=== PATIENT | female | born 1950 | race Caucasian/White ===

== ENCOUNTER 2018-03-21 14:02 | Inpatient (IN) | payer MEDICARE, BC, SELFPAY ==
[2018-03-21] VITALS (21 sets, daily range): BP systolic 102–158; BP diastolic 35–74; PULSE 78–103; RESP 16–28; TEMP 36.6–40.9; O2SAT 93–99
[2018-03-21] MEDS: Lactated Ringers 1,000 ML 1000 ML IV (14:32)
[2018-03-21 14:38] LABS: Lactate 2.5 mmol/L (0.6-1.4)
--- NOTE | 2018-03-21 14:39 | W.ED.GENAD ---
Discharge Plan Disposition Patient Disposition: [facility] INPATIENT Condition: Poor Discharge Details Chief Complaint: Fever Clinical Impression: Anemia, GI bleed, Decreased renal function Reason For Visit: PYELONEPHRITIS Admit Date/Time: 03/21/18 17:53 Admit Provider: Ronnie Joseph Attending Provider: Ronnie Joseph Primary Care Provider: Mara Pantoja ED Provider: Shwetha Fishman Discharge Data Discharge Date/Time-TO BE ENTERED AT DEPARTURE: 03/21/18 17:30 Medical Decision Making <Wilton Keane NP - Last Filed: 03/22/18 14:41> Patient presenting to the emergency department with chief complaint of malaise and not feeling well for the past 2 weeks. Significant other reports approximately 2 weeks ago she began feeling chilled and has continued to feel that way up until 2 days ago where she started having some diarrhea. Patient denies any cough, nasal congestion, sinus pressure or cold-like symptoms, denies any vomiting, denies any sick contacts, denies any obvious bloody bowel movements or dark or tarry bowel movements. Physical exam shows a ill-appearing patient that is tachycardic with significant pallor noted, heart sounds are otherwise unremarkable, lung sounds are clear throughout all lung tran, abdomen does have some tenderness to left side but no other physical exam findings are noted. Patient is febrile. Plan to check sepsis labs, and blood cultures, tablets IV access and give fluids. Chest x-ray was also ordered. Plan to review CMP results prior to ordering CT scan of the abdomen. Patient denies any need of pain medication at this time. Review of labs show a lactate of 2.5, hemoglobin 6.3, hematocrit 21.7. Rectal examination was done and showed Hemoccult positive stool specimen but no gross bleeding is noted. Otherwise unremarkable rectal exam. Given significant low hemoglobin and patient being symptomatic I did discuss with patient blood transfusion, possible reactions, risk versus benefit. After this discussion patient was in agreement to receiving blood transfusion and 2 units were ordered to begin as soon as possible. Discussed case with both inpatient hospitalist and general surgeon in regards of patient's symptoms and consideration of possible CT scan but concerned in regards to patient's decreased renal function along with anemia. Hospitalist recommended consulting surgery for concern of GI bleed but stated he would be willing to consult if needed. Spoke with Dr. Modi general surgeon who agreed to come to the emergency department and evaluate the patient. ECG Data Interpretation: EKG reviewed with Dr. Sanford and shows a sinus tachycardia with a rate of 105,, DC intervals of 114, nonspecific ST depression. <DANIELLE Schroeder - Last Filed: 03/21/18 17:38> Care of patient was assumed by myself from Dain Keane NP with recommendations from general surgery pending. General surgeon, Dr. Joseph, evaluated the patient and advised admission. He has placed admission orders. HPI <Wilton Keane NP - Last Filed: 03/22/18 14:41> General Mode of arrival: ambulatory. Date/Time Provider Initiated Documentation: 03/21/18 14:09. Limitations to Documentation: no limitations. Information obtained by: patient, RN/MD and RN notes reviewed. History of Present Illness 67 year old F presents to the emergency department with the chief complaint of Generalized malaise, fever, described as moderate, Quality is described as other (Denies any pain or discomfort), Patient started experiencing this week(s) (2) and it has been constant. No relieving factors improve symptom(s), No exacerbating factors reported . Patient did receive the following treatments prior to arrival, none Related Data Home Medications Medication Instructions Recorded Confirmed lancets [Good4UTouch UltraSoft ea 06/05/12 03/21/18 Lancets] Prilosec OTC 20 mg PO DAILY #90 tab 12/03/14 03/21/18 clotrimazole-betamethasone 1 marky TOPICAL PRN #1 tube 12/03/14 03/21/18 aspirin [Aspirin Low-Strength] 81 mg PO DAILY tab-cap 03/06/15 03/21/18 clobetasol 1 marky TOPICAL HS #1 tube 03/06/15 03/21/18 triamcinolone acetonide 15 gm TOPICAL DAILY script 03/24/17 03/21/18 Good4Utouch Ultra Test Strips 1 ea MISCELLANEOUS TID #300 strip 07/11/17 03/21/18 hydrochlorothiazide 12.5 mg PO DAILY #90 tab-cap 07/14/17 03/21/18 metoprolol tartrate 25 mg PO BID #200 tab 07/14/17 03/21/18 glimepiride 4 mg PO DAILY #90 tab-cap 08/29/17 03/21/18 losartan 100 mg PO DAILY #90 tab-cap 18 03/21/18 metformin 2 tab PO BID #360 tab-cap 08/29/17 03/21/18 pravastatin 10 mg PO DAILY #90 tab-cap 18 03/21/18 lorazepam 0.5 mg tablet 0.5 mg SL TID PRN #10 tab 02/20/18 03/21/18 insulin glargine (U-100) 100 30 unit SUBCUT HS #9 ml 03/08/18 03/21/18 unit/mL (3 mL) subcutaneous pen pen needle, diabetic 31 gauge x #300 ndl 03/08/18 03/21/1808/02 liraglutide [Victoza 3-Melquiades] 1.6 mg SUBCUT DAILY 03/21/18 03/21/18 Previous Rx's Medication Instructions Recorded hydrochlorothiazide 12.5 mg PO DAILY #90 tab-cap 07/14/17 metoprolol tartrate 25 mg PO BID #200 tab 07/14/17 glimepiride 4 mg PO DAILY #90 tab-cap 08/29/17 losartan 100 mg PO DAILY #90 tab-cap 08/29/17 metformin 2 tab PO BID #360 tab-cap 08/29/17 pravastatin 10 mg PO DAILY #90 tab-cap 08/29/17 lorazepam 0.5 mg tablet 0.5 mg SL TID PRN #10 tab 02/20/18 insulin glargine (U-100) 100 30 unit SUBCUT HS #9 ml 03/08/18 unit/mL (3 mL) subcutaneous pen pen needle, diabetic 31 gauge x #300 ndl 03/08/1808/02 Allergies Allergy/AdvReac Type Severity Reaction Status Date / Time ciprofloxacin Allergy Intermediate Skin Rash Verified 03/21/18 14:13 lisinopril AdvReac Intermediate cough Verified 03/21/18 14:13 simvastatin AdvReac Intermediate fatigue Verified 03/21/18 14:13 codeine [Codeine] AdvReac nausea/vomi Verified 03/21/18 14:13 ting General Stated Complaint: Fever ANDRES: 3 Review of Systems <Wilton Keane NP - Last Filed: 03/22/18 14:41> Constitutional Reports chills, Reports fatigue, Reports fever(s) and Reports malaise Cardiovascular Denies chest pain Respiratory Denies cough Gastrointestinal Reports abdominal pain, Denies melena, Denies hematochezia, Reports diarrhea, Reports nausea, Denies vomiting and Denies hematemesis Genitourinary Denies urinary urgency and Denies vaginal discharge Integumentary/Breasts Denies bleeding lesions and Denies unusual bruising Endocrine Reports fatigue PFSH <Wilton Keane NP - Last Filed: 03/22/18 14:41> Medical History Tubular adenoma (Resolved 10/06/15) Other and unspecified hyperlipidemia (Chronic 06/07/12) Non-alcoholic fatty liver disease (Chronic 04/12/11) Lichen sclerosus et atrophicus (Chronic 07/26/11) 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) Gastroesophageal reflux disease (Chronic 04/12/11) Essential hypertension (Chronic 02/05/13) Diabetes mellitus type 2, controlled, without complications (Chronic 06/07/12) COPD (chronic obstructive pulmonary disease) (Acute 10/29/14) Diabetes mellitus, type 2 GERD (gastroesophageal reflux disease) Hiatal hernia Hypertension Lichen sclerosus et atrophicus Premature menopause Surgical History Appendectomy Biopsy of breast Colonoscopy (10/06/15) Endoscopy Family History Father Diabetes Sister Diabetes Breast cancer Other Heart disease Personal history of malignant neoplasm Social History household members: spouse housing: house lives independently: Yes number of children: 3 number of grandchildren: 2 current occupational status: retired well-balanced diet: daily or most days Smoking/Tobacco Use Status: Former Tobacco Use substance use type: does not use seatbelt use: always drive intox or ride w/ intox local 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 working smoke detector in home: Yes fire extinguisher in home: Yes carbon monox detector in home: Yes Exam <Wilton Keane NP - Last Filed: 03/22/18 14:41> Const General: cooperative, no acute distress and ill appearing Nutritional Appearance: thin Orientation: alert, awake and oriented x3 HENMT Mouth: oral mucosa abnormal other (dry) Eyes Conjunctivae: conjunctival abnormality bilaterally pallor Resp Effort & Inspection: normal respiratory effort, able to speak in complete sentences, no grunting and no use of accessory muscles Auscultation: clear to auscultation bilaterally Cardio Rate: tachycardic Rhythm: regular rhythm Heart Sounds: S1 normal, S2 normal, no click, no gallops, no murmurs and no rubs GI Inspection: normal to inspection Palpation: soft, no hepatosplenomegaly, not firm, no guarding and tender in the LLQ and in the LUQ; not at McBurney's point, Spann's sign negative and Rovsing's sign negative Auscultation: high-pitched sounds and hyperactive bowel sounds Back/Spine/Pelvis Back: no CVA tenderness Skin General skin exam: pallor Neuro General: alert, awake, oriented x3, moves all extremities and no focal motor deficits Course <Wilton Keane NP - Last Filed: 03/22/18 14:41> Vital Signs Temperature 38.3 C H 03/21/18 14:07 Pulse 100 H 03/21/18 14:07 Respiratory Rate 18 03/21/18 14:07 Blood Pressure 158/49 H 03/21/18 14:07 Pulse Oximetry 99 03/21/18 14:07 Temperature 38.3 C H 03/21/18 14:07 Temperature Source Temporal Artery Scan 03/21/18 14:07 Pulse 103 H 03/21/18 14:30 Respiratory Rate 18 03/21/18 14:07 Blood Pressure 141/41 H 03/21/18 14:30 Pulse Oximetry 95 03/21/18 14:30 Oxygen Delivery Method Room Air 03/21/18 14:30 Oxygen Flow Rate 0 03/21/18 14:30 Pain Level 0 03/21/18 14:30 Lab/Test Results Lab/Test Results: 03/21/18 14:27 Blood Blood Culture - Pending 03/21/18 14:27 Nose Influenza Types A,B Antigen - Pending 03/21/18 14:24 Blood Blood Culture - Pending Laboratory Tests Range/Units 03/21/18 14:27 Lactate (0.6-1.4) mmol/L 2.5 H* Sign Out <Wilton Keane NP - Last Filed: 03/22/18 14:41> Sign Out Data: Sign Out Comment: Patient signed out to Jerri Fishman pending surgical consult for concern of GI bleed Last updated by Wilton Keane [employer]JUNCT INSTRUCTOR IN [employer]ICS at 03/21/18 16:15
[2018-03-21] MEDS: Ondansetron O.D.T. 4 MG TABEF PO (14:40)
[2018-03-21] MEDS: Acetaminophen 325 MG TAB 650 MG PO (14:40)
[2018-03-21 14:43] LABS: Abs Immature Grans 0.02 k/cumm (0.0-0.09); Absolute Basophil Count 0.01 k/cumm (0.0-0.2); Absolute Lymphocyte Count 0.45 k/cumm (1.2-3.4); Absolute Monocyte Count 0.23 k/cumm (0.11-0.7); Absolute Neutrophil Count 3.34 k/cumm (1.2-6.7); Basophils % 0.2; HCT 21.7 % (36.0-46.0); Immature Grans % 0.5; Lymphocytes % 11.1; Mean Corpuscular Hemoglobin 20.2 pg (27.0-33.0); Mean Corpuscular Volume 69.6 fL (80-95); Monocytes % 5.7; Neutrophils % 82.5; Platelet Count 173 x1000/uL (130-400); RBC 3.12 m/cumm (4.00-5.20); RBC Distribution Width 20.1 % (11.7-14.6); White Blood Cell Count 4.05 k/cumm (4.4-10.8)
--- NOTE | 2018-03-21 14:48 | ED.GENADUL_ITS ---
Discharge Plan Disposition Patient Disposition: [facility] INPATIENT Condition: Poor Discharge Details Chief Complaint: Fever Clinical Impression: Anemia, GI bleed, Decreased renal function Reason For Visit: PYELONEPHRITIS Admit Date/Time: 03/21/18 17:53 Admit Provider: Ronnie Joseph Attending Provider: Ronnie Joseph Primary Care Provider: Mara Pantoja ED Provider: Shwetha Fishman Discharge Data Discharge Date/Time-TO BE ENTERED AT DEPARTURE: 03/21/18 17:30 Medical Decision Making <Wilton Keane NP - Last Filed: 03/22/18 14:41> Patient presenting to the emergency department with chief complaint of malaise and not feeling well for the past 2 weeks. Significant other reports approximately 2 weeks ago she began feeling chilled and has continued to feel that way up until 2 days ago where she started having some diarrhea. Patient denies any cough, nasal congestion, sinus pressure or cold-like symptoms, denies any vomiting, denies any sick contacts, denies any obvious bloody bowel movement s or dark or tarry bowel movements. Physical exam shows a ill-appearing patient that is tachycardic with significant pallor noted, heart sounds are otherwise unremarkable, lung sounds are clear throughout all lung tran, abdomen does have some tenderness to left side but no other physical exam findings are noted. Patient is febrile. Plan to check sepsis labs, and blood cultures, tablets IV access and give fluids. Chest x-ray was also ordered. Plan to review CMP results prior to ordering CT scan of the abdomen. Patient denies any need of pain medication at this time. Review of labs show a lactate of 2.5, hemoglobin 6.3, hematocrit 21.7. Rectal examination was done and showed Hemoccult positive stool specimen but no gross bleeding is noted. Otherwise unremarkable rectal exam. Given significant low hemoglobin and patient being symptomatic I did discuss with patient blood transfusion, possible reactions, risk versus benefit. After this discussion patient was in agreement to receiving blood transfusion and 2 units were ordered to begin as soon as possible. Discussed case with both inpatient hospitalist and general surgeon in regards of patient's symptoms and consideration of possible CT scan but concerned in regards to patient's decreased renal function along with anemia. Hospitalist recommended consulting surgery for concern of GI bleed but stated he would be willing to consult if needed. Spoke with Dr. Modi general surgeon who agreed to come to the emergency department and evaluate the patient. ECG Data Interpretation: EKG reviewed with Dr. Sanford and shows a sinus tachycardia with a rate of 105,, IA intervals of 114, nonspecific ST depression. <DANIELLE Schroeder - Last Filed: 03/21/18 17:38> Care of patient was assumed by myself from Dain Keane NP with recommendations from general surgery pending. General surgeon, Dr. Joseph, evaluated the patient and advised admission. He has placed admission orders. HPI <Wilton Keane NP - Last Filed: 03/22/18 14:41> General Mode of arrival: ambulatory . Date/Time Provider Initiated Documentation: 03/21/18 14:09 . Limitations to Documentation: no limitations . Information obtained by: patient, RN/MD and RN notes reviewed . History of Present Illness 67 year old F presents to the emergency department with the chief complaint of Generalized malaise, fever, described as moderate, Quality is described as other (Denies any pain or discomfort), Patient started experiencing this week(s) (2) and it has been constant. No relieving factors improve symptom(s), No exacerbating factors reported . Patient did receive the following treatments prior to arrival, none Related Data Home Medications Medication Instructions Recorded Confirmed lancets [OneTouch UltraSoft ea 06/05/12 03/21/18 Lancets] Prilosec OTC 20 mg PO DAILY #90 tab 12/03/14 03/21/18 clotrimazole-betamethasone 1 marky TOPICAL PRN #1 tube 12/03/14 03/21/18 aspirin [Aspirin Low-Strength] 81 mg PO DAILY tab-cap 03/06/15 03/21/18 clobetasol 1 amrky TOPICAL HS #1 tube 03/06/15 03/21/18 triamcinolone acetonide 15 gm TOPICAL DAILY script 03/24/17 03/21/18 Onetouch Ultra Test Strips 1 ea MISCELLANEOUS TID #300 strip 07/11/17 03/21/18 hydrochlorothiazide 12.5 mg PO DAILY #90 tab-cap 07/14/17 03/21/18 metoprolol tartrate 25 mg PO BID #200 tab 07/14/17 03/21/18 glimepiride 4 mg PO DAILY #90 tab-cap 08/29/17 03/21/18 losartan 100 mg PO DAILY #90 tab-cap 18 03/21/18 metformin 2 tab PO BID #360 tab-cap 08/29/17 03/21/18 pravastatin 10 mg PO DAILY #90 tab-cap 18 03/21/18 lorazepam 0.5 mg tablet 0.5 mg SL TID PRN #10 tab 02/20/18 03/21/18 insulin glargine (U-100) 100 30 unit SUBCUT HS #9 ml 03/08/18 03/21/18 unit/mL (3 mL) subcutaneous pen pen needle, diabetic 31 gauge x #300 ndl 03/08/18 03/21/1808/02 liraglutide [Victoza 3-Melquiades] 1.6 mg SUBCUT DAILY 03/21/18 03/21/18 Previous Rx's Medication Instructions Recorded hydrochlorothiazide 12.5 mg PO DAILY #90 tab-cap 07/14/17 metoprolol tartrate 25 mg PO BID #200 tab 07/14/17 glimepiride 4 mg PO DAILY #90 tab-cap 08/29/17 losartan 100 mg PO DAILY #90 tab-cap 08/29/17 metformin 2 tab PO BID #360 tab-cap 08/29/17 pravastatin 10 mg PO DAILY #90 tab-cap 08/29/17 lorazepam 0.5 mg tablet 0.5 mg SL TID PRN #10 tab 02/20/18 insulin glargine (U-100) 100 30 unit SUBCUT HS #9 ml 03/08/18 unit/mL (3 mL) subcutaneous pen pen needle, diabetic 31 gauge x #300 ndl 03/08/1808/02 Allergies Allergy/AdvReac Type Severity Reaction Status Date / Time ciprofloxacin Allergy Intermediate Skin Rash Verified 03/21/18 14:13 lisinopril AdvReac Intermediate cough Verified 03/21/18 14:13 simvastatin AdvReac Intermediate fatigue Verified 03/21/18 14:13 codeine [Codeine] AdvReac nausea/vomi Verified 03/21/18 14:13 ting General Stated Complaint: Fever ANDRES: 3 Review of Systems <Wilton Keane NP - Last Filed: 03/22/18 14:41> Constitutional Reports chills, Reports fatigue, Reports fever(s) and Reports malaise Cardiovascular Denies chest pain Respiratory Denies cough Gastrointestinal Reports abdominal pain, Denies melena, Denies hematochezia, Reports diarrhea, Reports nausea, Denies vomiting and Denies hematemesis Genitourinary Denies urinary urgency and Denies vaginal discharge Integumentary/Breasts Denies bleeding lesions and Denies unusual bruising Endocrine Reports fatigue PFSH <Wilton Keane NP - Last Filed: 03/22/18 14:41> Medical History Tubular adenoma (Resolved 10/06/15) Other and unspecified hyperlipidemia (Chronic 06/07/12) Non-alcoholic fatty liver disease (Chronic 04/12/11) Lichen sclerosus et atrophicus (Chronic 07/26/11) 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) Gastroesophageal reflux disease (Chronic 04/12/11) Essential hypertension (Chronic 02/05/13) Diabetes mellitus type 2, controlled, without complications (Chronic 06/07/12) COPD (chronic obstructive pulmonary disease) (Acute 10/29/14) Diabetes mellitus, type 2 GERD (gastroesophageal reflux disease) Hiatal hernia Hypertension Lichen sclerosus et atrophicus Premature menopause Surgical History Appendectomy Biopsy of breast Colonoscopy (10/06/15) Endoscopy Family History Father Diabetes Sister Diabetes Breast cancer Other Heart disease Personal history of malignant neoplasm Social History household members: spouse housing: house lives independently: Yes number of children: 3 number of grandchildren: 2 current occupational status: retired well-balanced diet: daily or most days Smoking/Tobacco Use Status: Former Tobacco Use substance use type: does not use seatbelt use: always drive intox or ride w/ intox log driver: No working smoke detector in home: Yes fire extinguisher in home: Yes carbon monox detector in home: Yes Exam <Wilton Keane NP - Last Filed: 03/22/18 14:41> Const General: cooperative, no acute distress and ill appearing Nutritional Appearance: thin Orientation: alert, awake and oriented x3 HENMT Mouth: oral mucosa abnormal other (dry) Eyes Conjunctivae: conjunctival abnormality bilaterally pallor Resp Effort & Inspection: normal respiratory effort, able to speak in complete sentences, no grunting and no use of accessory muscles Auscultation: clear to auscultation bilaterally Cardio Rate: tachycardic Rhythm: regular rhythm Heart Sounds: S1 normal, S2 normal, no click, no gallops, no murmurs and no rubs GI Inspection: normal to inspection Palpation: soft, no hepatosplenomegaly, not firm, no guarding and tender in the LLQ and in the LUQ; not at McBurney's point, Spann's sign negative and Rovsing's sign negative Auscultation: high-pitched sounds and hyperactive bowel sounds Back/Spine/Pelvis Back: no CVA tenderness Skin General skin exam: pallor Neuro General: alert, awake, oriented x3, moves all extremities and no focal motor deficits Course <Wilton Keane NP - Last Filed: 03/22/18 14:41> Vital Signs Temperature 38.3 C H 03/21/18 14:07 Pulse 100 H 03/21/18 14:07 Respiratory Rate 18 03/21/18 14:07 Blood Pressure 158/49 H 03/21/18 14:07 Pulse Oximetry 99 03/21/18 14:07 Temperature 38.3 C H 03/21/18 14:07 Temperature Source Temporal Artery Scan 03/21/18 14:07 Pulse 103 H 03/21/18 14:30 Respiratory Rate 18 03/21/18 14:07 Blood Pressure 141/41 H 03/21/18 14:30 Pulse Oximetry 95 03/21/18 14:30 Oxygen Delivery Method Room Air 03/21/18 14:30 Oxygen Flow Rate 0 03/21/18 14:30 Pain Level 0 03/21/18 14:30 Lab/Test Results Lab/Test Results: 03/21/18 14:27 Blood Blood Culture - Pending 03/21/18 14:27 Nose Influenza Types A,B Antigen - Pending 03/21/18 14:24 Blood Blood Culture - Pending Laboratory Tests Range/Units 03/21/18 14:27 Lactate (0.6-1.4) mmol/L 2.5 H* Sign Out <Wilton Keane NP - Last Filed: 03/22/18 14:41> Sign Out Data: Sign Out Comment: Patient signed out to Jerri Fishman pending surgical consult for concern of GI bleed Last updated by Wilton Keane [employer]P ROOM SUPERVISOR at 03/21/18 16:15
[2018-03-21 15:04] LABS: HGB 6.3 g/dL (12.0-15.5)
[2018-03-21 15:05] LABS: Anisocytosis 2+; Diff Comment Agrees w/ Instrument; Hypochromasia 3+; Nucleated RBC 1 /100WBC
[2018-03-21 15:06] LABS: Microcytosis 3+; Poikilocytes 1+; Polychromasia Present
--- NOTE | 2018-03-21 15:06 | DI.RAD_ITS ---
SYMPTOMS/DIAGNOSIS: FEVER PA AND LATERAL CHEST: Comparison is made with May,. The heart size is normal. The lungs are well inflated and clear. No infiltrate or effusion is seen. IMPRESSION: Negative chest x-ray.
[2018-03-21 15:19] LABS: ESR 60 MM/HR (0-30)
[2018-03-21 15:28] LABS: ALT 23 U/L (12-78); AST 40 U/L (15-37); Albumin 3.4 g/dL (3.4-5.0); Alkaline Phosphatase 64 U/L (46-116); Anion Gap 13.3 mmol/L (3-11); BUN 18 mg/dL (7-18); Bilirubin, Total 1.6 mg/dL (0.2-1.0); C-Reactive Protein 3.35 mg/dL (0.0-0.3); CO2 25.7 mmol/L (21.0-32.0); Calcium 8.4 mg/dL (8.5-10.1); Chloride 93 mmol/L (98-107); Estimated GFR 49.69 (mL/min/1.73m2); Glucose 112 mg/dL (70-100); Potassium 3.4 mmol/L (3.5-5.1); Sodium 132 mmol/L (136-145); Total Protein 7.2 g/dL (6.4-8.2)
[2018-03-21 15:36] LABS: Bilirubin Small (Negative); Blood Negative (Negative); Clarity Clear; Glucose Negative (Negative); Ketones 15 mg/dL (Negative); Leukocyte Esterase Negative (Negative); Nitrite Positive (Negative); Specific Gravity 1.025 (1.005-1.025); Urobilinogen 0.2 EU/dL (Up TO 0.2); pH 5.5 (5-8)
[2018-03-21 15:49] LABS: Bacteria Packed HPF (Negative)
[2018-03-21 15:50] LABS: C & S Indicated? Yes
--- NOTE | 2018-03-21 15:59 | NUR.NOTE ---
patient drowsy, patient guiac positive, #18 right wrist, patient signed blood consent form. patient to be admitted Nursing Note:
[2018-03-21 18:25] LABS: Magnesium 1.4 mg/dL (1.8-2.4)
--- NOTE | 2018-03-21 19:54 | NUR.NOTE ---
report given to Drake RN, PATIENT TRANSFERED TO FLOOR WITH MONITOR AND BLOOD INFUSING Nursing Note:
[2018-03-21] MEDS: Metoprolol 12.5 MG TAB PO (20:04)
[2018-03-21] MEDS: Lactated Ringers 1,000 ML 150 ML IV (20:05)
[2018-03-21] MEDS: MAGNESIUM SULFATE 2 GM/50 ML BAG IVPB (20:05)
[2018-03-21] MEDS: Normal Saline Flush 10 ML SYR IVP (20:06)
[2018-03-21] MEDS: ACETAMINOPHEN 1,000 MG/100 ML BTL 400 MG IVPB (20:14)
--- NOTE | 2018-03-21 20:28 | W.PM.HP.N ---
Date of service: 03/21/18 Time of Service: 17:00 Assessment and Plan (1) Pyelonephritis, acute: Current visit: Yes Status: Acute Culture pending, started on empiric Zosyn (2) Anemia: Current visit: Yes Status: Acute Will obtain iron studies, suspect that this is chronic, plan for EGD/colonoscopy this admission Qualifiers: Anemia type: unspecified type Qualified Code(s): D64.9 - Anemia, unspecified (3) Fever and chills: Current visit: Yes Status: Acute Secondary to pyelonephritis will treat with tylenol (4) DERRELL (acute kidney injury): Current visit: Yes Status: Acute Fluid resuscitation started, aggressively hydrate, repeat labs in am (5) Supraventricular tachycardia, paroxysmal: Current visit: No Status: Chronic Continue metoprolol, telemetry monitoring. (6) Diabetes mellitus type 2, controlled, without complications: Current visit: No Status: Chronic Started insulin protocol History of Present Illness Chief Complaint: Fever, Fatigue, Anemia Narrative: 67-year-old female presenting to the emergency room with fever and fatigue. She has had about 2 weeks of progressively worsening fatigue with nausea, and anorexia. She also reports a history of diarrhea that has been intermittent before this which was thought to be medication related. She had been traveling over the last few weeks to [place], but denies any known sick contacts. She had been flying on commercial airlines, she has eaten out recently but knows of no other illnesses related to where she ate. Workup in the emergency room showed that she was anemic with a hemoglobin of 6.3. She was hemodynamically stable. She was febrile to 38.3, and is complaining of chills. Further workup showed that she had a urinary tract infection and most likely pyelonephritis on her right side. Chest x-ray showed no acute process. Surgery was consulted for her anemia, and she was admitted to the surgical services for workup of her anemia and treatment of pyelonephritis. Review of Systems Constitutional Reports anorexia, Reports chills, Reports fever(s), Denies headache(s), Reports lethargy, Reports malaise, Reports poor appetite, Denies snoring and Reports weakness Eyes Denies blurry vision, Denies diplopia, Denies loss of vision and Reports requires corrective lenses ENT Denies dental pain, Denies vertigo, Denies dizziness, Denies headache(s), Denies hoarseness, Denies epistaxis, Denies nasal congestion and Denies tinnitus Cardiovascular Denies bluish discoloration of hand/feet, Denies chest pain at rest, Denies chest pain with activity, Denies rapid heart rate, Denies pedal edema, Denies leg edema, Denies lightheadedness, Denies radiating jaw, neck or arm pain and Denies dyspnea Respiratory Denies change in phlegm color, Denies chest congestion, Denies pain on inspiration, Denies dyspnea, Denies snoring and Denies wheezing Gastrointestinal Denies abdominal pain, Denies melena, Denies bloating, Denies cramping, Denies early satiety, Denies dyspepsia, Reports heartburn, Reports loose stools, Reports nausea and Denies vomiting Genitourinary Denies urinary frequency, Denies dysuria, Denies urinary incontinence, Denies urinary hesitancy and Denies urinary urgency Neurologic Denies confusion, Denies vertigo, Denies dizziness, Denies headache(s), Denies loss of vision, Denies convulsions and Reports weakness Psychiatric Reports abnormal sleep pattern, Reports anxiety, Denies confusion, Denies irritability and Denies mood swings Endocrine Denies polyphagia, Denies polydipsia and Denies polyuria Hematologic/Lymphatic Denies easy bleeding and Denies easy bruising Allergic/Immunologic Denies wheezing PFSH Medical History Diabetes mellitus, type 2 GERD (gastroesophageal reflux disease) Hiatal hernia Hypertension Lichen sclerosus et atrophicus Premature menopause Surgical History Appendectomy Biopsy of breast Colonoscopy (10/06/15) Endoscopy Family History Father Diabetes Sister Diabetes Breast cancer Other Heart disease Personal history of malignant neoplasm Social History household members: spouse housing: house lives independently: Yes number of children: 3 number of grandchildren: 2 current occupational status: retired well-balanced diet: daily or most days Smoking/Tobacco Use Status: Former Tobacco Use substance use type: does not use seatbelt use: always drive intox or ride w/ intox route driver coin machines: No working smoke detector in home: Yes fire extinguisher in home: Yes carbon monox detector in home: Yes Meds Home Medications Medication Instructions Recorded Confirmed Type lancets [OneTouch UltraSoft ea 06/05/12 03/21/18 History Lancets] Prilosec OTC 20 mg PO DAILY #90 tab 12/03/14 03/21/18 History clotrimazole-betamethasone 1 marky TOPICAL PRN #1 tube 12/03/14 03/21/18 History aspirin [Aspirin Low-Strength] 81 mg PO DAILY tab-cap 03/06/15 03/21/18 History clobetasol 1 marky TOPICAL HS #1 tube 03/06/15 03/21/18 History triamcinolone acetonide 15 gm TOPICAL DAILY script 03/24/17 03/21/18 History Onetouch Ultra Test Strips 1 ea MISCELLANEOUS TID #300 strip 07/11/17 03/21/18 History hydrochlorothiazide 12.5 mg PO DAILY #90 tab-cap 07/14/17 03/21/18 Rx metoprolol tartrate 25 mg PO BID #200 tab 07/14/17 03/21/18 Rx glimepiride 4 mg PO DAILY #90 tab-cap 08/29/17 03/21/18 Rx losartan 100 mg PO DAILY #90 tab-cap 08/29/17 03/21/18 Rx metformin 2 tab PO BID #360 tab-cap 08/29/17 03/21/18 Rx pravastatin 10 mg PO DAILY #90 tab-cap 08/29/17 03/21/18 Rx lorazepam 0.5 mg tablet 0.5 mg SL TID PRN #10 tab 02/20/18 03/21/18 Rx insulin glargine (U-100) 100 30 unit SUBCUT HS #9 ml 03/08/18 03/21/18 Rx unit/mL (3 mL) subcutaneous pen pen needle, diabetic 31 gauge x #300 ndl 03/08/18 03/21/18 Rx 16 liraglutide [Victoza 3-Melquiades] 1.6 mg SUBCUT DAILY 03/21/18 03/21/18 History Allergies Allergy/AdvReac Type Severity Reaction Status Date / Time ciprofloxacin Allergy Intermediate Skin Rash Verified 03/21/18 14:13 lisinopril AdvReac Intermediate cough Verified 03/21/18 14:13 simvastatin AdvReac Intermediate fatigue Verified 03/21/18 14:13 codeine [Codeine] AdvReac nausea/vomi Verified 03/21/18 14:13 ting Exam Const General: cooperative, no acute distress, well developed and not anxious Nutritional Appearance: average body habitus and well nourished Orientation: alert, awake and oriented x3 HENMT Head: normal to inspection, normocephalic and atraumatic Ears: hearing grossly normal bilaterally General nose exam: external nose normal Face and sinus: normal facial exam Mouth: oral mucosa abnormal other (pale) Teeth and gingiva: dentition normal Throat: posterior oropharynx normal Eyes General: appearance normal, both eyes and all related structures Periorbital: periorbital findings normal Conjunctivae: conjunctivae normal Sclera: sclerae normal Cornea: corneas normal Pupils: PERRL EOM: EOM intact bilaterally Neck Neck: normal visual inspection, trachea midline and supple Chest Chest: normal inspection of the chest Resp Effort & Inspection: normal respiratory effort and able to speak in complete sentences Cardio Jugular venous pressure: no JVD Rate: regular rate Rhythm: regular rhythm Heart Sounds: S1 normal and S2 normal GI Inspection: normal to inspection and non-distended Palpation: not firm, no guarding and nontender Rectal Exam - female: deferred General: CVA tenderness on the right Skin General skin exam: turgor decreased and other (diaphorectic) Lesions: no lesions Rashes: no rashes Hair: normal Neuro General: moves all extremities, no focal motor deficits and CN's II-XI intact bilaterally Extrem General: full ROM, normal capillary refill and no clubbing, cyanosis or edema Psych Appearance: grossly normal and well kempt Mental Status: mental status grossly normal Affect: normal affect Judgment: judgment good Results Labs : 03/21/18 14:27 03/21/18 14:27 Laboratory Results - last 24 hr 03/21/18 03/21/18 03/21/18 14:27 14:27 14:27 WBC 4.05 L RBC 3.12 L Hgb 6.3 L* Hct 21.7 L MCV 69.6 L MCH 20.2 L MCHC 29.0 L RDW 20.1 H Plt Count 173 MPV 10.0 Immature Gran % 0.5 Neutrophils % 82.5 Lymphocytes % 11.1 Monocytes % 5.7 Eosinophils % 0.0 Basophils % 0.2 Absolute Neutrophils 3.34 Absolute Lymphocytes 0.45 L Absolute Monocytes 0.23 Absolute Eosinophils 0.00 Absolute Basophils 0.01 Nucleated RBCs 1 Differential Comment Agrees w/ instrument RBC Morphology See below Polychromasia Present Hypochromasia 3+ Poikilocytosis 1+ Anisocytosis 2+ Microcytosis 3+ ESR 60 H Sodium 132 L Potassium 3.4 L Chloride 93 L Carbon Dioxide 25.7 Anion Gap 13.3 H BUN 18 Creatinine 1.10 H Estimated GFR/1.73 m2 49.69 Glucose 112 H Lactate 2.5 H* Calcium 8.4 L Magnesium Total Bilirubin 1.6 H AST 40 H ALT 23 Alkaline Phosphatase 64 C-Reactive Protein 3.35 H Total Protein 7.2 Albumin 3.4 Urine Color Urine Clarity Urine pH Ur Specific [place] Urine Protein Urine Ketones Urine Blood Urine Nitrite Urine Bilirubin Urine Urobilinogen Ur Leukocyte Esterase Urine RBC Urine WBC Ur Epithelial Cells Urine Crystals Urine Bacteria Urine Mucus Ur Culture Indicated? Urine Glucose Patient ABO/Rh A Positive Antibody Screen Negative Crossmatch See Detail 03/21/18 03/21/18 14:32 15:25 WBC RBC Hgb Hct MCV MCH MCHC RDW Plt Count MPV Immature Gran % Neutrophils % Lymphocytes % Monocytes % Eosinophils % Basophils % Absolute Neutrophils Absolute Lymphocytes Absolute Monocytes Absolute Eosinophils Absolute Basophils Nucleated RBCs Differential Comment RBC Morphology Polychromasia Hypochromasia Poikilocytosis Anisocytosis Microcytosis ESR Sodium Potassium Chloride Carbon Dioxide Anion Gap BUN Creatinine Estimated GFR/1.73 m2 Glucose Lactate Calcium Magnesium 1.4 L Total Bilirubin AST ALT Alkaline Phosphatase C-Reactive Protein Total Protein Albumin Urine Color Jil Urine Clarity Clear Urine pH 5.5 Ur Specific [place] 1.025 Urine Protein 30 H Urine Ketones 15 H Urine Blood Negative Urine Nitrite Positive H Urine Bilirubin Small H Urine Urobilinogen 0.2 Ur Leukocyte Esterase Negative Urine RBC Not Applicable Urine WBC Ur Epithelial Cells Not Applicable Urine Crystals Not Applicable Urine Bacteria Packed Urine Mucus Not Applicable Ur Culture Indicated? Yes Urine Glucose Negative Patient ABO/Rh Antibody Screen Crossmatch Last Vital Signs Temp 37.6 C H 03/21/18 19:59 Pulse 87 03/21/18 19:59 Resp 18 03/21/18 19:59 BP 127/74 03/21/18 19:59 Pulse Ox 99 03/21/18 19:59
[2018-03-21] MEDS: PIPERACILLIN/TAZO 3.375 GM in Normal Saline 50 ML IVPB (22:00)
[2018-03-22] VITALS (18 sets, daily range): BP systolic 98–179; BP diastolic 54–76; PULSE 38–96; RESP 16–24; TEMP 36.6–40.8; O2SAT 93–99
--- NOTE | 2018-03-22 00:42 | NUR.NOTE ---
Pt came from the emergency department accompanied by YANDEL Antoine from the said department. Patient voiced that she is having mild pain to the right flank area after she was assessed by the Dr in the ER department. She gave history of weakness, fever, bloody diarrhoea, chills for 2-3 weeks. On assessment she is conscious, alert, rational oriented x 3. Mucus membrane pale pink but moist chest clear. Abdomen soft flat and non-tender when palpated. Bilateral 18G branulas insitu with Red Blood Cells progressing at 125mls/hr. No signs of allergic reaction noted or no form abnormalities voiced by patient at this time.. Bilateral pedal pulses felt and no abnormalities noted at this time to the lower extremities.
--- NOTE | 2018-03-22 00:50 | NUR.NOTE ---
Alayna was being transfused as ordered with her second bag of RBCs, she state she feels as if she is having chills, vitals were closely being monitored, patient noticed with a fever , this was handed over to the tubing supervisor who consulted the Dr. further encouraged continue monitoring, and to administer the prescribed anti-pyretic scheduled meds and to continue monitoring seeing that the patient was not having any other symptoms. Ice packs were applied to the under arms and side also the groin area and wash cloth placed on forehead.
[2018-03-22] MEDS: Lactated Ringers 1,000 ML 150 ML IV ×4 (02:48→23:34)
[2018-03-22] MEDS: Normal Saline 500 ML 100 ML IV (03:58)
[2018-03-22] MEDS: ACETAMINOPHEN 1,000 MG/100 ML BTL 400 MG IVPB ×3 (04:00→19:34)
[2018-03-22] MEDS: PIPERACILLIN/TAZO 3.375 GM in Normal Saline 50 ML IVPB ×3 (04:17→16:53)
[2018-03-22 07:23] LABS: Abs Immature Grans 0.02 k/cumm (0.0-0.09); Absolute Monocyte Count 0.17 k/cumm (0.11-0.7); Absolute Neutrophil Count 2.53 k/cumm (1.2-6.7); HCT 25.8 % (36.0-46.0); HGB 7.9 g/dL (12.0-15.5); Immature Grans % 0.7; Lymphocytes % 9.9; Mean Corp. HGB Concentration 30.6 g/dL (32.0-36.0); Mean Corpuscular Hemoglobin 22.6 pg (27.0-33.0); Mean Corpuscular Volume 73.9 fL (80-95); Mean Platelet Volume 9.9 fL (8.0-11.0); Monocytes % 5.6; Neutrophils % 83.8; Platelet Count 123 x1000/uL (130-400); RBC 3.49 m/cumm (4.00-5.20); RBC Distribution Width 22.3 % (11.7-14.6); White Blood Cell Count 3.02 k/cumm (4.4-10.8)
[2018-03-22 07:38] LABS: Anion Gap 8.6 mmol/L (3-11); BUN 15 mg/dL (7-18); CO2 28.4 mmol/L (21.0-32.0); CREATININE 0.96 mg/dL (0.55-1.02); Calcium 7.9 mg/dL (8.5-10.1); Chloride 100 mmol/L (98-107); Estimated GFR 58.15 (mL/min/1.73m2); Glucose 110 mg/dL (70-100); Potassium 3.1 mmol/L (3.5-5.1); Sodium 137 mmol/L (136-145)
[2018-03-22 07:52] LABS: Anisocytosis 3+; Microcytosis 3+
[2018-03-22 07:53] LABS: Poikilocytes 2+
[2018-03-22 07:54] LABS: Diff Comment Diff Reviewed; Polychromasia Present
[2018-03-22 08:53] LABS: Lactate-non-spesis 1.8 mmol/L (0.6-1.4)
--- NOTE | 2018-03-22 09:07 | DI.US_ITS ---
SYMPTOM/DIAGNOSIS: PYURIA, ? HYDRONEPHROSIS RENAL ULTRASOUND: Routine examination was performed. The right kidney measures 11.4 cm. long. The left kidney measures 11 cm. long. No renal masses, calculi or obstruction is identified. There is normal and symmetric blood flow to the kidneys. The urinary bladder was non distended and could not be adequately evaluated sonographically. Incidental note is made of enlarged spleen measuring 17 cm. The liver is enlarged measuring 22 cm. There does appear to be increased echogenicity of the liver diffusely suggesting hepatic steatosis. IMPRESSION: 1. No evidence of hydronephrosis. 2. Hepatosplenomegaly with findings suggestive of hepatic steatosis.
--- NOTE | 2018-03-22 09:07 | PDOC.CMIN ---
Care Management Initial Assess REASON FOR HOSPITALIZATION:: Pyelonephritis PAST MEDICAL HISTORY/PAST SURGICAL HISTORY:: COPD, DM type 2, Essential Hypertension, GERD, Cuttate psoriasis, hiatal hernia, histoplasmosis retinitis, hypertension, lichen sclerosus et atrophicus, non-alcoholic fatty liver disease, unspecified hyperlipidemia, premature menopause, tubular adenoma, appendectomy, biopsy of breast, colonoscopy, endoscopy. PREVIOUS FUNCTIONAL STATUS/SOCIAL/FAMILY SUPPORTS:: Alayna resides in [facility] with her , Seymour. She reports her 36 year old son also recently moved back in with them. The couple has two other sons; one in the [place] the [facility] and one resides in [place]. Alayna also reports she has two grandchildren; a granddaughter and grandson and two step grandchildren. Alayna and Seymour enjoy biking, reading, walking and golfing. They report being an active, family oriented couple. CURRENT FUNCTIONAL STATUS:: Alayna was lying in bed when CM met with her. She reported no new changes since her last admission, she is pleasant in inteaction. ADVANCE DIRECTIVES:: Alayna reports plans to complete document with her . Has patient been provided with information about the portal?: Yes Did the patient sign up for the portal?: No CODE STATUS:: Full Code INSURANCE COVERAGE / FINANCIAL ISSUES:: BC/BS. Medicare CURRENT HOME/COMMUNITY SERVICES/EQUIPMENT:: No current services or equipment. PRIMARY CARE PHYSICIAN:: Mara Pantoja MD. POTENTIAL DISCHARGE NEEDS:: Follow up appointments. AD completion. PATIENT/FAMILY EDUCATION NEEDS:: Review of discharge instructions; discuss Ask Me Three. ANTICIPATED BARRIERS TO DISCHARGE:: None identified at this time. TRANSPORTATION:: Via private vehicle with her , Seymour. PLAN:: Per MD, plan for EGD, Colonoscopy during this admission may change due to ongoing fever; Alayna remains on IV ABX at this time. Per MD; colonoscopy EGD once afebrile for 24 hours to do bowel prep, may plan this is outpatient. CM will continue to monitor clinical progress and discharge plan accordingly. Alayna will likely return home with no additional services anticipated at this time. She will transport home via private vehicle with her , Seymour.
[2018-03-22] MEDS: Metoprolol 12.5 MG TAB PO ×2 (10:01→19:34)
[2018-03-22] MEDS: Omeprazole 20 MG CAPCR PO (10:01)
[2018-03-22] MEDS: Potassium Chloride 10 MEQ TABCR PO (10:02)
--- NOTE | 2018-03-22 10:11 | INITIAL_ITS ---
Care Management Initial Assess REASON FOR HOSPITALIZATION:: Pyelonephritis PAST MEDICAL HISTORY/PAST SURGICAL HISTORY:: COPD, DM type 2, Essential Hypertension, GERD, Cuttate psoriasis, hiatal hernia, histoplasmosis retinitis, hypertension, lichen sclerosus et atrophicus, non-alcoholic fatty liver disease, unspecified hyperlipidemia, premature menopause, tubular adenoma, appendectomy, biopsy of breast, colonoscopy, endoscopy. PREVIOUS FUNCTIONAL STATUS/SOCIAL/FAMILY SUPPORTS:: Alayna resides in [facility] with her , Seymour. She reports her 36 year old son also recently moved back in with them. The couple has two other sons; one in the [place] the [facility] and one resides in [place]. Alayna also reports she has two grandchildren; a granddaughter and grandson and two step grandchildren. Alayna and Seymour enjoy biking, reading, walking and golfing. They report being an active, family oriented couple. CURRENT FUNCTIONAL STATUS:: Alayna was lying in bed when CM met with her. She reported no new changes since her last admission, she is pleasant in inteaction. ADVANCE DIRECTIVES:: Alayna reports plans to complete document with her . Has patient been provided with information about the portal?: Yes Did the patient sign up for the portal?: No CODE STATUS:: Full Code INSURANCE COVERAGE / FINANCIAL ISSUES:: BC/BS. Medicare CURRENT HOME/COMMUNITY SERVICES/EQUIPMENT:: No current services or equipment. PRIMARY CARE PHYSICIAN:: Mara Pantoja MD. POTENTIAL DISCHARGE NEEDS:: Follow up appointments. AD completion. PATIENT/FAMILY EDUCATION NEEDS:: Review of discharge instructions; discuss Ask Me Three. ANTICIPATED BARRIERS TO DISCHARGE:: None identified at this time. TRANSPORTATION:: Via private vehicle with her , Seymour. PLAN:: Per MD, plan for EGD, Colonoscopy during this admission may change due to ongoing fever; Alayna remains on IV ABX at this time. Per MD; colonoscopy EGD once afebrile for 24 hours to do bowel prep, may plan this is outpatient. CM will continue to monitor clinical progress and discharge plan accordingly. Alayna will likely return home with no additional services anticipated at this time. She will transport home via private vehicle with her , Seymour.
[2018-03-22] MEDS: Enoxaparin 40 MG/0.4 ML SYR SC (10:19)
[2018-03-22 11:31] LABS: ALT 27 U/L (12-78); Bilirubin, Total 2.2 mg/dL (0.2-1.0); Magnesium 2.2 mg/dL (1.8-2.4)
[2018-03-22] MEDS: Insulin Aspart 300 UNITS/3 ML PEN SC (11:54)
--- NOTE | 2018-03-22 12:22 | PGE_ITS ---
Date of Service Date of service: 03/22/18 Time of Service: 08:00 Assessment and Plan (1) DERRELL (acute kidney injury): Current visit: Yes Status: Acute Responding to fluid, creatinine normalized, magnesium and potassium repleted. Renal ultrasound shows no hydronephrosis. (2) Fever and chills: Current visit: Yes Status: Acute Continued fevers overnight, but overall trend is down. We will continue antibiotics, cooling blanket if needed (3) Anemia: Current visit: Yes Status: Acute Hemoglobin 7.9 this morning with appropriate response from transfusion, remains hemodynamically stable. Continue to trend out H&H's. We will continue prophylactic Lovenox has no evidence of active bleeding. Plan colonoscopy EGD once afebrile for 24 hours to do bowel prep, may plan this is outpatient. Qualifiers: Anemia type: unspecified type Iron deficiency anemia type: Vitamin B12 deficiency anemia type: Folate deficiency anemia type: Bone marrow failure anemia type: Hemolytic anemia type: Other causes of anemia: Chronic kidney disease stage: Qualified Code(s): D64.9 - Anemia, unspecified (4) Pyelonephritis, acute: Current visit: Yes Status: Acute Continued fevers overnight we will continue IV antibiotics will change to regular dosing of Zosyn preliminary culture shows gram-negative rods, and gram negative cocci mixed. Subjective Patient reports: no new complaints, feels better, pain is less, voiding w/o difficulty, bowel movement and fever; denies nausea and vomiting Exam Chest Chest: normal inspection of the chest Resp Effort & Inspection: normal respiratory effort Auscultation: clear to auscultation bilaterally Cardio Jugular venous pressure: no JVD Rate: regular rate Rhythm: regular rhythm Heart Sounds: S1 normal and S2 normal GI Inspection: non-distended Palpation: no guarding and nontender General: CVA tenderness on the right Objective Objective Clinical Data: Vital Signs Temperature 40.4 C H 03/22/18 11:46 Temperature Source Tympanic 03/22/18 07:20 Pulse 38 L 03/22/18 07:20 Pulse Rhythm Regular 03/22/18 08:35 Respiratory Rate 18 03/22/18 07:20 Respiratory Effort Non-Labored 03/22/18 08:35 Respiratory Depth Normal 03/22/18 08:35 Respiratory Pattern Normal 03/22/18 08:35 Blood Pressure 114/71 03/22/18 07:20 Pulse Oximetry 97 03/22/18 07:20 Oxygen Delivery Method Room Air 03/22/18 07:20 Oxygen Flow Rate 0 03/22/18 07:20 Pain Level 0 03/22/18 07:20 Comment 03/22/18 06:02 Intake & Output 03/21/18 03/22/18 03/22/18 18:59 06:59 18:59 Intake Total 3627.333 / 3627.333 1050 / 1050 Balance 3627.333 / 3627.333 1050 / 1050 Weight 66.3 kg Intake: IV 2448.333 / 2448.333 1050 / 1050 Oral 480 / 480 Blood Product 699 / 699 Rbc Leuko Reduced Unit 350 / 350 [id number] Rbc Leuko Reduced Unit 349 / 349 [id number] Other: Urine Color Yellow Urine Appearance Clear Urine Odor None Comment Void x1 in the toilet. Void earlier in the night/morning per pt. report, not visualized by RN. Stool Size Moderate Stool Characteristics Soft Liquid Brown Voiding Methods Toilet Laboratory Results WBC 3.02 k/cumm (4.4-10.8) L 03/22/18 06:58 RBC 3.49 m/cumm (4.00-5.20) L 03/22/18 06:58 Hgb 7.9 g/dL (12.0-15.5) L 03/22/18 06:58 Hct 25.8 % (36.0-46.0) L 03/22/18 06:58 MCV 73.9 fL (80-95) L D 03/22/18 06:58 MCH 22.6 pg (27.0-33.0) L 03/22/18 06:58 MCHC 30.6 g/dL (32.0-36.0) L 03/22/18 06:58 RDW 22.3 % (11.7-14.6) H 03/22/18 06:58 Plt Count 123 x1000/uL (130-400) L 03/22/18 06:58 MPV 9.9 fL (8.0-11.0) 03/22/18 06:58 Immature Gran % 0.7 03/22/18 06:58 Neutrophils % 83.8 03/22/18 06:58 Lymphocytes % 9.9 03/22/18 06:58 Monocytes % 5.6 03/22/18 06:58 Eosinophils % 0.0 03/22/18 06:58 Basophils % 0.0 03/22/18 06:58 Absolute Neutrophils 2.53 k/cumm (1.2-6.7) 03/22/18 06:58 Absolute Lymphocytes 0.30 k/cumm (1.2-3.4) L 03/22/18 06:58 Absolute Monocytes 0.17 k/cumm (0.11-0.7) 03/22/18 06:58 Absolute Eosinophils 0.00 k/cumm (0.0-0.7) 03/22/18 06:58 Absolute Basophils 0.00 k/cumm (0.0-0.2) 03/22/18 06:58 Nucleated RBCs 1 /100WBC 03/21/18 14:27 Differential Comment Diff reviewed 03/22/18 06:58 RBC Morphology See below 03/22/18 06:58 Polychromasia Present 03/22/18 06:58 Hypochromasia 3+ 03/21/18 14:27 Poikilocytosis 2+ 03/22/18 06:58 Anisocytosis 3+ 03/22/18 06:58 Microcytosis 3+ 03/22/18 06:58 ESR 60 MM/HR (0-30) H 03/21/18 14:27 Sodium 137 mmol/L (136-145) 03/22/18 06:58 Potassium 3.1 mmol/L (3.5-5.1) L 03/22/18 06:58 Chloride 100 mmol/L (98-107) 03/22/18 06:58 Carbon Dioxide 28.4 mmol/L (21.0-32.0) 03/22/18 06:58 Anion Gap 8.6 mmol/L (3-11) 03/22/18 06:58 BUN 15 mg/dL (7-18) 03/22/18 06:58 Creatinine 0.96 mg/dL (0.55-1.02) 03/22/18 06:58 Estimated GFR/1.73 m2 58.15 (mL/min/1.73m2) 03/22/18 06:58 Glucose 110 mg/dL (70-100) H 03/22/18 06:58 Lactate 1.8 mmol/L (0.6-1.4) H 03/22/18 08:43 Calcium 7.9 mg/dL (8.5-10.1) L 03/22/18 06:58 Magnesium 2.2 mg/dL (1.8-2.4) 03/22/18 08:43 Total Bilirubin 2.2 mg/dL (0.2-1.0) H 03/22/18 08:43 AST 40 U/L (15-37) H 03/21/18 14:27 ALT 27 U/L (12-78) 03/22/18 08:43 Alkaline Phosphatase 64 U/L (46-116) 03/21/18 14:27 C-Reactive Protein 3.35 mg/dL (0.0-0.3) H 03/21/18 14:27 Total Protein 7.2 g/dL (6.4-8.2) 03/21/18 14:27 Albumin 3.4 g/dL (3.4-5.0) 03/21/18 14:27 Urine Color Jil (Yellow) 03/21/18 15:25 Urine Clarity Clear 03/21/18 15:25 Urine pH 5.5 (5-8) 03/21/18 15:25 Ur Specific [place] 1.025 (1.005-1.025) 03/21/18 15:25 Urine Protein 30 mg/dL (Negative) H 03/21/18 15:25 Urine Ketones 15 mg/dL (Negative) H 03/21/18 15:25 Urine Blood Negative (Negative) 03/21/18 15:25 Urine Nitrite Positive (Negative) H 03/21/18 15:25 Urine Bilirubin Small (Negative) H 03/21/18 15:25 Urine Urobilinogen 0.2 EU/dL (Up TO 0.2) 03/21/18 15:25 Ur Leukocyte Esterase Negative (Negative) 03/21/18 15:25 Urine RBC Not Applicable 03/21/18 15:25 Urine WBC HPF (0-5) 03/21/18 15:25 Ur Epithelial Cells Not Applicable 03/21/18 15:25 Urine Crystals Not Applicable 03/21/18 15:25 Urine Bacteria Packed HPF (Negative) 03/21/18 15:25 Urine Mucus Not Applicable 03/21/18 15:25 Ur Culture Indicated? Yes 03/21/18 15:25 Urine Glucose Negative mg/dL (Negative) 03/21/18 15:25 Patient ABO/Rh A Positive 03/21/18 14:27 Antibody Screen Negative 03/21/18 14:27 Crossmatch See Detail 03/21/18 14:27 US:US renal SYMPTOM/DIAGNOSIS: PYURIA, ? HYDRONEPHROSIS RENAL ULTRASOUND: Routine examination was performed. The right kidney measures 11.4 cm. long. The left kidney measures 11 cm. long. No renal masses, calculi or obstruction is identified. There is normal and symmetric blood flow to the kidneys. The urinary bladder was non distended and could not be adequately evaluated sonographically. Incidental note is made of enlarged spleen measuring 17 cm. The liver is enlarged measuring 22 cm. There does appear to be increased echogenicity of the liver diffusely suggesting hepatic steatosis. IMPRESSION: 1. No evidence of hydronephrosis. 2. Hepatosplenomegaly with findings suggestive of hepatic steatosis.
[2018-03-22 14:07] LABS: Ferritin 34 ng/mL (8-388)
--- NOTE | 2018-03-22 15:24 | CHAPLAIN ---
I had a short visit with Alayna who was trying to rest. I will try another visit at another time.
[2018-03-22 16:23] LABS: HCT 26.3 % (36.0-46.0)
[2018-03-22 16:29] LABS: Potassium 3.6 mmol/L (3.5-5.1)
[2018-03-22 16:53] LABS: Iron 29 ug/dL (50-175); Total Iron Binding Capacity 323 ug/dL (250-450); Transferrin Sat 9 % (15-50)
--- NOTE | 2018-03-22 17:20 | PHARADMIT ---
Addendum entered by Kevon Sanchez III 03/29/18 15:14: Pharmacy Note Subjective MD still awaiting viral studies<> Viral (tick born Vs Malignancy) Objective VS-OK K+3.6 Mag-1.6 Small BM Assessment Vanco trough 27.4 (dose adjusted and retimed by [facility]), Mrapenem continues Plan MD notes, if ParvoVirus (IV ABX parth dc and patient should recover in time. If not patient will be transferred to [facility] Original Note: Addendum entered by Kevon Sanchez III 03/28/18 14:23: Pharmacy Note Subjective MD suspects Parvovirus and is awaiting for results of viral studies, (send out). Fever (38.4) last night, afebrile since Objective VS-OK K+3.5 Mag-1.6 H&H-8.7/18.1 Had BM Assessment IV ABX continue for now, Vancomycin trough ordered for tomorrow if continues Plan watch for viral study results Original Note: Addendum entered by Joleen Zayas 03/27/18 16:30: Pharmacy Note Subjective febrile last night per morning report Objective VS-okay h/h-8.9/29.9(up) alkphos-128(up) Assessment vanco trough came back high at 24.2, held dose for 4 hours and adjusted to 1000 mg Q10H to target a trough of 15.3 doxycycline ordered to cover for possible tick-borne cause spironolactone ordered daily starting today, potassium discontinued Plan order vanco dose when needed; watch for the results of viral and tick studies Original Note: Addendum entered by Joleen Zayas 03/26/18 16:12: Pharmacy Note Subjective pt had transfusion yesterday; she continues to spike fevers daily per morning report Objective BP-143/75 Tmax-39.9 overnight other VS okay K+3.2 h/h-8.7/28.8 plt-120 wbc-2.28(up) Assessment meropenem and vanco continue (day4) nadolol started today; PO potassium given today vanco dose retimed last night, so trough moved until tomorrow morning @1100 Plan HIDA scan today, vanco trough tomorrow adjust dose as necessary Original Note: Addendum entered by Kevon Sanchez III 03/23/18 14:26: Pharmacy Note Subjective Hospitalist has taken over care of patient. Objective Tmax-38.2C VS-OK Plts- 98 WBC-1.54 ANC-1.28 (down) K+3.4 H&H-7.7/25.4 BM today. Assessment Lovenox & Zosyn dc'd (lowered Platelets ?) ABX changed to Vancomycin & Meropenem IV fluids increased. Plan No MD note written today. Original Note: Admission Pharmacy Clinical Review PYELONEPHRITIS Code Status Full Code Current Weight 66.3 kg Renally Cleared and Narrow Therapeutic Index Meds CRCL ~52ML/MIN QTc Value / Action Taken 452 BP Control, Fever 179/70 TEMP 39.3 Electrolytes reviewed OK TODAY DVT Prophylaxis ENOXAPARIN Opiate Usage / Scheduled Bowel Regimen Ordered NO/NO Plt/SCr for Heparin / Enoxaparin 123/0.96 INR for Warfarin NA H/H stable, WBC/Bands 8.0/26.3 WBC 3.02 Antibiotic appropriateness PIP/TAZO Cultures and Sensitivities [facility] Surgical ABX d/c within 24 hr NA DM control / Insulin Dosing INSULIN ASPART AND GLARGINE ,FS 132 Heart Failure (Check EF%) (MOLLY's, B-Block, Diuretics) IV to PO Switch Home Meds Reviewed OK Home Meds Not Ordered clotrimazole-betamethasone 1 marky TOPICAL PRN #1 tube 12/03/14 aspirin [Aspirin Low-Strength] 81 mg PO DAILY tab-cap 03/06/15 clobetasol 1 marky TOPICAL HS #1 tube 03/06/15 [History Confirmed 03/21/18] triamcinolone acetonide 15 gm TOPICAL DAILY script 03/24/17 hydrochlorothiazide 12.5 mg PO DAILY #90 tab-cap 07/14/17 glimepiride 4 mg PO DAILY #90 tab-cap 08/29/17 [Rx Confirmed 03/21/18] losartan 100 mg PO DAILY #90 tab-cap 08/29/17 [Rx Confirmed 03/21/18] metformin 2 tab PO BID #360 tab-cap 08/29/17 [Rx Confirmed 03/21/18] pravastatin 10 mg PO DAILY #90 tab-cap 08/29/17 [Rx Confirmed 03/21/18] lorazepam 0.5 mg tablet 0.5 mg SL TID PRN #10 tab 02/20/18 liraglutide [Victoza 3-Melquiades] 1.6 mg SUBCUT DAILY 03/21/18 Comments
[2018-03-22] MEDS: Ibuprofen 400 MG TAB PO (17:41)
[2018-03-22] MEDS: Potassium Chloride 10 MEQ CAPCR 20 MEQ PO (19:33)
[2018-03-22] MEDS: PIPERACILLIN/TAZO 4.5 GM in Normal Saline 100 ML IVPB (22:25)
[2018-03-22] MEDS: Insulin Glargine 300 UNITS/3 ML PEN 30 UNITS SC (22:26)
[2018-03-23] VITALS (14 sets, daily range): BP systolic 91–170; BP diastolic 55–85; PULSE 64–117; RESP 18–38; TEMP 36.5–39.9; O2SAT 94–99
[2018-03-23] MEDS: ACETAMINOPHEN 1,000 MG/100 ML BTL 400 MG IVPB ×3 (03:56→20:55)
[2018-03-23] MEDS: PIPERACILLIN/TAZO 4.5 GM in Normal Saline 100 ML IVPB (05:38)
[2018-03-23 07:17] LABS: Lactate-non-spesis 1.4 mmol/L (0.6-1.4)
[2018-03-23 07:35] LABS: Anion Gap 8.5 mmol/L (3-11); BUN 14 mg/dL (7-18); Bilirubin, Direct 1.28 mg/dL (0.00-0.20); Bilirubin, Total 1.8 mg/dL (0.2-1.0); CO2 26.5 mmol/L (21.0-32.0); CREATININE 0.94 mg/dL (0.55-1.02); Calcium 7.9 mg/dL (8.5-10.1); Chloride 103 mmol/L (98-107); Creatine Kinase 64 U/L (26-192); Estimated GFR 59.58 (mL/min/1.73m2); Glucose 105 mg/dL (70-100); Magnesium 1.8 mg/dL (1.8-2.4); Potassium 3.4 mmol/L (3.5-5.1); Sodium 138 mmol/L (136-145)
[2018-03-23 08:17] LABS: White Blood Cell Count 1.54 k/cumm (4.4-10.8)
[2018-03-23] MEDS: Enoxaparin 40 MG/0.4 ML SYR SC (08:17)
[2018-03-23 08:18] LABS: HCT 23.5 % (36.0-46.0); HGB 7.3 g/dL (12.0-15.5); Mean Corp. HGB Concentration 31.1 g/dL (32.0-36.0); Mean Corpuscular Hemoglobin 23.1 pg (27.0-33.0); Mean Corpuscular Volume 74.4 fL (80-95); Mean Platelet Volume 10.2 fL (8.0-11.0); RBC 3.16 m/cumm (4.00-5.20); RBC Distribution Width 22.6 % (11.7-14.6)
[2018-03-23] MEDS: Metoprolol 12.5 MG TAB PO ×2 (08:18→20:55)
[2018-03-23] MEDS: Potassium Chloride 10 MEQ CAPCR 20 MEQ PO ×2 (08:18→20:55)
[2018-03-23] MEDS: Omeprazole 20 MG CAPCR PO (08:18)
[2018-03-23 08:19] LABS: Absolute Lymphocyte Count 0.23 k/cumm (1.2-3.4); Absolute Monocyte Count 0.09 k/cumm (0.11-0.7); Anisocytosis 3+; Diff Comment Manual Differential; Hypochromasia 1+; Microcytosis 1+; Polychromasia Present
[2018-03-23 08:21] LABS: Poikilocytes 1+
[2018-03-23 08:23] LABS: Platelet Count 98 x1000/uL (130-400)
[2018-03-23] MEDS: Magnesium Oxide 400 MG TAB PO (10:44)
[2018-03-23] MEDS: Potassium Chloride 20 MEQ TABCR 40 MEQ PO (10:44)
[2018-03-23] MEDS: Normal Saline Flush 10 ML SYR IVP ×3 (10:45→21:00)
[2018-03-23] MEDS: Normal Saline 1,000 ML 200 ML IV ×3 (10:55→23:19)
[2018-03-23] MEDS: VANCOMYCIN 1,000 MG in Normal Saline 250 ML 250 MG IV ×2 (11:15→22:59)
--- NOTE | 2018-03-23 11:47 | PDOC.CMPRO ---
Care Management Progress Note S/O: Alayna has been febrile, per MD her IV ABX will change today and her IV Fluids will increase; she will now be primarily a medical patient under hospitalist and Dr. Joseph will follow as he reports she will likely follow up as an outpatient at this time. A: 67 year old female admitted to [facility] 03/21/17 for Pyelonephritis P: Alayna remains on telemetry, IVF and IV ABX at this time. CM will continue and monitor clinical status for discharge planning considerations. Anticipate Alayna will return home with no additional services at this time and will have outpatient follow up with surgical services of endoscopy colonoscopy.
[2018-03-23] MEDS: Sucralfate 1 GM TAB PO ×3 (12:02→21:46)
[2018-03-23] MEDS: Pantoprazole 40 MG VIAL IVP ×2 (12:03→20:55)
[2018-03-23] MEDS: Insulin Aspart 300 UNITS/3 ML PEN SC ×2 (12:04→18:21)
[2018-03-23 12:07] LABS: HCT 25.4 % (36.0-46.0); HGB 7.7 g/dL (12.0-15.5)
--- NOTE | 2018-03-23 14:13 | CMPROGNOTE_ITS ---
Care Management Progress Note S/O: Alayna has been febrile, per MD her IV ABX will change today and her IV Fluids will increase; she will now be primarily a medical patient under hospitalist and Dr. Joseph will follow as he reports she will likely follow up as an outpatient at this time. A: 67 year old female admitted to [facility] 03/21/17 for Pyelonephritis P: Alayna remains on telemetry, IVF and IV ABX at this time. CM will continue and monitor clinical status for discharge planning considerations. Anticipate Alayna will return home with no additional services at this time and will have outpatient follow up with surgical services of endoscopy colonoscopy.
--- NOTE | 2018-03-23 20:00 | W.PM.PROGNOT ---
Date of Service Date of service: 03/23/18 Time of Service: 20:19 Assessment and Plan (1) Sepsis: Current visit: Yes Status: Acute Evidence of tachycardia, hypotension, fever, elevated Lactate, and low WBC, with urinary source. Currently with worsening WBC and development of pancytopenia with bandemia. Maintained on Zosyn - In the presence of sepsis, will benefit from initial coverage to include ESBL and MRSA for likely complicated UTI. Initiate Vancomycin and Meropenem while awaiting blood and urine cultures. Renal Ultrasound without evidence of abnormalities. Increase IVF rate secondary to hypotension. Monitor closely with low threshold for ICU if condition deteriorates. Of note, culture data reviewed in detail - patient with Urinary Cultures growing an essentially pansensitive E.Coli on March, June, and July of 2013, as well as October of 2015. (2) Anemia: Current visit: Yes Status: Acute Evidence of heme + stool and significantly low hemoglobin. History of GERD reported, with recent worsening symptoms despite oral PPI therapy. Maintain on BID IV PPI and add sucralfate, and plan on endoscopy when stable vs. outpatient EGD/Colonoscopy if patient stabilizes. Continue to trend H/H. Qualifiers: Anemia type: unspecified type Bone marrow failure anemia type: Chronic kidney disease stage: Folate deficiency anemia type: Hemolytic anemia type: Iron deficiency anemia type: Other causes of anemia: Vitamin B12 deficiency anemia type: Qualified Code(s): D64.9 - Anemia, unspecified (3) Fever and chills: Current visit: Yes Status: Acute On basis of UTI with sepsis as above. (4) DERRELL (acute kidney injury): Current visit: Yes Status: Acute Appears resolved with hydration. Renal ultrasound normal. (5) Supraventricular tachycardia, paroxysmal: Current visit: No Status: Chronic History of Paroxysmal SVT - currently maintained on telemetry. BB on hold due to hypotension - would reinitiate as soon as able. (6) Diabetes mellitus type 2, controlled, without complications: Current visit: No Status: Chronic Holding Metformin, Glimepiride, and Liraglutide, but on basal insulin. Continue sliding scale coverage, ADA diet. (7) COPD (chronic obstructive pulmonary disease): Current visit: No Status: Acute Appears quiescent. Duonebs prn. (8) Essential hypertension: Current visit: No Status: Chronic Holding ARB, BB, and thiazide in setting of hypotension and infection. Reinitiate when appropriate. (9) DVT prophylaxis: Current visit: Yes Status: Acute SCDs. No chemical DVT prophylaxis in setting of GI Bleed. Subjective Interval history since last seen: Patient with slight improvement in her symptoms overall, but still doesn't feel well. Reports subjective GERD that is continued and worsened recently. No overnight events reported. Patient remains febrile. Exam Narrative Exam Narrative: General: Patient appears comfortable, pale appearing, AAOX3, NAD Neck: Supple CV: Regular, nontachycardic, S1S2, No rubs, murmurs, or gallops. Pulmonary: Clear to auscultation bilaterally, no crackles, wheezing, or rhonchi Abdomen: + Bowel Sounds, soft, nondistended. Mild epigastric/RUQ/LUQ tenderness on palpation. Vascular: No lower extremity edema Psych: Normal mood and affect. Objective Objective Clinical Data: Abnormal lab results 03/23/18 03/23/18 03/23/18 Range/Units 07:07 07:07 10:55 WBC 1.54 L* D (4.4-10.8) k/cumm RBC 3.16 L (4.00-5.20) m/cumm Hgb 7.3 L 7.7 L (12.0-15.5) g/dL Hct 23.5 L 25.4 L (36.0-46.0) % MCV 74.4 L (80-95) fL MCH 23.1 L (27.0-33.0) pg MCHC 31.1 L (32.0-36.0) g/dL RDW 22.6 H (11.7-14.6) % Plt Count 98 L (130-400) x1000/uL Absolute Lymphocytes 0.23 L (1.2-3.4) k/cumm Absolute Monocytes 0.09 L (0.11-0.7) k/cumm Potassium 3.4 L (3.5-5.1) mmol/L Glucose 105 H (70-100) mg/dL Calcium 7.9 L (8.5-10.1) mg/dL Total Bilirubin 1.8 H (0.2-1.0) mg/dL Conjugated Bilirubin 1.28 H (0.00-0.20) mg/dL Vital Signs Temperature 37.9 C H 03/23/18 16:41 Temperature Source Tympanic 03/23/18 16:41 Pulse 86 03/23/18 16:41 Pulse Rhythm Regular 03/23/18 16:05 Respiratory Rate 18 03/23/18 16:41 Respiratory Effort 03/23/18 16:05 Respiratory Depth Normal 03/23/18 16:05 Respiratory Pattern Normal 03/23/18 16:05 Blood Pressure 113/55 L 03/23/18 16:41 Pulse Oximetry 97 03/23/18 16:41 Oxygen Delivery Method Room Air 03/23/18 16:41 Oxygen Flow Rate 0 03/23/18 16:41 Pain Level 0 03/22/18 11:45 Comment 03/23/18 13:47 Intake & Output 03/22/18 03/23/18 03/23/18 23:59 11:59 23:59 Intake Total 2750 / 7278.333 1665 / 2355 690 / 2355 Output Total 400 / 1425 625 / 1025 400 / 1025 Balance 2350 / 5853.333 1040 / 1330 290 / 1330 Intake: IV 2300 / 5598.333 1300 / 1750 450 / 1750 Oral 450 / 1680 365 / 605 240 / 605 Output: Urine 400 / 1425 375 / 500 125 / 500 Stool 250 / 525 275 / 525 Other: Urine Color Straw Yellow Yellow Urine Appearance Clear Clear Clear Urine Odor Normal Normal Normal Stool Occult Blood Negative Negative Stool Size Small Stool Characteristics Liquid Liquid Liquid Brown Brown Green Voiding Methods Toilet Toilet Laboratory Results WBC 1.54 k/cumm (4.4-10.8) L* D 03/23/18 07:07 RBC 3.16 m/cumm (4.00-5.20) L 03/23/18 07:07 Hgb 7.7 g/dL (12.0-15.5) L 03/23/18 10:55 Hct 25.4 % (36.0-46.0) L 03/23/18 10:55 MCV 74.4 fL (80-95) L 03/23/18 07:07 MCH 23.1 pg (27.0-33.0) L 03/23/18 07:07 MCHC 31.1 g/dL (32.0-36.0) L 03/23/18 07:07 RDW 22.6 % (11.7-14.6) H 03/23/18 07:07 Plt Count 98 x1000/uL (130-400) L 03/23/18 07:07 MPV 10.2 fL (8.0-11.0) 03/23/18 07:07 Immature Gran % See Differential 03/23/18 07:07 Neutrophils % 71.0 03/23/18 07:07 Lymphocytes % 15.0 03/23/18 07:07 Monocytes % 6.0 03/23/18 07:07 Eosinophils % 0.0 03/23/18 07:07 Basophils % 0.0 03/23/18 07:07 Absolute Neutrophils 1.20 k/cumm (1.2-6.7) 03/23/18 07:07 Band Neutrophils 7.0 % 03/23/18 07:07 Absolute Lymphocytes 0.23 k/cumm (1.2-3.4) L 03/23/18 07:07 Absolute Monocytes 0.09 k/cumm (0.11-0.7) L 03/23/18 07:07 Absolute Eosinophils 0.00 k/cumm (0.0-0.7) 03/23/18 07:07 Absolute Basophils 0.00 k/cumm (0.0-0.2) 03/23/18 07:07 Metamyelocytes 1.0 % 03/23/18 07:07 Nucleated RBCs 1 /100WBC 03/21/18 14:27 Differential Comment Manual differential 03/23/18 07:07 RBC Morphology See below 03/23/18 07:07 Polychromasia Present 03/23/18 07:07 Hypochromasia 1+ 03/23/18 07:07 Poikilocytosis 1+ 03/23/18 07:07 Anisocytosis 3+ 03/23/18 07:07 Microcytosis 1+ 03/23/18 07:07 ESR 60 MM/HR (0-30) H 03/21/18 14:27 Sodium 138 mmol/L (136-145) 03/23/18 07:07 Potassium 3.4 mmol/L (3.5-5.1) L 03/23/18 07:07 Chloride 103 mmol/L (98-107) 03/23/18 07:07 Carbon Dioxide 26.5 mmol/L (21.0-32.0) 03/23/18 07:07 Anion Gap 8.5 mmol/L (3-11) 03/23/18 07:07 BUN 14 mg/dL (7-18) 03/23/18 07:07 Creatinine 0.94 mg/dL (0.55-1.02) 03/23/18 07:07 Estimated GFR/1.73 m2 59.58 (mL/min/1.73m2) 03/23/18 07:07 Glucose 105 mg/dL (70-100) H 03/23/18 07:07 Lactate 1.4 mmol/L (0.6-1.4) 03/23/18 07:07 Calcium 7.9 mg/dL (8.5-10.1) L 03/23/18 07:07 Magnesium 1.8 mg/dL (1.8-2.4) 03/23/18 07:07 Iron 29 ug/dL (50-175) L 03/22/18 16:10 TIBC 323 ug/dL (250-450) 03/22/18 16:10 Transferrin Cancelled 03/22/18 08:25 Transferrin % Sat 9 % (15-50) L 03/22/18 16:10 Ferritin 34 ng/mL (8-388) 03/22/18 06:58 Total Bilirubin 1.8 mg/dL (0.2-1.0) H 03/23/18 07:07 Conjugated Bilirubin 1.28 mg/dL (0.00-0.20) H 03/23/18 07:07 AST 40 U/L (15-37) H 03/21/18 14:27 ALT 27 U/L (12-78) 03/22/18 08:43 Alkaline Phosphatase 64 U/L (46-116) 03/21/18 14:27 Creatine Kinase 64 U/L (26-192) 03/23/18 07:07 C-Reactive Protein 3.35 mg/dL (0.0-0.3) H 03/21/18 14:27 Total Protein 7.2 g/dL (6.4-8.2) 03/21/18 14:27 Albumin 3.4 g/dL (3.4-5.0) 03/21/18 14:27 Urine Color Jil (Yellow) 03/21/18 15:25 Urine Clarity Clear 03/21/18 15:25 Urine pH 5.5 (5-8) 03/21/18 15:25 Ur Specific [place] 1.025 (1.005-1.025) 03/21/18 15:25 Urine Protein 30 mg/dL (Negative) H 03/21/18 15:25 Urine Ketones 15 mg/dL (Negative) H 03/21/18 15:25 Urine Blood Negative (Negative) 03/21/18 15:25 Urine Nitrite Positive (Negative) H 03/21/18 15:25 Urine Bilirubin Small (Negative) H 03/21/18 15:25 Urine Urobilinogen 0.2 EU/dL (Up TO 0.2) 03/21/18 15:25 Ur Leukocyte Esterase Negative (Negative) 03/21/18 15:25 Urine RBC Not Applicable 03/21/18 15:25 Urine WBC HPF (0-5) 03/21/18 15:25 Ur Epithelial Cells Not Applicable 03/21/18 15:25 Urine Crystals Not Applicable 03/21/18 15:25 Urine Bacteria Packed HPF (Negative) 03/21/18 15:25 Urine Mucus Not Applicable 03/21/18 15:25 Ur Culture Indicated? Yes 03/21/18 15:25 Urine Glucose Negative mg/dL (Negative) 03/21/18 15:25 Path Cons Comment 03/21/18 14:27 Patient ABO/Rh A Positive 03/21/18 14:27 Antibody Screen Negative 03/21/18 14:27 Crossmatch See Detail 03/21/18 14:27
[2018-03-23] MEDS: Pravastatin 20 MG TAB 10 MG PO (21:46)
--- NOTE | 2018-03-23 23:37 | NUR.NOTE ---
Nursing Note: 2129- pt has eating since lunch ,fingerstick 135 at hs 2129 - pt on glargine insulin 30 units , coordinator Jason Licona informed . 2314 -informed Sana Hudson coordinator r/t insulin also
[2018-03-24] VITALS (13 sets, daily range): BP systolic 113–162; BP diastolic 63–84; PULSE 78–95; RESP 20–40; TEMP 36.8–39.6; O2SAT 95–99
[2018-03-24] MEDS: ACETAMINOPHEN 1,000 MG/100 ML BTL 400 MG IVPB ×3 (04:10→20:37)
--- NOTE | 2018-03-24 04:55 | DI.RAD_ITS ---
SYMPTOM/DIAGNOSIS: SOB PORTABLE AP CHEST: Comparison is made with 03/21/08. The heart is normal in size. The lungs are clear. The mediastinal structures and pleura appear intact. CONCLUSION: Normal chest.
[2018-03-24 05:01] LABS: Abs Immature Grans 0.01 k/cumm (0.0-0.09); HCT 25.8 % (36.0-46.0); HGB 8.1 g/dL (12.0-15.5); Mean Corp. HGB Concentration 31.4 g/dL (32.0-36.0); Mean Corpuscular Hemoglobin 23.5 pg (27.0-33.0); Mean Corpuscular Volume 74.8 fL (80-95); Mean Platelet Volume 10.5 fL (8.0-11.0); Platelet Count 91 x1000/uL (130-400); RBC 3.45 m/cumm (4.00-5.20)
[2018-03-24 05:06] LABS: White Blood Cell Count 1.75 k/cumm (4.4-10.8)
[2018-03-24 05:14] LABS: Anion Gap 12.7 mmol/L (3-11); BUN 5 mg/dL (7-18); Bilirubin, Total 1.7 mg/dL (0.2-1.0); CO2 21.3 mmol/L (21.0-32.0); CREATININE 0.72 mg/dL (0.55-1.02); Calcium 7.4 mg/dL (8.5-10.1); Chloride 104 mmol/L (98-107); Glucose 125 mg/dL (70-100); Magnesium 1.5 mg/dL (1.8-2.4); Potassium 3.3 mmol/L (3.5-5.1); Sodium 138 mmol/L (136-145)
[2018-03-24] MEDS: Normal Saline 1,000 ML 200 ML IV (05:35)
[2018-03-24] MEDS: Albuterol 2.5 MG/3 ML INH SOLN VIAL UPD (05:52)
[2018-03-24 05:53] LABS: Absolute Basophil Count 0.02 k/cumm (0.0-0.2); Absolute Lymphocyte Count 0.32 k/cumm (1.2-3.4); Absolute Monocyte Count 0.14 k/cumm (0.11-0.7); Absolute Neutrophil Count 1.28 k/cumm (1.2-6.7); Anisocytosis 2+
[2018-03-24 05:54] LABS: Hypochromasia 1+; Microcytosis 1+; Poikilocytes 1+; Polychromasia Present
[2018-03-24 05:55] LABS: Diff Comment Manual Differential
--- NOTE | 2018-03-24 06:07 | W.PM.PROGNOT ---
Date of Service Date of service: 03/24/18 Time of Service: 06:07 Assessment and Plan (1) SOB (shortness of breath): Current visit: Yes Status: Acute Shortness of breath, etiology unclear at present. Sudden onset raises concern for PE though patient has been on appropriate prophylaxis, there is no tachycardia or hypoxia and no findings on exam to suggest DVT. Nevertheless, if d-dimer is positive and there are no other explanations forthcoming a would probably be the best to proceed with CT angiogram the chest x-ray rules out pneumothorax and I see no signs of aspiration or other acute pneumonitis. Also, the normal EKG is reassuring, and the stable hematocrit rules out acute bleed. the history of smoking and the report of audible wheezing is noted. Patient did get a trial updraft without any effect. By exclusion, with the patient being 9 L positive, and with her also reporting improvement in her symptoms with sitting up I am inclined at this point to think this may be case of simple fluid overload will give empiric trial of diuresis and follow-up thereafter Subjective Interval history since last seen: I was called to evaluate shortness of breath. Patient reported that she was trying to get to sleep and became suddenly short of breath. There was no chest pain. She reports that it feels better if she sits up. Note that she is approximately 9 L positive over the past 3 days. Also that she has been on DVT prophylaxis. Both the nurse and the patient do report some audible expiratory wheezing though the nurse adds that the lung sounds were clear at the time. The patient does have a history of smoking but has never been on treatment for bronchospasm. On exam blood pressure 135/71, pulse 84 respirations 24-28, O2 sat is 97% on room. Lungs are clear, heart regular rate and rhythm without murmurs rubs or gallops, extremities without edema, calves nontender and Homans sign is negative bilaterally Laboratory: Chest x-ray shows no acute disease, EKG within normal limits. Hematocrit is increased slightly to 25.8, d-dimer is pending Objective Objective Clinical Data: Abnormal lab results 03/23/18 03/23/18 03/23/18 Range/Units 07:07 07:07 10:55 WBC 1.54 L* D (4.4-10.8) k/cumm RBC 3.16 L (4.00-5.20) m/cumm Hgb 7.3 L 7.7 L (12.0-15.5) g/dL Hct 23.5 L 25.4 L (36.0-46.0) % MCV 74.4 L (80-95) fL MCH 23.1 L (27.0-33.0) pg MCHC 31.1 L (32.0-36.0) g/dL RDW 22.6 H (11.7-14.6) % Plt Count 98 L (130-400) x1000/uL Absolute Lymphocytes 0.23 L (1.2-3.4) k/cumm Absolute Monocytes 0.09 L (0.11-0.7) k/cumm Potassium 3.4 L (3.5-5.1) mmol/L Anion Gap (3-11) mmol/L BUN (7-18) mg/dL Glucose 105 H (70-100) mg/dL Calcium 7.9 L (8.5-10.1) mg/dL Magnesium (1.8-2.4) mg/dL Total Bilirubin 1.8 H (0.2-1.0) mg/dL Conjugated Bilirubin 1.28 H (0.00-0.20) mg/dL 03/24/18 03/24/18 Range/Units 04:55 04:55 WBC 1.75 L* (4.4-10.8) k/cumm RBC 3.45 L (4.00-5.20) m/cumm Hgb 8.1 L (12.0-15.5) g/dL Hct 25.8 L (36.0-46.0) % MCV 74.8 L (80-95) fL MCH 23.5 L (27.0-33.0) pg MCHC 31.4 L (32.0-36.0) g/dL RDW 23.0 H (11.7-14.6) % Plt Count 91 L (130-400) x1000/uL Absolute Lymphocytes 0.32 L (1.2-3.4) k/cumm Absolute Monocytes (0.11-0.7) k/cumm Potassium 3.3 L (3.5-5.1) mmol/L Anion Gap 12.7 H (3-11) mmol/L BUN 5 L (7-18) mg/dL Glucose 125 H (70-100) mg/dL Calcium 7.4 L (8.5-10.1) mg/dL Magnesium 1.5 L (1.8-2.4) mg/dL Total Bilirubin 1.7 H (0.2-1.0) mg/dL Conjugated Bilirubin (0.00-0.20) mg/dL Vital Signs Temperature 36.8 C 03/24/18 03:40 Temperature Source Tympanic 03/24/18 03:40 Pulse 89 03/24/18 04:23 Pulse Rhythm Regular 03/23/18 23:44 Respiratory Rate 34 H 03/24/18 04:15 Respiratory Effort 03/23/18 23:44 Respiratory Depth Normal 03/23/18 16:05 Respiratory Pattern Normal 03/23/18 16:05 Blood Pressure 135/71 03/24/18 05:42 Pulse Oximetry 97 03/24/18 04:15 Oxygen Delivery Method Room Air 03/24/18 04:15 Oxygen Flow Rate 0 03/24/18 04:15 Pain Level 0 03/24/18 03:40 Comment 03/24/18 04:15 Intake & Output 03/23/18 03/23/18 03/24/18 11:59 23:59 11:59 Intake Total 1665 / 3838.333 1923.333 / 3838.333 2450.000 / 2450.000 Output Total 625 / 1025 400 / 1025 1400 / 1400 Balance 1040 / 2813.333 1523.333 / 2813.333 1050.000 / 1050.000 Intake: IV 1300 / 3233.333 1683.333 / 3233.333 2450.000 / 2450.000 Oral 365 / 605 240 / 605 Output: Urine 375 / 500 125 / 500 700 / 700 Stool 250 / 525 275 / 525 700 / 700 Other: Urine Color Yellow Yellow Yellow Urine Appearance Clear Clear Clear Urine Odor Normal Normal Normal Stool Occult Blood Negative Negative Stool Characteristics Liquid Soft Liquid Brown Liquid Brown Green Voiding Methods Diaper Toilet Incontinent Laboratory Results WBC 1.75 k/cumm (4.4-10.8) L* 03/24/18 04:55 RBC 3.45 m/cumm (4.00-5.20) L 03/24/18 04:55 Hgb 8.1 g/dL (12.0-15.5) L 03/24/18 04:55 Hct 25.8 % (36.0-46.0) L 03/24/18 04:55 MCV 74.8 fL (80-95) L 03/24/18 04:55 MCH 23.5 pg (27.0-33.0) L 03/24/18 04:55 MCHC 31.4 g/dL (32.0-36.0) L 03/24/18 04:55 RDW 23.0 % (11.7-14.6) H 03/24/18 04:55 Plt Count 91 x1000/uL (130-400) L 03/24/18 04:55 MPV 10.5 fL (8.0-11.0) 03/24/18 04:55 Immature Gran % See Differential 03/24/18 04:55 Neutrophils % 69.0 03/24/18 04:55 Lymphocytes % 18.0 03/24/18 04:55 Monocytes % 8.0 03/24/18 04:55 Eosinophils % 0.0 03/24/18 04:55 Basophils % 1.0 03/24/18 04:55 Absolute Neutrophils 1.28 k/cumm (1.2-6.7) 03/24/18 04:55 Band Neutrophils 4.0 % 03/24/18 04:55 Absolute Lymphocytes 0.32 k/cumm (1.2-3.4) L 03/24/18 04:55 Absolute Monocytes 0.14 k/cumm (0.11-0.7) 03/24/18 04:55 Absolute Eosinophils 0.00 k/cumm (0.0-0.7) 03/24/18 04:55 Absolute Basophils 0.02 k/cumm (0.0-0.2) 03/24/18 04:55 Metamyelocytes 1.0 % 03/23/18 07:07 Nucleated RBCs 1 /100WBC 03/21/18 14:27 Differential Comment Manual differential 03/24/18 04:55 RBC Morphology See below 03/24/18 04:55 Polychromasia Present 03/24/18 04:55 Hypochromasia 1+ 03/24/18 04:55 Poikilocytosis 1+ 03/24/18 04:55 Anisocytosis 2+ 03/24/18 04:55 Microcytosis 1+ 03/24/18 04:55 ESR 60 MM/HR (0-30) H 03/21/18 14:27 Sodium 138 mmol/L (136-145) 03/24/18 04:55 Potassium 3.3 mmol/L (3.5-5.1) L 03/24/18 04:55 Chloride 104 mmol/L (98-107) 03/24/18 04:55 Carbon Dioxide 21.3 mmol/L (21.0-32.0) 03/24/18 04:55 Anion Gap 12.7 mmol/L (3-11) H 03/24/18 04:55 BUN 5 mg/dL (7-18) L 03/24/18 04:55 Creatinine 0.72 mg/dL (0.55-1.02) 03/24/18 04:55 Estimated GFR/1.73 m2 >= 60.00 (mL/min/1.73m2) 03/24/18 04:55 Glucose 125 mg/dL (70-100) H 03/24/18 04:55 Lactate 1.4 mmol/L (0.6-1.4) 03/23/18 07:07 Calcium 7.4 mg/dL (8.5-10.1) L 03/24/18 04:55 Magnesium 1.5 mg/dL (1.8-2.4) L 03/24/18 04:55 Iron 29 ug/dL (50-175) L 03/22/18 16:10 TIBC 323 ug/dL (250-450) 03/22/18 16:10 Transferrin Cancelled 03/22/18 08:25 Transferrin % Sat 9 % (15-50) L 03/22/18 16:10 Ferritin 34 ng/mL (8-388) 03/22/18 06:58 Total Bilirubin 1.7 mg/dL (0.2-1.0) H 03/24/18 04:55 Conjugated Bilirubin 1.28 mg/dL (0.00-0.20) H 03/23/18 07:07 AST 40 U/L (15-37) H 03/21/18 14:27 ALT 27 U/L (12-78) 03/22/18 08:43 Alkaline Phosphatase 64 U/L (46-116) 03/21/18 14:27 Creatine Kinase 64 U/L (26-192) 03/23/18 07:07 C-Reactive Protein 3.35 mg/dL (0.0-0.3) H 03/21/18 14:27 Total Protein 7.2 g/dL (6.4-8.2) 03/21/18 14:27 Albumin 3.4 g/dL (3.4-5.0) 03/21/18 14:27 Urine Color Jil (Yellow) 03/21/18 15:25 Urine Clarity Clear 03/21/18 15:25 Urine pH 5.5 (5-8) 03/21/18 15:25 Ur Specific [place] 1.025 (1.005-1.025) 03/21/18 15:25 Urine Protein 30 mg/dL (Negative) H 03/21/18 15:25 Urine Ketones 15 mg/dL (Negative) H 03/21/18 15:25 Urine Blood Negative (Negative) 03/21/18 15:25 Urine Nitrite Positive (Negative) H 03/21/18 15:25 Urine Bilirubin Small (Negative) H 03/21/18 15:25 Urine Urobilinogen 0.2 EU/dL (Up TO 0.2) 03/21/18 15:25 Ur Leukocyte Esterase Negative (Negative) 03/21/18 15:25 Urine RBC Not Applicable 03/21/18 15:25 Urine WBC HPF (0-5) 03/21/18 15:25 Ur Epithelial Cells Not Applicable 03/21/18 15:25 Urine Crystals Not Applicable 03/21/18 15:25 Urine Bacteria Packed HPF (Negative) 03/21/18 15:25 Urine Mucus Not Applicable 03/21/18 15:25 Ur Culture Indicated? Yes 03/21/18 15:25 Urine Glucose Negative mg/dL (Negative) 03/21/18 15:25 Path Cons Comment 03/21/18 14:27 Patient ABO/Rh A Positive 03/21/18 14:27 Antibody Screen Negative 03/21/18 14:27 Crossmatch See Detail 03/21/18 14:27
[2018-03-24] MEDS: Normal Saline Flush 10 ML SYR IVP ×7 (06:29→20:38)
[2018-03-24] MEDS: Furosemide 20 MG/2 ML VIAL IVP ×2 (06:29→10:54)
[2018-03-24 06:41] LABS: D-Dimer 3176 ng/mlFEU (<500)
--- NOTE | 2018-03-24 07:27 | DI.VRAD_ITS ---
EXAM: XR Chest, 1 View EXAM DATE/TIME: 03/24/2018 4:56 AM CLINICAL HISTORY: 67 years old, female; Signs and symptoms; Shortness of breath; Patient HX: SOB, HX of copd TECHNIQUE: XR of the chest, 1 view. COMPARISON: CR XR CHEST 2V PA LATERAL 03/21/2018 2:57 PM FINDINGS: Lungs: Mild hyperinflation. No consolidation. Pleural space: Unremarkable. No pleural effusion. No pneumothorax. Heart/Mediastinum: Atherosclerotic disease. Bones/joints: Unremarkable. IMPRESSION: No acute findings. COPD. Dictated and Authenticated by: Rebecca Garcia MD. Ordering:BETSY Crisostomo MD
[2018-03-24] MEDS: Pantoprazole 40 MG VIAL IVP ×2 (08:58→20:38)
[2018-03-24] MEDS: Metoprolol 12.5 MG TAB PO ×2 (08:59→20:38)
[2018-03-24] MEDS: Sucralfate 1 GM TAB PO ×4 (08:59→21:48)
[2018-03-24] MEDS: Potassium Chloride 10 MEQ CAPCR 20 MEQ PO ×2 (08:59→20:38)
[2018-03-24] MEDS: Normal Saline 500 ML 200 ML IV (10:03)
[2018-03-24 10:07] LABS: Bilirubin Negative (Negative); Blood Negative (Negative); Clarity Clear; Glucose Negative (Negative); Ketones 15 mg/dL (Negative); Leukocyte Esterase Negative (Negative); Nitrite Negative (Negative); Specific Gravity 1.015 (1.005-1.025); Urobilinogen 0.2 EU/dL (Up TO 0.2); pH 5.5 (5-8)
[2018-03-24] MEDS: Potassium Chloride 20 MEQ TABCR 40 MEQ PO (10:18)
[2018-03-24 10:56] LABS: Mono Screening Negative (Negative)
[2018-03-24 10:57] LABS: BE -3.4 mmol/L (-3-3); HCO3 21 mmol/L (22-28); pCO2 30 mmHg (34-47); pH 7.45 (7.35-7.45); pO2 93 mmHg (83-108); sO2 99 % (94-98); tCO2 20 mmol/L (22-29)
[2018-03-24 10:58] LABS: FIO2L 2 L; Site Right Radial
--- NOTE | 2018-03-24 11:35 | DI.CT_ITS ---
SYMPTOM/DIAGNOSIS: RESPIRATORY DISTRESS, FEVER UNKNOWN ETIOLOGY, PLEURITIC CHEST AND ABD PAIN ABDOMEN AND PELVIC CT: No priors. The liver is normal in size. No hepatic mass is seen. There is a nodular surface of the liver suggesting hepatic cirrhosis. There is an enlarged portal vein but the portal and superior mesenteric veins appear patent. There is a stone seen within the gallbladder. There is pericholecystic fluid present. No biliary ductal dilatation is seen. The pancreas is unremarkable. The spleen is enlarged measuring 19 cm. The adrenal glands are unremarkable. The kidneys show normal and symmetric enhancement. No suspicious solid renal mass or obstruction is seen. The urinary bladder is intact. The reproductive organs are unremarkable. There is mild thickening of the wall of the antrum and proximal duodenum. The remainder of the bowel is unremarkable. No findings to suggest an acute appendicitis are present. There is a moderate amount of abdominal and pelvic ascites. No significant abdominal or pelvic adenopathy is present. There is atherosclerosis of the abdominal aorta but no aneurysmal dilatation. Mild edema is seen in the subcutaneous tissues. No acute osseous abnormalities are identified. IMPRESSION: 1. Nodular liver suspicious for hepatic cirrhosis. 2. Splenomegaly. 3. Moderate abdominal and pelvic ascites. 4. Cholelithiasis. No biliary ductal dilatation. 5. Pericholecystic fluid. This may be due to the ascites versus acute cholecystitis or hepatitis. Right heart failure cannot be excluded. 6. Bowel wall thickening involving the antrum and proximal duodenum. This may represent a gastroenteritis. PE CHEST CT: No priors. CT angiography was performed with multi slice acquisition and multi planar and 3D reconstruction. CT scan of the chest was performed according to the pulmonary embolus protocol. Sagittal and coronal images were also evaluated on the [employer] work station. No definite pulmonary emboli are seen. There is patient motion artifact present. There is atherosclerosis of the thoracic aorta but no aneurysmal dilatation is seen. Heart size is within normal limits. No significant pericardial effusion is seen. No findings to suggest right ventricular dysfunction are noted. No significant thoracic adenopathy is seen. Mild to moderate sized bilateral pleural effusions are seen. There is subjacent infiltrates likely reflecting atelectasis. Pneumonia cannot be excluded. The tracheobronchial tree is unremarkable. No pneumothorax is identified. Degenerative changes are seen in the spine. IMPRESSION: No definite pulmonary embolus, thoracic aortic dissection or aneurysm. Bilateral pleural effusions and subjacent infiltrates which may represent atelectasis. Pneumonia cannot be entirely excluded.
[2018-03-24] MEDS: MAGNESIUM SULFATE 4 GM/100 ML BAG IVPB (11:40)
[2018-03-24] MEDS: Omnipaque 350 MG/ML 100 ML BTL IJ (11:50)
[2018-03-24] MEDS: traMADol 50 MG TAB PO ×2 (12:06→17:58)
--- NOTE | 2018-03-24 12:06 | DI.VRAD_ITS ---
EXAM: CT Angiography Chest With Contrast EXAM DATE/TIME: 03/24/2018 10:36 AM CLINICAL HISTORY: 67 years old, female; Signs and symptoms; Shortness of breath; Patient HX: Respiratory distress, fuo, pleuritic/abd pain. ; Additional info: Best images obtained due to patient SOB, unable to hold breath for duration of breath hold for scan, repeat done to improve images. TECHNIQUE: Axial computed tomographic angiography images of the chest with intravenous contrast using CT angiography protocol. All CT scans at this facility use at least one of these dose optimization techniques: automated exposure control; mA and/or kV adjustment per patient size (includes targeted exams where dose is matched to clinical indication); or iterative reconstruction. Coronal and sagittal reformatted images were created and reviewed. MIP reconstructed images were created and reviewed. CONTRAST: 100 ml of omnipaque 350 administered intravenously. COMPARISON: CR XR PORTABLE CHEST AP 03/24/2018 4:53 AM FINDINGS: Pulmonary arteries: Normal. No pulmonary emboli. Aorta: Normal. No aortic aneurysm. No aortic dissection. Lungs: Normal. No consolidation. No masses. Pleural space: Mild bilateral pleural fluid collections. Heart: Normal. No cardiomegaly. No pericardial effusion. Lymph nodes: Unremarkable. No enlarged lymph nodes. Bones/joints: Moderate thoracic spondylosis. Soft tissues: Unremarkable. Other findings: Examination is limited secondary to motion artifact. IMPRESSION: Mild bilateral pleural fluid collections. EXAM: CT Angiography Abdomen With Contrast EXAM DATE/TIME: 03/24/2018 10:36 AM CLINICAL HISTORY: 67 years old, female; Signs and symptoms; Shortness of breath; Patient HX: Respiratory distress, fuo, pleuritic/abd pain. ; Additional info: Best images obtained due to patient SOB, unable to hold breath for duration of breath hold for scan, repeat done to improve images. TECHNIQUE: Axial computed tomographic angiography images of the abdomen with intravenous contrast material, including non-contrast images if performed. MIP and/or 3D reconstructed images were created and reviewed. All CT scans at this facility use at least one of these dose optimization techniques: automated exposure control; mA and/or kV adjustment per patient size (includes targeted exams where dose is matched to clinical indication); or iterative reconstruction. Coronal and sagittal reformatted images were created and reviewed. MIP reconstructed images were created and reviewed. COMPARISON: CR XR PORTABLE CHEST AP 03/24/2018 4:53 AM FINDINGS: Lungs: Unremarkable. No consolidation. VASCULATURE: Aorta: Calcification of the abdominal aorta and/or iliac arteries consistent with atherosclerotic vessel disease. Celiac trunk and mesenteric arteries: No occlusion or significant stenosis. Renal arteries: No occlusion or significant stenosis. Portal Venous System: 19 mm portal vein suggesting portal hypertension. ABDOMEN: Liver: Nodular liver suggesting possible cirrhosis. Gallbladder and bile ducts: Calcified gallstone in the neck of the gallbladder. Pericholecystic fluid in the region of the gallbladder consistent with right heart failure versus hepatitis versus cholecystitis. Pancreas: Normal. No ductal dilation. Spleen: Large 18.7 x 16.0 cm splenomegaly. Adrenals: Normal. No mass. Kidneys and ureters: Normal. No hydronephrosis. Stomach and bowel: Mild bowel wall thickening in the antrum is in duodenum with edema or inflammation surrounding the second portion of duodenum consistent with gastroenteritis versus portal enteropathy. Intraperitoneal space: One or more calcified pelvic phleboliths. Mild to moderate four-quadrant ascites. Bones/joints: Unremarkable. No acute fracture. No dislocation. Soft tissues: Unremarkable. Lymph nodes: Unremarkable. No enlarged lymph nodes. IMPRESSION: 1. Mild to moderate four-quadrant ascites. 2. Large 18.7 x 16.0 cm splenomegaly. 3. Nodular liver suggesting possible cirrhosis. 4. 19 mm portal vein suggesting portal hypertension. 5. Calcified gallstone in the neck of the gallbladder. 6. Pericholecystic fluid in the region of the gallbladder consistent with right heart failure versus hepatitis versus cholecystitis. 7. Mild bowel wall thickening in the antrum is in duodenum with edema or inflammation surrounding the second portion of duodenum consistent with gastroenteritis versus portal enteropathy. Dictated and Authenticated by: Herminio Nugent MD. Ordering:CHEYENNE Fsih MD
--- NOTE | 2018-03-24 12:16 | PDOC.CMPRO ---
- If Service Date Differs Date of service: 03/24/18 Time of Service: 12:16 Care Management Progress Note S/O: Alayna is lying in bed when this service writer advisor visits this morning, she is sleeping, though is easily arousable. Alayna continues on IV antibiotics at this time and also remains on telemetry monitoring. Reviewed CM role and DC plans. A: 67 year old female admitted to [facility] 03/21/17 for Pyelonephritis P: Alayna remains on telemetry, IVF and IV ABX at this time. CM will continue and monitor clinical status for discharge planning considerations. Anticipate Alayna will return home with no additional services at this time and will have outpatient follow up with surgical services of endoscopy colonoscopy.
[2018-03-24] MEDS: VANCOMYCIN 1,000 MG in Normal Saline 250 ML 250 MG IV ×2 (12:42→21:49)
[2018-03-24 12:51] LABS: ALT 29 U/L (12-78); AST 37 U/L (15-37); Albumin 2.4 g/dL (3.4-5.0); Alkaline Phosphatase 76 U/L (46-116); Bilirubin, Direct 1.08 mg/dL (0.00-0.20); Lipase 402 U/L (73-393); Total Protein 5.4 g/dL (6.4-8.2)
--- NOTE | 2018-03-24 13:08 | CMPROGNOTE_ITS ---
- If Service Date Differs Date of service: 03/24/18 Time of Service: 12:16 Care Management Progress Note S/O: Alayna is lying in bed when this verse writer visits this morning, she is sleeping, though is easily arousable. Alayna continues on IV antibiotics at this time and also remains on telemetry monitoring. Reviewed CM role and DC plans. A: 67 year old female admitted to [facility] 03/21/17 for Pyelonephritis P: Alayna remains on telemetry, IVF and IV ABX at this time. CM will continue and monitor clinical status for discharge planning considerations. Anticipate Alayna will return home with no additional services at this time and will have outpatient follow up with surgical services of endoscopy colonoscopy.
--- NOTE | 2018-03-24 14:37 | DI.US_ITS ---
SYMPTOM/DIAGNOSIS: ? ACUTE CHOLECYSTITIS, F/U ABNL CT, NODULAR LIVER, CHOLELITHIASIS, ENLARGED SPLEEN, PERICHOLECYSTIC FLUID ABDOMEN ULTRASOUND: Routine examination. Comparison CT scan is from the same day. The IVC and aorta are unremarkable. The liver is enlarged with a nodular contour. There is diffuse increased echogenicity of the liver consistent with steatosis. The liver has a nodular appearance suggestive hepatic cirrhosis. No hepatic mass is seen. There is a 4 mm. stone in the gallbladder neck. There are a few echogenic nodules seen along the wall of the gallbladder consistent with gallbladder polyps. No sludge is seen. The gallbladder wall is thickened at .5 cm. There is a negative sonographic Spann's sign. Small amount of pericholecystic fluid is seen. The common duct is within normal limits at .5 cm. The tail of the pancreas could not be visualized but the remainder of the pancreas is unremarkable. The kidneys are unremarkable. The liver is enlarged measuring 17 cm. The portal vein measures 2.1 cm. There is ascites seen in the upper abdomen. IMPRESSION: Findings suggestive of hepatic cirrhosis with portal hypertension, splenomegaly and abdominal ascites. Cholelithiasis. Gallbladder wall thickening, this may be due to cholecystitis, hepatitis or possible right heart failure. Borderline 5 mm. pericardial effusion.
--- NOTE | 2018-03-24 15:58 | DI.VRAD_ITS ---
EXAM: US Abdomen Complete EXAM DATE/TIME: 03/24/2018 3:34 PM CLINICAL HISTORY: 67 years old, female; Pain; Abdominal pain; Generalized TECHNIQUE: Real-time ultrasound of the abdomen with image documentation. COMPARISON: US renal 03/22/2018 9:07 AM FINDINGS: Heart: Borderline 5 mm pericardial effusion. Liver: Hepatic cirrhosis morphology with nodular contour and/or caudate lobe enlargement and/or left lobe enlargement. Gallbladder: Sonographically negative Spann's sign suggesting cholecystitis. Cholelithiasis. Shadowing gallstone in the gallbladder neck. 3.6 mm echogenic gallbladder polyp. Prominent gallbladder wall thickening measuring 5 mm or more in thickness. Possibly secondary to right heart failure versus hepatitis versus cholecystitis. Common bile duct: Normal. No stones. No dilation. Pancreas: Visualized pancreas is unremarkable. Right kidney: 11.6 x 4.1 x 5.5 cm right kidney. Left kidney: 10.2 x 4.9 cm left kidney. Spleen: Hepatic cirrhosis with portal hypertension, moderate to large splenomegaly and mild right upper quadrant ascites. 16.9 x 15.5 cm moderate to large splenomegaly. Aorta: Normal. No aneurysm. Inferior vena cava: Normal. Portal venous: 21 mm portal vein consistent with portal hypertension. Intraperitoneal space: Mild right upper quadrant ascites. IMPRESSION: 1. Sonographically negative Spann's sign suggesting cholecystitis. 2. Borderline 5 mm pericardial effusion. 3. Hepatic cirrhosis with portal hypertension, moderate to large splenomegaly and mild right upper quadrant ascites. 4. Cholelithiasis. 5. Prominent gallbladder wall thickening measuring 5 mm or more in thickness. Possibly secondary to right heart failure versus hepatitis versus cholecystitis. Dictated and Authenticated by: Herminio Nugent MD. Ordering:CHEYENNE Fish MD
[2018-03-24 16:24] LABS: Heparin Anti-Xa, P 0.16 IU/mL
[2018-03-24] MEDS: Insulin Aspart 300 UNITS/3 ML PEN SC (16:53)
--- NOTE | 2018-03-24 16:59 | PGE_ITS ---
Date of Service Date of service: 03/24/18 Time of Service: 16:55 Assessment and Plan (1) Cholelithiasis: Current visit: Yes Status: Acute 67 y/o female with a complex presentation found to have cholelithiasis with a stone at the gallbladder neck as well as a gallbladder polyp. Gallbladder wall thickening and pericholecystic fluid noted. However, she is also noted to have pleural and pericardial effusions as well as diffuse ascites. ? reactive changes of the gallbladder. Cirrhotic appearing liver and splenomegaly of ? etiology. Recurrent fevers also noted despite broad anti biotic coverage with first Zosyn, then Vancomycin and Meropenem. Discussed with patient and her workup and findings so far. Eventually, she will need a lap josey. However, the gallbladder does not correlate with all of her history/symptoms over the past several weeks. Eventually she will need an EGD/colonoscopy as well once she is medically cleared. Will follow-up labs in am. Continue broad spectrum antibiotic coverage. HIDA scan ordered for 03/26/18 to rule out cystic duct obstruction/acute cholecystitis. Discussed with patient and . Discussed with Dr. Francois. Subjective Interval history since last seen: Chart reviewed and discussed patient with Dr. Francois. Patient had noted shortness of breath this am. She subsequently had a CT angio of the chest with CT abd/pelvis. (+) cholelithiasis with a stone at the gallbladder neck and pericholecystic fluid noted on CT. Patient also noted to have 4 quadrant ascites, mild bilateral pleural effusions, dilated portal vein, splenomegaly, and a nodular cirrhotic appearing liver. Gallbladder ultrasound confirmed a stone at the gallbladder neck as well as a gallbladder polyp, wall thickening, and pericholecystic fluid. Patient notes some nausea when she tries to eat. She notes a chronic history of GERD and acid reflux symptoms but denies any history of fatty food intolerance or post-prandial RUQ pain. Lipase and bilirubin are mildly elevated. Alk phos WNL. She continues to spike intermittent fevers on this admission. Urine culture suggestive of contamination. Repeat urine culture ordered. Patient notes that her symptoms first began with weakness in her legs and then her arms several week ago. Exam Const General: cooperative and no acute distress Nutritional Appearance: well nourished Orientation: alert and oriented x3 Resp Effort & Inspection: normal respiratory effort Auscultation: clear to auscultation bilaterally Cardio Jugular venous pressure: no JVD Rate: regular rate Rhythm: regular rhythm GI Palpation: soft, not firm, no masses, not rigid and tender (mildly tender diffusely, more tender across lower abdomen) in the LLQ, in the RLQ and in the RUQ Auscultation: normal bowel sounds Skin General skin exam: no rashes or lesions noted and no jaundice Objective Objective Clinical Data: Abnormal lab results 03/24/18 03/24/18 03/24/18 Range/Units 04:55 04:55 06:00 WBC 1.75 L* (4.4-10.8) k/cumm RBC 3.45 L (4.00-5.20) m/cumm Hgb 8.1 L (12.0-15.5) g/dL Hct 25.8 L (36.0-46.0) % MCV 74.8 L (80-95) fL MCH 23.5 L (27.0-33.0) pg MCHC 31.4 L (32.0-36.0) g/dL RDW 23.0 H (11.7-14.6) % Plt Count 91 L (130-400) x1000/uL Absolute Lymphocytes 0.32 L (1.2-3.4) k/cumm D-Dimer 3176 H (<500) ng/mlFEU pCO2 (34-47) mmHg O2 Saturation (94-98) % ABG HCO3 (22-28) mmol/L ABG Total CO2 (22-29) mmol/L ABG Base Excess (-3-3) mmol/L Potassium 3.3 L (3.5-5.1) mmol/L Anion Gap 12.7 H (3-11) mmol/L BUN 5 L (7-18) mg/dL Glucose 125 H (70-100) mg/dL Calcium 7.4 L (8.5-10.1) mg/dL Magnesium 1.5 L (1.8-2.4) mg/dL Total Bilirubin 1.7 H (0.2-1.0) mg/dL Conjugated Bilirubin 1.08 H (0.00-0.20) mg/dL Total Protein 5.4 L (6.4-8.2) g/dL Albumin 2.4 L (3.4-5.0) g/dL Lipase 402 H (73-393) U/L Urine Ketones (Negative) mg/dL 03/24/18 03/24/18 Range/Units 09:50 10:57 WBC (4.4-10.8) k/cumm RBC (4.00-5.20) m/cumm Hgb (12.0-15.5) g/dL Hct (36.0-46.0) % MCV (80-95) fL MCH (27.0-33.0) pg MCHC (32.0-36.0) g/dL RDW (11.7-14.6) % Plt Count (130-400) x1000/uL Absolute Lymphocytes (1.2-3.4) k/cumm D-Dimer (<500) ng/mlFEU pCO2 30 L (34-47) mmHg O2 Saturation 99 H (94-98) % ABG HCO3 21 L (22-28) mmol/L ABG Total CO2 20 L (22-29) mmol/L ABG Base Excess -3.4 L (-3-3) mmol/L Potassium (3.5-5.1) mmol/L Anion Gap (3-11) mmol/L BUN (7-18) mg/dL Glucose (70-100) mg/dL Calcium (8.5-10.1) mg/dL Magnesium (1.8-2.4) mg/dL Total Bilirubin (0.2-1.0) mg/dL Conjugated Bilirubin (0.00-0.20) mg/dL Total Protein (6.4-8.2) g/dL Albumin (3.4-5.0) g/dL Lipase (73-393) U/L Urine Ketones 15 H (Negative) mg/dL Vital Signs Temperature 36.9 C 03/24/18 16:11 Temperature Source Tympanic 03/24/18 16:11 Pulse 84 03/24/18 16:11 Pulse Rhythm Regular 03/23/18 23:44 Respiratory Rate 20 03/24/18 16:11 Respiratory Effort 03/23/18 23:44 Respiratory Depth Normal 03/23/18 16:05 Respiratory Pattern Normal 03/23/18 16:05 Blood Pressure 113/71 03/24/18 16:11 Pulse Oximetry 98 03/24/18 16:11 Oxygen Delivery Method Nasal Cannula 03/24/18 16:11 Oxygen Flow Rate 2 03/24/18 16:11 Pain Level 4 03/24/18 12:06 Comment 03/24/18 10:55 Intake & Output 03/23/18 03/24/18 03/24/18 23:59 11:59 23:59 Intake Total 1923.333 / 3838.333 3653.333 / 4253.333 600.000 / 4253.333 Output Total 400 / 1025 2150 / 3050 900 / 3050 Balance 1523.333 / 2813.333 1503.333 / 1203.333 -300.000 / 1203.333 Intake: IV 1683.333 / 3233.333 2863.333 / 3463.333 600.000 / 3463.333 Oral 240 / 605 790 / 790 Output: Urine 125 / 500 1400 / 2300 900 / 2300 Stool 275 / 525 750 / 750 Other: Urine Color Yellow Yellow Straw Urine Appearance Clear Clear Clear Urine Odor Normal None None Comment Void x1 in the toilet. Void x1 in the toilet. Stool Occult Blood Negative Stool Size Small Small Stool Characteristics Soft Soft Soft Liquid Liquid Liquid Green Green Voiding Methods Diaper Toilet Toilet Incontinent Laboratory Results WBC 1.75 k/cumm (4.4-10.8) L* 03/24/18 04:55 RBC 3.45 m/cumm (4.00-5.20) L 03/24/18 04:55 Hgb 8.1 g/dL (12.0-15.5) L 03/24/18 04:55 Hct 25.8 % (36.0-46.0) L 03/24/18 04:55 MCV 74.8 fL (80-95) L 03/24/18 04:55 MCH 23.5 pg (27.0-33.0) L 03/24/18 04:55 MCHC 31.4 g/dL (32.0-36.0) L 03/24/18 04:55 RDW 23.0 % (11.7-14.6) H 03/24/18 04:55 Plt Count 91 x1000/uL (130-400) L 03/24/18 04:55 MPV 10.5 fL (8.0-11.0) 03/24/18 04:55 Immature Gran % See Differential 03/24/18 04:55 Neutrophils % 69.0 03/24/18 04:55 Lymphocytes % 18.0 03/24/18 04:55 Monocytes % 8.0 03/24/18 04:55 Eosinophils % 0.0 03/24/18 04:55 Basophils % 1.0 03/24/18 04:55 Absolute Neutrophils 1.28 k/cumm (1.2-6.7) 03/24/18 04:55 Band Neutrophils 4.0 % 03/24/18 04:55 Absolute Lymphocytes 0.32 k/cumm (1.2-3.4) L 03/24/18 04:55 Absolute Monocytes 0.14 k/cumm (0.11-0.7) 03/24/18 04:55 Absolute Eosinophils 0.00 k/cumm (0.0-0.7) 03/24/18 04:55 Absolute Basophils 0.02 k/cumm (0.0-0.2) 03/24/18 04:55 Metamyelocytes 1.0 % 03/23/18 07:07 Nucleated RBCs 1 /100WBC 03/21/18 14:27 Differential Comment Manual differential 03/24/18 04:55 RBC Morphology See below 03/24/18 04:55 Polychromasia Present 03/24/18 04:55 Hypochromasia 1+ 03/24/18 04:55 Poikilocytosis 1+ 03/24/18 04:55 Anisocytosis 2+ 03/24/18 04:55 Microcytosis 1+ 03/24/18 04:55 ESR 60 MM/HR (0-30) H 03/21/18 14:27 D-Dimer 3176 ng/mlFEU (<500) H 03/24/18 06:00 Sample Site Right radial 03/24/18 10:57 pCO2 30 mmHg (34-47) L 03/24/18 10:57 pO2 93 mmHg (83-108) 03/24/18 10:57 O2 Saturation 99 % (94-98) H 03/24/18 10:57 ABG pH 7.45 (7.35-7.45) 03/24/18 10:57 ABG HCO3 21 mmol/L (22-28) L 03/24/18 10:57 ABG Total CO2 20 mmol/L (22-29) L 03/24/18 10:57 ABG Base Excess -3.4 mmol/L (-3-3) L 03/24/18 10:57 Oxygen Liter Flow 2 L 03/24/18 10:57 Sodium 138 mmol/L (136-145) 03/24/18 04:55 Potassium 3.3 mmol/L (3.5-5.1) L 03/24/18 04:55 Chloride 104 mmol/L (98-107) 03/24/18 04:55 Carbon Dioxide 21.3 mmol/L (21.0-32.0) 03/24/18 04:55 Anion Gap 12.7 mmol/L (3-11) H 03/24/18 04:55 BUN 5 mg/dL (7-18) L 03/24/18 04:55 Creatinine 0.72 mg/dL (0.55-1.02) 03/24/18 04:55 Estimated GFR/1.73 m2 >= 60.00 (mL/min/1.73m2) 03/24/18 04:55 Glucose 125 mg/dL (70-100) H 03/24/18 04:55 Lactate 1.4 mmol/L (0.6-1.4) 03/23/18 07:07 Calcium 7.4 mg/dL (8.5-10.1) L 03/24/18 04:55 Magnesium 1.5 mg/dL (1.8-2.4) L 03/24/18 04:55 Iron 29 ug/dL (50-175) L 03/22/18 16:10 TIBC 323 ug/dL (250-450) 03/22/18 16:10 Transferrin Cancelled 03/22/18 08:25 Transferrin % Sat 9 % (15-50) L 03/22/18 16:10 Ferritin 34 ng/mL (8-388) 03/22/18 06:58 Total Bilirubin 1.7 mg/dL (0.2-1.0) H 03/24/18 04:55 Conjugated Bilirubin 1.08 mg/dL (0.00-0.20) H 03/24/18 04:55 AST 37 U/L (15-37) 03/24/18 04:55 ALT 29 U/L (12-78) 03/24/18 04:55 Alkaline Phosphatase 76 U/L (46-116) 03/24/18 04:55 Creatine Kinase 64 U/L (26-192) 03/23/18 07:07 C-Reactive Protein 3.35 mg/dL (0.0-0.3) H 03/21/18 14:27 Total Protein 5.4 g/dL (6.4-8.2) L 03/24/18 04:55 Albumin 2.4 g/dL (3.4-5.0) L 03/24/18 04:55 Lipase 402 U/L (73-393) H 03/24/18 04:55 Urine Color Yellow (Yellow) 03/24/18 09:50 Urine Clarity Clear 03/24/18 09:50 Urine pH 5.5 (5-8) 03/24/18 09:50 Ur Specific [place] 1.015 (1.005-1.025) 03/24/18 09:50 Urine Protein Negative mg/dL (Negative) 03/24/18 09:50 Urine Ketones 15 mg/dL (Negative) H 03/24/18 09:50 Urine Blood Negative (Negative) 03/24/18 09:50 Urine Nitrite Negative (Negative) 03/24/18 09:50 Urine Bilirubin Negative (Negative) 03/24/18 09:50 Urine Urobilinogen 0.2 EU/dL (Up TO 0.2) 03/24/18 09:50 Ur Leukocyte Esterase Negative (Negative) 03/24/18 09:50 Urine RBC Not Applicable 03/21/18 15:25 Urine WBC HPF (0-5) 03/21/18 15:25 Ur Epithelial Cells Not Applicable 03/21/18 15:25 Urine Crystals Not Applicable 03/21/18 15:25 Urine Bacteria Packed HPF (Negative) 03/21/18 15:25 Urine Mucus Not Applicable 03/21/18 15:25 Ur Culture Indicated? Yes 03/21/18 15:25 Urine Glucose Negative mg/dL (Negative) 03/24/18 09:50 Monoscreen Negative (Negative) 03/24/18 04:55 Path Cons Comment 03/21/18 14:27 Patient ABO/Rh A Positive 03/21/18 14:27 Antibody Screen Negative 03/21/18 14:27 Crossmatch See Detail 03/21/18 14:27 Reaction Clerical Check Cancelled 03/24/18 09:44 Clerical Work Check Cancelled 03/24/18 09:44 Pre-Trans Blood Type Cancelled 03/24/18 09:44 Pre-Trans Bld Appearanc Cancelled 03/24/18 09:44 Pre-Trans VINNY Cancelled 03/24/18 09:44 Post-Trans Blood Type Cancelled 03/24/18 09:44 Post-Trans Spec Appear Cancelled 03/24/18 09:44 Post-Trans VINNY Cancelled 03/24/18 09:44 Reaction Pathol Review Cancelled 03/24/18 09:44 Objective Narrative Objective Narrative: Patient Name: BRITTANIE LUCERO AUnit #: [id number]: MS Ordering Provider: : ADM IN Primary Care Provider: Mara Pantoja M.D.Date of Exam: 03/24/18Sex: F : 2Age: 67 Exam(s) EXAM: US Abdomen Complete EXAM DATE/TIME: 03/24/2018 3:34 PM CLINICAL HISTORY: 67 years old, female; Pain; Abdominal pain; Generalized TECHNIQUE: Real-time ultrasound of the abdomen with image documentation. COMPARISON: US renal 03/22/2018 9:07 AM FINDINGS: Heart: Borderline 5 mm pericardial effusion. Liver: Hepatic cirrhosis morphology with nodular contour and/or caudate lobe enlargement and/or left lobe enlargement. Gallbladder: Sonographically negative Spann's sign suggesting cholecystitis. Cholelithiasis. Shadowing gallstone in the gallbladder neck. 3.6 mm echogenic gallbladder polyp. Prominent gallbladder wall thickening measuring 5 mm or more in thickness. Possibly secondary to right heart failure versus hepatitis versus cholecystitis. Common bile duct: Normal. No stones. No dilation. Pancreas: Visualized pancreas is unremarkable. Right kidney: 11.6 x 4.1 x 5.5 cm right kidney. Left kidney: 10.2 x 4.9 cm left kidney. Spleen: Hepatic cirrhosis with portal hypertension, moderate to large splenomegaly and mild right upper quadrant ascites. 16.9 x 15.5 cm moderate to large splenomegaly. Aorta: Normal. No aneurysm. Inferior vena cava: Normal. Portal venous: 21 mm portal vein consistent with portal hypertension. Intraperitoneal space: Mild right upper quadrant ascites. IMPRESSION: 1. Sonographically negative Spann's sign suggesting cholecystitis. 2. Borderline 5 mm pericardial effusion. 3. Hepatic cirrhosis with portal hypertension, moderate to large splenomegaly and mild right upper quadrant ascites. 4. Cholelithiasis. 5. Prominent gallbladder wall thickening measuring 5 mm or more in thickness. Possibly secondary to right heart failure versus hepatitis versus cholecystitis. Dictated and Authenticated by: Herminio Nugent MD. Ordering:CHEYENNE Fish MD Ordered By: CC: Dictated By: Reports vrad 03/24/18 1534 03/24/18 1558 Transcribed By: Faye Werner This is privileged, confidential information intended only for the provider [facility] ed. Any use or distribution by any person other than this provider is strictly prohibited. If you receive this report in error, please notify us immediately at [phone] and return the original report to us at the address above. Thank- you. Patient Name: BRITTANIE LUCERO AUnfortino #: [id number]: MS Ordering Provider: : ADM IN Primary Care Provider: Mara Pantoja M.D.Date of Exam: 03/24/18Sex: F : 2Age: 67 Exam(s) EXAM: CT Angiography Chest With Contrast EXAM DATE/TIME: 03/24/2018 10:36 AM CLINICAL HISTORY: 67 years old, female; Signs and symptoms; Shortness of breath; Patient HX: Respiratory distress, fuo, pleuritic/abd pain. ; Additional info: Best images obtained due to patient SOB, unable to hold breath for duration of breath hold for scan, repeat done to improve images. TECHNIQUE: Axial computed tomographic angiography images of the chest with intravenous contrast using CT angiography protocol. All CT scans at this facility use at least one of these dose optimization techniques: automated exposure control; mA and/or kV adjustment per patient size (includes targeted exams where dose is matched to clinical indication); or iterative reconstruction. Coronal and sagittal reformatted images were created and reviewed. MIP reconstructed images were created and reviewed. CONTRAST: 100 ml of omnipaque 350 administered intravenously. COMPARISON: CR XR PORTABLE CHEST AP 03/24/2018 4:53 AM FINDINGS: Pulmonary arteries: Normal. No pulmonary emboli. Aorta: Normal. No aortic aneurysm. No aortic dissection. Lungs: Normal. No consolidation. No masses. Pleural space: Mild bilateral pleural fluid collections. Heart: Normal. No cardiomegaly. No pericardial effusion. Lymph nodes: Unremarkable. No enlarged lymph nodes. Bones/joints: Moderate thoracic spondylosis. Soft tissues: Unremarkable. Other findings: Examination is limited secondary to motion artifact. IMPRESSION: Mild bilateral pleural fluid collections. EXAM: CT Angiography Abdomen With Contrast EXAM DATE/TIME: 03/24/2018 10:36 AM CLINICAL HISTORY: 67 years old, female; Signs and symptoms; Shortness of breath; Patient HX: Respiratory distress, fuo, pleuritic/abd pain. ; Additional info: Best images obtained due to patient SOB, unable to hold breath for duration of breath hold for scan, repeat done to improve images. TECHNIQUE: Axial computed tomographic angiography images of the abdomen with intravenous contrast material, including non-contrast images if performed. MIP and/or 3D reconstructed images were created and reviewed. All CT scans at this facility use at least one of these dose optimization techniques: automated exposure control; mA and/or kV adjustment per patient size (includes targeted exams where dose is matched to clinical indication); or iterative reconstruction. Coronal and sagittal reformatted images were created and reviewed. MIP reconstructed images were created and reviewed. COMPARISON: CR XR PORTABLE CHEST AP 03/24/2018 4:53 AM FINDINGS: Lungs: Unremarkable. No consolidation. VASCULATURE: Aorta: Calcification of the abdominal aorta and/or iliac arteries consistent with atherosclerotic vessel disease. Celiac trunk and mesenteric arteries: No occlusion or significant stenosis. Renal arteries: No occlusion or significant stenosis. Portal Venous System: 19 mm portal vein suggesting portal hypertension. ABDOMEN: Liver: Nodular liver suggesting possible cirrhosis. Gallbladder and bile ducts: Calcified gallstone in the neck of the gallbladder. Pericholecystic fluid in the region of the gallbladder consistent with right heart failure versus hepatitis versus cholecystitis. Pancreas: Normal. No ductal dilation. Spleen: Large 18.7 x 16.0 cm splenomegaly. Adrenals: Normal. No mass. Kidneys and ureters: Normal. No hydronephrosis. Stomach and bowel: Mild bowel wall thickening in the antrum is in duodenum with edema or inflammation surrounding the second portion of duodenum consistent with gastroenteritis versus portal enteropathy. Intraperitoneal space: One or more calcified pelvic phleboliths. Mild to moderate four-quadrant ascites. Bones/joints: Unremarkable. No acute fracture. No dislocation. Soft tissues: Unremarkable. Lymph nodes: Unremarkable. No enlarged lymph nodes. IMPRESSION: 1. Mild to moderate four-quadrant ascites. 2. Large 18.7 x 16.0 cm splenomegaly. 3. Nodular liver suggesting possible cirrhosis. 4. 19 mm portal vein suggesting portal hypertension. 5. Calcified gallstone in the neck of the gallbladder. 6. Pericholecystic fluid in the region of the gallbladder consistent with right heart failure versus hepatitis versus cholecystitis. 7. Mild bowel wall thickening in the antrum is in duodenum with edema or inflammation surrounding the second portion of duodenum consistent with gastroenteritis versus portal enteropathy. Dictated and Authenticated by: Herminio Nugent MD. Ordering:CHEYENNE Fish MD Ordered By: CC: Dictated By: Meli cruz 03/24/18 1036 03/24/18 1206 Transcribed By: Faye Werner This is privileged, confidential information intended only for the provider named. Any use or distribution by any person other than this provider is strictly prohibited. If you receive this report in error, please notify us immediately at [phone] and return the original report to us at the address above. Thank-you.
--- NOTE | 2018-03-24 18:48 | W.PM.PROGNOT ---
Date of Service Date of service: 03/24/18 Time of Service: 11:20 Assessment and Plan (1) Sepsis: Current visit: Yes Status: Acute Likely multifactorial: GNR UTI POA (cx mixed, repeat pending) and likely gallbladder disease. Less likely transfusion reaction. It is worrisome that the patient continues to have high fevers. I have now ordered studies for parvovirus as well as tick-borne illness and mononucleosis. Malignancy could be in the differential as well. Continue empiric vancomycin/meropenem. For HIDA scan on Monday prior to solidifying surgical plans. (2) Anemia: Current visit: Yes Status: Acute Hem positive, s/p transfusion, H/H stable today. Continue to monitor. R/o hemolysis. Checking tick studies. Will need EGD. Continue PPI. Qualifiers: Anemia type: unspecified type Iron deficiency anemia type: Vitamin B12 deficiency anemia type: Folate deficiency anemia type: Bone marrow failure anemia type: Hemolytic anemia type: Other causes of anemia: Chronic kidney disease stage: Qualified Code(s): D64.9 - Anemia, unspecified (3) DERRELL (acute kidney injury): Current visit: Yes Status: Resolved Will need to be monitored closely now that the patient has received IV contrast. (4) Supraventricular tachycardia, paroxysmal: Current visit: No Status: Chronic Not a part of our clinical picture today (5) Diabetes mellitus type 2, controlled, without complications: Current visit: No Status: Chronic No change in tx (6) COPD (chronic obstructive pulmonary disease): Current visit: No Status: Chronic Not in acute exacerbation at this time. Has prn nebs (7) Essential hypertension: Current visit: No Status: Chronic BP meds on hold in light of recent hypotension (8) Cholelithiasis: Current visit: Yes Status: Acute For HIDA scan on Monday. Surgical help appreciated. (9) SOB (shortness of breath): Current visit: Yes Status: Acute Likely due to fluid overload. Diuresing gently in light of the patient having received IV contrast. (10) Non-alcoholic fatty liver disease: Current visit: No Status: Chronic Likely the etiology of the cirrhosis seen on CT. I am checking hepatitis studies. (11) Gastroesophageal reflux disease: Current visit: No Status: Chronic PPI + carafate (12) DVT prophylaxis: Current visit: Yes Status: Acute Chemical DVT prophylaxis is contraindicated due to bleeding/anemia. Continue SCD's + CAREN's Subjective Interval history since last seen: I was called to the room for complaints of shortness of breath/tachypnea - with RR in 30's-40's while at a 30 degree angle in bed. Denies dizziness, chest pain, nausea, vomiting. C/o band like abdominal pain in mid abdomen Exam Narrative Exam Narrative: General: Middle aged female, appears mildly jaundiced, tachypneic, sitting up at a 30 degree angle HEENT: EOMI, MMM Heart: RRR, no m/r/g Lungs: Crackles at B bases, wet respiratory sounds. GI: abdomen soft, I am unable to reproduce tenderness on my exam Extremities; no e/c/c BLE's Objective Objective Clinical Data: CTA chest: no PE. B pleural effusions. CT abdomen/pelvis: 1. Mild to moderate four-quadrant ascites. 2. Large 18.7 x 16.0 cm splenomegaly. 3. Nodular liver suggesting possible cirrhosis. 4. 19 mm portal vein suggesting portal hypertension. 5. Calcified gallstone in the neck of the gallbladder. 6. Pericholecystic fluid in the region of the gallbladder consistent with right heart failure versus hepatitis versus cholecystitis. 7. Mild bowel wall thickening in the antrum is in duodenum with edema or inflammation surrounding the second portion of duodenum consistent with gastroenteritis versus portal enteropathy. US abdomen: 1. Sonographically negative Spann's sign suggesting cholecystitis. 2. Borderline 5 mm pericardial effusion. 3. Hepatic cirrhosis with portal hypertension, moderate to large splenomegaly and mild right upper quadrant ascites. 4. Cholelithiasis. 5. Prominent gallbladder wall thickening measuring 5 mm or more in thickness. Possibly secondary to right heart failure versus hepatitis versus cholecystitis.
[2018-03-24] MEDS: Pravastatin 20 MG TAB 10 MG PO (21:48)
[2018-03-25] VITALS (17 sets, daily range): BP systolic 115–160; BP diastolic 62–85; PULSE 78–104; RESP 18–28; TEMP 36.8–39.9; O2SAT 96–98
[2018-03-25] MEDS: ACETAMINOPHEN 1,000 MG/100 ML BTL 400 MG IVPB ×3 (03:37→19:30)
[2018-03-25 07:59] LABS: Abs Immature Grans 0.01 k/cumm (0.0-0.09); Absolute Lymphocyte Count 0.26 k/cumm (1.2-3.4); Absolute Monocyte Count 0.17 k/cumm (0.11-0.7); Absolute Neutrophil Count 1.65 k/cumm (1.2-6.7); HCT 25.6 % (36.0-46.0); HGB 7.6 g/dL (12.0-15.5); Immature Grans % 0.5; Lymphocytes % 12.4; Mean Corp. HGB Concentration 29.7 g/dL (32.0-36.0); Mean Corpuscular Hemoglobin 22.4 pg (27.0-33.0); Mean Corpuscular Volume 75.3 fL (80-95); Mean Platelet Volume 10.6 fL (8.0-11.0); Monocytes % 8.1; Platelet Count 109 x1000/uL (130-400); White Blood Cell Count 2.09 k/cumm (4.4-10.8)
[2018-03-25 08:11] LABS: Anion Gap 9.9 mmol/L (3-11); BUN 10 mg/dL (7-18); CO2 25.1 mmol/L (21.0-32.0); Calcium 7.8 mg/dL (8.5-10.1); Chloride 102 mmol/L (98-107); Glucose 136 mg/dL (70-100); Lipase 341 U/L (73-393); Sodium 137 mmol/L (136-145)
[2018-03-25 08:21] LABS: ALT 28 U/L (12-78); AST 30 U/L (15-37); Albumin 2.4 g/dL (3.4-5.0); Alkaline Phosphatase 95 U/L (46-116); Bilirubin, Direct 0.82 mg/dL (0.00-0.20); Bilirubin, Total 1.3 mg/dL (0.2-1.0); Diff Comment RBC Morph Reviewed; Total Protein 5.5 g/dL (6.4-8.2)
[2018-03-25 08:22] LABS: Anisocytosis 3+; Basophilic Stippling 1+; Hypochromasia 2+; Microcytosis 3+; Ovalocytes 2+
[2018-03-25] MEDS: Potassium Chloride 10 MEQ CAPCR 20 MEQ PO ×2 (08:56→19:40)
[2018-03-25] MEDS: Sucralfate 1 GM TAB PO ×4 (08:56→21:27)
[2018-03-25] MEDS: Pantoprazole 40 MG VIAL IVP ×2 (08:56→19:39)
[2018-03-25] MEDS: Insulin Aspart 300 UNITS/3 ML PEN SC ×3 (08:56→17:26)
[2018-03-25] MEDS: Metoprolol 12.5 MG TAB PO ×2 (08:56→19:40)
[2018-03-25] MEDS: Normal Saline Flush 10 ML SYR IVP ×6 (08:57→19:39)
[2018-03-25] MEDS: Furosemide 20 MG/2 ML VIAL IVP ×3 (08:57→18:08)
[2018-03-25] MEDS: Normal Saline 500 ML 200 ML IV ×2 (09:30→18:08)
[2018-03-25] MEDS: VANCOMYCIN 1,000 MG in Normal Saline 250 ML 250 MG IV ×2 (10:15→19:41)
--- NOTE | 2018-03-25 11:36 | PGE_ITS ---
Date of Service Date of service: 03/25/18 Time of Service: 11:35 Assessment and Plan (1) Cholelithiasis: Current visit: Yes Status: Acute 67 y/o female with a complex presentation found to have cholelithiasis with a stone at the gallbladder neck as well as a gallbladder polyp. Gallbladder wall thickening and pericholecystic fluid noted. However, she is also noted to have pleural and pericardial effusions as well as diffuse ascites. ? reactive changes of the gallbladder. Cirrhotic appearing liver and splenomegaly of ? etiology. Recurrent fevers also noted despite broad anti biotic coverage with first Zosyn, then Vancomycin and Meropenem. Discussed with patient and her workup and findings so far. Eventually, she will need a lap josey. However, the gallbladder does not correlate with all of her history/symptoms over the past several weeks. Eventually she will need an EGD/colonoscopy as well once she is medically cleared. Fever improving. LFTs improving. Will follow-up labs in am. Continue broad spectrum antibiotic coverage. HIDA scan ordered for 03/26/18 to rule out cystic duct obstruction/acute cholecystitis. Discussed again with patient and . Qualifiers: Cholelithiasis location: gallbladder Subjective Interval history since last seen: Patient seen with at bedside. She notes some gas pains this am. No nausea or vomiting. Feeling a little weak. Patient to be transfused for H/H - 7.6/25.6 this am. Fever spikes improved. Temp - 38.2 overnight. Total bili - 1.3 with 0.8 direct. Transaminases and alk phos WNL. Exam Const General: cooperative and no acute distress Orientation: alert and oriented to person [facility] Head: normocephalic and atraumatic Resp Effort & Inspection: normal respiratory effort and able to speak in complete sentences GI Palpation: soft, not firm, no guarding, no masses and tender (mildly tender to palpation) in the LLQ, in the RLQ and in the LUQ Objective Objective Clinical Data: Abnormal lab results 03/24/18 03/25/18 03/25/18 Range/Units 04:55 07:00 07:00 WBC 2.09 L (4.4-10.8) k/cumm RBC 3.40 L (4.00-5.20) m/cumm Hgb 7.6 L (12.0-15.5) g/dL Hct 25.6 L (36.0-46.0) % MCV 75.3 L (80-95) fL MCH 22.4 L (27.0-33.0) pg MCHC 29.7 L (32.0-36.0) g/dL RDW 24.0 H (11.7-14.6) % Plt Count 109 L (130-400) x1000/uL Absolute Lymphocytes 0.26 L (1.2-3.4) k/cumm Potassium 3.3 L (3.5-5.1) mmol/L Anion Gap 12.7 H (3-11) mmol/L BUN 5 L (7-18) mg/dL Glucose 125 H 136 H (70-100) mg/dL Calcium 7.4 L 7.8 L (8.5-10.1) mg/dL Magnesium 1.5 L (1.8-2.4) mg/dL Total Bilirubin 1.7 H (0.2-1.0) mg/dL Conjugated Bilirubin 1.08 H (0.00-0.20) mg/dL Total Protein 5.4 L (6.4-8.2) g/dL Albumin 2.4 L (3.4-5.0) g/dL Lipase 402 H (73-393) U/L Crossmatch 03/25/18 03/25/18 Range/Units 07:00 09:49 WBC (4.4-10.8) k/cumm RBC (4.00-5.20) m/cumm Hgb (12.0-15.5) g/dL Hct (36.0-46.0) % MCV (80-95) fL MCH (27.0-33.0) pg MCHC (32.0-36.0) g/dL RDW (11.7-14.6) % Plt Count (130-400) x1000/uL Absolute Lymphocytes (1.2-3.4) k/cumm Potassium (3.5-5.1) mmol/L Anion Gap (3-11) mmol/L BUN (7-18) mg/dL Glucose (70-100) mg/dL Calcium (8.5-10.1) mg/dL Magnesium (1.8-2.4) mg/dL Total Bilirubin 1.3 H (0.2-1.0) mg/dL Conjugated Bilirubin 0.82 H (0.00-0.20) mg/dL Total Protein 5.5 L (6.4-8.2) g/dL Albumin 2.4 L (3.4-5.0) g/dL Lipase (73-393) U/L Crossmatch See Detail Vital Signs Temperature 37.3 C 03/25/18 09:46 Temperature Source Tympanic 03/25/18 09:46 Pulse 90 03/25/18 09:46 Pulse Rhythm Regular 03/25/18 07:35 Respiratory Rate 28 H 03/25/18 09:46 Respiratory Effort Non-Labored 03/25/18 07:35 Respiratory Depth Normal 03/25/18 07:35 Respiratory Pattern Tachypnea 03/25/18 07:35 Blood Pressure 156/70 H 03/25/18 09:46 Pulse Oximetry 97 03/25/18 09:46 Oxygen Delivery Method Nasal Cannula 03/25/18 09:46 Oxygen Flow Rate 2 03/25/18 09:46 Pain Level 2 03/25/18 09:46 Comment 03/25/18 07:35 Intake & Output 03/24/18 03/24/18 03/25/18 11:59 23:59 11:59 Intake Total 3653.333 / 5590.000 1936.667 / 5590.000 640.000 / 640.000 Output Total 2150 / 3050 900 / 3050 800 / 800 Balance 1503.333 / 2540.000 1036.667 / 2540.000 -160.000 / -160.000 Intake: IV 2863.333 / 4200.000 1336.667 / 4200.000 400.000 / 400.000 Oral 790 / 1390 600 / 1390 240 / 240 Output: Urine 1400 / 2300 900 / 2300 500 / 500 Stool 750 / 750 300 / 300 Other: Urine Color Yellow Straw Straw Urine Appearance Clear Clear Clear Urine Odor None None None Comment Void x1 in the toilet. Void x1 in the toilet. Void x1 in the toilet. Stool Size Small Small Moderate Stool Characteristics Soft Soft Soft Liquid Liquid Liquid Green Green Green Voiding Methods Toilet Toilet Toilet Laboratory Results WBC 2.09 k/cumm (4.4-10.8) L 03/25/18 07:00 RBC 3.40 m/cumm (4.00-5.20) L 03/25/18 07:00 Hgb 7.6 g/dL (12.0-15.5) L 03/25/18 07:00 Hct 25.6 % (36.0-46.0) L 03/25/18 07:00 MCV 75.3 fL (80-95) L 03/25/18 07:00 MCH 22.4 pg (27.0-33.0) L 03/25/18 07:00 MCHC 29.7 g/dL (32.0-36.0) L 03/25/18 07:00 RDW 24.0 % (11.7-14.6) H 03/25/18 07:00 Plt Count 109 x1000/uL (130-400) L 03/25/18 07:00 MPV 10.6 fL (8.0-11.0) 03/25/18 07:00 Immature Gran % 0.5 03/25/18 07:00 Neutrophils % 79.0 03/25/18 07:00 Lymphocytes % 12.4 03/25/18 07:00 Monocytes % 8.1 03/25/18 07:00 Eosinophils % 0.0 03/25/18 07:00 Basophils % 0.0 03/25/18 07:00 Absolute Neutrophils 1.65 k/cumm (1.2-6.7) 03/25/18 07:00 Band Neutrophils 4.0 % 03/24/18 04:55 Absolute Lymphocytes 0.26 k/cumm (1.2-3.4) L 03/25/18 07:00 Absolute Monocytes 0.17 k/cumm (0.11-0.7) 03/25/18 07:00 Absolute Eosinophils 0.00 k/cumm (0.0-0.7) 03/25/18 07:00 Absolute Basophils 0.00 k/cumm (0.0-0.2) 03/25/18 07:00 Metamyelocytes 1.0 % 03/23/18 07:07 Nucleated RBCs 1 /100WBC 03/21/18 14:27 Differential Comment Rbc morph reviewed 03/25/18 07:00 RBC Morphology See below 03/24/18 04:55 Polychromasia Present 03/24/18 04:55 Hypochromasia 2+ 03/25/18 07:00 Poikilocytosis 1+ 03/24/18 04:55 Basophilic Stippling 1+ 03/25/18 07:00 Anisocytosis 3+ 03/25/18 07:00 Microcytosis 3+ 03/25/18 07:00 Ovalocytes 2+ 03/25/18 07:00 ESR 60 MM/HR (0-30) H 03/21/18 14:27 D-Dimer 3176 ng/mlFEU (<500) H 03/24/18 06:00 Sample Site Right radial 03/24/18 10:57 pCO2 30 mmHg (34-47) L 03/24/18 10:57 pO2 93 mmHg (83-108) 03/24/18 10:57 O2 Saturation 99 % (94-98) H 03/24/18 10:57 ABG pH 7.45 (7.35-7.45) 03/24/18 10:57 ABG HCO3 21 mmol/L (22-28) L 03/24/18 10:57 ABG Total CO2 20 mmol/L (22-29) L 03/24/18 10:57 ABG Base Excess -3.4 mmol/L (-3-3) L 03/24/18 10:57 Oxygen Liter Flow 2 L 03/24/18 10:57 Sodium 137 mmol/L (136-145) 03/25/18 07:00 Potassium 4.0 mmol/L (3.5-5.1) D 03/25/18 07:00 Chloride 102 mmol/L (98-107) 03/25/18 07:00 Carbon Dioxide 25.1 mmol/L (21.0-32.0) 03/25/18 07:00 Anion Gap 9.9 mmol/L (3-11) 03/25/18 07:00 BUN 10 mg/dL (7-18) 03/25/18 07:00 Creatinine 0.70 mg/dL (0.55-1.02) 03/25/18 07:00 Estimated GFR/1.73 m2 >= 60.00 (mL/min/1.73m2) 03/25/18 07:00 Glucose 136 mg/dL (70-100) H 03/25/18 07:00 Lactate 1.4 mmol/L (0.6-1.4) 03/23/18 07:07 Calcium 7.8 mg/dL (8.5-10.1) L 03/25/18 07:00 Magnesium 2.0 mg/dL (1.8-2.4) 03/25/18 07:00 Iron 29 ug/dL (50-175) L 03/22/18 16:10 TIBC 323 ug/dL (250-450) 03/22/18 16:10 Transferrin Cancelled 03/22/18 08:25 Transferrin % Sat 9 % (15-50) L 03/22/18 16:10 Ferritin 34 ng/mL (8-388) 03/22/18 06:58 Total Bilirubin 1.3 mg/dL (0.2-1.0) H 03/25/18 07:00 Conjugated Bilirubin 0.82 mg/dL (0.00-0.20) H 03/25/18 07:00 AST 30 U/L (15-37) 03/25/18 07:00 ALT 28 U/L (12-78) 03/25/18 07:00 Alkaline Phosphatase 95 U/L (46-116) 03/25/18 07:00 Creatine Kinase 64 U/L (26-192) 03/23/18 07:07 C-Reactive Protein 3.35 mg/dL (0.0-0.3) H 03/21/18 14:27 Total Protein 5.5 g/dL (6.4-8.2) L 03/25/18 07:00 Albumin 2.4 g/dL (3.4-5.0) L 03/25/18 07:00 Lipase 341 U/L (73-393) 03/25/18 07:00 Urine Color Yellow (Yellow) 03/24/18 09:50 Urine Clarity Clear 03/24/18 09:50 Urine pH 5.5 (5-8) 03/24/18 09:50 Ur Specific [place] 1.015 (1.005-1.025) 03/24/18 09:50 Urine Protein Negative mg/dL (Negative) 03/24/18 09:50 Urine Ketones 15 mg/dL (Negative) H 03/24/18 09:50 Urine Blood Negative (Negative) 03/24/18 09:50 Urine Nitrite Negative (Negative) 03/24/18 09:50 Urine Bilirubin Negative (Negative) 03/24/18 09:50 Urine Urobilinogen 0.2 EU/dL (Up TO 0.2) 03/24/18 09:50 Ur Leukocyte Esterase Negative (Negative) 03/24/18 09:50 Urine RBC Not Applicable 03/21/18 15:25 Urine WBC HPF (0-5) 03/21/18 15:25 Ur Epithelial Cells Not Applicable 03/21/18 15:25 Urine Crystals Not Applicable 03/21/18 15:25 Urine Bacteria Packed HPF (Negative) 03/21/18 15:25 Urine Mucus Not Applicable 03/21/18 15:25 Ur Culture Indicated? Yes 03/21/18 15:25 Urine Glucose Negative mg/dL (Negative) 03/24/18 09:50 Vancomycin Trough 11.0 ug/mL (10.0-20.0) 03/25/18 09:10 Monoscreen Negative (Negative) 03/24/18 04:55 Path Cons Comment 03/21/18 14:27 Patient ABO/Rh A Positive 03/21/18 14:27 Antibody Screen Negative 03/21/18 14:27 Crossmatch See Detail 03/25/18 09:49 Reaction Clerical Check Cancelled 03/24/18 09:44 Clerical Work Check Cancelled 03/24/18 09:44 Pre-Trans Blood Type Cancelled 03/24/18 09:44 Pre-Trans Bld Appearanc Cancelled 03/24/18 09:44 Pre-Trans VINNY Cancelled 03/24/18 09:44 Post-Trans Blood Type Cancelled 03/24/18 09:44 Post-Trans Spec Appear Cancelled 03/24/18 09:44 Post-Trans VINNY Cancelled 03/24/18 09:44 Reaction Pathol Review Cancelled 03/24/18 09:44
--- NOTE | 2018-03-25 12:11 | DM INPTCON_ITS ---
DESCRIPTION/ASSESSMENT: Appreciate diabetes consult for Ms. Nix who is hospitalized initially with pyelonephritis now with cholelithiasis. BMI 24 Blood sugars this hospitalization primarily under 200 with sensitive insulin correction. She is eating 15-30grams carbohydrate most meals. Ms. Nix manages diabetes at home with Metformin, GLimepiride, Victoza and 30u Glargine with current A1c 7 at or near goal for past few years. Visited with her briefly. She states she monitors her blood sugars daily and pays attention to diabetes self management. INTERVENTION: No intervention at this time. She states she does not have self management concerns at this time. PLAN: Will follow blood sugars.
[2018-03-25 13:12] LABS: INR 1.1 (0.9-1.1)
[2018-03-25] MEDS: diphenhydrAMINE 25 MG CAP PO (13:36)
--- NOTE | 2018-03-25 14:11 | W.PM.PROGNOT ---
Date of Service Date of service: 03/25/18 Time of Service: 14:32 Assessment and Plan (1) Sepsis: Current visit: Yes Status: Acute Exact source unclear, could be multiple. Repeat UA is negative for UTI. Cholecystitis is the most likely source; SBP not impossible, though pain is minimal. Discussed with ID at [facility] - Vancomycin/meropenem should be kept on, for now. In addition to bloodwork already ordered, CMV and EBV were recommended. Await results of tick-borne studies, parvovirus, mono. For HIDA scan tomorrow (2) Anemia: Current visit: Yes Status: Acute Hem positive with evidence of iron deficiency, likely due to slow GI bleeding, s/p transfusion, Requiring 1 more unit of pRBC's today. Discussed with heme at [facility] - malignancy/lymphoma less likely. Haptoglobin is pending to r/o hemolysis. Await tick studies. Will need EGD. Continue PPI. Qualifiers: Anemia type: unspecified type Bone marrow failure anemia type: Chronic kidney disease stage: Folate deficiency anemia type: Hemolytic anemia type: Iron deficiency anemia type: Other causes of anemia: Vitamin B12 deficiency anemia type: Qualified Code(s): D64.9 - Anemia, unspecified (3) DERRELL (acute kidney injury): Current visit: Yes Status: Resolved Will need to be monitored closely now that the patient has received IV contrast. Requiring diuretics (4) Supraventricular tachycardia, paroxysmal: Current visit: No Status: Chronic Not a part of our clinical picture today (5) Diabetes mellitus type 2, controlled, without complications: Current visit: No Status: Chronic No change in tx (6) COPD (chronic obstructive pulmonary disease): Current visit: No Status: Chronic Wheezing noted on exam today - ?mild exacerbation. I favor fluid overload vs acute respiratory process. Will monitor post diuresis. Continue prn nebs. (7) Essential hypertension: Current visit: No Status: Chronic BP meds on hold in light of recent hypotension (8) Cholelithiasis: Current visit: Yes Status: Acute For HIDA scan on Monday. Surgical help appreciated. Qualifiers: Biliary obstruction: Cholangitis acuity: Cholangitis presence: Cholecystitis acuity: Cholecystitis presence: Cholelithiasis location: gallbladder (9) SOB (shortness of breath): Current visit: Yes Status: Acute Likely due to fluid overload. Continue gentle diuresis. Will receive extra lasix post blood transfusion. (10) Non-alcoholic fatty liver disease: Current visit: No Status: Chronic Likely the etiology of the cirrhosis seen on CT. Await hepatitis studies (11) Gastroesophageal reflux disease: Current visit: No Status: Chronic PPI + carafate (12) DVT prophylaxis: Current visit: Yes Status: Acute Chemical DVT prophylaxis is contraindicated due to bleeding/anemia. Continue SCD's + CAREN's (13) Portal hypertension: Current visit: Yes Status: Acute likely due to cirrhosis. Will add nadolol, monitoring for bronchospasm. (14) Ascites: Current visit: Yes Status: Acute If Cr is ok tomorrow, would add aldactone. Per ID at [facility], needs paracenthesis to ensure that this is not SBP. (15) Cirrhosis: Current visit: Yes Status: Chronic New diagnosis. Etiology is, most likely, fatty liver disease/SILVESTRE. Hepatitis studies are pending, as is echo. (16) Splenomegaly: Current visit: Yes Status: Chronic Likely due to cirrhosis, but could also be a part of a viral process (mono, etc) or lymphoma (much less likely). Will need outpatient follow up. (17) Pancytopenia: Current visit: Yes Status: Acute Discussed with heme (Dr Goodwin) at [facility], who feels that pancytopenia is possibly due to zosyn, possibly due to cirrhosis/sepsis, and anemia has a GI bleed component. Lymphoma is very low on differential as WBC and platelets seem to be improving. Subjective Interval history since last seen: Feels less short of breath today. Denies dizziness, chest pain, nausea, vomiting. Had some green diarrhea and midabdominal pain. Exam Narrative Exam Narrative: General: Middle aged female, appears mildly jaundiced, less tachypneic today, sitting up at a 30 degree angle HEENT: EOMI, MMM Heart: RRR, no m/r/g Lungs: wheezing on expiration B GI: abdomen soft, mild ascites. I think I can palpated an enlarged liver Extremities; no e/c/c BLE's Objective Objective Clinical Data: Abnormal lab results 03/25/18 03/25/18 03/25/18 Range/Units 07:00 07:00 07:00 WBC 2.09 L (4.4-10.8) k/cumm RBC 3.40 L (4.00-5.20) m/cumm Hgb 7.6 L (12.0-15.5) g/dL Hct 25.6 L (36.0-46.0) % MCV 75.3 L (80-95) fL MCH 22.4 L (27.0-33.0) pg MCHC 29.7 L (32.0-36.0) g/dL RDW 24.0 H (11.7-14.6) % Plt Count 109 L (130-400) x1000/uL Absolute Lymphocytes 0.26 L (1.2-3.4) k/cumm Glucose 136 H (70-100) mg/dL Calcium 7.8 L (8.5-10.1) mg/dL Total Bilirubin 1.3 H (0.2-1.0) mg/dL Conjugated Bilirubin 0.82 H (0.00-0.20) mg/dL Total Protein 5.5 L (6.4-8.2) g/dL Albumin 2.4 L (3.4-5.0) g/dL Crossmatch 03/25/18 Range/Units 11:47 WBC (4.4-10.8) k/cumm RBC (4.00-5.20) m/cumm Hgb (12.0-15.5) g/dL Hct (36.0-46.0) % MCV (80-95) fL MCH (27.0-33.0) pg MCHC (32.0-36.0) g/dL RDW (11.7-14.6) % Plt Count (130-400) x1000/uL Absolute Lymphocytes (1.2-3.4) k/cumm Glucose (70-100) mg/dL Calcium (8.5-10.1) mg/dL Total Bilirubin (0.2-1.0) mg/dL Conjugated Bilirubin (0.00-0.20) mg/dL Total Protein (6.4-8.2) g/dL Albumin (3.4-5.0) g/dL Crossmatch See Detail Vital Signs Temperature 37.4 C 03/25/18 14:08 Temperature Source Tympanic 03/25/18 11:10 Pulse 86 03/25/18 14:08 Pulse Rhythm Regular 03/25/18 07:35 Respiratory Rate 20 03/25/18 14:08 Respiratory Effort Non-Labored 03/25/18 07:35 Respiratory Depth Normal 03/25/18 07:35 Respiratory Pattern Tachypnea 03/25/18 07:35 Blood Pressure 116/67 03/25/18 14:08 Pulse Oximetry 96 03/25/18 14:08 Oxygen Delivery Method Nasal Cannula 03/25/18 14:08 Oxygen Flow Rate 2 03/25/18 14:08 Pain Level 2 03/25/18 07:50 Comment 03/25/18 07:35 Intake & Output 03/24/18 03/25/18 03/25/18 23:59 11:59 23:59 Intake Total 1936.667 / 5590.000 1036.667 / 1276.667 240 / 1276.667 Output Total 900 / 3050 800 / 800 Balance 1036.667 / 2540.000 236.667 / 476.667 240 / 476.667 Intake: IV 1336.667 / 4200.000 796.667 / 796.667 Oral 600 / 1390 240 / 480 240 / 480 Output: Urine 900 / 2300 500 / 500 Stool 300 / 300 Other: Urine Color Straw Straw Urine Appearance Clear Clear Urine Odor None None Comment Void x1 in the toilet. Void x1 in the toilet. Stool Size Small Moderate Stool Characteristics Soft Soft Liquid Liquid Green Green Voiding Methods Toilet Toilet Laboratory Results WBC 2.09 k/cumm (4.4-10.8) L 03/25/18 07:00 RBC 3.40 m/cumm (4.00-5.20) L 03/25/18 07:00 Hgb 7.6 g/dL (12.0-15.5) L 03/25/18 07:00 Hct 25.6 % (36.0-46.0) L 03/25/18 07:00 MCV 75.3 fL (80-95) L 03/25/18 07:00 MCH 22.4 pg (27.0-33.0) L 03/25/18 07:00 MCHC 29.7 g/dL (32.0-36.0) L 03/25/18 07:00 RDW 24.0 % (11.7-14.6) H 03/25/18 07:00 Plt Count 109 x1000/uL (130-400) L 03/25/18 07:00 MPV 10.6 fL (8.0-11.0) 03/25/18 07:00 Immature Gran % 0.5 03/25/18 07:00 Neutrophils % 79.0 03/25/18 07:00 Lymphocytes % 12.4 03/25/18 07:00 Monocytes % 8.1 03/25/18 07:00 Eosinophils % 0.0 03/25/18 07:00 Basophils % 0.0 03/25/18 07:00 Absolute Neutrophils 1.65 k/cumm (1.2-6.7) 03/25/18 07:00 Band Neutrophils 4.0 % 03/24/18 04:55 Absolute Lymphocytes 0.26 k/cumm (1.2-3.4) L 03/25/18 07:00 Absolute Monocytes 0.17 k/cumm (0.11-0.7) 03/25/18 07:00 Absolute Eosinophils 0.00 k/cumm (0.0-0.7) 03/25/18 07:00 Absolute Basophils 0.00 k/cumm (0.0-0.2) 03/25/18 07:00 Metamyelocytes 1.0 % 03/23/18 07:07 Nucleated RBCs 1 /100WBC 03/21/18 14:27 Differential Comment Rbc morph reviewed 03/25/18 07:00 RBC Morphology See below 03/24/18 04:55 Polychromasia Present 03/24/18 04:55 Hypochromasia 2+ 03/25/18 07:00 Poikilocytosis 1+ 03/24/18 04:55 Basophilic Stippling 1+ 03/25/18 07:00 Anisocytosis 3+ 03/25/18 07:00 Microcytosis 3+ 03/25/18 07:00 Ovalocytes 2+ 03/25/18 07:00 ESR 60 MM/HR (0-30) H 03/21/18 14:27 PT 11.0 sec (9.3-11.0) 03/25/18 12:45 INR 1.1 (0.9-1.1) 03/25/18 12:45 APTT 25.0 sec (21.0-31.4) 03/25/18 12:45 D-Dimer 3176 ng/mlFEU (<500) H 03/24/18 06:00 Sample Site Right radial 03/24/18 10:57 pCO2 30 mmHg (34-47) L 03/24/18 10:57 pO2 93 mmHg (83-108) 03/24/18 10:57 O2 Saturation 99 % (94-98) H 03/24/18 10:57 ABG pH 7.45 (7.35-7.45) 03/24/18 10:57 ABG HCO3 21 mmol/L (22-28) L 03/24/18 10:57 ABG Total CO2 20 mmol/L (22-29) L 03/24/18 10:57 ABG Base Excess -3.4 mmol/L (-3-3) L 03/24/18 10:57 Oxygen Liter Flow 2 L 03/24/18 10:57 Sodium 137 mmol/L (136-145) 03/25/18 07:00 Potassium 4.0 mmol/L (3.5-5.1) D 03/25/18 07:00 Chloride 102 mmol/L (98-107) 03/25/18 07:00 Carbon Dioxide 25.1 mmol/L (21.0-32.0) 03/25/18 07:00 Anion Gap 9.9 mmol/L (3-11) 03/25/18 07:00 BUN 10 mg/dL (7-18) 03/25/18 07:00 Creatinine 0.70 mg/dL (0.55-1.02) 03/25/18 07:00 Estimated GFR/1.73 m2 >= 60.00 (mL/min/1.73m2) 03/25/18 07:00 Glucose 136 mg/dL (70-100) H 03/25/18 07:00 Lactate 1.4 mmol/L (0.6-1.4) 03/23/18 07:07 Calcium 7.8 mg/dL (8.5-10.1) L 03/25/18 07:00 Magnesium 2.0 mg/dL (1.8-2.4) 03/25/18 07:00 Iron 29 ug/dL (50-175) L 03/22/18 16:10 TIBC 323 ug/dL (250-450) 03/22/18 16:10 Transferrin Cancelled 03/22/18 08:25 Transferrin % Sat 9 % (15-50) L 03/22/18 16:10 Ferritin 34 ng/mL (8-388) 03/22/18 06:58 Total Bilirubin 1.3 mg/dL (0.2-1.0) H 03/25/18 07:00 Conjugated Bilirubin 0.82 mg/dL (0.00-0.20) H 03/25/18 07:00 AST 30 U/L (15-37) 03/25/18 07:00 ALT 28 U/L (12-78) 03/25/18 07:00 Alkaline Phosphatase 95 U/L (46-116) 03/25/18 07:00 Creatine Kinase 64 U/L (26-192) 03/23/18 07:07 C-Reactive Protein 3.35 mg/dL (0.0-0.3) H 03/21/18 14:27 Total Protein 5.5 g/dL (6.4-8.2) L 03/25/18 07:00 Albumin 2.4 g/dL (3.4-5.0) L 03/25/18 07:00 Lipase 341 U/L (73-393) 03/25/18 07:00 Urine Color Yellow (Yellow) 03/24/18 09:50 Urine Clarity Clear 03/24/18 09:50 Urine pH 5.5 (5-8) 03/24/18 09:50 Ur Specific [place] 1.015 (1.005-1.025) 03/24/18 09:50 Urine Protein Negative mg/dL (Negative) 03/24/18 09:50 Urine Ketones 15 mg/dL (Negative) H 03/24/18 09:50 Urine Blood Negative (Negative) 03/24/18 09:50 Urine Nitrite Negative (Negative) 03/24/18 09:50 Urine Bilirubin Negative (Negative) 03/24/18 09:50 Urine Urobilinogen 0.2 EU/dL (Up TO 0.2) 03/24/18 09:50 Ur Leukocyte Esterase Negative (Negative) 03/24/18 09:50 Urine RBC Not Applicable 03/21/18 15:25 Urine WBC HPF (0-5) 03/21/18 15:25 Ur Epithelial Cells Not Applicable 03/21/18 15:25 Urine Crystals Not Applicable 03/21/18 15:25 Urine Bacteria Packed HPF (Negative) 03/21/18 15:25 Urine Mucus Not Applicable 03/21/18 15:25 Ur Culture Indicated? Yes 03/21/18 15:25 Urine Glucose Negative mg/dL (Negative) 03/24/18 09:50 Vancomycin Trough 11.0 ug/mL (10.0-20.0) 03/25/18 09:10 Monoscreen Negative (Negative) 03/24/18 04:55 Path Cons Comment 03/21/18 14:27 Patient ABO/Rh A Positive 03/25/18 11:47 Antibody Screen Negative 03/25/18 11:47 Crossmatch See Detail 03/25/18 11:47 Reaction Clerical Check Cancelled 03/24/18 09:44 Clerical Work Check Cancelled 03/24/18 09:44 Pre-Trans Blood Type Cancelled 03/24/18 09:44 Pre-Trans Bld Appearanc Cancelled 03/24/18 09:44 Pre-Trans VINNY Cancelled 03/24/18 09:44 Post-Trans Blood Type Cancelled 03/24/18 09:44 Post-Trans Spec Appear Cancelled 03/24/18 09:44 Post-Trans VINNY Cancelled 03/24/18 09:44 Reaction Pathol Review Cancelled 03/24/18 09:44
[2018-03-25] MEDS: Albuterol 2.5 MG/3 ML INH SOLN VIAL UPD (14:40)
--- NOTE | 2018-03-25 14:43 | PDOC.CMPRO ---
- If Service Date Differs Date of service: 03/25/18 Time of Service: 14:43 Care Management Progress Note S/O: Alayna is sitting on the edge of her bed this morning she is receptive to discussion. Alayna is being tested for C. Diff at this time and is on precautions. She remains on telemetry monitoring as of this morning. Reviewed CM role and DC plan. A: 67 year old female admitted to [facility] 03/21/17 for Pyelonephritis P: Alayna remains on telemetry, IVF and IV ABX at this time. CM will continue and monitor clinical status for discharge planning considerations. Anticipate Alayna will return home with no additional services at this time and will have outpatient follow up with surgical services of endoscopy colonoscopy.
[2018-03-25] MEDS: Pravastatin 20 MG TAB 10 MG PO (21:27)
[2018-03-26] VITALS (9 sets, daily range): BP systolic 112–166; BP diastolic 59–79; PULSE 66–90; RESP 18–28; TEMP 36.5–39.1; O2SAT 95–98
[2018-03-26] MEDS: Normal Saline Flush 10 ML SYR IVP ×5 (01:39→20:57)
[2018-03-26] MEDS: ACETAMINOPHEN 1,000 MG/100 ML BTL 400 MG IVPB ×3 (04:00→20:14)
[2018-03-26] MEDS: VANCOMYCIN 1,000 MG in Normal Saline 250 ML 250 MG IV ×3 (04:23→20:57)
[2018-03-26 07:26] LABS: Abs Immature Grans 0.01 k/cumm (0.0-0.09); Absolute Eosinophil Count 0.02 k/cumm (0.0-0.7); Absolute Lymphocyte Count 0.48 k/cumm (1.2-3.4); Absolute Monocyte Count 0.23 k/cumm (0.11-0.7); Absolute Neutrophil Count 1.54 k/cumm (1.2-6.7); Eosinophils % 0.9; HCT 28.8 % (36.0-46.0); HGB 8.7 g/dL (12.0-15.5); Immature Grans % 0.4; Lymphocytes % 21.1; Mean Corp. HGB Concentration 30.2 g/dL (32.0-36.0); Mean Corpuscular Hemoglobin 22.8 pg (27.0-33.0); Mean Corpuscular Volume 75.6 fL (80-95); Mean Platelet Volume 10.6 fL (8.0-11.0); Monocytes % 10.1; Neutrophils % 67.5; Platelet Count 120 x1000/uL (130-400); RBC 3.81 m/cumm (4.00-5.20); RBC Distribution Width 23.3 % (11.7-14.6); White Blood Cell Count 2.28 k/cumm (4.4-10.8)
[2018-03-26 07:34] LABS: Anion Gap 5.9 mmol/L (3-11); BUN 10 mg/dL (7-18); CO2 30.1 mmol/L (21.0-32.0); CREATININE 0.67 mg/dL (0.55-1.02); Calcium 7.8 mg/dL (8.5-10.1); Chloride 102 mmol/L (98-107); Glucose 139 mg/dL (70-100); Magnesium 1.8 mg/dL (1.8-2.4); Potassium 3.2 mmol/L (3.5-5.1); Sodium 138 mmol/L (136-145)
[2018-03-26 07:37] LABS: ALT 27 U/L (12-78); AST 37 U/L (15-37); Albumin 2.4 g/dL (3.4-5.0); Alkaline Phosphatase 113 U/L (46-116); Bilirubin, Direct 0.66 mg/dL (0.00-0.20); Bilirubin, Total 1.1 mg/dL (0.2-1.0); Total Protein 5.8 g/dL (6.4-8.2)
--- NOTE | 2018-03-26 08:48 | PDOC.CMPRO ---
Care Management Progress Note S/O: Alayna remains on Vancomycin/meropenem; continues to consult with ID at [facility]. Alayna will have repeat bloodwork, CMV and EBV as well as a HIDA scan today to inform next steps. Alayna was out of the room when CM attempted to meet with her-having a HIDA scan, her son was napping in the chair. CM will continue to follow. A: 67 year old female admitted to [facility] 03/21/17 for Pyelonephritis P: Alayna remains on telemetry, IVF and IV ABX at this time. CM will continue and monitor clinical status for discharge planning considerations. Anticipate Alayna will return home with no additional services at this time and will have outpatient follow up with surgical services of endoscopy colonoscopy.
--- NOTE | 2018-03-26 08:59 | CMPROGNOTE_ITS ---
Care Management Progress Note S/O: Alayna remains on Vancomycin/meropenem; continues to consult with ID at [facility]. Alayna will have repeat bloodwork, CMV and EBV as well as a HIDA scan today to inform next steps. Alayna was out of the room when CM attempted to meet with her-having a HIDA scan, her son was napping in the chair. CM will continue to follow. A: 67 year old female admitted to [facility] 03/21/17 for Pyelonephritis P: Alayna remains on telemetry, IVF and IV ABX at this time. CM will continue and monitor clinical status for discharge planning considerations. Anticipate Alayna will return home with no additional services at this time and will have outpatient follow up with surgical services of endoscopy colonoscopy.
--- NOTE | 2018-03-26 09:00 | MERGE_ITS ---
*[facility]* *[facility]* [address] [place] [address] Date of study: 03/26/2018 Transthoracic Echocardiography M-mode, complete 2D, complete spectral Doppler, and color Doppler *STUDY CONCLUSIONS* Summary: 1. Left ventricle: The cavity size was normal. Wall thickness was increased in a pattern of mild LVH. Systolic function was hyperdynamic. The estimated ejection fraction was 65-70%. Findings consistent with diastolic dysfunction. Doppler parameters are consistent with high ventricular filling pressure. 2. Aortic valve: There was trivial regurgitation. 3. Mitral valve: There was mild to moderate regurgitation. 4. Left atrium: The atrium was mildly dilated. 5. Right ventricle: The cavity size was normal. Wall thickness was normal. Systolic function was normal. 6. Atrial septum: No defect or patent foramen ovale was identified. 7. Pulmonary arteries: Pulmonary systolic pressure was in the range of 30mm Hg to 40mm Hg. 8. Inferior vena cava: The vessel was patent and normal in size. The respirophasic diameter changes were in the normal range (greater than or equal to 50%), consistent with normal central venous pressure. *PATIENT PRESENTATION* Height: 165.1cm ((65in) ) S/D Pressure: 126 / 73 Weight: 66.2kg ((145.7lb) ) BSA: 1.75m^2 Test start time: 07:55 AM. Test stop time: 08:45 AM. CONSULTING Mara Pantoja [facility] PLANT FACILITIES TECHNICIAN Opal Conklin, (R)(CT), [facility] ORDERING Polina Francois REFERRING Priscila, Polina A *PROCEDURE DATA* Procedure information: The patient was identified by two identifiers. This study was interpreted by [facility]. Pertinent images and digital data are archived for permanent storage and are available for subsequent review. Comparison was made to the study of 06/03/2016. Study status: Routine. Transthoracic echocardiography. M-mode, complete 2D, complete spectral Doppler, and color Doppler. A Transthoracic Echocardiogram was performed. Scanning was performed from the parasternal, apical, subcostal, and suprasternal notch acoustic windows. Images were obtained using an [id number] cardiac ultrasound machine. Image quality was good. Study completion: The patient tolerated the procedure well. History: PMH: CHF. *CARDIAC ANATOMY* Left ventricle: The cavity size was normal. Wall thickness was increased in a pattern of mild LVH. Systolic function was hyperdynamic. The estimated ejection fraction was 65-70%. Findings consistent with diastolic dysfunction. Doppler parameters are consistent with high ventricular filling pressure. Aortic valve: Trileaflet. Doppler: There was no stenosis. There was trivial regurgitation. VTI ratio of LVOT to aortic valve: 0.59. Valve area (VTI): 1.9cm^2. Indexed valve area (VTI): 1.1cm^2/m^2. Peak velocity ratio of LVOT to aortic valve: 0.57. Valve area (Vmax): 1.8cm^2. Indexed valve area (Vmax): 1cm^2/m^2. Mean velocity ratio of LVOT to aortic valve: 0.62. Valve area (Vmean): 2cm^2. Indexed valve area (Vmean): 1.1cm^2/m^2. Mean gradient (S): 8.2mm Hg. Peak gradient (S): 20.5mm Hg. Aorta: Aortic root: The aortic root was normal in size. Ascending aorta: The ascending aorta was mildly dilated. Mitral valve: Doppler: There was no evidence for stenosis. There was mild to moderate regurgitation. Valve area by pressure half-time: 3.2cm^2. Indexed valve area by pressure half-time: 1.8cm^2/m^2. Peak gradient (D): 5mm Hg. Left atrium: The atrium was mildly dilated. Atrial septum: No defect or patent foramen ovale was identified. Right ventricle: The cavity size was normal. Wall thickness was normal. Systolic function was normal. Pulmonic valve: Doppler: There was no evidence for stenosis. There was no significant regurgitation. Peak gradient (S): 4.9mm Hg. Tricuspid valve: Doppler: There was mild regurgitation. Pulmonary artery: Poorly visualized. Pulmonary systolic pressure was in the range of 30mm Hg to 40mm Hg. Right atrium: The atrium was normal in size. Pericardium: There was no pericardial effusion. Systemic veins: Inferior vena cava: Well visualized. The vessel was patent and normal in size. The respirophasic diameter changes were in the normal range (greater than or equal to 50%), consistent with normal central venous pressure. Baseline ECG: Normal sinus rhythm. Measurements Left ventricle Value 06/03/2016 Reference LV ID, ED, PLAX 5.1 cm 4.6 3.5 - 6.0 LV ID, ES, PLAX 3.1 cm 2.7 2.1 - 4.0 LV PW thickness, ED, PLAX 1.2 cm 1.3 LV end-diastolic volume, 105 ml 1-p A2C LV ejection fraction, 1-p 60 % 65 A2C LV end-diastolic volume, 109 ml 1-p A4C LV ejection fraction, 1-p 72 % 72 A4C LV e', lateral 0.085 m/sec LV E/e', lateral 13 LV e', medial 0.08 m/sec LV E/e', medial 14 LV e', average 0.082 m/sec LV E/e', average 14 Ventricular septum Value 06/03/2016 Reference IVS thickness, ED, PLAX 1.2 cm 1.3 LVOT Value 06/03/2016 Reference LVOT ID, A-P 2.0 cm 2.0 LVOT area 3.2 cm^2 3 LVOT peak velocity, S 1.28 m/sec 1.18 LVOT mean velocity, S 0.82 m/sec LVOT VTI, S 24.3 cm 23.0 LVOT peak gradient, S 6.6 mm Hg 5.5 LVOT mean gradient, S 3.3 mm Hg 3.8 Stroke volume (SV), LVOT 77 ml DP Stroke index (SV/bsa), 44 ml/m^2 LVOT DP Aortic valve Value 06/03/2016 Reference Aortic valve peak 2.3 m/sec velocity, S Aortic valve mean 1.31 m/sec velocity, S Aortic valve VTI, S 41.0 cm Aortic mean gradient, S 8.2 mm Hg 8 Aortic peak gradient, S 20.5 mm Hg 17 VTI ratio, LVOT/AV 0.59 Aortic valve area, VTI 1.9 cm^2 1.9 Velocity ratio, peak, 0.57 0.61 LVOT/AV Aortic valve area, peak 1.8 cm^2 1.7 velocity Velocity ratio, mean, 0.62 LVOT/AV Aortic valve area, mean 2 cm^2 velocity Aortic valve area/bsa, 1.1 cm^2/m^2 mean velocity Aorta Value 06/03/2016 Reference Aortic root ID, ED 3.5 cm 3.5 Ascending aorta ID, A-P, S 3.5 cm 3.4 Left atrium Value 06/03/2016 Reference LA ID, A-P, ES 3.3 cm LA ID/bsa, A-P 1.9 cm/m^2 <=2.2 LA area, ES, A4C 19.1 cm^2 8.8 - 23.4 LA area, ES, A2C 21 cm^2 LA volume/bsa, ES, 1-p A4C 35 ml/m^2 LA volume, ES, 2-p 60 ml LA volume/bsa, ES, 2-p 34 ml/m^2 LA/aortic root ratio 0.95 1.06 Mitral valve Value 06/03/2016 Reference Mitral E-wave peak 1.12 m/sec 0.72 velocity Mitral A-wave peak 1.25 m/sec 1.08 velocity Mitral deceleration time (H) 238 ms 150 - 230 Mitral pressure half-time 69 ms 76 Mitral peak gradient, D 5 mm Hg Mitral E/A ratio, peak 0.9 0.66 Mitral valve area, PHT, DP 3.2 cm^2 2.9 Mitral peak LV-LA 176.8 mm Hg 50.2 gradient, S Mitral maximal regurg 6.65 m/sec 3.54 velocity, PISA Mitral regurg VTI, PISA 225.8 cm Pulmonary veins Value 06/03/2016 Reference Pulmonary vein peak 0.7 m/sec 0.42 velocity, S Pulmonary vein peak 0.54 m/sec 0.36 velocity, D Pulmonary vein velocity 1.29 1.16 ratio, peak, S/D Pulmonary vein A-wave 0.54 m/sec 0.7 reversal peak velocity Pulmonary vein A-wave 156 ms 124 reversal duration Tricuspid valve Value 06/03/2016 Reference Tricuspid regurg peak 3 m/sec 2.6 velocity Tricuspid peak RV-RA 36.8 mm Hg 26.9 gradient Right atrium Value 06/03/2016 Reference RA area, ES, A4C 10.7 cm^2 8.3 - 19.5 Pulmonic valve Value 06/03/2016 Reference Pulmonic peak gradient, S 4.9 mm Hg Legend: (L) and (H) daija values outside specified reference range. I have personally reviewed the images and have reviewed and edited the reported findings. Electronically signed by Herminio Ambrocio MD 03/26/2018 10:18
[2018-03-26] MEDS: Pantoprazole 40 MG VIAL IVP ×2 (09:05→20:17)
[2018-03-26] MEDS: Metoprolol 12.5 MG TAB PO ×2 (09:05→20:16)
[2018-03-26] MEDS: Furosemide 20 MG/2 ML VIAL IVP ×2 (09:05→15:58)
[2018-03-26] MEDS: Sucralfate 1 GM TAB PO ×3 (09:06→21:57)
[2018-03-26] MEDS: Potassium Chloride 10 MEQ CAPCR 20 MEQ PO ×2 (09:06→20:16)
[2018-03-26] MEDS: Nadolol 40 MG TAB 10 MG PO (09:06)
--- NOTE | 2018-03-26 11:12 | NUR.NOTE ---
pt is NPO fot noon hida scan will give PO K replacement once pt is back from text. Nursing Note:
--- NOTE | 2018-03-26 13:00 | DI.NM_ITS ---
SYMPTOMS/DIAGNOSIS: CHOLELITHIASIS, STONE AT GALLBLADDER NECK HEPATOBILIARY SCAN: The patient received 5.1 mCi of technetium 99m mebrofenin and examination was performed according to protocol. The liver, bile ducts, gallbladder and small bowel were visualized at the appropriate time intervals. IMPRESSION: Normal hepatobiliary scan.
[2018-03-26] MEDS: Potassium Chloride 20 MEQ TABCR 40 MEQ PO (14:54)
--- NOTE | 2018-03-26 15:58 | NUR.NOTE ---
Pt has temp of 38.3 charge nurse aware. Will continue to monitor. Pt gets scheduled IV Tylenol Nursing Note:
--- NOTE | 2018-03-26 16:38 | PGE_ITS ---
Date of Service Date of service: 03/26/18 Time of Service: 14:15 Assessment and Plan (1) Pancytopenia: Current visit: Yes Status: Acute (2) Splenomegaly: Current visit: Yes Status: Chronic A\\ Splenomegally and tenderness on palpation P\\ Viral studies pending (3) Cirrhosis: Current visit: Yes Status: Chronic A\\ Patient with history of SILVESTRE now with cirrhosis, portal hypertension and ascitis. Qualifiers: Hepatic cirrhosis type: unspecified hepatic cirrhosis Ascites presence: with ascites Qualified Code(s): K74.60 - Unspecified cirrhosis of liver; R18.8 - Other ascites (4) Ascites: Current visit: Yes Status: Acute A\\ Not enough ascitis for us to be able to tap for cultures. Qualifiers: Ascites type: other type Qualified Code(s): R18.8 - Other ascites (5) Portal hypertension: Current visit: Yes Status: Acute (6) Cholelithiasis: Current visit: Yes Status: Acute A\\ Cholelithiasis on CT scan HIDA scan normal P\\ No need for Cholecystectomy. We will sign off the patient for now. Please let us know if you need my assistance again. Qualifiers: Cholelithiasis location: gallbladder Cholecystitis presence: without cholecystitis Biliary obstruction: without biliary obstruction Qualified Co de(s): K80.20 - Calculus of gallbladder without cholecystitis without obstruction Subjective Interval history since last seen: Mrs. Nix is doing OK. Complains still of LUQ pain, RLQ and LLQ pain. No N/V. Admitted with diffuse abdominal pain. Noted to have UA with possible infection? pylonephritis. Patients care transferred to Medicine from Surgery. Patient continued to complain of pain and had continued fevers. CT scan was done which showed cirrhosis, splenomegally, portal hypertensionand gallstones. Normal Gallbladder otherwise. There is also ascitis. This has been discussed with the patient. Exam Resp Effort & Inspection: normal respiratory effort Auscultation: clear to auscultation bilaterally Cardio Rate: regular rate Rhythm: regular rhythm Heart Sounds: no gallops, no murmurs and no rubs GI Inspection: normal to inspection Palpation: soft, hepatomegaly, splenomegaly and tender in the LLQ Auscultation: normal bowel sounds Objective Objective Clinical Data: Abnormal lab results 03/26/18 03/26/18 03/26/18 Range/Units 07:00 07:00 07:00 WBC 2.28 L (4.4-10.8) k/cumm RBC 3.81 L (4.00-5.20) m/cumm Hgb 8.7 L (12.0-15.5) g/dL Hct 28.8 L (36.0-46.0) % MCV 75.6 L (80-95) fL MCH 22.8 L (27.0-33.0) pg MCHC 30.2 L (32.0-36.0) g/dL RDW 23.3 H (11.7-14.6) % Plt Count 120 L (130-400) x1000/uL Absolute Lymphocytes 0.48 L (1.2-3.4) k/cumm Potassium 3.2 L (3.5-5.1) mmol/L Glucose 139 H (70-100) mg/dL Calcium 7.8 L (8.5-10.1) mg/dL Total Bilirubin 1.1 H (0.2-1.0) mg/dL Conjugated Bilirubin 0.66 H (0.00-0.20) mg/dL Total Protein 5.8 L (6.4-8.2) g/dL Albumin 2.4 L (3.4-5.0) g/dL Vital Signs Temperature 101.3 F H 03/26/18 15:35 Temperature Source Tympanic 03/26/18 15:35 Pulse 85 03/26/18 15:35 Pulse Rhythm Regular 03/26/18 10:38 Respiratory Rate 28 H 03/26/18 15:35 Respiratory Effort 03/26/18 10:38 Respiratory Depth Normal 03/26/18 10:38 Respiratory Pattern Normal 03/26/18 10:38 Blood Pressure 166/79 H 03/26/18 15:35 Pulse Oximetry 96 03/26/18 15:35 Oxygen Delivery Method Room Air 03/26/18 15:35 Oxygen Flow Rate 0 03/26/18 15:35 Pain Level 0 03/26/18 11:35 Comment 03/25/18 19:35 Intake & Output 03/25/18 03/26/18 03/26/18 23:59 11:59 23:59 Intake Total 2473.333 / 3510.000 920 / 920 Output Total 1100 / 2000 900 / 2000 Balance 2473.333 / 2710.000 -180 / -1080 -900 / -1080 Intake: IV 1183.333 / 1980.000 560 / 560 Oral 1030 / 1270 360 / 360 Blood Product 260 / 260 Rbc Leuko Reduced Unit 260 / 260 [id number] Output: Urine 1099 Other: Urine Color Straw Straw Yellow Urine Appearance Clear Clear Clear Urine Odor None Comment pt has been getting up AD SABRA to void not hat in toilet. placed at this time. Stool Size Moderate Stool Characteristics Soft Liquid Green Voiding Methods Toilet Toilet Toilet Laboratory Results WBC 2.28 k/cumm (4.4-10.8) L 03/26/18 07:00 RBC 3.81 m/cumm (4.00-5.20) L 03/26/18 07:00 Hgb 8.7 g/dL (12.0-15.5) L 03/26/18 07:00 Hct 28.8 % (36.0-46.0) L 03/26/18 07:00 MCV 75.6 fL (80-95) L 03/26/18 07:00 MCH 22.8 pg (27.0-33.0) L 03/26/18 07:00 MCHC 30.2 g/dL (32.0-36.0) L 03/26/18 07:00 RDW 23.3 % (11.7-14.6) H 03/26/18 07:00 Plt Count 120 x1000/uL (130-400) L 03/26/18 07:00 MPV 10.6 fL (8.0-11.0) 03/26/18 07:00 Immature Gran % 0.4 03/26/18 07:00 Neutrophils % 67.5 03/26/18 07:00 Lymphocytes % 21.1 03/26/18 07:00 Monocytes % 10.1 03/26/18 07:00 Eosinophils % 0.9 03/26/18 07:00 Basophils % 0.0 03/26/18 07:00 Absolute Neutrophils 1.54 k/cumm (1.2-6.7) 03/26/18 07:00 Band Neutrophils 4.0 % 03/24/18 04:55 Absolute Lymphocytes 0.48 k/cumm (1.2-3.4) L 03/26/18 07:00 Absolute Monocytes 0.23 k/cumm (0.11-0.7) 03/26/18 07:00 Absolute Eosinophils 0.02 k/cumm (0.0-0.7) 03/26/18 07:00 Absolute Basophils 0.00 k/cumm (0.0-0.2) 03/26/18 07:00 Metamyelocytes 1.0 % 03/23/18 07:07 Nucleated RBCs 1 /100WBC 03/21/18 14:27 Differential Comment Rbc morph reviewed 03/25/18 07:00 RBC Morphology See below 03/24/18 04:55 Polychromasia Present 03/24/18 04:55 Hypochromasia 2+ 03/25/18 07:00 Poikilocytosis 1+ 03/24/18 04:55 Basophilic Stippling 1+ 03/25/18 07:00 Anisocytosis 3+ 03/25/18 07:00 Microcytosis 3+ 03/25/18 07:00 Ovalocytes 2+ 03/25/18 07:00 ESR 60 MM/HR (0-30) H 03/21/18 14:27 PT 11.0 sec (9.3-11.0) 03/25/18 12:45 INR 1.1 (0.9-1.1) 03/25/18 12:45 APTT 25.0 sec (21.0-31.4) 03/25/18 12:45 D-Dimer 3176 ng/mlFEU (<500) H 03/24/18 06:00 Heparin Anti-Xa Level 0.16 IU/mL 03/23/18 10:55 Sample Site Right radial 03/24/18 10:57 pCO2 30 mmHg (34-47) L 03/24/18 10:57 pO2 93 mmHg (83-108) 03/24/18 10:57 O2 Saturation 99 % (94-98) H 03/24/18 10:57 ABG pH 7.45 (7.35-7.45) 03/24/18 10:57 ABG HCO3 21 mmol/L (22-28) L 03/24/18 10:57 ABG Total CO2 20 mmol/L (22-29) L 03/24/18 10:57 ABG Base Excess -3.4 mmol/L (-3-3) L 03/24/18 10:57 Oxygen Liter Flow 2 L 03/24/18 10:57 Sodium 138 mmol/L (136-145) 03/26/18 07:00 Potassium 3.2 mmol/L (3.5-5.1) L 03/26/18 07:00 Chloride 102 mmol/L (98-107) 03/26/18 07:00 Carbon Dioxide 30.1 mmol/L (21.0-32.0) 03/26/18 07:00 Anion Gap 5.9 mmol/L (3-11) 03/26/18 07:00 BUN 10 mg/dL (7-18) 03/26/18 07:00 Creatinine 0.67 mg/dL (0.55-1.02) 03/26/18 07:00 Estimated GFR/1.73 m2 >= 60.00 (mL/min/1.73m2) 03/26/18 07:00 Glucose 139 mg/dL (70-100) H 03/26/18 07:00 Lactate 1.4 mmol/L (0.6-1.4) 03/23/18 07:07 Calcium 7.8 mg/dL (8.5-10.1) L 03/26/18 07:00 Magnesium 1.8 mg/dL (1.8-2.4) 03/26/18 07:00 Iron 29 ug/dL (50-175) L 03/22/18 16:10 TIBC 323 ug/dL (250-450) 03/22/18 16:10 Transferrin Cancelled 03/22/18 08:25 Transferrin % Sat 9 % (15-50) L 03/22/18 16:10 Ferritin 34 ng/mL (8-388) 03/22/18 06:58 Total Bilirubin 1.1 mg/dL (0.2-1.0) H 03/26/18 07:00 Conjugated Bilirubin 0.66 mg/dL (0.00-0.20) H 03/26/18 07:00 AST 37 U/L (15-37) 03/26/18 07:00 ALT 27 U/L (12-78) 03/26/18 07:00 Alkaline Phosphatase 113 U/L (46-116) 03/26/18 07:00 Creatine Kinase 64 U/L (26-192) 03/23/18 07:07 C-Reactive Protein 3.35 mg/dL (0.0-0.3) H 03/21/18 14:27 Total Protein 5.8 g/dL (6.4-8.2) L 03/26/18 07:00 Albumin 2.4 g/dL (3.4-5.0) L 03/26/18 07:00 Lipase 341 U/L (73-393) 03/25/18 07:00 Urine Color Yellow (Yellow) 03/24/18 09:50 Urine Clarity Clear 03/24/18 09:50 Urine pH 5.5 (5-8) 03/24/18 09:50 Ur Specific [place] 1.015 (1.005-1.025) 03/24/18 09:50 Urine Protein Negative mg/dL (Negative) 03/24/18 09:50 Urine Ketones 15 mg/dL (Negative) H 03/24/18 09:50 Urine Blood Negative (Negative) 03/24/18 09:50 Urine Nitrite Negative (Negative) 03/24/18 09:50 Urine Bilirubin Negative (Negative) 03/24/18 09:50 Urine Urobilinogen 0.2 EU/dL (Up TO 0.2) 03/24/18 09:50 Ur Leukocyte Esterase Negative (Negative) 03/24/18 09:50 Urine RBC Not Applicable 03/21/18 15:25 Urine WBC HPF (0-5) 03/21/18 15:25 Ur Epithelial Cells Not Applicable 03/21/18 15:25 Urine Crystals Not Applicable 03/21/18 15:25 Urine Bacteria Packed HPF (Negative) 03/21/18 15:25 Urine Mucus Not Applicable 03/21/18 15:25 Ur Culture Indicated? Yes 03/21/18 15:25 Urine Glucose Negative mg/dL (Negative) 03/24/18 09:50 Vancomycin Trough 11.0 ug/mL (10.0-20.0) 03/25/18 09:10 Monoscreen Negative (Negative) 03/24/18 04:55 Path Cons Comment 03/21/18 14:27 Patient ABO/Rh A Positive 03/25/18 11:47 Antibody Screen Negative 03/25/18 11:47 Crossmatch See Detail 03/25/18 11:47 Reaction Clerical Check No clerical errors 03/25/18 16:25 Clerical Work Check Cancelled 03/24/18 09:44 Pre-Trans Blood Type A Positive 03/25/18 16:25 Pre-Trans Bld Appearanc No hemolysis/icterus 03/25/18 16:25 Pre-Trans VINNY Not Applicable 03/25/18 16:25 Post-Trans Blood Type A Positive 03/25/18 16:25 Post-Trans Spec Appear No hemolysis/icterus 03/25/18 16:25 Post-Trans VINNY Negative 03/25/18 16:25 Reaction Pathol Review Cancelled 03/24/18 09:44
--- NOTE | 2018-03-26 19:38 | W.PM.PROGNOT ---
Date of Service Date of service: 03/26/18 Time of Service: 10:15 Assessment and Plan (1) Sepsis: Current visit: Yes Status: Acute Exact source unclear, and at this point a viral process, a tick borne illness or a malignancy remain on differential. We have ruled out a UTI with a negative repeat UA. HIDA scan is negative. SBP not impossible, though pain is minimal. There is not enough ascites for a paracenthesis. One would expect that the patient would have defervesced by now if the fevers were due to SBP. Await viral studies, tick studies. Will reach out to [facility] [place] ID once these are back for more guidance. (2) Anemia: Current visit: Yes Status: Acute Hem positive with evidence of iron deficiency, likely due to slow GI bleeding, s/p transfusion. Has a history of cirrhosis. INR wnl, but could have varices - EGD is high risk at our facility and would likely need to have this done by GI at a tertiary care facility. Continue PPI. Qualifiers: Anemia type: unspecified type Iron deficiency anemia type: Vitamin B12 deficiency anemia type: Folate deficiency anemia type: Bone marrow failure anemia type: Hemolytic anemia type: Other causes of anemia: Chronic kidney disease stage: Qualified Code(s): D64.9 - Anemia, unspecified (3) DERRELL (acute kidney injury): Current visit: Yes Status: Resolved Will need to be monitored closely now that the patient has received IV contrast. Requiring diuretics (4) Supraventricular tachycardia, paroxysmal: Current visit: No Status: Chronic Not a part of our clinical picture today (5) Diabetes mellitus type 2, controlled, without complications: Current visit: No Status: Chronic No change in tx (6) COPD (chronic obstructive pulmonary disease): Current visit: No Status: Chronic Wheezing resolved (7) Essential hypertension: Current visit: No Status: Chronic patient started on a small dose of nadolol (8) Cholelithiasis: Current visit: Yes Status: Chronic HIDA scan negative for cholecystitis. Likely an incidental finding. Qualifiers: Cholelithiasis location: gallbladder Cholecystitis presence: without cholecystitis Cholangitis presence: Cholecystitis acuity: Cholangitis acuity: Biliary obstruction: without biliary obstruction Qualified Code(s): K80.20 - Calculus of gallbladder without cholecystitis without obstruction (9) SOB (shortness of breath): Current visit: Yes Status: Resolved Likely due to fluid overload. Continue gentle diuresis. (10) Non-alcoholic fatty liver disease: Current visit: No Status: Chronic Likely the etiology of the cirrhosis seen on CT. Await hepatitis studies (11) Gastroesophageal reflux disease: Current visit: No Status: Chronic PPI + carafate (12) DVT prophylaxis: Current visit: Yes Status: Acute Chemical DVT prophylaxis is contraindicated due to bleeding/anemia. Continue SCD's + CAREN's (13) Portal hypertension: Current visit: Yes Status: Acute likely due to cirrhosis. Continue nadolol, monitoring for bronchospasm. (14) Ascites: Current visit: Yes Status: Acute Start aldactone if Cr remains wnl tomorrow on labs. Per ID at [facility] [place], Paracenthesis impossible at this time as the amount of ascites is minimal. Qualifiers: Ascites type: other type Qualified Code(s): R18.8 - Other ascites (15) Cirrhosis: Current visit: Yes Status: Chronic New diagnosis. Etiology is, most likely, fatty liver disease/SILVESTRE. Hepatitis studies are pending Qualifiers: Hepatic cirrhosis type: unspecified hepatic cirrhosis Ascites presence: with ascites Qualified Code(s): K74.60 - Unspecified cirrhosis of liver; R18.8 - Other ascites (16) Splenomegaly: Current visit: Yes Status: Chronic Likely due to cirrhosis, but could also be a part of a viral process (mono, etc) or lymphoma (much less likely). Read discussion above (17) Pancytopenia: Current visit: Yes Status: Acute Discussed with heme (Dr Goodwin) at [facility] [place], who feels that pancytopenia is possibly due to zosyn, possibly due to cirrhosis/sepsis, or a viral process, and anemia has a GI bleed component. Lymphoma is very low on differential as WBC and platelets seem to be improving. Subjective Interval history since last seen: The patient feels better today. States she is not short of breath, her abdominal discomfort is minimal, denies dizziness, chest pain, nausea, vomiting. Continues to spike fevers. Exam Narrative Exam Narrative: General: Middle aged female, appears mildly jaundiced, not tachypneic, sitting up in a chair HEENT: EOMI, MMM Heart: RRR, no m/r/g Lungs: clear to auscultation bilaterally GI: abdomen soft, mild ascites, splenomegaly Extremities; no e/c/c BLE's Objective Objective Clinical Data: Abnormal lab results 03/26/18 03/26/18 03/26/18 Range/Units 07:00 07:00 07:00 WBC 2.28 L (4.4-10.8) k/cumm RBC 3.81 L (4.00-5.20) m/cumm Hgb 8.7 L (12.0-15.5) g/dL Hct 28.8 L (36.0-46.0) % MCV 75.6 L (80-95) fL MCH 22.8 L (27.0-33.0) pg MCHC 30.2 L (32.0-36.0) g/dL RDW 23.3 H (11.7-14.6) % Plt Count 120 L (130-400) x1000/uL Absolute Lymphocytes 0.48 L (1.2-3.4) k/cumm Potassium 3.2 L (3.5-5.1) mmol/L Glucose 139 H (70-100) mg/dL Calcium 7.8 L (8.5-10.1) mg/dL Total Bilirubin 1.1 H (0.2-1.0) mg/dL Conjugated Bilirubin 0.66 H (0.00-0.20) mg/dL Total Protein 5.8 L (6.4-8.2) g/dL Albumin 2.4 L (3.4-5.0) g/dL Vital Signs Temperature 37.9 C H 03/26/18 16:59 Temperature Source Tympanic 03/26/18 15:35 Pulse 85 03/26/18 15:35 Pulse Rhythm Regular 03/26/18 10:38 Respiratory Rate 28 H 03/26/18 15:35 Respiratory Effort 03/26/18 10:38 Respiratory Depth Normal 03/26/18 10:38 Respiratory Pattern Normal 03/26/18 10:38 Blood Pressure 166/79 H 03/26/18 15:35 Pulse Oximetry 96 03/26/18 15:35 Oxygen Delivery Method Room Air 03/26/18 15:35 Oxygen Flow Rate 0 03/26/18 15:35 Pain Level 0 03/26/18 11:35 Comment 03/25/18 19:35 Intake & Output 03/25/18 03/26/18 03/26/18 23:59 11:59 23:59 Intake Total 2473.333 / 3510.000 920 / 1620 700 / 1620 Output Total 1100 / 4100 3000 / 4100 Balance 2473.333 / 2710.000 -180 / -2480 -2300 / -2480 Intake: IV 1183.333 / 1980.000 560 / 1010 450 / 1010 Oral 1030 / 1270 360 / 610 250 / 610 Blood Product 260 / 260 Rbc Leuko Reduced Unit 260 / 260 [id number] Output: Urine 1100 / 4100 3000 / 4100 Other: Urine Color Straw Straw Yellow Urine Appearance Clear Clear Clear Urine Odor None Comment pt has been getting up AD SABRA to void not hat in toilet. placed at this time. Stool Size Moderate Moderate Stool Characteristics Soft Soft Liquid Brown Green Voiding Methods Toilet Toilet Toilet Laboratory Results WBC 2.28 k/cumm (4.4-10.8) L 03/26/18 07:00 RBC 3.81 m/cumm (4.00-5.20) L 03/26/18 07:00 Hgb 8.7 g/dL (12.0-15.5) L 03/26/18 07:00 Hct 28.8 % (36.0-46.0) L 03/26/18 07:00 MCV 75.6 fL (80-95) L 03/26/18 07:00 MCH 22.8 pg (27.0-33.0) L 03/26/18 07:00 MCHC 30.2 g/dL (32.0-36.0) L 03/26/18 07:00 RDW 23.3 % (11.7-14.6) H 03/26/18 07:00 Plt Count 120 x1000/uL (130-400) L 03/26/18 07:00 MPV 10.6 fL (8.0-11.0) 03/26/18 07:00 Immature Gran % 0.4 03/26/18 07:00 Neutrophils % 67.5 03/26/18 07:00 Lymphocytes % 21.1 03/26/18 07:00 Monocytes % 10.1 03/26/18 07:00 Eosinophils % 0.9 03/26/18 07:00 Basophils % 0.0 03/26/18 07:00 Absolute Neutrophils 1.54 k/cumm (1.2-6.7) 03/26/18 07:00 Band Neutrophils 4.0 % 03/24/18 04:55 Absolute Lymphocytes 0.48 k/cumm (1.2-3.4) L 03/26/18 07:00 Absolute Monocytes 0.23 k/cumm (0.11-0.7) 03/26/18 07:00 Absolute Eosinophils 0.02 k/cumm (0.0-0.7) 03/26/18 07:00 Absolute Basophils 0.00 k/cumm (0.0-0.2) 03/26/18 07:00 Metamyelocytes 1.0 % 03/23/18 07:07 Nucleated RBCs 1 /100WBC 03/21/18 14:27 Differential Comment Rbc morph reviewed 03/25/18 07:00 RBC Morphology See below 03/24/18 04:55 Polychromasia Present 03/24/18 04:55 Hypochromasia 2+ 03/25/18 07:00 Poikilocytosis 1+ 03/24/18 04:55 Basophilic Stippling 1+ 03/25/18 07:00 Anisocytosis 3+ 03/25/18 07:00 Microcytosis 3+ 03/25/18 07:00 Ovalocytes 2+ 03/25/18 07:00 ESR 60 MM/HR (0-30) H 03/21/18 14:27 PT 11.0 sec (9.3-11.0) 03/25/18 12:45 INR 1.1 (0.9-1.1) 03/25/18 12:45 APTT 25.0 sec (21.0-31.4) 03/25/18 12:45 D-Dimer 3176 ng/mlFEU (<500) H 03/24/18 06:00 Heparin Anti-Xa Level 0.16 IU/mL 03/23/18 10:55 Sample Site Right radial 03/24/18 10:57 pCO2 30 mmHg (34-47) L 03/24/18 10:57 pO2 93 mmHg (83-108) 03/24/18 10:57 O2 Saturation 99 % (94-98) H 03/24/18 10:57 ABG pH 7.45 (7.35-7.45) 03/24/18 10:57 ABG HCO3 21 mmol/L (22-28) L 03/24/18 10:57 ABG Total CO2 20 mmol/L (22-29) L 03/24/18 10:57 ABG Base Excess -3.4 mmol/L (-3-3) L 03/24/18 10:57 Oxygen Liter Flow 2 L 03/24/18 10:57 Sodium 138 mmol/L (136-145) 03/26/18 07:00 Potassium 3.2 mmol/L (3.5-5.1) L 03/26/18 07:00 Chloride 102 mmol/L (98-107) 03/26/18 07:00 Carbon Dioxide 30.1 mmol/L (21.0-32.0) 03/26/18 07:00 Anion Gap 5.9 mmol/L (3-11) 03/26/18 07:00 BUN 10 mg/dL (7-18) 03/26/18 07:00 Creatinine 0.67 mg/dL (0.55-1.02) 03/26/18 07:00 Estimated GFR/1.73 m2 >= 60.00 (mL/min/1.73m2) 03/26/18 07:00 Glucose 139 mg/dL (70-100) H 03/26/18 07:00 Lactate 1.4 mmol/L (0.6-1.4) 03/23/18 07:07 Calcium 7.8 mg/dL (8.5-10.1) L 03/26/18 07:00 Magnesium 1.8 mg/dL (1.8-2.4) 03/26/18 07:00 Iron 29 ug/dL (50-175) L 03/22/18 16:10 TIBC 323 ug/dL (250-450) 03/22/18 16:10 Transferrin Cancelled 03/22/18 08:25 Transferrin % Sat 9 % (15-50) L 03/22/18 16:10 Ferritin 34 ng/mL (8-388) 03/22/18 06:58 Total Bilirubin 1.1 mg/dL (0.2-1.0) H 03/26/18 07:00 Conjugated Bilirubin 0.66 mg/dL (0.00-0.20) H 03/26/18 07:00 AST 37 U/L (15-37) 03/26/18 07:00 ALT 27 U/L (12-78) 03/26/18 07:00 Alkaline Phosphatase 113 U/L (46-116) 03/26/18 07:00 Creatine Kinase 64 U/L (26-192) 03/23/18 07:07 C-Reactive Protein 3.35 mg/dL (0.0-0.3) H 03/21/18 14:27 Total Protein 5.8 g/dL (6.4-8.2) L 03/26/18 07:00 Albumin 2.4 g/dL (3.4-5.0) L 03/26/18 07:00 Lipase 341 U/L (73-393) 03/25/18 07:00 Urine Color Yellow (Yellow) 03/24/18 09:50 Urine Clarity Clear 03/24/18 09:50 Urine pH 5.5 (5-8) 03/24/18 09:50 Ur Specific [place] 1.015 (1.005-1.025) 03/24/18 09:50 Urine Protein Negative mg/dL (Negative) 03/24/18 09:50 Urine Ketones 15 mg/dL (Negative) H 03/24/18 09:50 Urine Blood Negative (Negative) 03/24/18 09:50 Urine Nitrite Negative (Negative) 03/24/18 09:50 Urine Bilirubin Negative (Negative) 03/24/18 09:50 Urine Urobilinogen 0.2 EU/dL (Up TO 0.2) 03/24/18 09:50 Ur Leukocyte Esterase Negative (Negative) 03/24/18 09:50 Urine RBC Not Applicable 03/21/18 15:25 Urine WBC HPF (0-5) 03/21/18 15:25 Ur Epithelial Cells Not Applicable 03/21/18 15:25 Urine Crystals Not Applicable 03/21/18 15:25 Urine Bacteria Packed HPF (Negative) 03/21/18 15:25 Urine Mucus Not Applicable 03/21/18 15:25 Ur Culture Indicated? Yes 03/21/18 15:25 Urine Glucose Negative mg/dL (Negative) 03/24/18 09:50 Vancomycin Trough 11.0 ug/mL (10.0-20.0) 03/25/18 09:10 Monoscreen Negative (Negative) 03/24/18 04:55 Path Cons Comment 03/21/18 14:27 Patient ABO/Rh A Positive 03/25/18 11:47 Antibody Screen Negative 03/25/18 11:47 Crossmatch See Detail 03/25/18 11:47 Reaction Clerical Check No clerical errors 03/25/18 16:25 Clerical Work Check Cancelled 03/24/18 09:44 Pre-Trans Blood Type A Positive 03/25/18 16:25 Pre-Trans Bld Appearanc No hemolysis/icterus 03/25/18 16:25 Pre-Trans VINNY Not Applicable 03/25/18 16:25 Post-Trans Blood Type A Positive 03/25/18 16:25 Post-Trans Spec Appear No hemolysis/icterus 03/25/18 16:25 Post-Trans VINYN Negative 03/25/18 16:25 Reaction Pathol Review Cancelled 03/24/18 09:44 HIDA scan: Normal hepatobiliary scan. Echo: 1. Left ventricle: The cavity size was normal. Wall thickness was increased in a pattern of mild LVH. Systolic function was hyperdynamic. The estimated ejection fraction was 65-70%. Findings consistent with diastolic dysfunction. Doppler parameters are consistent with high ventricular filling pressure. 2. Aortic valve: There was trivial regurgitation. 3. Mitral valve: There was mild to moderate regurgitation. 4. Left atrium: The atrium was mildly dilated. 5. Right ventricle: The cavity size was normal. Wall thickness was normal. Systolic function was normal. 6. Atrial septum: No defect or patent foramen ovale was identified. 7. Pulmonary arteries: Pulmonary systolic pressure was in the range of 30mm Hg to 40mm Hg. 8. Inferior vena cava: The vessel was patent and normal in size. The respirophasic diameter changes were in the normal range (greater than or equal to 50%), consistent with normal central venous pressure.
[2018-03-26] MEDS: Pravastatin 20 MG TAB 10 MG PO (21:57)
[2018-03-27] VITALS (9 sets, daily range): BP systolic 114–144; BP diastolic 59–74; PULSE 62–82; RESP 16–20; TEMP 36.3–38.4; O2SAT 94–96
[2018-03-27] MEDS: Normal Saline Flush 10 ML SYR IVP ×6 (03:56→20:02)
[2018-03-27] MEDS: ACETAMINOPHEN 1,000 MG/100 ML BTL 400 MG IVPB ×3 (03:57→20:02)
[2018-03-27] MEDS: VANCOMYCIN 1,000 MG in Normal Saline 250 ML 250 MG IV ×2 (04:19→18:11)
[2018-03-27 07:23] LABS: Abs Immature Grans 0.01 k/cumm (0.0-0.09); Absolute Basophil Count 0.01 k/cumm (0.0-0.2); Absolute Eosinophil Count 0.05 k/cumm (0.0-0.7); Absolute Lymphocyte Count 0.57 k/cumm (1.2-3.4); Absolute Neutrophil Count 2.47 k/cumm (1.2-6.7); Basophils % 0.3; Eosinophils % 1.5; HCT 29.9 % (36.0-46.0); HGB 8.9 g/dL (12.0-15.5); Immature Grans % 0.3; Lymphocytes % 16.7; Mean Corp. HGB Concentration 29.8 g/dL (32.0-36.0); Mean Corpuscular Hemoglobin 22.7 pg (27.0-33.0); Mean Corpuscular Volume 76.3 fL (80-95); Mean Platelet Volume 10.8 fL (8.0-11.0); Monocytes % 8.8; Neutrophils % 72.4; Platelet Count 163 x1000/uL (130-400); RBC 3.92 m/cumm (4.00-5.20); RBC Distribution Width 23.6 % (11.7-14.6); White Blood Cell Count 3.41 k/cumm (4.4-10.8)
[2018-03-27 07:50] LABS: ALT 30 U/L (12-78); AST 38 U/L (15-37); Albumin 2.4 g/dL (3.4-5.0); Alkaline Phosphatase 128 U/L (46-116); Anion Gap 7.4 mmol/L (3-11); BUN 11 mg/dL (7-18); Bilirubin, Direct 0.58 mg/dL (0.00-0.20); Bilirubin, Total 1.1 mg/dL (0.2-1.0); CO2 29.6 mmol/L (21.0-32.0); CREATININE 0.74 mg/dL (0.55-1.02); Calcium 7.9 mg/dL (8.5-10.1); Chloride 103 mmol/L (98-107); Glucose 155 mg/dL (70-100); Magnesium 1.8 mg/dL (1.8-2.4); Potassium 3.9 mmol/L (3.5-5.1); Sodium 140 mmol/L (136-145); Total Protein 5.9 g/dL (6.4-8.2)
--- NOTE | 2018-03-27 08:00 | RESPIRATORY ---
Patient wore oxygen on and off throughout the night
--- NOTE | 2018-03-27 08:42 | CMPROGNOTE_ITS ---
Care Management Progress Note S/O: Alayna was sitting in her chair when CM met with her. She reported managing the length of her current hospitalization well and stated when you get to be this age you realize things just happen. She reported being interested in working on her AD at this time and shared that her , Seymour would be coming around 1130 today and requested a document for him as well. Alayna and Seymour will review and CM will support them in completing the documents later today. Alayna continues to have a work up for symptoms including ongoing fevers. No change to overall plan. A: 67 year old female admitted to [facility] 03/21/17 for Pyelonephritis P: Alayna remains on telemetry, IVF and IV ABX at this time. CM will continue and monitor clinical status for discharge planning considerations. Anticipate Alayna will return home with no additional services at this time and will have outpatient follow up with surgical services of endoscopy colonoscopy.
[2018-03-27 08:58] LABS: Haptoglobin 150 mg/dL (32-197)
[2018-03-27] MEDS: Pantoprazole 40 MG VIAL IVP ×2 (09:01→20:02)
[2018-03-27] MEDS: Furosemide 20 MG/2 ML VIAL IVP ×2 (09:02→15:42)
[2018-03-27] MEDS: Potassium Chloride 10 MEQ CAPCR 20 MEQ PO (09:02)
[2018-03-27] MEDS: Sucralfate 1 GM TAB PO ×4 (09:03→21:46)
[2018-03-27] MEDS: Nadolol 40 MG TAB 10 MG PO (09:03)
[2018-03-27] MEDS: Metoprolol 12.5 MG TAB PO ×2 (09:04→20:02)
[2018-03-27] MEDS: Insulin Aspart 300 UNITS/3 ML PEN SC ×2 (09:05→12:08)
[2018-03-27 11:43] LABS: Vancomycin, Trough 24.2 ug/mL (10.0-20.0)
[2018-03-27 12:15] LABS: Lyme Ab w Rflx to Lyme Confirm Negative
[2018-03-27] MEDS: DOXYCYCLINE 100 MG in Normal Saline 100 ML IVPB ×2 (12:28→23:27)
[2018-03-27 13:15] LABS: HBs Antibody, Qual Negative; HBs Antibody, Quant 3.5 mIU/mL; Hepatitis B Core Antibody Negative (NEGAT); Hepatitis B surface Ag Negative (NEGAT); Hepatitis C Ab w Rflx HCV PCR Negative (NEGAT)
[2018-03-27 15:38] LABS: CMV Ab, IgM Negative (Negative)
[2018-03-27] MEDS: Spironolactone 25 MG TAB PO (15:42)
--- NOTE | 2018-03-27 18:45 | PGE_ITS ---
Date of Service Date of service: 03/27/18 Time of Service: 15:00 Assessment and Plan (1) Sepsis: Current visit: Yes Status: Acute Viral process, a tick borne illness or a malignancy remain on differential. We have ruled out a UTI with a negative repeat UA. HIDA scan is negative. SBP not impossible, though pain is minimal. There is not enough ascites for a paracenthesis. One would expect that the patient would have defervesced by now if the fevers were due to SBP. Await viral studies, tick studies - initiated on doxycycline today. I feel that the illness in the grandchild is very likely connected to current presentatio - ?parvovirus B19 - will await viral studies. *The patient will still eventually need a cholecystectomy if becomes symptomatic due to having a stone in the gallbladder neck. (2) Anemia: Current visit: Yes Status: Acute Hem positive with evidence of iron deficiency, likely due to slow GI bleeding, s/p transfusion. Will repeat hemoccult. Has a history of cirrhosis. INR wnl, but could have varices - EGD is high risk at our facility and would likely need to have this done by GI at a tertiary care facility. Continue PPI. Qualifiers: Anemia type: unspecified type Iron deficiency anemia type: Vitamin B12 deficiency anemia type: Folate deficiency anemia type: Bone marrow failure anemia type: Hemolytic anemia type: Other causes of anemia: Chronic kidney disease stage: Qualified Code(s): D64.9 - Anemia, unspecified (3) DERRELL (acute kidney injury): Current visit: Yes Status: Resolved Monitor now that aldactone was added. (4) Supraventricular tachycardia, paroxysmal: Current visit: No Status: Chronic Not a part of our clinical picture today (5) Diabetes mellitus type 2, controlled, without complications: Current visit: No Status: Chronic No change in tx (6) COPD (chronic obstructive pulmonary disease): Current visit: No Status: Chronic Wheezing resolved (7) Essential hypertension: Current visit: No Status: Chronic patient started on a small dose of nadolol (8) Cholelithiasis: Current visit: Yes Status: Chronic HIDA scan negative for cholecystitis. Likely an incidental finding. Cholecystectomy electively as outpatient at a tertiary care faciliity. Qualifiers: Cholelithiasis location: gallbladder Cholecystitis presence: without cholecystitis Cholangitis presence: Cholecystitis acuity: Cholangitis acuity: Biliary obstruction: without biliary obstruction Qualified Code(s): K80.20 - Calculus of gallbladder without cholecystitis without obstruction (9) SOB (shortness of breath): Current visit: Yes Status: Resolved Likely due to fluid overload. Continue gentle diuresis. (10) Non-alcoholic fatty liver disease: Current visit: No Status: Chronic Likely the etiology of the cirrhosis seen on CT. Hepatitis studies negative. (11) Gastroesophageal reflux disease: Current visit: No Status: Chronic PPI + carafate (12) DVT prophylaxis: Current visit: Yes Status: Acute Chemical DVT prophylaxis is contraindicated due to bleeding/anemia. Continue SCD's + CAREN's (13) Portal hypertension: Current visit: Yes Status: Acute likely due to cirrhosis. Continue nadolol, monitoring for bronchospasm. (14) Ascites: Current visit: Yes Status: Acute Started aldactone. Paracenthesis impossible at this time as the amount of ascites is minimal. Qualifiers: Ascites type: other type Qualified Code(s): R18.8 - Other ascites (15) Cirrhosis: Current visit: Yes Status: Chronic New diagnosis. Etiology is, most likely, fatty liver disease/SILVESTRE. Hepatitis studies negative Qualifiers: Hepatic cirrhosis type: unspecified hepatic cirrhosis Ascites presence: with ascites Qualified Code(s): K74.60 - Unspecified cirrhosis of liver; R18.8 - Other ascites (16) Splenomegaly: Current visit: Yes Status: Chronic Likely due to cirrhosis, but could also be a part of a viral process (mono, etc) or lymphoma (much less likely). Read discussion above (17) Pancytopenia: Current visit: Yes Status: Acute Discussed with heme (Dr Goodwin) at [facility] [place], who feels that pancytopenia is possibly due to zosyn, possibly due to cirrhosis/sepsis, or a viral process, and anemia has a GI bleed component. Lymphoma is very low on differential as WBC and platelets seem to be improving. Subjective Interval history since last seen: The family informs me that one of their grandchildren whom they saw on recent travels had a viral illness with a rash on their cheeks. The patient states she feels better. Now, her abdominal discomfort is in LUQ. She denies dizziness, chest pain, shortness of breath, nausea, vomiting. Exam Narrative Exam Narrative: General: Middle aged female, appears mildly jaundiced, not tachypneic, sitting up in a chair HEENT: EOMI, MMM Heart: RRR, no m/r/g Lungs: clear to auscultation bilaterally GI: abdomen soft, mild ascites, splenomegaly Extremities; no e/c/c BLE's Objective Objective Clinical Data: Abnormal lab results 03/27/18 03/27/18 03/27/18 Range/Units 06:45 06:45 10:55 WBC 3.41 L D (4.4-10.8) k/cumm RBC 3.92 L (4.00-5.20) m/cumm Hgb 8.9 L (12.0-15.5) g/dL Hct 29.9 L (36.0-46.0) % MCV 76.3 L (80-95) fL MCH 22.7 L (27.0-33.0) pg MCHC 29.8 L (32.0-36.0) g/dL RDW 23.6 H (11.7-14.6) % Absolute Lymphocytes 0.57 L (1.2-3.4) k/cumm Glucose 155 H (70-100) mg/dL Calcium 7.9 L (8.5-10.1) mg/dL Total Bilirubin 1.1 H (0.2-1.0) mg/dL Conjugated Bilirubin 0.58 H (0.00-0.20) mg/dL AST 38 H (15-37) U/L Alkaline Phosphatase 128 H (46-116) U/L Total Protein 5.9 L (6.4-8.2) g/dL Albumin 2.4 L (3.4-5.0) g/dL Vancomycin Trough 24.2 H* (10.0-20.0) ug/mL Vital Signs Temperature 37.2 C 03/27/18 16:42 Temperature Source Tympanic 03/27/18 16:42 Pulse 66 03/27/18 16:42 Pulse Rhythm Regular 03/26/18 21:17 Respiratory Rate 20 03/27/18 16:42 Respiratory Effort 03/27/18 10:37 Respiratory Depth Normal 03/27/18 10:37 Respiratory Pattern Normal 03/27/18 10:37 Blood Pressure 132/72 03/27/18 16:42 Pulse Oximetry 95 03/27/18 16:42 Oxygen Delivery Method Room Air 03/27/18 16:42 Oxygen Flow Rate 0 03/27/18 16:42 Pain Level 0 03/27/18 16:42 Comment 03/25/18 19:35 Intake & Output 03/26/18 03/27/18 03/27/18 23:59 11:59 23:59 Intake Total 1190 / 2110 1230 / 1330 100 / 1330 Output Total 3300 / 4400 250 / 1550 1300 / 1550 Balance -2110 / -2290 980 / -220 -1200 / -220 Intake: IV 820 / 1380 580 / 680 100 / 680 Oral 370 / 730 650 / 650 Output: Urine 3300 / 4400 250 / 1550 1300 / 1550 Other: Urine Color Yellow Dark Jil Light Jil Urine Appearance Clear Clear Clear Urine Odor None Stool Occult Blood Negative Stool Size Moderate Moderate Stool Characteristics Soft Soft Brown Green Voiding Methods Toilet Toilet Toilet Laboratory Results WBC 3.41 k/cumm (4.4-10.8) L D 03/27/18 06:45 RBC 3.92 m/cumm (4.00-5.20) L 03/27/18 06:45 Hgb 8.9 g/dL (12.0-15.5) L 03/27/18 06:45 Hct 29.9 % (36.0-46.0) L 03/27/18 06:45 MCV 76.3 fL (80-95) L 03/27/18 06:45 MCH 22.7 pg (27.0-33.0) L 03/27/18 06:45 MCHC 29.8 g/dL (32.0-36.0) L 03/27/18 06:45 RDW 23.6 % (11.7-14.6) H 03/27/18 06:45 Plt Count 163 x1000/uL (130-400) 03/27/18 06:45 MPV 10.8 fL (8.0-11.0) 03/27/18 06:45 Immature Gran % 0.3 03/27/18 06:45 Neutrophils % 72.4 03/27/18 06:45 Lymphocytes % 16.7 03/27/18 06:45 Monocytes % 8.8 03/27/18 06:45 Eosinophils % 1.5 03/27/18 06:45 Basophils % 0.3 03/27/18 06:45 Absolute Neutrophils 2.47 k/cumm (1.2-6.7) 03/27/18 06:45 Band Neutrophils 4.0 % 03/24/18 04:55 Absolute Lymphocytes 0.57 k/cumm (1.2-3.4) L 03/27/18 06:45 Absolute Monocytes 0.30 k/cumm (0.11-0.7) 03/27/18 06:45 Absolute Eosinophils 0.05 k/cumm (0.0-0.7) 03/27/18 06:45 Absolute Basophils 0.01 k/cumm (0.0-0.2) 03/27/18 06:45 Metamyelocytes 1.0 % 03/23/18 07:07 Nucleated RBCs 1 /100WBC 03/21/18 14:27 Differential Comment Rbc morph reviewed 03/25/18 07:00 RBC Morphology See below 03/24/18 04:55 Polychromasia Present 03/24/18 04:55 Hypochromasia 2+ 03/25/18 07:00 Poikilocytosis 1+ 03/24/18 04:55 Basophilic Stippling 1+ 03/25/18 07:00 Anisocytosis 3+ 03/25/18 07:00 Microcytosis 3+ 03/25/18 07:00 Ovalocytes 2+ 03/25/18 07:00 ESR 60 MM/HR (0-30) H 03/21/18 14:27 Haptoglobin 150 mg/dL (32-197) 03/25/18 07:00 PT 11.0 sec (9.3-11.0) 03/25/18 12:45 INR 1.1 (0.9-1.1) 03/25/18 12:45 APTT 25.0 sec (21.0-31.4) 03/25/18 12:45 D-Dimer 3176 ng/mlFEU (<500) H 03/24/18 06:00 Heparin Anti-Xa Level 0.16 IU/mL 03/23/18 10:55 Sample Site Right radial 03/24/18 10:57 pCO2 30 mmHg (34-47) L 03/24/18 10:57 pO2 93 mmHg (83-108) 03/24/18 10:57 O2 Saturation 99 % (94-98) H 03/24/18 10:57 ABG pH 7.45 (7.35-7.45) 03/24/18 10:57 ABG HCO3 21 mmol/L (22-28) L 03/24/18 10:57 ABG Total CO2 20 mmol/L (22-29) L 03/24/18 10:57 ABG Base Excess -3.4 mmol/L (-3-3) L 03/24/18 10:57 Oxygen Liter Flow 2 L 03/24/18 10:57 Sodium 140 mmol/L (136-145) 03/27/18 06:45 Potassium 3.9 mmol/L (3.5-5.1) D 03/27/18 06:45 Chloride 103 mmol/L (98-107) 03/27/18 06:45 Carbon Dioxide 29.6 mmol/L (21.0-32.0) 03/27/18 06:45 Anion Gap 7.4 mmol/L (3-11) 03/27/18 06:45 BUN 11 mg/dL (7-18) 03/27/18 06:45 Creatinine 0.74 mg/dL (0.55-1.02) 03/27/18 06:45 Estimated GFR/1.73 m2 >= 60.00 (mL/min/1.73m2) 03/27/18 06:45 Glucose 155 mg/dL (70-100) H 03/27/18 06:45 Lactate 1.4 mmol/L (0.6-1.4) 03/23/18 07:07 Calcium 7.9 mg/dL (8.5-10.1) L 03/27/18 06:45 Magnesium 1.8 mg/dL (1.8-2.4) 03/27/18 06:45 Iron 29 ug/dL (50-175) L 03/22/18 16:10 TIBC 323 ug/dL (250-450) 03/22/18 16:10 Transferrin Cancelled 03/22/18 08:25 Transferrin % Sat 9 % (15-50) L 03/22/18 16:10 Ferritin 34 ng/mL (8-388) 03/22/18 06:58 Total Bilirubin 1.1 mg/dL (0.2-1.0) H 03/27/18 06:45 Conjugated Bilirubin 0.58 mg/dL (0.00-0.20) H 03/27/18 06:45 AST 38 U/L (15-37) H 03/27/18 06:45 ALT 30 U/L (12-78) 03/27/18 06:45 Alkaline Phosphatase 128 U/L (46-116) H 03/27/18 06:45 Creatine Kinase 64 U/L (26-192) 03/23/18 07:07 C-Reactive Protein 3.35 mg/dL (0.0-0.3) H 03/21/18 14:27 Total Protein 5.9 g/dL (6.4-8.2) L 03/27/18 06:45 Albumin 2.4 g/dL (3.4-5.0) L 03/27/18 06:45 Lipase 341 U/L (73-393) 03/25/18 07:00 Urine Color Yellow (Yellow) 03/24/18 09:50 Urine Clarity Clear 03/24/18 09:50 Urine pH 5.5 (5-8) 03/24/18 09:50 Ur Specific [place] 1.015 (1.005-1.025) 03/24/18 09:50 Urine Protein Negative mg/dL (Negative) 03/24/18 09:50 Urine Ketones 15 mg/dL (Negative) H 03/24/18 09:50 Urine Blood Negative (Negative) 03/24/18 09:50 Urine Nitrite Negative (Negative) 03/24/18 09:50 Urine Bilirubin Negative (Negative) 03/24/18 09:50 Urine Urobilinogen 0.2 EU/dL (Up TO 0.2) 03/24/18 09:50 Ur Leukocyte Esterase Negative (Negative) 03/24/18 09:50 Urine RBC Not Applicable 03/21/18 15:25 Urine WBC HPF (0-5) 03/21/18 15:25 Ur Epithelial Cells Not Applicable 03/21/18 15:25 Urine Crystals Not Applicable 03/21/18 15:25 Urine Bacteria Packed HPF (Negative) 03/21/18 15:25 Urine Mucus Not Applicable 03/21/18 15:25 Ur Culture Indicated? Yes 03/21/18 15:25 Urine Glucose Negative mg/dL (Negative) 03/24/18 09:50 Vancomycin Trough 24.2 ug/mL (10.0-20.0) H* 03/27/18 10:55 Lyme Disease Antibody Negative 03/24/18 12:31 CMV IgM Ab Negative (Negative) 03/26/18 07:00 Hep Bs Antigen Negative (NEGAT) 03/25/18 07:00 Hep Bs Antibody Negative 03/25/18 07:00 Hep Bs Antibody, Quant 3.5 mIU/mL 03/25/18 07:00 Hep B Core Total Ab Negative (NEGAT) 03/25/18 07:00 Hepatitis C Antibody Negative (NEGAT) 03/25/18 07:00 Monoscreen Negative (Negative) 03/24/18 04:55 Path Cons Comment 03/21/18 14:27 Patient ABO/Rh A Positive 03/25/18 11:47 Antibody Screen Negative 03/25/18 11:47 Crossmatch See Detail 03/25/18 11:47 Reaction Clerical Check No clerical errors 03/25/18 16:25 Clerical Work Check Cancelled 03/24/18 09:44 Pre-Trans Blood Type A Positive 03/25/18 16:25 Pre-Trans Bld Appearanc No hemolysis/icterus 03/25/18 16:25 Pre-Trans VINNY Not Applicable 03/25/18 16:25 Post-Trans Blood Type A Positive 03/25/18 16:25 Post-Trans Spec Appear No hemolysis/icterus 03/25/18 16:25 Post-Trans VINNY Negative 03/25/18 16:25 Reaction Pathol Review Cancelled 03/24/18 09:44
[2018-03-27 21:21] LABS: EBV DNA Detect/Quant, P Undetected IU/mL (Undetected)
[2018-03-27] MEDS: Pravastatin 20 MG TAB 10 MG PO (21:46)
[2018-03-27 23:17] LABS: Anaplasma phagocytophilum Negative (Negative); B. miyamotoi PCR Negative (Negative); Babesia divergens/MO-1 Negative (Negative); Babesia duncani Negative (Negative); Babesia microti Negative (Negative); Ehrlichia chaffeensis Negative (Negative); Ehrlichia ewingii/canis Negative (Negative); Ehrlichia muris eauclairensis Negative (Negative)
[2018-03-28] MEDS: VANCOMYCIN 1,000 MG in Normal Saline 250 ML 250 MG IV (01:50)
[2018-03-28] MEDS: ACETAMINOPHEN 1,000 MG/100 ML BTL 400 MG IVPB ×2 (03:09→17:12)
[2018-03-28 04:17] VITALS: PULSE 70; TEMP 36.5; O2SAT 94
[2018-03-28 07:12] LABS: Abs Immature Grans 0.01 k/cumm (0.0-0.09); Absolute Basophil Count 0.01 k/cumm (0.0-0.2); Absolute Eosinophil Count 0.05 k/cumm (0.0-0.7); Absolute Lymphocyte Count 0.66 k/cumm (1.2-3.4); Absolute Monocyte Count 0.33 k/cumm (0.11-0.7); Absolute Neutrophil Count 1.85 k/cumm (1.2-6.7); Basophils % 0.3; Eosinophils % 1.7; HCT 29.1 % (36.0-46.0); HGB 8.7 g/dL (12.0-15.5); Immature Grans % 0.3; Lymphocytes % 22.7; Mean Corp. HGB Concentration 29.9 g/dL (32.0-36.0); Mean Corpuscular Hemoglobin 23.1 pg (27.0-33.0); Mean Corpuscular Volume 77.4 fL (80-95); Mean Platelet Volume 10.4 fL (8.0-11.0); Monocytes % 11.3; Neutrophils % 63.7; Platelet Count 159 x1000/uL (130-400); RBC 3.76 m/cumm (4.00-5.20); RBC Distribution Width 23.4 % (11.7-14.6); White Blood Cell Count 2.91 k/cumm (4.4-10.8)
[2018-03-28 07:20] LABS: Anion Gap 10.1 mmol/L (3-11); BUN 11 mg/dL (7-18); CO2 28.9 mmol/L (21.0-32.0); CREATININE 0.72 mg/dL (0.55-1.02); Chloride 101 mmol/L (98-107); Glucose 165 mg/dL (70-100); Magnesium 1.6 mg/dL (1.8-2.4); Potassium 3.5 mmol/L (3.5-5.1); Sodium 140 mmol/L (136-145)
[2018-03-28 07:51] VITALS: BP 125/70; PULSE 72; RESP 17; TEMP 37.6; O2SAT 95
--- NOTE | 2018-03-28 08:39 | PDOC.CMPRO ---
Care Management Progress Note S/O: CM completed AD with patient and who decided to review document again prior to processing. Alayna required some support with processing her ongoing hospitalization and lack of diagnosis. She had a midline placed and was able to verbalize feeling anxious and process her feelings as she has a fear of needles and has struggled with ongoing labs and losing IV access. CM was present when Alayna and Seymour met with MD and supported Alayna and reviewed information. If studies are negative, per MD Alayna may require transfer for ongoing work up. CM will continue to follow. Alayna was reviewed at interdisciplinary rounds meeting; per MD: stared on doxycycline awaiting viral studies, MD consult with heme (Dr Goodwin) at [facility], who feels that pancytopenia is possibly due to zosyn, possibly due to cirrhosis/sepsis, or a viral process, and anemia has a GI bleed component. Lymphoma is very low on differential as WBC and platelets seem to be improving. EGD is high risk at our facility and would likely need to be completed with GI at a tertiary care facility. Kidney function continues to be monitored due to new medications. A: 67 year old female admitted to [facility] 03/21/17 for Pyelonephritis P: Alayna remains on telemetry, IVF and IV ABX at this time. CM will continue and monitor clinical status for discharge planning considerations. Anticipate Alayna will return home with no additional services at this time and will have outpatient follow up with surgical services of endoscopy colonoscopy.
--- NOTE | 2018-03-28 08:43 | CMPROGNOTE_ITS ---
Care Management Progress Note S/O: CM completed AD with patient and who decided to review document again prior to processing. Alayna required some support with processing her ongoing hospitalization and lack of diagnosis. She had a midline placed and was able to verbalize feeling anxious and process her feelings as she has a fear of needles and has struggled with ongoing labs and losing IV access. CM was present when Alayna and Seymour met with MD and supported Alayna and reviewed information. If studies are negative, per MD Alayna may require transfer for ongoing work up. CM will continue to follow. Alayna was reviewed at interdisciplinary rounds meeting; per MD: stared on doxycycline awaiting viral studies, MD consult with heme ([place] Goodwin[place] [facility] [place] who feels that pancytopenia is possibly due to zosyn, possibly due to cirrhosis/sepsis, or a viral process, and anemia has a GI bleed component. Lymphoma is very low on differential as WBC and platelets seem to be improving. EGD is high risk at our facility and would likely need to be completed with GI at a tertiary care facility. Kidney function continues to be monitored due to new medications. A: 67 year old female admitted to [facility] 03/21/17 for Pyelonephritis P: Alayna remains on telemetry, IVF and IV ABX at this time. CM will continue and monitor clinical status for discharge planning considerations. Anticipate Alayna will return home with no additional services at this time and will have outpatient follow up with surgical services of endoscopy colonoscopy.
[2018-03-28] MEDS: Insulin Aspart 300 UNITS/3 ML PEN SC ×3 (08:50→17:13)
[2018-03-28] MEDS: Nadolol 40 MG TAB 10 MG PO (08:52)
[2018-03-28] MEDS: Sucralfate 1 GM TAB PO ×4 (08:53→22:52)
[2018-03-28] MEDS: Pantoprazole 40 MG VIAL IVP ×2 (08:53→20:55)
[2018-03-28] MEDS: Spironolactone 25 MG TAB PO (08:53)
[2018-03-28] MEDS: Metoprolol 12.5 MG TAB PO ×2 (08:53→20:55)
[2018-03-28] MEDS: Furosemide 20 MG/2 ML VIAL IVP ×2 (08:54→17:14)
[2018-03-28] MEDS: Normal Saline Flush 10 ML SYR IVP ×3 (08:54→20:55)
[2018-03-28] MEDS: Normal Saline 500 ML 200 ML IV (11:21)
[2018-03-28 11:29] LABS: CMV IgG Antibody Negative
[2018-03-28 11:42] VITALS: BP 127/75; PULSE 64; RESP 18; TEMP 37.2; O2SAT 96
[2018-03-28] MEDS: VANCOMYCIN 1,000 MG in Normal Saline 250 ML 166.7 MG IV ×2 (12:15→20:54)
[2018-03-28] MEDS: DOXYCYCLINE 100 MG in Normal Saline 100 ML IVPB (14:00)
--- NOTE | 2018-03-28 14:42 | CHAPLAIN ---
I visited with Alayna and her . Alayna noted that she has been here a week today. They are waiting to learn more and possibly transfer to [facility] [place]. Alayna's said they are appreciative for the care she has received here.
[2018-03-28 16:36] VITALS: BP 144/74; PULSE 73; RESP 18; TEMP 38; O2SAT 95
--- NOTE | 2018-03-28 20:07 | W.PM.PROGNOT ---
Date of Service Date of service: 03/28/18 Time of Service: 15:30 Assessment and Plan (1) Sepsis: Current visit: Yes Status: Acute Viral process, a tick borne illness or a malignancy remain on differential. Highest on differential is parvovirus B19 for which the results are supposed to be back tomorrow. EBV/CMV negative. We have ruled out a UTI with a negative repeat UA. HIDA scan is negative. SBP not impossible, though pain is minimal. There is not enough ascites for a paracenthesis. Await viral studies, tick studies. Consider d/c abx. I feel that the illness in the grandchild is very likely connected to current presentatio. *The patient will still eventually need a cholecystectomy if becomes symptomatic due to having a stone in the gallbladder neck. (2) Anemia: Current visit: Yes Status: Acute Hem positive with evidence of iron deficiency, likely due to slow GI bleeding, s/p transfusion. Hemoccult remains positive. Has a history of cirrhosis. INR wnl, but could have varices - EGD is high risk at our facility and would likely need to have this done by GI at a tertiary care facility. Continue PPI. Qualifiers: Anemia type: unspecified type Iron deficiency anemia type: Vitamin B12 deficiency anemia type: Folate deficiency anemia type: Bone marrow failure anemia type: Hemolytic anemia type: Other causes of anemia: Chronic kidney disease stage: Qualified Code(s): D64.9 - Anemia, unspecified (3) DERRELL (acute kidney injury): Current visit: Yes Status: Resolved Continue to monitor Cr. (4) Supraventricular tachycardia, paroxysmal: Current visit: No Status: Chronic Not a part of our clinical picture today (5) Diabetes mellitus type 2, controlled, without complications: Current visit: No Status: Chronic No change in tx (6) COPD (chronic obstructive pulmonary disease): Current visit: No Status: Chronic Wheezing resolved (7) Essential hypertension: Current visit: No Status: Chronic Continue nadolol (8) Cholelithiasis: Current visit: Yes Status: Chronic HIDA scan negative for cholecystitis. Likely an incidental finding. Cholecystectomy electively as outpatient at a tertiary care faciliity. Qualifiers: Cholelithiasis location: gallbladder Cholecystitis presence: without cholecystitis Cholangitis presence: Cholecystitis acuity: Cholangitis acuity: Biliary obstruction: without biliary obstruction Qualified Code(s): K80.20 - Calculus of gallbladder without cholecystitis without obstruction (9) SOB (shortness of breath): Current visit: Yes Status: Resolved Likely due to fluid overload. Continue gentle diuresis. (10) Non-alcoholic fatty liver disease: Current visit: No Status: Chronic Likely the etiology of the cirrhosis seen on CT. Hepatitis studies negative. (11) Gastroesophageal reflux disease: Current visit: No Status: Chronic PPI + carafate (12) DVT prophylaxis: Current visit: Yes Status: Acute Chemical DVT prophylaxis is contraindicated due to bleeding/anemia. Continue SCD's + CAREN's (13) Portal hypertension: Current visit: Yes Status: Acute likely due to cirrhosis. Continue nadolol, monitoring for bronchospasm. (14) Ascites: Current visit: Yes Status: Acute Increase aldactone. Paracenthesis impossible at this time as the amount of ascites is minimal. Qualifiers: Ascites type: other type Qualified Code(s): R18.8 - Other ascites (15) Cirrhosis: Current visit: Yes Status: Chronic New diagnosis. Etiology is, most likely, fatty liver disease/SILVESTRE. Hepatitis studies negative Qualifiers: Hepatic cirrhosis type: unspecified hepatic cirrhosis Ascites presence: with ascites Qualified Code(s): K74.60 - Unspecified cirrhosis of liver; R18.8 - Other ascites (16) Splenomegaly: Current visit: Yes Status: Chronic Likely due to cirrhosis, but could also be a part of a viral process or lymphoma (much less likely). Read discussion above (17) Pancytopenia: Current visit: Yes Status: Acute Discussed with heme (Dr Goodwin) at [facility] [place], who feels that pancytopenia is possibly due to zosyn, possibly due to cirrhosis/sepsis, or a viral process, and anemia has a GI bleed component. Lymphoma is very low on differential as WBC and platelets seem to be improving. Subjective Interval history since last seen: Ms Nix is not feeling as well today. She is very anxious about getting a midline but she has now lost at least 10 IV's. She denies dizziness, chest pain, shortness of breath, nausea, vomiting. She reports discomfort in LUQ. Exam Narrative Exam Narrative: General: Middle aged female, anxious, sitting up in a chair HEENT: EOMI, MMM Heart: RRR, no m/r/g Lungs: clear to auscultation bilaterally GI: abdomen soft, mild ascites, splenomegaly Extremities; no e/c/c BLE's Objective Objective Clinical Data: Abnormal lab results 03/28/18 03/28/18 Range/Units 06:52 06:52 WBC 2.91 L (4.4-10.8) k/cumm RBC 3.76 L (4.00-5.20) m/cumm Hgb 8.7 L (12.0-15.5) g/dL Hct 29.1 L (36.0-46.0) % MCV 77.4 L (80-95) fL MCH 23.1 L (27.0-33.0) pg MCHC 29.9 L (32.0-36.0) g/dL RDW 23.4 H (11.7-14.6) % Absolute Lymphocytes 0.66 L (1.2-3.4) k/cumm Glucose 165 H (70-100) mg/dL Calcium 8.0 L (8.5-10.1) mg/dL Magnesium 1.6 L (1.8-2.4) mg/dL Vital Signs Temperature 38.0 C H 03/28/18 16:36 Temperature Source Tympanic 03/28/18 16:36 Pulse 73 03/28/18 16:36 Pulse Rhythm Regular 03/28/18 08:45 Respiratory Rate 18 03/28/18 16:36 Respiratory Effort Non-Labored 03/28/18 08:45 Respiratory Depth Normal 03/28/18 08:45 Respiratory Pattern Normal 03/28/18 08:45 Blood Pressure 144/74 H 03/28/18 16:36 Pulse Oximetry 95 03/28/18 16:36 Oxygen Delivery Method Room Air 03/28/18 16:36 Oxygen Flow Rate 0 03/28/18 16:36 Pain Level 2 03/28/18 11:42 Comment 03/25/18 19:35 Intake & Output 03/27/18 03/28/18 03/28/18 23:59 11:59 23:59 Intake Total 650 / 1880 1215 / 1985 770 / 1985 Output Total 1300 / 1550 1650 / 3000 1350 / 3000 Balance -650 / 330 -435 / -1015 -580 / -1015 Weight 69.5 kg Intake: IV 650 / 1230 600 / 650 50 / 650 Oral 615 / 1335 720 / 1335 Output: Urine 1300 / 1550 1650 / 3000 1350 / 3000 Other: Urine Color Light Jil Dark Jil Yellow Urine Appearance Clear Clear Clear Urine Odor None Normal Stool Occult Blood Negative Positive Stool Size Moderate Moderate Stool Characteristics Soft Soft Green Brown Voiding Methods Toilet Toilet Toilet Laboratory Results WBC 2.91 k/cumm (4.4-10.8) L 03/28/18 06:52 RBC 3.76 m/cumm (4.00-5.20) L 03/28/18 06:52 Hgb 8.7 g/dL (12.0-15.5) L 03/28/18 06:52 Hct 29.1 % (36.0-46.0) L 03/28/18 06:52 MCV 77.4 fL (80-95) L 03/28/18 06:52 MCH 23.1 pg (27.0-33.0) L 03/28/18 06:52 MCHC 29.9 g/dL (32.0-36.0) L 03/28/18 06:52 RDW 23.4 % (11.7-14.6) H 03/28/18 06:52 Plt Count 159 x1000/uL (130-400) 03/28/18 06:52 MPV 10.4 fL (8.0-11.0) 03/28/18 06:52 Immature Gran % 0.3 03/28/18 06:52 Neutrophils % 63.7 03/28/18 06:52 Lymphocytes % 22.7 03/28/18 06:52 Monocytes % 11.3 03/28/18 06:52 Eosinophils % 1.7 03/28/18 06:52 Basophils % 0.3 03/28/18 06:52 Absolute Neutrophils 1.85 k/cumm (1.2-6.7) 03/28/18 06:52 Band Neutrophils 4.0 % 03/24/18 04:55 Absolute Lymphocytes 0.66 k/cumm (1.2-3.4) L 03/28/18 06:52 Absolute Monocytes 0.33 k/cumm (0.11-0.7) 03/28/18 06:52 Absolute Eosinophils 0.05 k/cumm (0.0-0.7) 03/28/18 06:52 Absolute Basophils 0.01 k/cumm (0.0-0.2) 03/28/18 06:52 Metamyelocytes 1.0 % 03/23/18 07:07 Nucleated RBCs 1 /100WBC 03/21/18 14:27 Differential Comment Rbc morph reviewed 03/25/18 07:00 RBC Morphology See below 03/24/18 04:55 Polychromasia Present 03/24/18 04:55 Hypochromasia 2+ 03/25/18 07:00 Poikilocytosis 1+ 03/24/18 04:55 Basophilic Stippling 1+ 03/25/18 07:00 Anisocytosis 3+ 03/25/18 07:00 Microcytosis 3+ 03/25/18 07:00 Ovalocytes 2+ 03/25/18 07:00 ESR 60 MM/HR (0-30) H 03/21/18 14:27 Haptoglobin 150 mg/dL (32-197) 03/25/18 07:00 PT 11.0 sec (9.3-11.0) 03/25/18 12:45 INR 1.1 (0.9-1.1) 03/25/18 12:45 APTT 25.0 sec (21.0-31.4) 03/25/18 12:45 D-Dimer 3176 ng/mlFEU (<500) H 03/24/18 06:00 Heparin Anti-Xa Level 0.16 IU/mL 03/23/18 10:55 Sample Site Right radial 03/24/18 10:57 pCO2 30 mmHg (34-47) L 03/24/18 10:57 pO2 93 mmHg (83-108) 03/24/18 10:57 O2 Saturation 99 % (94-98) H 03/24/18 10:57 ABG pH 7.45 (7.35-7.45) 03/24/18 10:57 ABG HCO3 21 mmol/L (22-28) L 03/24/18 10:57 ABG Total CO2 20 mmol/L (22-29) L 03/24/18 10:57 ABG Base Excess -3.4 mmol/L (-3-3) L 03/24/18 10:57 Oxygen Liter Flow 2 L 03/24/18 10:57 Sodium 140 mmol/L (136-145) 03/28/18 06:52 Potassium 3.5 mmol/L (3.5-5.1) 03/28/18 06:52 Chloride 101 mmol/L (98-107) 03/28/18 06:52 Carbon Dioxide 28.9 mmol/L (21.0-32.0) 03/28/18 06:52 Anion Gap 10.1 mmol/L (3-11) 03/28/18 06:52 BUN 11 mg/dL (7-18) 03/28/18 06:52 Creatinine 0.72 mg/dL (0.55-1.02) 03/28/18 06:52 Estimated GFR/1.73 m2 >= 60.00 (mL/min/1.73m2) 03/28/18 06:52 Glucose 165 mg/dL (70-100) H 03/28/18 06:52 Lactate 1.4 mmol/L (0.6-1.4) 03/23/18 07:07 Calcium 8.0 mg/dL (8.5-10.1) L 03/28/18 06:52 Magnesium 1.6 mg/dL (1.8-2.4) L 03/28/18 06:52 Iron 29 ug/dL (50-175) L 03/22/18 16:10 TIBC 323 ug/dL (250-450) 03/22/18 16:10 Transferrin Cancelled 03/22/18 08:25 Transferrin % Sat 9 % (15-50) L 03/22/18 16:10 Ferritin 34 ng/mL (8-388) 03/22/18 06:58 Total Bilirubin 1.1 mg/dL (0.2-1.0) H 03/27/18 06:45 Conjugated Bilirubin 0.58 mg/dL (0.00-0.20) H 03/27/18 06:45 AST 38 U/L (15-37) H 03/27/18 06:45 ALT 30 U/L (12-78) 03/27/18 06:45 Alkaline Phosphatase 128 U/L (46-116) H 03/27/18 06:45 Creatine Kinase 64 U/L (26-192) 03/23/18 07:07 C-Reactive Protein 3.35 mg/dL (0.0-0.3) H 03/21/18 14:27 Total Protein 5.9 g/dL (6.4-8.2) L 03/27/18 06:45 Albumin 2.4 g/dL (3.4-5.0) L 03/27/18 06:45 Lipase 341 U/L (73-393) 03/25/18 07:00 Urine Color Yellow (Yellow) 03/24/18 09:50 Urine Clarity Clear 03/24/18 09:50 Urine pH 5.5 (5-8) 03/24/18 09:50 Ur Specific [place] 1.015 (1.005-1.025) 03/24/18 09:50 Urine Protein Negative mg/dL (Negative) 03/24/18 09:50 Urine Ketones 15 mg/dL (Negative) H 03/24/18 09:50 Urine Blood Negative (Negative) 03/24/18 09:50 Urine Nitrite Negative (Negative) 03/24/18 09:50 Urine Bilirubin Negative (Negative) 03/24/18 09:50 Urine Urobilinogen 0.2 EU/dL (Up TO 0.2) 03/24/18 09:50 Ur Leukocyte Esterase Negative (Negative) 03/24/18 09:50 Urine RBC Not Applicable 03/21/18 15:25 Urine WBC HPF (0-5) 03/21/18 15:25 Ur Epithelial Cells Not Applicable 03/21/18 15:25 Urine Crystals Not Applicable 03/21/18 15:25 Urine Bacteria Packed HPF (Negative) 03/21/18 15:25 Urine Mucus Not Applicable 03/21/18 15:25 Ur Culture Indicated? Yes 03/21/18 15:25 Urine Glucose Negative mg/dL (Negative) 03/24/18 09:50 Vancomycin Trough 24.2 ug/mL (10.0-20.0) H* 03/27/18 10:55 A.phagocytophil DNA PCR Negative (Negative) 03/24/18 12:31 B. divergens/MO-1 PCR Negative (Negative) 03/24/18 12:31 Babesia duncani (PCR) Negative (Negative) 03/24/18 12:31 Babesia microti DNA PCR Negative (Negative) 03/24/18 12:31 Borrelia (PCR) Negative (Negative) 03/24/18 12:31 Lyme Disease Antibody Negative 03/24/18 12:31 CMV IgG Ab Negative 03/26/18 07:00 CMV IgM Ab Negative (Negative) 03/26/18 07:00 E.chaffeensis DNA (PCR) Negative (Negative) 03/24/18 12:31 E.ewingii/canis DNA PCR Negative (Negative) 03/24/18 12:31 E. muris-like DNA (PCR) Negative (Negative) 03/24/18 12:31 EBV DNA, Quant Undetected IU/mL (Undetected) 03/26/18 07:00 Hep Bs Antigen Negative (NEGAT) 03/25/18 07:00 Hep Bs Antibody Negative 03/25/18 07:00 Hep Bs Antibody, Quant 3.5 mIU/mL 03/25/18 07:00 Hep B Core Total Ab Negative (NEGAT) 03/25/18 07:00 Hepatitis C Antibody Negative (NEGAT) 03/25/18 07:00 Monoscreen Negative (Negative) 03/24/18 04:55 Path Cons Comment 03/21/18 14:27 Patient ABO/Rh A Positive 03/25/18 11:47 Antibody Screen Negative 03/25/18 11:47 Crossmatch See Detail 03/25/18 11:47 Reaction Clerical Check No clerical errors 03/25/18 16:25 Clerical Work Check Cancelled 03/24/18 09:44 Pre-Trans Blood Type A Positive 03/25/18 16:25 Pre-Trans Bld Appearanc No hemolysis/icterus 03/25/18 16:25 Pre-Trans VINNY Not Applicable 03/25/18 16:25 Post-Trans Blood Type A Positive 03/25/18 16:25 Post-Trans Spec Appear No hemolysis/icterus 03/25/18 16:25 Post-Trans VINNY Negative 03/25/18 16:25 Reaction Pathol Review Cancelled 03/24/18 09:44
[2018-03-28] MEDS: Magnesium Chloride 64 MG TABCR PO (20:55)
[2018-03-28] MEDS: Pravastatin 20 MG TAB 10 MG PO (22:51)
[2018-03-29 00:14] VITALS: BP 151/74; PULSE 69; RESP 18; TEMP 36.9; O2SAT 96
[2018-03-29] MEDS: Normal Saline Flush 10 ML SYR IVP ×7 (01:50→19:46)
[2018-03-29] MEDS: ACETAMINOPHEN 1,000 MG/100 ML BTL 400 MG IVPB ×3 (01:55→17:56)
[2018-03-29] MEDS: DOXYCYCLINE 100 MG in Normal Saline 100 ML IVPB (04:03)
[2018-03-29 04:25] VITALS: BP 149/70; PULSE 70; RESP 18; TEMP 36.7; O2SAT 97
[2018-03-29 07:31] LABS: Abs Immature Grans 0.01 k/cumm (0.0-0.09); Absolute Basophil Count 0.01 k/cumm (0.0-0.2); Absolute Eosinophil Count 0.04 k/cumm (0.0-0.7); Absolute Lymphocyte Count 0.69 k/cumm (1.2-3.4); Absolute Monocyte Count 0.27 k/cumm (0.11-0.7); Absolute Neutrophil Count 1.78 k/cumm (1.2-6.7); Basophils % 0.4; Eosinophils % 1.4; HCT 27.6 % (36.0-46.0); HGB 8.3 g/dL (12.0-15.5); Immature Grans % 0.4; Lymphocytes % 24.6; Mean Corp. HGB Concentration 30.1 g/dL (32.0-36.0); Mean Corpuscular Hemoglobin 23.3 pg (27.0-33.0); Mean Corpuscular Volume 77.5 fL (80-95); Mean Platelet Volume 10.3 fL (8.0-11.0); Monocytes % 9.6; Neutrophils % 63.6; Platelet Count 192 x1000/uL (130-400); RBC 3.56 m/cumm (4.00-5.20); RBC Distribution Width 23.3 % (11.7-14.6)
[2018-03-29 07:40] VITALS: BP 154/74; PULSE 73; RESP 20; TEMP 36.6; O2SAT 96
[2018-03-29 07:42] LABS: Anion Gap 5.3 mmol/L (3-11); BUN 8 mg/dL (7-18); CO2 32.7 mmol/L (21.0-32.0); CREATININE 0.76 mg/dL (0.55-1.02); Chloride 103 mmol/L (98-107); Glucose 175 mg/dL (70-100); Magnesium 1.6 mg/dL (1.8-2.4); Potassium 3.6 mmol/L (3.5-5.1); Sodium 141 mmol/L (136-145)
[2018-03-29 08:32] LABS: Vancomycin, Trough 27.4 ug/mL (10.0-20.0)
[2018-03-29] MEDS: Pantoprazole 40 MG VIAL IVP ×2 (08:49→19:49)
[2018-03-29] MEDS: Insulin Aspart 300 UNITS/3 ML PEN SC ×3 (08:49→17:17)
[2018-03-29] MEDS: MAGNESIUM SULFATE 2 GM/50 ML BAG IVPB (08:52)
[2018-03-29] MEDS: Furosemide 20 MG TAB PO ×2 (08:53→16:40)
[2018-03-29] MEDS: Sucralfate 1 GM TAB PO ×4 (08:53→21:28)
[2018-03-29] MEDS: Nadolol 40 MG TAB 10 MG PO (08:53)
[2018-03-29] MEDS: Spironolactone 25 MG TAB 50 MG PO (08:54)
[2018-03-29] MEDS: Metoprolol 12.5 MG TAB PO ×2 (08:54→19:47)
[2018-03-29] MEDS: Magnesium Chloride 64 MG TABCR PO ×2 (08:54→19:48)
[2018-03-29] MEDS: Normal Saline 500 ML 30 ML IV (12:42)
[2018-03-29 13:05] VITALS: BP 155/75; PULSE 72; RESP 18; TEMP 36.3; O2SAT 99
[2018-03-29] MEDS: VANCOMYCIN 1,000 MG in Normal Saline 250 ML 250 MG IV (14:34)
[2018-03-29 15:49] VITALS: BP 145/77; PULSE 71; RESP 20; TEMP 36.8; O2SAT 96
[2018-03-29 16:24] LABS: Parvovirus B19 By Rapid PCR, P Negative; Source PLASMA
--- NOTE | 2018-03-29 16:52 | PDOC.CMPRO ---
- If Service Date Differs Date of service: 03/29/18 Time of Service: 16:52 Care Management Progress Note S/O:Pt resting when CM attempts to visit with the door closed. No change in plan today continue to await viral study results she has not been febrile per report today. CM to continue to provide support. Patient remains on droplet precautions. A: 67 year old female admitted to [facility] 03/21/17 for Pyelonephritis P: Alayna remains on telemetry, IVF and IV ABX at this time. CM will continue and monitor clinical status for discharge planning considerations. Anticipate Alayna will return home with no additional services at this time and will have outpatient follow up with surgical services of endoscopy colonoscopy.
--- NOTE | 2018-03-29 18:48 | W.PM.PROGNOT ---
Date of Service Date of service: 03/29/18 Time of Service: 17:30 Assessment and Plan (1) Sepsis: Current visit: Yes Status: Acute Viral process, a tick borne illness or a malignancy remain on differential. Parvovirus DNA PCR is negative; serologies are pending. EBV/CMV negative. We have ruled out a UTI with a negative repeat UA. HIDA scan is negative. SBP not impossible, though pain is minimal. There is not enough ascites for a paracenthesis. Doxycycline d/c'ed. Will discuss with ID and heme at [facility] [place] the results of the parvovirus studies are known. I feel that the illness in the grandchild is very likely connected to current presentation. *The patient will still eventually need a cholecystectomy if becomes symptomatic due to having a stone in the gallbladder neck. (2) Anemia: Current visit: Yes Status: Acute Hem positive with evidence of iron deficiency, likely due to slow GI bleeding, s/p transfusion. Hemoccult remains positive. Start ferrous sulfate 325 mg PO BID and vitamin C. Has a history of cirrhosis. INR wnl, but could have varices - EGD is high risk at our facility and would likely need to have this done by GI at a tertiary care facility. Continue PPI. Qualifiers: Anemia type: unspecified type Iron deficiency anemia type: Vitamin B12 deficiency anemia type: Folate deficiency anemia type: Bone marrow failure anemia type: Hemolytic anemia type: Other causes of anemia: Chronic kidney disease stage: Qualified Code(s): D64.9 - Anemia, unspecified (3) DERRELL (acute kidney injury): Current visit: Yes Status: Resolved Continue to monitor Cr. (4) Supraventricular tachycardia, paroxysmal: Current visit: No Status: Chronic Not a part of our clinical picture today. On nadolol. (5) Diabetes mellitus type 2, controlled, without complications: Current visit: No Status: Chronic No change in tx (6) COPD (chronic obstructive pulmonary disease): Current visit: No Status: Chronic Wheezing resolved (7) Essential hypertension: Current visit: No Status: Chronic Continue nadolol (8) Cholelithiasis: Current visit: Yes Status: Chronic HIDA scan negative for cholecystitis. Likely an incidental finding. Cholecystectomy electively as outpatient at a tertiary care faciliity. Qualifiers: Cholelithiasis location: gallbladder Cholecystitis presence: without cholecystitis Cholangitis presence: Cholecystitis acuity: Cholangitis acuity: Biliary obstruction: without biliary obstruction Qualified Code(s): K80.20 - Calculus of gallbladder without cholecystitis without obstruction (9) SOB (shortness of breath): Current visit: Yes Status: Resolved Likely due to fluid overload. Increasing diuresis today. (10) Non-alcoholic fatty liver disease: Current visit: No Status: Chronic Likely the etiology of the cirrhosis seen on CT. Hepatitis studies negative. (11) Gastroesophageal reflux disease: Current visit: No Status: Chronic PPI + carafate (12) DVT prophylaxis: Current visit: Yes Status: Acute Chemical DVT prophylaxis is contraindicated due to bleeding/anemia. Continue SCD's + CAREN's (13) Portal hypertension: Current visit: Yes Status: Acute likely due to cirrhosis. Continue nadolol, monitoring for bronchospasm. (14) Ascites: Current visit: Yes Status: Acute Increase aldactone. Paracenthesis impossible at this time as the amount of ascites is minimal. Qualifiers: Ascites type: other type Qualified Code(s): R18.8 - Other ascites (15) Cirrhosis: Current visit: Yes Status: Chronic New diagnosis. Etiology is, most likely, fatty liver disease/SILVESTRE. Hepatitis studies negative Qualifiers: Hepatic cirrhosis type: unspecified hepatic cirrhosis Ascites presence: with ascites Qualified Code(s): K74.60 - Unspecified cirrhosis of liver; R18.8 - Other ascites (16) Splenomegaly: Current visit: Yes Status: Chronic Likely due to cirrhosis, but could also be a part of a viral process or lymphoma (much less likely). Read discussion above (17) Pancytopenia: Current visit: Yes Status: Acute Discussed with emy (Dr Goodwin) at [facility], who feels that pancytopenia is possibly due to zosyn, possibly due to cirrhosis/sepsis, or a viral process, and anemia has a GI bleed component. Lymphoma is very low on differential as WBC and platelets seem to be improving. Platelets are now nml. WBC remain borderline low. Subjective Interval history since last seen: Complains of LE swelling. Denies dizziness, chest pain, shortness of breath, nausea, vomiting. States spleen is really bothering her and that she cannot sleep on the left side. Exam Narrative Exam Narrative: General: Middle aged female, seen walking in the hallways, then sitting in her chair HEENT: EOMI, MMM Heart: RRR, no m/r/g Lungs: clear to auscultation bilaterally GI: abdomen soft, mild ascites, splenomegaly Extremities: +1 BLE edema, no clubbing or cyanosis Objective Objective Clinical Data: Abnormal lab results 03/29/18 03/29/18 03/29/18 Range/Units 06:35 06:35 06:35 WBC 2.80 L (4.4-10.8) k/cumm RBC 3.56 L (4.00-5.20) m/cumm Hgb 8.3 L (12.0-15.5) g/dL Hct 27.6 L (36.0-46.0) % MCV 77.5 L (80-95) fL MCH 23.3 L (27.0-33.0) pg MCHC 30.1 L (32.0-36.0) g/dL RDW 23.3 H (11.7-14.6) % Absolute Lymphocytes 0.69 L (1.2-3.4) k/cumm Carbon Dioxide 32.7 H (21.0-32.0) mmol/L Glucose 175 H (70-100) mg/dL Calcium 8.0 L (8.5-10.1) mg/dL Magnesium 1.6 L (1.8-2.4) mg/dL Vancomycin Trough 27.4 H* (10.0-20.0) ug/mL Vital Signs Temperature 36.8 C 03/29/18 15:49 Temperature Source Tympanic 03/29/18 15:49 Pulse 71 03/29/18 15:49 Pulse Rhythm Regular 03/29/18 08:35 Respiratory Rate 20 03/29/18 15:49 Respiratory Effort Non-Labored 03/29/18 08:35 Respiratory Depth Normal 03/29/18 08:35 Respiratory Pattern Normal 03/29/18 08:35 Blood Pressure 145/77 H 03/29/18 15:49 Pulse Oximetry 96 03/29/18 15:49 Oxygen Delivery Method Room Air 03/29/18 15:49 Oxygen Flow Rate 0 03/29/18 15:49 Pain Level 2 03/29/18 04:25 Comment 03/25/18 19:35 Intake & Output 03/28/18 03/29/18 03/29/18 23:59 11:59 23:59 Intake Total 1370 / 2685 1140 / 1140 Output Total 1350 / 3000 950 / 1550 600 / 1550 Balance 20 / -315 190 / -410 -600 / -410 Weight 68.6 kg Intake: IV 650 / 1350 900 / 900 Oral 720 / 1335 240 / 240 Output: Urine 1350 / 3000 950 / 1550 600 / 1550 Other: Urine Color Yellow Straw Straw Urine Appearance Clear Clear Clear Stool Occult Blood Negative Negative Stool Size Moderate Small Stool Characteristics Formed Soft Voiding Methods Toilet Toilet Laboratory Results WBC 2.80 k/cumm (4.4-10.8) L 03/29/18 06:35 RBC 3.56 m/cumm (4.00-5.20) L 03/29/18 06:35 Hgb 8.3 g/dL (12.0-15.5) L 03/29/18 06:35 Hct 27.6 % (36.0-46.0) L 03/29/18 06:35 MCV 77.5 fL (80-95) L 03/29/18 06:35 MCH 23.3 pg (27.0-33.0) L 03/29/18 06:35 MCHC 30.1 g/dL (32.0-36.0) L 03/29/18 06:35 RDW 23.3 % (11.7-14.6) H 03/29/18 06:35 Plt Count 192 x1000/uL (130-400) 03/29/18 06:35 MPV 10.3 fL (8.0-11.0) 03/29/18 06:35 Immature Gran % 0.4 03/29/18 06:35 Neutrophils % 63.6 03/29/18 06:35 Lymphocytes % 24.6 03/29/18 06:35 Monocytes % 9.6 03/29/18 06:35 Eosinophils % 1.4 03/29/18 06:35 Basophils % 0.4 03/29/18 06:35 Absolute Neutrophils 1.78 k/cumm (1.2-6.7) 03/29/18 06:35 Band Neutrophils 4.0 % 03/24/18 04:55 Absolute Lymphocytes 0.69 k/cumm (1.2-3.4) L 03/29/18 06:35 Absolute Monocytes 0.27 k/cumm (0.11-0.7) 03/29/18 06:35 Absolute Eosinophils 0.04 k/cumm (0.0-0.7) 03/29/18 06:35 Absolute Basophils 0.01 k/cumm (0.0-0.2) 03/29/18 06:35 Metamyelocytes 1.0 % 03/23/18 07:07 Nucleated RBCs 1 /100WBC 03/21/18 14:27 Differential Comment Rbc morph reviewed 03/25/18 07:00 RBC Morphology See below 03/24/18 04:55 Polychromasia Present 03/24/18 04:55 Hypochromasia 2+ 03/25/18 07:00 Poikilocytosis 1+ 03/24/18 04:55 Basophilic Stippling 1+ 03/25/18 07:00 Anisocytosis 3+ 03/25/18 07:00 Microcytosis 3+ 03/25/18 07:00 Ovalocytes 2+ 03/25/18 07:00 ESR 60 MM/HR (0-30) H 03/21/18 14:27 Haptoglobin 150 mg/dL (32-197) 03/25/18 07:00 PT 11.0 sec (9.3-11.0) 03/25/18 12:45 INR 1.1 (0.9-1.1) 03/25/18 12:45 APTT 25.0 sec (21.0-31.4) 03/25/18 12:45 D-Dimer 3176 ng/mlFEU (<500) H 03/24/18 06:00 Heparin Anti-Xa Level 0.16 IU/mL 03/23/18 10:55 Sample Site Right radial 03/24/18 10:57 pCO2 30 mmHg (34-47) L 03/24/18 10:57 pO2 93 mmHg (83-108) 03/24/18 10:57 O2 Saturation 99 % (94-98) H 03/24/18 10:57 ABG pH 7.45 (7.35-7.45) 03/24/18 10:57 ABG HCO3 21 mmol/L (22-28) L 03/24/18 10:57 ABG Total CO2 20 mmol/L (22-29) L 03/24/18 10:57 ABG Base Excess -3.4 mmol/L (-3-3) L 03/24/18 10:57 Oxygen Liter Flow 2 L 03/24/18 10:57 Sodium 141 mmol/L (136-145) 03/29/18 06:35 Potassium 3.6 mmol/L (3.5-5.1) 03/29/18 06:35 Chloride 103 mmol/L (98-107) 03/29/18 06:35 Carbon Dioxide 32.7 mmol/L (21.0-32.0) H 03/29/18 06:35 Anion Gap 5.3 mmol/L (3-11) 03/29/18 06:35 BUN 8 mg/dL (7-18) 03/29/18 06:35 Creatinine 0.76 mg/dL (0.55-1.02) 03/29/18 06:35 Estimated GFR/1.73 m2 >= 60.00 (mL/min/1.73m2) 03/29/18 06:35 Glucose 175 mg/dL (70-100) H 03/29/18 06:35 Lactate 1.4 mmol/L (0.6-1.4) 03/23/18 07:07 Calcium 8.0 mg/dL (8.5-10.1) L 03/29/18 06:35 Magnesium 1.6 mg/dL (1.8-2.4) L 03/29/18 06:35 Iron 29 ug/dL (50-175) L 03/22/18 16:10 TIBC 323 ug/dL (250-450) 03/22/18 16:10 Transferrin Cancelled 03/22/18 08:25 Transferrin % Sat 9 % (15-50) L 03/22/18 16:10 Ferritin 34 ng/mL (8-388) 03/22/18 06:58 Total Bilirubin 1.1 mg/dL (0.2-1.0) H 03/27/18 06:45 Conjugated Bilirubin 0.58 mg/dL (0.00-0.20) H 03/27/18 06:45 AST 38 U/L (15-37) H 03/27/18 06:45 ALT 30 U/L (12-78) 03/27/18 06:45 Alkaline Phosphatase 128 U/L (46-116) H 03/27/18 06:45 Creatine Kinase 64 U/L (26-192) 03/23/18 07:07 C-Reactive Protein 3.35 mg/dL (0.0-0.3) H 03/21/18 14:27 Total Protein 5.9 g/dL (6.4-8.2) L 03/27/18 06:45 Albumin 2.4 g/dL (3.4-5.0) L 03/27/18 06:45 Lipase 341 U/L (73-393) 03/25/18 07:00 Urine Color Yellow (Yellow) 03/24/18 09:50 Urine Clarity Clear 03/24/18 09:50 Urine pH 5.5 (5-8) 03/24/18 09:50 Ur Specific Happy 1.015 (1.005-1.025) 03/24/18 09:50 Urine Protein Negative mg/dL (Negative) 03/24/18 09:50 Urine Ketones 15 mg/dL (Negative) H 03/24/18 09:50 Urine Blood Negative (Negative) 03/24/18 09:50 Urine Nitrite Negative (Negative) 03/24/18 09:50 Urine Bilirubin Negative (Negative) 03/24/18 09:50 Urine Urobilinogen 0.2 EU/dL (Up TO 0.2) 03/24/18 09:50 Ur Leukocyte Esterase Negative (Negative) 03/24/18 09:50 Urine RBC Not Applicable 03/21/18 15:25 Urine WBC HPF (0-5) 03/21/18 15:25 Ur Epithelial Cells Not Applicable 03/21/18 15:25 Urine Crystals Not Applicable 03/21/18 15:25 Urine Bacteria Packed HPF (Negative) 03/21/18 15:25 Urine Mucus Not Applicable 03/21/18 15:25 Ur Culture Indicated? Yes 03/21/18 15:25 Urine Glucose Negative mg/dL (Negative) 03/24/18 09:50 Vancomycin Trough 27.4 ug/mL (10.0-20.0) H* 03/29/18 06:35 A.phagocytophil DNA PCR Negative (Negative) 03/24/18 12:31 B. divergens/MO-1 PCR Negative (Negative) 03/24/18 12:31 Babesia duncani (PCR) Negative (Negative) 03/24/18 12:31 Babesia microti DNA PCR Negative (Negative) 03/24/18 12:31 Borrelia (PCR) Negative (Negative) 03/24/18 12:31 Lyme Disease Antibody Negative 03/24/18 12:31 CMV IgG Ab Negative 03/26/18 07:00 CMV IgM Ab Negative (Negative) 03/26/18 07:00 E.chaffeensis DNA (PCR) Negative (Negative) 03/24/18 12:31 E.ewingii/canis DNA PCR Negative (Negative) 03/24/18 12:31 E. muris-like DNA (PCR) Negative (Negative) 03/24/18 12:31 EBV DNA, Quant Undetected IU/mL (Undetected) 03/26/18 07:00 Hep Bs Antigen Negative (NEGAT) 03/25/18 07:00 Hep Bs Antibody Negative 03/25/18 07:00 Hep Bs Antibody, Quant 3.5 mIU/mL 03/25/18 07:00 Hep B Core Total Ab Negative (NEGAT) 03/25/18 07:00 Hepatitis C Antibody Negative (NEGAT) 03/25/18 07:00 Monoscreen Negative (Negative) 03/24/18 04:55 Parvovirus Source Plasma 03/24/18 10:53 Parvov B19 DNA Rpd PCR Negative 03/24/18 10:53 Path Cons Comment 03/21/18 14:27 Patient ABO/Rh A Positive 03/25/18 11:47 Antibody Screen Negative 03/25/18 11:47 Crossmatch See Detail 03/25/18 11:47 Reaction Clerical Check No clerical errors 03/25/18 16:25 Clerical Work Check Cancelled 03/24/18 09:44 Pre-Trans Blood Type A Positive 03/25/18 16:25 Pre-Trans Bld Appearanc No hemolysis/icterus 03/25/18 16:25 Pre-Trans VINNY Not Applicable 03/25/18 16:25 Post-Trans Blood Type A Positive 03/25/18 16:25 Post-Trans Spec Appear No hemolysis/icterus 03/25/18 16:25 Post-Trans VINNY Negative 03/25/18 16:25 Reaction Pathol Review Cancelled 03/24/18 09:44
[2018-03-29] MEDS: Furosemide 20 MG/2 ML VIAL IVP (19:46)
[2018-03-29] MEDS: Ascorbic Acid 500 MG TAB PO (19:47)
[2018-03-29] MEDS: Ferrous Sulfate 325 MG TAB PO (19:47)
[2018-03-29 20:59] VITALS: BP 156/65; PULSE 73; RESP 16; TEMP 36.2; O2SAT 97
[2018-03-29 21:21] LABS: Parvovirus B19 Ab, IgG Positive (Negative); Parvovirus B19 Ab, IgM Negative (Negative)
[2018-03-29] MEDS: Pravastatin 20 MG TAB 10 MG PO (21:27)
[2018-03-30 00:55] VITALS: BP 149/72; PULSE 70; RESP 20; TEMP 36.8; O2SAT 96
[2018-03-30] MEDS: Normal Saline Flush 10 ML SYR IVP ×4 (01:06→20:09)
[2018-03-30] MEDS: ACETAMINOPHEN 1,000 MG/100 ML BTL 400 MG IVPB ×3 (01:06→17:32)
[2018-03-30] MEDS: VANCOMYCIN 1,000 MG in Normal Saline 250 ML 250 MG IV ×2 (01:32→14:34)
[2018-03-30 03:10] VITALS: BP 152/79; PULSE 67; RESP 20; TEMP 36.2; O2SAT 95
--- NOTE | 2018-03-30 06:38 | NUR.NOTE ---
Nursing Note: Beginning of the shift., mid Line flushed with NS and no resistance but no blood returned. transaction processor notified and given on the report at the end of the shift. Medications as scheduled well tolerated. blend technician well informed and will try to do peripheral draw.. Pt made aware.
[2018-03-30 07:27] LABS: Absolute Basophil Count 0.01 k/cumm (0.0-0.2); Absolute Eosinophil Count 0.04 k/cumm (0.0-0.7); Absolute Lymphocyte Count 0.58 k/cumm (1.2-3.4); Absolute Monocyte Count 0.28 k/cumm (0.11-0.7); Absolute Neutrophil Count 1.59 k/cumm (1.2-6.7); Basophils % 0.4; Eosinophils % 1.6; HCT 28.1 % (36.0-46.0); HGB 8.2 g/dL (12.0-15.5); Lymphocytes % 23.2; Mean Corp. HGB Concentration 29.2 g/dL (32.0-36.0); Mean Corpuscular Hemoglobin 22.8 pg (27.0-33.0); Mean Corpuscular Volume 78.1 fL (80-95); Mean Platelet Volume 9.9 fL (8.0-11.0); Monocytes % 11.2; Neutrophils % 63.6; Platelet Count 209 x1000/uL (130-400); RBC Distribution Width 23.3 % (11.7-14.6)
[2018-03-30 07:34] LABS: BUN 7 mg/dL (7-18); CREATININE 0.66 mg/dL (0.55-1.02); Calcium 8.3 mg/dL (8.5-10.1); Chloride 104 mmol/L (98-107); Glucose 187 mg/dL (70-100); Magnesium 2.2 mg/dL (1.8-2.4); Potassium 3.5 mmol/L (3.5-5.1); Sodium 143 mmol/L (136-145)
--- NOTE | 2018-03-30 08:51 | PDOC.CMPRO ---
Care Management Progress Note S/O: CM completed AD with patient and who decided to review document again prior to processing. Alayna required some support with processing her ongoing hospitalization and lack of diagnosis. She had a midline placed and was able to verbalize feeling anxious and process her feelings as she has a fear of needles and has struggled with ongoing labs and losing IV access. CM was present when Alayna and Seymour met with MD and supported Alayna and reviewed information. If studies are negative, per MD Alayna may require transfer for ongoing work up. CM will continue to follow. Alayna was reviewed at interdisciplinary rounds meeting; per MD: stared on doxycycline awaiting viral studies, MD consult with heme (Dr Goodwin) at [facility] [place], who feels that pancytopenia is possibly due to zosyn, possibly due to cirrhosis/sepsis, or a viral process, and anemia has a GI bleed component. Lymphoma is very low on differential as WBC and platelets seem to be improving. EGD is high risk at our facility and would likely need to be completed with GI at a tertiary care facility. Kidney function continues to be monitored due to new medications. A: 67 year old female admitted to [facility] 03/21/17 for Pyelonephritis P: Alayna remains on telemetry, IVF and IV ABX at this time. CM will continue and monitor clinical status for discharge planning considerations. Anticipate Alayna will return home with no additional services at this time and will have outpatient follow up with surgical services of endoscopy colonoscopy.
--- NOTE | 2018-03-30 09:06 | CMPROGNOTE_ITS ---
Care Management Progress Note S/O: CM completed AD with patient and who decided to review document again prior to processing. Alayna required some support with processing her ongoing hospitalization and lack of diagnosis. She had a midline placed and was able to verbalize feeling anxious and process her feelings as she has a fear of needles and has struggled with ongoing labs and losing IV access. CM was present when Alayna and Seymour met with MD and supported Alayna and reviewed information. If studies are negative, per MD Alayna may require transfer for ongoing work up. CM will continue to follow. Alayna was reviewed at interdisciplinary rounds meeting; per MD: stared on doxycycline awaiting viral studies, MD consult with heme (Dr Goodwin) at [facility] [place], who feels that pancytopenia is possibly due to zosyn, possibly due to cirrhosis/sepsis, or a viral process, and anemia has a GI bleed component. Lymphoma is very low on differential as WBC and platelets seem to be improving. EGD is high risk at our facility and would likely need to be completed with GI at a tertiary care facility. Kidney function continues to be monitored due to new medications. A: 67 year old female admitted to [facility] 03/21/17 for Pyelonephritis P: Alayna remains on telemetry, IVF and IV ABX at this time. CM will continue and monitor clinical status for discharge planning considerations. Anticipate Alayna will return home with no additional services at this time and will have outpatient follow up with surgical services of endoscopy colonoscopy.
--- NOTE | 2018-03-30 09:07 | PDOC.CMPRO ---
Care Management Progress Note S/O: Alayna was sitting up on the side of her bed, Seymour at her bedside. CM supported the couple in completing and processing their advance directives and faxed to MD Ha and [employer]. Alayna and Seymour shared they are still awaiting news of pending studies and next steps. Parvovirus DNA PCR is negative; serologies are pending. If studies are negative, per MD Alayna may require transfer for ongoing work up. reported she would be consulting [place] [facility] [place] to meeting with Alayna and Seymour. CM will continue to follow. A: 67 year old female admitted to [facility] 03/21/17 for Pyelonephritis P: Alayna remains on telemetry, IVF and IV ABX at this time. CM will continue and monitor clinical status for discharge planning considerations. Anticipate Alayna will return home with no additional services at this time and will have outpatient follow up with GI at tertiary facility for endoscopy colonoscopy. Per MD, Alayna may require transfer to tertiary facility-in this event she would transport via EMS.
[2018-03-30] MEDS: Pantoprazole 40 MG VIAL IVP ×2 (09:15→20:09)
[2018-03-30] MEDS: Furosemide 20 MG TAB 40 MG PO ×2 (09:15→15:53)
[2018-03-30] MEDS: Insulin Aspart 300 UNITS/3 ML PEN SC ×2 (09:15→12:09)
[2018-03-30] MEDS: Nadolol 40 MG TAB 10 MG PO (09:16)
[2018-03-30] MEDS: Sucralfate 1 GM TAB PO ×4 (09:16→21:16)
[2018-03-30] MEDS: Ferrous Sulfate 325 MG TAB PO ×2 (09:16→20:09)
[2018-03-30] MEDS: Metoprolol 12.5 MG TAB PO ×2 (09:16→20:08)
[2018-03-30] MEDS: Ascorbic Acid 500 MG TAB PO ×2 (09:16→20:09)
[2018-03-30] MEDS: Spironolactone 25 MG TAB 50 MG PO (09:17)
[2018-03-30 10:00] VITALS: BP 137/62; PULSE 73; RESP 18; TEMP 36.7; O2SAT 98
[2018-03-30] MEDS: Magnesium Chloride 64 MG TABCR PO ×2 (10:23→20:08)
[2018-03-30 11:40] VITALS: BP 132/67; PULSE 62; RESP 17; TEMP 36.7; O2SAT 98
[2018-03-30 16:49] VITALS: BP 147/67; PULSE 66; RESP 18; TEMP 36.1; O2SAT 95
--- NOTE | 2018-03-30 20:18 | PGE_ITS ---
Date of Service Date of service: 03/30/18 Time of Service: 20:08 Assessment and Plan (1) Sepsis: Current visit: Yes Status: Acute No bacterial process was ever fully confirmed. There is no solid proof the patient had a UTI or pyelonephritis. Her HIDA scan was negative, although she will eventually need a cholecystectomy if becomes symptomatic due to having a stone in the gallbladder neck. There is no evidence of acute hepatitis, EBV/CMV/tick-borne illness. Parvovirus serologies are not convincing (only IgG is positive). The most likely etiology for the fevers likely was viral, though it is unclear what virus. Patient has been afebrile >24 hours. D/c all antibiotics and monitor the patient overnight. If no fever, she can be d/c'ed home tomorrow. (2) Anemia: Current visit: Yes Status: Acute Heme positive with evidence of iron deficiency, likely due to slow GI bleeding, s/p transfusion. Hemoccult remains positive. Continue ferrous sulfate 325 mg PO BID and vitamin C. Has a history of cirrhosis. INR wnl, but could have varices - EGD is high risk at our facility and would likely need to have this done by GI at a tertiary care facility. Continue PPI. EGD can be done as outpatient. Patient should be referred to GI at [facility] [place] on discharge. Qualifiers: Anemia type: unspecified type Iron deficiency anemia type: Vitamin B12 deficiency anemia type: Folate deficiency anemia type: Bone marrow failure anemia type: Hemolytic anemia type: Other causes of anemia: Chronic kidney disease stage: Qualified Code(s): D64.9 - Anemia, unspecified (3) DERRELL (acute kidney injury): Current visit: Yes Status: Resolved Continue to monitor Cr on lasix and aldactone. (4) Supraventricular tachycardia, paroxysmal: Current visit: No Status: Chronic Not a part of our clinical picture today. On nadolol. (5) Diabetes mellitus type 2, controlled, without complications: Current visit: No Status: Chronic No change in tx (6) COPD (chronic obstructive pulmonary disease): Current visit: No Status: Chronic Wheezing resolved (7) Essential hypertension: Current visit: No Status: Chronic Continue nadolol (8) Cholelithiasis: Current visit: Yes Status: Chronic HIDA scan negative for cholecystitis. Likely an incidental finding. Cholecystectomy electively as outpatient at a tertiary care facility. Qualifiers: Cholelithiasis location: gallbladder Cholecystitis presence: without cholecystitis Cholangitis presence: Cholecystitis acuity: Cholangitis acuity: Biliary obstruction: without biliary obstruction Qualified Code(s): K80.20 - Calculus of gallbladder without cholecystitis without obstruction (9) SOB (shortness of breath): Current visit: Yes Status: Resolved Likely due to fluid overload/acute on chronic diastolic CHF. Resolved. (10) Non-alcoholic fatty liver disease: Current visit: No Status: Chronic Likely the etiology of the cirrhosis seen on CT. Hepatitis studies negative. (11) Gastroesophageal reflux disease: Current visit: No Status: Chronic PPI + carafate (12) DVT prophylaxis: Current visit: Yes Status: Acute Chemical DVT prophylaxis is contraindicated due to bleeding/anemia. Continue SCD's + CAREN's (13) Portal hypertension: Current visit: Yes Status: Acute likely due to cirrhosis. Continue nadolol, monitoring for bronchospasm. (14) Ascites: Current visit: Yes Status: Acute Continue aldactone. Paracenthesis impossible at this time as the amount of ascites is minimal. Qualifiers: Ascites type: other type Qualified Code(s): R18.8 - Other ascites (15) Cirrhosis: Current visit: Yes Status: Chronic New diagnosis. Etiology is, most likely, fatty liver disease/SILVESTRE. Hepatitis studies negative. Qualifiers: Hepatic cirrhosis type: unspecified hepatic cirrhosis Ascites presence: with ascites Qualified Code(s): K74.60 - Unspecified cirrhosis of liver; R18.8 - Other ascites (16) Splenomegaly: Current visit: Yes Status: Chronic Likely due to cirrhosis. Follow up as outpatient. (17) Pancytopenia: Current visit: Yes Status: Resolved Likely due to a viral process. Monitor CBC as outpatient. May need outpatient hematology follow up if CBC abnormalities recur/worsen. Subjective Interval history since last seen: Ms Nix is having a pretty good day today. She denies any dizziness, chest pain, shortness of breath, nausea, vomiting. She has less edema. Her LUQ is still bothering her, feels full. She has been afebrile x 24 hours. She feels more comfortable staying at the hospital x 24 more hours without antibiotics and making sure she does not spike another fever than going home today. I have discussed the case with [facility] [place] hematology - Dr Enid Castellano. She feels that the etiology of this patient's pancytopenia is likely not a malignancy, but it likely isn't a parvovirus either as her IgM was negative. She feels that the patient does not require further hematologic workup at this time, but will need to have a close follow up for the CBC as outpatient with her PCP, who may then choose to refer her to hematology if any of the blood cell abnormalities return/persist. Exam Narrative Exam Narrative: General: Middle aged female, seen walking in the hallways, then sitting in her chair HEENT: EOMI, MMM Heart: RRR, no m/r/g Lungs: clear to auscultation bilaterally GI: abdomen soft, mild ascites, splenomegaly Extremities: trace BLE edema, no clubbing or cyanosis Objective Objective Clinical Data: Abnormal lab results 03/24/18 03/30/18 03/30/18 Range/Units 10:53 07:05 07:05 WBC 2.50 L (4.4-10.8) k/cumm RBC 3.60 L (4.00-5.20) m/cumm Hgb 8.2 L (12.0-15.5) g/dL Hct 28.1 L (36.0-46.0) % MCV 78.1 L (80-95) fL MCH 22.8 L (27.0-33.0) pg MCHC 29.2 L (32.0-36.0) g/dL RDW 23.3 H (11.7-14.6) % Absolute Lymphocytes 0.58 L (1.2-3.4) k/cumm Glucose 187 H (70-100) mg/dL Calcium 8.3 L (8.5-10.1) mg/dL Parvovirus B19 IgG Ab Positive A (Negative) Vital Signs Temperature 36.1 C L 03/30/18 16:49 Temperature Source Tympanic 03/30/18 16:49 Pulse 66 03/30/18 16:49 Pulse Rhythm Regular 03/30/18 13:07 Respiratory Rate 18 03/30/18 16:49 Respiratory Effort 03/30/18 13:07 Respiratory Depth Normal 03/30/18 13:07 Respiratory Pattern Normal 03/30/18 13:07 Blood Pressure 147/67 H 03/30/18 16:49 Pulse Oximetry 95 03/30/18 16:49 Oxygen Delivery Method Room Air 03/30/18 16:49 Oxygen Flow Rate 0 03/30/18 16:49 Pain Level 0 03/30/18 11:40 Comment 03/30/18 03:10 Intake & Output 03/29/18 03/30/18 03/30/18 23:59 11:59 23:59 Intake Total 866 / 2006 550 / 900 350 / 900 Output Total 2300 / 3250 1300 / 2150 850 / 2150 Balance -1434 / -1244 -750 / -1250 -500 / -1250 Weight 68.2 kg Intake: IV 866 / 1766 550 / 900 350 / 900 Output: Urine 2300 / 3250 500 / 1350 850 / 1350 Stool 800 / 800 Other: Urine Color Yellow Straw Yellow Urine Appearance Clear Clear Urine Odor None Stool Occult Blood Negative Stool Size Small Copious Moderate Stool Characteristics Soft Soft Liquid Liquid Brown Green Voiding Methods Toilet Toilet Laboratory Results WBC 2.50 k/cumm (4.4-10.8) L 03/30/18 07:05 RBC 3.60 m/cumm (4.00-5.20) L 03/30/18 07:05 Hgb 8.2 g/dL (12.0-15.5) L 03/30/18 07:05 Hct 28.1 % (36.0-46.0) L 03/30/18 07:05 MCV 78.1 fL (80-95) L 03/30/18 07:05 MCH 22.8 pg (27.0-33.0) L 03/30/18 07:05 MCHC 29.2 g/dL (32.0-36.0) L 03/30/18 07:05 RDW 23.3 % (11.7-14.6) H 03/30/18 07:05 Plt Count 209 x1000/uL (130-400) 03/30/18 07:05 MPV 9.9 fL (8.0-11.0) 03/30/18 07:05 Immature Gran % 0.0 03/30/18 07:05 Neutrophils % 63.6 03/30/18 07:05 Lymphocytes % 23.2 03/30/18 07:05 Monocytes % 11.2 03/30/18 07:05 Eosinophils % 1.6 03/30/18 07:05 Basophils % 0.4 03/30/18 07:05 Absolute Neutrophils 1.59 k/cumm (1.2-6.7) 03/30/18 07:05 Band Neutrophils 4.0 % 03/24/18 04:55 Absolute Lymphocytes 0.58 k/cumm (1.2-3.4) L 03/30/18 07:05 Absolute Monocytes 0.28 k/cumm (0.11-0.7) 03/30/18 07:05 Absolute Eosinophils 0.04 k/cumm (0.0-0.7) 03/30/18 07:05 Absolute Basophils 0.01 k/cumm (0.0-0.2) 03/30/18 07:05 Metamyelocytes 1.0 % 03/23/18 07:07 Nucleated RBCs 1 /100WBC 03/21/18 14:27 Differential Comment Rbc morph reviewed 03/25/18 07:00 RBC Morphology See below 03/24/18 04:55 Polychromasia Present 03/24/18 04:55 Hypochromasia 2+ 03/25/18 07:00 Poikilocytosis 1+ 03/24/18 04:55 Basophilic Stippling 1+ 03/25/18 07:00 Anisocytosis 3+ 03/25/18 07:00 Microcytosis 3+ 03/25/18 07:00 Ovalocytes 2+ 03/25/18 07:00 ESR 60 MM/HR (0-30) H 03/21/18 14:27 Haptoglobin 150 mg/dL (32-197) 03/25/18 07:00 PT 11.0 sec (9.3-11.0) 03/25/18 12:45 INR 1.1 (0.9-1.1) 03/25/18 12:45 APTT 25.0 sec (21.0-31.4) 03/25/18 12:45 D-Dimer 3176 ng/mlFEU (<500) H 03/24/18 06:00 Heparin Anti-Xa Level 0.16 IU/mL 03/23/18 10:55 Sample Site Right radial 03/24/18 10:57 pCO2 30 mmHg (34-47) L 03/24/18 10:57 pO2 93 mmHg (83-108) 03/24/18 10:57 O2 Saturation 99 % (94-98) H 03/24/18 10:57 ABG pH 7.45 (7.35-7.45) 03/24/18 10:57 ABG HCO3 21 mmol/L (22-28) L 03/24/18 10:57 ABG Total CO2 20 mmol/L (22-29) L 03/24/18 10:57 ABG Base Excess -3.4 mmol/L (-3-3) L 03/24/18 10:57 Oxygen Liter Flow 2 L 03/24/18 10:57 Sodium 143 mmol/L (136-145) 03/30/18 07:05 Potassium 3.5 mmol/L (3.5-5.1) 03/30/18 07:05 Chloride 104 mmol/L (98-107) 03/30/18 07:05 Carbon Dioxide 32.0 mmol/L (21.0-32.0) 03/30/18 07:05 Anion Gap 7.0 mmol/L (3-11) 03/30/18 07:05 BUN 7 mg/dL (7-18) 03/30/18 07:05 Creatinine 0.66 mg/dL (0.55-1.02) 03/30/18 07:05 Estimated GFR/1.73 m2 >= 60.00 (mL/min/1.73m2) 03/30/18 07:05 Glucose 187 mg/dL (70-100) H 03/30/18 07:05 Lactate 1.4 mmol/L (0.6-1.4) 03/23/18 07:07 Calcium 8.3 mg/dL (8.5-10.1) L 03/30/18 07:05 Magnesium 2.2 mg/dL (1.8-2.4) 03/30/18 07:05 Iron 29 ug/dL (50-175) L 03/22/18 16:10 TIBC 323 ug/dL (250-450) 03/22/18 16:10 Transferrin Cancelled 03/22/18 08:25 Transferrin % Sat 9 % (15-50) L 03/22/18 16:10 Ferritin 34 ng/mL (8-388) 03/22/18 06:58 Total Bilirubin 1.1 mg/dL (0.2-1.0) H 03/27/18 06:45 Conjugated Bilirubin 0.58 mg/dL (0.00-0.20) H 03/27/18 06:45 AST 38 U/L (15-37) H 03/27/18 06:45 ALT 30 U/L (12-78) 03/27/18 06:45 Alkaline Phosphatase 128 U/L (46-116) H 03/27/18 06:45 Creatine Kinase 64 U/L (26-192) 03/23/18 07:07 C-Reactive Protein 3.35 mg/dL (0.0-0.3) H 03/21/18 14:27 Total Protein 5.9 g/dL (6.4-8.2) L 03/27/18 06:45 Albumin 2.4 g/dL (3.4-5.0) L 03/27/18 06:45 Lipase 341 U/L (73-393) 03/25/18 07:00 Urine Color Yellow (Yellow) 03/24/18 09:50 Urine Clarity Clear 03/24/18 09:50 Urine pH 5.5 (5-8) 03/24/18 09:50 Ur Specific [place] 1.015 (1.005-1.025) 03/24/18 09:50 Urine Protein Negative mg/dL (Negative) 03/24/18 09:50 Urine Ketones 15 mg/dL (Negative) H 03/24/18 09:50 Urine Blood Negative (Negative) 03/24/18 09:50 Urine Nitrite Negative (Negative) 03/24/18 09:50 Urine Bilirubin Negative (Negative) 03/24/18 09:50 Urine Urobilinogen 0.2 EU/dL (Up TO 0.2) 03/24/18 09:50 Ur Leukocyte Esterase Negative (Negative) 03/24/18 09:50 Urine RBC Not Applicable 03/21/18 15:25 Urine WBC HPF (0-5) 03/21/18 15:25 Ur Epithelial Cells Not Applicable 03/21/18 15:25 Urine Crystals Not Applicable 03/21/18 15:25 Urine Bacteria Packed HPF (Negative) 03/21/18 15:25 Urine Mucus Not Applicable 03/21/18 15:25 Ur Culture Indicated? Yes 03/21/18 15:25 Urine Glucose Negative mg/dL (Negative) 03/24/18 09:50 Vancomycin Trough 27.4 ug/mL (10.0-20.0) H* 03/29/18 06:35 A.phagocytophil DNA PCR Negative (Negative) 03/24/18 12:31 B. divergens/MO-1 PCR Negative (Negative) 03/24/18 12:31 Babesia duncani (PCR) Negative (Negative) 03/24/18 12:31 Babesia microti DNA PCR Negative (Negative) 03/24/18 12:31 Borrelia (PCR) Negative (Negative) 03/24/18 12:31 Lyme Disease Antibody Negative 03/24/18 12:31 CMV IgG Ab Negative 03/26/18 07:00 CMV IgM Ab Negative (Negative) 03/26/18 07:00 E.chaffeensis DNA (PCR) Negative (Negative) 03/24/18 12:31 E.ewingii/canis DNA PCR Negative (Negative) 03/24/18 12:31 E. muris-like DNA (PCR) Negative (Negative) 03/24/18 12:31 EBV DNA, Quant Undetected IU/mL (Undetected) 03/26/18 07:00 Hep Bs Antigen Negative (NEGAT) 03/25/18 07:00 Hep Bs Antibody Negative 03/25/18 07:00 Hep Bs Antibody, Quant 3.5 mIU/mL 03/25/18 07:00 Hep B Core Total Ab Negative (NEGAT) 03/25/18 07:00 Hepatitis C Antibody Negative (NEGAT) 03/25/18 07:00 Monoscreen Negative (Negative) 03/24/18 04:55 Parvovirus Source Plasma 03/24/18 10:53 Parvovirus B19 IgG Ab Positive (Negative) A 03/24/18 10:53 Parvovirus B19 IgM Ab Negative (Negative) 03/24/18 10:53 Parvov B19 DNA Rpd PCR Negative 03/24/18 10:53 Parvovirus Interpret See below 03/24/18 10:53 Path Cons Comment 03/21/18 14:27 Patient ABO/Rh A Positive 03/25/18 11:47 Antibody Screen Negative 03/25/18 11:47 Crossmatch See Detail 03/25/18 11:47 Reaction Clerical Check No clerical errors 03/25/18 16:25 Clerical Work Check Cancelled 03/24/18 09:44 Pre-Trans Blood Type A Positive 03/25/18 16:25 Pre-Trans Bld Appearanc No hemolysis/icterus 03/25/18 16:25 Pre-Trans VINNY Not Applicable 03/25/18 16:25 Post-Trans Blood Type A Positive 03/25/18 16:25 Post-Trans Spec Appear No hemolysis/icterus 03/25/18 16:25 Post-Trans VINNY Negative 03/25/18 16:25 Reaction Pathol Review Negative-complete 03/25/18 16:25
[2018-03-30] MEDS: Pravastatin 20 MG TAB 10 MG PO (21:15)
[2018-03-30 22:24] VITALS: BP 142/63; PULSE 69; RESP 18; TEMP 36.1; O2SAT 96
[2018-03-31 00:25] VITALS: BP 175/84; PULSE 69; RESP 18; TEMP 36.3; O2SAT 96
[2018-03-31] MEDS: ACETAMINOPHEN 1,000 MG/100 ML BTL 400 MG IVPB ×3 (01:22→17:49)
--- NOTE | 2018-03-31 04:34 | NUR.NOTE ---
Nursing Note: Patient is in good spirit, verbalized of going home today. No fever. Denied of pain when asked. Independent to bathroom and antibiotics well tolerated and no untoward reactions observed. Will continue to monitor. Call lights at reach.
[2018-03-31 07:15] LABS: Abs Immature Grans 0.01 k/cumm (0.0-0.09); Absolute Basophil Count 0.01 k/cumm (0.0-0.2); Absolute Eosinophil Count 0.06 k/cumm (0.0-0.7); Absolute Lymphocyte Count 0.76 k/cumm (1.2-3.4); Absolute Monocyte Count 0.24 k/cumm (0.11-0.7); Absolute Neutrophil Count 1.49 k/cumm (1.2-6.7); Basophils % 0.4; Eosinophils % 2.3; HCT 27.3 % (36.0-46.0); HGB 7.8 g/dL (12.0-15.5); Immature Grans % 0.4; Lymphocytes % 29.6; Mean Corp. HGB Concentration 28.6 g/dL (32.0-36.0); Mean Corpuscular Hemoglobin 22.7 pg (27.0-33.0); Mean Corpuscular Volume 79.4 fL (80-95); Mean Platelet Volume 9.9 fL (8.0-11.0); Monocytes % 9.3; Platelet Count 224 x1000/uL (130-400); RBC 3.44 m/cumm (4.00-5.20); RBC Distribution Width 23.4 % (11.7-14.6); White Blood Cell Count 2.57 k/cumm (4.4-10.8)
[2018-03-31 07:34] LABS: Anion Gap 4.9 mmol/L (3-11); BUN 6 mg/dL (7-18); CO2 33.1 mmol/L (21.0-32.0); CREATININE 0.63 mg/dL (0.55-1.02); Calcium 8.5 mg/dL (8.5-10.1); Chloride 104 mmol/L (98-107); Glucose 165 mg/dL (70-100); Magnesium 2.2 mg/dL (1.8-2.4); Potassium 3.5 mmol/L (3.5-5.1); Sodium 142 mmol/L (136-145)
[2018-03-31 07:45] VITALS: BP 156/94; PULSE 66; RESP 18; TEMP 36.5; O2SAT 97
[2018-03-31] MEDS: Insulin Aspart 300 UNITS/3 ML PEN SC ×3 (08:30→17:37)
[2018-03-31] MEDS: Furosemide 20 MG TAB 40 MG PO ×2 (08:30→15:58)
[2018-03-31] MEDS: Nadolol 40 MG TAB 10 MG PO (08:31)
[2018-03-31] MEDS: Ferrous Sulfate 325 MG TAB PO ×2 (08:31→21:36)
[2018-03-31] MEDS: Ascorbic Acid 500 MG TAB PO ×2 (08:31→21:37)
[2018-03-31] MEDS: Pantoprazole 40 MG VIAL IVP ×2 (08:32→21:37)
[2018-03-31] MEDS: Normal Saline Flush 10 ML SYR IVP ×2 (08:32→21:36)
[2018-03-31] MEDS: Spironolactone 25 MG TAB 50 MG PO (08:32)
[2018-03-31] MEDS: Magnesium Chloride 64 MG TABCR PO ×2 (08:32→21:36)
[2018-03-31] MEDS: Sucralfate 1 GM TAB PO ×4 (08:32→21:37)
[2018-03-31] MEDS: Metoprolol 12.5 MG TAB PO (08:32)
--- NOTE | 2018-03-31 09:31 | PDOC.CMPRO ---
Care Management Progress Note S/O: Alayna and Seymour were sitting talking when CM entered the room. They processed their feelings around updates including possible discharge and both advocated for direct transfer to [facility] [place]. CM relayed this information to MD. CM also agreed to support Alayna and Seymour in securing a GI follow up appointment at [facility] [place] in the event Alayna is discharged from [facility] over the weekend. Alayna remains afebrile. CM will continue to follow. A: 67 year old female admitted to [facility] 03/21/17 for Pyelonephritis P: Alayna will return home with no additional services at this time and will have outpatient follow up with GI at tertiary facility for endoscopy colonoscopy. She will transport via private vehicle with her , Seymour. Per MD, Alayna may require transfer to tertiary facility-in this event she would transport via EMS.
--- NOTE | 2018-03-31 09:34 | CMPROGNOTE_ITS ---
Care Management Progress Note S/O: Alayna and Seymour were sitting talking when CM entered the room. They processed their feelings around updates including possible discharge and both advocated for direct transfer to [facility] [place]. CM relayed this information to MD. CM also agreed to support Alayna and Seymour in securing a GI follow up appointment at [facility] [place] in the event Alayna is discharged from [facility] over the weekend. Alayna remains afebrile. CM will continue to follow. A: 67 year old female admitted to [facility] 03/21/17 for Pyelonephritis P: Alayna will return home with no additional services at this time and will have outpatient follow up with GI at tertiary facility for endoscopy colonoscopy. She will transport via private vehicle with her , Seymour. Per MD, Alayna may require transfer to tertiary facility-in this event she would transport via EMS.
[2018-03-31] MEDS: Potassium Chloride 20 MEQ TABCR 40 MEQ PO (09:58)
[2018-03-31 11:35] VITALS: BP 142/75; PULSE 64; RESP 18; TEMP 37; O2SAT 95
[2018-03-31 16:36] VITALS: BP 140/68; PULSE 65; RESP 18; TEMP 36.4; O2SAT 97
--- NOTE | 2018-03-31 18:24 | W.PM.PROGNOT ---
Date of Service Date of service: 03/31/18 Time of Service: 18:24 Assessment and Plan (1) Sepsis: Current visit: Yes Status: Acute Evidence of tachycardia, hypotension, fever, elevated Lactate, and low WBC - all initially thought due to infection and with a urinary source - however, culture with >100,000 of mixed Gram Negative colony thought secondary to contaminant. Also atelectasis vs. pneumonia by CT. Patient had worsening leukopenia and development of pancytopenia with bandemia. No bacterial process was ever fully confirmed. No definitive UTI or pyelonephritis. HIDA scan was negative. There is no evidence of acute hepatitis, EBV/CMV/tick-borne illness. Parvovirus serologies are not convincing (only IgG is positive). Patient has been afebrile >48 hours. Completed a course of Vancomycin and Meropenem. (2) Anemia: Current visit: Yes Status: Acute Evidence of heme + stool and significantly low hemoglobin - s/p transfusion. History of GERD reported, with recent worsening symptoms despite oral PPI therapy. Maintain on BID IV PPI with added sucralfate, with continued mild drop in hemoglobin. Needs EGD/Colonoscopy - due to potential for varicieal disease, although none commented on by CT, will defer to GI for endoscopy. Case discussed with [facility] who agress on short turn around EGD as outpatient. Continue Ferrous Sulfate with Vitamin C. Qualifiers: Anemia type: unspecified type Bone marrow failure anemia type: Chronic kidney disease stage: Folate deficiency anemia type: Hemolytic anemia type: Iron deficiency anemia type: Other causes of anemia: Vitamin B12 deficiency anemia type: Qualified Code(s): D64.9 - Anemia, unspecified (3) Fever and chills: Current visit: Yes Status: Acute On basis of UTI with sepsis as above. (4) DERRELL (acute kidney injury): Current visit: Yes Status: Resolved Appears resolved with hydration. Renal ultrasound normal. (5) Supraventricular tachycardia, paroxysmal: Current visit: No Status: Chronic History of Paroxysmal SVT - currently maintained on telemetry. BB on hold due to hypotension - would reinitiate as soon as able. (6) Diabetes mellitus type 2, controlled, without complications: Current visit: No Status: Chronic Holding Metformin, Glimepiride, and Liraglutide, but on basal insulin. Continue sliding scale coverage, ADA diet. (7) COPD (chronic obstructive pulmonary disease): Current visit: No Status: Chronic Appears quiescent. Duonebs prn. (8) Essential hypertension: Current visit: No Status: Chronic Holding ARB, BB, and thiazide in setting of hypotension and infection. Reinitiate when appropriate. (9) DVT prophylaxis: Current visit: Yes Status: Acute SCDs. No chemical DVT prophylaxis in setting of GI Bleed. Subjective Interval history since last seen: 67 year old woman with a history of SILVESTRE, admitted from [facility] Emergency Department on 03/21 with a diagnosis of anemia and GI Bleed, along with significant leukopenia and enventual development of pancytopenia. Mrs. Nix has a history of PSVTs, DM, COPD, and HTN. She was admitted with evidence of a heme + iron deficient anemia, and potential evidence of a UTI. Her original Urine Culture grew a mixed gram negative amari thought possible contaminant, with repeat urinalysis negative (although on broad spectrum antibiotics). Due to development of pancytopenia further work-up was taken that included negative CXR and CT of the chest (b/l atelectasis with pneumonia not ruled out), CT of the abdomen, and serology for EBV, CMV, and Hepatitis. Her Parvovirus was positive to IgG only, with a negative IgM. Her tick panel was also checked and negative. Her platelet count is now normalized, with WBC that remains low but stable. Additionally she had evidence of Cirrhosis by imaging, with small ascites, which is a new diagnosis for her. Due to the presence of gallstones a HIDA scan was obtained and also negative. She also has evidence of Diastolic Dysfunction and Moderate MR by ECHO. This morning she is unchanged in symptoms, and no overnight events were reported. Remains afebrile. Exam Narrative Exam Narrative: General: Patient appears comfortable, pale appearing, AAOX3, NAD Neck: Supple CV: Regular, nontachycardic, S1S2, No rubs, murmurs, or gallops. Pulmonary: Clear to auscultation bilaterally, no crackles, wheezing, or rhonchi Abdomen: + Bowel Sounds, soft, nondistended. Prior mild epigastric/RUQ/LUQ tenderness on palpation appears resolved. Vascular: No lower extremity edema Psych: Normal mood and affect. Objective Objective Clinical Data: Abnormal lab results 03/31/18 03/31/18 Range/Units 06:20 06:20 WBC 2.57 L (4.4-10.8) k/cumm RBC 3.44 L (4.00-5.20) m/cumm Hgb 7.8 L (12.0-15.5) g/dL Hct 27.3 L (36.0-46.0) % MCV 79.4 L (80-95) fL MCH 22.7 L (27.0-33.0) pg MCHC 28.6 L (32.0-36.0) g/dL RDW 23.4 H (11.7-14.6) % Absolute Lymphocytes 0.76 L (1.2-3.4) k/cumm Carbon Dioxide 33.1 H (21.0-32.0) mmol/L BUN 6 L (7-18) mg/dL Glucose 165 H (70-100) mg/dL Vital Signs Temperature 36.4 C L 03/31/18 16:36 Temperature Source Tympanic 03/31/18 16:36 Pulse 65 03/31/18 16:36 Pulse Rhythm Regular 03/31/18 10:56 Respiratory Rate 18 03/31/18 16:36 Respiratory Effort 03/31/18 10:56 Respiratory Depth Normal 03/31/18 10:56 Respiratory Pattern Normal 03/31/18 10:56 Blood Pressure 140/68 03/31/18 16:36 Pulse Oximetry 97 03/31/18 16:36 Oxygen Delivery Method Room Air 03/31/18 16:36 Oxygen Flow Rate 0 03/31/18 16:36 Pain Level 2 03/31/18 07:45 Comment 03/30/18 03:10 Intake & Output 03/30/18 03/31/18 03/31/18 23:59 11:59 23:59 Intake Total 450 / 1000 600 / 600 Output Total 1300 / 2600 Balance -850 / -1600 600 / 600 Weight 68.2 kg Intake: IV 450 / 1000 200 / 200 Oral 400 / 400 Output: Urine 1300 / 1800 Other: Urine Color Yellow Urine Appearance Clear Clear Urine Odor None Stool Size Moderate Stool Characteristics Liquid Voiding Methods Toilet Laboratory Results WBC 2.57 k/cumm (4.4-10.8) L 03/31/18 06:20 RBC 3.44 m/cumm (4.00-5.20) L 03/31/18 06:20 Hgb 7.8 g/dL (12.0-15.5) L 03/31/18 06:20 Hct 27.3 % (36.0-46.0) L 03/31/18 06:20 MCV 79.4 fL (80-95) L 03/31/18 06:20 MCH 22.7 pg (27.0-33.0) L 03/31/18 06:20 MCHC 28.6 g/dL (32.0-36.0) L 03/31/18 06:20 RDW 23.4 % (11.7-14.6) H 03/31/18 06:20 Plt Count 224 x1000/uL (130-400) 03/31/18 06:20 MPV 9.9 fL (8.0-11.0) 03/31/18 06:20 Immature Gran % 0.4 03/31/18 06:20 Neutrophils % 58.0 03/31/18 06:20 Lymphocytes % 29.6 03/31/18 06:20 Monocytes % 9.3 03/31/18 06:20 Eosinophils % 2.3 03/31/18 06:20 Basophils % 0.4 03/31/18 06:20 Absolute Neutrophils 1.49 k/cumm (1.2-6.7) 03/31/18 06:20 Band Neutrophils 4.0 % 03/24/18 04:55 Absolute Lymphocytes 0.76 k/cumm (1.2-3.4) L 03/31/18 06:20 Absolute Monocytes 0.24 k/cumm (0.11-0.7) 03/31/18 06:20 Absolute Eosinophils 0.06 k/cumm (0.0-0.7) 03/31/18 06:20 Absolute Basophils 0.01 k/cumm (0.0-0.2) 03/31/18 06:20 Metamyelocytes 1.0 % 03/23/18 07:07 Nucleated RBCs 1 /100WBC 03/21/18 14:27 Differential Comment Rbc morph reviewed 03/25/18 07:00 RBC Morphology See below 03/24/18 04:55 Polychromasia Present 03/24/18 04:55 Hypochromasia 2+ 03/25/18 07:00 Poikilocytosis 1+ 03/24/18 04:55 Basophilic Stippling 1+ 03/25/18 07:00 Anisocytosis 3+ 03/25/18 07:00 Microcytosis 3+ 03/25/18 07:00 Ovalocytes 2+ 03/25/18 07:00 ESR 60 MM/HR (0-30) H 03/21/18 14:27 Haptoglobin 150 mg/dL (32-197) 03/25/18 07:00 PT 11.0 sec (9.3-11.0) 03/25/18 12:45 INR 1.1 (0.9-1.1) 03/25/18 12:45 APTT 25.0 sec (21.0-31.4) 03/25/18 12:45 D-Dimer 3176 ng/mlFEU (<500) H 03/24/18 06:00 Heparin Anti-Xa Level 0.16 IU/mL 03/23/18 10:55 Sample Site Right radial 03/24/18 10:57 pCO2 30 mmHg (34-47) L 03/24/18 10:57 pO2 93 mmHg (83-108) 03/24/18 10:57 O2 Saturation 99 % (94-98) H 03/24/18 10:57 ABG pH 7.45 (7.35-7.45) 03/24/18 10:57 ABG HCO3 21 mmol/L (22-28) L 03/24/18 10:57 ABG Total CO2 20 mmol/L (22-29) L 03/24/18 10:57 ABG Base Excess -3.4 mmol/L (-3-3) L 03/24/18 10:57 Oxygen Liter Flow 2 L 03/24/18 10:57 Sodium 142 mmol/L (136-145) 03/31/18 06:20 Potassium 3.5 mmol/L (3.5-5.1) 03/31/18 06:20 Chloride 104 mmol/L (98-107) 03/31/18 06:20 Carbon Dioxide 33.1 mmol/L (21.0-32.0) H 03/31/18 06:20 Anion Gap 4.9 mmol/L (3-11) 03/31/18 06:20 BUN 6 mg/dL (7-18) L 03/31/18 06:20 Creatinine 0.63 mg/dL (0.55-1.02) 03/31/18 06:20 Estimated GFR/1.73 m2 >= 60.00 (mL/min/1.73m2) 03/31/18 06:20 Glucose 165 mg/dL (70-100) H 03/31/18 06:20 Lactate 1.4 mmol/L (0.6-1.4) 03/23/18 07:07 Calcium 8.5 mg/dL (8.5-10.1) 03/31/18 06:20 Magnesium 2.2 mg/dL (1.8-2.4) 03/31/18 06:20 Iron 29 ug/dL (50-175) L 03/22/18 16:10 TIBC 323 ug/dL (250-450) 03/22/18 16:10 Transferrin Cancelled 03/22/18 08:25 Transferrin % Sat 9 % (15-50) L 03/22/18 16:10 Ferritin 34 ng/mL (8-388) 03/22/18 06:58 Total Bilirubin 1.1 mg/dL (0.2-1.0) H 03/27/18 06:45 Conjugated Bilirubin 0.58 mg/dL (0.00-0.20) H 03/27/18 06:45 AST 38 U/L (15-37) H 03/27/18 06:45 ALT 30 U/L (12-78) 03/27/18 06:45 Alkaline Phosphatase 128 U/L (46-116) H 03/27/18 06:45 Creatine Kinase 64 U/L (26-192) 03/23/18 07:07 C-Reactive Protein 3.35 mg/dL (0.0-0.3) H 03/21/18 14:27 Total Protein 5.9 g/dL (6.4-8.2) L 03/27/18 06:45 Albumin 2.4 g/dL (3.4-5.0) L 03/27/18 06:45 Lipase 341 U/L (73-393) 03/25/18 07:00 Urine Color Yellow (Yellow) 03/24/18 09:50 Urine Clarity Clear 03/24/18 09:50 Urine pH 5.5 (5-8) 03/24/18 09:50 Ur Specific [place] 1.015 (1.005-1.025) 03/24/18 09:50 Urine Protein Negative mg/dL (Negative) 03/24/18 09:50 Urine Ketones 15 mg/dL (Negative) H 03/24/18 09:50 Urine Blood Negative (Negative) 03/24/18 09:50 Urine Nitrite Negative (Negative) 03/24/18 09:50 Urine Bilirubin Negative (Negative) 03/24/18 09:50 Urine Urobilinogen 0.2 EU/dL (Up TO 0.2) 03/24/18 09:50 Ur Leukocyte Esterase Negative (Negative) 03/24/18 09:50 Urine RBC Not Applicable 03/21/18 15:25 Urine WBC HPF (0-5) 03/21/18 15:25 Ur Epithelial Cells Not Applicable 03/21/18 15:25 Urine Crystals Not Applicable 03/21/18 15:25 Urine Bacteria Packed HPF (Negative) 03/21/18 15:25 Urine Mucus Not Applicable 03/21/18 15:25 Ur Culture Indicated? Yes 03/21/18 15:25 Urine Glucose Negative mg/dL (Negative) 03/24/18 09:50 Vancomycin Trough 27.4 ug/mL (10.0-20.0) H* 03/29/18 06:35 A.phagocytophil DNA PCR Negative (Negative) 03/24/18 12:31 B. divergens/MO-1 PCR Negative (Negative) 03/24/18 12:31 Babesia duncani (PCR) Negative (Negative) 03/24/18 12:31 Babesia microti DNA PCR Negative (Negative) 03/24/18 12:31 Borrelia (PCR) Negative (Negative) 03/24/18 12:31 Lyme Disease Antibody Negative 03/24/18 12:31 CMV IgG Ab Negative 03/26/18 07:00 CMV IgM Ab Negative (Negative) 03/26/18 07:00 E.chaffeensis DNA (PCR) Negative (Negative) 03/24/18 12:31 E.ewingii/canis DNA PCR Negative (Negative) 03/24/18 12:31 E. muris-like DNA (PCR) Negative (Negative) 03/24/18 12:31 EBV DNA, Quant Undetected IU/mL (Undetected) 03/26/18 07:00 Hep Bs Antigen Negative (NEGAT) 03/25/18 07:00 Hep Bs Antibody Negative 03/25/18 07:00 Hep Bs Antibody, Quant 3.5 mIU/mL 03/25/18 07:00 Hep B Core Total Ab Negative (NEGAT) 03/25/18 07:00 Hepatitis C Antibody Negative (NEGAT) 03/25/18 07:00 Monoscreen Negative (Negative) 03/24/18 04:55 Parvovirus Source Plasma 03/24/18 10:53 Parvovirus B19 IgG Ab Positive (Negative) A 03/24/18 10:53 Parvovirus B19 IgM Ab Negative (Negative) 03/24/18 10:53 Parvov B19 DNA Rpd PCR Negative 03/24/18 10:53 Parvovirus Interpret See below 03/24/18 10:53 Path Cons Comment 03/21/18 14:27 Patient ABO/Rh A Positive 03/25/18 11:47 Antibody Screen Negative 03/25/18 11:47 Crossmatch See Detail 03/25/18 11:47 Reaction Clerical Check No clerical errors 03/25/18 16:25 Clerical Work Check Cancelled 03/24/18 09:44 Pre-Trans Blood Type A Positive 03/25/18 16:25 Pre-Trans Bld Appearanc No hemolysis/icterus 03/25/18 16:25 Pre-Trans VINNY Not Applicable 03/25/18 16:25 Post-Trans Blood Type A Positive 03/25/18 16:25 Post-Trans Spec Appear No hemolysis/icterus 03/25/18 16:25 Post-Trans VINNY Negative 03/25/18 16:25 Reaction Pathol Review Negative-complete 03/25/18 16:25
--- NOTE | 2018-03-31 18:59 | PGE_ITS ---
Date of Service Date of service: 03/31/18 Time of Service: 18:47 Assessment and Plan (1) Sepsis: Current visit: Yes Status: Acute Evidence of tachycardia, hypotension, fever, elevated Lactate, and low WBC, initially attributed to urinary source. Development of worsening WBC and development of pancytopenia with bandemia. Bacterial process never confirmed, with no definitive proof of UTI or pyelonephritis. CT showed atelectasis vs. pneumonia, but without pulmonary symptoms. HIDA scan negative in setting of gallstones. There is no evidence of acute hepatitis, EBV/CMV/tick-borne illness. Parvovirus serologies are not convincing (only IgG is positive). Blood Cultures negative. Underwent course of antibiotic therapy with Vancomycin and Meropenem.Patient has now been afebrile >48 hours. (2) Anemia: Current visit: Yes Status: Acute Heme positive with evidence of iron deficiency, likely due to slow GI bleeding, s/p transfusion. Hemoccult remains positive despite BID IV PPI and QID Carafate. No evidence of variceal disease by imaging, but cannot definitively rule this out and as such EGD would be better suited to be undertaken via GI at [facility] facility. Discussed case with GI at [facility] [place] who agress on short course endoscopy as outpatient and will help facilitate. Continue Iron and vitamin C. Monitor am Hgb. Qualifiers: Anemia type: unspecified type Iron deficiency anemia type: Vitamin B12 deficiency anemia type: Folate deficiency anemia type: Bone marrow failure anemia type: Hemolytic anemia type: Other causes of anemia: Chronic kidney disease stage: Qualified Code(s): D64.9 - Anemia, unspecified (3) DERRELL (acute kidney injury): Current visit: Yes Status: Resolved Resolved. (4) Cirrhosis: Current visit: Yes Status: Chronic New diagnosis in patient with history of SILVESTRE/Fatty liver disease. Will Need GI follow-up long-term. Currently on Spironolactone due to concurrent small ascites. INR normal. 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 Qualifiers: Hepatic cirrhosis type: unspecified hepatic cirrhosis Ascites presence: with ascites Qualified Code(s): K74.60 - Unspecified cirrhosis of liver; R18.8 - Other ascites (5) Ascites: Current visit: Yes Status: Acute Amount not sufficient to attempt paracentesis. Ascites in setting of new diagnosis of Cirrhosis. Continue Spironolactone. Qualifiers: Ascites type: other type Qualified Code(s): R18.8 - Other ascites (6) Pancytopenia: Current visit: Yes Status: Resolved Anemia is ongoing blood loss, and thrombocytopenia has resolved. Unsure of etiology for low WBC but has improved and appears stable. Needs follow-up repeat CBC with potential hematology follow-up if not resolving. (7) Supraventricular tachycardia, paroxysmal: Current visit: No Status: Chronic Discontinue low dose Metoprolol in favor of Nadolol, as above. (8) DVT prophylaxis: Current visit: Yes Status: Acute Mechanical DVT prophylaxis given current GI Blood Loss. Subjective Interval history since last seen: 67 year old woman with a history of SILVESTRE, admitted from [facility] Emergency Department on 03/21 with a diagnosis of anemia and GI Bleed, along with significant leukopenia and enventual development of pancytopenia. Mrs. Nix has a history of PSVTs, DM, COPD, and HTN. She was admitted with evidence of a heme + iron deficient anemia, and potential evidence of a UTI. Her original Urine Culture grew a mixed gram negative amari thought possible contaminant, with repeat urinalysis negative (although on broad spectrum antibiotics). Due to development of pancytopenia further work-up was taken that included negative CXR and CT of the chest (b/l atelectasis with pneumonia not ruled out), CT of the abdomen, and serology for EBV, CMV, and Hepatitis. Her Parvovirus was positive to IgG only, with a negative IgM. Her tick panel was also checked and negative. Her platelet count is now normalized, with WBC that r emains low but stable. Additionally she had evidence of Cirrhosis by imaging, with small ascites, which is a new diagnosis for her. Due to the presence of gallstones a HIDA scan was obtained and also negative. She also has evidence of Diastolic Dysfunction and Moderate MR by ECHO. This morning she is unchanged in symptoms, and no overnight events were reported. Remains afebrile. Exam Narrative Exam Narrative: Exam Narrative: General: Patient appears comfortable, pale appearing, AAOX3, NAD Neck: Supple CV: Regular, nontachycardic, S1S2, No rubs, murmurs, or gallops. Pulmonary: Clear to auscultation bilaterally, no crackles, wheezing, or rhonchi Abdomen: + Bowel Sounds, soft, nondistended. Previous mild epigastric/RUQ/LUQ tenderness on palpation appears improved. Vascular: No lower extremity edema Psych: Normal mood and affect. Objective Objective Clinical Data: Abnormal lab results 03/31/18 03/31/18 Range/Units 06:20 06:20 WBC 2.57 L (4.4-10.8) k/cumm RBC 3.44 L (4.00-5.20) m/cumm Hgb 7.8 L (12.0-15.5) g/dL Hct 27.3 L (36.0-46.0) % MCV 79.4 L (80-95) fL MCH 22.7 L (27.0-33.0) pg MCHC 28.6 L (32.0-36.0) g/dL RDW 23.4 H (11.7-14.6) % Absolute Lymphocytes 0.76 L (1.2-3.4) k/cumm Carbon Dioxide 33.1 H (21.0-32.0) mmol/L BUN 6 L (7-18) mg/dL Glucose 165 H (70-100) mg/dL Vital Signs Temperature 36.4 C L 03/31/18 16:36 Temperature Source Tympanic 03/31/18 16:36 Pulse 65 03/31/18 16:36 Pulse Rhythm Regular 03/31/18 10:56 Respiratory Rate 18 03/31/18 16:36 Respiratory Effort 03/31/18 10:56 Respiratory Depth Normal 03/31/18 10:56 Respiratory Pattern Normal 03/31/18 10:56 Blood Pressure 140/68 03/31/18 16:36 Pulse Oximetry 97 03/31/18 16:36 Oxygen Delivery Method Room Air 03/31/18 16:36 Oxygen Flow Rate 0 03/31/18 16:36 Pain Level 2 03/31/18 07:45 Comment 03/30/18 03:10 Intake & Output 03/30/18 03/31/18 03/31/18 23:59 11:59 23:59 Intake Total 450 / 1000 600 / 960 360 / 960 Output Total 1300 / 2600 Balance -850 / -1600 600 / 960 360 / 960 Weight 68.2 kg Intake: IV 450 / 1000 200 / 200 Oral 400 / 760 360 / 760 Output: Urine 1300 / 1800 Other: Urine Color Yellow Urine Appearance Clear Clear Urine Odor None Stool Size Moderate Stool Characteristics Liquid Voiding Methods Toilet Laboratory Results WBC 2.57 k/cumm (4.4-10.8) L 03/31/18 06:20 RBC 3.44 m/cumm (4.00-5.20) L 03/31/18 06:20 Hgb 7.8 g/dL (12.0-15.5) L 03/31/18 06:20 Hct 27.3 % (36.0-46.0) L 03/31/18 06:20 MCV 79.4 fL (80-95) L 03/31/18 06:20 MCH 22.7 pg (27.0-33.0) L 03/31/18 06:20 MCHC 28.6 g/dL (32.0-36.0) L 03/31/18 06:20 RDW 23.4 % (11.7-14.6) H 03/31/18 06:20 Plt Count 224 x1000/uL (130-400) 03/31/18 06:20 MPV 9.9 fL (8.0-11.0) 03/31/18 06:20 Immature Gran % 0.4 03/31/18 06:20 Neutrophils % 58.0 03/31/18 06:20 Lymphocytes % 29.6 03/31/18 06:20 Monocytes % 9.3 03/31/18 06:20 Eosinophils % 2.3 03/31/18 06:20 Basophils % 0.4 03/31/18 06:20 Absolute Neutrophils 1.49 k/cumm (1.2-6.7) 03/31/18 06:20 Band Neutrophils 4.0 % 03/24/18 04:55 Absolute Lymphocytes 0.76 k/cumm (1.2-3.4) L 03/31/18 06:20 Absolute Monocytes 0.24 k/cumm (0.11-0.7) 03/31/18 06:20 Absolute Eosinophils 0.06 k/cumm (0.0-0.7) 03/31/18 06:20 Absolute Basophils 0.01 k/cumm (0.0-0.2) 03/31/18 06:20 Metamyelocytes 1.0 % 03/23/18 07:07 Nucleated RBCs 1 /100WBC 03/21/18 14:27 Differential Comment Rbc morph reviewed 03/25/18 07:00 RBC Morphology See below 03/24/18 04:55 Polychromasia Present 03/24/18 04:55 Hypochromasia 2+ 03/25/18 07:00 Poikilocytosis 1+ 03/24/18 04:55 Basophilic Stippling 1+ 03/25/18 07:00 Anisocytosis 3+ 03/25/18 07:00 Microcytosis 3+ 03/25/18 07:00 Ovalocytes 2+ 03/25/18 07:00 ESR 60 MM/HR (0-30) H 03/21/18 14:27 Haptoglobin 150 mg/dL (32-197) 03/25/18 07:00 PT 11.0 sec (9.3-11.0) 03/25/18 12:45 INR 1.1 (0.9-1.1) 03/25/18 12:45 APTT 25.0 sec (21.0-31.4) 03/25/18 12:45 D-Dimer 3176 ng/mlFEU (<500) H 03/24/18 06:00 Heparin Anti-Xa Level 0.16 IU/mL 03/23/18 10:55 Sample Site Right radial 03/24/18 10:57 pCO2 30 mmHg (34-47) L 03/24/18 10:57 pO2 93 mmHg (83-108) 03/24/18 10:57 O2 Saturation 99 % (94-98) H 03/24/18 10:57 ABG pH 7.45 (7.35-7.45) 03/24/18 10:57 ABG HCO3 21 mmol/L (22-28) L 03/24/18 10:57 ABG Total CO2 20 mmol/L (22-29) L 03/24/18 10:57 ABG Base Excess -3.4 mmol/L (-3-3) L 03/24/18 10:57 Oxygen Liter Flow 2 L 03/24/18 10:57 Sodium 142 mmol/L (136-145) 03/31/18 06:20 Potassium 3.5 mmol/L (3.5-5.1) 03/31/18 06:20 Chloride 104 mmol/L (98-107) 03/31/18 06:20 Carbon Dioxide 33.1 mmol/L (21.0-32.0) H 03/31/18 06:20 Anion Gap 4.9 mmol/L (3-11) 03/31/18 06:20 BUN 6 mg/dL (7-18) L 03/31/18 06:20 Creatinine 0.63 mg/dL (0.55-1.02) 03/31/18 06:20 Estimated GFR/1.73 m2 >= 60.00 (mL/min/1.73m2) 03/31/18 06:20 Glucose 165 mg/dL (70-100) H 03/31/18 06:20 Lactate 1.4 mmol/L (0.6-1.4) 03/23/18 07:07 Calcium 8.5 mg/dL (8.5-10.1) 03/31/18 06:20 Magnesium 2.2 mg/dL (1.8-2.4) 03/31/18 06:20 Iron 29 ug/dL (50-175) L 03/22/18 16:10 TIBC 323 ug/dL (250-450) 03/22/18 16:10 Transferrin Cancelled 03/22/18 08:25 Transferrin % Sat 9 % (15-50) L 03/22/18 16:10 Ferritin 34 ng/mL (8-388) 03/22/18 06:58 Total Bilirubin 1.1 mg/dL (0.2-1.0) H 03/27/18 06:45 Conjugated Bilirubin 0.58 mg/dL (0.00-0.20) H 03/27/18 06:45 AST 38 U/L (15-37) H 03/27/18 06:45 ALT 30 U/L (12-78) 03/27/18 06:45 Alkaline Phosphatase 128 U/L (46-116) H 03/27/18 06:45 Creatine Kinase 64 U/L (26-192) 03/23/18 07:07 C-Reactive Protein 3.35 mg/dL (0.0-0.3) H 03/21/18 14:27 Total Protein 5.9 g/dL (6.4-8.2) L 03/27/18 06:45 Albumin 2.4 g/dL (3.4-5.0) L 03/27/18 06:45 Lipase 341 U/L (73-393) 03/25/18 07:00 Urine Color Yellow (Yellow) 03/24/18 09:50 Urine Clarity Clear 03/24/18 09:50 Urine pH 5.5 (5-8) 03/24/18 09:50 Ur Specific Goldsmith 1.015 (1.005-1.025) 03/24/18 09:50 Urine Protein Negative mg/dL (Negative) 03/24/18 09:50 Urine Ketones 15 mg/dL (Negative) H 03/24/18 09:50 Urine Blood Negative (Negative) 03/24/18 09:50 Urine Nitrite Negative (Negative) 03/24/18 09:50 Urine Bilirubin Negative (Negative) 03/24/18 09:50 Urine Urobilinogen 0.2 EU/dL (Up TO 0.2) 03/24/18 09:50 Ur Leukocyte Esterase Negative (Negative) 03/24/18 09:50 Urine RBC Not Applicable 03/21/18 15:25 Urine WBC HPF (0-5) 03/21/18 15:25 Ur Epithelial Cells Not Applicable 03/21/18 15:25 Urine Crystals Not Applicable 03/21/18 15:25 Urine Bacteria Packed HPF (Negative) 03/21/18 15:25 Urine Mucus Not Applicable 03/21/18 15:25 Ur Culture Indicated? Yes 03/21/18 15:25 Urine Glucose Negative mg/dL (Negative) 03/24/18 09:50 Vancomycin Trough 27.4 ug/mL (10.0-20.0) H* 03/29/18 06:35 A.phagocytophil DNA PCR Negative (Negative) 03/24/18 12:31 B. divergens/MO-1 PCR Negative (Negative) 03/24/18 12:31 Babesia duncani (PCR) Negative (Negative) 03/24/18 12:31 Babesia microti DNA PCR Negative (Negative) 03/24/18 12:31 Borrelia (PCR) Negative (Negative) 03/24/18 12:31 Lyme Disease Antibody Negative 03/24/18 12:31 CMV IgG Ab Negative 03/26/18 07:00 CMV IgM Ab Negative (Negative) 03/26/18 07:00 E.chaffeensis DNA (PCR) Negative (Negative) 03/24/18 12:31 E.ewingii/canis DNA PCR Negative (Negative) 03/24/18 12:31 E. muris-like DNA (PCR) Negative (Negative) 03/24/18 12:31 EBV DNA, Quant Undetected IU/mL (Undetected) 03/26/18 07:00 Hep Bs Antigen Negative (NEGAT) 03/25/18 07:00 Hep Bs Antibody Negative 03/25/18 07:00 Hep Bs Antibody, Quant 3.5 mIU/mL 03/25/18 07:00 Hep B Core Total Ab Negative (NEGAT) 03/25/18 07:00 Hepatitis C Antibody Negative (NEGAT) 03/25/18 07:00 Monoscreen Negative (Negative) 03/24/18 04:55 Parvovirus Source Plasma 03/24/18 10:53 Parvovirus B19 IgG Ab Positive (Negative) A 03/24/18 10:53 Parvovirus B19 IgM Ab Negative (Negative) 03/24/18 10:53 Parvov B19 DNA Rpd PCR Negative 03/24/18 10:53 Parvovirus Interpret See below 03/24/18 10:53 Path Cons Comment 03/21/18 14:27 Patient ABO/Rh A Positive 03/25/18 11:47 Antibody Screen Negative 03/25/18 11:47 Crossmatch See Detail 03/25/18 11:47 Reaction Clerical Check No clerical errors 03/25/18 16:25 Clerical Work Check Cancelled 03/24/18 09:44 Pre-Trans Blood Type A Positive 03/25/18 16:25 Pre-Trans Bld Appearanc No hemolysis/icterus 03/25/18 16:25 Pre-Trans VINNY Not Applicable 03/25/18 16:25 Post-Trans Blood Type A Positive 03/25/18 16:25 Post-Trans Spec Appear No hemolysis/icterus 03/25/18 16:25 Post-Trans VINNY Negative 03/25/18 16:25 Reaction Pathol Review Negative-complete 03/25/18 16:25
[2018-03-31 19:22] VITALS: BP 142/67; PULSE 70; RESP 18; TEMP 36.6; O2SAT 97
[2018-03-31] MEDS: Pravastatin 20 MG TAB 10 MG PO (21:36)
[2018-04-01] MEDS: ACETAMINOPHEN 1,000 MG/100 ML BTL 400 MG IVPB ×2 (01:47→09:21)
[2018-04-01 01:49] VITALS: BP 134/61; PULSE 66; RESP 16; O2SAT 97
[2018-04-01 02:09] VITALS: TEMP 36
[2018-04-01 04:02] VITALS: BP 158/72; PULSE 65; RESP 18; TEMP 36.9; O2SAT 96
[2018-04-01 07:14] LABS: Absolute Basophil Count 0.01 k/cumm (0.0-0.2); Absolute Eosinophil Count 0.04 k/cumm (0.0-0.7); Absolute Lymphocyte Count 0.88 k/cumm (1.2-3.4); Absolute Monocyte Count 0.29 k/cumm (0.11-0.7); Absolute Neutrophil Count 1.73 k/cumm (1.2-6.7); Basophils % 0.3; Eosinophils % 1.4; HCT 28.6 % (36.0-46.0); HGB 8.3 g/dL (12.0-15.5); Lymphocytes % 29.8; Mean Corpuscular Volume 79.2 fL (80-95); Mean Platelet Volume 9.7 fL (8.0-11.0); Monocytes % 9.8; Neutrophils % 58.7; Platelet Count 246 x1000/uL (130-400); RBC 3.61 m/cumm (4.00-5.20); RBC Distribution Width 23.2 % (11.7-14.6); White Blood Cell Count 2.95 k/cumm (4.4-10.8)
[2018-04-01 07:21] LABS: Anion Gap 5.4 mmol/L (3-11); BUN 7 mg/dL (7-18); CO2 32.6 mmol/L (21.0-32.0); CREATININE 0.77 mg/dL (0.55-1.02); Calcium 8.8 mg/dL (8.5-10.1); Chloride 103 mmol/L (98-107); Glucose 184 mg/dL (70-100); Magnesium 2.2 mg/dL (1.8-2.4); Potassium 3.9 mmol/L (3.5-5.1); Sodium 141 mmol/L (136-145)
[2018-04-01] MEDS: Sucralfate 1 GM TAB PO ×2 (09:22→12:03)
[2018-04-01] MEDS: Pantoprazole 40 MG VIAL IVP (09:22)
[2018-04-01] MEDS: Insulin Aspart 300 UNITS/3 ML PEN SC ×2 (09:22→12:04)
[2018-04-01] MEDS: Magnesium Chloride 64 MG TABCR PO (09:22)
[2018-04-01] MEDS: Ferrous Sulfate 325 MG TAB PO (09:22)
[2018-04-01] MEDS: Ascorbic Acid 500 MG TAB PO (09:23)
[2018-04-01] MEDS: Spironolactone 25 MG TAB 50 MG PO (09:23)
[2018-04-01] MEDS: Furosemide 20 MG TAB 40 MG PO (09:23)
[2018-04-01] MEDS: Nadolol 40 MG TAB 10 MG PO (09:23)
[2018-04-01 09:26] VITALS: BP 162/69; PULSE 70; RESP 18; TEMP 37.2; O2SAT 97
[2018-04-01] MEDS: Normal Saline Flush 10 ML SYR IVP (09:37)
[2018-04-01] MEDS: Potassium Chloride 10 MEQ TABCR PO (10:17)
--- NOTE | 2018-04-01 11:26 | PDOC.CMDIS ---
LACE Index Scoring Tool - Questions: Length of Stay (in days): 7 - 13 Acuity (Admit via E.D.?): Yes Comorbidities: Diabetes w/o Complication, Chronic Pulmonary Disease E.D. Visits: 1 - Answers: Total Score: 12 Risk of Readmission: High Risk Care Management Discharge Reason for Hospitalization: Pyelonephritis Discharge Plan: Alayna will discharge home when ready per MD. She will have close follow up wtih GI at [facility] [place] with supported coordination by this junior technical writer. She will transport via private vehicle with her , [place]. CM reviewed discharge plan with Alayna who was agreeable and reported feeling confident about returning home. She was directed to call this junior technical writer by 1200 on 04/02/18 if she has not been notified of follow up appointment by this time. Patient/Family Education Needs: Review of discharge instructions and considerations. Discuss Ask Me Three.
--- NOTE | 2018-04-01 11:59 | DSE_ITS ---
Date of service: 04/01/18 Time of Service: 11:56 DS: Diagnosis Discharge Diagnosis (1) Sepsis: Status: Acute (2) Anemia: Status: Acute (3) DERRELL (acute kidney injury): Status: Resolved (4) Cirrhosis: Status: Chronic (5) Ascites: Status: Acute (6) Pancytopenia: Status: Resolved (7) Splenomegaly: Status: Chronic Discharge Plan Disposition Patient Disposition: HOME Condition: Stable Discharge Details Reason For Visit: UTI Admit Date/Time: 03/21/18 17:53 Admit Provider: Turner Murphy Attending Provider: Turner Murphy Primary Care Provider: Mara Pantoja Hospital Course Hospital Course: CC: HPI: 67 year old woman with a history of SILVESTRE, admitted from [facility] Emergency Department on 03/21 with a diagnosis of anemia and GI Bleed, along with significant leukopenia and enventual development of pancytopenia. Mrs. Nix has a history of PSVTs, DM, COPD, and HTN. She was admitted with evidence of a heme + iron deficient anemia, and potential evidence of a UTI. Her original Urine Culture grew a mixed gram negative amari thought possible contaminant, with repeat urinalysis negative (although on broad spectrum antibiotics). Due to development of pancytopenia further work-up was taken that included negative CXR and CT of the chest (b/l atelectasis with pneumonia not ruled out), CT of the abdomen, and serology for EBV, CMV, and Hepatitis. Her Parvovirus was positive to IgG only, with a negative IgM. Her tick panel was also checked and negative. Her platelet count is now normalized, with WBC that remains low but stable. Additionally she had evidence of Cirrhosis by imaging, with small ascites, which is a new diagnosis for her. Due to the presence of gallstones a HIDA scan was obtained and also negative. She also has evidence of Diastolic Dysfunction and Moderate MR by ECHO. This morning she is unchanged in symptoms and feels well overall, with no overnight events reported. Remains afebrile. Hospital Course: (1) Sepsis: Evidence of tachycardia, hypotension, fever, elevated Lactate, and low WBC, initially attributed to urinary source. Development of worsening WBC and development of pancytopenia with bandemia. Bacterial process never confirmed, with no definitive proof of UTI or pyelonephritis. CT showed atelectasis vs. pneumonia, but without pulmonary sym ptoms. HIDA scan negative in setting of gallstones. There is no evidence of acute hepatitis, EBV/CMV/tick-borne illness. Parvovirus serologies are not convincing (only IgG is positive). Blood Cultures negative. Underwent course of antibiotic therapy with Vancomycin and Meropenem, albeit with viral process not ruled out. Patient did report fevers prior to her presentation to the hospital, now resolved - has now been afebrile >72 hours. (2) Anemia: Heme positive with evidence of iron deficiency, likely due to slow GI bleeding, s/p transfusion. Hemoccult remains positive despite BID IV PPI and QID Carafate. No evidence of variceal disease by imaging, but cannot definitively rule this out and as such EGD would be better suited to be undertaken via GI at [facility]. Discussed case with GI at [facility] who agress on short course endoscopy as outpatient and will help facilitate. Continue Iron and vitamin C. Monitor am Hgb. Plan on discharge with oral PPI therapy and Carafate until definitive diagnosis is made by EGD. (3) DERRELL (acute kidney injury): In setting of acute illness and profound anemia - likely prerenal. Resolved. (4) Cirrhosis: New diagnosis in patient with history of SILVESTRE/Fatty liver disease. Will Need GI follow-up long-term. Currently on Spironolactone due to concurrent small ascites. INR normal. 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 Plan will be for GI / Hepatology follow-up soon after discharge. (5) Ascites: Amount not sufficient to attempt paracentesis. Ascites in setting of new diagnosis of Cirrhosis. Continue Spironolactone. (6) Pancytopenia: Anemia is due to ongoing blood loss - stable. Thrombocytopenia has resolved. Unsure of etiology for low WBC but has improved and appears stable. Needs follow-up repeat CBC with potential hematology follow-up if not resolving. (7) Supraventricular tachycardia, paroxysmal: Discontinude low dose Metoprolol in favor of Nadolol, as above. HR appropriate at time of discharge. (8) Gallstone Discover of calcified gallstone in the neck of the gallbladder by CT imaging. HIDA scan negative. This needs to be monitored over time, with potential intervention if needed in the future. (9) DVT prophylaxis: Mechanical DVT prophylaxis was used given current GI Blood Loss. (10) Disposition Patient will work closely with Case Management first thing monday morning (tomorrow) to schedule her follow-up with GI for a hepatology follow-up as well as to schedule an outpatient EGD, which preferrably should be done within one week. A repeat CBC will be ordered to ensure stability in Hgb within 3 days of discharge, as well a repeat renal panel to ensure stability in kidney function on diuretic therapy. Follow-up with PCP within one week of discharge. Home Meds and New Rx's Prescriptions: New ascorbic acid (vitamin C) [Vitamin C] 500 mg Tablet 500 mg PO BID Qty: 60 RF: 0 ferrous sulfate 325 mg (65 mg iron) Tablet 325 mg PO BID Qty: 60 RF: 0 furosemide 20 mg Tablet 40 mg PO BID@0830,1600 Qty: 60 RF: 0 nadolol [Corgard] 40 mg Tablet 10 mg PO DAILY Qty: 30 RF: 0 acidophilus-pectin, citrus 25 million cell -100 mg Tablet 1 cap PO BID Qty: 60 RF: 0 spironolactone 25 mg Tablet 50 mg PO DAILY Qty: 30 RF: 0 sucralfate 1 gram Tablet 1 g PO AC & HS Qty: 120 RF: 0 pantoprazole [Protonix] 40 mg tablet,delayed release (DR/EC) 40 mg PO BID Qty: 60 RF: 0 Continued lorazepam 0.5 mg tablet 0.5 mg SL TID PRN (Reason: anxiety) Qty: 10 RF: 0 lancets [OneTouch UltraSoft Lancets] 1 EACH misc 1 ea Miscellaneous DAILY RF: 0 clotrimazole-betamethasone 15 GM cream 1 marky Topical PRN Qty: 1 RF: 0 clobetasol 60 GM ointment 1 marky Topical HS Qty: 1 RF: 1 triamcinolone acetonide 15 GM cream 15 gm Topical DAILY RF: 0 ONETOUCH ULTRA TEST STRIPS 1 EACH strip 1 ea Miscellaneous TID Qty: 300 RF: 3 metformin 500 MG tablet 2 tab PO BID Qty: 360 RF: 3 pravastatin 10 MG tablet 10 mg PO DAILY Qty: 90 RF: 3 glimepiride 4 MG tablet 4 mg PO DAILY Qty: 90 RF: 3 pen needle, diabetic [Pen Needle] 31 gauge x 5/16 needle 4 ea Miscellaneous DAILY Qty: 300 RF: 4 Lantus Solostar U-100 Insulin 100 unit/mL (3 mL) insulin pen 30 unit subcut HS Qty: 9 RF: 3 Victoza 3-Melquiades 0.6 mg/0.1 mL (18 mg/3 mL) pen injector 1.6 mg subcut DAILY RF: 0 Discontinued Prilosec OTC 20 MG tablet,delayed release (DR/EC) 20 mg PO DAILY Qty: 90 RF: 3 aspirin [Aspirin Low-Strength] 81 MG tablet,chewable 81 mg PO DAILY RF: 0 hydrochlorothiazide 12.5 MG tablet 12.5 mg PO DAILY Qty: 90 RF: 3 metoprolol tartrate 25 MG tablet 25 mg PO BID Qty: 200 RF: 3 losartan 100 MG tablet 100 mg PO DAILY Qty: 90 RF: 3 Discharge Instructions Instructions: Cirrhosis (DC), Cirrhosis (GEN), Ascites (DC), Ascites (GEN) Additional Instructions: Please call our case reviewer Carmelita tomorrow morning to schedule your follow-up with Gastroenterology at [facility] - you will need an endoscopy as well as a follow-up with a liver specialist. Please see your primary care doctor within 1 week of discharge. Activity:: No Strenuous Activity Equipment/Supplies:: No Equipment Needed Diet:: Follow a liver diet Discharge Orders Discharge Orders: Discharge Order (Routine); Ordered 04/01/18 Ordered By: Turner Murphy Other Ambulatory Orders: Basic Metabolic Panel (Routine) Timeframe: 3 Days Location: Determined by Patient Ordered By: Turner Murphy Complete Blood Count w/Diff (Routine) Location: Determined by Patient Ordered By: Turner Murphy Exam Narrative Exam Narrative: Exam Narrative: General: Patient appears comfortable, pale appearing, AAOX3, NAD Neck: Supple CV: Regular, nontachycardic, S1S2, No rubs, murmurs, or gallops. Pulmonary: Clear to auscultation bilaterally, no crackles, wheezing, or rhonchi Abdomen: + Bowel Sounds, soft, nondistended. Previous mild epigastric/RUQ/LUQ tenderness on palpation appears improved. Vascular: No lower extremity edema Psych: Normal mood and affect. DS: Data Vitals/I&O Vitals and I&O: Vital Signs Temperature 37.2 C 04/01/18 09:26 Temperature Source Tympanic 04/01/18 09:26 Pulse 70 04/01/18 09:26 Pulse Rhythm Regular 04/01/18 10:42 Respiratory Rate 18 04/01/18 09:26 Respiratory Effort 04/01/18 10:42 Respiratory Depth Normal 04/01/18 10:42 Respiratory Pattern Normal 04/01/18 10:42 Blood Pressure 162/69 H 04/01/18 09:26 Pulse Oximetry 97 04/01/18 09:26 Oxygen Delivery Method Room Air 04/01/18 09:26 Oxygen Flow Rate 0 04/01/18 09:26 Pain Level 0 04/01/18 09:26 Comment 03/30/18 03:10 Intake & Output 03/31/18 03/31/18 04/01/18 11:59 23:59 11:59 Intake Total 600 / 1060 460 / 1060 500 / 500 Balance 600 / 1060 460 / 1060 500 / 500 Weight 68.2 kg 67.4 kg Intake: IV 200 / 300 100 / 300 100 / 100 Oral 400 / 760 360 / 760 400 / 400 Other: Urine Appearance Clear Clear Clear Comment Ind to toilet, UOP x 1 noted. Completed studies during hospitalization [Text1]: Exam(s) 03/21/2018 a RAD:XR chest 2V PA & lateral SYMPTOMS/DIAGNOSIS: FEVER PA AND LATERAL CHEST: Comparison is made with May,. The heart size is normal. The lungs are well inflated and clear. No infiltrate or effusion is seen. IMPRESSION: Negative chest x-ray. Exam(s) 03/21/2018 a US:US renal SYMPTOM/DIAGNOSIS: PYURIA, ? HYDRONEPHROSIS RENAL ULTRASOUND: Routine examination was performed. The right kidney measures 11.4 cm. long. The left kidney measures 11 cm. long. No renal masses, calculi or obstruction is identified. There is normal and symmetric blood flow to the kidneys. The urinary bladder was non distended and could not be adequately evaluated sonographically. Incidental note is made of enlarged spleen measuring 17 cm. The liver is enlarged measuring 22 cm. There does appear to be increased echogenicity of the liver diffusely suggesting hepatic steatosis. IMPRESSION: 1. No evidence of hydronephrosis. 2. Hepatosplenomegaly with findings suggestive of hepat ic steatosis. Exam(s) a RAD:XR portable chest AP SYMPTOM/DIAGNOSIS: SOB PORTABLE AP CHEST: Comparison is made with 03/21/08. The heart is normal in size. The lungs are clear. The mediastinal structures and pleura appear intact. CONCLUSION: Normal chest. EXAM: 03/24/2018 XR Chest, 1 View EXAM DATE/TIME: 03/24/2018 4:56 AM CLINICAL HISTORY: 67 years old, female; Signs and symptoms; Shortness of breath; Patient HX: SOB, HX of copd TECHNIQUE: XR of the chest, 1 view. COMPARISON: CR XR CHEST 2V PA LATERAL 03/21/2018 2:57 PM FINDINGS: Lungs: Mild hyperinflation. No consolidation. Pleural space: Unremarkable. No pleural effusion. No pneumothorax. Heart/Mediastinum: Atherosclerotic disease. Bones/joints: Unremarkable. IMPRESSION: No acute findings. Exam(s) 03/29/2018 EXAM: CT Angiography Chest With Contrast EXAM DATE/TIME: 03/24/2018 10:36 AM CLINICAL HISTORY: 67 years old, female; Signs and symptoms; Shortness of breath; Patient HX: Respiratory distress, fuo, pleuritic/abd pain. ; Additional info: Best images obtained due to patient SOB, unable to hold breath for duration of breath hold for scan, repeat done to improve images. TECHNIQUE: Axial computed tomographic angiography images of the chest with intravenous contrast using CT angiography protocol. All CT scans at this facility use at least one of these dose optimization techniques: automated exposure control; mA and/or kV adjustment per patient size (includes targeted exams where dose is matched to clinical indication); or iterative reconstruction. Coronal and sagittal reformatted images were created and reviewed. MIP reconstructed images were created and reviewed. CONTRAST: 100 ml of omnipaque 350 administered intravenously. COMPARISON: CR XR PORTABLE CHEST AP 03/24/2018 4:53 AM FINDINGS: Pulmonary arteries: Normal. No pulmonary emboli. Aorta: Normal. No aortic aneurysm. No aortic dissection. Lungs: Normal. No consolidation. No masses. Pleural space: Mild bilateral pleural fluid collections. Heart: Normal. No cardiomegaly. No pericardial effusion. Lymph nodes: Unremarkable. No enlarged lymph nodes. Bones/joints: Moderate thoracic spondylosis. Soft tissues: Unremarkable. Other findings: Examination is limited secondary to motion artifact. IMPRESSION: Mild bilateral pleural fluid collections. EXAM: CT Angiography Abdomen With Contrast EXAM DATE/TIME: 03/24/2018 10:36 AM CLINICAL HISTORY: 67 years old, female; Signs and symptoms; Shortness of breath; Patient HX: Respiratory distress, fuo, pleuritic/abd pain. ; Additional info: Best images obtained due to patient SOB, unable to hold breath for duration of breath hold for scan, repeat done to improve images. TECHNIQUE: Axial computed tomographic angiography images of the abdomen with intravenous contrast material, including non-contrast images if performed. MIP and/or 3D reconstructed images were created and reviewed. All CT scans at this facility use at least one of these dose optimization techniques: automated exposure control; mA and/or kV adjustment per patient size (includes targeted exams where dose is matched to clinical indication); or iterative reconstruction. Coronal and sagittal reformatted images were created and reviewed. MIP reconstructed images were created and reviewed. COMPARISON: CR XR PORTABLE CHEST AP 03/24/2018 4:53 AM FINDINGS: Lungs: Unremarkable. No consolidation. VASCULATURE: Aorta: Calcification of the abdominal aorta and/or iliac arteries consistent with atherosclerotic vessel disease. Celiac trunk and mesenteric arteries: No occlusion or significant stenosis. Renal arteries: No occlusion or significant stenosis. Portal Venous System: 19 mm portal vein suggesting portal hypertension. ABDOMEN: Liver: Nodular liver suggesting possible cirrhosis. Gallbladder and bile ducts: Calcified gallstone in the neck of the gallbladder. Pericholecystic fluid in the region of the gallbladder consistent with right heart failure versus hepatitis versus cholecystitis. Pancreas: Normal. No ductal dilation. Spleen: Large 18.7 x 16.0 cm splenomegaly. Adrenals: Normal. No mass. Kidneys and ureters: Normal. No hydronephrosis. Stomach and bowel: Mild bowel wall thickening in the antrum is in duodenum with edema or inflammation surrounding the second portion of duodenum consistent with gastroenteritis versus portal enteropathy. Intraperitoneal space: One or more calcified pelvic phleboliths. Mild to moderate four-quadrant ascites. Bones/joints: Unremarkable. No acute fracture. No dislocation. Soft tissues: Unremarkable. Lymph nodes: Unremarkable. No enlarged lymph nodes. IMPRESSION: 1. Mild to moderate four-quadrant ascites. 2. Large 18.7 x 16.0 cm splenomegaly. 3. Nodular liver suggesting possible cirrhosis. 4. 19 mm portal vein suggesting portal hypertension. 5. Calcified gallstone in the neck of the gallbladder. 6. Pericholecystic fluid in the region of the gallbladder consistent with right heart failure versus hepatitis versus cholecystitis. 7. Mild bowel wall thickening in the antrum is in duodenum with edema or inflammation surrounding the second portion of duodenum consistent with gastroenteritis versus portal enteropathy. Exam(s) 03/24/2018 a US:US abdomen SYMPTOM/DIAGNOSIS: ? ACUTE CHOLECYSTITIS, F/U ABNL CT, NODULAR LIVER, CHOLELITHIASIS, ENLARGED SPLEEN, PERICHOLECYSTIC FLUID ABDOMEN ULTRASOUND: Routine examination. Comparison CT scan is from the same day. The IVC and aorta are unremarkable. The liver is enlarged with a nodular contour. There is diffuse increased echogenicity of the liver consistent with steatosis. The liver has a nodular appearance suggestive hepatic cirrhosis. No hepatic mass is seen. There is a 4 mm. stone in the gallbladder neck. There are a few echogenic nodules seen along the wall of the gallbladder consistent with gallbladder polyps. No sludge is seen. The gallbladder wall is thickened at .5 cm. There is a negative sonographic Spann's sign. Small amount of pericholecystic fluid is seen. The common duct is within normal limits at .5 cm. The tail of the pancreas could not be visualized but the remainder of the pancreas is unremarkable. The kidneys are unremarkable. The liver is enlarged measuring 17 cm. The portal vein measures 2.1 cm. There is ascites seen in the upper abdomen. IMPRESSION: Findings suggestive of hepatic cirrhosis with portal hypertension, splenomegaly and abdominal ascites. Cholelithiasis. Gallbladder wall thickening, this may be due to cholecystitis, hepatitis or possible right heart failure. Borderline 5 mm. pericardial effusion. Exam(s) a US:US echocardiogram Date of study: 03/26/2018 Transthoracic Echocardiography M-mode, complete 2D, complete spectral Doppler, and color Doppler *STUDY CONCLUSIONS* Summary: 1. Left ventricle: The cavity size was normal. Wall thickness was increased in a pattern of mild LVH. Systolic function was hyperdynamic. The estimated ejection fraction was 65-70%. Findings consistent with diastolic dysfunction. Doppler parameters are consistent with high ventricular filling pressure. 2. Aortic valve: There was trivial regurgitation. 3. Mitral valve: There was mild to moderate regurgitation. 4. Left atrium: The atrium was mildly dilated. 5. Right ventricle: The cavity size was normal. Wall thickness was normal. Systolic function was normal. 6. Atrial septum: No defect or patent foramen ovale was identified. 7. Pulmonary arteries: Pulmonary systolic pressure was in the range of 30mm Hg to 40mm Hg. 8. Inferior vena cava: The vessel was patent and normal in size. The respirophasic diameter changes were in the normal range (greater than or equal to 50%), consistent with normal central venous pressure. Exam(s) 03/26/2018 a NM:NM hepatobiliary scan grp SYMPTOMS/DIAGNOSIS: CHOLELITHIASIS, STONE AT GALLBLADDER NECK HEPATOBILIARY SCAN: The patient received 5.1 mCi of technetium 99m mebrofenin and examination was performed according to protocol. The liver, bile ducts, gallbladder and small bowel were visualized at the appropriate time intervals. IMPRESSION: Normal hepatobiliary scan. Labs on day of discharge: Labs from last 24 hours 04/01/18 04/01/18 06:32 06:32 WBC 2.95 L RBC 3.61 L Hgb 8.3 L Hct 28.6 L MCV 79.2 L MCH 23.0 L MCHC 29.0 L RDW 23.2 H Plt Count 246 MPV 9.7 Immature Gran % 0.0 Neutrophils % 58.7 Lymphocytes % 29.8 Monocytes % 9.8 Eosinophils % 1.4 Basophils % 0.3 Absolute Neutrophils 1.73 Absolute Lymphocytes 0.88 L Absolute Monocytes 0.29 Absolute Eosinophils 0.04 Absolute Basophils 0.01 Sodium 141 Potassium 3.9 Chloride 103 Carbon Dioxide 32.6 H Anion Gap 5.4 BUN 7 Creatinine 0.77 Estimated GFR/1.73 m2 >= 60.00 Glucose 184 H Calcium 8.8 Magnesium 2.2 PFSH Medical History Tubular adenoma (Resolved 10/06/15) Other and unspecified hyperlipidemia (Chronic 06/07/12) Non-alcoholic fatty liver disease (Chronic 04/12/11) Lichen sclerosus et atrophicus (Chronic 07/26/11) 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) Gastroesophageal reflux disease (Chronic 04/12/11) Essential hypertension (Chronic 02/05/13) Diabetes mellitus type 2, controlled, without complications (Chronic 06/07/12) COPD (chronic obstructive pulmonary disease) (Chronic 10/29/14) Diabetes mellitus, type 2 GERD (gastroesophageal reflux disease) Hiatal hernia Hypertension Lichen sclerosus et atrophicus Premature menopause Surgical History Appendectomy Biopsy of breast Colonoscopy (10/06/15) Endoscopy Family History Father Diabetes Sister Diabetes Breast cancer Other Heart disease Personal history of malignant neoplasm Social History household members: spouse housing: house lives independently: Yes number of children: 3 number of grandchildren: 2 current occupational status: retired well-balanced diet: daily or most days Smoking/Tobacco Use Status: Former Tobacco Use substance use type: does not use seatbelt use: always drive intox or ride w/ intox medical van driver: No working smoke detector in home: Yes fire extinguisher in home: Yes carbon monox detector in home: Yes
[2018-04-01] MEDS: Bacitracin 1 PACKET (13:03)
--- NOTE | 2018-04-01 13:28 | CMDISCH_ITS ---
LACE Index Scoring Tool - Questions: Length of Stay (in days): 7 - 13 Acuity (Admit via E.D.?): Yes Comorbidities: Diabetes w/o Complication, Chronic Pulmonary Disease E.D. Visits: 1 - Answers: Total Score: 12 Risk of Readmission: High Risk Care Management Discharge Reason for Hospitalization: Pyelonephritis Discharge Plan: Alayna will discharge home when ready per MD. She will have close follow up wtih GI at [facility] with supported coordination by this life insurance underwriter. She will transport via private vehicle with her , [place]. CM reviewed discharge plan with Alayna who was agreeable and reported feeling confident about returning home. She was directed to call this life insurance underwriter by 1200 on 04/02/18 if she has not been notified of follow up appointment by this time. Patient/Family Education Needs: Review of discharge instructions and considerations. Discuss Ask Me Three.
== END 2018-04-01 14:03 | disposition home or self-care (01) | DRG 872 ==
LOC: ER 16:47 → MS 18:12
PROVIDERS: General Practice; Internal Medicine; Nurse Practitioner Family; Surgery; Admitting Provider Internal Medicine; Emergency Provider Physician Assistant; PCP Internal Medicine; Visit Provider Internal Medicine
DX: A41.9 Sepsis, unspecified organism (principal); K92.2 Gastrointestinal hemorrhage, unspecified; N17.9 Acute kidney failure, unspecified; I47.1 Supraventricular tachycardia; R18.8 Other ascites; D61.818 Other pancytopenia; K76.6 Portal hypertension; Z20.828 Contact with and (suspected) exposure to other viral communicable diseases; B34.9 Viral infection, unspecified; R06.02 Shortness of breath; K80.20 Calculus of gallbladder without cholecystitis without obstruction; K82.4 Cholesterolosis of gallbladder; D50.0 Iron deficiency anemia secondary to blood loss (chronic); E11.9 Type 2 diabetes mellitus without complications; K74.60 Unspecified cirrhosis of liver; K75.81 Nonalcoholic steatohepatitis (NASH); R16.2 Hepatomegaly with splenomegaly, not elsewhere classified; Z87.440 Personal history of urinary (tract) infections; Z79.4 Long term (current) use of insulin; Z87.891 Personal history of nicotine dependence; K21.9 Gastro-esophageal reflux disease without esophagitis; J44.9 Chronic obstructive pulmonary disease, unspecified; I51.89 Other ill-defined heart diseases; I34.0 Nonrheumatic mitral (valve) insufficiency; I51.7 Cardiomegaly; I11.9 Hypertensive heart disease without heart failure; R50.9 Fever, unspecified
CPT/HCPCS: 36410; 36415; 36430; 36569; 47563; 71275; 74177; 76770; 78227; 80048; 80053; 80076; 82550; 82805; 83690; 85652; 86704; 86706; 86803; 86850; 86900; 86901; 86920; 87040; 87340; 87449; 87798; 87799; 93005; 93306; 96360; 96361; 99223; 99232; 99233; 99239; 99285; J1650; 36600; 71045; 71046; 76700; 80202; 81003; 81015; 82247; 82248; 82728; 83010; 83540; 83550; 83605; 83735; 84132; 84460; 84466; 85014; 85018; 85025; 85379; 85520; 85610; 85730; 86140; 86308; 86618; 86644; 86645; 86747; 86880; 87086; 87324; 93010; 94640; J0131; J1941; J2405; J2543; J3475; J3490; J7613; P9016

== ENCOUNTER 2018-04-04 10:42 | Outpatient (CLI) | payer MEDICARE, BC, SELFPAY ==
[2018-04-04 11:06] LABS: Abs Immature Grans 0.01 k/cumm (0.0-0.09); Absolute Basophil Count 0.04 k/cumm (0.0-0.2); Absolute Eosinophil Count 0.06 k/cumm (0.0-0.7); Absolute Lymphocyte Count 1.02 k/cumm (1.2-3.4); Absolute Monocyte Count 0.36 k/cumm (0.11-0.7); Basophils % 0.8; Eosinophils % 1.2; HCT 35.2 % (36.0-46.0); HGB 10.5 g/dL (12.0-15.5); Immature Grans % 0.2; Lymphocytes % 19.7; Mean Corp. HGB Concentration 29.8 g/dL (32.0-36.0); Mean Corpuscular Hemoglobin 23.4 pg (27.0-33.0); Mean Corpuscular Volume 78.6 fL (80-95); Mean Platelet Volume 8.9 fL (8.0-11.0); Monocytes % 6.9; Neutrophils % 71.2; Platelet Count 345 x1000/uL (130-400); RBC 4.48 m/cumm (4.00-5.20); RBC Distribution Width 23.4 % (11.7-14.6); White Blood Cell Count 5.19 k/cumm (4.4-10.8)
[2018-04-04 12:09] LABS: Anion Gap 10.4 mmol/L (3-11); BUN 13 mg/dL (7-18); CO2 30.6 mmol/L (21.0-32.0); CREATININE 0.73 mg/dL (0.55-1.02); Calcium 9.7 mg/dL (8.5-10.1); Chloride 100 mmol/L (98-107); Glucose 68 mg/dL (70-100); Potassium 3.9 mmol/L (3.5-5.1); Sodium 141 mmol/L (136-145)
== END 2018-04-04 11:02 ==
PROVIDERS: PCP Internal Medicine; Visit Provider Internal Medicine
DX: D64.9 Anemia, unspecified (principal); I10 Essential (primary) hypertension
CPT/HCPCS: 36415; 80048; 85025

== ENCOUNTER 2018-05-15 14:41 | Outpatient (CLI) | payer MEDICARE, BC, SELFPAY ==
[2018-05-15 15:05] LABS: Reticulocyte 3.2 % (0.5-2.4)
[2018-05-15 15:57] LABS: Iron 42 ug/dL (50-175); Total Iron Binding Capacity 410 ug/dL (250-450); Transferrin Sat 10 % (15-50)
[2018-05-15 16:24] LABS: Ferritin 11 ng/mL (8-388); Vitamin B12 359 pg/mL (193-986)
[2018-05-17 19:08] LABS: Transferrin 287 mg/dL (201-352)
== END 2018-05-15 15:01 ==
PROVIDERS: PCP Internal Medicine; Visit Provider Internal Medicine
DX: D64.9 Anemia, unspecified (principal)
CPT/HCPCS: 36415; 82607; 82728; 83540; 83550; 84466; 85045

== ENCOUNTER 2018-05-17 01:29 | Outpatient (RCR) | payer MEDICARE, BC, SELFPAY ==
[2018-05-17] MEDS: Normal Saline Flush 10 ML SYR IVP (13:31)
[2018-05-17] MEDS: IRON SUCROSE COMPLEX 200 MG in Normal Saline 100 ML 110 MG IVPB (13:31)
== END 2018-05-17 23:59 | disposition home or self-care (01) ==
LOC: INF 01:29
PROVIDERS: PCP Internal Medicine; Visit Provider Internal Medicine
DX: D50.0 Iron deficiency anemia secondary to blood loss (chronic) (principal)
CPT/HCPCS: 96365; J1756

== ENCOUNTER 2018-05-25 00:34 | Outpatient (RCR) | payer MEDICARE, BC, SELFPAY ==
[2018-05-24] MEDS: IRON SUCROSE COMPLEX 200 MG in Normal Saline 100 ML 110 MG IVPB (12:02)
[2018-05-24] MEDS: Normal Saline Flush 10 ML SYR IVP (12:08)
[2018-05-25] MEDS: IRON SUCROSE COMPLEX 200 MG in Normal Saline 100 ML 110 MG IVPB (12:01)
[2018-05-25] MEDS: Normal Saline Flush 10 ML SYR IVP (12:06)
== END 2018-06-17 23:59 | disposition home or self-care (01) ==
LOC: INF 00:34
PROVIDERS: PCP Internal Medicine; Visit Provider Internal Medicine
DX: E50.0 Vitamin A deficiency with conjunctival xerosis (principal)
CPT/HCPCS: 96365; J1756

== ENCOUNTER → 2018-08-08 09:51 | Outpatient (BNVA) | payer MEDICARE, BC, SELFPAY | PROVIDERS: PCP Internal Medicine; Visit Provider Internal Medicine Cardiovascular Disease | DX: K75.81 Nonalcoholic steatohepatitis (NASH) (principal); K74.60 Unspecified cirrhosis of liver; D64.9 Anemia, unspecified; E78.5 Hyperlipidemia, unspecified; J44.9 Chronic obstructive pulmonary disease, unspecified; E11.9 Type 2 diabetes mellitus without complications; I10 Essential (primary) hypertension; Z86.79 Personal history of other diseases of the circulatory system | CPT/HCPCS: 99214 ==

== ENCOUNTER 2018-08-29 01:09 | Outpatient (RCR) | payer MEDICARE, BC, SELFPAY ==
[2018-08-23] MEDS: IRON SUCROSE COMPLEX 100 MG in Normal Saline 100 ML 420 MG IVPB (12:23)
[2018-08-23] MEDS: Normal Saline Flush 10 ML SYR IVP (12:23)
[2018-08-29] MEDS: Normal Saline Flush 10 ML SYR IVP (12:19)
[2018-08-29] MEDS: IRON SUCROSE COMPLEX 100 MG in Normal Saline 100 ML 420 MG IVPB (12:19)
== END 2018-09-16 23:59 | disposition home or self-care (01) ==
LOC: INF 01:09
PROVIDERS: PCP Internal Medicine; Visit Provider Internal Medicine
DX: D50.9 Iron deficiency anemia, unspecified (principal)
CPT/HCPCS: 96365; J1756

== ENCOUNTER 2018-09-12 09:47 | Outpatient (CLI) | payer MEDICARE, BC, SELFPAY ==
[2018-09-12 10:34] LABS: HCT 35.7 % (36.0-46.0); HGB 11.7 g/dL (12.0-15.5)
[2018-09-12 13:01] LABS: Iron 56 ug/dL (50-175)
== END 2018-09-12 10:07 ==
PROVIDERS: PCP Internal Medicine; Visit Provider Internal Medicine
DX: D50.9 Iron deficiency anemia, unspecified (principal)
CPT/HCPCS: 36415; 83540; 85014; 85018

== ENCOUNTER 2018-10-11 10:02 | Outpatient (CLI) | payer MEDICARE, BC, SELFPAY ==
[2018-10-11 10:43] LABS: HCT 36.5 % (36.0-46.0); HGB 11.8 g/dL (12.0-15.5)
== END 2018-10-11 10:22 ==
PROVIDERS: PCP Internal Medicine; Visit Provider Internal Medicine
DX: D50.9 Iron deficiency anemia, unspecified (principal)
CPT/HCPCS: 36415; 85014; 85018

== ENCOUNTER 2018-11-13 13:19 | Outpatient (CLI) | payer MEDICARE, BC, SELFPAY ==
[2018-11-13 13:35] LABS: HCT 36.5 % (36.0-46.0); HGB 11.8 g/dL (12.0-15.5)
== END 2018-11-13 13:39 ==
PROVIDERS: PCP Internal Medicine; Visit Provider Internal Medicine
DX: D50.9 Iron deficiency anemia, unspecified (principal)
CPT/HCPCS: 36415; 85014; 85018

== ENCOUNTER 2018-12-02 10:26 | Emergency (ER) | payer MEDICARE, BC, SELFPAY ==
[2018-12-02] VITALS (48 sets, daily range): BP systolic 92–130; BP diastolic 46–97; PULSE 68–97; RESP 11–29; TEMP 36.6; O2SAT 94–98
--- NOTE | 2018-12-02 10:40 | ED.GENADUL_ITS ---
Discharge Plan Disposition Patient Disposition: HOME Condition: Improving Discharge Details Chief Complaint: GenMedical Clinical Impression: Nausea, Diarrhea, UTI (urinary tract infection) Primary Care Provider: Mara Pantoja ED Provider: Estefany Rodas Home Meds and New Rx's Prescriptions: New cephalexin [Keflex] 500 mg capsule 500 mg PO BID 7 Days Qty: 14 RF: 0 ondansetron HCl [Zofran] 4 mg tablet 4 mg PO Q8H PRN (Reason: nausea and vomiting) Qty: 7 RF: 0 Continued lorazepam 0.5 mg tablet 0.5 mg SL TID PRN (Reason: anxiety) Qty: 10 RF: 0 losartan 100 mg tablet 100 mg PO DAILY Qty: 90 RF: 3 pravastatin 10 mg tablet 10 mg PO DAILY Qty: 90 RF: 3 glimepiride 4 mg tablet 4 mg PO DAILY Qty: 90 RF: 3 metformin 500 mg tablet 1,000 mg PO BID Qty: 360 RF: 3 Venofer 200 mg iron/10 mL solution 200 mg IV ONCE PRN (Reason: iron deficiency anemia) Qty: 10 RF: 11 aspirin [Aspirin Low Dose] 81 mg tablet,delayed release (DR/EC) 81 mg PO DAILY RF: 0 hydrochlorothiazide 12.5 mg tablet 12.5 mg PO DAILY Qty: 90 RF: 4 metoprolol tartrate 25 mg tablet 25 mg PO BID Qty: 180 RF: 4 Lantus Solostar U-100 Insulin 100 unit/mL (3 mL) insulin pen 28 unit subcut DAILY RF: 0 (DME) lancets [OneTouch UltraSoft Lancets] 1 EACH misc 1 ea Miscellaneous DAILY RF: 0 ONETOUCH ULTRA TEST STRIPS 1 EACH strip 1 ea Miscellaneous TID Qty: 300 RF: 3 (DME) pen needle, diabetic [Pen Needle] 31 gauge x 5/16 needle 4 ea Miscellaneous DAILY Qty: 300 RF: 4 omeprazole 20 mg capsule,delayed release(DR/EC) 20 mg PO DAILY PRNRF: 0 Victoza 3-Melquiades 0.6 mg/0.1 mL (18 mg/3 mL) pen injector 1.2 mg subcut DAILY Qty: 9 RF: 3 Discharge Instructions Instructions: Urinary Tract Infection in Women (ED), Acute Nausea and Vomiting (ED), Acute Diarrhea (ED) Additional Instructions: Drink plenty of fluids and get plenty of rest. Take the Zofran as needed directed for nausea and vomiting. Take the antibiotics until finished. Call your primary care doctor tomorrow to schedule a follow-up appointment for reevaluation. Return immediately to the emergency department if you develop any worsening or new concerning symptoms. Discharge Data Discharge Date/Time-TO BE ENTERED AT DEPARTURE: 12/02/18 16:33 Discharge Physician: Estefany Rodas Medical Decision Making 1050 -- 68-year-old female with a history of COPD, diabetes, hypertension, GERD, [place] who presents with nausea, fatigue and headache for the past few days. Vitals within normal limits. Patient appears generally fatigued but without focal deficits. Lungs clear. Abdomen soft, minimally tender in epigastrium but no rigidity or guarding. Differential diagnosis includes GI illness, viral syndrome, dehydration, ACS, UTI, pneumonia, electrolyte abnormality. Will place an IV, bolus IV fluids, screening labs, chest x-ray, CT head and urinalysis and give a dose of Compazine and reassess. 1310 -- Labs and imaging reviewed. Normal white blood cell count. Troponin negative. BNP within normal limits. Chest x-ray notes a possible right upper lobe nodule but no acute disease. CT head negative. Patient states she feels a little bit better but still with nausea and headache. Will give another 500 cc bolus, dose of Toradol, Zofran and reassess. 1500 --urinalysis notes findings consistent with UTI. Does appear contaminated. Patient unable to give another sample for culture. Patient states she feels significantly better and she is requesting to go home. She does appear much more comfortable. We will treat with Keflex and Zofran. She is advised to drink plenty of fluids, follow bland diet. She is advised to follow-up with her primary care doctor for reevaluation and to return here anytime if worse. Medical Records Medical records reviewed: Yes I reviewed the patient's medical records. Imaging Data Radiologic Study: Radiologist's impression: XR Chest, 2 Views EXAM DATE/TIME: 12/02/2018 11:10 AM CLINICAL HISTORY: 68 years old, female; Other: Fatigue and nausea since Monday TECHNIQUE: Imaging protocol: XR of the chest Views: 2 views. COMPARISON: SC XR PORTABLE CHEST AP 07/18/2018 04:53 FINDINGS: Lungs: Asymmetric nodular density right upper lobe may represent a parenchymal nodule. No focal consolidation or pleural effusion. Pleural space: No pneumothorax. Heart/Mediastinum: Unremarkable. No cardiomegaly. Bones/joints: Unremarkable for patient's age. IMPRESSION: 1. No acute cardiopulmonary disease. 2. Possible right upper lobe parenchymal nodule. Consider nonemergent CT for further evaluation. CT Head Without Contrast EXAM DATE/TIME: 12/02/2018 11:48 AM CLINICAL HISTORY: 68 years old, female; Pain; Headache not specified; Patient HX: Headache since Monday TECHNIQUE: Imaging protocol: Computed tomography of the head without contrast. Radiation optimization: All CT scans at this facility use at least one of these dose optimization techniques: automated exposure control; mA and/or kV adjustment per patient size (includes targeted exams where dose is matched to clinical indication); or iterative reconstruction. COMPARISON: No relevant prior studies available. FINDINGS: Brain: Unremarkable. No intracranial hemorrhage. Unremarkable white matter. No mass effect. Ventricles: Unremarkable. No ventriculomegaly. Bones/joints: Unremarkable. No acute fracture. Sinuses: Visualized sinuses are unremarkable. No fluid levels. Mastoid air cells: Visualized mastoid air cells are well aerated. Auditory system: Debris within the left internal and external auditory canal. Soft tissues: Unremarkable. IMPRESSION: No acute intracranial abnormality. Lab Data Lab results reviewed: Yes I reviewed the patient's lab results. Labs: Laboratory Tests Range/Units 12/02/18 12/02/18 12/02/18 11:20 11:20 13:19 WBC (4.4-10.8) k/cumm 5.78 RBC (4.00-5.20) m/cumm 4.53 Hgb (12.0-15.5) g/dL 11.4 L Hct (36.0-46.0) % 34.9 L MCV (80-95) fL 77.0 L MCH (27.0-33.0) pg 25.2 L MCHC (32.0-36.0) g/dL 32.7 RDW (11.7-14.6) % 16.0 H Plt Count (130-400) x1000/uL 202 MPV (8.0-11.0) fL 9.6 Immature Gran % 0.3 Neutrophils % 71.1 Lymphocytes % 14.4 Monocytes % 13.0 Eosinophils % 0.9 Basophils % 0.3 Absolute Neutrophils (1.2-6.7) k/cumm 4.11 Absolute Lymphocytes (1.2-3.4) k/cumm 0.83 L Absolute Monocytes (0.11-0.7) k/cumm 0.75 H Absolute Eosinophils (0.0-0.7) k/cumm 0.05 Absolute Basophils (0.0-0.2) k/cumm 0.02 Sodium (136-145) mmol/L 136 Potassium (3.5-5.1) mmol/L 3.5 Chloride (98-107) mmol/L 97 L Carbon Dioxide (21.0-32.0) mmol/L 27.9 Anion Gap (3-11) mmol/L 11.1 H BUN (7-18) mg/dL 17 Creatinine (0.55-1.02) mg/dL 0.84 Estimated GFR/1.73 m2 (mL/min/1.73m2) >= 60.00 Glucose (70-100) mg/dL 149 H Calcium (8.5-10.1) mg/dL 9.1 Magnesium (1.8-2.4) mg/dL 1.7 L Total Bilirubin (0.2-1.0) mg/dL 1.1 H AST (15-37) U/L 26 ALT (14-59) U/L 38 Alkaline Phosphatase (46-116) U/L 62 Troponin I (0.00-0.06) ng/mL < 0.05 NT-Pro-B Natriuret Pep ( - 299) pg/mL 110 Total Protein (6.4-8.2) g/dL 7.5 Albumin (3.4-5.0) g/dL 3.8 Urine Color (Yellow) Yellow Urine Clarity (Clear) Clear Urine pH (5-8) 5.0 Ur Specific [place] (1.005-1.025) 1.020 Urine Protein (Negative) mg/dL Negative Urine Ketones (Negative) mg/dL Negative Urine Blood (Negative) Negative Urine Nitrite (Negative) Positive H Urine Bilirubin (Negative) Negative Urine Urobilinogen (Up TO 0.2) EU/dL 0.2 Ur Leukocyte Esterase (Negative) Trace H Urine RBC (0-2) Negative Urine WBC (0-5) HPF 5-10 Ur Epithelial Cells (Negative) HPF Moderate Urine Crystals (Negative) HPF Negative Urine Bacteria (Negative) HPF Moderate Urine Casts (Negative) LPF Negative Urine Mucus (Negative) Moderate Ur Culture Indicated? No/sq. contamination Urine Glucose (Negative) mg/dL Negative ECG Data Attestation: I personally reviewed and interpreted this ECG (s) as follows: Interpretation: Rate of 79, sinus, no acute ST elevation or depression. VT 140. QTc 454. QRS 92. HPI General Mode of arrival: ambulatory . Date/Time Provider Initiated Documentation: 12/02/18 10:27 . Limitations to Documentation: no limitations . Information obtained by: patient . HPI Narrative: Pt is a 68yo F w/ a h/o COPD, diabetes, hypertension, hyperlipidemia, GERD who presents with nausea, fatigue and headache for the past 5 days. She states she has not felt hungry and becomes nauseous when she thinks that eating. She states her headache has been alternating between right and left side and mainly feels sharp and is currently 4/10. She took Tylenol this morning without relief. She does admit to occasional dizziness but denies any at present. She admits to several episodes of diarrhea yesterday which is been watery and brown. She denies any episodes of vomiting. She does admit to low-grade fever and chills earlier this week. She states she traveled to [place] recently. She denies any chest pain, shortness of breath, abdominal pain, urinary symptoms, recent tick bite, rashes, neck pain, leg pain or swelling, recent antibiotics. Related Data Home Medications Medication Instructions Recorded Confirmed lancets [OneTouch UltraSoft ea 06/05/12 08/21/18 Lancets] Onetouch Ultra Test Strips 1 ea MISCELLANEOUS TID #300 strip 07/11/17 12/02/18 lorazepam 0.5 mg tablet 0.5 mg SL TID PRN #10 tab 02/20/18 12/02/18 pen needle, diabetic 31 gauge x #300 ndl 03/08/18 08/21/1808/02 omeprazole 20 mg capsule,delayed 20 mg PO DAILY PRN 04/13/18 12/02/18 release aspirin 81 mg tablet,delayed 81 mg PO DAILY 04/17/18 12/02/18 release hydrochlorothiazide 12.5 mg tablet 12.5 mg PO DAILY #90 tab 08/08/18 12/02/18 metoprolol tartrate 25 mg tablet 25 mg PO BID #180 tab 08/08/18 12/02/18 glimepiride 4 mg tablet 4 mg PO DAILY #90 tab-cap 08/21/18 12/02/18 insulin glargine 100 unit/mL (3 28 unit SUBCUT DAILY ml 08/21/18 12/02/18 mL) subcutaneous pen iron sucrose 200 mg iron/10 mL 200 mg IV ONCE PRN #10 ml 08/21/18 12/02/18 intravenous solution losartan 100 mg tablet 100 mg PO DAILY #90 tab 08/21/18 12/02/18 metformin 500 mg tablet 1,000 mg PO BID #360 tab-cap 08/21/18 12/02/18 pravastatin 10 mg tablet 10 mg PO DAILY #90 tab-cap 08/21/18 12/02/18 liraglutide 0.6 mg/0.1 mL (18 mg/3 1.2 mg SUBCUT DAILY #9 ml 10/09/18 12/02/18 mL) subcutaneous pen injector cephalexin [Keflex] 500 mg PO BID 7 Days #14 cap 12/02/18 ondansetron HCl [Zofran] 4 mg PO Q8H PRN #7 tab 12/02/18 Previous Rx's Medication Instructions Recorded lorazepam 0.5 mg tablet 0.5 mg SL TID PRN #10 tab 02/20/18 pen needle, diabetic 31 gauge x #300 ndl 03/08/1808/02 hydrochlorothiazide 12.5 mg tablet 12.5 mg PO DAILY #90 tab 08/08/18 metoprolol tartrate 25 mg tablet 25 mg PO BID #180 tab 08/08/18 glimepiride 4 mg tablet 4 mg PO DAILY #90 tab-cap 08/21/18 iron sucrose 200 mg iron/10 mL 200 mg IV ONCE PRN #10 ml 08/21/18 intravenous solution losartan 100 mg tablet 100 mg PO DAILY #90 tab 08/21/18 metformin 500 mg tablet 1,000 mg PO BID #360 tab-cap 08/21/18 pravastatin 10 mg tablet 10 mg PO DAILY #90 tab-cap 08/21/18 liraglutide 0.6 mg/0.1 mL (18 mg/3 1.2 mg SUBCUT DAILY #9 ml 10/09/18 mL) subcutaneous pen injector cephalexin [Keflex] 500 mg PO BID 7 Days #14 cap 12/02/18 ondansetron HCl [Zofran] 4 mg PO Q8H PRN #7 tab 12/02/18 Allergies Allergy/AdvReac Type Severity Reaction Status Date / Time ciprofloxacin Allergy Intermediate Skin Rash Verified 08/21/18 08:28 lisinopril AdvReac Intermediate cough Verified 08/21/18 08:28 simvastatin AdvReac Intermediate fatigue Verified 08/21/18 08:28 codeine [Codeine] AdvReac nausea/vomi Verified 08/21/18 08:28 ting General Stated Complaint: GenMedical ANDRES: 3 Review of Systems Review of Systems ROS Unobtainable: All systems reviewed & are unremarkable except as noted in HPI and below Constitutional Constitutional: Reports as per HPI, Denies chills, Reports fatigue, Denies fever(s) and Reports headache(s) Eyes Eyes: Denies blurry vision ENT Ears, Nose, Mouth, and Throat: Denies dizziness, Reports headache(s), Denies sore throat and Denies throat swelling Cardiovascular Cardiovascular: Denies chest pain and Denies dyspnea Respiratory Respiratory: Denies cough and Denies dyspnea Gastrointestinal Gastrointestinal: Denies abdominal pain, Denies diarrhea, Reports nausea and Denies vomiting Genitourinary Genitourinary: Denies hematuria and Denies dysuria Musculoskeletal Musculoskeletal: Denies back pain and Denies numbness Integumentary/Breasts Skin/Breast: Denies lesions and Denies rash Neurologic Neurologic: Denies dizziness, Reports headache(s), Denies focal weakness and Denies numbness Endocrine Endocrine: Reports fatigue Allergic/Immunologic Allergic/Immunologic: Denies throat swelling FOR[facility], [facility] Medical History COPD (chronic obstructive pulmonary disease) (Chronic 10/29/14) 2011 spirometry FEV1 65%: mod obstructive Diabetes mellitus type 2, controlled, without complications (Chronic 06/07/12) no retinopathy 01/06/14 A1C goal 7.5 Diabetes mellitus, type 2 Essential hypertension (Chronic 02/05/13) Gastroesophageal reflux disease (Chronic 04/12/11) GERD (gastroesophageal reflux disease) 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) Hiatal hernia 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) Dr Steinberg History of paroxysmal supraventricular tachycardia (Chronic) Hypertension Lichen sclerosus et atrophicus Lichen sclerosus et atrophicus (Chronic 07/26/11) Liver cirrhosis secondary to nonalcoholic steatohepatitis ([place]) (Chronic) Non-alcoholic fatty liver disease (Chronic 04/12/11) [place] [employer] Sees [facility] [place] [facility] Other and unspecified hyperlipidemia (Chronic 06/07/12) PCEq risk 11% LDL baseline 87 Premature menopause Tubular adenoma (Chronic 10/06/15) Surgical History Appendectomy 1991 Biopsy of breast R benign 1992 Colonoscopy (10/06/15) Dr Hunter, tubular adenoma, repeat 5 yrs Endoscopy Upper GI 04/06/18-[facility] Family History Father Diabetes Sister Diabetes Breast cancer Other Heart disease Personal history of malignant neoplasm Social History Smoking/Tobacco Use Status: Former Tobacco Use Drug use: Never Substance use type: does not use Household members: spouse Housing: house Number of Children: 3 number of grandchildren: 2 What type of physical activity do you participate in: none Seatbelt use: always Drive intox or ride w/intox nascar driver: No Working smoke detector in home: Yes Fire extinguisher in home: Yes Carbon monox detector in home: Yes Do you feel safe at home: Yes Do you feel safe in your relationship?: Yes Exam Const General: cooperative, healthy appearing and no acute distress [facility] Head: normal to inspection Ears: hearing grossly normal bilaterally and external ears normal Face and sinus: normal facial exam Mouth: mucous membranes dry Throat: posterior oropharynx normal Eyes General: appearance normal, both eyes and all related structures Pupils: PERRL EOM: EOM intact bilaterally Neck Neck: normal visual inspection and No submandibular swelling Lymphatic: no lymphadenopathy noted Chest Chest: normal inspection of the chest and no tenderness Resp Effort & Inspection: normal respiratory effort and able to speak in complete sentences Auscultation: clear to auscultation bilaterally Cardio Rate: regular rate Rhythm: regular rhythm GI Inspection: normal to inspection Palpation: soft, not firm, not rigid and nontender Auscultation: normal bowel sounds Back/Spine/Pelvis Thoracic/Lumbar Spine: thoracic and lumbar spine normal to inspection Skin General skin exam: no rashes or lesions noted Neuro General: alert, awake and oriented x3 Cranial Nerves: CN's II-XI intact bilaterally Cognition: normal cognition Speech: speech normal Motor: muscle tone normal throughout and strength 5/5 throughout Sensory Exam: no sensory deficits noted Extrem General: normal to inspection, full ROM, normal capillary refill, no calf tenderness bilaterally and no edema Psych Appearance: grossly normal Mental Status: mental status grossly normal Speech and Movement: speech and movement normal Affect: normal affect Course Vital Signs Vital signs: Vital Signs Temperature 97.9 F 12/02/18 10:36 Pulse 88 12/02/18 10:36 Respiratory Rate 16 12/02/18 10:36 Blood Pressure 117/75 12/02/18 10:36 Pulse Oximetry 98 12/02/18 10:36 Temperature 97.9 F 12/02/18 10:36 Pulse 88 12/02/18 10:36 Respiratory Rate 16 12/02/18 10:36 Blood Pressure 117/75 12/02/18 10:36 Blood Pressure Position Supine 12/02/18 10:36 Pulse Oximetry 98 12/02/18 10:36 Oxygen Delivery Method Room Air 12/02/18 10:36 Oxygen Flow Rate 0 12/02/18 10:36
[2018-12-02 11:26] LABS: Abs Immature Grans 0.02 k/cumm (0.0-0.09); Absolute Basophil Count 0.02 k/cumm (0.0-0.2); Absolute Eosinophil Count 0.05 k/cumm (0.0-0.7); Absolute Lymphocyte Count 0.83 k/cumm (1.2-3.4); Absolute Monocyte Count 0.75 k/cumm (0.11-0.7); Absolute Neutrophil Count 4.11 k/cumm (1.2-6.7); Basophils % 0.3; Eosinophils % 0.9; HCT 34.9 % (36.0-46.0); HGB 11.4 g/dL (12.0-15.5); Immature Grans % 0.3; Lymphocytes % 14.4; Mean Corp. HGB Concentration 32.7 g/dL (32.0-36.0); Mean Corpuscular Hemoglobin 25.2 pg (27.0-33.0); Mean Platelet Volume 9.6 fL (8.0-11.0); Neutrophils % 71.1; Platelet Count 202 x1000/uL (130-400); RBC 4.53 m/cumm (4.00-5.20); White Blood Cell Count 5.78 k/cumm (4.4-10.8)
[2018-12-02 11:46] LABS: ALT 38 U/L (14-59); AST 26 U/L (15-37); Albumin 3.8 g/dL (3.4-5.0); Alkaline Phosphatase 62 U/L (46-116); Anion Gap 11.1 mmol/L (3-11); BUN 17 mg/dL (7-18); Bilirubin, Total 1.1 mg/dL (0.2-1.0); CO2 27.9 mmol/L (21.0-32.0); CREATININE 0.84 mg/dL (0.55-1.02); Calcium 9.1 mg/dL (8.5-10.1); Chloride 97 mmol/L (98-107); Glucose 149 mg/dL (70-100); Magnesium 1.7 mg/dL (1.8-2.4); NT-proBNP 110 pg/mL; Potassium 3.5 mmol/L (3.5-5.1); Sodium 136 mmol/L (136-145); Total Protein 7.5 g/dL (6.4-8.2)
[2018-12-02 11:51] LABS: Troponin I < 0.05 ng/mL (0.00-0.06)
--- NOTE | 2018-12-02 12:08 | DI.COMBO_ITS ---
SYMPTOM/DIAGNOSIS: FATIGUE, NAUSEA, HEADACHE PA AND LATERAL CHEST: There is a small faint asymmetric density in the upper lobe which could represent a pulmonary nodule or be related to the bony structures. The lungs are otherwise clear. There is no pleural effusion. The cardiovascular structures are intact. There is no focal area of consolidation. There is no pneumothorax. No acute bony abnormality is seen. SUMMARY: No acute cardiopulmonary process is identified. There is a questionable area of abnormality in the right upper lobe which could represent a small pulmonary nodule. Further assessment with Chest CT is suggested. NONCONTRAST HEAD CT: The exam was performed according to the usual protocol. There is no evidence of intracranial hemorrhage or mass. The ventricles are normal. There is no skull fracture. The sinuses are unremarkable. There is no mastoid effusion. Note is made of debris within the left internal and external auditory canal. The soft tissues are unremarkable. IMPRESSION: No acute abnormality is identified.
--- NOTE | 2018-12-02 12:15 | DI.VRAD_ITS ---
EXAM: CT Head Without Contrast EXAM DATE/TIME: 12/02/2018 11:48 AM CLINICAL HISTORY: 68 years old, female; Pain; Headache not specified; Patient HX: Headache since Monday TECHNIQUE: Imaging protocol: Computed tomography of the head without contrast. Radiation optimization: All CT scans at this facility use at least one of these dose optimization techniques: automated exposure control; mA and/or kV adjustment per patient size (includes targeted exams where dose is matched to clinical indication); or iterative reconstruction. COMPARISON: No relevant prior studies available. FINDINGS: Brain: Unremarkable. No intracranial hemorrhage. Unremarkable white matter. No mass effect. Ventricles: Unremarkable. No ventriculomegaly. Bones/joints: Unremarkable. No acute fracture. Sinuses: Visualized sinuses are unremarkable. No fluid levels. Mastoid air cells: Visualized mastoid air cells are well aerated. Auditory system: Debris within the left internal and external auditory canal. Soft tissues: Unremarkable. IMPRESSION: No acute intracranial abnormality. Dictated and Authenticated by: Miriam Martin MD. Ordering:JONO Allison MD
--- NOTE | 2018-12-02 12:19 | DI.VRAD_ITS ---
EXAM: XR Chest, 2 Views EXAM DATE/TIME: 12/02/2018 11:10 AM CLINICAL HISTORY: 68 years old, female; Other: Fatigue and nausea since Monday TECHNIQUE: Imaging protocol: XR of the chest Views: 2 views. COMPARISON: SC XR PORTABLE CHEST AP 07/18/2018 04:53 FINDINGS: Lungs: Asymmetric nodular density right upper lobe may represent a parenchymal nodule. No focal consolidation or pleural effusion. Pleural space: No pneumothorax. Heart/Mediastinum: Unremarkable. No cardiomegaly. Bones/joints: Unremarkable for patient's age. IMPRESSION: 1. No acute cardiopulmonary disease. 2. Possible right upper lobe parenchymal nodule. Consider nonemergent CT for further evaluation. Dictated and Authenticated by: Miriam Martin MD. Ordering:JONO Allison MD
[2018-12-02] MEDS: Prochlorperazine 10 MG/2 ML VIAL IVP (12:41)
[2018-12-02 13:25] LABS: Bilirubin Negative (Negative); Blood Negative (Negative); Clarity Clear (Clear); Glucose Negative (Negative); Ketones Negative (Negative); Leukocyte Esterase Trace (Negative); Nitrite Positive (Negative); Urobilinogen 0.2 EU/dL (Up TO 0.2)
[2018-12-02 13:36] LABS: Bacteria Moderate HPF (Negative); C & S Indicated? No/Sq. Contamination; Casts Negative LPF (Negative); Crystals Negative HPF (Negative); Epithelial Cells Moderate HPF (Negative); Mucus Moderate (Negative); RBC Negative (0-2)
[2018-12-02] MEDS: Normal Saline 500 ML IV ×2 (14:14→14:15)
[2018-12-02] MEDS: Ondansetron 4 MG/2 ML VIAL IVP (14:15)
[2018-12-02] MEDS: Ketorolac 30 MG/ML VIAL IVP (14:15)
[2018-12-02] MEDS: Cephalexin 500 MG CAP PO (15:47)
[2018-12-02] MEDS: Ondansetron O.D.T. 4 MG TABEF, 3 TABS/BTL PO (15:48)
== END 2018-12-02 16:33 | disposition home or self-care (01) ==
PROVIDERS: Emergency Provider Physician Assistant; PCP Internal Medicine
DX: N39.0 Urinary tract infection, site not specified (principal); R11.0 Nausea; R19.7 Diarrhea, unspecified; R51 Headache; J44.9 Chronic obstructive pulmonary disease, unspecified; E11.9 Type 2 diabetes mellitus without complications; I10 Essential (primary) hypertension; Z87.891 Personal history of nicotine dependence
CPT/HCPCS: 36415; 80053; 96361; 96374; 96375; 99284; 70450; 71046; 81003; 81015; 83735; 83880; 84484; 85025; J0780; J1885; J2405

== ENCOUNTER 2018-12-18 00:42 | Outpatient (CLI) | payer MEDICARE, BC, SELFPAY ==
--- NOTE | 2018-12-18 13:26 | DI.CTLCSR_ITS ---
EXAM: CT CHEST LUNG CANCER SCREEN CLINICAL HISTORY: screening for lung cancer,Z87.891,PERSONAL H/O NICOTINE DEPENDENCE. TECHNIQUE: Imaging protocol: Axial computed tomography images were obtained and coronal and sagittal reformatted images were created and reviewed. CONTRAST MATERIAL: Intravenous: Omnipaque 350 Contrast volume:0 mL contrast route:IV - Oral: No COMPARISON: CT chest PE abd and pelvis w from 03/24/2018 FINDINGS: Tracheobronchial tree: Patent where visualized. Mediastinum and Lulu: No dominant adenopathy or fluid collection. Pulmonary parenchyma: There is a 0.5 cm noncalcified pulmonary nodule in the right middle lobe. Scar ring or atelectasis is seen in the left lingula. Pleura: No effusion or pneumothorax. Heart/Aorta: There atherosclerosis of the thoracic aorta. No aneurysmal dilatation is present. Hear t size is within normal limits. No significant pericardial effusion is seen. Coronary artery calcif ications are present. Upper abdomen: The liver has a nodular contour suggesting hepatic cirrhosis. The spleen is enlarged measuring 18 cm. Lymph nodes: Within normal limits. Thyroid: There are bilateral thyroid nodules present. The largest on the right measures 1.7 cm. The largest on the left measures 0.4 cm. Nonemergent thyroid ultrasound may be considered for further e valuation Bones: Degenerative changes are present in the spine. IMPRESSION: 0.5 cm right middle lobe pulmonary nodule. Hepatic cirrhosis and splenomegaly Thyroid nodules. Nonemergent thyroid ultrasound should be considered for further evaluation. Lung RADS Cat 2 - Benign Appearance / Behavior: Nodules with a very low likelihood of becoming a clin ically active cancer due to size or lack of growth DATA REPOSITORY: All CT scans at this facility are submitted to the National Radiology Data Registry (NRDR) Dose Index Registry (DIR) with the [employer] (ACR). RADIATION OPTIMIZATION: All CT scans at this facility use at least one of these dose optimization te chniques: automated exposure control; mA and/or kV adjustment per patient size (includes targeted exa ms where dose is matched to clinical indication); or iterative reconstruction.
== END 2018-12-18 01:02 ==
PROVIDERS: PCP Internal Medicine; Visit Provider Nurse Practitioner Family
DX: Z12.2 Encounter for screening for malignant neoplasm of respiratory organs (principal); Z87.891 Personal history of nicotine dependence; E04.2 Nontoxic multinodular goiter; K74.60 Unspecified cirrhosis of liver; R16.1 Splenomegaly, not elsewhere classified; R91.1 Solitary pulmonary nodule
CPT/HCPCS: G0297

== ENCOUNTER 2019-01-09 14:36 | Outpatient (CLI) | payer MEDICARE, BC, SELFPAY ==
[2019-01-09 15:15] LABS: HCT 36.8 % (36.0-46.0); HGB 11.5 g/dL (12.0-15.5)
[2019-01-09 16:13] LABS: Anion Gap 15.9 mmol/L (3-11); BUN 14 mg/dL (7-18); CO2 26.1 mmol/L (21.0-32.0); CREATININE 0.94 mg/dL (0.55-1.02); Calcium 9.7 mg/dL (8.5-10.1); Calculated LDL 45 mg/dL; Chloride 100 mmol/L (98-107); Cholesterol 113 mg/dL (50-200); Glucose 165 mg/dL (70-100); HDL Cholesterol 32 mg/dL (40-60); Iron 42 ug/dL (50-175); Potassium 4.2 mmol/L (3.5-5.1); Sodium 142 mmol/L (136-145); Triglyceride 184 mg/dL (30-150)
== END 2019-01-09 14:56 ==
PROVIDERS: PCP Internal Medicine; Visit Provider Internal Medicine
DX: I10 Essential (primary) hypertension (principal); E78.00 Pure hypercholesterolemia, unspecified; E11.9 Type 2 diabetes mellitus without complications; D64.9 Anemia, unspecified; D50.8 Other iron deficiency anemias
CPT/HCPCS: 80048; 80061; 82043; 82570; 83540; 85014; 85018

== ENCOUNTER 2019-01-10 07:22 | Outpatient (REF) | payer MEDICARE, BC, SELFPAY ==
[2019-01-10 11:09] LABS: COMMENT (LAB VIEW ONLY) 208.07 mg/dL
== END 2019-01-10 07:42 ==
LOC: LBN 07:22
PROVIDERS: PCP Internal Medicine; Visit Provider Internal Medicine
DX: D50.8 Other iron deficiency anemias (principal); I10 Essential (primary) hypertension; E11.9 Type 2 diabetes mellitus without complications
CPT/HCPCS: 82043; 82570

== ENCOUNTER 2019-01-31 01:38 | Outpatient (CLI) | payer MEDICARE, BC, SELFPAY ==
--- NOTE | 2019-01-31 12:56 | DI.US_ITS ---
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 COMPARISON: CT CHEST LUNG CANCER SCREEN from 12/18/2018 FINDINGS: In the mid to lower right lobe of the, thyroid there is a solid mildly lobulated isoechoic nodule wh ich shows some heterogeneity measuring 2.3 x 1.9 x 1.5 cm. There is a question of microcalcification s. The right lobe measures 4.7 x 1.9 x 1.7 cm. The left lobe measures 4.1 x 1.6 x 1.4 cm. There is a 12 x 8 x 9 millimeter circumscribed hypoechoic nodule at the lower pole of the right lobe which do es not show suspicious features. IMPRESSION: TI-Rads category 5. FNA is recommended for biopsy of the nodule in the right lobe.
== END 2019-01-31 01:58 ==
PROVIDERS: PCP Internal Medicine; Visit Provider Internal Medicine
DX: E04.2 Nontoxic multinodular goiter (principal)
CPT/HCPCS: 76536

== ENCOUNTER 2019-04-08 01:03 | Outpatient (RCR) | payer MEDICARE, BC, SELFPAY ==
[2019-04-04] MEDS: Normal Saline Flush 10 ML SYR IVP (10:21)
[2019-04-05] MEDS: IRON SUCROSE COMPLEX 300 MG in Normal Saline 250 ML 177 MG IV (09:37)
[2019-04-08] MEDS: IRON SUCROSE COMPLEX 300 MG in Normal Saline 250 ML 176.667 MG IVPB (13:06)
[2019-04-08] MEDS: Normal Saline Flush 10 ML SYR IVP (13:06)
== END 2019-04-19 23:59 | disposition home or self-care (01) ==
LOC: INF 01:03
PROVIDERS: PCP Internal Medicine; Visit Provider Internal Medicine
DX: D50.9 Iron deficiency anemia, unspecified (principal)
CPT/HCPCS: 96365; 96366; J1756

== ENCOUNTER 2019-04-25 12:29 | Outpatient (CLI) | payer MEDICARE, BC, SELFPAY ==
[2019-04-25 12:54] LABS: HCT 36.2 % (36.0-46.0); HGB 10.8 g/dL (12.0-15.5)
[2019-04-25 14:14] LABS: Iron 52 ug/dL (50-170)
== END 2019-04-25 12:49 ==
PROVIDERS: PCP Internal Medicine; Visit Provider Internal Medicine
DX: D50.8 Other iron deficiency anemias (principal)
CPT/HCPCS: 36415; 83540; 85014; 85018

== ENCOUNTER 2019-05-07 02:06 | Outpatient (CLI) | payer MEDICARE, BC, SELFPAY ==
--- NOTE | 2019-05-07 16:30 | DI.MAMMO_ITS ---
EXAM: MG MAMMO SCREENING CLINICAL HISTORY: screening. TECHNIQUE: Bilateral full field digital CC and MLO mammographic images were obtained with 3D tomosyn thesis and utilizing computer aided detection (CAD). COMPARISON: Available for comparison. FINDINGS: Masses/Architectural Distortion: None seen. Microcalcifications: No suspicious pleomorphic-type are seen. Skin Thickening/Nipple Retraction: None. IMPRESSION: 1. No significant interval change with no specific features of malignancy noted. 2. Unless there is more urgent need, screening mammography is recommended, as per [employer] guidelines. ACR BI-RAD Category- 1 Negative Breast Density - Category B - Scattered areas of fibroglandular density A negative radiographic report should not delay biopsy if a dominant or clinically suspicious mass is present. Up to ten percent of cancers are not identified on mammography. A negative report may reinforce clinical impression. Adenosis and dense breasts may obscure an underlying neoplasm. False positive reports average 6 to 10%. Patient will receive a letter notifying them of these results.
== END 2019-05-07 02:26 ==
PROVIDERS: PCP Internal Medicine; Visit Provider Nurse Practitioner Family
DX: Z12.31 Encounter for screening mammogram for malignant neoplasm of breast (principal)
CPT/HCPCS: 77063; 77067

== ENCOUNTER 2019-05-07 02:17 | Outpatient (RCR) | payer MEDICARE, BC, SELFPAY ==
[2019-05-07] MEDS: IRON SUCROSE COMPLEX 300 MG in Normal Saline 250 ML 176.667 MG IVPB (10:37)
[2019-05-07] MEDS: Normal Saline Flush 10 ML SYR IVP (10:37)
== END 2019-05-18 23:59 | disposition home or self-care (01) ==
LOC: INF 02:17
PROVIDERS: PCP Internal Medicine; Visit Provider Internal Medicine
DX: D50.9 Iron deficiency anemia, unspecified (principal)
CPT/HCPCS: 96365; 96366; J1756

== ENCOUNTER 2019-05-22 10:03 | Outpatient (CLI) | payer MEDICARE, BC, SELFPAY ==
[2019-05-22 10:25] LABS: HCT 33.6 % (36.0-46.0); HGB 10.5 g/dL (12.0-15.5)
[2019-05-22 11:06] LABS: Iron 52 ug/dL (50-170)
== END 2019-05-22 10:23 ==
PROVIDERS: PCP Internal Medicine; Visit Provider Internal Medicine
DX: D50.8 Other iron deficiency anemias (principal)
CPT/HCPCS: 36415; 83540; 85014; 85018

== ENCOUNTER → 2019-07-18 11:46 | Outpatient (BNVA) | payer MEDICARE, BC, SELFPAY | PROVIDERS: PCP Internal Medicine; Referring Provider Internal Medicine; Visit Provider Internal Medicine Cardiovascular Disease | DX: Z86.79 Personal history of other diseases of the circulatory system (principal); I10 Essential (primary) hypertension; E11.9 Type 2 diabetes mellitus without complications; J44.9 Chronic obstructive pulmonary disease, unspecified; Z79.4 Long term (current) use of insulin | CPT/HCPCS: 99203; 99443 ==

== ENCOUNTER 2019-12-25 08:32 | Emergency (ER) | payer MEDICARE, BC, SELFPAY ==
[2019-12-25 08:38] VITALS: BP 145/67; PULSE 88; RESP 18; TEMP 36.6; O2SAT 99
[2019-12-25 08:41] VITALS: BP 145/67; PULSE 88
--- NOTE | 2019-12-25 08:52 | W.ED.GENAD ---
Discharge Plan Disposition Patient Disposition: HOME Condition: Stable Discharge Details Clinical Impression: Gastroenteritis Primary Care Provider: Mara Pantoja ED Provider: Oma Garcia Home Meds and New Rx's Prescriptions: New ondansetron HCl 4 mg tablet 4 mg PO Q8H PRN (Reason: nausea and vomiting) Qty: 14 RF: 0 Continued lorazepam 0.5 mg tablet 0.5 mg SL TID PRN (Reason: anxiety) Qty: 10 RF: 0 aspirin [Aspirin Low Dose] 81 mg tablet,delayed release (DR/EC) 81 mg PO DAILY RF: 0 Trulicity 0.75 mg/0.5 mL pen injector 0.75 mg SC QWEEK Qty: 4 RF: 3 Hold Instructions: Unsure about using it hydrochlorothiazide 12.5 mg tablet 12.5 mg PO DAILY Qty: 90 RF: 4 metoprolol tartrate 25 mg tablet 25 mg PO BID Qty: 180 RF: 4 (DME) lancets [OneTouch UltraSoft Lancets] 1 EACH misc 1 ea Miscellaneous DAILY RF: 0 ONETOUCH ULTRA TEST STRIPS 1 EACH strip 1 ea Miscellaneous TID Qty: 300 RF: 3 (DME) pen needle, diabetic [Pen Needle] 31 gauge x 5/16 needle 4 ea Miscellaneous DAILY Qty: 300 RF: 4 Basaglar KwikPen U-100 Insulin 100 unit/mL (3 mL) insulin pen 22 unit SC DAILY Qty: 60 RF: 3 omeprazole 20 mg capsule,delayed release(DR/EC) 20 mg PO DAILY PRN (Reason: gerd) Qty: 90 RF: 3 Victoza 3-Melquiades 0.6 mg/0.1 mL (18 mg/3 mL) pen injector 1.2 mg subcut DAILY Qty: 6 RF: 3 pravastatin 10 mg tablet 10 mg PO DAILY Qty: 90 RF: 3 metformin 500 mg tablet 1,000 mg PO BID Qty: 360 RF: 3 losartan 100 mg tablet 100 mg PO DAILY Qty: 90 RF: 3 glimepiride [Amaryl] 4 mg tablet 4 mg PO QAM Qty: 90 RF: 3 Discharge Instructions Instructions: Gastroenteritis (ED) Additional Instructions: Follow up with primary care provider in 3-5 days. Return to ED sooner if any worsening or concerns. Increase oral fluids. Please take Tylenol or Ibuprofen with food every 4-6 hours as needed for pain and swelling. Take medications as prescribed. Clear liquids for the first 2 to 3 days then advance as with a bland diet as tolerated. Referrals: Mara Pantoja MD [Primary Care Provider] - Discharge Data Discharge Date/Time-TO BE ENTERED AT DEPARTURE: 12/25/19 11:20 Medical Decision Making 69-year-old female presents to the ED with chief complaint of fatigue, nausea and intermittent low-grade fever for the last week. Patient states for the last 6 to 7 days she has had nausea, she reports one episode of emesis 1 week ago, increased fatigue. Nausea is to the point where she has trouble eating or drinking or keeping any fluids down. She has not actually vomited since the first time proximately 1 week ago. She denies any chest pain, abdominal pain, diarrhea or any other associated symptoms. Upon initial exam she is tender in the left upper quadrant with palpation. Her abdomen is soft. Nondistended. She reports T-max of 99.9, she is taken Tylenol for this low-grade intermittent fever which improves her symptoms. She has a past medical history of esophageal varices, iron deficiency anemia, liver cirrhosis, cholelithiasis, diabetes type 2, and COPD. Labs show a sodium of 133, potassium 3.2, chloride 92, anion gap 16.2 BUN 23, creatinine 1.17, glucose 178 magnesium 1.7 total bilirubin is 1.9 liver enzymes are all within normal limits. Lipase is 167. She has trace ketones in her urine. COMPARISON: CT CT chest PE abd pelvis w from 03/24/2018 FINDINGS: CT examination of the abdomen and pelvis was performed with bolus infusion of 100 cc of Omnipaque 350. Images obtained through the lung bases are unremarkable. Note is made of coronary artery calcifications. There is hepatic steatosis and there is a nodular hepatic contour consistent with cirrhosis. Liver and spleen are enlarged. There is prominence tortuous veins in the upper abdomen consistent with portal venous hypertension. Gallbladder contains at least 1 stone. No biliary dilatation. Unremarkable appearance of the pancreas. No gross abdominal or pelvic adenopathy although there is slight prominence of mesenteric lymph nodes. No significant abdominal wall hernia. Appendix appears to been surgically removed. There is questionable mild wall thickening of a few loops of jejunum in the left upper quadrant, wall thickening of the distal portion of the ileum also appears to be present. Colon is unremarkable in appearance, no evidence diverticulitis although there is diverticulosis. Aerobics Instructor structures are unremarkable by CT criteria. No free fluid in the pelvis. IMPRESSION: Findings suggesting enteritis involving the distal portion of the ileum and possibly portions of the jejunum. Please correlate clinically. Cholelithiasis noted. No gallbladder wall thickening or biliary dilatation. Discussed CT results with patient who verbalizes understanding. At this time her sodium was slightly low at 133, potassium 3.2, magnesium 1.7. Discussed replenishing electrolytes with oral electrolyte fluids. Diagnosis gastroenteritis Differential diagnosis includes but not limited to small bowel obstruction, bacterial enteritis, urinary tract infection, pyelonephritis, dehydration. this text was generated using [employer] dictation system, please disregard any oddities of phrase or misspellings. HPI General Mode of arrival: ambulatory. Date/Time Provider Initiated Documentation: 12/25/19 08:37. Limitations to Documentation: no limitations. Information obtained by: patient. HPI Narrative: 69-year-old female presents to the ED with chief complaint of fatigue, nausea and intermittent low-grade fever for the last week. Patient states for the last 6 to 7 days she has had nausea, she reports one episode of emesis 1 week ago, increased fatigue. Nausea is to the point where she has trouble eating or drinking or keeping any fluids down. She has not actually vomited since the first time proximately 1 week ago. She denies any chest pain, abdominal pain, diarrhea or any other associated symptoms. Upon initial exam she is tender in the left upper quadrant with palpation. Her abdomen is soft. Nondistended. She reports T-max of 99.9, she is taken Tylenol for this low-grade intermittent fever which improves her symptoms. She has a past medical history of esophageal varices, iron deficiency anemia, liver cirrhosis, cholelithiasis, diabetes type 2, and COPD. Related Data Home Medications Medication Instructions Recorded Confirmed lancets [OneTouch UltraSoft ea 06/05/12 05/02/19 Lancets] Onetouch Ultra Test Strips 1 ea MISCELLANEOUS TID #300 strip 07/11/17 12/25/19 lorazepam 0.5 mg tablet 0.5 mg SL TID PRN #10 tab 02/20/18 12/25/19 aspirin 81 mg tablet,delayed 81 mg PO DAILY 04/17/18 12/25/19 release pen needle, diabetic 31 gauge x #300 ndl 12/05/18 12/11/1908/02 insulin glargine 100 unit/mL (3 22 unit SC DAILY #60 ml 03/28/19 12/25/19 mL) subcutaneous pen omeprazole 20 mg capsule,delayed 20 mg PO DAILY PRN #90 tab-cap 04/09/19 12/25/19 release dulaglutide 0.75 mg/0.5 mL 0.75 mg SC QWEEK #4 syringe 06/25/19 06/25/19 subcutaneous pen injector liraglutide 0.6 mg/0.1 mL (18 mg/3 1.2 mg SUBCUT DAILY #6 syringe 07/01/19 12/25/19 mL) subcutaneous pen injector hydrochlorothiazide 12.5 mg tablet 12.5 mg PO DAILY #90 tab 07/18/19 12/25/19 metoprolol tartrate 25 mg tablet 25 mg PO BID #180 tab 07/18/19 12/25/19 glimepiride 4 mg tablet 4 mg PO QAM #90 tab 09/10/19 12/25/19 losartan 100 mg tablet 100 mg PO DAILY #90 tab 09/10/19 12/25/19 metformin 500 mg tablet 1,000 mg PO BID #360 tab-cap 09/10/19 12/25/19 pravastatin 10 mg tablet 10 mg PO DAILY #90 tab-cap 09/10/19 12/25/19 ondansetron HCl 4 mg PO Q8H PRN #14 tab 12/25/19 Previous Rx's Medication Instructions Recorded lorazepam 0.5 mg tablet 0.5 mg SL TID PRN #10 tab 02/20/18 pen needle, diabetic 31 gauge x #300 ndl 12/05/1808/02 insulin glargine 100 unit/mL (3 22 unit SC DAILY #60 ml 03/28/19 mL) subcutaneous pen omeprazole 20 mg capsule,delayed 20 mg PO DAILY PRN #90 tab-cap 04/09/19 release dulaglutide 0.75 mg/0.5 mL 0.75 mg SC QWEEK #4 syringe 06/25/19 subcutaneous pen injector liraglutide 0.6 mg/0.1 mL (18 mg/3 1.2 mg SUBCUT DAILY #6 syringe 07/01/19 mL) subcutaneous pen injector hydrochlorothiazide 12.5 mg tablet 12.5 mg PO DAILY #90 tab 07/18/19 metoprolol tartrate 25 mg tablet 25 mg PO BID #180 tab 07/18/19 glimepiride 4 mg tablet 4 mg PO QAM #90 tab 09/10/19 losartan 100 mg tablet 100 mg PO DAILY #90 tab 09/10/19 metformin 500 mg tablet 1,000 mg PO BID #360 tab-cap 09/10/19 pravastatin 10 mg tablet 10 mg PO DAILY #90 tab-cap 09/10/19 ondansetron HCl 4 mg PO Q8H PRN #14 tab 12/25/19 Allergies Allergy/AdvReac Type Severity Reaction Status Date / Time ciprofloxacin Allergy Intermediate Skin Rash Verified 12/25/19 08:41 lisinopril AdvReac Intermediate cough Verified 12/25/19 08:41 simvastatin AdvReac Intermediate fatigue Verified 12/25/19 08:41 codeine [Codeine] AdvReac nausea/vomi Verified 12/25/19 08:41 ting General Stated Complaint: Abd Prob ANDRES: 3 Review of Systems Narrative: Constitutional: Negative for weight loss, alert and oriented, well groomed, normal body habitus, appears comfortable. HEENT: Denies trauma, headaches, blurry vision, nasal discharge, sore throat, trouble swallowing. Chest: Denies chest pain, palpitations, irregular rhythm, hypertension. Respiratory: Denies Shortness of breath, cough, hemoptysis. GI: Denies diarrhea, constipation. Positive abdominal pain, nausea 1 episode of vomiting. : Denies dysuria, hematuria, flank pain, rectal bleeding. Neuro: Denies dizziness, blurry vision, weakness, syncope, headache or facial numbness. Hematologic: Denies easy bruising, intolerance to heat or cold, hair loss. 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) Dr Steinberg History of paroxysmal supraventricular tachycardia Hypertension Lichen sclerosus et atrophicus Lichen sclerosus et atrophicus (07/26/11) Liver cirrhosis secondary to nonalcoholic steatohepatitis (SILVESTRE) Non-alcoholic fatty liver disease (04/12/11) [place] [employer] Sees [facility] [place] [facility] Other and unspecified hyperlipidemia (06/07/12) PCEq risk 11% LDL baseline 87 Premature menopause Pulmonary nodule Tubular adenoma (10/06/15) Surgical History Appendectomy 1991 Biopsy of breast R benign 1992 Colonoscopy (10/06/15) Dr Hunter, tubular adenoma, repeat 5 yrs End[place] [place] [id number] Bensen Family History Father Diabetes Sister Diabetes Breast cancer Other Heart disease Personal history of malignant neoplasm Social History Smoking/Tobacco Use Status: Former Tobacco Use Alcohol Intake: never Drug use: Never Substance use type: does not use Household members: spouse Housing: house Number of Children: 3 number of grandchildren: 2 What is your relationship status?: Panel score (0-1 are the most socially isolated patients): 1 What type of physical activity do you participate in: none Seatbelt use: always Drive intox or ride w/intox mixer driver: No Working smoke detector in home: Yes Fire extinguisher in home: Yes Carbon monox detector in home: Yes Do you feel safe at home: Yes Do you feel safe in your relationship?: Yes Female Reproductive History Menstrual Menopause type: natural History History 3 Para 3 Hx # Term Pregnancies Multiple births Hx # Pregnancies Ectopic pregnancies AB induced Hx Number of Living Children AB spontaneous Exam Narrative Exam Narrative: Constitutional: Alert and oriented x3. Appears stated age. Normal body habitus. Head: Normocephalic, no trauma. Eyes: Pupils PERRLA, Red reflex noted, EOM's intact. Eyelids symmetrical without lesions, discharge, or swelling. ENT: Bilateral TM's WNL, External ear normal to inspection, no mastoid TTP, swelling, or erythema, Nasal turbinates WNL, no nasal discharge. Normal dentition, Posterior pharynx WNL, no exudate. Chest: RRR, Normal S1, S2, distal pulses intact. Resp: Lungs clear to auscultation bilaterally, no wheezes, rales, or rhonchi. Abdomen: Soft nondistended, tender to palpation left upper quadrant and mid epigastric. Normoactive bowel sounds all 4 quadrants. Musculoskeletal: Normal gait, 5/5 strength to all four extremities. Skin: No suspicious rashes or lesions. Capillary refill less than 2 sec. Neurologic: Cranial nerves II-XII intact. Alert and oriented x 3. DTR's intact. Hematologic/Lymphatic: No ecchymosis, no lymphadenopathy. Course Vital Signs Vital signs: Vital Signs Temperature 36.6 C 12/25/19 08:38 Pulse 88 12/25/19 08:38 Respiratory Rate 18 12/25/19 08:38 Blood Pressure 145/67 H 12/25/19 08:38 Pulse Oximetry 99 12/25/19 08:38 Temperature 36.6 C 12/25/19 08:38 Temperature Source Skin 12/25/19 08:38 Pulse 88 12/25/19 08:38 Respiratory Rate 18 12/25/19 08:38 Respiratory Effort 12/25/19 08:45 Blood Pressure 145/67 H 12/25/19 08:38 Blood Pressure Position Sitting 12/25/19 08:38 Pulse Oximetry 99 12/25/19 08:38 Oxygen Delivery Method Room Air 12/25/19 08:38 Oxygen Flow Rate 0 12/25/19 08:38 Pain Level 0 12/25/19 08:38
[2019-12-25] MEDS: Normal Saline 1,000 ML 1000 ML IV (09:00)
[2019-12-25] MEDS: Normal Saline Flush 10 ML SYR IVP (09:05)
[2019-12-25 09:08] LABS: Abs Immature Grans 0.06 10^3/uL (0.0-0.06); Absolute Basophil Count 0.02 10^3/uL (0.0-0.2); Absolute Lymphocyte Count 0.67 10^3/uL (1.2-3.4); Absolute Monocyte Count 0.79 10^3/uL (0.1-0.8); Basophils % 0.3; HGB 10.6 g/dL (11.2-15.7); Immature Grans % 0.8; MCH 23.6 pg (27.0-33.0); MCHC 31.2 % (32.0-36.0); MCV 75.6 fL (80-95); MPV 9.8 fL (8.0-11.0); Monocytes % 10.6; Neutrophils % 79.3; Nucleated RBC 0 %; Platelet Count 272 10^3/uL (130-400); RDW 18.7 % (11.7-14.6); RDW-SD 49.3 fL; WBC 7.44 10^3/uL (4.4-10.8)
[2019-12-25] MEDS: Ondansetron 4 MG/2 ML VIAL IVP (09:10)
[2019-12-25 09:16] LABS: Lipase 167 U/L (73-393)
[2019-12-25 09:28] LABS: ALT 31 U/L (14-59); AST 27 U/L (15-37); Albumin 3.9 g/dL (3.4-5.0); Alkaline Phosphatase 86 U/L (46-116); Anion Gap 16.2 mmol/L (3-11); BUN 23 mg/dL (7-18); Bilirubin, Total 1.9 mg/dL (0.2-1.0); CO2 24.8 mmol/L (21.0-32.0); CREATININE 1.17 mg/dL (0.55-1.02); Calcium 8.9 mg/dL (8.5-10.1); Chloride 92 mmol/L (98-107); Glucose 178 mg/dL (74-106); Magnesium 1.7 mg/dL (1.8-2.4); Potassium 3.2 mmol/L (3.5-5.1); Sodium 133 mmol/L (136-145)
[2019-12-25] MEDS: Normal Saline - Diluent 50 ML VIAL IV (09:55)
[2019-12-25] MEDS: Omnipaque 350 MG/ML 100 ML BTL IJ (09:56)
--- NOTE | 2019-12-25 09:59 | DI.CT_ITS ---
EXAM: CT ABDOMEN PELVIS W CLINICAL HISTORY: LUQ abd pain, nausea TECHNIQUE: COMPARISON: CT CT chest PE abd pelvis w from 03/24/2018 FINDINGS: CT examination of the abdomen and pelvis was performed with bolus infusion of 100 cc of Omnipaque 350 . Images obtained through the lung bases are unremarkable. Note is made of coronary artery calcific ations. There is hepatic steatosis and there is a nodular hepatic contour consistent with cirrhosis. Liver a nd spleen are enlarged. There is prominence tortuous veins in the upper abdomen consistent with port al venous hypertension. Gallbladder contains at least 1 stone. No biliary dilatation. Unremarkable appearance of the pancreas. No gross abdominal or pelvic adenopathy although there is slight prominence of mesenteric lymph nodes . No significant abdominal wall hernia. Appendix appears to been surgically removed. There is questionable mild wall thickening of a few loops of jejunum in the left upper quadrant, wall thickening of the distal portion of the ileum also appears to be present. Colon is unremarkable in appearance, no evidence diverticulitis although there is diverticulosis. Cabin Crew structures are unremarkable by CT criteria. No free fluid in the pelvis. IMPRESSION: Findings suggesting enteritis involving the distal portion of the ileum and possibly portions of the jejunum. Please correlate clinically. Cholelithiasis noted. No gallbladder wall thickening or biliary dilatation. RADIATION DOSE DELIVERED: 945.97mGy.cm Total DLP
[2019-12-25 11:13] VITALS: O2SAT 98
[2019-12-25 11:14] VITALS: BP 107/62; PULSE 84; O2SAT 98
[2019-12-25 11:14] LABS: Bilirubin Negative (Negative); Blood Negative (Negative); Clarity Clear (Clear); Glucose Negative (Negative); Ketones Trace mg/dL (Negative); Leukocyte Esterase Negative (Negative); Nitrite Negative (Negative); Urobilinogen 0.2 EU/dL (Up TO 0.2); pH 5.5 (5-8)
== END 2019-12-25 11:20 | disposition home or self-care (01) ==
PROVIDERS: Emergency Provider Registered Nurse Emergency; PCP Internal Medicine
DX: R50.9 Fever, unspecified (principal); R11.0 Nausea; K52.9 Noninfective gastroenteritis and colitis, unspecified; R10.12 Left upper quadrant pain; E87.6 Hypokalemia; E83.42 Hypomagnesemia; E87.1 Hypo-osmolality and hyponatremia; E11.9 Type 2 diabetes mellitus without complications; Z79.4 Long term (current) use of insulin; J44.9 Chronic obstructive pulmonary disease, unspecified; Z87.891 Personal history of nicotine dependence; I10 Essential (primary) hypertension
CPT/HCPCS: 36415; 80053; 83690; 96361; 96374; 99285; 74177; 81003; 83735; 85025; J2405; J3490

== ENCOUNTER 2020-01-06 03:22 | Outpatient (CLI) | payer MEDICARE, BC, SELFPAY ==
[2020-01-06 07:26] LABS: HCT 33.4 % (36.0-46.0); HGB 9.9 g/dL (11.2-15.7); MCHC 29.6 % (32.0-36.0); MCV 77.5 fL (80-95); MPV 9.6 fL (8.0-11.0); Platelet Count 219 10^3/uL (130-400); RBC 4.31 10^6/uL (3.93-5.22); RDW 16.7 % (11.7-14.6); RDW-SD 46.8 fL; WBC 5.02 10^3/uL (4.4-10.8)
[2020-01-06 08:26] LABS: COMMENT (LAB VIEW ONLY) 131.22 mg/dL; Microalb ug/mg Crea 9.2 ug/mg Cr
[2020-01-06 08:28] LABS: Iron 33 ug/dL (50-170)
[2020-01-06 08:29] LABS: Anion Gap 11.4 mmol/L (3-11); BUN 16 mg/dL (7-18); CO2 28.6 mmol/L (21.0-32.0); CREATININE 0.93 mg/dL (0.55-1.02); Calculated LDL 52 mg/dL (<100); Chloride 101 mmol/L (98-107); Cholesterol 114 mg/dL (<200); Estimated GFR 59.95 (mL/min/1.73m2); Glucose 156 mg/dL (74-106); HDL Cholesterol 36 mg/dL (40-60); Potassium 3.9 mmol/L (3.5-5.1); Sodium 141 mmol/L (136-145); Triglyceride 131 mg/dL (<150)
== END 2020-01-06 03:42 ==
PROVIDERS: PCP Internal Medicine; Visit Provider Internal Medicine
DX: E11.9 Type 2 diabetes mellitus without complications (principal); I10 Essential (primary) hypertension; D50.8 Other iron deficiency anemias; E78.00 Pure hypercholesterolemia, unspecified; J44.9 Chronic obstructive pulmonary disease, unspecified
CPT/HCPCS: 36415; 80048; 80061; 85027; 82043; 82570; 83540

== ENCOUNTER 2020-03-31 02:34 | Outpatient (CLI) | payer MEDICARE, BC, SELFPAY ==
[2020-04-03 13:21] LABS: TB Interpretation Negative (Negative)
== END 2020-03-31 02:54 ==
PROVIDERS: Internal Medicine Gastroenterology; PCP Internal Medicine; Visit Provider Hospitalist
DX: K50.80 Crohn's disease of both small and large intestine without complications (principal)
CPT/HCPCS: 36415; 80053; 85025; 86140; 86480

== ENCOUNTER 2020-04-10 04:37 | Outpatient (RCR) | payer MEDICARE, BC, SELFPAY ==
[2020-04-10] MEDS: Acetaminophen 325 MG TAB 650 MG PO (09:15)
[2020-04-10] MEDS: Normal Saline Flush 10 ML SYR IVP (09:15)
[2020-04-10] MEDS: Loratidine 10 MG TAB PO (09:15)
[2020-04-10] MEDS: VEDOLIZUMAB 300 MG in Normal Saline 250 ML 500 MG IVPB (09:37)
== END 2020-04-19 23:59 | disposition home or self-care (01) ==
LOC: INF 04:37
PROVIDERS: PCP Internal Medicine; Visit Provider Internal Medicine
DX: K50.90 Crohn's disease, unspecified, without complications (principal)
CPT/HCPCS: 96365; J3380

== ENCOUNTER 2020-04-23 04:02 | Outpatient (CLI) | payer MEDICARE, BC, SELFPAY ==
[2020-04-23 08:29] LABS: Abs Immature Grans 0.02 10^3/uL (0.0-0.06); Absolute Basophil Count 0.01 10^3/uL (0.0-0.2); Absolute Eosinophil Count 0.04 10^3/uL (0.0-0.7); Absolute Monocyte Count 0.69 10^3/uL (0.1-0.8); Absolute Neutrophil Count 3.32 10^3/uL (1.2-6.7); Basophils % 0.2; Eosinophils % 0.9; HCT 31.2 % (36.0-46.0); HGB 9.5 g/dL (11.2-15.7); Immature Grans % 0.4; Lymphocytes % 12.8; MCH 22.2 pg (27.0-33.0); MCHC 30.4 % (32.0-36.0); MCV 72.9 fL (80-95); MPV 9.8 fL (8.0-11.0); Monocytes % 14.7; Nucleated RBC 0 %; Platelet Count 175 10^3/uL (130-400); RBC 4.28 10^6/uL (3.93-5.22); RDW 17.4 % (11.7-14.6); RDW-SD 45.4 fL; WBC 4.68 10^3/uL (4.4-10.8)
[2020-04-23 08:42] LABS: Anisocytosis 1+; Diff Comment RBC Morph Reviewed; Hypochromasia 3+; Microcytosis 3+
[2020-04-23 09:41] LABS: Iron 36 ug/dL (50-170)
[2020-04-23 09:45] LABS: ALT 36 U/L (14-59); AST 24 U/L (15-37); Albumin 3.7 g/dL (3.4-5.0); Alkaline Phosphatase 76 U/L (46-116); Anion Gap 12.6 mmol/L (3-11); BUN 41 mg/dL (7-18); Bilirubin, Total 0.8 mg/dL (0.2-1.0); C-Reactive Protein 3.68 mg/dL (0.0-0.3); CO2 23.4 mmol/L (21.0-32.0); CREATININE 1.9 mg/dL (0.55-1.02); Chloride 101 mmol/L (98-107); Estimated GFR 26.29 (mL/min/1.73m2); Glucose 155 mg/dL (74-106); Potassium 3.9 mmol/L (3.5-5.1); Sodium 137 mmol/L (136-145); Total Protein 6.9 g/dL (6.4-8.2)
== END 2020-04-23 04:03 | disposition home or self-care (01) ==
PROVIDERS: Internal Medicine Gastroenterology; PCP Internal Medicine; Visit Provider Internal Medicine
DX: K50.80 Crohn's disease of both small and large intestine without complications (principal); D50.9 Iron deficiency anemia, unspecified
CPT/HCPCS: 36415; 80053; 85027; 83540; 85025; 86140

== ENCOUNTER 2020-04-24 07:24 | Outpatient (RCR) | payer MEDICARE, BC, SELFPAY ==
[2020-04-24] MEDS: Loratidine 10 MG TAB PO (09:30)
[2020-04-24] MEDS: Acetaminophen 325 MG TAB 650 MG PO (09:30)
[2020-04-24] MEDS: Normal Saline Flush 10 ML SYR IVP (09:38)
[2020-04-24] MEDS: VEDOLIZUMAB 300 MG in Normal Saline 250 ML 500 MG IVPB (09:38)
== END 2020-05-17 23:59 | disposition home or self-care (01) ==
LOC: INF 07:24
PROVIDERS: PCP Internal Medicine; Visit Provider Internal Medicine
DX: K50.90 Crohn's disease, unspecified, without complications (principal)
CPT/HCPCS: 96365; J3380

== ENCOUNTER 2020-05-07 02:55 | Outpatient (CLI) | payer MEDICARE, BC, SELFPAY ==
[2020-05-07 11:12] LABS: Abs Immature Grans 0.02 10^3/uL (0.0-0.06); Absolute Basophil Count 0.03 10^3/uL (0.0-0.2); Absolute Eosinophil Count 0.06 10^3/uL (0.0-0.7); Absolute Lymphocyte Count 0.78 10^3/uL (1.2-3.4); Absolute Monocyte Count 0.41 10^3/uL (0.1-0.8); Absolute Neutrophil Count 3.48 10^3/uL (1.2-6.7); Basophils % 0.6; Eosinophils % 1.3; HCT 30.1 % (36.0-46.0); Immature Grans % 0.4; Lymphocytes % 16.3; MCH 22.5 pg (27.0-33.0); MCHC 29.9 % (32.0-36.0); MCV 75.3 fL (80-95); MPV 9.5 fL (8.0-11.0); Monocytes % 8.6; Neutrophils % 72.8; Nucleated RBC 0 %; Platelet Count 222 10^3/uL (130-400); RDW 17.2 % (11.7-14.6); RDW-SD 45.5 fL; WBC 4.78 10^3/uL (4.4-10.8)
[2020-05-07 11:49] LABS: ALT 55 U/L (14-59); AST 34 U/L (15-37); Albumin 3.9 g/dL (3.4-5.0); Alkaline Phosphatase 84 U/L (46-116); Anion Gap 11.3 mmol/L (3-11); BUN 14 mg/dL (7-18); Bilirubin, Direct 0.26 mg/dL (0.00-0.20); Bilirubin, Total 0.8 mg/dL (0.2-1.0); C-Reactive Protein 0.46 mg/dL (0.0-0.3); CO2 26.7 mmol/L (21.0-32.0); CREATININE 0.9 mg/dL (0.55-1.02); Calcium 9.7 mg/dL (8.5-10.1); Chloride 101 mmol/L (98-107); Glucose 155 mg/dL (74-106); Potassium 4.1 mmol/L (3.5-5.1); Sodium 139 mmol/L (136-145); Total Protein 7.1 g/dL (6.4-8.2)
== END 2020-05-07 02:56 | disposition home or self-care (01) ==
PROVIDERS: PCP Internal Medicine; Visit Provider Internal Medicine Gastroenterology
DX: K50.012 Crohn's disease of small intestine with intestinal obstruction (principal)
CPT/HCPCS: 36415; 80048; 80076; 85025; 86140

== ENCOUNTER 2020-05-22 04:39 | Outpatient (RCR) | payer MEDICARE, BC, SELFPAY ==
[2020-05-22] MEDS: Normal Saline Flush 10 ML SYR IVP (09:00)
[2020-05-22] MEDS: Loratidine 10 MG TAB PO (09:00)
[2020-05-22] MEDS: Acetaminophen 325 MG TAB 650 MG PO (09:00)
[2020-05-22] MEDS: VEDOLIZUMAB 300 MG in Normal Saline 250 ML 500 MG IVPB (09:24)
== END 2020-06-17 23:59 | disposition home or self-care (01) ==
LOC: INF 04:39
PROVIDERS: PCP Internal Medicine; Visit Provider Internal Medicine
DX: K50.90 Crohn's disease, unspecified, without complications (principal)
CPT/HCPCS: 96365; J3380

== ENCOUNTER 2020-06-17 03:29 | Outpatient (CLI) | payer MEDICARE, BC, SELFPAY ==
[2020-06-17 08:36] LABS: Abs Immature Grans 0.02 10^3/uL (0.0-0.06); Absolute Basophil Count 0.02 10^3/uL (0.0-0.2); Absolute Eosinophil Count 0.05 10^3/uL (0.0-0.7); Absolute Lymphocyte Count 0.53 10^3/uL (1.2-3.4); Absolute Monocyte Count 0.41 10^3/uL (0.1-0.8); Absolute Neutrophil Count 3.17 10^3/uL (1.2-6.7); Basophils % 0.5; Eosinophils % 1.2; HCT 31.5 % (36.0-46.0); HGB 9.1 g/dL (11.2-15.7); Immature Grans % 0.5; Lymphocytes % 12.6; MCH 21.8 pg (27.0-33.0); MCHC 28.9 % (32.0-36.0); MCV 75.4 fL (80-95); MPV 10.4 fL (8.0-11.0); Monocytes % 9.8; Neutrophils % 75.4; Nucleated RBC 0 %; Platelet Count 148 10^3/uL (130-400); RBC 4.18 10^6/uL (3.93-5.22); RDW 16.4 % (11.7-14.6); RDW-SD 44.6 fL
[2020-06-17 08:53] LABS: ALT 51 U/L (14-59); AST 25 U/L (15-37); Albumin 3.8 g/dL (3.4-5.0); Alkaline Phosphatase 88 U/L (46-116); Anion Gap 11.4 mmol/L (3-11); BUN 17 mg/dL (7-18); Bilirubin, Total 0.8 mg/dL (0.2-1.0); CO2 27.6 mmol/L (21.0-32.0); CREATININE 0.9 mg/dL (0.55-1.02); Chloride 99 mmol/L (98-107); Glucose 335 mg/dL (74-106); Sodium 138 mmol/L (136-145); Total Protein 7.5 g/dL (6.4-8.2)
[2020-06-17 09:07] LABS: Bilirubin, Direct 0.3 mg/dL (0.0-0.2); C-Reactive Protein 0.54 mg/dL (0.0-0.3)
== END 2020-06-17 03:30 | disposition home or self-care (01) ==
LOC: LBO 03:29
PROVIDERS: PCP Internal Medicine; Visit Provider Hospitalist
DX: K50.012 Crohn's disease of small intestine with intestinal obstruction (principal)
CPT/HCPCS: 36415; 80048; 80076; 85025; 86140

== ENCOUNTER 2020-06-19 03:20 | Outpatient (CLI) | payer MEDICARE, BC, SELFPAY ==
--- NOTE | 2020-06-19 14:33 | DI.CTLCSR_ITS ---
EXAM: CT CHEST LUNG CANCER SCREEN CLINICAL HISTORY: Screening for lung cancer,FORMER SMOKER, Z87.891 TECHNIQUE: CT examination of the chest was performed utilizing low-dose lung cancer screening protoc ol. COMPARISON: CT CT CHEST LUNG CANCER SCREEN from 12/18/2018 FINDINGS: Images obtained through the upper abdomen show nodular hepatic contour consistent with cirrhosis and moderate splenomegaly. Note is made of coronary artery calcification. Possible right thyroid lobe nodule, measuring up to 2 cm in diameter, ultrasound study of December showed a TI-RADS category 5 nodule with biopsy recommended, please correlate clinically. There is no mediastinal or hilar adenopathy. Mediastinal vascular structures appear intact by noncon trast criteria. Thoracic ascending aorta is at the upper limits of normal in diameter at about 40 millimeters. Tracheobronchial tree appears intact. No pleural effusion or pleural-based mass. Lungs are predominantly clear with some mild central lobular pulmonary emphysematous changes. A prev iously described 5 millimeter mean diameter right middle lobe noncalcified intrapulmonary nodule is a gain seen and unchanged on today's examination. No additional new nodule identified. IMPRESSION: Negative LDCT of the chest.Lung RADS Cat 2 - Benign Appearance / Behavior: Nodules with a very low li kelihood of becoming a clinically active cancer due to size or lack of growth Continue annual screening with LDCTin 12 months. RADIATION DOSE DELIVERED: LINK-TO-SR Total DLP 73.25mGy.cm Total DLP RADIATION OPTIMIZATION: All CT scans at this facility use at least one of these dose optimization te chniques: automated exposure control; mA and/or kV adjustment per patient size (includes targeted exa ms where dose is matched to clinical indication); or iterative reconstruction.
== END 2020-06-19 03:40 ==
PROVIDERS: PCP Internal Medicine; Visit Provider Internal Medicine
DX: Z87.891 Personal history of nicotine dependence (principal); R91.1 Solitary pulmonary nodule
CPT/HCPCS: 71271

== ENCOUNTER 2020-07-17 09:00 | Outpatient (RCR) | payer MEDICARE, BC, SELFPAY ==
[2020-07-17] MEDS: Acetaminophen 325 MG TAB 650 MG PO (09:11)
[2020-07-17] MEDS: Normal Saline Flush 10 ML SYR IVP (09:12)
[2020-07-17] MEDS: Loratidine 10 MG TAB PO (09:12)
[2020-07-17 09:25] LABS: HGB 8.4 g/dL (11.2-15.7); MCH 21.6 pg (27.0-33.0); MPV 9.9 fL (8.0-11.0); Nucleated RBC 0 %; RBC 3.89 10^6/uL (3.93-5.22); RDW 18.6 % (11.7-14.6); RDW-SD 47.8 fL; WBC 3.76 10^3/uL (4.4-10.8)
[2020-07-17] MEDS: VEDOLIZUMAB 300 MG in Normal Saline 250 ML 500 MG IVPB (09:32)
[2020-07-17 09:37] LABS: ALT 35 U/L (14-59); AST 36 U/L (15-37); Albumin 3.8 g/dL (3.4-5.0); Alkaline Phosphatase 71 U/L (46-116); Bilirubin, Direct 0.5 mg/dL (0.0-0.2); Bilirubin, Total 1.3 mg/dL (0.2-1.0); C-Reactive Protein 3.51 mg/dL (0.0-0.3); Total Protein 7.2 g/dL (6.4-8.2)
[2020-07-17 09:45] LABS: Absolute Basophil Count 0.04 10^3/uL (0.0-0.2); Absolute Lymphocyte Count 0.23 10^3/uL (1.2-3.4); Absolute Monocyte Count 0.19 10^3/uL (0.1-0.8); Bands % 3; Platelet Count 212 10^3/uL (130-400)
[2020-07-17 09:46] LABS: Metamyelocytes % 1; Myelocytes % 2
[2020-07-17 09:47] LABS: Anisocytosis 1+; Diff Comment Manual Differential; Hypochromasia 2+; Microcytosis 2+; Polychromasia Present
== END 2020-07-17 23:59 | disposition home or self-care (01) ==
LOC: INF 09:00
PROVIDERS: Hospitalist; PCP Internal Medicine; Visit Provider Internal Medicine
DX: K50.919 Crohn's disease, unspecified, with unspecified complications (principal)
CPT/HCPCS: 36415; 80076; 96365; 85025; 86140; J3380

== ENCOUNTER → 2020-07-27 09:17 | Outpatient (BNVA) | payer MEDICARE, BC, SELFPAY | PROVIDERS: PCP Internal Medicine; Referring Provider Internal Medicine; Visit Provider Internal Medicine Cardiovascular Disease | DX: I47.1 Supraventricular tachycardia (principal); E11.9 Type 2 diabetes mellitus without complications; I10 Essential (primary) hypertension; K76.6 Portal hypertension; Z79.4 Long term (current) use of insulin; J44.9 Chronic obstructive pulmonary disease, unspecified; E78.5 Hyperlipidemia, unspecified; Z87.19 Personal history of other diseases of the digestive system | CPT/HCPCS: 99213 ==

== ENCOUNTER 2020-08-13 02:36 | Outpatient (CLI) | payer MEDICARE, BC, SELFPAY ==
[2020-08-13 10:14] LABS: Abs Immature Grans 0.05 10^3/uL (0.0-0.06); Absolute Basophil Count 0.01 10^3/uL (0.0-0.2); Absolute Eosinophil Count 0.05 10^3/uL (0.0-0.7); Absolute Lymphocyte Count 0.57 10^3/uL (1.2-3.4); Absolute Monocyte Count 0.48 10^3/uL (0.1-0.8); Absolute Neutrophil Count 3.25 10^3/uL (1.2-6.7); Basophils % 0.2; Eosinophils % 1.1; HCT 29.1 % (36.0-46.0); HGB 8.5 g/dL (11.2-15.7); Immature Grans % 1.1; Lymphocytes % 12.9; MCH 21.3 pg (27.0-33.0); MCHC 29.2 % (32.0-36.0); MCV 72.8 fL (80-95); MPV 10.3 fL (8.0-11.0); Monocytes % 10.9; Neutrophils % 73.8; Nucleated RBC 0 %; Platelet Count 176 10^3/uL (130-400); RDW 17.5 % (11.7-14.6); RDW-SD 45.4 fL; WBC 4.41 10^3/uL (4.4-10.8)
[2020-08-13 10:29] LABS: Basophilic Stippling Present; Diff Comment Diff Reviewed; Microcytosis 1+
[2020-08-13 11:11] LABS: ALT 46 U/L (14-59); AST 36 U/L (15-37); Albumin 3.9 g/dL (3.4-5.0); Alkaline Phosphatase 84 U/L (46-116); Anion Gap 11.8 mmol/L (3-11); BUN 16 mg/dL (7-18); Bilirubin, Total 0.8 mg/dL (0.2-1.0); C-Reactive Protein 0.71 mg/dL (0.0-0.3); CO2 25.2 mmol/L (21.0-32.0); CREATININE 0.9 mg/dL (0.55-1.02); Calcium 8.9 mg/dL (8.5-10.1); Chloride 101 mmol/L (98-107); Glucose 299 mg/dL (74-106); Potassium 4.7 mmol/L (3.5-5.1); Sodium 138 mmol/L (136-145); Total Protein 7.1 g/dL (6.4-8.2)
== END 2020-08-13 02:37 | disposition home or self-care (01) ==
LOC: LBO 02:36
PROVIDERS: PCP Internal Medicine; Visit Provider Hospitalist
DX: K50.80 Crohn's disease of both small and large intestine without complications (principal)
CPT/HCPCS: 36415; 80053; 85025; 86140

== ENCOUNTER 2020-09-11 05:39 | Outpatient (RCR) | payer MEDICARE, BC, SELFPAY ==
[2020-09-11] MEDS: Loratidine 10 MG TAB PO (09:11)
[2020-09-11] MEDS: Acetaminophen 325 MG TAB 650 MG PO (09:11)
[2020-09-11] MEDS: Normal Saline Flush 10 ML SYR IVP (09:12)
[2020-09-11] MEDS: VEDOLIZUMAB 300 MG in Normal Saline 250 ML 500 MG IVPB (09:39)
== END 2020-09-16 23:59 | disposition home or self-care (01) ==
LOC: INF 05:39
PROVIDERS: PCP Internal Medicine; Visit Provider Internal Medicine
DX: K50.90 Crohn's disease, unspecified, without complications (principal)
CPT/HCPCS: 96365; J3380

== ENCOUNTER 2020-10-12 06:57 | Day surgery (SDC) | payer MEDICARE, BC, SELFPAY ==
[2020-10-12 07:23] VITALS: BP 96/55; PULSE 78; RESP 16; TEMP 36.2; O2SAT 99
--- NOTE | 2020-10-12 07:23 | ANES.PREOP_ITS ---
General Info Date of Service Date Performed: 10/12/20 Height: 5 ft 5 in Weight: 66.224 kg Body Mass Index (BMI): 24.3 Surgical Procedure: Operation Date: 10/12/20 08:40 Proposed Procedures Side Surgeon p Cataract Extraction with IOL Implant Right Chavo Fritz MD Meds Allergies and Home Medications Allergies Allergy/AdvReac Type Severity Reaction Status Date / Time ciprofloxacin Allergy Intermediate Skin Rash Verified 10/08/20 15:31 lisinopril AdvReac Intermediate cough Verified 10/08/20 15:31 simvastatin AdvReac Intermediate fatigue Verified 10/08/20 15:31 codeine [Codeine] AdvReac nausea/vomi Verified 10/08/20 15:31 ting Home Medication Medication Instructions Recorded lancets [OneTouch UltraSoft ea 06/05/12 Lancets] Best Response Strategiesuch Ultra Test Strips 1 ea MISCELLANEOUS TID #300 strip 07/11/17 lorazepam 0.5 mg tablet 0.5 mg SL TID PRN #10 tab 02/20/18 aspirin 81 mg tablet,delayed 81 mg PO DAILY 04/17/18 release ondansetron HCl 4 mg PO Q8H PRN #14 tab 12/25/19 pen needle, diabetic 31 gauge x #300 ndl 12/31/1908/02 ferrous sulfate 325 mg (65 mg 325 mg PO Q OTHER DAY 02/24/20 iron) tablet insulin glargine 100 unit/mL (3 22 unit SC DAILY #60 ml 04/06/20 mL) subcutaneous pen omeprazole 20 mg capsule,delayed 20 mg PO DAILY PRN #90 tab-cap 04/06/20 release hydrochlorothiazide 12.5 mg tablet 12.5 mg PO DAILY #90 tab 07/27/20 metoprolol tartrate 25 mg tablet 25 mg PO BID #180 tab 07/27/20 metformin 500 mg tablet 1,000 mg PO BID #360 tab-cap 09/14/20 glimepiride 4 mg tablet 4 mg PO QAM #90 tab 09/22/20 liraglutide 0.6 mg/0.1 mL (18 mg/3 1.2 mg SUBCUT DAILY #6 syringe 09/22/20 mL) subcutaneous pen injector losartan 100 mg tablet 100 mg PO DAILY #90 tab 09/22/20 pravastatin 10 mg tablet 10 mg PO DAILY #90 tab-cap 09/22/20 vedolizumab 300 mg intravenous 300 mg IV [id number] ea 10/08/20 solution Current Visit Medications: Current Medications Generic Name Dose Route Start Last Admin Trade Name Freq PRN Reason Stop Dose Admin Acetaminophen 1,000 mg 10/12/20 06:00 Acetaminophen 500 Mg Tab PO Q4H PRN PRN Miscellaneous Medication 0 ml 10/12/20 06:00 Prednisolone 1%, Moxifloxacin 0.5%, Nepafenac 0.1% 5ml Btl OD DIRECTED BAKARI Miscellaneous Medication 0 ml 10/12/20 06:00 Tropicam./Phenyleph. (1/2.5%) 5 Ml Btl OD DIRECTED BAKARI Tetracaine HCl 0 ml 10/12/20 06:00 Tetracaine 0.5% 4 Ml Btl OD DIRECTED BAKARI PFSH Active Problems Active Problems: Problem Status Onset Code Chronic interstitial cystitis 02/05/13 N30.10 Portal hypertension K76.6 Splenomegaly R16.1 Iron deficiency anemia D50.9 Former cigarette smoker Z87.891 Thyroid nodule E04.1 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 I85.00 Crohn's disease K50.90 Nevus D22.9 Nuclear sclerotic cataract of right eye H25.11 Posterior subcapsular age-related cataract, right eye H25.041 Supraventricular tachycardia, paroxysmal 06/02/16 I47.1 Liver cirrhosis secondary to nonalcoholic steatohepatitis (SILVESTRE) ~03/2011 K75.81, K74.60 Diabetes mellitus type 2, controlled, without complications 06/07/12 E11.9 Essential hypertension 02/05/13 I10 Pulmonary nodule R91.1 Tubular adenoma 10/06/15 D36.9 Other and unspecified hyperlipidemia 06/07/12 E78.5 Lichen sclerosus et atrophicus 07/26/11 L90.0 Histoplasmosis retinitis 01/06/14 B39.9, H32 Guttate psoriasis 03/24/17 L40.4 Gastroesophageal reflux disease 04/12/11 K21.9 COPD (chronic obstructive pulmonary disease) 10/29/14 J44.9 Medical History Medical History (Updated 10/09/20 @ 08:25 by Mariano Meléndez) DERRELL (acute kidney injury) pt. denies Ascites Cholelithiasis COPD (chronic obstructive pulmonary disease) (10/29/14) 2011 spirometry FEV1 65%: mod obstructive Pt. 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) Dr Steinberg Iron deficiency anemia refractory to iron therapy Lichen sclerosus et atrophicus Lichen sclerosus et atrophicus (07/26/11) Liver cirrhosis secondary to nonalcoholic steatohepatitis (SILVESTRE) (~03/2011) Other and unspecified hyperlipidemia (06/07/12) PCEq risk 11% LDL baseline 87 Posterior vitreous detachment, both eyes (01/06/14) Dr Steinberg Premature menopause Pulmonary nodule Pyelonephritis, acute Senile incipient cataract of both eyes (01/06/14) Dr Steinberg SOB (shortness of breath) Supraventricular tachycardia, paroxysmal (06/02/16) Tubular adenoma (10/06/15) Vaginitis (10/31/12) Surgical History Surgical History Appendectomy 1991 Biopsy of breast R benign 1992 Colonoscopy (10/06/15) Dr Hunter, tubular adenoma, repeat 5 yrs [place] [place] [id number] [place] Tobacco Smoking/Tobacco Use Status: Former Tobacco Use Alcohol Alcohol Intake: never Substance Use Substance use: Never Substance use type: does not use Prental History History 3 Para 3 Hx # Term Pregnancies Multiple births Hx # Pregnancies Ectopic pregnancies AB induced Hx Number of Living Children AB spontaneous Vital Signs and Lab Results Lab Results Blood Type / Crossmatch: No Data to Display Complete Blood Count: No Data to Display Complete Metabolic Panel: No Data to Display Liver Function Panel: No Data to Display Coagulation Panel: No Data to Display Cardiac Panel: No Data to Display Arterial Blood Gas: No Data to Display Venous Blood Gas: No Data to Display Pancreas Panel: No Data to Display Thyroid Panel: No Data to Display Infectious Disease: No Data to Display Blood Cultures: No Data to Display Toxicology Panel: No Data to Display Anesthesia Assessment and Plan Anesthesia History Personal History: No History of Anesthesia Complications Family History: No Family History of Anesthesia Complications Exercise Tolerance Exercise Tolerance: Metabolic Equivalents>4 Pertinent Negatives Pertinent Negatives: No Symptoms of GERD Cardiac & Pulmonary Exam Cardiac Exam: Normal S1/S2 Heart Sounds Pulmonary Exam: Clear Bilateral Breath Sounds Airway Exam Known Difficult Airway: No Mallampati Class: 2 Mouth Opening: Normal (> 3cm) Thyromental Distance: Greater than 3 cm Neck Range of Motion: Full ROM Neck Circumference: Normal Teeth Condition: Normal Dentition ASA Classification ASA Score: ASA 2 Emergency Case?: No NPO Status NPO Status: NPO Clears >2 hours, Solids >8 hours Anesthesia Plan Resuscitation Status: Full Code Anesthesia Technique: MAC Anesthesia Airway Planned: Natural Airway Monitors Used: Standard Monitors
[2020-10-12 07:26] VITALS: BMI 24.3
[2020-10-12] MEDS: Tropicam./Phenyleph. (1/2.5%) 5 ML BTL OD ×3 (07:32→07:44)
--- NOTE | 2020-10-12 07:46 | W.ANESPOSTOP ---
Postoperative Evaluation Date, Time and Location Date Performed: 10/12/20 Time Performed: 08:41 Patient Location: Day Surgery Unit Vital Signs Most Recent Imported Vital Signs: Most Recent Vital Signs Temp Pulse Resp BP Pulse Ox 36.2 C L 78 16 96/55 L 99 10/12/20 07:23 10/12/20 07:23 10/12/20 07:23 10/12/20 07:23 10/12/20 07:23 Most Recent Manually Entered Vital Signs: Adult Blood Pressure: 117/52 Heart Rate: 76 Respirations: 16 Oxygen Saturation (%): 98 Temperature (C): 36 C Pain Score (0-10 Scale): 0 Pain Score Most Recent Pain Score: Most Recent Pain Score Pain Level 0 10/12/20 07:23 Assessment Mental Status: Awake (Alert & Oriented to Patient Baseline) Airway and Respiratory Function: Patent airway with normal (patient baseline) respiratory exam Cardiovascular Function: Hemodynamically Stable Hydration Status: Adequately Hydrated Nausea & Vomiting: No Nausea or Vomiting Pain: Pt. Denies Any Pain Peripheral Nerve Block: Other (Local by Dr. Fritz)
[2020-10-12] MEDS: Balanced Salt Soln.-PLUS 500 ML BAG (08:14)
[2020-10-12] MEDS: Povidone-Iodine Ophth 30 ML BTL (08:14)
[2020-10-12] MEDS: Lidocaine 2% Jelly 6 ML SYR (08:14)
[2020-10-12] MEDS: Lidocaine 1% Pres-Free 5 ML VIAL (08:15)
[2020-10-12] MEDS: Duovisc Viscoelastic System EACH 1 EACH (08:15)
[2020-10-12] MEDS: Tetracaine 0.5% 4 ML BTL OD (08:15)
[2020-10-12 08:39] VITALS: BP 117/52; PULSE 75; RESP 18; TEMP 36; O2SAT 99
--- NOTE | 2020-10-12 08:42 | W.PM.DSUDISC ---
Discharge Plan Disposition Patient Disposition: HOME Condition: Good Discharge Details Attending Provider: Chavo Fritz Primary Care Provider: Mara Pantoja Home Meds and New Rx's Prescriptions: No Action lorazepam 0.5 mg tablet 0.5 mg SL TID PRN (Reason: anxiety) Qty: 10 RF: 0 aspirin [Aspirin Low Dose] 81 mg tablet,delayed release (DR/EC) 81 mg PO DAILY RF: 0 Entyvio 300 mg recon soln 300 mg IV [id number] RF: 0 hydrochlorothiazide 12.5 mg tablet 12.5 mg PO DAILY Qty: 90 RF: 6 metoprolol tartrate 25 mg tablet 25 mg PO BID Qty: 180 RF: 6 (DME) lancets [OneTouch UltraSoft Lancets] 1 EACH misc 1 ea Miscellaneous DAILY RF: 0 ONETOUCH ULTRA TEST STRIPS 1 EACH strip 1 ea Miscellaneous TID Qty: 300 RF: 3 (DME) pen needle, diabetic [Pen Needle] 31 gauge x 5/16 needle 4 ea Miscellaneous DAILY Qty: 300 RF: 4 ferrous sulfate 325 mg (65 mg iron) tablet 325 mg PO Q OTHER DAY RF: 0 Basaglar KwikPen U-100 Insulin 100 unit/mL (3 mL) insulin pen 22 unit SC DAILY Qty: 60 RF: 3 omeprazole 20 mg capsule,delayed release(DR/EC) 20 mg PO DAILY PRN (Reason: gerd) Qty: 90 RF: 3 metformin 500 mg tablet 1,000 mg PO BID Qty: 360 RF: 3 glimepiride [Amaryl] 4 mg tablet 4 mg PO QAM Qty: 90 RF: 3 Victoza 3-Melquiades 0.6 mg/0.1 mL (18 mg/3 mL) pen injector 1.2 mg subcut DAILY Qty: 6 RF: 3 losartan 100 mg tablet 100 mg PO DAILY Qty: 90 RF: 3 pravastatin 10 mg tablet 10 mg PO DAILY Qty: 90 RF: 3 ondansetron HCl 4 mg tablet 4 mg PO Q8H PRN (Reason: nausea and vomiting) Qty: 14 RF: 0 Discharge Instructions Stand Alone Forms: Post-op Topical Cataract, Press Ganey (DSU) Discharge Orders Discharge Orders: Discharge Order (Routine); Ordered 10/12/20 Ordered By: Chavo J Catrina DS: Diagnosis Discharge Diagnosis (1) Nuclear sclerotic cataract of right eye: Status: Resolved (2) Posterior subcapsular age-related cataract, right eye: Status: Resolved
[2020-10-12 08:43] VITALS: BP 117/52; PULSE 76; RESP 16; TEMPC 36; O2SAT 98
--- NOTE | 2020-10-12 08:44 | ROE_ITS ---
Date of service: 10/12/20 Time of Service: 08:44 Operative Note Operative Note DATE OF PROCEDURE: 10/12/20 PRE-OP DIAGNOSIS: Nuclear/posterior subcapsular cataract, right eye POST-OP DIAGNOSIS: same PROCEDURE: Cataract extraction using phacoemulsification with intraocular lens implant, right eye SURGEON: Chavo Fritz ANESTHESIA TYPE: Local By Surgeon and MAC Refer to Anesthesia Record ESTIMATED BLOOD LOSS: 0 PATHOLOGY: none sent COMPLICATIONS: None Patient was transported to: same day Patient's condition: stable Implants: Tu & Tu/PEARL T[employer] [id number] Indications: Progressive visual loss due to cataract, right eye Procedure Description: CATARACT SURGERY OPERATIVE REPORT PREOPERATIVE DIAGNOSIS: 1. Nuclear/posterior subcapsular cataract, right eye POSTOPERATIVE DIAGNOSIS: Same OPERATION: 1. Cataract extraction using phacoemulsification with posterior chamber intraocular lens implant, right eye. IOL: IOL Machine Taper/Model: Tu & Tu / PEARL Tecnis [id number] IOL Power: + 12.5 diopters IOL Serial Number: [id number] Optic Diameter: 6.0mm Haptic/Overall Diameter: 13.0mm PHACO INFO: Jean FreshRealmurion Vision System with OZil and Active Fluidics Cumulative Dispersed Energy (CDE): 8.36 seconds SURGEON: Chavo Fritz MD, NEERAJ ANESTHESIA: Monitored Anesthesia Care (MAC), with local sub-tenon's anesthetic infiltration COMPLICATIONS: None SPECIMENS: None INDICATIONS FOR PROCEDURE: The patient is a 69-year-old lady with history of high myopia who has developed a symptomatic nuclear/posterior subcapsular cataract in the left eye. Visual acuity measures 20/80 corrected. The option of cataract surgery was offered to the patient and she felt she was symptomatic enough that she wished to proceed. PROCEDURE: The correct surgical eye was identified and marked as the right eye and the pupil was dilated in the preoperative area using mydriatics and cycloplegics. The dilated pupil size was 8.0 mm. Oral sedation was administered in the form of an Imprimis MKO Melt (midazolam 3mg/ketamine 25mg/ondansetron 2mg). The patient was brought to the operating room where cardiopulmonary monitoring was instituted and surgical time-out was performed, confirming the correct operative eye and IOL power. Topical anesthesia was administered and ophthalmic povidone-iodine 5% was instilled into the conjunctival fornices. Lidocaine gel was applied to the cornea and the tello-ocular area was prepped with Betadine 10% solution and draped in the usual sterile fashion for intraocular surgery, including an aperture drape. A Tegaderm transparent film dressing was cut in half and used to cover the lashes and lid margins. Care was taken to sequester the lashes and lid margins under the Tegaderm dressing. A lid speculum was placed between the lids of the operative eye and the Esther-Martinez operating microscope was maneuvered into position. Porfirio scissors were then used to make a conjunctival buttonhole approximately 6mm posterior to the limbus in the inferonasal quadrant. Blunt dissection was carried out to expose bare sclera, and a blunt-tipped sub-tenon?s anesthesia cannula was introduced and passed posteriorly along the globe where non- preserved plain lidocaine was injected into posterior sub-Tenon?s space. A sideport knife was used to make a paracentesis port inferotemporally. Intraocular phenylephrine/lidocaine was injected into the anterior chamber. The anterior chamber was filled with viscoelastic. Elisha scissors were used to make a small conjunctival peritomy in the superior temporal quadrant. A crescent blade was then used to make a groove about 1.5 mm posterior to the limbus and to fashion a scleral corneal tunnel extending approximately 1 mm into the corneal stroma. A 2.4 mm keratome knife was then used to enter the anterior chamber.. A flap was raised on the anterior capsule and capsulorhexis forceps were used to complete a continuous curvilinear capsulorhexis of 5.0 mm. Balanced salt solution was then used to perform cortical cleaving hydrodissection and nuclear hydrodelineation until the lens could be freely rotated within the capsular bag. The lens nucleus was then disassembled and removed within the capsular bag and iris plane using phacoemulsification. Residual cortical material was removed using the I/A handpiece. The posterior capsule was carefully polished to remove as much residual lens epithelial cells as safely possible. The capsular bag was then inflated and the anterior chamber deepened with viscoelastic. The lens implant described above was inserted into the capsular bag using the PEARL [place] Injector. A Kuglen hook was used to dial the IOL into position. Residual viscoelastic was then removed first from posterior to the IOL, then from the anterior chamber using the I/A handpiece. The lens implant was noted to center nicely within the capsular bag. The incisions were stromally hydrated, and the anterior chamber was reformed using BSS. Then 0.5cc of moxifloxacin 1.0mg/ml were injected into the capsular bag and anterior chamber. The incisions were checked with a Weck spear and found to be secure. Conjunctiva covered the scleral corneal tunnel excision nicely without need for sutures or coaptation cautery. Several drops of ophthalmic povidone-iodine 5% were then applied to the eye followed by two drops of Imprimis combination prednisolone/moxifloxacin/nepafenac solution. The drapes were removed and a c lear plastic protective eye shield was placed over the eye. The patient was then returned to Same Day Surgery in stable condition.
[2020-10-12 09:04] VITALS: BP 129/58; PULSE 76; RESP 16; TEMP 36.8; O2SAT 98
== END 2020-10-12 09:25 | disposition home or self-care (01) ==
PROVIDERS: PCP Internal Medicine; Visit Provider Ophthalmology
PROC: (CPT 66984; principal; 2020-10-12 08:30)
DX: H25.041 Posterior subcapsular polar age-related cataract, right eye (principal)
CPT/HCPCS: 66984; V2632

== ENCOUNTER 2020-10-26 08:12 | Day surgery (SDC) | payer MEDICARE, BC, SELFPAY ==
[2020-10-26 08:38] VITALS: BP 142/63; PULSE 78; RESP 16; TEMP 36.8; O2SAT 100
[2020-10-26] MEDS: Tropicam./Phenyleph. (1/2.5%) 5 ML BTL OS ×3 (08:38→08:54)
--- NOTE | 2020-10-26 09:05 | W.ANESPRE ---
General Info Date of Service Date Performed: 10/26/20 Height: 5 ft 5 in Weight: 65.8 kg Body Mass Index (BMI): 24.1 Surgical Procedure: Operation Date: 10/26/20 10:40 Proposed Procedures Side Surgeon p Cataract Extraction with IOL Implant Left Chavo Fritz MD Meds Allergies and Home Medications Allergies Allergy/AdvReac Type Severity Reaction Status Date / Time ciprofloxacin Allergy Intermediate Skin Rash Verified 10/26/20 08:36 lisinopril AdvReac Intermediate cough Verified 10/26/20 08:36 simvastatin AdvReac Intermediate fatigue Verified 10/26/20 08:36 codeine [Codeine] AdvReac nausea/vomi Verified 10/26/20 08:36 ting Home Medication Medication Instructions Recorded lancets [OneTouch UltraSoft ea 06/05/12 Lancets] CrowdSlinguch Ultra Test Strips 1 ea MISCELLANEOUS TID #300 strip 07/11/17 lorazepam 0.5 mg tablet 0.5 mg SL TID PRN #10 tab 02/20/18 aspirin 81 mg tablet,delayed 81 mg PO DAILY 04/17/18 release ondansetron HCl 4 mg PO Q8H PRN #14 tab 12/25/19 pen needle, diabetic 31 gauge x #300 ndl 12/31/1908/02 ferrous sulfate 325 mg (65 mg 325 mg PO Q OTHER DAY 02/24/20 iron) tablet insulin glargine 100 unit/mL (3 22 unit SC DAILY #60 ml 04/06/20 mL) subcutaneous pen omeprazole 20 mg capsule,delayed 20 mg PO DAILY PRN #90 tab-cap 04/06/20 release hydrochlorothiazide 12.5 mg tablet 12.5 mg PO DAILY #90 tab 07/27/20 metoprolol tartrate 25 mg tablet 25 mg PO BID #180 tab 07/27/20 metformin 500 mg tablet 1,000 mg PO BID #360 tab-cap 09/14/20 glimepiride 4 mg tablet 4 mg PO QAM #90 tab 09/22/20 liraglutide 0.6 mg/0.1 mL (18 mg/3 1.2 mg SUBCUT DAILY #6 syringe 09/22/20 mL) subcutaneous pen injector losartan 100 mg tablet 100 mg PO DAILY #90 tab 09/22/20 pravastatin 10 mg tablet 10 mg PO DAILY #90 tab-cap 09/22/20 vedolizumab 300 mg intravenous 300 mg IV [id number] ea 10/08/20 solution cimetidine [Tagamet] 200 mg PO PRN PRN 10/26/20 Current Visit Medications: Current Medications Generic Name Dose Route Start Last Admin Trade Name Freq PRN Reason Stop Dose Admin Acetaminophen 1,000 mg 10/26/20 06:00 Acetaminophen 500 Mg Tab PO Q4H PRN PRN Miscellaneous Medication 0 ml 10/26/20 06:00 Prednisolone 1%, Moxifloxacin 0.5%, Nepafenac 0.1% 5ml Btl OS DIRECTED BAKARI Miscellaneous Medication 0 ml 10/26/20 06:00 10/26/20 08:54 Tropicam./Phenyleph. 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 Crohn's disease K50.90 Nevus D22.9 Nuclear sclerotic cataract of right eye H25.11 Posterior subcapsular age-related cataract, right eye H25.041 Supraventricular tachycardia, paroxysmal 06/02/16 I47.1 Liver cirrhosis secondary to nonalcoholic steatohepatitis (SILVESTRE) ~03/2011 K75.81, K74.60 Diabetes mellitus type 2, controlled, without complications 06/07/12 E11.9 Essential hypertension 02/05/13 I10 Pulmonary nodule R91.1 Tubular adenoma 10/06/15 D36.9 Other and unspecified hyperlipidemia 06/07/12 E78.5 Lichen sclerosus et atrophicus 07/26/11 L90.0 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 denies Ascites Cholelithiasis COPD (chronic obstructive pulmonary disease) (10/29/14) 2011 spirometry FEV1 65%: mod obstructive Pt. 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) Dr Steinberg Iron deficiency anemia refractory to iron therapy Lichen sclerosus et atrophicus Lichen sclerosus et atrophicus (07/26/11) Liver cirrhosis secondary to nonalcoholic steatohepatitis (SILVESTRE) (~03/2011) Other and unspecified hyperlipidemia (06/07/12) PCEq risk 11% LDL baseline 87 Posterior vitreous detachment, both eyes (01/06/14) Dr Steinberg Premature menopause Pulmonary nodule Pyelonephritis, acute Senile incipient cataract of both eyes (01/06/14) Dr Steinberg SOB (shortness of breath) Supraventricular tachycardia, paroxysmal (06/02/16) Tubular adenoma (10/06/15) Vaginitis (10/31/12) Surgical History Surgical History Appendectomy 1991 Biopsy of breast R benign 1992 Colonoscopy (10/06/15) Dr Hunter, tubular adenoma, repeat 5 yrs Endoscopy Upper GI 04/06/18-[facility] [place] Upper GI [id number] Bensen Tobacco Smoking/Tobacco Use Status: Former Tobacco Use Alcohol Alcohol Intake: never Substance Use Substance use: Never Substance use type: does not use Prental History History 3 Para 3 Hx # Term Pregnancies Multiple births Hx # Pregnancies Ectopic pregnancies AB induced Hx Number of Living Children AB spontaneous Vital Signs and Lab Results Vital Signs Most Recent Vital Signs in EMR: Most Recent Vital Signs Temp Pulse Resp BP Pulse Ox 36.8 C 78 16 142/63 H 100 10/26/20 08:38 10/26/20 08:38 10/26/20 08:38 10/26/20 08:38 10/26/20 08:38 Point of Care Results Point of Care Results: Finger Stick Blood Glucose 128 10/26/20 08:31 Lab Results Blood Type / Crossmatch: No Data to Display Complete Blood Count: No Data to Display Complete Metabolic Panel: No Data to Display Liver Function Panel: No Data to Display Coagulation Panel: No Data to Display Cardiac Panel: No Data to Display Arterial Blood Gas: No Data to Display Venous Blood Gas: No Data to Display Pancreas Panel: No Data to Display Thyroid Panel: No Data to Display Infectious Disease: No Data to Display Blood Cultures: No Data to Display Toxicology Panel: No Data to Display Imaging and Studies Imaging and Studies Stress Test Summary: Impressions: Normal study after pharmacologic stress. Summary: 1. Myocardial perfusion imaging: No myocardial perfusion defects noted. 2. The calculated left ventricular ejection fraction after stress: 75%. LV global systolic function is normal. No left ventricular regional motion abnormality. Echocardiogram Summary: *STUDY CONCLUSIONS* Summary: 1. Left ventricle: The cavity size was normal. Wall thickness was increased in a pattern of mild LVH. Systolic function was hyperdynamic. The estimated ejection fraction was 65-70%. Findings consistent with diastolic dysfunction. Doppler parameters are consistent with high ventricular filling pressure. 2. Aortic valve: There was trivial regurgitation. 3. Mitral valve: There was mild to moderate regurgitation. 4. Left atrium: The atrium was mildly dilated. 5. Right ventricle: The cavity size was normal. Wall thickness was normal. Systolic function was normal. 6. Atrial septum: No defect or patent foramen ovale was identified. 7. Pulmonary arteries: Pulmonary systolic pressure was in the range of 30mm Hg to 40mm Hg. 8. Inferior vena cava: The vessel was patent and normal in size. The respirophasic diameter changes were in the normal range (greater than or equal to 50%), consistent with normal central venous pressure. Anesthesia Assessment and Plan Anesthesia History Personal History: No History of Anesthesia Complications Family History: No Family History of Anesthesia Complications Exercise Tolerance Exercise Tolerance: Metabolic Equivalents>4 Pertinent Negatives Pertinent Negatives: No Major Cardiovascular Symptoms or Complaints, No Major Pulmonary Symptoms or Complaints and No History of CVA/TIA Cardiac & Pulmonary Exam Cardiac Exam: Normal S1/S2 Heart Sounds Pulmonary Exam: Clear Bilateral Breath Sounds Airway Exam Known Difficult Airway: No Mallampati Class: 2 Mouth Opening: Normal (> 3cm) Thyromental Distance: Greater than 3 cm Neck Range of Motion: Full ROM Neck Circumference: Normal Teeth Condition: Normal Dentition ASA Classification ASA Score: ASA 2 Emergency Case?: No NPO Status NPO Status: NPO Clears >2 hours, Solids >8 hours Anesthesia Plan Resuscitation Status: Full Code Anesthesia Technique: MAC Anesthesia Airway Planned: Natural Airway Monitors Used: Standard Monitors
[2020-10-26 09:15] VITALS: BMI 24.1
[2020-10-26] MEDS: Tetracaine 0.5% 4 ML BTL OS (11:06)
[2020-10-26] MEDS: Balanced Salt Soln.-PLUS 500 ML BAG (11:07)
[2020-10-26] MEDS: Povidone-Iodine Ophth 30 ML BTL (11:09)
[2020-10-26] MEDS: Duovisc Viscoelastic System EACH 1 EACH (11:09)
[2020-10-26] MEDS: Lidocaine 1% Pres-Free 5 ML VIAL (11:09)
[2020-10-26] MEDS: Lidocaine 2% Jelly 6 ML SYR (11:09)
--- NOTE | 2020-10-26 11:10 | W.PM.DSUDISC ---
Discharge Plan Disposition Patient Disposition: HOME Condition: Good Discharge Details Reason For Visit: CATARACT Attending Provider: Chavo Fritz Primary Care Provider: Mara Pantoja Home Meds and New Rx's Prescriptions: No Action lorazepam 0.5 mg tablet 0.5 mg SL TID PRN (Reason: anxiety) Qty: 10 RF: 0 aspirin [Aspirin Low Dose] 81 mg tablet,delayed release (DR/EC) 81 mg PO DAILY RF: 0 Entyvio 300 mg recon soln 300 mg IV [id number] RF: 0 hydrochlorothiazide 12.5 mg tablet 12.5 mg PO DAILY Qty: 90 RF: 6 metoprolol tartrate 25 mg tablet 25 mg PO BID Qty: 180 RF: 6 (DME) lancets [OneTouch UltraSoft Lancets] 1 EACH misc 1 ea Miscellaneous DAILY RF: 0 ONETOUCH ULTRA TEST STRIPS 1 EACH strip 1 ea Miscellaneous TID Qty: 300 RF: 3 (DME) pen needle, diabetic [Pen Needle] 31 gauge x 5/16 needle 4 ea Miscellaneous DAILY Qty: 300 RF: 4 ferrous sulfate 325 mg (65 mg iron) tablet 325 mg PO Q OTHER DAY RF: 0 Basaglar KwikPen U-100 Insulin 100 unit/mL (3 mL) insulin pen 22 unit SC DAILY Qty: 60 RF: 3 omeprazole 20 mg capsule,delayed release(DR/EC) 20 mg PO DAILY PRN (Reason: gerd) Qty: 90 RF: 3 metformin 500 mg tablet 1,000 mg PO BID Qty: 360 RF: 3 glimepiride [Amaryl] 4 mg tablet 4 mg PO QAM Qty: 90 RF: 3 Victoza 3-Melquiades 0.6 mg/0.1 mL (18 mg/3 mL) pen injector 1.2 mg subcut DAILY Qty: 6 RF: 3 losartan 100 mg tablet 100 mg PO DAILY Qty: 90 RF: 3 pravastatin 10 mg tablet 10 mg PO DAILY Qty: 90 RF: 3 ondansetron HCl 4 mg tablet 4 mg PO Q8H PRN (Reason: nausea and vomiting) Qty: 14 RF: 0 cimetidine [Tagamet] 200 mg Tablet 200 mg PO PRN PRNRF: 0 Discharge Instructions Stand Alone Forms: Post-op Topical Cataract, Press Ganey (DSU) Discharge Orders Discharge Orders: Discharge Order (Routine); Ordered 10/26/20 Ordered By: Chavo Fritz DS: Diagnosis Discharge Diagnosis (1) Nuclear sclerotic cataract of left eye: Status: Resolved (2) Posterior subcapsular age-related cataract of left eye: Status: Resolved
--- NOTE | 2020-10-26 11:12 | ROE_ITS ---
Date of service: 10/26/20 Time of Service: 11:12 Operative Note Operative Note DATE OF PROCEDURE: 10/26/20 PRE-OP DIAGNOSIS: Nuclear/posterior subcapsular cataract, left eye POST-OP DIAGNOSIS: same PROCEDURE: Cataract extraction using phacoemulsification with intraocular lens implant, left eye SURGEON: Chavo Fritz ANESTHESIA TYPE: Local By Surgeon and MAC Refer to Anesthesia Record PATHOLOGY: none sent COMPLICATIONS: None Patient was transported to: same day Patient's condition: stable Implants: Tu and Tu / [employer] Tecnis [id number] Indications: Progressive decreased vision due to cataract, left eye, with poor red reflex Procedure Description: CATARACT SURGERY OPERATIVE REPORT PREOPERATIVE DIAGNOSIS: 1. Nuclear/posterior third cataract, left eye POSTOPERATIVE DIAGNOSIS: Same OPERATION: 1. Cataract extraction using phacoemulsification with posterior chamber intraocular lens implant, left eye. IOL: IOL Type Bar And Segment Assembler/Model: Tu [employer] Tu / PEARL Tecnis [id number] IOL Power: + 13.5 diopters IOL Serial Number: [id number] Optic Diameter: 6.0 mm Haptic/Overall Diameter: 13.0 mm PHACO INFO: Jean Tooblaurion Vision System with OZil and Active Fluidics Cumulative Dispersed Energy (CDE): 9.30 seconds SURGEON: Chavo Fritz MD, NEERAJ ANESTHESIA: Monitored A [facility] (MAC), with local sub-tenon's anesthetic infiltration COMPLICATIONS: None SPECIMENS: None INDICATIONS FOR PROCEDURE: The patient is a 69-year-old lady with history of high myopia who has developed symptomatic bilateral nuclear and posterior subcapsular cataract. She has already undergone cataract surgery in the right eye and is doing well postoperatively. She now presents for cataract surgery in the left eye. PROCEDURE: The correct surgical eye was identified and marked as the left eye and the pupil was dilated in the preoperative area using mydriatics and cycloplegics. The dilated pupil size was 7.0 mm. Oral sedation was administered in the form of an Imprimis MKO Melt (midazolam 3mg/ketamine 25mg/ondansetron 2mg). The patient was brought to the operating room where cardiopulmonary monitoring was instituted and surgical time-out was performed, confirming the correct operative eye and IOL power. Topical anesthesia was administered and ophthalmic povidone-iodine 5% was instilled into the conjunctival fornices. Lidocaine gel was applied to the cornea and the tello-ocular area was prepped with Betadine 10% solution and draped in the usual sterile fashion for intraocular surgery, including an aperture drape. A Tegaderm transparent film dressing was cut in half and used t o cover the lashes and lid margins. Care was taken to sequester the lashes and lid margins under the Tegaderm dressing. A lid speculum was placed between the lids of the operative eye and the Esther-Martinez operating microscope was maneuvered into position. Porfirio scissors were then used to make a conjunctival buttonhole approximately 6mm posterior to the limbus in the inferonasal quadrant. Blunt dissection was carried out to expose bare sclera, and a blunt-tipped sub-tenon?s anesthesia cannula was introduced and passed posteriorly along the globe where non- preserved plain lidocaine was injected into posterior sub-Tenon?s space. A sideport knife was used to make a paracentesis port superiorly/superiortemporally. Intraocular phenylephrine/lidocaine was injected int the anterior chamber.. Air was then injected into the anterior chamber, followed by Vision Blue, which was painted over the anterior capsule and then irrigated out using BSS. The anterior chamber was filled with viscoelastic. A 2.4mm keratome knife was used to create a half-thickness groove at the limbus and then to construct a three-plane near-clear corneal tunnel extending 2.0mm into clear cornea at the 3:00 position. A flap was raised on the anterior capsule and capsulorhexis forceps were used to complete a continuous curvilinear capsulorhexis of 5.5 mm. Balanced salt solution was then used to perform cortical cleaving hydrodissection and nuclear hydrodelineation until the lens could be freely rotated within the capsular bag. The lens nucleus was then disassembled and removed within the capsular bag and iris plane using phacoemulsification. Residual cortical material was removed using the 45-degree angled silicone I/A tip with 0.3mm port. The posterior capsule was carefully polished to remove as much residual lens epithelial cells as safely possible. The capsular bag was then inflated and the anterior chamber deepened with viscoelastic. The lens implant described above was inserted into the capsular bag using the PEARL North Powder Injector. A Kuglen hook was used to dial the IOL into position. Residual viscoelastic was then removed first from posterior to the IOL, then from the anterior chamber using the I/A handpiece. The lens implant was noted to center nicely within the capsular bag. The incisions were stromally hydrated, and the anterior chamber was reformed using BSS. Then 0.5cc of moxifloxacin 1.0mg/ml were injected into the capsular bag and anterior chamber. The incisions were checked with a Weck spear and found to be secure. Several drops of ophthalmic povidone-iodine 5% were then applied to the eye followed by two drops of Imprimis combination prednisolone/moxifloxacin/nepafenac solution. The drapes were removed and a clear plastic protective eye shield was placed o lucila the eye. The patient was then returned to Same Day Surgery in stable condition.
--- NOTE | 2020-10-26 11:13 | W.ANESPOSTOP ---
Postoperative Evaluation Date, Time and Location Date Performed: 10/26/20 Time Performed: 11:14 Patient Location: Day Surgery Unit Vital Signs Most Recent Imported Vital Signs: Most Recent Vital Signs Temp Pulse Resp BP Pulse Ox 36.8 C 78 16 142/63 H 100 10/26/20 08:38 10/26/20 08:38 10/26/20 08:38 10/26/20 08:38 10/26/20 08:38 Most Recent Manually Entered Vital Signs: Adult Blood Pressure: 131/66 Heart Rate: 74 Respirations: 16 Oxygen Saturation (%): 95 Temperature (C): 36.3 C Pain Score (0-10 Scale): 0 Pain Score Most Recent Pain Score: Most Recent Pain Score Pain Level 0 10/26/20 08:38 Assessment Mental Status: Awake (Alert & Oriented to Patient Baseline) Airway and Respiratory Function: Patent airway with normal (patient baseline) respiratory exam Cardiovascular Function: Hemodynamically Stable Hydration Status: Adequately Hydrated Nausea & Vomiting: No Nausea or Vomiting Pain: Pt. Denies Any Pain Peripheral Nerve Block: Other (Local by Dr. Fritz)
[2020-10-26 11:14] VITALS: BP 131/66; PULSE 74; RESP 16; TEMPC 36.3; O2SAT 95
[2020-10-26 11:20] VITALS: BP 131/66; PULSE 85; RESP 16; TEMP 36.3; O2SAT 95
[2020-10-26 11:39] VITALS: BP 134/63; PULSE 85; RESP 16; TEMP 36.3; O2SAT 97
== END 2020-10-26 11:42 | disposition home or self-care (01) ==
PROVIDERS: PCP Internal Medicine; Visit Provider Ophthalmology
PROC: (CPT 66984; principal; 2020-10-26 10:30)
DX: H25.042 Posterior subcapsular polar age-related cataract, left eye (principal)
CPT/HCPCS: 66984; V2632

== ENCOUNTER 2020-11-06 09:00 | Outpatient (RCR) | payer MEDICARE, BC, SELFPAY ==
[2020-11-06 09:54] LABS: HCT 25.5 % (36.0-46.0); MCH 19.9 pg (27.0-33.0); MCHC 27.1 % (32.0-36.0); MCV 73.5 fL (80-95); MPV 10.1 fL (8.0-11.0); Platelet Count 156 10^3/uL (130-400); RBC 3.47 10^6/uL (3.93-5.22); RDW 17.8 % (11.7-14.6); WBC 4.69 10^3/uL (4.4-10.8)
[2020-11-06 10:03] LABS: ALT 31 U/L (14-59); AST 22 U/L (15-37); Alkaline Phosphatase 58 U/L (46-116); Bilirubin, Direct 0.3 mg/dL (0.0-0.2); Bilirubin, Total 0.9 mg/dL (0.2-1.0); C-Reactive Protein 0.32 mg/dL (0.0-0.3); Total Protein 7.3 g/dL (6.4-8.2)
[2020-11-06] MEDS: Normal Saline Flush 10 ML SYR IVP (10:22)
[2020-11-06] MEDS: VEDOLIZUMAB 300 MG in Normal Saline 250 ML 500 MG IVPB (10:22)
[2020-11-06 11:42] LABS: HGB 6.9 g/dL (11.2-15.7)
== END 2020-11-17 23:59 | disposition home or self-care (01) ==
LOC: INF 09:00
PROVIDERS: PCP Internal Medicine; Visit Provider Internal Medicine
DX: K50.90 Crohn's disease, unspecified, without complications (principal)
CPT/HCPCS: 80076; 85027; 96365; 86140; J3380

== ENCOUNTER 2020-11-06 17:40 | Emergency (ER) | payer MEDICARE, BC, SELFPAY ==
[2020-11-06 17:49] VITALS: BP 163/53; PULSE 87; RESP 18; TEMP 36.5; O2SAT 100
[2020-11-06 17:53] VITALS: RESP 18
--- NOTE | 2020-11-06 17:56 | W.ED.GENAD ---
Discharge Plan Discharge Details Chief Complaint: GenMedical Primary Care Provider: Mara Pantoja ED Provider: Estefany Rodas Home Meds and New Rx's Prescriptions: No Action lorazepam 0.5 mg tablet 0.5 mg SL TID PRN (Reason: anxiety) Qty: 10 RF: 0 aspirin [Aspirin Low Dose] 81 mg tablet,delayed release (DR/EC) 81 mg PO DAILY RF: 0 Entyvio 300 mg recon soln 300 mg IV [id number] RF: 0 hydrochlorothiazide 12.5 mg tablet 12.5 mg PO DAILY Qty: 90 RF: 6 metoprolol tartrate 25 mg tablet 25 mg PO BID Qty: 180 RF: 6 (DME) lancets [OneTouch UltraSoft Lancets] 1 EACH misc 1 ea Miscellaneous DAILY RF: 0 ONETOUCH ULTRA TEST STRIPS 1 EACH strip 1 ea Miscellaneous TID Qty: 300 RF: 3 (DME) pen needle, diabetic [Pen Needle] 31 gauge x 5/16 needle 4 ea Miscellaneous DAILY Qty: 300 RF: 4 ferrous sulfate 325 mg (65 mg iron) tablet 325 mg PO Q OTHER DAY RF: 0 Basaglar KwikPen U-100 Insulin 100 unit/mL (3 mL) insulin pen 22 unit SC DAILY Qty: 60 RF: 3 omeprazole 20 mg capsule,delayed release(DR/EC) 20 mg PO DAILY PRN (Reason: gerd) Qty: 90 RF: 3 metformin 500 mg tablet 1,000 mg PO BID Qty: 360 RF: 3 glimepiride [Amaryl] 4 mg tablet 4 mg PO QAM Qty: 90 RF: 3 Victoza 3-Melquiades 0.6 mg/0.1 mL (18 mg/3 mL) pen injector 1.2 mg subcut DAILY Qty: 6 RF: 3 losartan 100 mg tablet 100 mg PO DAILY Qty: 90 RF: 3 pravastatin 10 mg tablet 10 mg PO DAILY Qty: 90 RF: 3 ondansetron HCl 4 mg tablet 4 mg PO Q8H PRN (Reason: nausea and vomiting) Qty: 14 RF: 0 cimetidine [Tagamet] 200 mg Tablet 200 mg PO PRN PRNRF: 0 HPI General Date/Time Provider Initiated Documentation: 11/06/20 17:55. Related Data Home Medications Medication Instructions Recorded Confirmed lancets [OneTouch UltraSoft ea 06/05/12 10/23/20 Lancets] Onetouch Ultra Test Strips 1 ea MISCELLANEOUS TID #300 strip 07/11/17 10/23/20 lorazepam 0.5 mg tablet 0.5 mg SL TID PRN #10 tab 02/20/18 10/23/20 aspirin 81 mg tablet,delayed 81 mg PO DAILY 04/17/18 10/26/20 release ondansetron HCl 4 mg PO Q8H PRN #14 tab 12/25/19 10/23/20 pen needle, diabetic 31 gauge x #300 ndl 12/31/19 10/23/2008/02 ferrous sulfate 325 mg (65 mg 325 mg PO Q OTHER DAY 02/24/20 10/26/20 iron) tablet insulin glargine 100 unit/mL (3 22 unit SC DAILY #60 ml 04/06/20 10/26/20 mL) subcutaneous pen omeprazole 20 mg capsule,delayed 20 mg PO DAILY PRN #90 tab-cap 04/06/20 10/26/20 release hydrochlorothiazide 12.5 mg tablet 12.5 mg PO DAILY #90 tab 07/27/20 10/26/20 metoprolol tartrate 25 mg tablet 25 mg PO BID #180 tab 07/27/20 10/26/20 metformin 500 mg tablet 1,000 mg PO BID #360 tab-cap 09/14/20 10/26/20 glimepiride 4 mg tablet 4 mg PO QAM #90 tab 09/22/20 10/26/20 liraglutide 0.6 mg/0.1 mL (18 mg/3 1.2 mg SUBCUT DAILY #6 syringe 09/22/20 10/26/20 mL) subcutaneous pen injector losartan 100 mg tablet 100 mg PO DAILY #90 tab 09/22/20 10/26/20 pravastatin 10 mg tablet 10 mg PO DAILY #90 tab-cap 09/22/20 10/26/20 vedolizumab 300 mg intravenous 300 mg IV [id number] ea 10/08/20 10/26/20 solution cimetidine [Tagamet] 200 mg PO PRN PRN 10/26/20 10/26/20 Previous Rx's Medication Instructions Recorded lorazepam 0.5 mg tablet 0.5 mg SL TID PRN #10 tab 02/20/18 ondansetron HCl 4 mg PO Q8H PRN #14 tab 12/25/19 pen needle, diabetic 31 gauge x #300 ndl 12/31/1908/02 insulin glargine 100 unit/mL (3 22 unit SC DAILY #60 ml 04/06/20 mL) subcutaneous pen omeprazole 20 mg capsule,delayed 20 mg PO DAILY PRN #90 tab-cap 04/06/20 release hydrochlorothiazide 12.5 mg tablet 12.5 mg PO DAILY #90 tab 07/27/20 metoprolol tartrate 25 mg tablet 25 mg PO BID #180 tab 07/27/20 metformin 500 mg tablet 1,000 mg PO BID #360 tab-cap 09/14/20 glimepiride 4 mg tablet 4 mg PO QAM #90 tab 09/22/20 liraglutide 0.6 mg/0.1 mL (18 mg/3 1.2 mg SUBCUT DAILY #6 syringe 09/22/20 mL) subcutaneous pen injector losartan 100 mg tablet 100 mg PO DAILY #90 tab 09/22/20 pravastatin 10 mg tablet 10 mg PO DAILY #90 tab-cap 09/22/20 Allergies Allergy/AdvReac Type Severity Reaction Status Date / Time ciprofloxacin Allergy Intermediate Skin Rash Verified 10/26/20 08:36 lisinopril AdvReac Intermediate cough Verified 10/26/20 08:36 simvastatin AdvReac Intermediate fatigue Verified 10/26/20 08:36 codeine [Codeine] AdvReac nausea/vomi Verified 10/26/20 08:36 ting General Stated Complaint: GenMedical ANDRES: 3 PFSH Medical History (Updated 10/26/20 @ 11:12 by Chavo Fritz MD) DERRELL (acute kidney injury) pt. denies Ascites Cholelithiasis COPD (chronic obstructive pulmonary disease) (10/29/14) 2011 spirometry FEV1 65%: mod obstructive Pt. 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) Dr Steinberg Iron deficiency anemia refractory to iron therapy Lichen sclerosus et atrophicus Lichen sclerosus et atrophicus (07/26/11) Liver cirrhosis secondary to nonalcoholic steatohepatitis (SILVESTRE) (~03/2011) Other and unspecified hyperlipidemia (06/07/12) PCEq risk 11% LDL baseline 87 Posterior vitreous detachment, both eyes (01/06/14) Dr Steinberg Premature menopause Pulmonary nodule Pyelonephritis, acute Senile incipient cataract of both eyes (01/06/14) Dr Steinberg SOB (shortness of breath) Supraventricular tachycardia, paroxysmal (06/02/16) Tubular adenoma (10/06/15) Vaginitis (10/31/12) Surgical History (Updated 10/26/20 @ 11:12 by Chavo Fritz MD) Appendectomy 1991 Biopsy of breast R benign 1992 Colonoscopy (10/06/15) Dr Hunter, tubular adenoma, repeat 5 yrs Endoscopy Upper GI 04/06/[facility] [place] Upper GI [id number] Bensen Family History Father Diabetes Sister Diabetes Breast cancer Other Heart disease Personal history of malignant neoplasm Social History Smoking/Tobacco Use Status: Former Tobacco Use Quit Date: 03/20/06 Smoking risk assessment performed?: Yes Alcohol Intake: never Drug use: Never Substance use type: does not use Household members: spouse Housing: house Number of Children: 3 number of grandchildren: 2 current occupation: rertired director from [employer] What is your relationship status?: How often do you talk on the phone with friends or family?: three or more times per week Panel score (0-1 are the most socially isolated patients): 2 What type of physical activity do you participate in: walking Duration: 15-30 minutes/day Frequency: 3-4 times per week Seatbelt use: always Drive intox or ride w/intox concrete truck driver: No Working smoke detector in home: Yes Fire extinguisher in home: Yes Carbon monox detector in home: Yes Do you feel safe at home: Yes Do you feel safe in your relationship?: Yes Female Reproductive History Menstrual Menopause type: natural History History 3 Para 3 Hx # Term Pregnancies Multiple births Hx # Pregnancies Ectopic pregnancies AB induced Hx Number of Living Children AB spontaneous Course Vital Signs Vital signs: Vital Signs Temperature 97.7 F 11/06/20 17:49 Pulse 87 11/06/20 17:49 Respiratory Rate 18 11/06/20 17:49 Blood Pressure 163/53 H 11/06/20 17:49 Pulse Oximetry 100 11/06/20 17:49 Temperature 97.7 F 11/06/20 17:49 Temperature Source Temporal Artery Scan 11/06/20 17:49 Pulse 87 11/06/20 17:49 Respiratory Rate 18 11/06/20 17:49 Respiratory Effort Non-Labored 11/06/20 17:52 Blood Pressure 163/53 H 11/06/20 17:49 Pulse Oximetry 100 11/06/20 17:49 Oxygen Delivery Method Room Air 11/06/20 17:49 Oxygen Flow Rate 0 11/06/20 17:49 Pain Level 0 11/06/20 17:49
--- NOTE | 2020-11-06 18:24 | W.ED.GENAD ---
Discharge Plan Disposition Patient Disposition: HOME Condition: Stable Discharge Details Clinical Impression: Anemia Primary Care Provider: Mara Pantoja ED Provider: Shwetha Fishman [place] Meds and New Rx's Prescriptions: Continued lorazepam 0.5 mg tablet 0.5 mg SL TID PRN (Reason: anxiety) Qty: 10 RF: 0 aspirin [Aspirin Low Dose] 81 mg tablet,delayed release (DR/EC) 81 mg PO DAILY RF: 0 Entyvio 300 mg recon soln 300 mg IV [id number] RF: 0 hydrochlorothiazide 12.5 mg tablet 12.5 mg PO DAILY Qty: 90 RF: 6 metoprolol tartrate 25 mg tablet 25 mg PO BID Qty: 180 RF: 6 (DME) lancets [OneTouch UltraSoft Lancets] 1 EACH misc 1 ea Miscellaneous DAILY RF: 0 ONETOUCH ULTRA TEST STRIPS 1 EACH strip 1 ea Miscellaneous TID Qty: 300 RF: 3 (DME) pen needle, diabetic [Pen Needle] 31 gauge x 5/16 needle 4 ea Miscellaneous DAILY Qty: 300 RF: 4 ferrous sulfate 325 mg (65 mg iron) tablet 325 mg PO Q OTHER DAY RF: 0 Basaglar KwikPen U-100 Insulin 100 unit/mL (3 mL) insulin pen 22 unit SC DAILY Qty: 60 RF: 3 omeprazole 20 mg capsule,delayed release(DR/EC) 20 mg PO DAILY PRN (Reason: gerd) Qty: 90 RF: 3 metformin 500 mg tablet 1,000 mg PO BID Qty: 360 RF: 3 glimepiride [Amaryl] 4 mg tablet 4 mg PO QAM Qty: 90 RF: 3 Victoza 3-Melquiades 0.6 mg/0.1 mL (18 mg/3 mL) pen injector 1.2 mg subcut DAILY Qty: 6 RF: 3 losartan 100 mg tablet 100 mg PO DAILY Qty: 90 RF: 3 pravastatin 10 mg tablet 10 mg PO DAILY Qty: 90 RF: 3 ondansetron HCl 4 mg tablet 4 mg PO Q8H PRN (Reason: nausea and vomiting) Qty: 14 RF: 0 cimetidine 200 mg Tablet 200 mg PO PRN PRNRF: 0 Discharge Instructions Instructions: Anemia (ED) Additional Instructions: He received 1 unit of packed red blood cells here. I would like you to have your CBC rechecked Monday or Monday. Please call your primary care Monday morning to discuss. If you develop chest pain, shortness of breath, increased weakness or other new/worsening symptoms please seek care urgently once again. Otherwise, please also keep your upcoming appointment with hematology. Referrals: Mara Pantoja MD [Primary Care Provider] - Discharge Data Discharge Date/Time-TO BE ENTERED AT DEPARTURE: 11/06/20 22:30 Medical Decision Making Patient is an 40-year-old female presented to complaint anemia. Patient had lab work ordered by hematology today and was found to have a hemoglobin of 6.9. They recommended presenting here for evaluation and transfusion. Patient reports that she had chronic anemia. Last recorded transfusion less than 2 years ago. States that she has had multiple endoscopies, colonoscopies and a significant work-up by hematology with no source of the anemia found. Per her report, they feel a slow bleed that is not able to be identified. States that she has sharif dx'ed with Crohns. She states that she has been feeling increasing fatigue for approximately 1 week. Denies any change in bowel habits. Has not noted any bleeding. Denies any easy bruising. On exam, patient appears nontoxic. She does appear pale. Her vital signs are stable. She has pale conjunctiva. Lungs are clear. Denies any shortness of breath or chest pain. Negative Hemoccult. We will repeat labs and plan to give 1 unit of blood. Labs reviewed. Patient white count is normal. Hemoglobin 6.3. Platelet count 137. Glucose is elevated at 230, CMP otherwise largely unremarkable. Patient was consented for blood products. She and I had a lengthy chat regarding risks/benefits. She voiced understanding and wishes to proceed. Patient received 1 unit of PRBCs. This should bring her to a within normal limits. She does not have any evidence to suggest active bleeding. She is been hemodynamically stable here. Is appropriate for discharge home at this time. Patient's is at bedside. They agree with this plan. I did advise that they call primary care on Monday to discuss repeat CBC as an outpatient on Monday or Monday. Return precautions were discussed. All of the questions and concerns were addressed and she is in agreement this plan. HPI General Mode of arrival: ambulatory. Date/Time Provider Initiated Documentation: 11/06/20 17:55. Limitations to Documentation: no limitations. Information obtained by: patient, RN notes reviewed and old records reviewed. History of Present Illness 70 year old F presents to the emergency department with the chief complaint of anemia, described as moderate and similar to prior episodes, Quality is described as other (fatigue), Patient started experiencing this week(s) (1) and it has been constant. No relieving factors improve symptom(s), No exacerbating factors reported . Patient notes weakness (generalized fatigue); denies chest pain, fever/chills, nausea/vomiting, rash and shortness of breath. Patient did receive the following treatments prior to arrival, none Related Data Home Medications Medication Instructions Recorded Confirmed lancets [OneTouch UltraSoft ea 06/05/12 10/23/20 Lancets] [employer] Ultra Test Strips 1 ea MISCELLANEOUS TID #300 strip 07/11/17 10/23/20 lorazepam 0.5 mg tablet 0.5 mg SL TID PRN #10 tab 02/20/18 10/23/20 aspirin 81 mg tablet,delayed 81 mg PO DAILY 04/17/18 10/26/20 release ondansetron HCl 4 mg PO Q8H PRN #14 tab 12/25/19 10/23/20 pen needle, diabetic 31 gauge x #300 ndl 12/31/19 10/23/2008/02 ferrous sulfate 325 mg (65 mg 325 mg PO Q OTHER DAY 02/24/20 10/26/20 iron) tablet insulin glargine 100 unit/mL (3 22 unit SC DAILY #60 ml 04/06/20 10/26/20 mL) subcutaneous pen omeprazole 20 mg capsule,delayed 20 mg PO DAILY PRN #90 tab-cap 04/06/20 10/26/20 release hydrochlorothiazide 12.5 mg tablet 12.5 mg PO DAILY #90 tab 07/27/20 10/26/20 metoprolol tartrate 25 mg tablet 25 mg PO BID #180 tab 07/27/20 10/26/20 metformin 500 mg tablet 1,000 mg PO BID #360 tab-cap 09/14/20 10/26/20 glimepiride 4 mg tablet 4 mg PO QAM #90 tab 09/22/20 10/26/20 liraglutide 0.6 mg/0.1 mL (18 mg/3 1.2 mg SUBCUT DAILY #6 syringe 09/22/20 10/26/20 mL) subcutaneous pen injector losartan 100 mg tablet 100 mg PO DAILY #90 tab 09/22/20 10/26/20 pravastatin 10 mg tablet 10 mg PO DAILY #90 tab-cap 09/22/20 10/26/20 vedolizumab 300 mg intravenous 300 mg IV [id number] ea 10/08/20 10/26/20 solution cimetidine 200 mg PO PRN PRN 10/26/20 10/26/20 Previous Rx's Medication Instructions Recorded lorazepam 0.5 mg tablet 0.5 mg SL TID PRN #10 tab 02/20/18 ondansetron HCl 4 mg PO Q8H PRN #14 tab 12/25/19 pen needle, diabetic 31 gauge x #300 ndl 12/31/1908/02 insulin glargine 100 unit/mL (3 22 unit SC DAILY #60 ml 04/06/20 mL) subcutaneous pen omeprazole 20 mg capsule,delayed 20 mg PO DAILY PRN #90 tab-cap 04/06/20 release hydrochlorothiazide 12.5 mg tablet 12.5 mg PO DAILY #90 tab 07/27/20 metoprolol tartrate 25 mg tablet 25 mg PO BID #180 tab 07/27/20 metformin 500 mg tablet 1,000 mg PO BID #360 tab-cap 09/14/20 glimepiride 4 mg tablet 4 mg PO QAM #90 tab 09/22/20 liraglutide 0.6 mg/0.1 mL (18 mg/3 1.2 mg SUBCUT DAILY #6 syringe 09/22/20 mL) subcutaneous pen injector losartan 100 mg tablet 100 mg PO DAILY #90 tab 09/22/20 pravastatin 10 mg tablet 10 mg PO DAILY #90 tab-cap 09/22/20 Allergies Allergy/AdvReac Type Severity Reaction Status Date / Time ciprofloxacin Allergy Intermediate Skin Rash Verified 10/26/20 08:36 lisinopril AdvReac Intermediate cough Verified 10/26/20 08:36 simvastatin AdvReac Intermediate fatigue Verified 10/26/20 08:36 codeine [Codeine] AdvReac nausea/vomi Verified 10/26/20 08:36 ting General Stated Complaint: GenMedical ANDRES: 3 Review of Systems Constitutional Constitutional: Reports as per HPI, Denies chills, Reports fatigue, Denies fever(s), Denies headache(s) and Reports lethargy ENT Ears, Nose, Mouth, and Throat: Denies headache(s) Cardiovascular Cardiovascular: Reports as per HPI, Denies chest pain and Denies dyspnea Respiratory Respiratory: Reports as per HPI, Denies cough and Denies dyspnea Neurologic Neurologic: Denies headache(s) Endocrine Endocrine: Reports fatigue [facility] Medical History (Updated 11/06/20 @ 22:00 by DANIELLE Schroeder) DERRELL (acute kidney injury) pt. denies Ascites Cholelithiasis COPD (chronic obstructive pulmonary disease) (10/29/14) 2011 spirometry FEV1 65%: mod obstructive Pt. 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) Dr Steinberg Iron deficiency anemia refractory to iron therapy Lichen sclerosus et atrophicus Lichen sclerosus et atrophicus (07/26/11) Liver cirrhosis secondary to nonalcoholic steatohepatitis (SILVESTRE) (~03/2011) Other and unspecified hyperlipidemia (06/07/12) PCEq risk 11% LDL baseline 87 Posterior vitreous detachment, both eyes (01/06/14) Dr Steinberg Premature menopause Pulmonary nodule Pyelonephritis, acute Senile incipient cataract of both eyes (01/06/14) Dr Steinberg SOB (shortness of breath) Supraventricular tachycardia, paroxysmal (06/02/16) Tubular adenoma (10/06/15) Vaginitis (10/31/12) Surgical History Appendectomy 1991 Biopsy of breast R benign 1992 Colonoscopy (10/06/15) Dr Hunter, tubular adenoma, repeat 5 yrs Endoscopy Upper GI 04/06/18-[facility] [place] Upper GI [id number] Family History Father Diabetes Sister Diabetes Breast cancer Other Heart disease Personal history of malignant neoplasm Social History Smoking/Tobacco Use Status: Former Tobacco Use Quit Date: 03/20/06 Smoking risk assessment performed?: Yes Alcohol Intake: never Drug use: Never Substance use type: does not use Household members: spouse Housing: house Number of Children: 3 number of grandchildren: 2 current occupation: rertired director from [employer] What is your relationship status?: How often do you talk on the phone with friends or family?: three or more times per week Panel score (0-1 are the most socially isolated patients): 2 What type of physical activity do you participate in: walking Duration: 15-30 minutes/day Frequency: 3-4 times per week Seatbelt use: always Drive intox or ride w/intox school bus driver/mechanic: No Working smoke detector in home: Yes Fire extinguisher in home: Yes Carbon monox detector in home: Yes Do you feel safe at home: Yes Do you feel safe in your relationship?: Yes Female Reproductive History Menstrual Menopause type: natural History History 3 Para 3 Hx # Term Pregnancies Multiple births Hx # Pregnancies Ectopic pregnancies AB induced Hx Number of Living Children AB spontaneous Exam Const General: cooperative, comfortable, no acute distress and ill appearing chronically (appears pale with pale conjunctiva) Nutritional Appearance: average body habitus and well nourished Orientation: alert and awake Resp Effort & Inspection: normal respiratory effort, able to speak in complete sentences and no respiratory distress Auscultation: clear to auscultation bilaterally Cardio Rate: regular rate Rhythm: regular rhythm Heart Sounds: S1 normal and S2 normal GI Inspection: normal to inspection Palpation: soft, no hepatosplenomegaly, not firm, no guarding, no pulsatile masses, not rigid and tender (left sided pain, reports to be chronic, associates with Crohns, no change) Percussion: normal to percussion Auscultation: normal bowel sounds Rectal Exam - female: visual inspection normal, normal sphincter tone and heme negative stool Skin General skin exam: pallor Neuro General: patient alert and patient awake Cognition: normal cognition Speech: speech normal Gait: normal gait Psych Appearance: grossly normal and well kempt Mental Status: mental status grossly normal Speech and Movement: speech and movement normal Course Vital Signs Vital signs: Vital Signs Temperature 36.5 C 11/06/20 17:49 Pulse 87 11/06/20 17:49 Respiratory Rate 18 11/06/20 17:49 Blood Pressure 163/53 H 11/06/20 17:49 Pulse Oximetry 100 11/06/20 17:49 Temperature 36.5 C 11/06/20 17:49 Temperature Source Temporal Artery Scan 11/06/20 17:49 Pulse 87 11/06/20 17:49 Respiratory Rate 18 11/06/20 17:53 Respiratory Effort Non-Labored 11/06/20 17:53 Respiratory Depth Normal 11/06/20 17:53 Respiratory Pattern Normal 11/06/20 17:53 Blood Pressure 163/53 H 11/06/20 17:49 Pulse Oximetry 100 11/06/20 17:49 Oxygen Delivery Method Room Air 11/06/20 17:49 Oxygen Flow Rate 0 11/06/20 17:49 Pain Level 0 11/06/20 17:49
[2020-11-06 19:01] LABS: Abs Immature Grans 0.02 10^3/uL (0.0-0.06); Absolute Basophil Count 0.02 10^3/uL (0.0-0.2); Absolute Eosinophil Count 0.07 10^3/uL (0.0-0.7); Absolute Lymphocyte Count 0.66 10^3/uL (1.2-3.4); Absolute Monocyte Count 0.31 10^3/uL (0.1-0.8); Absolute Neutrophil Count 3.48 10^3/uL (1.2-6.7); Basophils % 0.4; Eosinophils % 1.5; HCT 22.4 % (36.0-46.0); Immature Grans % 0.4; Lymphocytes % 14.5; MCH 20.1 pg (27.0-33.0); MCHC 28.1 % (32.0-36.0); MCV 71.3 fL (80-95); MPV 10.7 fL (8.0-11.0); Monocytes % 6.8; Neutrophils % 76.4; Nucleated RBC 0 %; Platelet Count 137 10^3/uL (130-400); RBC 3.14 10^6/uL (3.93-5.22); RDW 17.9 % (11.7-14.6); RDW-SD 45.4 fL; WBC 4.56 10^3/uL (4.4-10.8)
[2020-11-06 19:10] LABS: HGB 6.3 g/dL (11.2-15.7)
[2020-11-06 19:14] LABS: ALT 29 U/L (14-59); AST 19 U/L (15-37); Albumin 3.7 g/dL (3.4-5.0); Alkaline Phosphatase 57 U/L (46-116); Anion Gap 12.7 mmol/L (3-11); BUN 19 mg/dL (7-18); Bilirubin, Total 0.6 mg/dL (0.2-1.0); CO2 24.3 mmol/L (21.0-32.0); CREATININE 0.9 mg/dL (0.55-1.02); Calcium 8.8 mg/dL (8.5-10.1); Chloride 102 mmol/L (98-107); Glucose 230 mg/dL (74-106); Potassium 3.8 mmol/L (3.5-5.1); Sodium 139 mmol/L (136-145); Total Protein 6.8 g/dL (6.4-8.2)
[2020-11-06 19:25] LABS: Anisocytosis 1+; Diff Comment RBC Morph Reviewed
[2020-11-06 19:26] LABS: Hypochromasia 3+; Microcytosis 3+; Polychromasia Present
[2020-11-06 19:43] LABS: INR 1.1 (0.9-1.1); Prothrombin Time 10.7 sec (9.3-11.0)
[2020-11-06 19:55] VITALS: BP 174/50; PULSE 87; RESP 18; TEMP 36.5; O2SAT 98
[2020-11-06 20:01] VITALS: BP 156/53; PULSE 80; RESP 17; TEMP 36.6; O2SAT 98
[2020-11-06 20:15] VITALS: BP 141/45
[2020-11-06 20:54] LABS: PTT Activated 20.6 sec (21.0-27.5)
== END 2020-11-06 22:30 | disposition home or self-care (01) ==
PROVIDERS: Physician Assistant; Emergency Provider Physician Assistant; PCP Internal Medicine
DX: R53.83 Other fatigue (principal); D50.9 Iron deficiency anemia, unspecified; E11.65 Type 2 diabetes mellitus with hyperglycemia; Z79.4 Long term (current) use of insulin; K50.90 Crohn's disease, unspecified, without complications
CPT/HCPCS: 36415; 36430; 80053; 80076; 85027; 86850; 86900; 86901; 86920; 96365; 99285; 85025; 85610; 85730; 86140; 99283; J3380; P9016

== ENCOUNTER 2020-11-09 13:11 | Outpatient (CLI) | payer MEDICARE, BC, SELFPAY ==
[2020-11-09 13:35] LABS: Abs Immature Grans 0.01 10^3/uL (0.0-0.06); Absolute Basophil Count 0.01 10^3/uL (0.0-0.2); Absolute Eosinophil Count 0.06 10^3/uL (0.0-0.7); Absolute Lymphocyte Count 0.56 10^3/uL (1.2-3.4); Absolute Monocyte Count 0.35 10^3/uL (0.1-0.8); Absolute Neutrophil Count 2.31 10^3/uL (1.2-6.7); Basophils % 0.3; Eosinophils % 1.8; HGB 7.8 g/dL (11.2-15.7); Immature Grans % 0.3; MCH 21.2 pg (27.0-33.0); MCHC 27.9 % (32.0-36.0); MCV 76.1 fL (80-95); MPV 10.4 fL (8.0-11.0); Monocytes % 10.6; Nucleated RBC 0 %; RBC 3.68 10^6/uL (3.93-5.22); RDW 19.2 % (11.7-14.6); RDW-SD 52.8 fL
[2020-11-09 13:51] LABS: Anisocytosis 1+; Diff Comment RBC Morph Reviewed; Hypochromasia 3+; Microcytosis 3+; Platelet Count 125 10^3/uL (130-400)
[2020-11-09 13:52] LABS: Polychromasia Present
== END 2020-11-09 13:12 | disposition home or self-care (01) ==
LOC: LBO 13:12
PROVIDERS: PCP Internal Medicine; Visit Provider Nurse Practitioner
DX: D64.9 Anemia, unspecified (principal)
CPT/HCPCS: 36415; 85025

== ENCOUNTER 2020-12-09 01:01 | Outpatient (CLI) | payer MEDICARE, BC, SELFPAY ==
[2020-12-09 12:13] LABS: Abs Immature Grans 0.02 10^3/uL (0.0-0.06); Absolute Basophil Count 0.02 10^3/uL (0.0-0.2); Absolute Eosinophil Count 0.06 10^3/uL (0.0-0.7); Absolute Lymphocyte Count 0.58 10^3/uL (1.2-3.4); Absolute Monocyte Count 0.32 10^3/uL (0.1-0.8); Absolute Neutrophil Count 3.05 10^3/uL (1.2-6.7); Basophils % 0.5; Eosinophils % 1.5; HGB 7.1 g/dL (11.2-15.7); Immature Grans % 0.5; Lymphocytes % 14.3; MCH 21.5 pg (27.0-33.0); MCHC 28.4 % (32.0-36.0); MCV 75.5 fL (80-95); MPV 10.6 fL (8.0-11.0); Monocytes % 7.9; Neutrophils % 75.3; Nucleated RBC 0 %; Platelet Count 141 10^3/uL (130-400); RBC 3.31 10^6/uL (3.93-5.22); RDW 18.6 % (11.7-14.6); RDW-SD 50.4 fL; WBC 4.05 10^3/uL (4.4-10.8)
[2020-12-09 12:23] LABS: Anisocytosis 1+; Diff Comment RBC Morph Reviewed; Hypochromasia 2+; Microcytosis 2+
[2020-12-09 12:56] LABS: ALT 31 U/L (14-59); AST 23 U/L (15-37); Albumin 3.8 g/dL (3.4-5.0); Alkaline Phosphatase 65 U/L (46-116); Anion Gap 8.7 mmol/L (3-11); BUN 12 mg/dL (7-18); Bilirubin, Total 0.6 mg/dL (0.2-1.0); C-Reactive Protein 0.46 mg/dL (0.0-0.3); CO2 29.3 mmol/L (21.0-32.0); CREATININE 0.8 mg/dL (0.55-1.02); Calcium 8.9 mg/dL (8.5-10.1); Chloride 103 mmol/L (98-107); Glucose 218 mg/dL (74-106); Potassium 4.2 mmol/L (3.5-5.1); Sodium 141 mmol/L (136-145); Total Protein 6.7 g/dL (6.4-8.2)
== END 2020-12-09 01:02 | disposition home or self-care (01) ==
PROVIDERS: Hospitalist; PCP Internal Medicine; Visit Provider Internal Medicine Gastroenterology
DX: K50.80 Crohn's disease of both small and large intestine without complications (principal)
CPT/HCPCS: 36415; 80053; 85025; 86140

== ENCOUNTER 2020-12-16 03:43 | Outpatient (CLI) | payer MEDICARE, BC, SELFPAY ==
[2020-12-16 11:44] LABS: Abs Immature Grans 0.02 10^3/uL (0.0-0.06); Absolute Basophil Count 0.02 10^3/uL (0.0-0.2); Absolute Eosinophil Count 0.06 10^3/uL (0.0-0.7); Absolute Lymphocyte Count 0.57 10^3/uL (1.2-3.4); Basophils % 0.4; Eosinophils % 1.3; HCT 26.1 % (36.0-46.0); HGB 7.3 g/dL (11.2-15.7); Immature Grans % 0.4; Lymphocytes % 12.2; MCH 20.9 pg (27.0-33.0); MCV 74.6 fL (80-95); MPV 9.8 fL (8.0-11.0); Monocytes % 6.4; Neutrophils % 79.3; Nucleated RBC 0 %; Platelet Count 156 10^3/uL (130-400); RDW 18.3 % (11.7-14.6); RDW-SD 48.9 fL; WBC 4.67 10^3/uL (4.4-10.8)
[2020-12-16 12:04] LABS: Anisocytosis 1+; Diff Comment RBC Morph Reviewed; Hypochromasia 1+; Microcytosis 2+; Poikilocytes 1+; Polychromasia Present
[2020-12-16 12:53] LABS: ALT 34 U/L (14-59); AST 22 U/L (15-37); Albumin 3.9 g/dL (3.4-5.0); Alkaline Phosphatase 62 U/L (46-116); Anion Gap 9.8 mmol/L (3-11); BUN 11 mg/dL (7-18); Bilirubin, Total 0.8 mg/dL (0.2-1.0); C-Reactive Protein 0.39 mg/dL (0.0-0.3); CO2 29.2 mmol/L (21.0-32.0); CREATININE 0.7 mg/dL (0.55-1.02); Calcium 8.9 mg/dL (8.5-10.1); Chloride 101 mmol/L (98-107); Glucose 191 mg/dL (74-106); Sodium 140 mmol/L (136-145)
== END 2020-12-16 03:44 | disposition home or self-care (01) ==
LOC: LBO 03:43
PROVIDERS: PCP Internal Medicine; Visit Provider Internal Medicine Gastroenterology
DX: K50.80 Crohn's disease of both small and large intestine without complications (principal)
CPT/HCPCS: 36415; 80053; 85025; 86140

== ENCOUNTER 2021-01-01 00:57 | Outpatient (RCR) | payer MEDICARE, BC, SELFPAY ==
[2021-01-01] MEDS: Normal Saline Flush 10 ML SYR IVP (09:18)
[2021-01-01] MEDS: Acetaminophen 325 MG TAB 650 MG PO (09:18)
[2021-01-01] MEDS: Loratidine 10 MG TAB PO (09:18)
[2021-01-01] MEDS: VEDOLIZUMAB 300 MG in Normal Saline 250 ML 500 MG IVPB (09:48)
== END 2021-01-17 23:59 | disposition home or self-care (01) ==
LOC: INF 00:57
PROVIDERS: PCP Internal Medicine; Visit Provider Internal Medicine
DX: D50.9 Iron deficiency anemia, unspecified (principal)
CPT/HCPCS: 96365; J3380

== ENCOUNTER 2021-01-12 03:36 | Outpatient (CLI) | payer MEDICARE, BC, SELFPAY ==
[2021-01-12 12:19] LABS: Abs Immature Grans 0.02 10^3/uL (0.0-0.06); Absolute Basophil Count 0.02 10^3/uL (0.0-0.2); Absolute Eosinophil Count 0.05 10^3/uL (0.0-0.7); Absolute Lymphocyte Count 0.46 10^3/uL (1.2-3.4); Absolute Monocyte Count 0.31 10^3/uL (0.1-0.8); Absolute Neutrophil Count 2.65 10^3/uL (1.2-6.7); Basophils % 0.6; Eosinophils % 1.4; HCT 22.9 % (36.0-46.0); Immature Grans % 0.6; Lymphocytes % 13.1; MCH 20.5 pg (27.0-33.0); MCHC 27.5 % (32.0-36.0); MCV 74.4 fL (80-95); MPV 11.1 fL (8.0-11.0); Monocytes % 8.8; Neutrophils % 75.5; Nucleated RBC 0 %; Platelet Count 126 10^3/uL (130-400); RBC 3.08 10^6/uL (3.93-5.22); RDW 17.4 % (11.7-14.6); RDW-SD 47.1 fL; WBC 3.51 10^3/uL (4.4-10.8)
[2021-01-12 12:35] LABS: ALT 27 U/L (14-59); AST 18 U/L (15-37); Albumin 3.8 g/dL (3.4-5.0); Alkaline Phosphatase 52 U/L (46-116); Anion Gap 10.6 mmol/L (3-11); BUN 14 mg/dL (7-18); Bilirubin, Total 0.7 mg/dL (0.2-1.0); C-Reactive Protein 0.56 mg/dL (0.0-0.3); CO2 28.4 mmol/L (21.0-32.0); CREATININE 0.8 mg/dL (0.55-1.02); Calcium 8.8 mg/dL (8.5-10.1); Chloride 104 mmol/L (98-107); Glucose 160 mg/dL (74-106); Potassium 4.4 mmol/L (3.5-5.1); Sodium 143 mmol/L (136-145); Total Protein 6.6 g/dL (6.4-8.2)
[2021-01-12 12:39] LABS: Anisocytosis 1+; Diff Comment RBC Morph Reviewed; HGB 6.3 g/dL (11.2-15.7)
[2021-01-12 12:40] LABS: Hypochromasia 1+; Microcytosis 2+; Polychromasia Present
[2021-01-12 12:57] LABS: Vitamin B12 232 pg/mL (193-986)
== END 2021-01-12 03:37 | disposition home or self-care (01) ==
LOC: LBO 03:36
PROVIDERS: Internal Medicine Gastroenterology; PCP Internal Medicine; Visit Provider Internal Medicine
DX: D64.9 Anemia, unspecified (principal); K50.918 Crohn's disease, unspecified, with other complication
CPT/HCPCS: 36415; 80053; 82607; 85025; 86140

== ENCOUNTER 2021-01-12 16:11 | Emergency (ER) | payer MEDICARE, BC, SELFPAY ==
[2021-01-12] VITALS (15 sets, daily range): BP systolic 137–153; BP diastolic 48–87; PULSE 82–84; RESP 16–18; TEMP 36.2–36.7; O2SAT 97–99
--- NOTE | 2021-01-12 19:30 | ED.GENADUL_ITS ---
Discharge Plan Disposition Patient Disposition: HOME Condition: Stable Discharge Details Clinical Impression: Anemia Primary Care Provider: Mara Pantoja ED Provider: Theresa Espinal Home Meds and New Rx's Prescriptions: Continued lorazepam 0.5 mg tablet 0.5 mg SL TID PRN (Reason: anxiety) Qty: 10 RF: 0 aspirin [Aspirin Low Dose] 81 mg tablet,delayed release (DR/EC) 81 mg PO DAILY RF: 0 ondansetron HCl 4 mg tablet 4 mg PO Q8H PRN (Reason: nausea and vomiting) Qty: 14 RF: 0 (DME) pen needle, diabetic [Pen Needle] 31 gauge x 5/16 needle 4 ea Miscellaneous DAILY Qty: 300 RF: 4 hydrochlorothiazide 12.5 mg tablet 12.5 mg PO DAILY Qty: 90 RF: 6 metoprolol tartrate 25 mg tablet 25 mg PO BID Qty: 180 RF: 6 (DME) lancets [OneTouch UltraSoft Lancets] 1 EACH misc 1 ea Miscellaneous DAILY RF: 0 ONETOUCH ULTRA TEST STRIPS 1 EACH strip 1 ea Miscellaneous TID Qty: 300 RF: 3 ferrous sulfate 325 mg (65 mg iron) tablet 325 mg PO Q OTHER DAY RF: 0 Basaglar KwikPen U-100 Insulin 100 unit/mL (3 mL) insulin pen 22 unit SC DAILY Qty: 60 RF: 3 omeprazole 20 mg capsule,delayed release(DR/EC) 20 mg PO DAILY PRN (Reason: gerd) Qty: 90 RF: 3 metformin 500 mg tablet 1,000 mg PO BID Qty: 360 RF: 3 glimepiride [Amaryl] 4 mg tablet 4 mg PO QAM Qty: 90 RF: 3 Victoza 3-Melquiades 0.6 mg/0.1 mL (18 mg/3 mL) pen injector 1.2 mg subcut DAILY Qty: 6 RF: 3 losartan 100 mg tablet 100 mg PO DAILY Qty: 90 RF: 3 pravastatin 10 mg tablet 10 mg PO DAILY Qty: 90 RF: 3 Entyvio 300 mg recon soln 300 mg IV .q6 weeks RF: 0 cimetidine 200 mg Tablet 200 mg PO PRN PRNRF: 0 Discharge Instructions Instructions: Anemia (ED) Additional Instructions: Please follow-up at your schedule appointment You received 1 unit of blood You will need patient reassessment Please return earlier should you have New or worsening complaints Referrals: Mara Pantoja MD [Primary Care Provider] - Medical Decision Making Patient looks well, she is mildly pale but hemodynamically stable She received 1 unit of blood and has follow-up tomorrow as scheduled This is a chronic issue for patient I do not see any clear indication for additional intervention, reviewed GI records from [facility] and patient does have a colonoscopy scheduled tomorrow, she is not anticoagulated She has not had any additional transfusions since October when she received 1 unit of blood additionally She does not drink alcohol Again adamantly denies any blood in stool or vomitus Given the threshold to return with new or worsening complaints Tolerated infusion without Reviewed CBC from earlier today HPI General Mode of arrival: ambulatory . Date/Time Provider Initiated Documentation: 01/12/21 16:14 . Limitations to Documentation: no limitations . Information obtained by: patient . HPI Narrative: This 70-year-old female with history of splenomegaly, Posada, recurrent disease, esophageal varices, and anemia presents for transfusion. Has a history of recurrent anemia. Have a colonoscopy and endoscopy scheduled for 2 days from now. Event for her. It was sent here by [facility]. States she has had Gastroccult,and hemoccult all of which were negative Related Data Home Medications Medication Instructions Recorded Confirmed lancets [OneTouch UltraSoft ea 06/05/12 01/12/21 Lancets] [employer] Ultra Test Strips 1 ea MISCELLANEOUS TID #300 strip 07/11/17 01/12/21 lorazepam 0.5 mg tablet 0.5 mg SL TID PRN #10 tab 02/20/18 01/12/21 aspirin 81 mg tablet,delayed 81 mg PO DAILY 04/17/18 01/12/21 release ferrous sulfate 325 mg (65 mg 325 mg PO Q OTHER DAY 02/24/20 01/12/21 iron) tablet insulin glargine 100 unit/mL (3 22 unit SC DAILY #60 ml 04/06/20 01/12/21 mL) subcutaneous pen omeprazole 20 mg capsule,delayed 20 mg PO DAILY PRN #90 tab-cap 04/06/20 01/12/21 release hydrochlorothiazide 12.5 mg tablet 12.5 mg PO DAILY #90 tab 07/27/20 01/12/21 metoprolol tartrate 25 mg tablet 25 mg PO BID #180 tab 07/27/20 01/12/21 metformin 500 mg tablet 1,000 mg PO BID #360 tab-cap 09/14/20 01/12/21 glimepiride 4 mg tablet 4 mg PO QAM #90 tab 09/22/20 01/12/21 liraglutide 0.6 mg/0.1 mL (18 mg/3 1.2 mg SUBCUT DAILY #6 syringe 09/22/20 01/12/21 mL) subcutaneous pen injector losartan 100 mg tablet 100 mg PO DAILY #90 tab 09/22/20 01/12/21 pravastatin 10 mg tablet 10 mg PO DAILY #90 tab-cap 09/22/20 01/12/21 cimetidine 200 mg PO PRN PRN 10/26/20 01/12/21 ondansetron HCl 4 mg tablet 4 mg PO Q8H PRN #14 tab 12/22/20 01/12/21 pen needle, diabetic 31 gauge x #300 ndl 12/22/20 01/12/2108/02 vedolizumab 300 mg intravenous 300 mg IV .q6 weeks ea 01/04/21 01/12/21 solution Previous Rx's Medication Instructions Recorded lorazepam 0.5 mg tablet 0.5 mg SL TID PRN #10 tab 02/20/18 insulin glargine 100 unit/mL (3 22 unit SC DAILY #60 ml 04/06/20 mL) subcutaneous pen omeprazole 20 mg capsule,delayed 20 mg PO DAILY PRN #90 tab-cap 04/06/20 release hydrochlorothiazide 12.5 mg tablet 12.5 mg PO DAILY #90 tab 07/27/20 metoprolol tartrate 25 mg tablet 25 mg PO BID #180 tab 07/27/20 metformin 500 mg tablet 1,000 mg PO BID #360 tab-cap 09/14/20 glimepiride 4 mg tablet 4 mg PO QAM #90 tab 09/22/20 liraglutide 0.6 mg/0.1 mL (18 mg/3 1.2 mg SUBCUT DAILY #6 syringe 09/22/20 mL) subcutaneous pen injector losartan 100 mg tablet 100 mg PO DAILY #90 tab 09/22/20 pravastatin 10 mg tablet 10 mg PO DAILY #90 tab-cap 09/22/20 ondansetron HCl 4 mg tablet 4 mg PO Q8H PRN #14 tab 12/22/20 pen needle, diabetic 31 gauge x #300 ndl 12/22/2008/02 Allergies Allergy/AdvReac Type Severity Reaction Status Date / Time ciprofloxacin Allergy Intermediate Skin Rash Verified 01/12/21 16:27 lisinopril AdvReac Intermediate cough Verified 01/12/21 16:27 simvastatin AdvReac Intermediate fatigue Verified 01/12/21 16:27 codeine [Codeine] AdvReac nausea/vomi Verified 01/12/21 16:27 ting General Stated Complaint: GenMedical ANDRES: 2 Review of Systems All systems reviewed & are unremarkable except as noted in HPI and below PFSH Medical History (Updated 01/12/21 @ 20:59 by DANIELLE Ardon) DERRELL (acute kidney injury) pt. denies Ascites Cholelithiasis Chronic interstitial cystitis (02/05/13) Dx: Dr Ponce COPD (chronic obstructive pulmonary disease) (10/29/14) 2011 spirometry FEV1 65%: mod obstructive Pt. 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) Dr Steinberg Iron deficiency anemia refractory to iron therapy Lichen sclerosus et atrophicus Lichen sclerosus et atrophicus (07/26/11) Liver cirrhosis secondary to nonalcoholic steatohepatitis (POSADA) (~03/2011) Nevus Hammer Other and unspecified hyperlipidemia (06/07/12) PCEq risk 11% LDL baseline 87 Posterior vitreous detachment, both eyes (01/06/14) Dr Steinberg Premature menopause Pulmonary nodule Pyelonephritis, acute Senile incipient cataract of both eyes (01/06/14) Dr Steinberg SOB (shortness of breath) Supraventricular tachycardia, paroxysmal (06/02/16) Tubular adenoma (10/06/15) Vaginitis (10/31/12) Surgical History (Updated 12/22/20 @ 19:35 by Mara Pantoja MD) Appendectomy 1991 Biopsy of breast R benign 1992 Colonoscopy (10/06/15) Dr Hunter, tubular adenoma, repeat 5 yrs Endoscopy Upper GI 04/06/18[place] [place] Upper GI [id number] Nuclear sclerotic cataract of left eye Nuclear sclerotic cataract of right eye Posterior subcapsular age-related cataract of left eye Posterior subcapsular age-related cataract, right eye Family History Father Diabetes Sister Diabetes Breast cancer Other Heart disease Personal history of malignant neoplasm Social History Smoking/Tobacco Use Status: Former Tobacco Use Quit Date: 03/20/06 Smoking risk assessment performed?: Yes Alcohol Intake: never Drug use: Never Substance use type: does not use Household members: spouse Housing: house Number of Children: 3 number of grandchildren: 2 current occupation: rertired director from [employer] What is your relationship status?: How often do you talk on the phone with friends or family?: three or more times per week Panel score (0-1 are the most socially isolated patients): 2 What type of physical activity do you participate in: walking Duration: 15-30 minutes/day Frequency: 3-4 times per week Seatbelt use: always Drive intox or ride w/intox delivery truck driver heavy: No Working smoke detector in home: Yes Fire extinguisher in home: Yes Carbon monox detector in home: Yes Do you feel safe at home: Yes Do you feel safe in your relationship?: Yes Female Reproductive History Menstrual Menopause type: natural History History 3 Para 3 Hx # Term Pregnancies Multiple births Hx # Pregnancies Ectopic pregnancies AB induced Hx Number of Living Children AB spontaneous Exam Const General: cooperative, comfortable, no acute distress and frail appearing Resp Effort & Inspection: normal respiratory effort Cardio Rate: regular rate and not tachycardic Rhythm: regular rhythm GI Other: Nontender abdominal exam Skin Other: Pale Neuro General: patient alert and patient oriented x3 Course Vital Signs Vital signs: Vital Signs Temperature 36.4 C L 01/12/21 16:22 Pulse 83 01/12/21 16:22 Respiratory Rate 16 01/12/21 16:22 Blood Pressure 153/52 H 01/12/21 16:22 Pulse Oximetry 97 01/12/21 16:22 Temperature 36.7 C 01/12/21 19:14 Temperature Source Skin 01/12/21 16:22 Pulse 82 01/12/21 19:16 Respiratory Rate 18 01/12/21 19:14 Respiratory Effort 01/12/21 16:29 Blood Pressure 142/49 H 01/12/21 19:16 Blood Pressure Mean 69 01/12/21 19:16 Pulse Oximetry 99 01/12/21 19:20 Oxygen Delivery Method Room Air 01/12/21 19:14 Oxygen Flow Rate 0 01/12/21 19:14 Lab/Test Results Lab/Test Results: Laboratory Tests Range/Units 01/12/21 17:45 Patient ABO/Rh A Positive Antibody Screen NEGATIVE Crossmatch See Detail Critical Care Time Critical Care Time Critical Care Time: Yes Total Critical Care Time: 45 Attestation: transfusion for anemia, telemetry monitoring diagnostic blood work
== END 2021-01-12 21:10 | disposition home or self-care (01) ==
PROVIDERS: Emergency Provider Physician Assistant; PCP Internal Medicine
DX: D64.9 Anemia, unspecified (principal)
CPT/HCPCS: 36415; 36430; 80053; 86850; 86900; 86901; 86920; 99285; 82607; 85025; 86140; 99283; P9016

== ENCOUNTER 2021-01-26 01:11 | Outpatient (CLI) | payer MEDICARE, BC, SELFPAY ==
--- NOTE | 2021-01-26 07:00 | DI.US_ITS ---
Exam(s) US THYROID EXAM: US THYROID CLINICAL HISTORY: Assess stability,f/u to prev, multinodular goiter, e04.2. TECHNIQUE: Ultrasound thyroid performed using standard protocol. COMPARISON: US US THYROID from 01/31/2019 FINDINGS: ISTHMUS: 3.5 mm RIGHT LOBE: Size: 3.7 cc by 2.2 AP by 1.8 transverse cm Echogenicity: Normal. Vascularity: Normal. Nodules: There is again seen a mixed cystic and solid isoechoic lobulated nodule in the inferior aspe ct of the right lobe of the thyroid gland. It has smooth margins with no identifiable echogenic foci . It measures 2.5 x 2.1 x 2.1 cm. This compares to 2.3 x 1.7 x 1.5 cm. It is consistent with a TIR ADS level 3 nodule. Based on its size FNA is recommended. LEFT LOBE: Size: 3.9 cc by 1.5 AP by 1.4 transverse cm Echogenicity: Normal. Vascularity: Normal. Nodules: There is a stable solid hypoechoic nodule in the inferior pole of the left lobe. It measure s 1.1 x 0.9 x 0.9 cm. This compares to 1.2 x 0.8 x 0.9 cm on the prior examination. It is consisten t with a TIRADS level 4 nodule. Based on its size follow-up with ultrasound is recommended. OTHER FINDINGS: None. IMPRESSION: Multinodular thyroid gland as described above. DATA REPOSITORY:
== END 2021-01-26 01:31 ==
PROVIDERS: PCP Internal Medicine; Visit Provider Otolaryngology
DX: E04.2 Nontoxic multinodular goiter (principal)
CPT/HCPCS: 76536

== ENCOUNTER 2021-02-08 03:21 | Outpatient (CLI) | payer MEDICARE, BC, SELFPAY ==
[2021-02-08 11:04] LABS: Abs Immature Grans 0.02 10^3/uL (0.0-0.06); Absolute Basophil Count 0.01 10^3/uL (0.0-0.2); Absolute Eosinophil Count 0.06 10^3/uL (0.0-0.7); Absolute Lymphocyte Count 0.56 10^3/uL (1.2-3.4); Absolute Monocyte Count 0.23 10^3/uL (0.1-0.8); Absolute Neutrophil Count 3.03 10^3/uL (1.2-6.7); Basophils % 0.3; Eosinophils % 1.5; HCT 31.9 % (36.0-46.0); HGB 9.3 g/dL (11.2-15.7); Immature Grans % 0.5; Lymphocytes % 14.3; MCHC 29.2 % (32.0-36.0); MCV 82.2 fL (80-95); MPV 10.7 fL (8.0-11.0); Monocytes % 5.9; Neutrophils % 77.5; Nucleated RBC 0 %; Platelet Count 141 10^3/uL (130-400); RBC 3.88 10^6/uL (3.93-5.22); RDW 22.3 % (11.7-14.6); RDW-SD 66.9 fL; WBC 3.91 10^3/uL (4.4-10.8)
[2021-02-08 11:18] LABS: Anisocytosis 2+; Diff Comment RBC Morph Reviewed; Hypochromasia 1+
[2021-02-08 11:59] LABS: Iron 50 ug/dL (50-170)
[2021-02-08 12:10] LABS: ALT 36 U/L (14-59); AST 33 U/L (15-37); Albumin 3.9 g/dL (3.4-5.0); Alkaline Phosphatase 55 U/L (46-116); Anion Gap 10.5 mmol/L (3-11); BUN 14 mg/dL (7-18); Bilirubin, Total 0.7 mg/dL (0.2-1.0); C-Reactive Protein 0.36 mg/dL (0.0-0.3); CO2 26.5 mmol/L (21.0-32.0); CREATININE 0.7 mg/dL (0.55-1.02); Calcium 9.1 mg/dL (8.5-10.1); Chloride 101 mmol/L (98-107); Glucose 226 mg/dL (74-106); Potassium 4.2 mmol/L (3.5-5.1); Sodium 138 mmol/L (136-145); Total Protein 6.8 g/dL (6.4-8.2)
== END 2021-02-08 03:22 | disposition home or self-care (01) ==
LOC: LBO 03:21
PROVIDERS: PCP Internal Medicine; Visit Provider Nurse Practitioner Adult Health
DX: K50.80 Crohn's disease of both small and large intestine without complications; D50.0 Iron deficiency anemia secondary to blood loss (chronic)
CPT/HCPCS: 36415; 80053; 83540; 85025; 86140

== ENCOUNTER 2021-02-16 02:11 | Outpatient (RCR) | payer MEDICARE, BC, SELFPAY ==
[2021-01-21] MEDS: IRON SUCROSE COMPLEX 200 MG in Normal Saline 100 ML 440 MG IVPB (13:13)
[2021-01-21] MEDS: Normal Saline Flush 10 ML SYR IVP (13:15)
[2021-01-25] MEDS: Normal Saline Flush 10 ML SYR IVP (13:21)
[2021-01-25] MEDS: IRON SUCROSE COMPLEX 200 MG in Normal Saline 100 ML 440 MG IVPB (13:21)
[2021-01-29] MEDS: IRON SUCROSE COMPLEX 200 MG in Normal Saline 100 ML 440 MG IVPB (13:23)
[2021-01-29] MEDS: Normal Saline Flush 10 ML SYR IVP (13:23)
[2021-02-16] MEDS: Loratidine 10 MG TAB PO (08:58)
[2021-02-16] MEDS: Acetaminophen 325 MG TAB 650 MG PO (08:58)
[2021-02-16] MEDS: Normal Saline Flush 10 ML SYR IVP (08:59)
[2021-02-16] MEDS: VEDOLIZUMAB 300 MG in Normal Saline 250 ML 500 MG IVPB (09:36)
== END 2021-02-16 23:59 | disposition home or self-care (01) ==
LOC: INF 02:11
PROVIDERS: PCP Internal Medicine; Visit Provider Internal Medicine
DX: D50.9 Iron deficiency anemia, unspecified (principal)
CPT/HCPCS: 96365; J1756; J3380

== ENCOUNTER 2021-03-08 00:32 | Outpatient (CLI) | payer MEDICARE, BC, SELFPAY ==
--- NOTE | 2021-03-08 07:30 | DI.US_ITS ---
Exam(s) US NEEDLE LOCAL OTHER WO RAD EXAM: US NEEDLE LOCAL OTHER WO RAD CLINICAL HISTORY: Right thyroid nodule, increased size, T4,ULTRASOUND GUIDED BX,E04.2. COMPARISON: No exams were available for comparison TECHNIQUE: Ultrasound was provided for Dr. Dang for guidance with performing biopsy of a right thy roid nodule. FINDINGS: Please see procedure note for details. DATA REPOSITORY:
--- NOTE | 2021-03-08 10:40 | PAPNONF_PTH ---
PATIENT: Alayna Nix LOC: [facility] U#:[id number] AGE/SX: 70/F ROOM: RE03/08/[address]: Payam Dang MD : 1950 BED: DIS: 03/08/2021 SPEC #: [id number] RECD: 03/08/21 13:13 STATUS: NING REQ #: [id number] YVONNE: 03/08/21 10:[address]: Payam Dang DEPT: [facility] Cytology RECD BY: Theresa Gunn ENTERED: 03/08/21 13:14 SP TYPE: HENRIK FALCON DR: Mara Pantoja MD Tissues: 1 - BODY FLUID CYTO-FINE NEEDLE [facility] Procedures: BODY FLUID CYTO-FINE NEEDLE [facility]IRATE[facility] Comments: [id number]
--- NOTE | 2021-03-08 13:21 | W.PROCNOTE ---
Procedure Note Date of procedure: 03/08/21 Procedure: Ultrasound-guided FNA, right thyroid nodule Surgeon/Proceduralist/Physician: Payam Dang Procedure Diagnosis: Right thyroid nodule Procedure Indications: The patient has a right-sided thyroid nodule, with TI-RADS indication for FNA. Options were explained to the patient. She elected to undergo the above procedure. Consent was obtained prior to procedure. Procedure Description: The right-sided thyroid nodule was localized using ultrasound. The patient was then prepped and draped in appropriate fashion and 1% lidocaine with 1/100,000 epinephrine was injected into the skin and subcutaneous tissues overlying the nodule. Multiple passes were made into the thyroid nodule, and cellular adequacy was verified by pathology. Because of the her thyroid appearance, specimens were also taken for affirma. Following the procedure, after ensuring adequate hemostasis, a sterile dressing was applied. Vital signs remained stable. She was able to ambulate afterwards without difficulty. The patient will remove this dressing this evening and not replace it. She will call with any signs of infection. She will use ibuprofen or Tylenol for any discomfort. She will call my office if she does not hear from me within 1 week with regard to pathology. She had no further questions. She is comfortable with the plan.
== END 2021-03-08 00:52 ==
PROVIDERS: PCP Internal Medicine; Visit Provider Otolaryngology
DX: E04.2 Nontoxic multinodular goiter (principal)
CPT/HCPCS: 10005; 76942; 88104

== ENCOUNTER 2021-03-09 02:23 | Outpatient (CLI) | payer MEDICARE, BC, SELFPAY ==
[2021-03-09 12:37] LABS: Abs Immature Grans 0.08 10^3/uL (0.0-0.06); Absolute Basophil Count 0.03 10^3/uL (0.0-0.2); Absolute Eosinophil Count 0.06 10^3/uL (0.0-0.7); Absolute Monocyte Count 0.34 10^3/uL (0.1-0.8); Absolute Neutrophil Count 3.87 10^3/uL (1.2-6.7); Basophils % 0.6; Eosinophils % 1.2; HGB 9.6 g/dL (11.2-15.7); Immature Grans % 1.5; Lymphocytes % 15.4; MCH 23.6 pg (27.0-33.0); MCV 78.8 fL (80-95); MPV 9.8 fL (8.0-11.0); Monocytes % 6.6; Neutrophils % 74.7; Nucleated RBC 0 %; Platelet Count 179 10^3/uL (130-400); RBC 4.06 10^6/uL (3.93-5.22); RDW 17.2 % (11.7-14.6); RDW-SD 48.7 fL; WBC 5.18 10^3/uL (4.4-10.8)
[2021-03-09 14:42] LABS: ALT 40 U/L (14-59); AST 24 U/L (15-37); Alkaline Phosphatase 60 U/L (46-116); Anion Gap 9.6 mmol/L (3-11); BUN 20 mg/dL (7-18); Bilirubin, Total 0.4 mg/dL (0.2-1.0); C-Reactive Protein 0.46 mg/dL (0.0-0.3); CO2 26.4 mmol/L (21.0-32.0); CREATININE 0.7 mg/dL (0.55-1.02); Calcium 9.2 mg/dL (8.5-10.1); Chloride 103 mmol/L (98-107); Glucose 154 mg/dL (74-106); Potassium 4.4 mmol/L (3.5-5.1); Sodium 139 mmol/L (136-145); Total Protein 7.1 g/dL (6.4-8.2)
[2021-03-09 14:54] LABS: Iron 38 ug/dL (50-170)
== END 2021-03-09 02:24 | disposition home or self-care (01) ==
PROVIDERS: PCP Internal Medicine; Visit Provider Internal Medicine Gastroenterology
DX: D50.0 Iron deficiency anemia secondary to blood loss (chronic) (principal); K50.80 Crohn's disease of both small and large intestine without complications
CPT/HCPCS: 36415; 80053; 83540; 85025; 86140

== ENCOUNTER 2021-03-22 00:42 | Outpatient (CLI) | payer MEDICARE, BC, SELFPAY ==
--- NOTE | 2021-03-22 07:15 | DI.MAMMO_ITS ---
Exam(s) MAMMO SCREENING EXAM: MAMMO SCREENING CLINICAL HISTORY: screening,z12.39 TECHNIQUE: Mammograms were interpreted according to the usual protocol including computer analysis w [employer] CAD system, tomosynthesis and C-view imaging. COMPARISON: 2011 through 2019 FINDINGS: The breasts are composed of scattered fibroglandular densities, Breast Density category B. No suspicious masses or suspicious microcalcifications are seen. No skin thickening or abnormal axillary lymph nodes are seen. There has been no significant change from prior exams. IMPRESSION: BI-RADS Category 1, Negative mammogram Yearly screening mammography is recommended. Breast Density - Category B, scattered fibroglandular densities. A negative radiographic report should not delay biopsy if a dominant or clinically suspicious mass is present. Up to ten percent of cancers are not identified on mammography. A negative report may reinforce clinical impression. Adenosis and dense breasts may obscure an underlying neoplasm. False positive reports average 6 to 10%. Patient will receive a letter notifying them of these results.
== END 2021-03-22 01:02 ==
PROVIDERS: PCP Internal Medicine; Visit Provider Internal Medicine
DX: Z12.31 Encounter for screening mammogram for malignant neoplasm of breast (principal)
CPT/HCPCS: 77063; 77067

== ENCOUNTER 2021-04-06 01:19 | Outpatient (RCR) | payer MEDICARE, BC, SELFPAY ==
[2021-03-22] MEDS: Normal Saline Flush 10 ML SYR IVP (13:28)
[2021-03-22] MEDS: IRON SUCROSE COMPLEX 200 MG in Normal Saline 100 ML 440 MG IVPB (13:28)
[2021-03-26] MEDS: Normal Saline Flush 10 ML SYR IVP (11:57)
[2021-03-26] MEDS: IRON SUCROSE COMPLEX 200 MG in Normal Saline 100 ML 440 MG IVPB (11:57)
[2021-03-30] MEDS: Loratidine 10 MG TAB PO (09:16)
[2021-03-30] MEDS: Acetaminophen 325 MG TAB 650 MG PO (09:17)
[2021-03-30] MEDS: IRON SUCROSE COMPLEX 200 MG in Normal Saline 100 ML 440 MG IVPB (09:29)
[2021-03-30 09:44] LABS: Iron 52 ug/dL (50-170)
[2021-03-30] MEDS: VEDOLIZUMAB 300 MG in Normal Saline 250 ML 500 MG IVPB (09:50)
[2021-04-02] MEDS: Normal Saline Flush 10 ML SYR IVP (11:04)
[2021-04-02] MEDS: IRON SUCROSE COMPLEX 200 MG in Normal Saline 100 ML 325 MG IVPB (11:19)
[2021-04-03 11:28] LABS: Vedolizumab Ab <9.8 ng/mL (<9.8); Vedolizumab QN, S 12.4 mcg/mL
[2021-04-06] MEDS: Normal Saline Flush 10 ML SYR IVP (13:37)
[2021-04-06] MEDS: IRON SUCROSE COMPLEX 200 MG in Normal Saline 100 ML 440 MG IVPB (13:37)
== END 2021-04-19 23:59 | disposition home or self-care (01) ==
LOC: INF 01:19
PROVIDERS: PCP Internal Medicine; Visit Provider Internal Medicine
DX: K50.80 Crohn's disease of both small and large intestine without complications (principal); D50.0 Iron deficiency anemia secondary to blood loss (chronic)
CPT/HCPCS: 82397; 96365; 83540; J1756; J3380

== ENCOUNTER 2021-05-11 03:03 | Outpatient (RCR) | payer MEDICARE, BC, SELFPAY ==
[2021-05-11] MEDS: Acetaminophen 325 MG TAB 650 MG PO (09:03)
[2021-05-11] MEDS: Loratidine 10 MG TAB PO (09:03)
[2021-05-11] MEDS: Normal Saline Flush 10 ML SYR IVP (09:04)
[2021-05-11] MEDS: VEDOLIZUMAB 300 MG in Normal Saline 250 ML 500 MG IVPB (09:43)
[2021-05-11 10:07] LABS: Abs Immature Grans 0.03 10^3/uL (0.0-0.06); Absolute Basophil Count 0.02 10^3/uL (0.0-0.2); Absolute Lymphocyte Count 0.72 10^3/uL (1.2-3.4); Absolute Monocyte Count 0.42 10^3/uL (0.1-0.8); Absolute Neutrophil Count 4.97 10^3/uL (1.2-6.7); Basophils % 0.3; Eosinophils % 1.6; HCT 36.7 % (36.0-46.0); HGB 11.9 g/dL (11.2-15.7); Immature Grans % 0.5; Lymphocytes % 11.5; MCH 26.3 pg (27.0-33.0); MCHC 32.4 % (32.0-36.0); MPV 10.2 fL (8.0-11.0); Monocytes % 6.7; Neutrophils % 79.4; Nucleated RBC 0 %; Platelet Count 183 10^3/uL (130-400); RBC 4.53 10^6/uL (3.93-5.22); RDW 16.7 % (11.7-14.6); RDW-SD 49.1 fL; WBC 6.26 10^3/uL (4.4-10.8)
[2021-05-11 10:21] LABS: ALT 49 U/L (14-59); AST 28 U/L (15-37); Albumin 3.7 g/dL (3.4-5.0); Alkaline Phosphatase 67 U/L (46-116); Bilirubin, Direct 0.2 mg/dL (0.0-0.2); Bilirubin, Total 0.6 mg/dL (0.2-1.0); C-Reactive Protein 1.24 mg/dL (0.0-0.3); Total Protein 7.1 g/dL (6.4-8.2)
[2021-05-19 14:26] LABS: Vedolizumab Ab <9.8 ng/mL (<9.8)
== END 2021-05-17 23:59 | disposition home or self-care (01) ==
LOC: INF 03:03
PROVIDERS: Nurse Practitioner Adult Health; PCP Internal Medicine; Visit Provider Internal Medicine
DX: K50.90 Crohn's disease, unspecified, without complications (principal)
CPT/HCPCS: 36415; 80076; 82397; 96365; 85025; 86140; J3380

== ENCOUNTER 2021-06-08 01:47 | Outpatient (RCR) | payer MEDICARE, BC, SELFPAY ==
[2021-06-08] MEDS: Loratidine 10 MG TAB PO (09:16)
[2021-06-08] MEDS: Acetaminophen 325 MG TAB 650 MG PO (09:17)
[2021-06-08] MEDS: Normal Saline Flush 10 ML SYR IVP (09:18)
[2021-06-08] MEDS: VEDOLIZUMAB 300 MG in Normal Saline 250 ML 500 MG IVPB (09:40)
== END 2021-06-17 23:59 | disposition home or self-care (01) ==
LOC: INF 01:47
PROVIDERS: PCP Internal Medicine; Visit Provider Internal Medicine
DX: K50.90 Crohn's disease, unspecified, without complications (principal)
CPT/HCPCS: 96365; J3380

== ENCOUNTER 2021-06-10 03:27 | Outpatient (CLI) | payer MEDICARE, BC, SELFPAY ==
[2021-06-10 08:21] LABS: Abs Immature Grans 0.02 10^3/uL (0.0-0.06); Absolute Basophil Count 0.04 10^3/uL (0.0-0.2); Absolute Eosinophil Count 0.09 10^3/uL (0.0-0.7); Absolute Monocyte Count 0.35 10^3/uL (0.1-0.8); Absolute Neutrophil Count 3.82 10^3/uL (1.2-6.7); Basophils % 0.8; Eosinophils % 1.8; HCT 40.5 % (36.0-46.0); HGB 12.7 g/dL (11.2-15.7); Immature Grans % 0.4; Lymphocytes % 13.9; MCH 26.1 pg (27.0-33.0); MCHC 31.4 % (32.0-36.0); MCV 83.3 fL (80-95); MPV 10.1 fL (8.0-11.0); Neutrophils % 76.1; Nucleated RBC 0 %; Platelet Count 199 10^3/uL (130-400); RBC 4.86 10^6/uL (3.93-5.22); RDW-SD 45.7 fL; WBC 5.02 10^3/uL (4.4-10.8)
[2021-06-10 09:16] LABS: COMMENT (LAB VIEW ONLY) 178.45 mg/dL; Microalb ug/mg Crea 5.5 ug/mg Cr
[2021-06-10 11:22] LABS: Iron 55 ug/dL (50-170)
[2021-06-10 11:23] LABS: Calculated LDL 43 mg/dL (<100); Cholesterol 113 mg/dL (<200); HDL Cholesterol 34 mg/dL (40-60); Triglyceride 180 mg/dL (<150)
[2021-06-10 11:25] LABS: ALT 42 U/L (14-59); AST 27 U/L (15-37); Albumin 4.5 g/dL (3.4-5.0); Alkaline Phosphatase 78 U/L (46-116); Anion Gap 9.5 mmol/L (3-11); BUN 16 mg/dL (7-18); Bilirubin, Total 0.8 mg/dL (0.2-1.0); C-Reactive Protein 0.79 mg/dL (0.0-0.3); CO2 29.5 mmol/L (21.0-32.0); CREATININE 0.9 mg/dL (0.55-1.02); Calcium 9.7 mg/dL (8.5-10.1); Chloride 100 mmol/L (98-107); Glucose 104 mg/dL (74-106); Potassium 4.1 mmol/L (3.5-5.1); Sodium 139 mmol/L (136-145); Total Protein 7.9 g/dL (6.4-8.2)
[2021-06-11 09:32] LABS: HBs Antibody, Quant <3.1 mIU/mL (See Note); Hepatitis B Surface Ab Negative (See Note)
[2021-06-11 09:43] LABS: Hepatitis B Surface Ag Negative (Negative)
[2021-06-11 10:15] LABS: Hep A Antibody IgM Negative (Negative)
[2021-06-11 10:19] LABS: Hep B Core Antibody Negative (Negative)
[2021-06-15 15:32] LABS: Vedolizumab Ab <9.8 ng/mL (<9.8)
== END 2021-06-10 03:28 | disposition home or self-care (01) ==
PROVIDERS: PCP Internal Medicine; Visit Provider Internal Medicine
DX: E11.9 Type 2 diabetes mellitus without complications (principal); I10 Essential (primary) hypertension; Z79.4 Long term (current) use of insulin; D50.0 Iron deficiency anemia secondary to blood loss (chronic)
CPT/HCPCS: 36415; 80053; 80061; 82397; 86704; 86706; 86709; 87340; 82043; 82570; 83540; 85025; 86140

== ENCOUNTER 2021-06-21 02:43 | Outpatient (CLI) | payer MEDICARE, BC, SELFPAY ==
--- NOTE | 2021-06-21 07:45 | DI.CTLCSR_ITS ---
Exam(s) CT CHEST LUNG CANCER SCREEN EXAM: CT CHEST LUNG CANCER SCREEN CLINICAL HISTORY: Screening for lung cancer,former smoker, z87.891. TECHNIQUE: Imaging Protocol: Low Dose Technique CONTRAST MATERIAL: None COMPARISON: CT CT CHEST LUNG CANCER SCREEN from 06/19/2020 FINDINGS: CHEST: LUNGS: In the right lung there is an unchanged 2 millimeters subpleural nodule in the lateral aspect of the right upper lobe. There is also an unchanged 3-4 millimeter subpleural nodular density fine patcher iorly in the right upper lobe. In the posterior aspect of the right upper lobe there is also a very subtle ground-glass nodular infiltrate measuring approximately 7 x 7 millimeters, unchanged. There i s also an unchanged 2 millimeter nodular density associated with the lateral aspect of the superior m ajor fissure on the right side in the lateral segment of the right middle lobe there is also again no [place] a nodule measuring 5 x 3 millimeters, unchanged. Benign-appearing increased markings are again n oted in the medial basal segment of the right lower lobe.. Is no pleural effusion. In the opposite-right lung there is an unchanged 3 millimeter pleural base nodule posteriorly over th e left upper lobe.. There is a 2 millimeter nodule in the inferior lingular segment which is also un changed. Also a 3 millimeter pleural thickening in the anterior basal segment of the left lower lobe , also unchanged. No new left lung findings and no pleural effusion. There are no new significant f ocal findings in the trachea and mainstem bronchi. MEDIASTINUM: There is no obvious hilar nor mediastinal adenopathy. Prominent nodule in the right thy roid lobe is again noted. This occupies most of the right thyroid lobe. No obvious nodules in the l eft thyroid lobe. CARDIAC: Heart size is normal. There is no pericardial effusion.Caliber of thoracic aorta is upper n ormal. OTHER: Lowermost images reveal splenomegaly and somewhat cirrhotic appearing partially visualized sav er. No ascites evident. OSSEOUS: No significant osseous lesions.. IMPRESSION: 1. Stable appearance of the multiple small bilateral pulmonary findings, as described individually ab ove. There are no new nodules nor pleural effusions and there is no obvious new intrathoracic adenop athy. 2. Large right thyroid lobe nodule again noted. This occupies most of the right thyroid lobe. Recom mend further study with ultrasound if not already performed. 3. Splenomegaly and somewhat cirrhotic appearing liver noted.. Lung rads category 2S-benign appearance. Lung nodules with low likelihood of becoming active cancer. Thyroid findings as above. Lung-RADS 1.0 CATEGORIES: Category 0 - Prior chest CT exam(s) being located for comparison. Category 1 - Annual screening in 12 months. No nodules or definitely benign nodules. Category 2 - Annual screening in 12 months. Benign appearance. Nodules with low likelihood of becomin g active cancer. Category 3 - 6-month follow-up. Probably benign. Short-term follow-up suggested. Nodules with low lik elihood of becoming active cancer. Category 4A - 3-month follow-up and CT/PET if >8 mm in size. Suspicious finding. Findings which requi re additional testing. Category 4B - Findings which require additional testing and tissue sampling. Category 4X - Category 3 or 4 nodules with additional features or imaging findings that increases the suspicion of malignancy. Modifier S- Potentially clinically significant findings (non lung cancer) RADIATION DOSE DELIVERED: 74.49mGy.cm Total DLP 1.84mGy CTDIvol DATA REPOSITORY: All CT scans at this facility are submitted to the National Radiology Data Registry (NRDR) Dose Index Registry (DIR) with the [employer] ([employer]). RADIATION OPTIMIZATION: All CT scans at this facility use at least one of these dose optimization te chniques: automated exposure control; mA and/or kV adjustment per patient size (includes targeted exa ms where dose is matched to clinical indication); or iterative reconstruction.
== END 2021-06-21 03:03 ==
PROVIDERS: PCP Internal Medicine; Visit Provider Internal Medicine
DX: Z87.891 Personal history of nicotine dependence (principal); Z12.2 Encounter for screening for malignant neoplasm of respiratory organs; R91.8 Other nonspecific abnormal finding of lung field; R16.1 Splenomegaly, not elsewhere classified; E04.9 Nontoxic goiter, unspecified
CPT/HCPCS: 71271

== ENCOUNTER 2021-07-06 01:33 | Outpatient (CLI) | payer MEDICARE, BC, SELFPAY ==
[2021-07-06] MEDS: Loratidine 10 MG TAB PO (09:02)
[2021-07-06] MEDS: Acetaminophen 325 MG TAB 650 MG PO (09:02)
[2021-07-06] MEDS: Normal Saline Flush 10 ML SYR IVP (09:02)
[2021-07-06 09:32] LABS: HGB 12.2 g/dL (11.2-15.7); MCH 26.6 pg (27.0-33.0); MCHC 32.1 % (32.0-36.0); MPV 10.2 fL (8.0-11.0); Platelet Count 171 10^3/uL (130-400); RBC 4.58 10^6/uL (3.93-5.22); RDW 14.6 % (11.7-14.6); RDW-SD 43.7 fL; WBC 4.73 10^3/uL (4.4-10.8)
[2021-07-06] MEDS: VEDOLIZUMAB 300 MG in Normal Saline 250 ML 500 MG IVPB (10:06)
[2021-07-06 10:14] LABS: ALT 45 U/L (14-59); AST 24 U/L (15-37); Albumin 3.8 g/dL (3.4-5.0); Alkaline Phosphatase 70 U/L (46-116); Bilirubin, Direct 0.2 mg/dL (0.0-0.2); Bilirubin, Total 0.6 mg/dL (0.2-1.0); C-Reactive Protein 0.54 mg/dL (0.0-0.3); Total Protein 7.2 g/dL (6.4-8.2)
[2021-07-07 00:03] LABS: Iron 62 ug/dL (50-170)
== END 2021-07-06 01:34 | disposition home or self-care (01) ==
LOC: INF 01:34
PROVIDERS: Student in an Organized Health Care Education/Training Program; PCP Internal Medicine; Visit Provider Internal Medicine
DX: K50.90 Crohn's disease, unspecified, without complications (principal); D50.0 Iron deficiency anemia secondary to blood loss (chronic)
CPT/HCPCS: 36415; 80076; 85027; 96365; 83540; 86140; J3380

== ENCOUNTER → 2021-07-29 12:48 | Outpatient (BNVA) | payer MEDICARE, BC, SELFPAY | PROVIDERS: PCP Internal Medicine; Referring Provider Internal Medicine; Visit Provider Internal Medicine Cardiovascular Disease | DX: E11.9 Type 2 diabetes mellitus without complications (principal); E04.2 Nontoxic multinodular goiter; I10 Essential (primary) hypertension; I47.1 Supraventricular tachycardia; G45.8 Other transient cerebral ischemic attacks and related syndromes | CPT/HCPCS: 99214; 99213 ==

== ENCOUNTER 2021-08-04 02:09 | Outpatient (RCR) | payer MEDICARE, BC, SELFPAY ==
[2021-08-04] MEDS: Normal Saline Flush 10 ML SYR IVP (13:47)
[2021-08-04] MEDS: Loratidine 10 MG TAB PO (13:47)
[2021-08-04] MEDS: Acetaminophen 325 MG TAB 650 MG PO (13:47)
[2021-08-04] MEDS: VEDOLIZUMAB 300 MG in Normal Saline 250 ML 500 MG IVPB (13:58)
== END 2021-08-17 23:59 | disposition home or self-care (01) ==
LOC: INF 02:09
PROVIDERS: PCP Internal Medicine; Visit Provider Nurse Practitioner Acute Care
DX: K50.90 Crohn's disease, unspecified, without complications (principal)
CPT/HCPCS: 96365; J3380

== ENCOUNTER 2021-09-01 02:01 | Outpatient (RCR) | payer MEDICARE, BC, SELFPAY ==
[2021-09-01] MEDS: Loratidine 10 MG TAB PO (09:01)
[2021-09-01] MEDS: Acetaminophen 325 MG TAB 650 MG PO (09:01)
[2021-09-01] MEDS: Normal Saline Flush 10 ML SYR IVP (09:39)
[2021-09-01] MEDS: VEDOLIZUMAB 300 MG in Normal Saline 250 ML 500 MG IVPB (09:39)
[2021-09-01 09:44] LABS: Abs Immature Grans 0.04 10^3/uL (0.0-0.06); Absolute Basophil Count 0.01 10^3/uL (0.0-0.2); Absolute Eosinophil Count 0.04 10^3/uL (0.0-0.7); Absolute Lymphocyte Count 0.57 10^3/uL (1.2-3.4); Absolute Monocyte Count 0.24 10^3/uL (0.1-0.8); Absolute Neutrophil Count 2.61 10^3/uL (1.2-6.7); Basophils % 0.3; Eosinophils % 1.1; HCT 34.5 % (36.0-46.0); HGB 10.9 g/dL (11.2-15.7); Immature Grans % 1.1; Lymphocytes % 16.2; MCH 26.2 pg (27.0-33.0); MCHC 31.6 % (32.0-36.0); MCV 83 fL (80-95); MPV 9.8 fL (8.0-11.0); Monocytes % 6.8; Neutrophils % 74.5; Platelet Count 197 10^3/uL (130-400); RBC 4.16 10^6/uL (3.93-5.22); RDW 15.6 % (11.7-14.6); RDW-SD 46.4 fL; WBC 3.51 10^3/uL (4.4-10.8)
[2021-09-01 10:00] LABS: ALT 49 U/L (14-59); AST 33 U/L (15-37); Albumin 3.7 g/dL (3.4-5.0); Alkaline Phosphatase 84 U/L (46-116); Anion Gap 9.6 mmol/L (3-11); BUN 12 mg/dL (7-18); Bilirubin, Direct 0.2 mg/dL (0.0-0.2); Bilirubin, Total 0.7 mg/dL (0.2-1.0); C-Reactive Protein 1.06 mg/dL (0.0-0.3); CO2 26.4 mmol/L (21.0-32.0); CREATININE 0.9 mg/dL (0.55-1.02); Calcium 8.3 mg/dL (8.5-10.1); Chloride 100 mmol/L (98-107); Glucose 280 mg/dL (74-106); Sodium 136 mmol/L (136-145)
[2021-09-07 16:34] LABS: Vedolizumab Ab <9.8 ng/mL (<9.8); Vedolizumab QN, S 26.1 mcg/mL
== END 2021-09-16 23:59 | disposition home or self-care (01) ==
LOC: INF 02:01
PROVIDERS: PCP Internal Medicine; Visit Provider Nurse Practitioner Acute Care
DX: K50.012 Crohn's disease of small intestine with intestinal obstruction (principal)
CPT/HCPCS: 36415; 80053; 80076; 82397; 85027; 96365; 85025; 86140; J3380

== ENCOUNTER 2021-09-29 02:19 | Outpatient (RCR) | payer MEDICARE, BC, SELFPAY ==
[2021-09-29] MEDS: Normal Saline Flush 10 ML SYR IVP (09:10)
[2021-09-29] MEDS: Loratidine 10 MG TAB PO (09:10)
[2021-09-29] MEDS: Acetaminophen 325 MG TAB 650 MG PO (09:10)
[2021-09-29 09:28] LABS: Abs Immature Grans 0.02 10^3/uL (0.0-0.06); Absolute Basophil Count 0.04 10^3/uL (0.0-0.2); Absolute Eosinophil Count 0.06 10^3/uL (0.0-0.7); Absolute Lymphocyte Count 0.83 10^3/uL (1.2-3.4); Absolute Monocyte Count 0.33 10^3/uL (0.1-0.8); Absolute Neutrophil Count 4.25 10^3/uL (1.2-6.7); Basophils % 0.7; Eosinophils % 1.1; HCT 39.1 % (36.0-46.0); HGB 12.8 g/dL (11.2-15.7); Immature Grans % 0.4; MCH 26.6 pg (27.0-33.0); MCHC 32.7 % (32.0-36.0); MCV 81 fL (80-95); MPV 10.3 fL (8.0-11.0); Neutrophils % 76.8; Platelet Count 211 10^3/uL (130-400); RBC 4.81 10^6/uL (3.93-5.22); RDW 14.6 % (11.7-14.6); WBC 5.53 10^3/uL (4.4-10.8)
[2021-09-29] MEDS: VEDOLIZUMAB 300 MG in Normal Saline 250 ML 500 MG IVPB (09:32)
[2021-09-29 09:51] LABS: ALT 37 U/L (14-59); AST 21 U/L (15-37); Albumin 4.2 g/dL (3.4-5.0); Alkaline Phosphatase 65 U/L (46-116); Anion Gap 12.7 mmol/L (3-11); BUN 20 mg/dL (7-18); Bilirubin, Total 0.7 mg/dL (0.2-1.0); C-Reactive Protein 0.43 mg/dL (0.0-0.3); CO2 25.3 mmol/L (21.0-32.0); CREATININE 0.9 mg/dL (0.55-1.02); Calcium 9.5 mg/dL (8.5-10.1); Chloride 100 mmol/L (98-107); Glucose 252 mg/dL (74-106); Potassium 3.9 mmol/L (3.5-5.1); Sodium 138 mmol/L (136-145); TSH 3.88 uIU/mL (0.36-3.74); Total Protein 7.8 g/dL (6.4-8.2)
[2021-10-05 17:12] LABS: Vedolizumab Ab <9.8 ng/mL (<9.8); Vedolizumab QN, S 28.1 mcg/mL
== END 2021-10-17 23:59 | disposition home or self-care (01) ==
LOC: INF 02:19
PROVIDERS: Student in an Organized Health Care Education/Training Program; PCP Internal Medicine; Visit Provider Nurse Practitioner Acute Care
DX: E89.0 Postprocedural hypothyroidism (principal); K50.012 Crohn's disease of small intestine with intestinal obstruction
CPT/HCPCS: 36415; 80053; 82397; 96365; 84443; 85025; 86140; J3380

== ENCOUNTER 2021-10-27 02:40 | Outpatient (RCR) | payer MEDICARE, BC, SELFPAY ==
[2021-10-27] MEDS: Loratidine 10 MG TAB PO (09:23)
[2021-10-27] MEDS: Acetaminophen 325 MG TAB 650 MG PO (09:23)
[2021-10-27 09:32] LABS: HCT 36.9 % (36.0-46.0); HGB 11.9 g/dL (11.2-15.7); MCH 26.1 pg (27.0-33.0); MCHC 32.2 % (32.0-36.0); MCV 81 fL (80-95); MPV 10.4 fL (8.0-11.0); Platelet Count 147 10^3/uL (130-400); RBC 4.56 10^6/uL (3.93-5.22); RDW 14.8 % (11.7-14.6); RDW-SD 43.2 fL; WBC 4.85 10^3/uL (4.4-10.8)
[2021-10-27] MEDS: VEDOLIZUMAB 300 MG in Normal Saline 250 ML 500 MG IVPB (09:40)
[2021-10-27] MEDS: Normal Saline Flush 10 ML SYR IVP (09:40)
[2021-10-27 09:45] LABS: ALT 48 U/L (14-59); AST 28 U/L (15-37); Alkaline Phosphatase 74 U/L (46-116); Bilirubin, Direct 0.2 mg/dL (0.0-0.2); Bilirubin, Total 0.9 mg/dL (0.2-1.0); C-Reactive Protein 1.19 mg/dL (0.0-0.3); Total Protein 7.7 g/dL (6.4-8.2)
[2021-10-27 11:37] LABS: INR 1.1 (0.9-1.1)
[2021-10-29 09:10] LABS: AFP Tumor Marker <2.5 ng/mL (<8.1)
== END 2021-11-17 23:59 | disposition home or self-care (01) ==
LOC: INF 02:40
PROVIDERS: Student in an Organized Health Care Education/Training Program; PCP Internal Medicine; Visit Provider Nurse Practitioner Acute Care
DX: K50.90 Crohn's disease, unspecified, without complications (principal); D50.9 Iron deficiency anemia, unspecified; K74.69 Other cirrhosis of liver
CPT/HCPCS: 36415; 80076; 85027; 96365; 82105; 85610; 86140; J3380

== ENCOUNTER 2021-11-24 03:57 | Outpatient (RCR) | payer MEDICARE, BC, SELFPAY ==
[2021-11-24] MEDS: Acetaminophen 325 MG TAB 650 MG PO (09:14)
[2021-11-24] MEDS: Loratidine 10 MG TAB PO (09:15)
[2021-11-24] MEDS: Normal Saline Flush 10 ML SYR IVP (09:16)
[2021-11-24] MEDS: VEDOLIZUMAB 300 MG in Normal Saline 250 ML 500 MG IVPB (09:29)
[2021-11-24 09:51] LABS: ALT 62 U/L (14-59); AST 35 U/L (15-37); Albumin 3.7 g/dL (3.4-5.0); Alkaline Phosphatase 66 U/L (46-116); Anion Gap 9.3 mmol/L (3-11); BUN 14 mg/dL (7-18); Bilirubin, Total 0.7 mg/dL (0.2-1.0); CO2 26.7 mmol/L (21.0-32.0); CREATININE 0.9 mg/dL (0.55-1.02); Calcium 8.8 mg/dL (8.5-10.1); Chloride 100 mmol/L (98-107); Estimated GFR 68.77 (mL/min/1.73m2); Glucose 363 mg/dL (74-106); Potassium 4.5 mmol/L (3.5-5.1); Sodium 136 mmol/L (136-145); TSH 5.82 uIU/mL (0.36-3.74); Total Protein 7.1 g/dL (6.4-8.2)
== END 2021-12-17 23:59 | disposition home or self-care (01) ==
LOC: INF 03:57
PROVIDERS: PCP Internal Medicine; Visit Provider Nurse Practitioner Acute Care
DX: E03.9 Hypothyroidism, unspecified (principal); K50.90 Crohn's disease, unspecified, without complications
CPT/HCPCS: 36415; 80053; 96365; 84443; J3380

== ENCOUNTER 2021-12-21 01:47 | Outpatient (RCR) | payer MEDICARE, BC, SELFPAY ==
[2021-12-21] MEDS: Acetaminophen 325 MG TAB 650 MG PO (09:18)
[2021-12-21] MEDS: Loratidine 10 MG TAB PO (09:19)
[2021-12-21] MEDS: VEDOLIZUMAB 300 MG in Normal Saline 250 ML 500 MG IVPB (09:27)
[2021-12-21 09:35] LABS: HCT 34.6 % (36.0-46.0); MCH 25.8 pg (27.0-33.0); MCHC 31.8 % (32.0-36.0); MCV 81 fL (80-95); MPV 10.2 fL (8.0-11.0); Platelet Count 156 10^3/uL (130-400); RBC 4.27 10^6/uL (3.93-5.22); RDW 14.6 % (11.7-14.6); RDW-SD 42.1 fL; WBC 4.36 10^3/uL (4.4-10.8)
[2021-12-21 09:49] LABS: ALT 37 U/L (14-59); AST 21 U/L (15-37); Albumin 3.8 g/dL (3.4-5.0); Alkaline Phosphatase 60 U/L (46-116); Bilirubin, Direct 0.2 mg/dL (0.0-0.2); Bilirubin, Total 0.6 mg/dL (0.2-1.0); C-Reactive Protein 0.63 mg/dL (0.0-0.3); Total Protein 7.1 g/dL (6.4-8.2)
== END 2022-01-17 23:59 | disposition home or self-care (01) ==
LOC: INF 01:47
PROVIDERS: Student in an Organized Health Care Education/Training Program; PCP Internal Medicine; Visit Provider Nurse Practitioner Acute Care
DX: K50.90 Crohn's disease, unspecified, without complications (principal)
CPT/HCPCS: 36415; 80076; 85027; 96365; 86140; J3380

== ENCOUNTER 2021-12-21 15:46 | Outpatient (REF) | payer MEDICARE, BC, SELFPAY ==
[2021-12-21 18:50] LABS: ESR 12 mm/hr (0-30)
[2021-12-21 19:03] LABS: Uric Acid 6.5 mg/dL (2.6-6.0)
[2021-12-23 10:15] LABS: Lyme Ab w Rflx to Lyme Confirm Negative (Negative)
[2021-12-25 19:59] LABS: Anaplasma phagocytophilum Negative (Negative); B. miyamotoi PCR Negative (Negative); Babesia divergens/MO-1 Negative (Negative); Babesia duncani Negative (Negative); Babesia microti Negative (Negative); Ehrlichia chaffeensis Negative (Negative); Ehrlichia ewingii/canis Negative (Negative); Ehrlichia muris eauclairensis Negative (Negative)
== END 2021-12-21 15:47 | disposition home or self-care (01) ==
LOC: LBN 15:46
PROVIDERS: PCP Internal Medicine; Visit Provider Nurse Practitioner
DX: M25.531 Pain in right wrist (principal); M79.641 Pain in right hand; M79.89 Other specified soft tissue disorders; M85.841 Other specified disorders of bone density and structure, right hand
CPT/HCPCS: 85652; 87798; 84550; 86618

== ENCOUNTER → 2021-12-21 15:54 | Outpatient (CLI) | payer MEDICARE, BC, SELFPAY ==
--- NOTE | 2021-12-21 15:15 | DI.RAD_ITS ---
Exam(s) XR WRIST RT COMPLETE EXAM: XR WRIST RT COMPLETE CLINICAL HISTORY: right wrist pain, M25.531. TECHNIQUE: 2D digital imaging was performed. COMPARISON: No exams were available for comparison FINDINGS: 3 views No evidence of fracture or dislocation. No significant ulnar variance. Scaphoid and scapholunate di stance normal. No osseous lesions nor erosions. No degenerative changes. IMPRESSION: No significant findings. DATA REPOSITORY: RADIATION DOSE DELIVERED:
--- NOTE | 2021-12-21 15:15 | DI.RAD_ITS ---
Exam(s) XR HAND RT COMPLETE EXAM: XR HAND RT COMPLETE CLINICAL HISTORY: right hand pain, M79.641. TECHNIQUE: 2D digital imaging was performed. COMPARISON: No exams were available for comparison FINDINGS: 3 views No evidence of fracture or dislocation. No osseous lesions nor erosions. There are significant dege nerative changes in the DIP joint of the 5th finger. There is a 1 millimeter calcific density seen o ff the medial aspect of the DIP joint of the 2nd-index finger. No erosion at this level. No signifi cant findings at the 1st carpometacarpal joint. 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 DATA REPOSITORY: RADIATION DOSE DELIVERED:
== END ==
PROVIDERS: PCP Internal Medicine; Visit Provider Nurse Practitioner
DX: M25.531 Pain in right wrist (principal); M19.041 Primary osteoarthritis, right hand
CPT/HCPCS: 36415; 80076; 85027; 96365; 73110; 73130; 86140; J3380

== ENCOUNTER 2022-01-20 02:44 | Outpatient (RCR) | payer MEDICARE, BC, SELFPAY ==
[2022-01-20] MEDS: Loratidine 10 MG TAB PO (11:05)
[2022-01-20] MEDS: Normal Saline Flush 10 ML SYR IVP (11:05)
[2022-01-20] MEDS: Acetaminophen 325 MG TAB 650 MG PO (11:05)
[2022-01-20] MEDS: VEDOLIZUMAB 300 MG in Normal Saline 250 ML 500 MG IVPB (11:32)
== END 2022-02-16 23:59 | disposition home or self-care (01) ==
LOC: INF 02:44
PROVIDERS: PCP Internal Medicine; Visit Provider Nurse Practitioner Acute Care
DX: K50.90 Crohn's disease, unspecified, without complications (principal)
CPT/HCPCS: 96365; J3380

== ENCOUNTER 2022-02-23 03:14 | Outpatient (RCR) | payer MEDICARE, BC, SELFPAY ==
[2022-02-23] MEDS: Acetaminophen 325 MG TAB 650 MG PO (08:17)
[2022-02-23] MEDS: Loratidine 10 MG TAB PO (08:17)
[2022-02-23] MEDS: VEDOLIZUMAB 300 MG in Normal Saline 250 ML 500 MG IVPB (08:26)
[2022-02-23] MEDS: Normal Saline Flush 10 ML SYR IVP (08:26)
[2022-02-23 08:47] LABS: HCT 33.8 % (36.0-46.0); HGB 10.5 g/dL (11.2-15.7); MCH 24.4 pg (27.0-33.0); MCHC 31.1 % (32.0-36.0); MCV 78 fL (80-95); MPV 9.3 fL (8.0-11.0); Platelet Count 244 10^3/uL (130-400); RBC 4.31 10^6/uL (3.93-5.22); RDW 15.7 % (11.7-14.6); WBC 4.36 10^3/uL (4.4-10.8)
[2022-02-23 09:09] LABS: ALT 30 U/L (14-59); AST 29 U/L (15-37); Albumin 3.9 g/dL (3.4-5.0); Alkaline Phosphatase 72 U/L (46-116); Bilirubin, Direct 0.2 mg/dL (0.0-0.2); Bilirubin, Total 0.7 mg/dL (0.2-1.0); C-Reactive Protein 0.74 mg/dL (0.0-0.3); Total Protein 7.4 g/dL (6.4-8.2)
== END 2022-03-19 23:59 | disposition home or self-care (01) ==
LOC: INF 03:14
PROVIDERS: PCP Internal Medicine; Visit Provider Nurse Practitioner Acute Care
DX: K50.90 Crohn's disease, unspecified, without complications (principal)
CPT/HCPCS: 36415; 80076; 85027; 96365; 86140; J3380

== ENCOUNTER 2022-03-23 04:24 | Outpatient (RCR) | payer MEDICARE, BC, SELFPAY ==
[2022-03-23] MEDS: Loratidine 10 MG TAB PO (08:20)
[2022-03-23] MEDS: Acetaminophen 325 MG TAB 650 MG PO (08:20)
[2022-03-23] MEDS: Normal Saline Flush 10 ML SYR IVP (08:20)
[2022-03-23] MEDS: VEDOLIZUMAB 300 MG in Normal Saline 250 ML 500 MG IVPB (08:55)
[2022-03-23 09:19] LABS: TSH (W/Ref FT4) 3.23 uIU/mL (0.36-3.74)
== END 2022-04-19 23:59 | disposition home or self-care (01) ==
LOC: INF 04:24
PROVIDERS: PCP Nurse Practitioner Adult Health; Visit Provider Nurse Practitioner Acute Care
DX: K50.90 Crohn's disease, unspecified, without complications (principal); E03.9 Hypothyroidism, unspecified
CPT/HCPCS: 36415; 96365; 84443; J3380

== ENCOUNTER 2022-04-20 03:48 | Outpatient (RCR) | payer MEDICARE, BC, SELFPAY ==
[2022-04-20] MEDS: Loratidine 10 MG TAB PO (08:02)
[2022-04-20] MEDS: Normal Saline Flush 10 ML SYR IVP (08:02)
[2022-04-20] MEDS: Acetaminophen 325 MG TAB 650 MG PO (08:02)
[2022-04-20] MEDS: VEDOLIZUMAB 300 MG in Normal Saline 250 ML 500 MG IVPB (08:35)
[2022-04-20 08:50] LABS: HCT 33.3 % (36.0-46.0); HGB 10.1 g/dL (11.2-15.7); MCH 23.4 pg (27.0-33.0); MCHC 30.3 % (32.0-36.0); MCV 77 fL (80-95); MPV 10.3 fL (8.0-11.0); Platelet Count 166 10^3/uL (130-400); RBC 4.31 10^6/uL (3.93-5.22); RDW 15.4 % (11.7-14.6); RDW-SD 42.3 fL; WBC 4.03 10^3/uL (4.4-10.8)
[2022-04-20 09:09] LABS: ALT 43 U/L (14-59); AST 28 U/L (15-37); Albumin 4.1 g/dL (3.4-5.0); Alkaline Phosphatase 73 U/L (46-116); Bilirubin, Direct 0.2 mg/dL (0.0-0.2); Bilirubin, Total 0.7 mg/dL (0.2-1.0); C-Reactive Protein 0.58 mg/dL (0.0-0.3); Total Protein 7.6 g/dL (6.4-8.2)
== END 2022-05-17 23:59 | disposition home or self-care (01) ==
LOC: INF 03:48
PROVIDERS: PCP Nurse Practitioner Adult Health; Visit Provider Nurse Practitioner Acute Care
DX: K50.90 Crohn's disease, unspecified, without complications (principal)
CPT/HCPCS: 36415; 80076; 85027; 96365; 86140; J3380

== ENCOUNTER 2022-06-15 01:43 | Outpatient (RCR) | payer MEDICARE, BC, SELFPAY ==
[2022-05-18] MEDS: Loratidine 10 MG TAB PO (08:15)
[2022-05-18] MEDS: Acetaminophen 325 MG TAB 650 MG PO (08:16)
[2022-05-18] MEDS: Normal Saline Flush 10 ML SYR IVP (08:36)
[2022-05-18] MEDS: VEDOLIZUMAB 300 MG in Normal Saline 250 ML 500 MG IVPB (08:36)
[2022-06-15] MEDS: Acetaminophen 325 MG TAB 650 MG PO (08:36)
[2022-06-15] MEDS: Loratidine 10 MG TAB PO (08:36)
[2022-06-15] MEDS: Normal Saline Flush 10 ML SYR IVP (08:46)
[2022-06-15] MEDS: VEDOLIZUMAB 300 MG in Normal Saline 250 ML 500 MG IVPB (08:46)
[2022-06-15 09:02] LABS: Hemoglobin A1C 8.2 % (<5.7)
[2022-06-15 09:03] LABS: Anion Gap 11.3 mmol/L (3-11); BUN 13 mg/dL (7-18); CO2 25.7 mmol/L (21.0-32.0); CREATININE 0.9 mg/dL (0.55-1.02); Calcium 9.5 mg/dL (8.5-10.1); Calculated LDL 34 mg/dL (<100); Chloride 99 mmol/L (98-107); Cholesterol 109 mg/dL (<200); Estimated GFR 68.77 (mL/min/1.73m2); Glucose 308 mg/dL (74-106); HDL Cholesterol 35 mg/dL (40-60); Potassium 4.5 mmol/L (3.5-5.1); Sodium 136 mmol/L (136-145); Triglyceride 201 mg/dL (<150)
[2022-08-10 08:54] LABS: HCT 25.6 % (36.0-46.0); HGB 7.3 g/dL (11.2-15.7); MCH 21.6 pg (27.0-33.0); MCHC 28.5 % (32.0-36.0); MCV 76 fL (80-95); MPV 10.2 fL (8.0-11.0); Platelet Count 127 10^3/uL (130-400); RBC 3.38 10^6/uL (3.93-5.22); RDW 17.8 % (11.7-14.6); RDW-SD 48.1 fL; WBC 3.23 10^3/uL (4.4-10.8)
[2022-08-10 09:11] LABS: ALT 23 U/L (14-59); AST 23 U/L (15-37); Albumin 3.5 g/dL (3.4-5.0); Alkaline Phosphatase 65 U/L (46-116); Bilirubin, Direct 0.2 mg/dL (0.0-0.2); Bilirubin, Total 0.8 mg/dL (0.2-1.0); C-Reactive Protein 0.49 mg/dL (0.0-0.3); Total Protein 6.8 g/dL (6.4-8.2)
== END 2022-06-17 23:59 | disposition home or self-care (01) ==
LOC: INF 01:43
PROVIDERS: PCP Nurse Practitioner Adult Health; Visit Provider Nurse Practitioner Acute Care
DX: E11.9 Type 2 diabetes mellitus without complications (principal); I10 Essential (primary) hypertension; E78.5 Hyperlipidemia, unspecified; K50.90 Crohn's disease, unspecified, without complications
CPT/HCPCS: 36415; 80048; 80061; 96365; 83036; J3380

== ENCOUNTER 2022-06-17 03:22 | Outpatient (CLI) | payer MEDICARE, BC, SELFPAY ==
[2022-06-17] MEDS: Albuterol HFA 18 GM 200 PUFF INH IH (13:46)
[2022-06-17] MEDS: Inhaler, Assist Device 1 EACH MC (13:47)
--- NOTE | 2022-06-28 09:01 | W.PFT ---
Date of service: 06/17/22 Time of Service: 13:01 Pulmonary Function Test Result Indications: COPD Interpretation Spirometry: There is moderate airflow limitation. Ther eis a significant bronchodilator response. The FVC is low which is likely due to obstructive disease. Impression Moderate airflow obstruction with a significant bronchodilator response. Clinical Correlation therefore is recommended.
== END 2022-06-17 03:23 | disposition home or self-care (01) ==
LOC: RT 03:23
PROVIDERS: PCP Nurse Practitioner Adult Health; Visit Provider Nurse Practitioner Adult Health
DX: J44.9 Chronic obstructive pulmonary disease, unspecified (principal)
CPT/HCPCS: 94060

== ENCOUNTER 2022-07-13 02:47 | Outpatient (RCR) | payer MEDICARE, BC, SELFPAY ==
[2022-07-13] MEDS: Loratidine 10 MG TAB PO (08:54)
[2022-07-13] MEDS: Normal Saline Flush 10 ML SYR IVP (08:55)
[2022-07-13] MEDS: VEDOLIZUMAB 300 MG in Normal Saline 250 ML 500 MG IVPB (08:55)
[2022-07-13] MEDS: Acetaminophen 325 MG TAB 650 MG PO (08:55)
== END 2022-07-17 23:59 | disposition home or self-care (01) ==
LOC: INF 02:47
PROVIDERS: PCP Nurse Practitioner Adult Health; Visit Provider Nurse Practitioner Acute Care
DX: K50.90 Crohn's disease, unspecified, without complications (principal)
CPT/HCPCS: 96365; J3380

== ENCOUNTER 2022-08-10 04:14 | Outpatient (RCR) | payer MEDICARE, BC, SELFPAY ==
[2022-08-10] MEDS: Normal Saline Flush 10 ML SYR IVP (07:58)
[2022-08-10] MEDS: Loratidine 10 MG TAB PO (07:58)
[2022-08-10] MEDS: Acetaminophen 325 MG TAB 650 MG PO (07:58)
[2022-08-10] MEDS: VEDOLIZUMAB 300 MG in Normal Saline 250 ML 500 MG IVPB (08:34)
== END 2022-08-17 23:59 | disposition home or self-care (01) ==
LOC: INF 04:14
PROVIDERS: PCP Nurse Practitioner Adult Health; Visit Provider Nurse Practitioner Acute Care
DX: K50.90 Crohn's disease, unspecified, without complications (principal)
CPT/HCPCS: 36415; 80076; 85027; 96365; 86140; J3380

== ENCOUNTER 2022-08-12 15:31 | Emergency (ER) | payer MEDICARE, BC, SELFPAY ==
--- NOTE | 2022-08-12 | DI.RAD_ITS ---
Exam(s) XR CHEST 2V PA LATERAL EXAM: XR CHEST 2V PA LATERAL CLINICAL HISTORY: shortness of breath. TECHNIQUE: 2D digital imaging was performed. COMPARISON: CT CT CHEST LUNG CANCER SCREEN from 06/21/2021 FINDINGS: 2 views: Heart size is normal. The mediastinum is not widened. Lungs are clear. No infiltrates nor pleural effusions. Subtle irregularity of the posterolateral right 6th rib noted which probably healing fracture site. No pneumothorax. IMPRESSION: No acute pulmonary findings. Right 6th rib finding as described above, probably healing fracture site. DATA REPOSITORY: RADIATION DOSE DELIVERED:
[2022-08-12 15:43] VITALS: BP 150/64; PULSE 93; RESP 18; TEMP 36.7; O2SAT 92
[2022-08-12 17:28] LABS: Abs Immature Grans 0.01 10^3/uL (0.0-0.06); Absolute Basophil Count 0.02 10^3/uL (0.0-0.2); Absolute Eosinophil Count 0.05 10^3/uL (0.0-0.7); Absolute Lymphocyte Count 0.55 10^3/uL (1.2-3.4); Basophils % 0.6; Eosinophils % 1.4; HCT 27.3 % (36.0-46.0); HGB 7.9 g/dL (11.2-15.7); Immature Grans % 0.3; Lymphocytes % 15.3; MCH 21.7 pg (27.0-33.0); MCHC 28.9 % (32.0-36.0); MCV 75 fL (80-95); MPV 10.6 fL (8.0-11.0); Monocytes % 5.6; Neutrophils % 76.8; Nucleated RBC 0.6 % (0.0-0.3); Platelet Count 129 10^3/uL (130-400); RBC 3.64 10^6/uL (3.93-5.22); RDW 17.5 % (11.7-14.6); RDW-SD 46.8 fL
[2022-08-12 17:43] LABS: ALT 30 U/L (14-59); AST 25 U/L (15-37); Absolute Neutrophil Count 2.76 10^3/uL (1.2-6.7); Albumin 3.9 g/dL (3.4-5.0); Alkaline Phosphatase 74 U/L (46-116); Bilirubin, Direct 0.2 mg/dL (0.0-0.2); Bilirubin, Total 0.8 mg/dL (0.2-1.0); INR 1.1 (0.9-1.1); Prothrombin Time 11.1 sec (9.3-11.0); Total Protein 7.3 g/dL (6.4-8.2)
[2022-08-12 17:45] LABS: Anion Gap 11.6 mmol/L (3-11); BUN 11 mg/dL (7-18); CO2 26.4 mmol/L (21.0-32.0); CREATININE 0.8 mg/dL (0.55-1.02); Calcium 8.8 mg/dL (8.5-10.1); Chloride 101 mmol/L (98-107); Estimated GFR 79.22 (mL/min/1.73m2); Glucose 186 mg/dL (74-106); Potassium 3.6 mmol/L (3.5-5.1); Sodium 139 mmol/L (136-145)
[2022-08-12 17:49] LABS: Anisocytosis 2+
[2022-08-12 17:54] LABS: Polychromasia Present
--- NOTE | 2022-08-12 19:45 | W.ED.GENAD ---
Discharge Plan Disposition Patient Disposition: Home Condition: Stable Discharge Details Clinical Impression: Anemia Primary Care Provider: Grace Becerril ED Provider: Lynette Ventura Home Meds and New Rx's Prescriptions: Continued lorazepam 0.5 mg tablet 0.5 mg SL TID PRN (Reason: anxiety) Qty: 10 0RF Rx Instructions: take 1st tab [place] at airport, repeat with 1/2-1 tab q 4 hrs prn aspirin [Romero Low Dose Aspirin] 81 mg tablet,delayed release (DR/EC) 81 mg PO DAILY Victoza 3-Melquiades 0.6 mg/0.1 mL (18 mg/3 mL) pen injector 1.2 mg subcut DAILY Qty: 6 6RF pravastatin 10 mg tablet 10 mg PO DAILY Qty: 90 3RF metoprolol tartrate 25 mg tablet 25 mg PO BID Qty: 180 3RF metformin 500 mg tablet 1,000 mg PO BID Qty: 360 3RF losartan 100 mg tablet 100 mg PO DAILY Qty: 90 3RF hydrochlorothiazide 12.5 mg tablet 12.5 mg PO .daily in AM Qty: 90 3RF glimepiride [Amaryl] 4 mg tablet 4 mg PO QAM Qty: 90 3RF Rx Instructions: administer with breakfast (DME) lancets [OneTouch UltraSoft Lancets] 1 EACH misc 1 ea Miscellaneous DAILY ONETOUCH ULTRA TEST STRIPS 1 EACH strip 1 ea Miscellaneous TID Qty: 300 Rx Instructions: Pt needing to test TID while titrating insulin dose for DM (E11.9) management to have A1c less than 7.5 Entyvio 300 mg recon soln 300 mg IV Q4W Rx Instructions: administer 2nd dose 2 weeks after first dose; administer over 30 minutes, infusions as directed by Dr Robb. changed to every 4 weeks per [facility] 07/01/21 [facility] note ondansetron HCl 4 mg tablet 4 mg PO Q8H PRN (Reason: nausea and vomiting) Qty: 14 0RF omeprazole 20 mg capsule,delayed release(DR/EC) 20 mg PO DAILY PRN (Reason: gerd) Qty: 90 3RF (DME) pen needle, diabetic [BD Ultra-Fine Mini Pen Needle] 31 gauge x 3/16 needle See Rx Instructions .ROUTE .COMPLEX Qty: 300 3RF Dose Instruction: USE TO INJECT INSULIN TO MAINTAIN A1C LESS THAN 7 Rx Instructions: USE TO INJECT INSULIN TO MAINTAIN A1C LESS THAN 7 insulin glargine [Basaglar KwikPen U-100 Insulin] 100 unit/mL (3 mL) insulin pen 32 unit SC DAILY MDD 40 units/24 h Qty: 60 3RF Rx Instructions: E11.9 to maintain AIC less than 7 cimetidine 200 mg Tablet 200 mg PO PRN PRN No Action levothyroxine 25 mcg capsule 25 mcg PO DAILY Qty: 90 3RF Rx Instructions: Best taken on empty stomach, approx 30-minutes apart from other meds & food Discharge Instructions Instructions: Anemia (ED) Additional Instructions: Your hemoglobin level is 7.9 which is up from 7.3 2 days ago. We will schedule you for outpatient lab draw on Monday please return sooner for new or worsening symptoms Referrals: Grace Becerril NP [Primary Care Provider] - Discharge Data Discharge Date/Time-TO BE ENTERED AT DEPARTURE: 08/12/22 20:19 Medical Decision Making <Lynette Ventura NP - Last Filed: 08/13/22 20:23> Patient referred to the emergency department from her outpatient team for possible blood transfusion. She had outpatient lab work done 2 days ago and had a hemoglobin of 7.3. Her vital signs are stable. IV established she was typed and crossed and CBC ordered and reviewed. Hemoglobin up from 7.3-7.9 today this was discussed and she will choose to be discharged and follow-up with her outpatient team return here sooner for new or worsening symptoms she remained hemodynamically stable while in the department Medical Records Medical records reviewed: Yes I reviewed the patient's medical records. <Murtaza Horn MD - Last Filed: 08/24/22 17:36> Note: I did not evaluate this patient. The patient was seen, evaluated, treated and dispositioned independently by JOSE Ventura. HPI <Lynette Ventura NP - Last Filed: 08/13/22 20:23> General Mode of arrival: ambulatory. Date/Time Provider Initiated Documentation: 08/12/22 15:50. Limitations to Documentation: no limitations. Information obtained by: patient. HPI Narrative: Patient presents to the emergency department for evaluation of lab work. 2 days ago her hemoglobin was 7.3 concerned that it has further dropped and she may need blood transfusion which she has needed in the past she has a history of Crohn's disease Related Data Home Medications Medication Instructions Recorded Confirmed lancets (OneTouch UltraSoft 06/05/12 06/08/22 Lancets) Onetouch Ultra Test Strips 1 ea miscellaneous TID #300 strips 07/11/17 06/08/22 lorazepam 0.5 mg tablet 0.5 mg sublingual TID PRN anxiety 02/20/18 06/08/22 #10 tabs aspirin 81 mg tablet,delayed 81 mg PO DAILY 04/17/18 06/08/22 release (Romero Low Dose Aspirin) cimetidine 200 mg tablet 200 mg PO PRN PRN 10/26/20 06/08/22 vedolizumab 300 mg intravenous 300 mg IV Q4W 07/05/21 06/08/22 solution (Entyvio) ondansetron HCl 4 mg tablet 4 mg PO Q8H PRN nausea and 01/28/22 06/08/22 vomiting #14 tabs omeprazole 20 mg capsule,delayed 20 mg PO DAILY PRN gerd #90 04/06/22 06/08/22 release tab-caps pen needle, diabetic 31 gauge x #300 ea 04/06/22 06/08/22 3/16 (BD Ultra-Fine Mini Pen Needle) glimepiride 4 mg tablet (Amaryl) 4 mg PO QAM #90 tabs 06/08/22 06/08/22 hydrochlorothiazide 12.5 mg tablet 12.5 mg PO .daily in AM #90 tabs 06/08/22 06/08/22 liraglutide 0.6 mg/0.1 mL (18 mg/3 1.2 mg (0.2 mL) subcut DAILY #6 06/08/22 06/08/22 mL) subcutaneous pen injector SYRGS (Victoza 3-Melquiades) losartan 100 mg tablet 100 mg PO DAILY #90 tabs 06/08/22 06/08/22 metformin 500 mg tablet 1,000 mg PO BID #360 tab-caps 06/08/22 06/08/22 metoprolol tartrate 25 mg tablet 25 mg PO BID #180 tabs 06/08/22 06/08/22 pravastatin 10 mg tablet 10 mg PO DAILY #90 tab-caps 06/08/22 06/08/22 insulin glargine 100 unit/mL (3 32 unit (0.32 mL) subcut DAILY #60 06/16/22 mL) subcutaneous pen (Basaglar mL KwikPen U-100 Insulin) levothyroxine 25 mcg capsule 25 mcg PO DAILY #90 caps 08/22/22 Previous Rx's Medication Instructions Recorded lorazepam 0.5 mg tablet 0.5 mg sublingual TID PRN anxiety 02/20/18 #10 tabs ondansetron HCl 4 mg tablet 4 mg PO Q8H PRN nausea and 01/28/22 vomiting #14 tabs omeprazole 20 mg capsule,delayed 20 mg PO DAILY PRN gerd #90 04/06/22 release tab-caps pen needle, diabetic 31 gauge x #300 ea 04/06/2206/02 (BD Ultra-Fine Mini Pen Needle) glimepiride 4 mg tablet (Amaryl) 4 mg PO QAM #90 tabs 06/08/22 hydrochlorothiazide 12.5 mg tablet 12.5 mg PO .daily in AM #90 tabs 06/08/22 liraglutide 0.6 mg/0.1 mL (18 mg/3 1.2 mg (0.2 mL) subcut DAILY #6 06/08/22 mL) subcutaneous pen injector SYRGS (Victoza 3-Melquiades) losartan 100 mg tablet 100 mg PO DAILY #90 tabs 06/08/22 metformin 500 mg tablet 1,000 mg PO BID #360 tab-caps 06/08/22 metoprolol tartrate 25 mg tablet 25 mg PO BID #180 tabs 06/08/22 pravastatin 10 mg tablet 10 mg PO DAILY #90 tab-caps 06/08/22 insulin glargine 100 unit/mL (3 32 unit (0.32 mL) subcut DAILY #60 06/16/22 mL) subcutaneous pen (Basaglar mL KwikPen U-100 Insulin) levothyroxine 25 mcg capsule 25 mcg PO DAILY #90 caps 08/22/22 Allergies Allergy/AdvReac Type Severity Reaction Status Date / Time ciprofloxacin Allergy Intermediate Skin Rash Verified 06/08/22 11:18 lisinopril AdvReac Intermediate cough Verified 06/08/22 11:18 simvastatin AdvReac Intermediate fatigue Verified 06/08/22 11:18 codeine [Codeine] AdvReac nausea/vomi Verified 06/08/22 11:18 ting General Stated Complaint: GI Bleed ANDRES: 3 Review of Systems <Lynette Ventura NP - Last Filed: 08/13/22 20:23> All systems reviewed & are unremarkable except as noted in HPI and below PFSH <Lynette Ventura NP - Last Filed: 08/13/22 20:23> All Active Problems (Updated 08/12/22 @ 19:46 by Lynette Ventura NP) Anemia (Chronic) Hypothyroidism (Chronic) s/p R partial thyroidectomy Arteriosclerosis of both carotid arteries (Acute) 08/31/21 [facility] Vascular, f/u in 1 year 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 (Acute 02/17/21) MRI angiogram Neck - [facility] Multinodular thyroid (Acute) Bilateral carotid bruits (Acute) Liver cirrhosis secondary to nonalcoholic steatohepatitis (SILVESTRE) (Chronic ~03/2011) Portal hypertension (Acute) Splenomegaly (Chronic) 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 (Acute) [id number]/24/20 Crohn's disease (Chronic ~2018) 07/01/21 [facility] note - of small intestine with intestinal obstruction Iron deficiency anemia (Acute) Essential hypertension (Chronic 02/05/13) Diabetes mellitus type 2, controlled, without complications (Chronic 06/07/12) no retinopathy 01/06/14 A1C goal 7.5 Other and unspecified hyperlipidemia (Chronic 06/07/12) PCEq risk 11% LDL baseline 87 Gastroesophageal reflux disease (Chronic 04/12/11) Former cigarette smoker (Acute) Supraventricular tachycardia, paroxysmal (Chronic 06/02/16) Pulmonary nodule (Chronic) Tubular adenoma (Chronic 10/06/15) Lichen sclerosus et atrophicus (Chronic 07/26/11) 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) Dr Steinberg Iron deficiency anemia refractory to iron therapy Lichen sclerosus et atrophicus Nevus Hammer Posterior vitreous detachment, both eyes (01/06/14) Dr Steinberg Premature menopause Pyelonephritis, acute Senile incipient cataract of both eyes (01/06/14) Dr Steinberg SOB (shortness of breath) Thyroid nodule (~2018) ENT Laurence--bx non-diagnostic; s/p partial thyroidectomy Vaginitis (10/31/12) Surgical History (Updated 03/09/22 @ 18:15 by Grace Becerril NP) Appendectomy 1991 Biopsy of breast (~1992) R benign 1992 Colonoscopy (10/06/15) Dr Hunter, tubular adenoma, repeat 5 yrs Endoscopy Upper GI 04/06/18-[facility] [place] Upper GI [id number] Bensen H/O partial thyroidectomy (~07/2021) Right 08/27/21 F/U Gen Surgery Nuclear sclerotic cataract of left eye Nuclear sclerotic cataract of right eye Posterior subcapsular age-related cataract of left eye Posterior subcapsular age-related cataract, right eye Family History Father Diabetes Sister Diabetes Breast cancer Other Heart disease Personal history of malignant neoplasm Social History Smoking/Tobacco Use Status: Former Tobacco Use Quit Date: 03/20/06 Smoking risk assessment performed?: Yes Alcohol Intake: never Drug use: Never Substance use type: does not use Household members: spouse Housing: house Number of Children: 3 number of grandchildren: 2 current occupation: rertired director from [employer] What is your relationship status?: How often do you talk on the phone with friends or family?: three or more times per week Panel score (0-1 are the most socially isolated patients): 2 What type of physical activity do you participate in: walking Duration: 15-30 minutes/day Frequency: 3-4 times per week Seatbelt use: always Drive intox or ride w/intox motorcycle delivery driver: No Working smoke detector in home: Yes Fire extinguisher in home: Yes Carbon monox detector in home: Yes Do you feel safe at home: Yes Do you feel safe in your relationship?: Yes Female Reproductive History Menstrual Menopause type: natural History History 3 Para 3 Hx # Term Pregnancies Multiple births Hx # Pregnancies Ectopic pregnancies AB induced Hx Number of Living Children AB spontaneous Exam <Lynette Ventura NP - Last Filed: 08/13/22 20:23> Const General: cooperative, comfortable and no acute distress Nutritional Appearance: average body habitus Orientation: alert, awake and oriented x3 HENMT Head: normal to inspection, normocephalic and atraumatic Mouth: oral mucosae normal Chest Chest: normal inspection of the chest Resp Effort & Inspection: normal respiratory effort Cardio Rate: regular rate Rhythm: regular rhythm GI Inspection: normal to inspection Palpation: soft Auscultation: normal bowel sounds Skin General skin exam: no rashes or lesions noted Neuro General: patient alert, patient awake and patient oriented x3 Course <Lynette Ventura NP - Last Filed: 08/13/22 20:23> Vital Signs Vital signs: Vital Signs Temperature 36.7 C 08/12/22 15:43 Pulse 93 H 08/12/22 15:43 Respiratory Rate 18 08/12/22 15:43 Blood Pressure 150/64 H 08/12/22 15:43 Pulse Oximetry 92 08/12/22 15:43 Temperature 36.7 C 08/12/22 15:43 Temperature Source Temporal Artery Scan 08/12/22 15:43 Pulse 93 H 08/12/22 15:43 Respiratory Rate 18 08/12/22 15:43 Respiratory Effort Normal 08/12/22 17:43 Blood Pressure 150/64 H 08/12/22 15:43 Blood Pressure Position Sitting 08/12/22 15:43 Pulse Oximetry 92 08/12/22 15:43 Oxygen Delivery Method Room Air 08/12/22 15:43 Oxygen Flow Rate 0 08/12/22 15:43 Pain Level 5 08/12/22 17:42 Lab/Test Results Lab/Test Results: Laboratory Tests Range/Units 08/12/22 08/12/22 08/12/22 17:10 17:10 17:10 WBC (4.4-10.8) 10^3/uL 3.60 L RBC (3.93-5.22) 10^6/uL 3.64 L Hgb (11.2-15.7) g/dL 7.9 L Hct (36.0-46.0) % 27.3 L MCV (80-95) fL 75 L MCH (27.0-33.0) pg 21.7 L MCHC (32.0-36.0) % 28.9 L RDW (11.7-14.6) % 17.5 H Plt Count (130-400) 10^3/uL 129 L MPV (8.0-11.0) fL 10.6 Immature Gran % 0.3 Neutrophils % 76.8 Lymphocytes % 15.3 Monocytes % 5.6 Eosinophils % 1.4 Basophils % 0.6 Nucleated RBC % (0.0-0.3) % 0.6 H Absolute Neutrophils (1.2-6.7) 10^3/uL 2.76 Absolute Lymphocytes (1.2-3.4) 10^3/uL 0.55 L Absolute Monocytes (0.1-0.8) 10^3/uL 0.20 Absolute Eosinophils (0.0-0.7) 10^3/uL 0.05 Absolute Basophils (0.0-0.2) 10^3/uL 0.02 RBC Morphology See Below Polychromasia Present Anisocytosis 2+ PT (9.3-11.0) sec INR (0.9-1.1) Sodium (136-145) mmol/L 139 Potassium (3.5-5.1) mmol/L 3.6 Chloride (98-107) mmol/L 101 Carbon Dioxide (21.0-32.0) mmol/L 26.4 Anion Gap (3-11) mmol/L 11.6 H BUN (7-18) mg/dL 11 Creatinine (0.55-1.02) mg/dL 0.8 Est GFR (CKD-EPI 2020) (mL/min/1.73m2) 79.22 Glucose (74-106) mg/dL 186 H Calcium (8.5-10.1) mg/dL 8.8 Total Bilirubin (0.2-1.0) mg/dL Conjugated Bilirubin (0.0-0.2) mg/dL AST (15-37) U/L ALT (14-59) U/L Alkaline Phosphatase (46-116) U/L Total Protein (6.4-8.2) g/dL Albumin (3.4-5.0) g/dL Patient ABO/Rh A Positive Antibody Screen NEGATIVE Range/Units 08/12/22 08/12/22 17:10 17:10 WBC (4.4-10.8) 10^3/uL RBC (3.93-5.22) 10^6/uL Hgb (11.2-15.7) g/dL Hct (36.0-46.0) % MCV (80-95) fL MCH (27.0-33.0) pg MCHC (32.0-36.0) % RDW (11.7-14.6) % Plt Count (130-400) 10^3/uL MPV (8.0-11.0) fL Immature Gran % Neutrophils % Lymphocytes % Monocytes % Eosinophils % Basophils % Nucleated RBC % (0.0-0.3) % Absolute Neutrophils (1.2-6.7) 10^3/uL Absolute Lymphocytes (1.2-3.4) 10^3/uL Absolute Monocytes (0.1-0.8) 10^3/uL Absolute Eosinophils (0.0-0.7) 10^3/uL Absolute Basophils (0.0-0.2) 10^3/uL RBC Morphology Polychromasia Anisocytosis PT (9.3-11.0) sec 11.1 H INR (0.9-1.1) 1.1 Sodium (136-145) mmol/L Potassium (3.5-5.1) mmol/L Chloride (98-107) mmol/L Carbon Dioxide (21.0-32.0) mmol/L Anion Gap (3-11) mmol/L BUN (7-18) mg/dL Creatinine (0.55-1.02) mg/dL Est GFR (CKD-EPI 2020) (mL/min/1.73m2) Glucose (74-106) mg/dL Calcium (8.5-10.1) mg/dL Total Bilirubin (0.2-1.0) mg/dL 0.8 Conjugated Bilirubin (0.0-0.2) mg/dL 0.2 AST (15-37) U/L 25 ALT (14-59) U/L 30 Alkaline Phosphatase (46-116) U/L 74 Total Protein (6.4-8.2) g/dL 7.3 Albumin (3.4-5.0) g/dL 3.9 Patient ABO/Rh Antibody Screen
== END 2022-08-12 20:19 | disposition home or self-care (01) ==
PROVIDERS: Emergency Provider Nurse Practitioner Acute Care; PCP Nurse Practitioner Adult Health
DX: D64.9 Anemia, unspecified (principal); R06.02 Shortness of breath; K50.90 Crohn's disease, unspecified, without complications
CPT/HCPCS: 80048; 80076; 86850; 86900; 86901; 99283; 71046; 85025; 85610

== ENCOUNTER 2022-08-16 11:28 | Outpatient (CLI) | payer MEDICARE, BC, SELFPAY ==
[2022-08-16 11:37] LABS: Abs Immature Grans 0.03 10^3/uL (0.0-0.06); Absolute Basophil Count 0.02 10^3/uL (0.0-0.2); Absolute Eosinophil Count 0.07 10^3/uL (0.0-0.7); Absolute Lymphocyte Count 0.54 10^3/uL (1.2-3.4); Absolute Monocyte Count 0.33 10^3/uL (0.1-0.8); Basophils % 0.5; Eosinophils % 1.7; HCT 28.4 % (36.0-46.0); HGB 8.1 g/dL (11.2-15.7); Immature Grans % 0.7; Lymphocytes % 13.3; MCH 21.4 pg (27.0-33.0); MCHC 28.5 % (32.0-36.0); MCV 75 fL (80-95); MPV 10.6 fL (8.0-11.0); Monocytes % 8.1; Neutrophils % 75.7; Platelet Count 142 10^3/uL (130-400); RBC 3.78 10^6/uL (3.93-5.22); RDW 17.3 % (11.7-14.6); RDW-SD 47.1 fL; WBC 4.05 10^3/uL (4.4-10.8)
[2022-08-16 11:39] LABS: Absolute Neutrophil Count 3.07 10^3/uL (1.2-6.7)
== END 2022-08-16 11:29 | disposition home or self-care (01) ==
LOC: LBO 11:28
PROVIDERS: PCP Nurse Practitioner Adult Health; Visit Provider Nurse Practitioner Acute Care
DX: D50.9 Iron deficiency anemia, unspecified (principal)
CPT/HCPCS: 36415; 85025

== ENCOUNTER 2022-09-01 01:11 | Outpatient (CLI) | payer MEDICARE, BC, SELFPAY ==
[2022-09-01 14:00] LABS: Iron 31 ug/dL (50-170); Total Iron Binding Capacity 432 ug/dL (250-450); Transferrin Sat 7 % (15-50)
[2022-09-01 14:09] LABS: Ferritin 5 ng/mL (8-252)
== END 2022-09-01 01:12 | disposition home or self-care (01) ==
PROVIDERS: PCP Nurse Practitioner Adult Health; Referring Provider Student in an Organized Health Care Education/Training Program; Visit Provider Student in an Organized Health Care Education/Training Program
DX: D64.9 Anemia, unspecified (principal)
CPT/HCPCS: 36415; 82728; 83540; 83550

== ENCOUNTER 2022-09-13 01:48 | Outpatient (RCR) | payer MEDICARE, BC, SELFPAY ==
[2022-09-13] MEDS: Acetaminophen 325 MG TAB 650 MG PO (09:14)
[2022-09-13] MEDS: Loratidine 10 MG TAB PO (09:14)
[2022-09-13] MEDS: VEDOLIZUMAB 300 MG in Normal Saline 250 ML 500 MG IVPB (10:19)
== END 2022-09-16 23:59 | disposition home or self-care (01) ==
LOC: INF 01:48
PROVIDERS: PCP Nurse Practitioner Adult Health; Visit Provider Nurse Practitioner Acute Care
DX: D50.9 Iron deficiency anemia, unspecified (principal)
CPT/HCPCS: 96365; J3380

== ENCOUNTER 2022-10-11 03:24 | Outpatient (RCR) | payer MEDICARE, BC, SELFPAY ==
[2022-09-26] MEDS: Normal Saline Flush 10 ML SYR IVP (09:00)
[2022-09-26] MEDS: FERUMOXYTOL 510 MG in Normal Saline 50 ML 134 MG IVPB (09:00)
[2022-10-06 08:49] VITALS: BP 151/63; PULSE 90; O2SAT 98
[2022-10-06] MEDS: FERUMOXYTOL 510 MG in Normal Saline 50 ML 134 MG IVPB (09:18)
[2022-10-06] MEDS: Normal Saline Flush 10 ML SYR IVP (09:18)
[2022-10-11] MEDS: Loratidine 10 MG TAB PO (08:20)
[2022-10-11] MEDS: Acetaminophen 325 MG TAB 650 MG PO (08:20)
[2022-10-11] MEDS: Normal Saline Flush 10 ML SYR IVP (08:30)
[2022-10-11] MEDS: VEDOLIZUMAB 300 MG in Normal Saline 250 ML 500 MG IVPB (08:30)
== END 2022-10-17 23:59 | disposition home or self-care (01) ==
LOC: INF 03:24
PROVIDERS: PCP Nurse Practitioner Adult Health; Visit Provider Nurse Practitioner Acute Care
DX: K50.90 Crohn's disease, unspecified, without complications (principal)
CPT/HCPCS: 96365; J3380

== ENCOUNTER 2022-10-20 03:58 | Outpatient (CLI) | payer MEDICARE, BC, SELFPAY ==
[2022-10-20 09:28] LABS: HGB 10.3 g/dL (11.2-15.7); MCH 25.5 pg (27.0-33.0); MCHC 30.3 % (32.0-36.0); MCV 84 fL (80-95); Platelet Count 137 10^3/uL (130-400); RBC 4.04 10^6/uL (3.93-5.22); RDW-SD 67.8 fL; WBC 3.18 10^3/uL (4.4-10.8)
[2022-10-20 09:44] LABS: RDW 22.3 % (11.7-14.6)
[2022-10-20 10:10] LABS: Iron 58 ug/dL (50-170); Total Iron Binding Capacity 302 ug/dL (250-450); Transferrin Sat 19 % (15-50)
[2022-10-20 10:22] LABS: Ferritin 114 ng/mL (8-252)
== END 2022-10-20 03:59 | disposition home or self-care (01) ==
PROVIDERS: PCP Nurse Practitioner Adult Health; Visit Provider Nurse Practitioner Family
DX: D64.9 Anemia, unspecified (principal)
CPT/HCPCS: 36415; 85027; 82728; 83540; 83550

== ENCOUNTER 2022-11-15 02:35 | Outpatient (RCR) | payer MEDICARE, BC, SELFPAY ==
[2022-10-18 00:04] VITALS: BP 151/63; PULSE 90
[2022-11-15] MEDS: Acetaminophen 325 MG TAB 650 MG PO (08:16)
[2022-11-15] MEDS: Loratidine 10 MG TAB PO (08:16)
[2022-11-15] MEDS: VEDOLIZUMAB 300 MG in Normal Saline 250 ML 500 MG IVPB (08:39)
[2022-11-15] MEDS: Normal Saline Flush 10 ML SYR IVP (08:39)
== END 2022-11-17 23:59 | disposition home or self-care (01) ==
LOC: INF 02:35
PROVIDERS: PCP Nurse Practitioner Adult Health; Visit Provider Nurse Practitioner Acute Care
DX: D50.9 Iron deficiency anemia, unspecified (principal)
CPT/HCPCS: 96365; J3380

== ENCOUNTER 2022-12-07 03:33 | Outpatient (CLI) | payer MEDICARE, BC, SELFPAY ==
[2022-12-07 11:27] LABS: HCT 34.2 % (36.0-46.0); HGB 10.8 g/dL (11.2-15.7); MCH 25.4 pg (27.0-33.0); MCHC 31.6 % (32.0-36.0); MCV 80 fL (80-95); MPV 9.5 fL (8.0-11.0); Platelet Count 186 10^3/uL (130-400); RBC 4.26 10^6/uL (3.93-5.22); RDW 15.2 % (11.7-14.6); RDW-SD 43.8 fL
[2022-12-07 11:47] LABS: Ferritin 21 ng/mL (8-252)
[2022-12-07 12:29] LABS: Iron 40 ug/dL (50-170); Total Iron Binding Capacity 337 ug/dL (250-450); Transferrin Sat 12 % (15-50)
== END 2022-12-07 03:34 | disposition home or self-care (01) ==
PROVIDERS: Visit Provider Nurse Practitioner Family
DX: D50.9 Iron deficiency anemia, unspecified (principal)
CPT/HCPCS: 36415; 85027; 82728; 83540; 83550; 84466

== ENCOUNTER 2022-12-13 01:36 | Outpatient (RCR) | payer MEDICARE, BC, SELFPAY ==
[2022-11-18 00:14] VITALS: BP 151/63; PULSE 90
[2022-12-13] MEDS: Acetaminophen 325 MG TAB 650 MG PO (08:10)
[2022-12-13] MEDS: Normal Saline Flush 10 ML SYR IVP (08:10)
[2022-12-13] MEDS: Loratidine 10 MG TAB PO (08:10)
[2022-12-13] MEDS: VEDOLIZUMAB 300 MG in Normal Saline 250 ML 500 MG IVPB (08:28)
== END 2022-12-17 23:59 | disposition home or self-care (01) ==
LOC: INF 01:36
PROVIDERS: Visit Provider Nurse Practitioner Acute Care
DX: K50.90 Crohn's disease, unspecified, without complications (principal)
CPT/HCPCS: 96365; J3380

== ENCOUNTER 2023-01-13 00:58 | Outpatient (RCR) | payer MEDICARE, BC, SELFPAY ==
[2022-12-18 00:05] VITALS: BP 151/63; PULSE 90
[2023-01-04] MEDS: methylPREDNISolone SUCC 40 MG VIAL IVP (12:20)
[2023-01-04] MEDS: FERUMOXYTOL 510 MG in Normal Saline 50 ML 89.3 MG IVPB (13:18)
[2023-01-04 14:10] VITALS: BP 145/67; PULSE 79; RESP 18; O2SAT 96
[2023-01-04 14:32] VITALS: BP 146/68; PULSE 82; O2SAT 97
[2023-01-12] MEDS: methylPREDNISolone SUCC 40 MG VIAL IVP (07:39)
[2023-01-12] MEDS: Normal Saline Flush 10 ML SYR IVP (07:39)
[2023-01-12] MEDS: FERUMOXYTOL 510 MG in Normal Saline 50 ML 134 MG IVPB (07:55)
[2023-01-13] MEDS: Loratidine 10 MG TAB PO (07:34)
[2023-01-13] MEDS: Acetaminophen 325 MG TAB 650 MG PO (07:34)
[2023-01-13] MEDS: Normal Saline Flush 10 ML SYR IVP (08:01)
[2023-01-13] MEDS: VEDOLIZUMAB 300 MG in Normal Saline 250 ML 500 MG IVPB (08:01)
== END 2023-01-17 23:59 | disposition home or self-care (01) ==
LOC: INF 00:58
PROVIDERS: Visit Provider Nurse Practitioner Acute Care
DX: K50.90 Crohn's disease, unspecified, without complications (principal)
CPT/HCPCS: 96365; 96374; J3380

== ENCOUNTER 2023-02-07 02:52 | Outpatient (RCR) | payer MEDICARE, BC, SELFPAY ==
[2023-01-18 00:05] VITALS: BP 151/63; PULSE 90; RESP 18
[2023-02-07] MEDS: Loratidine 10 MG TAB PO (08:18)
[2023-02-07] MEDS: Acetaminophen 325 MG TAB 650 MG PO (08:18)
[2023-02-07] MEDS: Normal Saline Flush 10 ML SYR IVP (08:20)
[2023-02-07] MEDS: VEDOLIZUMAB 300 MG in Normal Saline 250 ML 500 MG IVPB (08:27)
== END 2023-02-16 23:59 | disposition home or self-care (01) ==
LOC: INF 02:52
PROVIDERS: PCP Nurse Practitioner Adult Health; Visit Provider Nurse Practitioner Acute Care
DX: D50.9 Iron deficiency anemia, unspecified; K50.90 Crohn's disease, unspecified, without complications
CPT/HCPCS: 96365; J3380

== ENCOUNTER 2023-02-13 03:32 | Outpatient (CLI) | payer MEDICARE, BC, SELFPAY ==
[2023-02-13 13:19] LABS: HCT 38.1 % (36.0-46.0); HGB 12.3 g/dL (11.2-15.7); MCH 26.5 pg (27.0-33.0); MCHC 32.3 % (32.0-36.0); MCV 82 fL (80-95); MPV 9.6 fL (8.0-11.0); Platelet Count 141 10^3/uL (130-400); RBC 4.64 10^6/uL (3.93-5.22); RDW 17.5 % (11.7-14.6); RDW-SD 52.9 fL; WBC 4.39 10^3/uL (4.4-10.8)
[2023-02-13 14:08] LABS: Ferritin 132 ng/mL (8-252)
[2023-02-13 14:11] LABS: Iron 54 ug/dL (50-170); Total Iron Binding Capacity 286 ug/dL (250-450); Transferrin Sat 19 % (15-50)
== END 2023-02-13 03:33 | disposition home or self-care (01) ==
PROVIDERS: PCP Nurse Practitioner Adult Health; Visit Provider Nurse Practitioner Family
DX: D50.9 Iron deficiency anemia, unspecified (principal)
CPT/HCPCS: 36415; 85027; 82728; 83540; 83550

== ENCOUNTER → 2023-02-22 01:55 | Outpatient (CLI) | payer MEDICARE, BC, SELFPAY ==
--- NOTE | 2023-02-22 08:00 | DI.MAMMO_ITS ---
Exam(s) MAMMO SCREENING EXAM: MAMMO SCREENING CLINICAL HISTORY: screening, z12.39. TECHNIQUE: Bilateral full field digital CC and MLO mammographic images were obtained with 3D tomosyn thesis and utilizing computer aided detection (CAD). COMPARISON: Prior mammograms were reviewed. FINDINGS: No new findings in the right breast. The left breast there is a well-defined noncalcified 3 millimeter nodule located 6-7 cm in from the n ipple on the CC view, lateral of center. It is located 5 cm in from the nipple on the MLO view. There are no malignant-appearing microcalcification groups this region nor elsewhere in either breast . There is no significant architectural distortion nor skin thickening-retraction. IMPRESSION: 1. No radiographic evidence of malignancy in the right breast. 2. Well-defined noncalcified 3 mm left breast nodule. Spot compression view and ultrasound recommen ded. BI-RADS Category 0 - Assessment Incomplete: Need additional imaging evaluation Breast Density - Category B - Scattered areas of fibroglandular density Breast density Category C or D implies that the patient has dense breast tissue. Dense breast tissue can make it harder to find cancer on a mammogram. Dense breast tissue is also associated with an incr eased risk of breast cancer. This information about the result of the mammogram report was provided to the patient to raise their awareness. Use this report when you speak with the patient about their risks for breast cancer, which includes their family history. At that time, you may recommend additional screening tests (Ultrasoun d or MRI) as these tests may add significant information. A negative radiographic report should not delay biopsy if a dominant or clinically suspicious mass is present. Up to ten percent of cancers are not identified on mammography. A negative report may reinforce clinical impression. Adenosis and dense breasts may obscure an underlying neoplasm. False positive reports average 6 to 10%. Patient will receive a letter notifying them of these results.
== END ==
PROVIDERS: PCP Nurse Practitioner Adult Health; Visit Provider Nurse Practitioner Adult Health
DX: Z12.31 Encounter for screening mammogram for malignant neoplasm of breast (principal); R92.8 Other abnormal and inconclusive findings on diagnostic imaging of breast
CPT/HCPCS: 77063; 77067

== ENCOUNTER → 2023-02-24 09:36 | Outpatient (CLI) | payer MEDICARE, BC, SELFPAY ==
--- NOTE | 2023-02-24 | DI.US_ITS ---
Exam(s) MG MAMMO SCREEN CALL BACK UNI US BREAST LT COMPLETE EXAM: MG MAMMO SCREEN CALL BACK UNI-LEFT AND COMPLETE LEFT BREAST ULTRASOUND CLINICAL HISTORY: F/U ABNL MAMMO, WELL DEFINED NONCALCIFIED 3 MM LT BREAST NODULE. TECHNIQUE: Unilateral LEFT BREAST spot mammographic images obtained with 3D tomosynthesisand utilizi ng computer aided detection (CAD). . Complete LEFT breast Ultrasound was also performed, including all 4 quadrants, the retroareolar regio n, and the ipsilateral axilla. COMPARISON: Prior mammograms were reviewed. This additional imaging was performed due to findings described on the recent screening mammogram of 02/22/2023. FINDINGS: DIAGNOSTIC MAMMOGRAM: Additional mammographic views performed todaydoes not dissipate the small nodule. We proceeded with ultrasound...... COMPLETE LEFT BREAST ULTRASOUND: Ultrasound performed today reveals no evidence of solid or significant cystic lesions in all 4 quadra nts. Small finding at the 3 o'clock position is noted but not reproducible in more than one plane. Scanning of the ipsilateral axilla reveals no significant adenopathy. IMPRESSION: 1. Small benign-appearing left breast nodule seen on mammogram. 2. Negative complete left breast ultrasound Appropriate follow-up as discussed by myself with the patient today is repeat left breast mammogram i n 6 months, with earlier imaging if a self detected breast change is noted. The patient was informed of these findings and recommendations by myself prior to leaving the departm ent today. BI-RADS Category 3 - 6 month - Probably Benign Finding: Recommend follow-up mammography in 6 months Breast Density - Category A - Almost entirely fatty Breast density Category C or D implies that the patient has dense breast tissue. Dense breast tissue can make it harder to find cancer on a mammogram. Dense breast tissue is also associated with an incr eased risk of breast cancer. This information about the result of the mammogram report was provided to the patient to raise their awareness. Use this report when you speak with the patient about their risks for breast cancer, which includes their family history. At that time, you may recommend additional screening tests (Ultrasoun d or MRI) as these tests may add significant information. A negative radiographic report should not delay biopsy if a dominant or clinically suspicious mass is present. Up to ten percent of cancers are not identified on mammography. A negative report may reinforce clinical impression. Adenosis and dense breasts may obscure an underlying neoplasm. False positive reports average 6 to 10%. Patient will receive a letter notifying them of these results.
== END ==
PROVIDERS: PCP Nurse Practitioner Adult Health; Visit Provider Nurse Practitioner Adult Health
DX: Z12.31 Encounter for screening mammogram for malignant neoplasm of breast (principal); R92.8 Other abnormal and inconclusive findings on diagnostic imaging of breast
CPT/HCPCS: 76642; 77063; 77067

== ENCOUNTER 2023-03-07 02:22 | Outpatient (RCR) | payer MEDICARE, BC, SELFPAY ==
[2023-02-17 00:04] VITALS: BP 151/63; PULSE 90; RESP 18
[2023-03-07] MEDS: Loratidine 10 MG TAB PO (08:05)
[2023-03-07] MEDS: Acetaminophen 325 MG TAB 650 MG PO (08:05)
[2023-03-07] MEDS: Normal Saline Flush 10 ML SYR IVP (08:17)
[2023-03-07] MEDS: VEDOLIZUMAB 300 MG in Normal Saline 250 ML 500 MG IVPB (08:32)
== END 2023-03-19 23:59 | disposition home or self-care (01) ==
LOC: INF 02:22
PROVIDERS: PCP Nurse Practitioner Adult Health; Visit Provider Nurse Practitioner Acute Care
DX: D50.9 Iron deficiency anemia, unspecified (principal)
CPT/HCPCS: 96365; J3380

== ENCOUNTER 2023-04-03 04:57 | Outpatient (RCR) | payer MEDICARE, BC, SELFPAY ==
[2023-03-20 00:15] VITALS: BP 151/63; PULSE 90; RESP 18
[2023-04-03] MEDS: Normal Saline Flush 10 ML SYR IVP (10:19)
[2023-04-03] MEDS: Loratidine 10 MG TAB PO (10:19)
[2023-04-03] MEDS: Acetaminophen 325 MG TAB 650 MG PO (10:19)
[2023-04-03] MEDS: VEDOLIZUMAB 300 MG in Normal Saline 250 ML 500 MG IVPB (10:36)
[2023-04-03 10:55] LABS: HCT 37.3 % (36.0-46.0); HGB 11.8 g/dL (11.2-15.7); MCH 27.1 pg (27.0-33.0); MCHC 31.6 % (32.0-36.0); MCV 86 fL (80-95); Platelet Count 172 10^3/uL (130-400); RBC 4.35 10^6/uL (3.93-5.22); RDW 15.4 % (11.7-14.6); WBC 4.68 10^3/uL (4.4-10.8)
[2023-04-03 11:12] LABS: ALT 30 U/L (14-59); AST 21 U/L (15-37); Albumin 3.6 g/dL (3.4-5.0); Alkaline Phosphatase 75 U/L (46-116); Bilirubin, Direct 0.3 mg/dL (0.0-0.2); Bilirubin, Total 0.7 mg/dL (0.2-1.0); C-Reactive Protein 0.96 mg/dL (0.0-0.3); Total Protein 7.3 g/dL (6.4-8.2)
== END 2023-04-19 23:59 | disposition home or self-care (01) ==
LOC: INF 04:57
PROVIDERS: Student in an Organized Health Care Education/Training Program; PCP Nurse Practitioner Adult Health; Visit Provider Nurse Practitioner Acute Care
DX: K50.90 Crohn's disease, unspecified, without complications (principal)
CPT/HCPCS: 36415; 80076; 85027; 96365; 86140; J3380

== ENCOUNTER → 2023-04-10 03:24 | Outpatient (CLI) | payer MEDICARE, BC, SELFPAY ==
--- NOTE | 2023-04-10 07:30 | DI.US_ITS ---
Exam(s) US THYROID EXAM: US THYROID CLINICAL HISTORY: F/U nodules for change,MULTINODULAR THYROID,E04.2,H/O THY LOBECTOMY,KHLOE. TECHNIQUE: Ultrasound thyroid performed using standard protocol. COMPARISON: US US THYROID from 01/31/2019 US US THYROID from 03/03/2020 US US THYROID from 01/26/2021 US US ABDOMEN LIMITED HEPATOLOGY PROTOCOL from 09/08/2022 FINDINGS: ISTHMUS: 2 mm RIGHT LOBE: Status post right thyroid lobectomy. LEFT LOBE: Size: 4.0 x 1.9 x 1.3 cm Echogenicity: Normal. Vascularity: Normal. Nodules: Lower pole nodule again noted measured at 1.0 x 0.8 x 1.2 cm. Solid, hypoechoic, smoothly m arginated, without echogenic foci, TR 4. 3 x 4 x 7 millimeter spongiform nodule upper pole. OTHER FINDINGS: No adenopathy. IMPRESSION: Nodule at the lower pole of the left lobe of the thyroid is stable since 2019. DATA REPOSITORY:
== END ==
PROVIDERS: PCP Nurse Practitioner Adult Health; Visit Provider Otolaryngology
DX: E04.2 Nontoxic multinodular goiter (principal)
CPT/HCPCS: 76536

== ENCOUNTER 2023-04-28 02:35 | Outpatient (CLI) | payer MEDICARE, BC, SELFPAY ==
[2023-04-28 07:42] LABS: Hemoglobin A1C 6.1 % (<5.7)
[2023-04-28 07:48] LABS: COMMENT (LAB VIEW ONLY) 139.07 mg/dL; Microalb ug/mg Crea 19.6 ug/mg Cr
[2023-04-28 07:58] LABS: ALT 43 U/L (14-59); AST 28 U/L (15-37); Alkaline Phosphatase 75 U/L (46-116); Anion Gap 10.2 mmol/L (3-11); BUN 14 mg/dL (7-18); Bilirubin, Total 0.7 mg/dL (0.2-1.0); CO2 30.8 mmol/L (21.0-32.0); CREATININE 0.9 mg/dL (0.55-1.02); Calcium 9.6 mg/dL (8.5-10.1); Calculated LDL 50 mg/dL (<100); Chloride 100 mmol/L (98-107); Cholesterol 109 mg/dL (<200); Estimated GFR 68.35 (mL/min/1.73m2); Glucose 180 mg/dL (74-106); HDL Cholesterol 40 mg/dL (40-60); Potassium 3.6 mmol/L (3.5-5.1); Sodium 141 mmol/L (136-145); Total Protein 7.5 g/dL (6.4-8.2); Triglyceride 98 mg/dL (<150)
[2023-04-28 08:20] LABS: FREE T4 1.05 ng/dL (0.76-1.46)
== END 2023-04-28 02:36 | disposition home or self-care (01) ==
LOC: LBO 02:35
PROVIDERS: PCP Nurse Practitioner Adult Health; Referring Provider Nurse Practitioner Adult Health; Visit Provider Nurse Practitioner Adult Health
DX: E11.9 Type 2 diabetes mellitus without complications (principal); E03.9 Hypothyroidism, unspecified; I10 Essential (primary) hypertension
CPT/HCPCS: 36415; 80053; 80061; 82043; 82570; 83036; 84439; 84443

== ENCOUNTER 2023-05-01 02:41 | Outpatient (RCR) | payer MEDICARE, BC, SELFPAY ==
[2023-04-20 00:07] VITALS: BP 151/63; PULSE 90; RESP 18
[2023-05-01] MEDS: Normal Saline Flush 10 ML SYR IVP (09:56)
[2023-05-01] MEDS: Acetaminophen 325 MG TAB 650 MG PO (09:56)
[2023-05-01] MEDS: Loratidine 10 MG TAB PO (09:56)
[2023-05-01] MEDS: VEDOLIZUMAB 300 MG in Normal Saline 250 ML 500 MG IVPB (10:36)
== END 2023-05-18 23:59 | disposition home or self-care (01) ==
LOC: INF 02:41
PROVIDERS: PCP Nurse Practitioner Adult Health; Visit Provider Nurse Practitioner Acute Care
DX: K50.90 Crohn's disease, unspecified, without complications (principal)
CPT/HCPCS: 96365; J3380

== ENCOUNTER 2023-05-29 03:02 | Outpatient (RCR) | payer MEDICARE, BC, SELFPAY ==
[2023-05-19 00:18] VITALS: BP 151/63; PULSE 90; RESP 18
[2023-05-29] MEDS: Loratidine 10 MG TAB PO (10:06)
[2023-05-29] MEDS: Acetaminophen 325 MG TAB 650 MG PO (10:06)
[2023-05-29] MEDS: Normal Saline Flush 10 ML SYR IVP (10:06)
[2023-05-29] MEDS: VEDOLIZUMAB 300 MG in Normal Saline 250 ML 500 MG IVPB (11:14)
== END 2023-06-18 23:59 | disposition home or self-care (01) ==
LOC: INF 03:02
PROVIDERS: PCP Nurse Practitioner Adult Health; Visit Provider Nurse Practitioner Acute Care
DX: K50.90 Crohn's disease, unspecified, without complications (principal)
CPT/HCPCS: 96365; J3380

== ENCOUNTER 2023-06-26 03:49 | Outpatient (RCR) | payer MEDICARE, BC, SELFPAY ==
[2023-06-19 00:06] VITALS: BP 151/63; PULSE 90; RESP 18
[2023-06-26] MEDS: Acetaminophen 325 MG TAB 650 MG PO (09:52)
[2023-06-26] MEDS: Loratidine 10 MG TAB PO (09:52)
[2023-06-26] MEDS: Normal Saline Flush 10 ML SYR IVP (09:52)
[2023-06-26] MEDS: VEDOLIZUMAB 300 MG in Normal Saline 250 ML 500 MG IVPB (10:34)
== END 2023-07-18 23:59 | disposition home or self-care (01) ==
LOC: INF 03:49
PROVIDERS: PCP Nurse Practitioner Adult Health; Visit Provider Nurse Practitioner Acute Care
DX: K50.90 Crohn's disease, unspecified, without complications (principal)
CPT/HCPCS: 96365; J3380

== ENCOUNTER 2023-07-13 05:52 | Outpatient (CLI) | payer MEDICARE, BC, SELFPAY ==
[2023-07-13 12:14] LABS: HCT 36.3 % (36.0-46.0); HGB 11.6 g/dL (11.2-15.7); MCH 25.5 pg (27.0-33.0); MCV 80 fL (80-95); MPV 10.5 fL (8.0-11.0); Platelet Count 140 10^3/uL (130-400); RBC 4.55 10^6/uL (3.93-5.22); RDW 15.3 % (11.7-14.6); RDW-SD 43.9 fL; WBC 4.38 10^3/uL (4.4-10.8)
[2023-07-13 12:52] LABS: Ferritin 16 ng/mL (8-252)
[2023-07-13 18:05] LABS: Iron 48 ug/dL (50-170); Total Iron Binding Capacity 421 ug/dL (250-450); Transferrin Sat 11 % (15-50)
== END 2023-07-13 05:53 | disposition home or self-care (01) ==
PROVIDERS: PCP Nurse Practitioner Adult Health; Visit Provider Nurse Practitioner Family
DX: D50.9 Iron deficiency anemia, unspecified (principal)
CPT/HCPCS: 36415; 85027; 82728; 83540; 83550

== ENCOUNTER 2023-07-31 04:35 | Outpatient (RCR) | payer MEDICARE, BC, SELFPAY ==
[2023-07-19 00:05] VITALS: BP 151/63; PULSE 90; RESP 18
[2023-07-24] MEDS: Loratidine 10 MG TAB PO (10:38)
[2023-07-24] MEDS: Acetaminophen 325 MG TAB 650 MG PO (10:38)
[2023-07-24] MEDS: VEDOLIZUMAB 300 MG in Normal Saline 250 ML 500 MG IVPB (10:39)
[2023-07-24] MEDS: Normal Saline Flush 10 ML SYR IVP (11:05)
[2023-07-31] MEDS: methylPREDNISolone SUCC 40 MG VIAL IVP (09:18)
[2023-07-31] MEDS: Normal Saline Flush 10 ML SYR IVP (09:24)
== END 2023-08-18 23:59 | disposition home or self-care (01) ==
LOC: INF 04:35
PROVIDERS: PCP Nurse Practitioner Adult Health; Visit Provider Nurse Practitioner Acute Care
DX: D50.9 Iron deficiency anemia, unspecified (principal)
CPT/HCPCS: 96365; 96374; 96375; J2919; J3380; Q0138

== ENCOUNTER 2023-08-14 10:58 | Emergency (ER) | payer MEDICARE, BC, SELFPAY ==
[2023-08-14 11:00] VITALS: BP 194/49; PULSE 66; RESP 18; TEMP 36.7; O2SAT 96
--- NOTE | 2023-08-14 11:45 | DI.RAD_ITS ---
Exam(s) XR LUMBAR SPINE COMPLETE EXAM: XR LUMBAR SPINE COMPLETE CLINICAL HISTORY: Back Pain. TECHNIQUE: 2D digital imaging was performed. Five views. COMPARISON: CT CT ABDOMEN PELVIS W from 12/25/2019 FINDINGS: BONES: No fracture or destructive lesion. Vertebral body heights are maintained. Small endplate oste ophytes. Mild facet hypertrophy identified. DISKS: Mild narrowing of the L5-S1 disc space. The remaining intervertebral disc spaces are maintain ed. ALIGNMENT: Lumbar spinal alignment is within normal limits. SOFT TISSUE: Vascular calcifications. IMPRESSION: Mild degenerative changes, greatest at L5-S1. DATA REPOSITORY: RADIATION DOSE DELIVERED:
--- NOTE | 2023-08-14 11:58 | W.ED.GENAD ---
Discharge Plan Disposition Patient Disposition: Home Condition: Stable Discharge Details Clinical Impression: Lumbago Primary Care Provider: Grace Becerril ED Provider: Oma Garcia Home Meds and New Rx's Prescriptions: New cyclobenzaprine 10 mg tablet 10 mg PO TID PRN (Reason: muscle spasm) Qty: 10 0RF oxycodone 5 mg capsule 5 mg PO Q8H PRN (Reason: pain) Qty: 4 0RF Rx Instructions: Take 1 capsule by mouth every 8 hours as needed for moderate to severe pain. Please take with food and no driving or operating heavy machinery while on this medication. Continued lorazepam 0.5 mg tablet 0.5 mg SL TID PRN (Reason: anxiety) Qty: 10 0RF Rx Instructions: take 1st tab [place] at airport, repeat with 1/2-1 tab q 4 hrs prn glimepiride 2 mg tablet 2 mg PO QAM Qty: 90 3RF Rx Instructions: administer with breakfast--DOSE REDUCTION 01/30/23 (A1C 5.9%) rosuvastatin 5 mg tablet 5 mg PO .every other night Qty: 45 3RF Victoza 3-Melquiades 0.6 mg/0.1 mL (18 mg/3 mL) pen injector 1.2 mg subcut DAILY Qty: 6 6RF metformin 500 mg tablet 1,000 mg PO BID Qty: 360 3RF metoprolol tartrate 25 mg tablet 25 mg PO BID Qty: 180 3RF losartan-hydrochlorothiazide 100-25 mg tablet 1 tab PO .daily in AM Qty: 90 3RF Rx Instructions: PHARM: Note new COMBINED medication for Pat's BP (stop Losartan & HCTZ individually); 05/08/23 (DME) lancets [OneTouch UltraSoft Lancets] 1 EACH misc 1 ea Miscellaneous DAILY ONETOUCH ULTRA TEST STRIPS 1 EACH strip 1 ea Miscellaneous TID Qty: 300 Rx Instructions: Pt needing to test TID while titrating insulin dose for DM (E11.9) management to have A1c less than 7.5 Entyvio 300 mg recon soln 300 mg IV Q4W Rx Instructions: administer 2nd dose 2 weeks after first dose; administer over 30 minutes, infusions as directed by Dr Robb. changed to every 4 weeks per [facility] 07/01/21 [facility] note levothyroxine 25 mcg capsule 25 mcg PO DAILY Qty: 90 3RF Rx Instructions: Best taken on empty stomach, approx 30-minutes apart from other meds & food omeprazole 20 mg capsule,delayed release(DR/EC) See Rx Instructions .ROUTE .COMPLEX Qty: 90 3RF Dose Instruction: TAKE 1 CAPSULE BY MOUTH DAILY NEEDED FOR GERD Rx Instructions: TAKE 1 CAPSULE BY MOUTH DAILY NEEDED FOR GERD (DME) pen needle, diabetic [BD Ultra-Fine Mini Pen Needle] 31 gauge x 3/16 needle See Rx Instructions .ROUTE .COMPLEX Qty: 100 3RF Dose Instruction: USE TO INJECT INSULIN TO MAINTAIN A1C LESS THAN 7 Rx Instructions: USE TO INJECT INSULIN TO MAINTAIN A1C LESS THAN 7 insulin glargine [Basaglar KwikPen U-100 Insulin] 100 unit/mL (3 mL) insulin pen See Rx Instructions .ROUTE .COMPLEX Qty: 60 6RF Dose Instruction: INJECT 25 UNITS UNDER THE SKIN ONCE DAILY. MAXIMUM DAILY DOSE: 40 UNITS. Rx Instructions: INJECT 25 UNITS UNDER THE SKIN ONCE DAILY. MAXIMUM DAILY DOSE: 40 UNITS. cimetidine 200 mg Tablet 200 mg PO PRN PRN Discharge Instructions Instructions: Low Back Strain (ED) Additional Instructions: Follow up with primary care provider in 3-5 days to discuss further imaging if pain persist including the CT if needed. Take the medications as prescribed. They may make you sleepy. No operating heavy machinery or driving while taking the medication. You may also alternate ice and heat apply lidocaine patches which you can get [id number]. . Return to ED sooner if any worsening pain not relieved by medications or concerns. Referrals: Grace Becerril ULTRASOUND SPECIALIST [Primary Care Provider] - 5 days HPI General Mode of arrival: ambulatory. Date/Time Provider Initiated Documentation: 08/14/23 11:05. Limitations to Documentation: no limitations. Information obtained by: patient, RN notes reviewed and old records reviewed. HPI Narrative: 72-year-old female presents to the ER with a chief complaint of lower back pain which began a week ago after lifting a heavy marble slab she reports is now radiating up into her back. Denies any leg pain, denies any saddle anesthesia loss of bowel or bladder control or numbness or tingling. She does have midline L-spine tenderness on palpation and right paraspinous tenderness with palpation. Has been taking Tylenol and ibuprofen with little to no relief. Past medical history includes type II insulin-dependent diabetes, high cholesterol, GERD, iron deficiency anemia, hiatal hernia. She does not take any aspirin or blood thinners. Denies any falls or any other associated symptoms. Related Data Home Medications Medication Instructions Recorded Confirmed lancets (OneTouch UltraSoft 06/05/12 08/14/23 Lancets) Onetouch Ultra Test Strips 1 ea miscellaneous TID #300 strips 07/11/17 08/14/23 lorazepam 0.5 mg tablet 0.5 mg sublingual TID PRN anxiety 02/20/18 08/14/23 #10 tabs cimetidine 200 mg tablet 200 mg PO PRN PRN 10/26/20 08/14/23 vedolizumab 300 mg intravenous 300 mg IV Q4W 07/05/21 08/14/23 solution (Entyvio) levothyroxine 25 mcg capsule 25 mcg PO DAILY #90 caps 08/22/22 08/14/23 omeprazole 20 mg capsule,delayed See Rx Instructions .Route 03/31/23 08/14/23 release .COMPLEX #90 caps glimepiride 2 mg tablet 2 mg PO QAM #90 tabs 05/08/23 08/14/23 liraglutide 0.6 mg/0.1 mL (18 mg/3 1.2 mg (0.2 mL) subcut DAILY #6 05/08/23 08/14/23 mL) subcutaneous pen injector SYRGS (Victoza 3-Melquiades) losartan 100 1 tab PO .daily in AM #90 tabs 05/08/23 08/14/23 mg-hydrochlorothiazide 25 mg tablet metformin 500 mg tablet 1,000 mg (2 x 500 mg) PO BID #360 05/08/23 08/14/23 tab-caps metoprolol tartrate 25 mg tablet 25 mg PO BID #180 tabs 05/08/23 08/14/23 rosuvastatin 5 mg tablet 5 mg PO .every other night #45 tabs 05/08/23 08/14/23 insulin glargine 100 unit/mL (3 See Rx Instructions .Route 08/10/23 08/14/23 mL) subcutaneous pen (Basaglar .COMPLEX #60 mL KwikPen U-100 Insulin) pen needle, diabetic 31 gauge x #100 ea 08/10/23 08/14/23 3/16 (BD Ultra-Fine Mini Pen Needle) cyclobenzaprine 10 mg tablet 10 mg PO TID PRN muscle spasm #10 08/14/23 tabs oxycodone 5 mg capsule 5 mg PO Q8H PRN pain #4 caps 08/14/23 Previous Rx's Medication Instructions Recorded lorazepam 0.5 mg tablet 0.5 mg sublingual TID PRN anxiety 02/20/18 #10 tabs levothyroxine 25 mcg capsule 25 mcg PO DAILY #90 caps 08/22/22 omeprazole 20 mg capsule,delayed See Rx Instructions .Route 03/31/23 release .COMPLEX #90 caps glimepiride 2 mg tablet 2 mg PO QAM #90 tabs 05/08/23 liraglutide 0.6 mg/0.1 mL (18 mg/3 1.2 mg (0.2 mL) subcut DAILY #6 05/08/23 mL) subcutaneous pen injector SYRGS (Victoza 3-Melquiades) losartan 100 1 tab PO .daily in AM #90 tabs 05/08/23 mg-hydrochlorothiazide 25 mg tablet metformin 500 mg tablet 1,000 mg (2 x 500 mg) PO BID #360 05/08/23 tab-caps metoprolol tartrate 25 mg tablet 25 mg PO BID #180 tabs 05/08/23 rosuvastatin 5 mg tablet 5 mg PO .every other night #45 tabs 05/08/23 insulin glargine 100 unit/mL (3 See Rx Instructions .Route 08/10/23 mL) subcutaneous pen (Basaglar .COMPLEX #60 mL KwikPen U-100 Insulin) pen needle, diabetic 31 gauge x #100 ea 08/10/2306/02 (BD Ultra-Fine Mini Pen Needle) cyclobenzaprine 10 mg tablet 10 mg PO TID PRN muscle spasm #10 08/14/23 tabs oxycodone 5 mg capsule 5 mg PO Q8H PRN pain #4 caps 08/14/23 Allergies Allergy/AdvReac Type Severity Reaction Status Date / Time ciprofloxacin Allergy Intermediate Skin Rash Verified 08/14/23 11:05 lisinopril AdvReac Intermediate cough Verified 08/14/23 11:05 simvastatin AdvReac Intermediate fatigue Verified 08/14/23 11:05 codeine [Codeine] AdvReac nausea/vomi Verified 08/14/23 11:05 ting General Stated Complaint: Orthopedic ANDRES: 4 Review of Systems All systems reviewed & are unremarkable except as noted in HPI and below Musculoskeletal Musculoskeletal: Reports back pain Exam Back/Spine/Pelvis Back: back tenderness Cervical Spine: normal cervical lordosis, No cervical muscular tenderness and No step off deformity Thoracic/Lumbar Spine: thoracic and lumbar spine normal to inspection, bend over test abnormal, thoraco-lumbar spasm (Right paraspinous tenderness noted worse than left.) and lumbar spinal tenderness Pelvis: no pain with anterior-posterior compression Sacrum: no ecchymosis, no erythema and no tenderness Coccyx: no swelling and no tenderness Course Vital Signs Vital signs: Vital Signs Temperature 36.7 C 08/14/23 11:00 Pulse 66 08/14/23 11:00 Respiratory Rate 18 08/14/23 11:00 Blood Pressure 194/49 H 08/14/23 11:00 Pulse Oximetry 96 08/14/23 11:00 Temperature 36.7 C 08/14/23 11:00 Temperature Source Temporal Artery Scan 08/14/23 11:00 Pulse 66 08/14/23 11:00 Respiratory Rate 18 08/14/23 11:00 Respiratory Effort Normal, Non-Labored 08/14/23 11:05 Blood Pressure 194/49 H 08/14/23 11:00 Blood Pressure Position Sitting 08/14/23 11:00 Pulse Oximetry 96 08/14/23 11:00 Oxygen Delivery Method Room Air 08/14/23 11:00 Oxygen Flow Rate 0 08/14/23 11:00 Pain Level 6 08/14/23 11:21 Medical Decision Making 72-year-old female presents to the ER with a chief complaint of lower back pain which began a week ago after lifting a heavy marble slab she reports is now radiating up into her back. Denies any leg pain, denies any saddle anesthesia loss of bowel or bladder control or numbness or tingling. She does have midline L-spine tenderness on palpation and right paraspinous tenderness with palpation. Has been taking Tylenol and ibuprofen with little to no relief. Past medical history includes type II insulin-dependent diabetes, high cholesterol, GERD, iron deficiency anemia, hiatal hernia. She does not take any aspirin or blood thinners. Denies any falls or any other associated symptoms. X-ray L-spine ordered, oxycodone and Flexeril. X-ray shows degenerative changes through S1 on the endplates, atherosclerotic disease. Discussed x-ray results with patient and home care he was treated to be return instructions on discharge papers. Patient discharged in hemodynamically stable condition. Patient reevaluation she reports that her pain has improved since the medications. Will give instructions for follow-up if needed. Patient was given Flexeril and 5 mg oxycodone tablet prescriptions and given 4 tablets to go here in the department due to pharmacy being closed on a holiday. Instructed on oxycodone that she will only take that if she absolutely needs it. I did tell her otherwise take Tylenol or ibuprofen she verbalized understanding. This text was generated using Source MDxation system, please disregard any oddities of phrase or misspellings. Imaging Data Radiologic Study: Imaging: X-Ray Radiologist's impression: Exam: XR Lumbosacral Spine Exam date and time: 08/14/2023 12:58 PM Age: 72 years old Clinical indication: Low back pain TECHNIQUE: Imaging protocol: Radiologic exam of the lumbosacral spine. Views: 4 or 5 views. COMPARISON: CT ABDOMEN PELVIS W 09/27/2019 09:54 FINDINGS: Bones/joints: Multilevel degenerative changes of the spine. Loss of T12 vertebral body height. Decreased bone mineralization. Multilevel facet arthropathy. Disc space narrowing and degenerative changes of the endplate at T12-L1, L1-L2, and L5-S1. The posterior elements are intact. Soft tissues: Unremarkable. Organs: Single calcified gallstone corresponding to CT findings. Vasculature: Atherosclerotic disease. IMPRESSION: No acute findings. For chronic back pain recommend MRI for further evaluation. Thank you for allowing us to participate in the care of your patient. 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 (Acute 02/17/21) MRI angiogram Neck - [facility] Multinodular thyroid (Acute) Bilateral carotid bruits (Acute) Liver cirrhosis secondary to nonalcoholic steatohepatitis (SILVESTRE) (Chronic ~03/2011) Portal hypertension (Acute) Splenomegaly (Chronic) 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 (Acute) [id number]/24/20 Crohn's disease (Chronic ~2019) 07/01/21 [facility] note - of small intestine with intestinal obstruction Iron deficiency anemia (Acute) Iron deficiency anemia due to chronic blood loss--[facility] Hem Onc note 09/21/22 Essential hypertension (Chronic 02/05/13) Diabetes mellitus type 2, controlled, without complications (Chronic 06/07/12) no retinopathy 01/06/14 A1C goal 7.5 Other and unspecified hyperlipidemia (Chronic 06/07/12) PCEq risk 11% LDL baseline 87 Gastroesophageal reflux disease (Chronic 04/12/11) Former cigarette smoker (Acute) Supraventricular tachycardia, paroxysmal (Chronic 06/02/16) Pulmonary nodule (Chronic) Tubular adenoma (Chronic 10/06/15) [facility] 05/2023 Lichen sclerosus et atrophicus (Chronic 07/26/11) 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) Dr Steinberg Epistaxis (08/18/16) Diarrhea (11/20/14) Chronic interstitial cystitis (02/05/13) Dx: Dr Ponce Hiatal hernia GERD (gastroesophageal reflux disease) Lichen sclerosus et atrophicus Premature menopause Diabetes mellitus, type 2 Surgical History History of colonoscopy (~05/2023) [facility]-repeat 3 yrs H/O partial thyroidectomy (~07/2021) Right thyroid lobectomy, April Christensen, benign process 08/27/21 F/U Gen Surgery Posterior subcapsular age-related cataract of left eye Nuclear sclerotic cataract of left eye Posterior subcapsular age-related cataract, right eye Nuclear sclerotic cataract of right eye Endoscopy Upper GI 04/06/18-[facility] Upper GI [id number] Bensen Colonoscopy (10/06/15) Dr Hunter, tubular adenoma, repeat 5 yrs Biopsy of breast (~1992) R benign 1992 Appendectomy 1991 Family History Father Diabetes Sister Diabetes Breast cancer Other Heart disease Personal history of malignant neoplasm Social History Smoking/Tobacco Use Status: Former Tobacco Use Quit Date: 03/20/06 Smoking risk assessment performed?: Yes Alcohol Intake: never Drug use: Never Substance use type: does not use Household members: spouse Housing: house Number of Children: 3 number of grandchildren: 2 current occupation: rertired director from [employer] What is your relationship status?: How often do you talk on the phone with friends or family?: three or more times per week Panel score (0-1 are the most socially isolated patients): 2 What type of physical activity do you participate in: walking Duration: 15-30 minutes/day Frequency: 3-4 times per week Seatbelt use: always Drive intox or ride w/intox cdl bulk driver: No Working smoke detector in home: Yes Fire extinguisher in home: Yes Carbon monox detector in home: Yes Do you feel safe at home: Yes Do you feel safe in your relationship?: Yes Female Reproductive History Menstrual Menopause type: natural History History 3 Para 3 Hx # Term Pregnancies Multiple births Hx # Pregnancies Ectopic pregnancies AB induced Hx Number of Living Children AB spontaneous
[2023-08-14] MEDS: oxyCODONE 5 MG TAB PO (12:18)
[2023-08-14] MEDS: Cyclobenzaprine 10 MG TAB PO (12:18)
[2023-08-14 13:43] VITALS: BP 144/57; PULSE 60; O2SAT 95
--- NOTE | 2023-08-14 13:59 | DI.VRAD_ITS ---
PROCEDURE INFORMATION: Exam: XR Lumbosacral Spine Exam date and time: 08/14/2023 12:58 PM Age: 72 years old Clinical indication: Low back pain TECHNIQUE: Imaging protocol: Radiologic exam of the lumbosacral spine. Views: 4 or 5 views. COMPARISON: CT ABDOMEN PELVIS W 09/27/2019 09:54 FINDINGS: Bones/joints: Multilevel degenerative changes of the spine. Loss of T12 vertebral body height. Decreased bone mineralization. Multilevel facet arthropathy. Disc space narrowing and degenerative changes of the endplate at T12-L1, L1-L2, and L5-S1. The posterior elements are intact. Soft tissues: Unremarkable. Organs: Single calcified gallstone corresponding to CT findings. Vasculature: Atherosclerotic disease. IMPRESSION: No acute findings. For chronic back pain recommend MRI for further evaluation. Dictated and Authenticated by: Miriam Martin MD. Ordering:FIDENCIO Ernandez MD
== END 2023-08-14 14:58 | disposition home or self-care (01) ==
PROVIDERS: Emergency Provider Registered Nurse Emergency; PCP Nurse Practitioner Adult Health
DX: M54.50 Low back pain, unspecified (principal); X50.0XXA Overexertion from strenuous movement or load, initial encounter
CPT/HCPCS: 99283; 72110

== ENCOUNTER 2023-08-28 05:45 | Outpatient (RCR) | payer MEDICARE, BC, SELFPAY ==
[2023-08-19 00:05] VITALS: BP 151/63; PULSE 90; RESP 18
[2023-08-28] MEDS: Loratidine 10 MG TAB PO (13:15)
[2023-08-28] MEDS: Acetaminophen 325 MG TAB 650 MG PO (13:15)
[2023-08-28 13:54] LABS: HCT 37.7 % (36.0-46.0); HGB 12.2 g/dL (11.2-15.7); MCH 27.5 pg (27.0-33.0); MCHC 32.4 % (32.0-36.0); MCV 85 fL (80-95); MPV 10.3 fL (8.0-11.0); Platelet Count 132 10^3/uL (130-400); RBC 4.44 10^6/uL (3.93-5.22); RDW 17.8 % (11.7-14.6); RDW-SD 55.5 fL
[2023-08-28] MEDS: VEDOLIZUMAB 300 MG in Normal Saline 250 ML 500 MG IVPB (14:01)
[2023-08-28] MEDS: Normal Saline Flush 10 ML SYR IVP (14:02)
[2023-08-28 14:09] LABS: ALT 45 U/L (14-59); AST 23 U/L (15-37); Albumin 3.7 g/dL (3.4-5.0); Alkaline Phosphatase 85 U/L (46-116); Bilirubin, Direct 0.3 mg/dL (0.0-0.2); Bilirubin, Total 0.7 mg/dL (0.2-1.0); C-Reactive Protein 0.74 mg/dL (<or=0.5); Total Protein 6.6 g/dL (6.4-8.2)
== END 2023-09-17 23:59 | disposition home or self-care (01) ==
LOC: INF 05:45
PROVIDERS: PCP Nurse Practitioner Adult Health; Visit Provider Nurse Practitioner Acute Care
DX: K50.90 Crohn's disease, unspecified, without complications (principal)
CPT/HCPCS: 36415; 80076; 85027; 96365; 86140; J3380

== ENCOUNTER → 2023-08-29 04:06 | Outpatient (CLI) | payer MEDICARE, BC, SELFPAY ==
--- NOTE | 2023-08-29 06:45 | DI.MAMMO_ITS ---
Exam(s) MG MAMMO DIAGNOSTIC UNI EXAM: MG MAMMO DIAGNOSTIC UNI CLINICAL HISTORY: 6 mo f/u, f/u abnl mammo,lt nodule. TECHNIQUE: Craniocaudal and mediolateral oblique Full Field Digital Mammography views of the left br east with Computer Aided Diagnosis followed by Tomosynthesis. COMPARISON: Comparison is made with prior examinations. FINDINGS: Mammography/Tomosynthesis: Masses/Architectural Distortion: The small nodule in the outer left breast appears stable. No new no dules are seen. No areas of architectural distortion are present. Microcalcifictions: No suspicious pleomorphic-type are seen. Skin Thickening/Nipple Retraction: None. IMPRESSION: 1. No evidence of malignancy is noted. 2. Unless there is more urgent need, follow-up screening mammography is recommended, as per [place] [employer] guidelines. 3. The findings were discussed with the patient on the date of the examination. BI-RADS Category 2 - Benign Findings Breast Density - Category B - Scattered areas of fibroglandular density Breast density Category C or D implies that the patient has dense breast tissue. Dense breast tissue can make it harder to find cancer on a mammogram. Dense breast tissue is also associated with an incr eased risk of breast cancer. This information about the result of the mammogram report was provided to the patient to raise their awareness. Use this report when you speak with the patient about their risks for breast cancer, which includes their family history. At that time, you may recommend additional screening tests (Ultrasoun d or MRI) as these tests may add significant information. A negative radiographic report should not delay biopsy if a dominant or clinically suspicious mass is present. Up to ten percent of cancers are not identified on mammography. A negative report may reinforce clinical impression. Adenosis and dense breasts may obscure an underlying neoplasm. False positive reports average 6 to 10%. Patient will receive a letter notifying them of these results.
== END ==
PROVIDERS: PCP Nurse Practitioner Adult Health; Visit Provider Nurse Practitioner Adult Health
DX: R92.8 Other abnormal and inconclusive findings on diagnostic imaging of breast (principal); N60.82 Other benign mammary dysplasias of left breast
CPT/HCPCS: 77061; 77065; G0279

== ENCOUNTER 2023-08-30 20:12 | Inpatient (IN) | payer MEDICARE, BC, SELFPAY ==
--- NOTE | 2023-08-30 20:15 | DI.CT_ITS ---
Exam(s) CT ABDOMEN PELVIS WO/W EXAM: CT ABDOMEN PELVIS WO/W CLINICAL HISTORY: CT renal wo > CT ABD w/ - severe abd pain TECHNIQUE: Imaging Protocol: Axial computed tomography images with coronal and sagittal reformatted images were created and reviewed. CONTRAST MATERIAL: Intravenous: Omnipaque 350 Contrast volume:100 mL Oral: No COMPARISON: CT RENAL COLIC WO CONTRAST from 10/21/[address] chest PE abd pelvis w from 03/24/[address] ABDOMEN PELVIS W from 12/25/2019 CR,XR XR LUMBAR SPINE COMPLETE from 08/14/2023 FINDINGS: ABDOMEN: Lung Bases: There is a stable right middle lobe pulmonary nodule. No acute pulmonary infiltrates are seen. Liver: The liver has a nodular contour suspicious for hepatic cirrhosis. The liver measures 20 cm lo ng. Area of decreased attenuation in the medial aspect of the posterior segment of the right lobe of the liver (series 9, image 108). This is unchanged compared to the CT scan from 12/25/2019. Further evaluation with an MRI of the abdomen without and with contrast may be obtained. Portal, Superior Mesenteric, and Splenic Veins: Unremarkable. Gallbladder and Biliary Tract: Cholelithiasis. The gallbladder is contracted. No biliary ductal dil atation. Pancreas: Normal density, no abnormal calcifications or inflammatory process. Spleen: Splenomegaly. Adrenals: No masses seen. Kidneys: Normal size, contour and axis. No radiodense stones or obstructive uropathy. There is a simp le cyst in the superior pole of the right kidney. No follow-up is recommended. Abdominal Aorta: Abdominal portion non-dilated. Atherosclerotic calcification is present. There is m arked stenosis of the proximal right common iliac artery. Bowel: There is diverticulosis seen in the colon but no evidence of acute diverticulitis. There is n o evidence of bowel obstruction. Mild bowel wall thickening is seen in loops of small bowel in the l eft abdomen. No evidence of appendicitis. Peritoneal Cavity: There is a small amount of ascites in the pelvis. No free air. Lymph Nodes: There are enlarged lymph nodes seen in the upper abdomen. The largest lymph node is see n anterior to the IVC and measures 1.7 x 2.6 cm. Bones: Within normal limits for the patient's age. There is a new compression fracture of the superi or endplate of T12. There is loss of 20 percent of the height of the vertebral body anteriorly. Soft Tissues: Unremarkable. PELVIS: Bladder: Symmetric distention, no gross wall thickening. Reproductive Organs: Unremarkable as visualized. Lymph Nodes: Within normal limits. Bones: Within normal limits for the patient's age. IMPRESSION: 1. Hepatic cirrhosis, hepatosplenomegaly and small amount of abdominal ascites suggesting portal veno us hypertension. 2. Upper abdominal adenopathy. This may be related to the hepatic cirrhosis. 3. New compression fracture of the superior endplate of T12 with loss of approximately 20 percent of the height of the vertebral body. There is mild exaggeration of the kyphosis at this level. 4. Mild wall thickening in loops of small bowel in the left abdomen. Differential considerations inc lude enteritis or sequela related to the portal venous hypertension. 5. Cholelithiasis. No biliary ductal dilatation. RADIATION DOSE DELIVERED: 1,669.47mGy.cm Total DLP 1,669.47mGy.cm Total DLP DATA REPOSITORY: All CT scans at this facility are submitted to the National Radiology Data Registry (NRDR) Dose Index Registry (DIR) with the [employer] (ACR). RADIATION OPTIMIZATION: All CT scans at this facility use at least one of these dose optimization te chniques: automated exposure control; mA and/or kV adjustment per patient size (includes targeted exa ms where dose is matched to clinical indication); or iterative reconstruction.
[2023-08-30 20:17] VITALS: BP 103/75; PULSE 79; RESP 14; TEMP 36.8; O2SAT 98
--- NOTE | 2023-08-30 20:22 | W.ED.GENAD ---
Discharge Plan Disposition Patient Disposition: Admit to [facility] Condition: Stable Discharge Details Clinical Impression: Enteritis, Sepsis Primary Care Provider: Grace Becerril ED Provider: Harry Lama Home Meds and New Rx's Prescriptions: New cephalexin 500 mg capsule 500 mg PO QID 10 Days Qty: 40 0RF Continued lorazepam 0.5 mg tablet 0.5 mg SL TID PRN (Reason: anxiety) Qty: 10 0RF Rx Instructions: take 1st tab [place] arrival at airport, repeat with 1/2-1 tab q 4 hrs prn methocarbamol 500 mg tablet 500 - 1,000 mg PO TID PRN (Reason: back muscle spasm) Qty: 40 0RF glimepiride 2 mg tablet 2 mg PO QAM Qty: 90 3RF Rx Instructions: administer with breakfast--DOSE REDUCTION 01/30/23 (A1C 5.9%) rosuvastatin 5 mg tablet 5 mg PO .every other night Qty: 45 3RF Victoza 3-Melquiades 0.6 mg/0.1 mL (18 mg/3 mL) pen injector 1.2 mg subcut DAILY Qty: 6 6RF metformin 500 mg tablet 1,000 mg PO BID Qty: 360 3RF metoprolol tartrate 25 mg tablet 25 mg PO BID Qty: 180 3RF losartan-hydrochlorothiazide 100-25 mg tablet 1 tab PO .daily in AM Qty: 90 3RF Rx Instructions: PHARM: Note new COMBINED medication for Pat's BP (stop Losartan & HCTZ individually); 05/08/23 (DME) lancets [OneTouch UltraSoft Lancets] 1 EACH misc 1 ea Miscellaneous DAILY ONETOUCH ULTRA TEST STRIPS 1 EACH strip 1 ea Miscellaneous TID Qty: 300 Rx Instructions: Pt needing to test TID while titrating insulin dose for DM (E11.9) management to have A1c less than 7.5 Entyvio 300 mg recon soln 300 mg IV Q4W Rx Instructions: administer 2nd dose 2 weeks after first dose; administer over 30 minutes, infusions as directed by Dr Robb. changed to every 4 weeks per [facility] 07/01/21 [facility] note omeprazole 20 mg capsule,delayed release(DR/EC) See Rx Instructions .ROUTE .COMPLEX Qty: 90 3RF Dose Instruction: TAKE 1 CAPSULE BY MOUTH DAILY NEEDED FOR GERD Rx Instructions: TAKE 1 CAPSULE BY MOUTH DAILY NEEDED FOR GERD (DME) pen needle, diabetic [BD Ultra-Fine Mini Pen Needle] 31 gauge x 3/16 needle See Rx Instructions .ROUTE .COMPLEX Qty: 100 3RF Dose Instruction: USE TO INJECT INSULIN TO MAINTAIN A1C LESS THAN 7 Rx Instructions: USE TO INJECT INSULIN TO MAINTAIN A1C LESS THAN 7 insulin glargine [Basaglar KwikPen U-100 Insulin] 100 unit/mL (3 mL) insulin pen See Rx Instructions .ROUTE .COMPLEX Qty: 60 6RF Dose Instruction: INJECT 25 UNITS UNDER THE SKIN ONCE DAILY. MAXIMUM DAILY DOSE: 40 UNITS. Rx Instructions: INJECT 25 UNITS UNDER THE SKIN ONCE DAILY. MAXIMUM DAILY DOSE: 40 UNITS. levothyroxine 25 mcg tablet See Rx Instructions .ROUTE .COMPLEX Qty: 90 3RF Dose Instruction: TAKE ONE TABLET BY MOUTH DAILY ON AN EMPTY STOMACH APPROXIMATELY 30 MINUTES APART FROM OTHER MEDICATIONS AND FOOD Rx Instructions: TAKE ONE TABLET BY MOUTH DAILY ON AN EMPTY STOMACH APPROXIMATELY 30 MINUTES APART FROM OTHER MEDICATIONS AND FOOD cimetidine 200 mg Tablet 200 mg PO PRN PRN Discharge Instructions Instructions: Crohn disease in adults, Viral gastroenteritis in adults, Cephalexin Additional Instructions: You were seen in the emergency department for your abdominal pain that was intense in the upper abdomen that almost completely resolved while here in the emergency department, your CT scan shows no emergent pathology does show enteritis which could possibly be a viral gastroenteritis stomach bug. This could be the start of a Crohn's flare and you also have a UTI on urinalysis, you had a mildly elevated lactate of 2.8 we repeated this and it showed improvement, due to your cirrhosis lactate is not a definitive marker of sepsis as some people with chronic liver dysfunction do not clear there lactate. You had no elevation of white blood cells and your metabolic panel is benign, he had a mild elevation of lipase indicating an element of possible very mild pancreatitis-which will resolve with clear fluid diet and bowel rest. We discussed these results and are going to treat your UTI, you received IV antibiotics here in the department and I did send along with Matthew to [facility] in [place] for you to fill tomorrow. Please return to the emergency department for any severe increase in abdominal pain, intractable nausea or vomiting, tachycardia, overt fevers, black bloody stools, complete constipation without passing of any gas whatsoever and increasing abdominal pain. Referrals: Grace Becerril NP [Primary Care Provider] - HPI General Date/Time Provider Initiated Documentation: 08/30/23 20:20. HPI Narrative: 72 year-old male presents to ED today by POV/ambulating with her with a chief complaint of upper abdominal pain, worsening throughout the day with onset around 1500- becoming severe. Quality described as upper abdominal pain in epigastric region- has chronic Crohn's, no radiation to fever but does feel hot, denies URI/shortness of breath, denies palpitations/dizziness, denies chest pain, denies syncope, denies black/bloody stools- had diarrhea which is normal after her Crohn's infusions which was days ago. Severity is described as 8-9/10. Palliating factors include nothing specific. Provoking factors include nothing specific. Events leading up to the incident/Associated Symptoms: Patient does have history of appendectomy in remote past, denies other abdominal surgeries. Patient not anticoagulated. Related Data Home Medications Medication Instructions Recorded Confirmed lancets (Plan [employer] DrinkTouch UltraSoft 06/05/12 08/30/23 Lancets) [employer] Ultra Test Strips 1 ea miscellaneous TID #300 strips 07/11/17 08/30/23 lorazepam 0.5 mg tablet 0.5 mg sublingual TID PRN anxiety 02/20/18 08/30/23 #10 tabs cimetidine 200 mg tablet 200 mg PO PRN PRN 10/26/20 08/30/23 vedolizumab 300 mg intravenous 300 mg IV Q4W 07/05/21 08/30/23 solution (Entyvio) omeprazole 20 mg capsule,delayed See Rx Instructions .Route 03/31/23 08/30/23 release .COMPLEX #90 caps glimepiride 2 mg tablet 2 mg PO QAM #90 tabs 05/08/23 08/30/23 liraglutide 0.6 mg/0.1 mL (18 mg/3 1.2 mg (0.2 mL) subcut DAILY #6 05/08/23 08/30/23 mL) subcutaneous pen injector SYRGS (Victoza 3-Melquiades) losartan 100 1 tab PO .daily in AM #90 tabs 05/08/23 08/30/23 mg-hydrochlorothiazide 25 mg tablet metformin 500 mg tablet 1,000 mg (2 x 500 mg) PO BID #360 05/08/23 08/30/23 tab-caps metoprolol tartrate 25 mg tablet 25 mg PO BID #180 tabs 05/08/23 08/30/23 rosuvastatin 5 mg tablet 5 mg PO .every other night #45 tabs 05/08/23 08/30/23 insulin glargine 100 unit/mL (3 See Rx Instructions .Route 08/10/23 08/30/23 mL) subcutaneous pen (Basaglar .COMPLEX #60 mL KwikPen U-100 Insulin) pen needle, diabetic 31 gauge x #100 ea 08/10/23 08/30/23/16 (BD Ultra-Fine Mini Pen Needle) levothyroxine 25 mcg tablet See Rx Instructions .Route 08/16/23 08/30/23 .COMPLEX #90 tabs methocarbamol 500 mg tablet 500 - 1,000 mg (1 - 2 x 500 mg) PO 08/17/23 08/30/23 TID PRN back muscle spasm #40 tabs cephalexin 500 mg capsule 500 mg PO QID UTI 10 days #40 caps 08/30/23 Previous Rx's Medication Instructions Recorded lorazepam 0.5 mg tablet 0.5 mg sublingual TID PRN anxiety 02/20/18 #10 tabs omeprazole 20 mg capsule,delayed See Rx Instructions .Route 03/31/23 release .COMPLEX #90 caps glimepiride 2 mg tablet 2 mg PO QAM #90 tabs 05/08/23 liraglutide 0.6 mg/0.1 mL (18 mg/3 1.2 mg (0.2 mL) subcut DAILY #6 05/08/23 mL) subcutaneous pen injector SYRGS (Victoza 3-Melquiades) losartan 100 1 tab PO .daily in AM #90 tabs 05/08/23 mg-hydrochlorothiazide 25 mg tablet metformin 500 mg tablet 1,000 mg (2 x 500 mg) PO BID #360 05/08/23 tab-caps metoprolol tartrate 25 mg tablet 25 mg PO BID #180 tabs 05/08/23 rosuvastatin 5 mg tablet 5 mg PO .every other night #45 tabs 05/08/23 insulin glargine 100 unit/mL (3 See Rx Instructions .Route 08/10/23 mL) subcutaneous pen (Basaglar .COMPLEX #60 mL KwikPen U-100 Insulin) pen needle, diabetic 31 gauge x #100 ea 08/10/23/ (BD Ultra-Fine Mini Pen Needle) levothyroxine 25 mcg tablet See Rx Instructions .Route 08/16/23 .COMPLEX #90 tabs methocarbamol 500 mg tablet 500 - 1,000 mg (1 - 2 x 500 mg) PO 08/17/23 TID PRN back muscle spasm #40 tabs cephalexin 500 mg capsule 500 mg PO QID UTI 10 days #40 caps 08/30/23 Allergies Allergy/AdvReac Type Severity Reaction Status Date / Time ciprofloxacin Allergy Intermediate Skin Rash Verified 08/30/23 20:19 lisinopril AdvReac Intermediate cough Verified 08/30/23 20:19 simvastatin AdvReac Intermediate fatigue Verified 08/30/23 20:19 codeine [Codeine] AdvReac nausea/vomi Verified 08/30/23 20:19 ting General Stated Complaint: Abd Prob ANDRES: 3 Review of Systems All systems reviewed & are unremarkable except as noted in HPI and below Exam Narrative Exam Narrative: GENERAL APPEARANCE: Well-nourished, non-toxic, awake and alert, atraumatic, no acute distress. SKIN: Warm, pink, dry, intact, without rashes/lesions/ulcerations. HEAD: Normocephalic, atraumatic, normal hair distribution for gender/age. EYES: Pupils PERRLA, EOMs intact without nystagmus, normal conjunctiva, no exudates on lids/lashes. ENT: Nares patent, no circumoral cyanosis, no facial swelling NECK: Supple, trachea midline, painless cervical ROM. LUNGS/CHEST: Lungs CTA bilaterally- no rhonchi/rales/wheezes diffusely, non-labored respirations, normal A/P diameter, symmetrical expansion, no chest wall deformity HEART (CV/PV): Regular rate and rhythm without murmur, no peripheral edema, no JVD. ABDOMEN: Soft, distended, no guarding, severe exquisite epigastric tenderness with Spann's sign, negative McBurney's point tenderness, L CVA tenderness to percussion, +Rovsing's with palpation of all quadrants to epigastrum. MSK: Normal ROM, no swelling/deformity to bilateral UEs or LEs, moving all extremities without weakness, no cyanosis, spine midline without tenderness, normal curvature. NEURO: Mental Status AAOx4 - alert to person, place, time, events No facial droop, no forehead involvement. Motor: No focal weakness - strength 5/5 in bilateral UEs and LEs, proximal and distal, symmetric. Sensory: sensation intact to light touch globally. Gait normal: patient ambulated without ataxia into ED room. PSYCH: euthymic, cooperative, pleasant, appropriate speech Course Vital Signs Vital signs: Vital Signs Temperature 36.8 C 08/30/23 20:17 Pulse 79 08/30/23 20:17 Respiratory Rate 14 08/30/23 20:17 Blood Pressure 103/75 08/30/23 20:17 Pulse Oximetry 98 08/30/23 20:17 Temperature 36.8 C 08/30/23 20:17 Pulse 79 08/30/23 20:17 Respiratory Rate 14 08/30/23 20:17 Blood Pressure 103/75 08/30/23 20:17 Pulse Oximetry 98 08/30/23 20:17 Pain Level 8 08/30/23 20:17 Medical Decision Making This dictation utilizes [id number] dictation software and may contain unedited grammatical errors. 72 year-old male presents to ED today by POV/ambulating with her with a chief complaint of upper abdominal pain, worsening throughout the day with onset around 1500- becoming severe. Quality described as upper abdominal pain in epigastric region- has chronic Crohn's, no radiation to fever but does feel hot, denies URI/shortness of breath, denies palpitations/dizziness, denies chest pain, denies syncope, denies black/bloody stools- had diarrhea which is normal after her Crohn's infusions which was days ago. Severity is described as 8-9/10. Palliating factors include nothing specific. Provoking factors include nothing specific. Events leading up to the incident/Associated Symptoms: Patient does have history of appendectomy in remote past, denies other abdominal surgeries. Patients' medical history: Iron deficiency anemia, ascites, cholelithiasis, DERRELL, pyelonephritis, T2DM, subclavian steal syndrome, liver cirrhosis, portal hypertension, esophageal varices, Crohn's disease, hypertension, guttate psoriasis. Family and social history: noncontributory. Pertinent exam findings / vital signs include ABDOMEN: Soft, distended, no guarding, severe exquisite epigastric tenderness with Spann's sign, negative McBurney's point tenderness, L CVA tenderness to percussion, +Rovsing's with palpation of all quadrants to epigastrum. Nontoxic vitals, benign cardiopulmonary status. Differential / pathologies of concern include biliary colic, renal colic, SBO, PUD, less likely SBP, perforated viscus, Crohn's flare. Diagnostic studies of: -CBC, BMP, LFTs, CRP/ESR, troponin I, lactate, procalcitonin, lipase, urinalysis, blood Cx's, CT ABD/pelvis with W&WO contrast. -CBC shows no leukocytosis, mildly low lymphocytes, no anemia -CRP mildly elevated at 1.88, ESR within normal limits -Lactate 2.8, procalcitonin <0.1 - suspect she may not clear lactate with her liver pathology -Lipase mildly elevated at 98 -Troponin negative -UA sample not given at sign-out -Blood Cx's pending -CT shows possible enteritis, cirrhosis with trace ascites, subcutaneous fat stranding which is congruent with recent medication injection with her infusion recently Interventions of: -1L IVF NS, IV APAP, IV ketorlac, 4.5gm IV Zosyn. ED Course/Assessment/Plan: 72-year-old female presents with progressive upper abdominal pain, severe, has chronic ascites but question of Rovsing's on physical exam, has an elevated lactate of 2.8 but in the setting of cirrhosis she may be someone who does not clear their lactate, she does not have a elevated white count and her CRP is only mildly elevated, procalcitonin is negative I do not suspect sepsis without any pathology seen on CT, she does have a significant UTI but is asymptomatic, we discussed this and we are going to treat this UTI but I recommend she follow-up with urology for further UTI management and possible colonization of asymptomatic UTI. Her exam almost completely improved after Zosyn and IV fluids have been given to a point where I think it is reasonable for discharge with an improving or stable lactate that she discharge home and treat for possible enteritis with watchful waiting, antibiotics for UTI. Patients' lactate did increas to 3.0 and I do feel she needs admission out of an abundance of caution, will add CXR at this time for infection search, but UTI is possible source though this is confounding with the patients stated complaint of abdominal pain that resolved. -Discussed with Dr. Sarah we both feel that the rising lactate is a concern and that she may need repeat of lipase as well as urine, I did add a chest x-ray to check for any transudative pleural effusion, perhaps she will have a reassuring workup tomorrow morning and may need further liver ultrasound for hypoattenuating region seen on CT but at this point I think the safest thing to do is admit the patient for likely sepsis with further infection search to follow. We may need to cover SBP but unlikely to get a good diagnostic tap with only trace ascites. Patient accepted for admission at 2300. Findings not consistent with perforated viscus, obstructive pathology to the biliary or ureteral tracts, SBO, spontaneous bacterial peritonitis, severe Crohn's flare. Disposition of enteritis. Patient verbalized understanding of the plan and return to ED criteria and engaged in shared decision making. Medical Records Medical records reviewed: Yes I reviewed the patient's medical records. Imaging Data Radiologic Study: Attestation: I personally reviewed and interpreted this imaging study as follows: Imaging: CT Scan Radiologist's impression: Exam: CT Abdomen And Pelvis Without And With Contrast Exam date and time: 08/30/2023 21:34 Age: 72 years old Clinical indication: Other: CT renal wo > CT abd w/ - severe abd pain; Abdominal pain TECHNIQUE: Imaging protocol: Computed tomography of the abdomen and pelvis without and with contrast. Contrast material: OMNI 350; Contrast volume: 100 ml; Contrast route: INTRAVENOUS (IV); COMPARISON: CT ABDOMEN PELVIS W 12/25/2019 09:54 FINDINGS: Liver: Nodular liver. Hypoattenuating subcentimeter right hepatic region is indeterminate on this phase of imaging with hepatocellular carcinoma not excluded. Follow-up as per institutional protocol. Gallbladder and bile ducts: Cholelithiasis. No significant biliary dilation or radiopaque stones in the biliary tree. Pancreas: No ductal dilation. Spleen: Splenomegaly. No focal splenic lesions. Adrenal glands: No mass. Kidneys and ureters: No nephrolithiasis or collecting system obstruction. Stomach and bowel: Mild wall thickening of left-sided small bowel loops. No significant appearing obstructive process in GI tract. Appendix: No evidence of appendicitis. Intraperitoneal space: No free air. No significant fluid collection. Vasculature: Dilated patent portal vein. Dilated splenic vein. Gastroesophageal varices. No aortic aneurysm. Trace pelvic free fluid probably portal hypertension related. Lymph nodes: Enlarged portacaval lymph node favor cirrhosis related. Urinary bladder: Unremarkable as visualized. Reproductive: Unremarkable as visualized. Bones/joints: Chronic appearing mild loss of height superior T12 endplate. The bones are demineralized for age. Soft tissues: Foci of mild inflammatory stranding in the ventral abdominal subcutaneous fat, likely from medication injection. IMPRESSION: 1. Cirrhosis. 2. Portal hypertension. Trace ascites. Splenomegaly. Gastroesophageal varices. 3. Mild wall thickening of left-sided small bowel loops. Favor portal enteropathy over infectious or inflammatory enteritis. 4. Additional findings as described. Dictated and Authenticated by: Nata Heredia MD. Ordering:MARIUM Mcdonald MD Lab Data Lab results reviewed: Yes I reviewed the patient's lab results. Labs: 08/30/23 21:25 Blood Blood Culture - Pending 08/30/23 21:03 Blood Blood Culture - Pending Laboratory Tests Range/Units 08/30/23 08/30/23 08/30/23 20:38 20:40 22:00 WBC (4.4-10.8) 10^3/uL 8.25 RBC (3.93-5.22) 10^6/uL 4.43 Hgb (11.2-15.7) g/dL 12.2 Hct (36.0-46.0) % 37.4 MCV (80-95) fL 84 MCH (27.0-33.0) pg 27.5 MCHC (32.0-36.0) % 32.6 RDW (11.7-14.6) % 17.5 H Plt Count (130-400) 10^3/uL 141 MPV (8.0-11.0) fL 10.4 Immature Gran % % 0.5 Neutrophils % % 79.5 Lymphocytes % % 12.4 Monocytes % % 6.1 Eosinophils % % 1.1 Basophils % % 0.4 Nucleated RBC % (0.0-0.3) % 0.0 Absolute Neutrophils (1.2-6.7) 10^3/uL 6.57 Absolute Lymphocytes (1.2-3.4) 10^3/uL 1.02 L Absolute Monocytes (0.1-0.8) 10^3/uL 0.50 Absolute Eosinophils (0.0-0.7) 10^3/uL 0.09 Absolute Basophils (0.0-0.2) 10^3/uL 0.03 ESR (0-30) mm/hr 20 VBG Lactate (0.6-1.4) mmol/L 2.8 H* Sodium (136-145) mmol/L 141 Potassium (3.5-5.1) mmol/L 3.7 Chloride (98-107) mmol/L 102 Carbon Dioxide (21.0-32.0) mmol/L 27.0 Anion Gap (3-11) mmol/L 12.0 H BUN (7-18) mg/dL 19 H Creatinine (0.55-1.02) mg/dL 1.0 Est GFR (CKD-EPI 2020) (mL/min/1.73m2) 60.23 Glucose (74-106) mg/dL 214 H Calcium (8.5-10.1) mg/dL 9.2 Total Bilirubin (0.2-1.0) mg/dL 0.7 Conjugated Bilirubin (0.0-0.2) mg/dL 0.3 H AST (15-37) U/L 13 L ALT (14-59) U/L 38 Alkaline Phosphatase (46-116) U/L 92 Troponin I (< or =60) ng/L < 50 C-Reactive Protein (<or=0.5) mg/dL 1.88 H Total Protein (6.4-8.2) g/dL 7.4 Albumin (3.4-5.0) g/dL 3.9 Lipase (16-77) U/L 98 H Procalcitonin ng/mL < 0.1 Urine Color (Yellow) Yellow Urine Clarity (Clear) Sl Cloudy Urine pH (5-8) 5.5 Ur Specific [place] (1.005-1.025) 1.010 Urine Protein (Neg-Trace) mg/dL Negative Urine Ketones (Negative) mg/dL Negative Urine Blood (Negative) Trace-intact H Urine Nitrite (Negative) Negative Urine Bilirubin (Negative) Negative Urine Urobilinogen (Up to 0.2) mg/dL 0.2 Ur Leukocyte Esterase (Negative) Small H Urine RBC (0-2) HPF Urine WBC (0-5) HPF >50 H Ur Epithelial Cells (Negative) HPF Moderate Urine Crystals (Negative) HPF Negative Urine Bacteria (Negative) HPF Moderate Urine Mucus (Negative) Negative Ur Culture Indicated? No/Sq. Contamination Urine Glucose (Negative) mg/dL Negative Quality:SDOH Health Related Social Needs: No Data to Display PFSH All Active Problems (Updated 08/30/23 @ 23:03 by DANIELLE Siddiqui) Sepsis (Acute) Enteritis (Acute) Lumbago (Acute) Abnormal mammogram (Acute) Hypothyroidism (Chronic) s/p R partial thyroidectomy Arteriosclerosis of both carotid arteries (Acute) 08/31/21 [facility] Vascular, f/u in 1 year 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 (Acute 02/17/21) MRI angiogram Neck - [facility] Multinodular thyroid (Acute) Bilateral carotid bruits (Acute) Liver cirrhosis secondary to nonalcoholic steatohepatitis (SILVESTRE) (Chronic ~03/2011) Portal hypertension (Acute) Splenomegaly (Chronic) 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 (Acute) [id number]/24/20 Crohn's disease (Chronic ~2018) 07/01/21 [facility] note - of small intestine with intestinal obstruction Iron deficiency anemia (Acute) Iron deficiency anemia due to chronic blood loss--[facility] Hem Onc note 09/21/22 Essential hypertension (Chronic 02/05/13) Diabetes mellitus type 2, controlled, without complications (Chronic 06/07/12) no retinopathy 01/06/14 A1C goal 7.5 Other and unspecified hyperlipidemia (Chronic 06/07/12) PCEq risk 11% LDL baseline 87 Gastroesophageal reflux disease (Chronic 04/12/11) Former cigarette smoker (Acute) Supraventricular tachycardia, paroxysmal (Chronic 06/02/16) Pulmonary nodule (Chronic) Tubular adenoma (Chronic 10/06/15) [facility] 05/2023 Lichen sclerosus et atrophicus (Chronic 07/26/11) 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) Dr Steinberg Epistaxis (08/18/16) Diarrhea (11/20/14) Chronic interstitial cystitis (02/05/13) Dx: Dr Ponce Hiatal hernia GERD (gastroesophageal reflux disease) Lichen sclerosus et atrophicus Premature menopause Diabetes mellitus, type 2 Surgical History History of colonoscopy (~05/2023) [facility]-repeat 3 yrs H/O partial thyroidectomy (~07/2021) Right thyroid lobectomy, April Christensen, benign process 08/27/21 F/U Gen Surgery Posterior subcapsular age-related cataract of left eye Nuclear sclerotic cataract of left eye Posterior subcapsular age-related cataract, right eye Nuclear sclerotic cataract of right eye Endoscopy Upper GI 04/06/18[place] [place] [id number] [place] Colonoscopy (10/06/15) Dr Hunter, tubular adenoma, repeat 5 yrs Biopsy of breast (~1992) R benign 1992 Appendectomy 1991 Family History Father Diabetes Sister Diabetes Breast cancer Other Heart disease Personal history of malignant neoplasm Social History Smoking/Tobacco Use Status: Former Tobacco Use Quit Date: 03/20/06 Smoking risk assessment performed?: Yes Alcohol Intake: never Drug use: Never Substance use type: does not use Household members: spouse Housing: house Number of Children: 3 number of grandchildren: 2 current occupation: rertired director from [employer] What is your relationship status?: How often do you talk on the phone with friends or family?: three or more times per week Panel score (0-1 are the most socially isolated patients): 2 What type of physical activity do you participate in: walking Duration: 15-30 minutes/day Frequency: 3-4 times per week Seatbelt use: always Drive intox or ride w/intox bottom hoop driver: No Working smoke detector in home: Yes Fire extinguisher in home: Yes Carbon monox detector in home: Yes Do you feel safe at home: Yes Do you feel safe in your relationship?: Yes Female Reproductive History Menstrual Menopause type: natural History History 3 Para 3 Hx # Term Pregnancies Multiple births Hx # Pregnancies Ectopic pregnancies AB induced Hx Number of Living Children AB spontaneous
[2023-08-30] MEDS: Normal Saline 1,000 ML 1000 ML IV (20:47)
[2023-08-30] MEDS: ACETAMINOPHEN 1,000 MG/100 ML BTL 400 MG IVPB (20:47)
[2023-08-30] MEDS: Ketorolac 15 MG/ML VIAL IVP (20:48)
[2023-08-30 20:53] VITALS: BP 103/75; PULSE 79; RESP 14; TEMP 36.8; O2SAT 98
[2023-08-30 20:54] LABS: Lactate 2.8 mmol/L (0.6-1.4)
[2023-08-30 20:59] LABS: Abs Immature Grans 0.04 10^3/uL (0.0-0.06); Absolute Basophil Count 0.03 10^3/uL (0.0-0.2); Absolute Eosinophil Count 0.09 10^3/uL (0.0-0.7); Absolute Lymphocyte Count 1.02 10^3/uL (1.2-3.4); Absolute Neutrophil Count 6.57 10^3/uL (1.2-6.7); Basophils % 0.4 %; Eosinophils % 1.1 %; HCT 37.4 % (36.0-46.0); HGB 12.2 g/dL (11.2-15.7); Immature Grans % 0.5 %; Lymphocytes % 12.4 %; MCH 27.5 pg (27.0-33.0); MCHC 32.6 % (32.0-36.0); MCV 84 fL (80-95); MPV 10.4 fL (8.0-11.0); Monocytes % 6.1 %; Neutrophils % 79.5 %; Platelet Count 141 10^3/uL (130-400); RBC 4.43 10^6/uL (3.93-5.22); RDW 17.5 % (11.7-14.6); RDW-SD 54.1 fL; WBC 8.25 10^3/uL (4.4-10.8)
[2023-08-30 21:01] LABS: ESR 20 mm/hr (0-30)
[2023-08-30 21:08] LABS: BUN 19 mg/dL (7-18); Calcium 9.2 mg/dL (8.5-10.1); Chloride 102 mmol/L (98-107); Estimated GFR 60.23 (mL/min/1.73m2); Glucose 214 mg/dL (74-106); Potassium 3.7 mmol/L (3.5-5.1); Sodium 141 mmol/L (136-145)
[2023-08-30 21:14] LABS: ALT 38 U/L (14-59); AST 13 U/L (15-37); Albumin 3.9 g/dL (3.4-5.0); Alkaline Phosphatase 92 U/L (46-116); Bilirubin, Direct 0.3 mg/dL (0.0-0.2); Bilirubin, Total 0.7 mg/dL (0.2-1.0); C-Reactive Protein 1.88 mg/dL (<or=0.5); Lipase 98 U/L (16-77); Total Protein 7.4 g/dL (6.4-8.2); Troponin I < 50 ng/L (< or =60)
[2023-08-30 21:32] LABS: Procalcitonin < 0.1 ng/mL
[2023-08-30] MEDS: Normal Saline - Diluent 50 ML VIAL IJ (21:33)
[2023-08-30] MEDS: Omnipaque 350 MG/ML 100 ML BTL IJ (21:34)
[2023-08-30] MEDS: PIPERACILLIN/TAZO 4.5 GM in Normal Saline 100 ML IVPB (21:58)
[2023-08-30 22:08] LABS: Bilirubin Negative (Negative); Blood Trace-intact (Negative); Clarity Sl Cloudy (Clear); Glucose Negative (Negative); Ketones Negative (Negative); Leukocyte Esterase Small (Negative); Nitrite Negative (Negative); Urobilinogen 0.2 mg/dL (Up to 0.2); pH 5.5 (5-8)
[2023-08-30 22:14] LABS: WBC >50 HPF (0-5)
[2023-08-30 22:15] LABS: Bacteria Moderate HPF (Negative); C & S Indicated? No/Sq. Contamination; Crystals Negative HPF (Negative); Epithelial Cells Moderate HPF (Negative); Mucus Negative (Negative)
--- NOTE | 2023-08-30 22:23 | DI.VRAD_ITS ---
PROCEDURE INFORMATION: Exam: CT Abdomen And Pelvis Without And With Contrast Exam date and time: 08/30/2023 21:34 Age: 72 years old Clinical indication: Other: CT renal wo > CT abd w/ - severe abd pain; Abdominal pain TECHNIQUE: Imaging protocol: Computed tomography of the abdomen and pelvis without and with contrast. Contrast material: OMNI 350; Contrast volume: 100 ml; Contrast route: INTRAVENOUS (IV); COMPARISON: CT ABDOMEN PELVIS W 12/25/2019 09:54 FINDINGS: Liver: Nodular liver. Hypoattenuating subcentimeter right hepatic region is indeterminate on this phase of imaging with hepatocellular carcinoma not excluded. Follow-up as per institutional protocol. Gallbladder and bile ducts: Cholelithiasis. No significant biliary dilation or radiopaque stones in the biliary tree. Pancreas: No ductal dilation. Spleen: Splenomegaly. No focal splenic lesions. Adrenal glands: No mass. Kidneys and ureters: No nephrolithiasis or collecting system obstruction. Stomach and bowel: Mild wall thickening of left-sided small bowel loops. No significant appearing obstructive process in GI tract. Appendix: No evidence of appendicitis. Intraperitoneal space: No free air. No significant fluid collection. Vasculature: Dilated patent portal vein. Dilated splenic vein. Gastroesophageal varices. No aortic aneurysm. Trace pelvic free fluid probably portal hypertension related. Lymph nodes: Enlarged portacaval lymph node favor cirrhosis related. Urinary bladder: Unremarkable as visualized. Reproductive: Unremarkable as visualized. Bones/joints: Chronic appearing mild loss of height superior T12 endplate. The bones are demineralized for age. Soft tissues: Foci of mild inflammatory stranding in the ventral abdominal subcutaneous fat, likely from medication injection. IMPRESSION: 1. Cirrhosis. 2. Portal hypertension. Trace ascites. Splenomegaly. Gastroesophageal varices. 3. Mild wall thickening of left-sided small bowel loops. Favor portal enteropathy over infectious or inflammatory enteritis. 4. Additional findings as described. Dictated and Authenticated by: Nata Heredia MD. Ordering:MARIUM Mcdonald MD
--- NOTE | 2023-08-30 22:45 | DI.RAD_ITS ---
Exam(s) XR CHEST 2V PA LATERAL EXAM: XR CHEST 2V PA LATERAL CLINICAL HISTORY: sepsis infection search TECHNIQUE: 2D digital imaging was performed of the chest. Two images were obtained. PA and lateral views were obtained. COMPARISON: CR XR CHEST 2V PA LATERAL from 08/12/2022 FINDINGS: MEDIASTINUM: Normal. HEART: Normal. PULMONARY VASCULATURE: Normal. LUNGS: Clear. PLEURAL SPACE: No pleural effusion or pneumothorax. BONE:Within normal limits for the patient's age. OTHER FINDINGS:Normal. IMPRESSION: No acute pulmonary findings. DATA REPOSITORY: RADIATION DOSE DELIVERED:
--- NOTE | 2023-08-30 23:56 | DI.VRAD_ITS ---
PROCEDURE INFORMATION: Exam: XR Chest Exam date and time: 08/30/2023 23:49 Age: 72 years old Clinical indication: Other: Sepsis infection search TECHNIQUE: Imaging protocol: Radiologic exam of the chest. Views: 2 views. COMPARISON: CR XR CHEST 2V PA LATERAL 08/12/2022 16:06 FINDINGS: Lungs: Mild hyperinflation without airspace consolidation. Pleural spaces: No pleural effusion. No pneumothorax. Heart/Mediastinum: No cardiomegaly. Bones/joints: No acute fracture. IMPRESSION: Mild hyperinflation without airspace consolidation. Dictated and Authenticated by: Nata Heredia MD. Ordering:MARIUM Mcdonald MD
--- NOTE | 2023-08-31 | DI.CT_ITS ---
Exam(s) CT ABDOMEN PELVIS CTA EXAM: CT ABDOMEN PELVIS CTA CLINICAL HISTORY: abdominal pain. TECHNIQUE: Imaging Protocol: Axial CT angiography was performed with multi-slice acquisition and m ulti-planar and/or 3D reconstructions. CONTRAST MATERIAL: Intravenous: Omnipaque 350 Contrast volume:100mL Oral: No COMPARISON: CT CT ABDOMEN PELVIS WO/W from 08/30/2023 FINDINGS: ABDOMEN AND PELVIS: Abdomen: Celiac axis/mesenteric arteries: No evidence of occlusion or significant stenosis. There is atheroscl erotic calcification at the origins of both the celiac axis and the superior mesenteric artery withou t significant stenosis. Renal Arteries: There is no evidence of occlusion. There is atherosclerotic calcification at the graham gins of the renal arteries bilaterally. There is moderately severe stenosis at the origin of the aust[place] al arteries bilaterally, right greater than left. Aorta: No evidence of occlusion or significant stenosis. No aneurysm or dissection. Pelvis: Iliac Arteries: No occlusion is seen. Atherosclerotic calcification is present. There is severe st enosis at the origin of the right common iliac artery. Common Femoral Arteries: No evidence of occlusion or significant stenosis. Atherosclerotic calcifica tion is present. ABDOMEN: Lung bases: There is a stable right middle lobe pulmonary nodule. No acute consolidating infiltrates are seen in the lungs. Liver: There is a nodular contour of the liver suggesting hepatic cirrhosis. There is unchanged area of decreased attenuation in the medial aspect of the right lobe of the liver. No new hepatic lesion s are seen. No measurable mass. Portal, Superior Mesenteric, and Splenic Veins: Unremarkable. Gallbladder and Biliary Tract: Cholelithiasis. No biliary ductal dilatation. Pancreas: Normal density, no abnormal calcifications or inflammatory process. Spleen: Splenomegaly. Adrenals: No masses seen. Kidneys: Normal size, contour and axis. No radiodense stones or obstructive uropathy. Stable simple r ight renal cyst. No follow-up is recommended. Bowel: There is diverticulosis of the colon without evidence of acute diverticulitis. There is no ev idence of bowel obstruction or bowel wall thickening. No pneumatosis is present. No evidence of marky endicitis. Peritoneal Cavity: There is a trace amount of ascites in the pelvis. No free air. Lymph Nodes: There are stable enlarged lymph nodes seen in the upper abdomen. Bones: There is again seen a compression fracture deformity of T12. This appears stable. Age-approp riate degenerative changes are seen in the spine. Soft Tissues: Infiltrative changes seen in the subcutaneous soft tissues of the right anterior abdomi nal wall. PELVIS: Bladder: Symmetric distention, no gross wall thickening. Reproductive Organs: Unremarkable as visualized. Lymph Nodes: Within normal limits. Bones: Within normal limits. IMPRESSION: 1. Moderately severe stenosis at the origins of the renal arteries bilaterally, right greater than le ft. 2. Severe stenosis at the origin of the right common iliac artery. 3. Findings again suggestive of hepatic cirrhosis and portal venous hypertension. 4. Cholelithiasis. No biliary ductal dilatation. 5. Question cellulitis of the right anterior abdominal wall. No focal fluid collection is seen to alexander ggest an abscess. RADIATION DOSE DELIVERED: Total DLP DATA REPOSITORY: All CT scans at this facility are submitted to the National Radiology Data Registry (NRDR) Dose Index Registry (DIR) with the [employer] (ACR). RADIATION OPTIMIZATION: All CT scans at this facility use at least one of these dose optimization te chniques: automated exposure control; mA and/or kV adjustment per patient size (includes targeted exa ms where dose is matched to clinical indication); or iterative reconstruction.
--- NOTE | 2023-08-31 00:36 | HPE_ITS ---
Date of service: 08/30/23 Time of Service: 23:35 Assessment and Plan Assessment and plan (1) Epigastric abdominal pain: Status: Acute Assessment and plan: Her presenting symptom is epigastric pain. Mildly elevated lipase c/w possible early pancreatitis, though we did not see this on CT. Radiation fits with this, though I would expect nausea. GLP-1 agent raises risk of this. PUD/gastritis also in differential. H2 block didn't help, will treat with high dose PPI No suggestion of obstruction on labs, but with pancreatitis get abdominal u/s in morning to look for signs of stone. Concern in ED for elevated lactate, but this can be chronic at this level in cirrhotic patients. I don't see a bacterial infection to treat so I will hold off on antibiotics at this point unless she get more sick or cultures grow. Follow clinically. (2) Enteritis: Status: Acute Assessment and plan: Per CT read looks more like portal hypertensoin gastropathy. Her crohns has been well controlled and she has not symptoms of enteritis, though CRP mildly elevated. No specific treatment for now, monitor clinically. (3) Liver cirrhosis secondary to nonalcoholic steatohepatitis (SILVESTRE): Status: Chronic Assessment and plan: Has documented portal HTN and varicies, but no signs of bleeding, minimal ascites that isn't enough to tap. Her cirrhosis is actually well compensated now with Child Radha Murray score of 6/Class A. (4) Crohn's disease: Status: Chronic Assessment and plan: has been well controlled as above on biologic. I don't think this is flair even though mild CRP elevation. Qualifiers: Gastrointestinal tract location: unspecified location Digestive disease complication type: other complication Qualified Code(s): K50.918 - Crohn's disease, unspecified, with other complication (5) Diabetes mellitus type 2, controlled, without complications: Status: Chronic Assessment and plan: Continue glargine, holding GLP-1 and metformin (had contrast study) Qualifiers: Diabetes mellitus jail insulin use: with ad terminal makeup operator use Qualified Code(s): E11.9 - Type 2 diabetes mellitus without complications; Z79.4 - halfway (current) use of insulin (6) Pyuria: Status: Acute Assessment and plan: contaminated U/a, no urinary symptoms. Repeat U/a and try to get clean catch if possible, but I don't think we should treat this. (7) DVT prophylaxis: Status: Resolved Assessment and plan: LMWH History of Present Illness History of Present Illness Chief Complaint: epigastric pain Narrative: 72 yo F with history of GERD, Crohns controlled on T-cell modulator vedolizumab, type 2 DM on liraglutide and insulin, SILVESTRE cirrhosis with portal HTN and varicies, who presented after acute onset epigastric pain starting about 3pm. She was feeling well prior to the pain today. She ate normal lunch of egg salad Ceroswhich about noon. At 3, had sudden sharp pain in epigastrum. Started moderate, became severe, then started radiating around both sides to her mid back. Pain has been constant since then, only slight alleviation with IV acetaminophen. She tried taking tagament for her stomach and the pain just got worse. Pain has not been associated with nausea or vomiting. She has not had any recent change in bowel habits, no blood in stool or melena. It hurts to breath deep, but no cough or sputum production. no fevers or chills. She hasn't had this same pain in the past. Review of Systems All systems reviewed & are unremarkable except as noted in HPI and below ENT Ears, Nose, Mouth, and Throat: Denies dysphagia Gastrointestinal Gastrointestinal: Reports as per HPI and Denies dysphagia Genitourinary Genitourinary: Denies hematuria, Denies dysuria, Denies pelvic pain and Denies urinary urgency PFSH All Active Problems (Updated 08/31/23 @ 01:01 by Maynor Monroe) Pyuria (Acute) Epigastric abdominal pain (Acute) Sepsis (Acute) Enteritis (Acute) Lumbago (Acute) Abnormal mammogram (Acute) Hypothyroidism (Chronic) s/p R partial thyroidectomy Arteriosclerosis of both carotid arteries (Acute) [place] [facility] [place] 1 [place] 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 (Acute 02/17/21) [place] [facility] [place] Multinodular thyroid (Acute) Bilateral carotid bruits (Acute) Liver cirrhosis secondary to nonalcoholic steatohepatitis (SILVESTRE) (Chronic ~03/2011) Portal hypertension (Acute) Splenomegaly (Chronic) 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 (Acute) [id number]/20 Crohn's disease (Chronic ~2018) 07[place] [facility] [facility] [place] - of small intestine with intestinal obstruction Iron deficiency anemia (Acute) Iron deficiency anemia due to chronic blood loss[place] [place] 09/21/22 Essential hypertension (Chronic 02/05/13) Diabetes mellitus type 2, controlled, without complications (Chronic 06/07/12) no retinopathy 01/06/14 A1C goal 7.5 Other and unspecified hyperlipidemia (Chronic 06/07/12) PCEq risk 11% LDL baseline 87 Gastroesophageal reflux disease (Chronic 04/12/11) Former cigarette smoker (Acute) Supraventricular tachycardia, paroxysmal (Chronic 06/02/16) Pulmonary nodule (Chronic) Tubular adenoma (Chronic 10/06/15) [facility] [place] Lichen sclerosus et atrophicus (Chronic 07/26/11) 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) Dr Steinberg Epistaxis (08/18/16) Diarrhea (11/20/14) Chronic interstitial cystitis (02/05/13) Dx: Dr Ponce Hiatal hernia GERD (gastroesophageal reflux disease) Lichen sclerosus et atrophicus Premature menopause Diabetes mellitus, type 2 Surgical History History of colonoscopy (~05/2023) [facility] [place]/O partial thyroidectomy (~07/2021) Right thyroid lobectomy, April Christensen, benign process 08/27/21 F/U Gen Surgery Posterior subcapsular age-related cataract of left eye Nuclear sclerotic cataract of left eye Posterior subcapsular age-related cataract, right eye Nuclear sclerotic cataract of right eye [place] [place] [id number] [place] Colonoscopy (10/06/15) Dr Hunter, tubular adenoma, repeat 5 yrs Biopsy of breast (~1992) R benign 1992 Appendectomy 1991 Family History Father Diabetes Sister Diabetes Breast cancer Other Heart disease Personal history of malignant neoplasm Social History Smoking/Tobacco Use Status: Former Tobacco Use Quit Date: 03/20/06 Smoking risk assessment performed?: Yes Alcohol Intake: never Drug use: Never Substance use type: does not use Household members: spouse Housing: house Number of Children: 3 number of grandchildren: 2 current occupation: rertired director from [employer] What is your relationship status?: How often do you talk on the phone with friends or family?: three or more times per week Panel score (0-1 are the most socially isolated patients): 2 What type of physical activity do you participate in: walking Duration: 15-30 minutes/day Frequency: 3-4 times per week Seatbelt use: always Drive intox or ride w/intox cement truck driver: No Working smoke detector in home: Yes Fire extinguisher in home: Yes Carbon monox detector in home: Yes Do you feel safe at home: Yes Do you feel safe in your relationship?: Yes Female Reproductive History Menstrual Menopause type: natural History History 2 3 Para 3 Hx # Term Pregnancies Multiple births Hx # Pregnancies Ectopic pregnancies AB induced Hx Number of Living Children AB spontaneous Meds Allergies and Home Medications Allergies Allergy/AdvReac Type Severity Reaction Status Date / Time ciprofloxacin Allergy Intermediate Skin Rash Verified 08/30/23 20:19 lisinopril AdvReac Intermediate cough Verified 08/30/23 20:19 simvastatin AdvReac Intermediate fatigue Verified 08/30/23 20:19 codeine [Codeine] AdvReac nausea/vomi Verified 08/30/23 20:19 ting Home Medications Medication Instructions Recorded Confirmed Type lancets (OneTouch UltraSoft 06/05/12 08/30/23 History Lancets) Onetouch Ultra Test Strips 1 ea miscellaneous TID #300 strips 07/11/17 08/30/23 History lorazepam 0.5 mg tablet 0.5 mg sublingual TID PRN anxiety 02/20/18 08/30/23 Rx #10 tabs cimetidine 200 mg tablet 200 mg PO PRN PRN 10/26/20 08/30/23 History vedolizumab 300 mg intravenous 300 mg IV Q4W 07/05/21 08/30/23 History solution (Entyvio) omeprazole 20 mg capsule,delayed See Rx Instructions .Route 03/31/23 08/30/23 Rx release .COMPLEX #90 caps glimepiride 2 mg tablet 2 mg PO QAM #90 tabs 05/08/23 08/30/23 Rx liraglutide 0.6 mg/0.1 mL (18 mg/3 1.2 mg (0.2 mL) subcut DAILY #6 05/08/23 08/30/23 Rx mL) subcutaneous pen injector SYRGS (Victoza 3-Melquiades) losartan 100 1 tab PO .daily in AM #90 tabs 05/08/23 08/30/23 Rx mg-hydrochlorothiazide 25 mg tablet metformin 500 mg tablet 1,000 mg (2 x 500 mg) PO BID #360 05/08/23 08/30/23 Rx tab-caps metoprolol tartrate 25 mg tablet 25 mg PO BID #180 tabs 05/08/23 08/30/23 Rx rosuvastatin 5 mg tablet 5 mg PO .every other night #45 tabs 05/08/23 08/30/23 Rx insulin glargine 100 unit/mL (3 See Rx Instructions .Route 08/10/23 08/30/23 Rx mL) subcutaneous pen (Basaglar .COMPLEX #60 mL KwikPen U-100 Insulin) pen needle, diabetic 31 gauge x #100 ea 08/10/23 08/30/23 Rx 3/16 (BD Ultra-Fine Mini Pen Needle) levothyroxine 25 mcg tablet See Rx Instructions .Route 08/16/23 08/30/23 Rx .COMPLEX #90 tabs methocarbamol 500 mg tablet 500 - 1,000 mg (1 - 2 x 500 mg) PO 08/17/23 08/30/23 Rx TID PRN back muscle spasm #40 tabs cephalexin 500 mg capsule 500 mg PO QID UTI 10 days #40 caps 08/30/23 Rx Exam Narrative Exam Narrative: GEN: Alert and oriented x 4, pleasant and cooperative, gives linear history. She appears quite well. No acute distress at rest. HEENT: Head atraumatic. Conjunctiva clear, no icterus. PEERL, EOMI. no rhinorrhea. MMM, OP benign. Neck is supple with no masses or lymphadenopathy, trachea midline LUNGS: CTAB with normal effort CV: RRR with no murmurs, gallops, or rubs. ABD: +BS, soft. Rounded abdomen, but not distended. I could not appreciate fluid wave. She is tender in epigastrum. Purcussion in RUQ and LUQ cause pain in epigastrum, not at all tender in mid to lower abdomen. No masses palpable. EXT: no cyanosis, clubbing, or significant LE edema MSK: No joint redness or swelling NEURO: CN 2-12 grossly intact. Normal movement of 4 extremities. Normal speech and coordination. no tremor/asterixis SKIN: No rashes or open wounds. PSYCH: normal mood and affect. Memory intact. Results Imaging Chest x-ray: report reviewed (Mild hyperinflation without airspace consolidation. ) and image reviewed Abdomen CT scan report/results: report reviewed (1. Cirrhosis. 2. Portal hypertension. Trace ascites. Splenomegaly. Gastroesophageal varices. 3. Mild wall thickening of left- sided small bowel loops. Favor portal enteropathy over infectious or inflammatory enteritis. 4. Additional findings as described. ) Labs 08/30/23 20:40 08/30/23 20:40 Labs: Laboratory Results - last 24 hr 08/30/23 08/30/23 08/30/23 20:38 20:40 22:00 WBC 8.25 RBC 4.43 Hgb 12.2 Hct 37.4 MCV 84 MCH 27.5 MCHC 32.6 RDW 17.5 H Plt Count 141 MPV 10.4 Immature Gran % 0.5 Neutrophils % 79.5 Lymphocytes % 12.4 Monocytes % 6.1 Eosinophils % 1.1 Basophils % 0.4 Nucleated RBC % 0.0 Absolute Neutrophils 6.57 Absolute Lymphocytes 1.02 L Absolute Monocytes 0.50 Absolute Eosinophils 0.09 Absolute Basophils 0.03 ESR 20 VBG Lactate 2.8 H* Sodium 141 Potassium 3.7 Chloride 102 Carbon Dioxide 27.0 Anion Gap 12.0 H BUN 19 H Creatinine 1.0 Est GFR (CKD-EPI 2020) 60.23 Glucose 214 H Calcium 9.2 Total Bilirubin 0.7 Conjugated Bilirubin 0.3 H AST 13 L ALT 38 Alkaline Phosphatase 92 Troponin I < 50 C-Reactive Protein 1.88 H Total Protein 7.4 Albumin 3.9 Lipase 98 H Procalcitonin < 0.1 Urine Color Yellow Urine Clarity Sl Cloudy Urine pH 5.5 Ur Specific [place] 1.010 Urine Protein Negative Urine Ketones Negative Urine Blood Trace-intact H Urine Nitrite Negative Urine Bilirubin Negative Urine Urobilinogen 0.2 Ur Leukocyte Esterase Small H Urine RBC Urine WBC >50 H Ur Epithelial Cells Moderate Urine Crystals Negative Urine Bacteria Moderate Urine Mucus Negative Ur Culture Indicated? No/Sq. Contamination Urine Glucose Negative 08/30/23 22:44 WBC RBC Hgb Hct MCV MCH MCHC RDW Plt Count MPV Immature Gran % Neutrophils % Lymphocytes % Monocytes % Eosinophils % Basophils % Nucleated RBC % Absolute Neutrophils Absolute Lymphocytes Absolute Monocytes Absolute Eosinophils Absolute Basophils ESR VBG Lactate 3.0 H* Sodium Potassium Chloride Carbon Dioxide Anion Gap BUN Creatinine Est GFR (CKD-EPI 2020) Glucose Calcium Total Bilirubin Conjugated Bilirubin AST ALT Alkaline Phosphatase Troponin I C-Reactive Protein Total Protein Albumin Lipase Procalcitonin Urine Color Urine Clarity Urine pH Ur Specific [place] Urine Protein Urine Ketones Urine Blood Urine Nitrite Urine Bilirubin Urine Urobilinogen Ur Leukocyte Esterase Urine RBC Urine WBC Ur Epithelial Cells Urine Crystals Urine Bacteria Urine Mucus Ur Culture Indicated? Urine Glucose Last Vital Signs Temp 36.8 C 08/30/23 20:53 Pulse 79 08/30/23 20:53 Resp 14 08/30/23 20:53 BP 103/75 08/30/23 20:53 Pulse Ox 98 08/30/23 20:53 Time Spent Time spent with Patient: 55-74 minutes Time was spent: preparing to see the patient(eg.review tests), obtaining and/or reviewing separately otained hiistory, ordering medications,tests, procedures, referring, communicating with other health insurance healthcare consultant, indepentently interpreting results and counseling the patient
--- NOTE | 2023-08-31 00:45 | RT.EKG_ITS ---
APPROVED REPORT Exam: Resting ECG Reason for Exam: epigastric pain Patient Location: E HR:72 bpm ECG Measurements Heart Rate 72 AXIS AR 151 P 53 QRSd 80 QRS 40 QT 417 T 52 QTc 455 Conclusion Sinus rhythm...normal P axis, V-rate 60- 99 Normal Electrocardiogram
[2023-08-31 01:11] LABS: Bilirubin Negative (Negative); Blood Negative (Negative); Clarity Clear (Clear); Glucose Negative (Negative); Ketones Negative (Negative); Leukocyte Esterase Negative (Negative); Nitrite Negative (Negative); Specific Gravity <= 1.005 (1.005-1.025); Urobilinogen 0.2 mg/dL (Up to 0.2)
[2023-08-31 01:51] VITALS: BP 160/65; PULSE 76; RESP 20; TEMP 37.5; O2SAT 97
[2023-08-31] MEDS: Pantoprazole 40 MG VIAL IVP ×3 (02:18→19:54)
[2023-08-31] MEDS: Normal Saline Flush 10 ML SYR (02:18)
[2023-08-31] MEDS: HYDROmorphone 2 MG/ML SYR 1 MG IVP (02:34)
[2023-08-31] MEDS: Levothyroxine 25 MCG TAB PO (07:00)
[2023-08-31 07:15] VITALS: BP 138/69; PULSE 73; RESP 16; TEMP 37.6; O2SAT 96
[2023-08-31] MEDS: Acetaminophen 325 MG TAB PO ×3 (08:05→19:53)
[2023-08-31] MEDS: hydroCHLOROthiazide 25 MG TAB PO (09:25)
[2023-08-31] MEDS: Losartan 50 MG TAB 100 MG PO (09:25)
[2023-08-31] MEDS: Metoprolol 12.5 MG TAB 25 MG PO ×2 (09:25→19:53)
[2023-08-31] MEDS: Insulin Glargine 300 UNITS/3 ML PEN 25 UNITS SC (09:35)
[2023-08-31 10:20] LABS: ALT 27 U/L (14-59); AST 11 U/L (15-37); Albumin 3.4 g/dL (3.4-5.0); Alkaline Phosphatase 74 U/L (46-116); BUN 17 mg/dL (7-18); Calcium 8.6 mg/dL (8.5-10.1); Chloride 104 mmol/L (98-107); Estimated GFR 60.23 (mL/min/1.73m2); Glucose 130 mg/dL (74-106); Potassium 3.9 mmol/L (3.5-5.1); Sodium 141 mmol/L (136-145); Total Protein 6.4 g/dL (6.4-8.2)
--- NOTE | 2023-08-31 10:58 | SCONE_ITS ---
Date of service: 08/31/23 Time of Service: 10:58 Assessment and Plan Assessment and plan (1) Epigastric abdominal pain: Status: Acute Assessment and plan: Nature of the pain does seem consistent with pancreatitis, and the biochemistry would certainly support that. The CT scan is less impressive, but I do see signs of cholelithiasis. In that regards, I suspect gallstone pancreatitis is the most consistent diagnosis. In most cases, I recommend elective cholecystectomy. However given the extent of her cirrhosis, and splenomegaly, I do think this would be a relatively risky operation. For now, I would continue to treat her with basic resuscitation, and trend the LFTs and lipase to ensure that they are normalizing. Certainly, her exam and subjective complaints seem to be getting better, and I think that is probably the most reassuring part. She has had some mildly elevated triglycerides in the past, nothing that I would expect with trigger pancreatitis, but that might be worth checking. Could also check H. pylori to rule out peptic ulcer disease as a source, but in the big picture of things, I think gallstone pancreatitis is the most likely diagnosis here. History of Present Illness History of Present Illness Chief Complaint: Midepigastric abdominal pain Narrative: Terrie is 72 years old, she comes to the emergency department yesterday with increasing midepigastric abdominal pain that radiates through the right and left flanks towards her back. Up through yesterday morning and afternoon, she had been in her usual state of health. She had an egg salad sandwich for lunch, which is not out of the ordinary for her. In the later portion of the afternoon she started to develop the pain. At first, she thought it may be just some of her known gastroesophageal reflux disease. She took an extra Tagamet, but symptoms did not improve. The pain became quite sharp and associated with just a little bit of nausea, which prompted her to come to the emergency department. In the ER, she had a lactic acidosis, mildly elevated conjugated bilirubin, and a lipase of 98. She underwent a CT scan that showed some mildly dilated loops of bowel that may be consistent with enteritis, and known cirrhosis with splenomegaly. Review of Systems Constitutional Constitutional: Denies body ache(s), Denies fever(s), Denies poor appetite and Denies weakness Eyes Eyes: Reports system reviewed and no additional complaints, except as documented ENT Ears, Nose, Mouth, and Throat: Reports system reviewed and no additional complaints, except as documented Cardiovascular Cardiovascular: Denies chest pain and Denies dyspnea Respiratory Respiratory: Denies chest congestion, Denies cough and Denies dyspnea Gastrointestinal Gastrointestinal: Reports abdominal pain, Reports heartburn and Reports nausea Musculoskeletal Musculoskeletal: Reports back pain Neurologic Neurologic: Reports system reviewed and no additional complaints, except as documented and Denies weakness Psychiatric Psychiatric: Reports system reviewed and no additional complaints, except as documented Hematologic/Lymphatic Hematologic/Lymphatic: Denies easy bleeding and Denies easy bruising PFSH All Active Problems Pyuria (Acute) Epigastric abdominal pain (Acute) Sepsis (Acute) Enteritis (Acute) Lumbago (Acute) Abnormal mammogram (Acute) Hypothyroidism (Chronic) s/p R partial thyroidectomy Arteriosclerosis of both carotid arteries (Acute) 08/31/21 [facility] [place] Vascular, f/u in 1 year 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 (Acute 02/17/21) MRI angiogram Neck - [facility] Multinodular thyroid (Acute) Bilateral carotid bruits (Acute) Liver cirrhosis secondary to nonalcoholic steatohepatitis (SILVESTRE) (Chronic ~03/2011) Portal hypertension (Acute) Splenomegaly (Chronic) 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 (Acute) [id number]/20 Crohn's disease (Chronic ~2018) 07/01/21 [facility] note - of small intestine with intestinal obstruction Iron deficiency anemia (Acute) Iron deficiency anemia due to chronic blood loss--[facility] Hem Onc note 09/21/22 Essential hypertension (Chronic 02/05/13) Diabetes mellitus type 2, controlled, without complications (Chronic 06/07/12) no retinopathy 01/06/14 A1C goal 7.5 Other and unspecified hyperlipidemia (Chronic 06/07/12) PCEq risk 11% LDL baseline 87 Gastroesophageal reflux disease (Chronic 04/12/11) Former cigarette smoker (Acute) Supraventricular tachycardia, paroxysmal (Chronic 06/02/16) Pulmonary nodule (Chronic) Tubular adenoma (Chronic 10/06/15) [facility] 05/2023 Lichen sclerosus et atrophicus (Chronic 07/26/11) 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) Dr Steinberg Epistaxis (08/18/16) Diarrhea (11/20/14) Chronic interstitial cystitis (02/05/13) Dx: Dr Ponce Hiatal hernia GERD (gastroesophageal reflux disease) Lichen sclerosus et atrophicus Premature menopause Diabetes mellitus, type 2 Surgical History History of colonoscopy (~05/2023) [facility]-repeat 3 yrs H/O partial thyroidectomy (~07/2021) Right thyroid lobectomy, April Christensen, benign process 08/27/21 F/U Gen Surgery Posterior subcapsular age-related cataract of left eye Nuclear sclerotic cataract of left eye Posterior subcapsular age-related cataract, right eye Nuclear sclerotic cataract of right eye Endoscopy Upper GI 04/06/18-[facility] [place] Upper GI [id number] Bensen Colonoscopy (10/06/15) Dr Hunter, tubular adenoma, repeat 5 yrs Biopsy of breast (~1992) R benign 1992 Appendectomy 1991 Family History Father Diabetes Sister Diabetes Breast cancer Other Heart disease Personal history of malignant neoplasm Social History Smoking/Tobacco Use Status: Former Tobacco Use Quit Date: 03/20/06 Smoking risk assessment performed?: Yes Alcohol Intake: never Drug use: Never Substance use type: does not use Household members: spouse Housing: house Number of Children: 3 number of grandchildren: 2 current occupation: rertired director from [employer] What is your relationship status?: How often do you talk on the phone with friends or family?: three or more times per week Panel score (0-1 are the most socially isolated patients): 2 What type of physical activity do you participate in: walking Duration: 15-30 minutes/day Frequency: 3-4 times per week Seatbelt use: always Drive intox or ride w/intox wheelchair van driver: No Working smoke detector in home: Yes Fire extinguisher in home: Yes Carbon monox detector in home: Yes Do you feel safe at home: Yes Do you feel safe in your relationship?: Yes Female Reproductive History Menstrual Menopause type: natural History History 2 3 Para 3 Hx # Term Pregnancies Multiple births Hx # Pregnancies Ectopic pregnancies AB induced Hx Number of Living Children AB spontaneous Exam Const General: cooperative and healthy appearing Nutritional Appearance: average body habitus Orientation: awake and oriented x3 HENMT Head: normal to inspection Neck Neck: normal visual inspection, full ROM and no lymphadenopathy GI Inspection: normal to inspection and non-distended Palpation: soft, guarding and tender Auscultation: normal bowel sounds Results Last Vital Signs Temp 99.7 F H 08/31/23 07:15 Pulse 73 08/31/23 07:15 Resp 16 08/31/23 07:15 BP 138/69 08/31/23 07:15 Pulse Ox 96 08/31/23 07:15 Labs 08/30/23 20:40 08/30/23 20:40 Labs: Laboratory Results - last 24 hr 08/30/23 08/30/23 08/30/23 20:38 20:40 22:00 WBC 8.25 RBC 4.43 Hgb 12.2 Hct 37.4 MCV 84 MCH 27.5 MCHC 32.6 RDW 17.5 H Plt Count 141 MPV 10.4 Immature Gran % 0.5 Neutrophils % 79.5 Lymphocytes % 12.4 Monocytes % 6.1 Eosinophils % 1.1 Basophils % 0.4 Nucleated RBC % 0.0 Absolute Neutrophils 6.57 Absolute Lymphocytes 1.02 L Absolute Monocytes 0.50 Absolute Eosinophils 0.09 Absolute Basophils 0.03 ESR 20 VBG Lactate 2.8 H* Sodium 141 Potassium 3.7 Chloride 102 Carbon Dioxide 27.0 Anion Gap 12.0 H BUN 19 H Creatinine 1.0 Est GFR (CKD-EPI 2020) 60.23 Glucose 214 H Calcium 9.2 Total Bilirubin 0.7 Conjugated Bilirubin 0.3 H AST 13 L ALT 38 Alkaline Phosphatase 92 Troponin I < 50 C-Reactive Protein 1.88 H Total Protein 7.4 Albumin 3.9 Lipase 98 H Procalcitonin < 0.1 Urine Color Yellow Urine Clarity Sl Cloudy Urine pH 5.5 Ur Specific Sanders 1.010 Urine Protein Negative Urine Ketones Negative Urine Blood Trace-intact H Urine Nitrite Negative Urine Bilirubin Negative Urine Urobilinogen 0.2 Ur Leukocyte Esterase Small H Urine RBC Urine WBC >50 H Ur Epithelial Cells Moderate Urine Crystals Negative Urine Bacteria Moderate Urine Mucus Negative Ur Culture Indicated? No/Sq. Contamination Urine Glucose Negative 08/30/23 08/31/23 22:44 01:07 WBC RBC Hgb Hct MCV MCH MCHC RDW Plt Count MPV Immature Gran % Neutrophils % Lymphocytes % Monocytes % Eosinophils % Basophils % Nucleated RBC % Absolute Neutrophils Absolute Lymphocytes Absolute Monocytes Absolute Eosinophils Absolute Basophils ESR VBG Lactate 3.0 H* Sodium Potassium Chloride Carbon Dioxide Anion Gap BUN Creatinine Est GFR (CKD-EPI 2020) Glucose Calcium Total Bilirubin Conjugated Bilirubin AST ALT Alkaline Phosphatase Troponin I C-Reactive Protein Total Protein Albumin Lipase Procalcitonin Urine Color Yellow Urine Clarity Clear Urine pH 5.0 Ur Specific Sanders <= 1.005 Urine Protein Negative Urine Ketones Negative Urine Blood Negative Urine Nitrite Negative Urine Bilirubin Negative Urine Urobilinogen 0.2 Ur Leukocyte Esterase Negative Urine RBC Urine WBC Ur Epithelial Cells Urine Crystals Urine Bacteria Urine Mucus Ur Culture Indicated? Urine Glucose Negative Imaging Abdomen CT scan report/results: report reviewed and image reviewed CT scan - pelvis: report reviewed and image reviewed
[2023-08-31 12:02] LABS: Abs Immature Grans 0.02 10^3/uL (0.0-0.06); Absolute Basophil Count 0.02 10^3/uL (0.0-0.2); Absolute Eosinophil Count 0.04 10^3/uL (0.0-0.7); Absolute Lymphocyte Count 0.68 10^3/uL (1.2-3.4); Absolute Monocyte Count 0.42 10^3/uL (0.1-0.8); Absolute Neutrophil Count 3.69 10^3/uL (1.2-6.7); Basophils % 0.4 %; Eosinophils % 0.8 %; HCT 32.3 % (36.0-46.0); HGB 10.9 g/dL (11.2-15.7); Immature Grans % 0.4 %; MCH 28.2 pg (27.0-33.0); MCHC 33.7 % (32.0-36.0); MCV 84 fL (80-95); MPV 10.6 fL (8.0-11.0); Monocytes % 8.6 %; Neutrophils % 75.8 %; Platelet Count 106 10^3/uL (130-400); RBC 3.86 10^6/uL (3.93-5.22); RDW 17.6 % (11.7-14.6); RDW-SD 53.7 fL; WBC 4.87 10^3/uL (4.4-10.8)
[2023-08-31 13:12] LABS: Lactate 3.1 mmol/L (0.6-1.4)
--- NOTE | 2023-08-31 13:24 | INITIAL_ITS ---
Date of service: 08/31/23 Time of Service: 13:24 Care Management Initial Assmt Initial Assessment Reason for Hospitalization: pancreatitis Functional Status/Living Situation Patient Presentation: Terrie was sitting up in bed when CM met with her. She was pleasant in manner and engaged well with CM. Terrie stated that she continues to have abdominal pain however she does not have any nausea and has not vomited. She informed that this is her first episode of pancreatitis, although she does have other health issues that are being treated at [facility] [place]. She has some abdominal pain but has only required Tylenol for pain control today. She has hydromorphone ordered as well but has not needed it since about 2:30 am.Her lipase waselevated at 98 last night but is within normal limits today. Terrie is and has 3 children. She worked for [employer] for 24 years and [employer] for 23 years and has been retired for about 4 years. Town of Residence: [facility] Resides with: Spouse Significant Other/Family: Local (Terrie has a son in [place], a daughter in [facility] and another daughter who lives with them) Natural Supports: family Employment Status: Retired Instrumental Activities of Daily Living (ADLs): Independent Activities/Hobbies/SocialSupport: bicycling and golfing Medications Medication Management: No Issues/Barriers identified Physical Functioning/Mobility Assistive Device: none Advance Directives Advance Directives: Do you have an Advance Directive: Y 02/17/21 14:16 AD On File at [facility]: Y 02/17/21 14:16 Date Asked 08/30/23 08/30/23 20:41 AD Date Reviewed 08/21/23 08/21/23 14:44 COLST On File at [facility] No 08/14/23 11:14 COLST Date Scanned Code Status Resuscitation Status Full Code Insurance Coverage/Financial Issues Insurance: Medicare BC/BS federal ACO Member: Yes Care Team Visit Care Team Role Provider Type Grace Becerril NP Primary Care Provider NURSE PRACTITIONER Francia Wyatt MD Other Providers NON-[facility] STAFF PHYSICIAN DANIELLE Cantrell Other Providers PHYSICIANS ASSISTANT Anand Hanks MD Other Providers CONSULTING PHYSICIAN Jp Poe DO Other Providers CONSULTING PHYSICIAN Valentín Dhaliwal MD Other Providers [facility] STAFF PHYSICIAN Anirudh Carter Other Providers CONSULTING PHYSICIAN Bruce Rodriguez MD Other Providers CONSULTING PHYSICIAN Hilary Russell, DO Other Providers OSTEOPATHIC DOCTOR Grace Durán, DO Other Providers CONSULTING PHYSICIAN Santos Campo MD Other Providers CONSULTING PHYSICIAN Regan Medrano, DO Other Providers CONSULTING PHYSICIAN Radha Mac Other Providers NON-[facility] STAFF PHYSICIAN Joseph Mcdowell MD Other Providers [facility] STAFF PHYSICIAN Lottie Davis, DO Other Providers OSTEOPATHIC DOCTOR Sergio Galaviz, DO Other Providers OSTEOPATHIC DOCTOR Cora Hunter MD Other Providers [facility] STAFF PHYSICIAN DANIELLE Siddiqui Emergency Provider PHYSICIANS PARTS DESIGNER Maynor Monroe Admit Provider [facility] STAFF PHYSICIAN Attending Provider Discharge Potential Discharge Needs: PCP F/U Appt Anticipated Barriers to Discharge: None Identified Patient/Family Education Needs: Review discharge instructions, discuss Ask Me Three Transportation: Private vehicle Plan: Anticipate Terrie will be discharged home with no new services when medically cleared. She will follow up with her providers,both locally and at [facility], and will transport with family. CM will follow and continue to assess for discharge needs. PFSH All Active Problems (Updated 08/31/23 @ 17:27 by Jason Javier MD) Elevated lipase (Acute) Cholelithiasis (Acute) Lactate blood increased (Acute) Pyuria (Acute) Epigastric abdominal pain (Acute) Sepsis (Acute) Enteritis (Acute) Lumbago (Acute) Abnormal mammogram (Acute) Hypothyroidism (Chronic) s/p R partial thyroidectomy Arteriosclerosis of both carotid arteries (Acute) 08/31/21 [facility] [place] Vascular, f/u in 1 year 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 (Acute 02/17/21) MRI angiogram Neck - [facility] [place] Multinodular thyroid (Acute) Bilateral carotid bruits (Acute) Liver cirrhosis secondary to nonalcoholic steatohepatitis (SILVESTRE) (Chronic ~03/2011) Portal hypertension (Chronic) Splenomegaly (Chronic) 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 (Acute) [id number]/20 Crohn's disease (Chronic ~2018) 07/01/21 [facility] [place] note - of small intestine with intestinal obstruction Iron deficiency anemia (Acute) Iron deficiency anemia due to chronic blood loss--[facility] [place] [facility] Hem Onc note 09/21/22 Essential hypertension (Chronic 02/05/13) Diabetes mellitus type 2, controlled, without complications (Chronic 06/07/12) no retinopathy 01/06/14 A1C goal 7.5 Other and unspecified hyperlipidemia (Chronic 06/07/12) PCEq risk 11% LDL baseline 87 Gastroesophageal reflux disease (Chronic 04/12/11) Former cigarette smoker (Acute) Supraventricular tachycardia, paroxysmal (Chronic 06/02/16) Pulmonary nodule (Chronic) Tubular adenoma (Chronic 10/06/15) [facility] [place] 05/2023 Lichen sclerosus et atrophicus (Chronic 07/26/11) 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) Dr Steinberg Epistaxis (08/18/16) Diarrhea (11/20/14) Chronic interstitial cystitis (02/05/13) Dx: Dr Ponce Hiatal hernia GERD (gastroesophageal reflux disease) Lichen sclerosus et atrophicus Premature menopause Diabetes mellitus, type 2 Surgical History History of colonoscopy (~05/2023) [facility] [place]-repeat 3 yrs H/O partial thyroidectomy (~07/2021) Right thyroid lobectomy, April Christensen, benign process 08/27/21 F/U Gen Surgery Posterior subcapsular age-related cataract of left eye Nuclear sclerotic cataract of left eye Posterior subcapsular age-related cataract, right eye Nuclear sclerotic cataract of right eye Endoscopy Upper GI 04/06/18-[facility] [place] Upper GI [id number] Bensen Colonoscopy (10/06/15) Dr Hunter, tubular adenoma, repeat 5 yrs Biopsy of breast (~1992) R benign 1992 Appendectomy 1991 Family History Father Diabetes Sister Diabetes Breast cancer Other Heart disease Personal history of malignant neoplasm Social History Smoking/Tobacco Use Status: Former Tobacco Use Quit Date: 03/20/06 Smoking risk assessment performed?: Yes Alcohol Intake: never Drug use: Never Substance use type: does not use Household members: spouse Housing: house Number of Children: 3 number of grandchildren: 2 current occupation: rertired director from [employer] What is your relationship status?: How often do you talk on the phone with friends or family?: three or more times per week Panel score (0-1 are the most socially isolated patients): 2 What type of physical activity do you participate in: walking Duration: 15-30 minutes/day Frequency: 3-4 times per week Seatbelt use: always Drive intox or ride w/intox cab driver: No Working smoke detector in home: Yes Fire extinguisher in home: Yes Carbon monox detector in home: Yes Do you feel safe at home: Yes Do you feel safe in your relationship?: Yes Female Reproductive History Menstrual Menopause type: natural History History 3 Para 3 Hx # Term Pregnancies Multiple births Hx # Pregnancies Ectopic pregnancies AB induced Hx Number of Living Children AB spontaneous SDOH(Care Management) Screening Will the Patient Participate in the Screening?: Yes Do you worry about having a steady place to live?: no Problems where you live: Carbon monoxide detectors missing or not working In the past 12 months, have you had to go without electric, gas, oil or water in your home?: no Have you or anyone in your house had to go without enough food to eat?: no Has lack of transportation kept you from medical appointments or from doing things needed for daily living?: no Has anyone in your support network made you feel unsafe for any reason?: no Health Related Social Needs Health related social needs: inadequate housing(Z59.1)
--- NOTE | 2023-08-31 13:52 | PGE_ITS ---
Date of Service Date of service: 08/31/23 Time of Service: 13:52 Assessment and Plan Assessment and plan (1) Epigastric abdominal pain: Status: Acute Assessment and plan: ddx: PUD, pancreatitis, ischemic bowel, cholelithiasis/cholecystitis. Given that her GB is contracted, her LFT including her total bili and alkaline phosphatase are normal, and her CT scan did not show stigmata of acute or chronic pancreatitis, I am concerned about assigning a dx of gall stone pancreatitis plus if she had passed a stone, her pain should be markedly better; I am concerned for ischemic SB as she has atherosclerosis of her AA w/ stenosis of her RCIA, she has persistently elevated lactate (although this could be the metformin), the elevated lipase may from her liraglutide. I will proceed w/ getting CTA of her abdomen (2) Lactate blood increased: Status: Acute Assessment and plan: may be d/t her metformin but given her sudden abdominal pains and persistent lactate elevation I think mesenteric ischemia needs to be ruled out (3) Elevated lipase: Status: Acute Assessment and plan: ddx: liraglutide, pancreatitis, ischemic bowel (4) Cholelithiasis: Status: Acute Assessment and plan: gall stones but no biliary ductal dilatation and contracted gall bladder w/ normal LFT/bilirubin so unlikely she passed a gall stone Qualifiers: Biliary obstruction: without biliary obstruction Cholecystitis presence: without cholecystitis Cholelithiasis location: gallbladder Qualified Code(s): K80.20 - Calculus of gallbladder without cholecystitis without obstruction (5) Diabetes mellitus, type 2: Assessment and plan: continue basal/bolus insulin Qualifiers: Diabetes mellitus complication status: without complication Diabetes mellitus press tender long goods insulin use: with residential use Qualified Code(s): E11.9 - Type 2 diabetes mellitus without complications; Z79.4 - prison (current) use of insulin (6) Portal hypertension: Status: Chronic (7) Liver cirrhosis secondary to nonalcoholic steatohepatitis (SILVESTRE): Status: Chronic (8) Splenomegaly: Status: Chronic (9) Crohn's disease: Status: Chronic Qualifiers: Digestive disease complication type: other complication Gastrointestinal tract location: unspecified location Qualified Code(s): K50.918 - Crohn's disease, unspecified, with other complication (10) GERD (gastroesophageal reflux disease): Assessment and plan: continue protonix Qualifiers: Esophagitis presence: esophagitis presence not specified Qualified Code(s): K21.9 - Gastro-esophageal reflux disease without esophagitis (11) Essential hypertension: Status: Chronic Assessment and plan: continue losartan, HCTZ Subjective Subjective Interval history since last seen: 72 yr old female w/ Crohn's disease (controlled w/ ), type II DM (controlled w/ metformin, liraglutide, glimepiride), subclavian steel syndrome, and SILVESTRE w/ cirrhosis, (non-drinker of alcohol) who presented yesterday w/ acute onset of epigastric abdominal pains w/ radiation around to both sides towards the flank. Initially thought it was her GERD acting up and took extra Tagamet but when pain worsened she came to the ED yesterday. She was found to have elevated lipase 98, but normal total bilirubin 0.7, normal transaminases, normal alkaline phosphatase , normal troponin I, normal procalcitonin but elevated lactate 2.8 which has remained elevated at 3.1. She also had elevated CRP 1.88 which has risen to 4.5. CT abdomen and pelvis demonstrated cirrhosis, patent portal and mesenteric veins, cholelithiasis but contracted gallbladder, no biliary ductal dilatation, pancreas normal w/ no calcifications or inflammatory process, splenomegaly, no adrenal masses, normal kidney sizes w/out stones, simple cyst in right kidney. Abdominal aorta nondilated w/ atherosclerosis and stenosis right proximal iliac. Diverticulosis but no diverticulitis, some small bowel wall thickening on the left.T12 fracture. Enlarged lymph nodes in upper abdomen. She says that pain has improved a little overnight but this afternoon is starting to increase. She says that it worse w/ movement such as walking (she was up walking figueroa when I came to her room.) She has no vomiting and has tolerated clear liquids so far. She denies any hematochezia or melena. She does give hx of chronic iron deficiency and has had multipel scopes including EGD and colonoscopy at [facility] [place]. She says she is scheduled for pill camera later this summer. Exam Narrative Exam Narrative: Alayna does not look toxic, she was walking the figueroa when I approached her room although she was holding her abdomen She is alert/oriented, pleasant answering all of my questions Abdomen: distended, rounded, firm but not rigid, a few scattered bowel sounds, but not high pitched, she is tender over epigastrium but also over RUQ and LUQ, not tender over lower quadrants. She has some voluntary guarding but no rebound tenderness. Objective Last Vital Signs Temp 37.6 C H 08/31/23 07:15 Pulse 73 08/31/23 07:15 Resp 16 08/31/23 07:15 BP 138/69 08/31/23 07:15 Pulse Ox 96 08/31/23 07:15 Laboratory Results - last 24 hr 08/30/23 08/30/23 08/30/23 20:38 20:40 22:00 WBC 8.25 RBC 4.43 Hgb 12.2 Hct 37.4 MCV 84 MCH 27.5 MCHC 32.6 RDW 17.5 H Plt Count 141 MPV 10.4 Immature Gran % 0.5 Neutrophils % 79.5 Lymphocytes % 12.4 Monocytes % 6.1 Eosinophils % 1.1 Basophils % 0.4 Nucleated RBC % 0.0 Absolute Neutrophils 6.57 Absolute Lymphocytes 1.02 L Absolute Monocytes 0.50 Absolute Eosinophils 0.09 Absolute Basophils 0.03 ESR 20 VBG Lactate 2.8 H* Sodium 141 Potassium 3.7 Chloride 102 Carbon Dioxide 27.0 Anion Gap 12.0 H BUN 19 H Creatinine 1.0 Est GFR (CKD-EPI 2020) 60.23 Glucose 214 H Calcium 9.2 Total Bilirubin 0.7 Conjugated Bilirubin 0.3 H AST 13 L ALT 38 Alkaline Phosphatase 92 Troponin I < 50 C-Reactive Protein 1.88 H Total Protein 7.4 Albumin 3.9 Lipase 98 H Procalcitonin < 0.1 Urine Color Yellow Urine Clarity Sl Cloudy Urine pH 5.5 Ur Specific [place] 1.010 Urine Protein Negative Urine Ketones Negative Urine Blood Trace-intact H Urine Nitrite Negative Urine Bilirubin Negative Urine Urobilinogen 0.2 Ur Leukocyte Esterase Small H Urine RBC Urine WBC >50 H Ur Epithelial Cells Moderate Urine Crystals Negative Urine Bacteria Moderate Urine Mucus Negative Ur Culture Indicated? No/Sq. Contamination Urine Glucose Negative 08/30/23 08/31/23 08/31/23 22:44 01:07 06:18 WBC 4.87 RBC 3.86 L Hgb 10.9 L Hct 32.3 L MCV 84 MCH 28.2 MCHC 33.7 RDW 17.6 H Plt Count 106 L MPV 10.6 Immature Gran % 0.4 Neutrophils % 75.8 Lymphocytes % 14.0 Monocytes % 8.6 Eosinophils % 0.8 Basophils % 0.4 Nucleated RBC % 0.0 Absolute Neutrophils 3.69 Absolute Lymphocytes 0.68 L Absolute Monocytes 0.42 Absolute Eosinophils 0.04 Absolute Basophils 0.02 ESR VBG Lactate 3.0 H* Sodium 141 Potassium 3.9 Chloride 104 Carbon Dioxide 26.0 Anion Gap 11.0 BUN 17 Creatinine 1.0 Est GFR (CKD-EPI 2020) 60.23 Glucose 130 H Calcium 8.6 Total Bilirubin 1.0 Conjugated Bilirubin AST 11 L ALT 27 Alkaline Phosphatase 74 Troponin I C-Reactive Protein Total Protein 6.4 Albumin 3.4 Lipase Procalcitonin Urine Color Yellow Urine Clarity Clear Urine pH 5.0 Ur Specific [place] <= 1.005 Urine Protein Negative Urine Ketones Negative Urine Blood Negative Urine Nitrite Negative Urine Bilirubin Negative Urine Urobilinogen 0.2 Ur Leukocyte Esterase Negative Urine RBC Urine WBC Ur Epithelial Cells Urine Crystals Urine Bacteria Urine Mucus Ur Culture Indicated? Urine Glucose Negative 08/31/23 13:00 WBC RBC Hgb Hct MCV MCH MCHC RDW Plt Count MPV Immature Gran % Neutrophils % Lymphocytes % Monocytes % Eosinophils % Basophils % Nucleated RBC % Absolute Neutrophils Absolute Lymphocytes Absolute Monocytes Absolute Eosinophils Absolute Basophils ESR VBG Lactate 3.1 H* Sodium Potassium Chloride Carbon Dioxide Anion Gap BUN Creatinine Est GFR (CKD-EPI 2020) Glucose Calcium Total Bilirubin Conjugated Bilirubin AST ALT Alkaline Phosphatase Troponin I C-Reactive Protein 4.50 H Total Protein Albumin Lipase Procalcitonin Urine Color Urine Clarity Urine pH Ur Specific [place] Urine Protein Urine Ketones Urine Blood Urine Nitrite Urine Bilirubin Urine Urobilinogen Ur Leukocyte Esterase Urine RBC Urine WBC Ur Epithelial Cells Urine Crystals Urine Bacteria Urine Mucus Ur Culture Indicated? Urine Glucose Time Spent with Patient Time Spent with Patient: >50 minutes Time was spent: preparing to see the patient(eg.review tests), obtaining and/or reviewing separately otained hiistory, ordering medications,tests, procedures, referring, communicating with other health pet care attendant (Dr. Joseph Mcdowell), indepentently interpreting results, counseling the patient and care coordination
[2023-08-31] MEDS: Normal Saline 1,000 ML 250 ML IV (15:05)
[2023-08-31] MEDS: Normal Saline Flush 10 ML SYR IVP ×2 (15:06→19:54)
[2023-08-31 15:14] LABS: Lipase 63 U/L (16-77)
[2023-08-31] MEDS: Omnipaque 350 MG/ML 100 ML BTL IJ (15:27)
--- NOTE | 2023-08-31 15:47 | PHA.REVIEW2 ---
Pharmacy Admission Review Admission Clinical Review Admission Pharmacy Review: Elevated lipase (Acute) Cholelithiasis (Acute) Lactate blood increased (Acute) Pyuria (Acute) Epigastric abdominal pain (Acute) Enteritis (Acute) Portal hypertension (Acute) ciprofloxacin Allergy (Intermediate, Verified 08/30/23 20:19) Skin Rash lisinopril Adverse Reaction (Intermediate, Verified 08/30/23 20:19) cough simvastatin Adverse Reaction (Intermediate, Verified 08/30/23 20:19) fatigue codeine [Codeine] Adverse Reaction (Verified 08/30/23 20:19) nausea/vomiting Resuscitation Status Full Code Height 5 ft 5 in Weight 66 kg Pharmacy Admission Review Renal Dosing Renal Dosing: BUN 17 mg/dL (7-18) 08/31/23 06:18 Creatinine 1.0 mg/dL (0.55-1.02) 08/31/23 06:18 Medications needing adjustments: Reviewed (CrCl 53.55 mL.min) List of meds needing interventions: Current medications are okay Anticoagulation Anticoagulation: Hgb 10.9 g/dL (11.2-15.7) L 08/31/23 06:18 Hct 32.3 % (36.0-46.0) L 08/31/23 06:18 Plt Count 106 10^3/uL (130-400) L 08/31/23 06:18 Creatinine 1.0 mg/dL (0.55-1.02) 08/31/23 06:18 DVT Prophylaxis: Reviewed Medications: Enoxaparin (40mg daily) Opiate Usage Evaluate Pain Scale/Pains Meds: Reviewed (PRN IVP hydromorphone - 1 dose given so far) Scheduled Bowel Reg ordered if on Opiates?: No Relevant Labs Relevant Labs: ESR 20 mm/hr (0-30) 08/30/23 20:40 Sodium 141 mmol/L (136-145) 08/31/23 06:18 Potassium 3.9 mmol/L (3.5-5.1) 08/31/23 06:18 Chloride 104 mmol/L (98-107) 08/31/23 06:18 C-Reactive Protein 4.50 mg/dL (<or=0.5) H 08/31/23 13:00 Electrolytes, C-Reactive P, ESR: Reviewed (Hgb decreased from 12.2 to 10.9) DM Control DM Control: Glucose 130 mg/dL (74-106) H 08/31/23 06:18 Finger Stick Blood Glucose 95 1131 Finger Stick Blood Glucose 95 1131 Finger Stick Blood Glucose 116 0758 Finger Stick Blood Glucose 116 0758 DM Control: Reviewed Insulin Dosing, Diabetic Medication: Has order for SS insulin and 25 units of glargine daily Cardiac Review Cardiac Review: Troponin I < 50 ng/L (< or =60) 08/30/23 20:38 BP, HR, EF%: Reviewed (HR and BP WNL, temp of 37.6 C at 0715) QTc Review QTc: Reviewed (455 from 08/31/23) IV to PO Switch IV Medications: Reviewed (hydromorphone and pantoprazole) Home Meds Home Med List reviewed: Reviewed Relevent Home Meds Not ordered & why?: metformin (on hold per H+P), cimetidine, glimepiride (on hold per H+P), Victoza (on hold per H+P), methocarbamol (PRN), omeprazole (has order for pantoprazole), rosuvastatin, Entyvio (once monthly infusion) Current Meds Current Medication Order Review: Intervened Comments: Added IV admin order set Pharmacy Antibiotic Review Relevant Labs: Relevant Labs 08/31/23 08/30/23 08/30/23 13:00 20:40 20:38 C-Reactive Protein 4.50 H 1.88 H Procalcitonin < 0.1
[2023-08-31 15:50] VITALS: BP 151/55; PULSE 67; RESP 15; TEMP 37.1; O2SAT 98
--- NOTE | 2023-08-31 16:00 | CHAPLAIN ---
Terrie was up in a chair when I visited. 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 Her has been in to visit. I explained my role and offered support.
--- NOTE | 2023-08-31 18:30 | DI.VRAD_ITS ---
PROCEDURE INFORMATION: Exam: CTA Abdomen and Pelvis With Contrast Exam date and time: 08/31/2023 3:23 PM Age: 72 years old Clinical indication: Abdominal pain; Other: Abdomen pain TECHNIQUE: Imaging protocol: Computed tomographic angiography of the abdomen and pelvis with contrast. Exam focused on the arteries. 3D rendering (Not supervised by radiologist): MIP and/or 3D reconstructed images were created by the technologist. Contrast material: OMNIPAQUE; Contrast volume: 100 ml; Contrast route: INTRAVENOUS (IV); COMPARISON: CT ABDOMEN PELVIS WO/W 08/30/2023 9:34 PM FINDINGS: Lungs: Lung bases are clear. Pleural spaces: No pleural effusion. Heart: Normal heart size. No pericardial effusion. No coronary artery atherosclerotic calcium is visible. Aorta: Abdominal aorta atherosclerotic calcium. No aneurysmal change. Celiac trunk and mesenteric arteries: Celiac artery is widely patent. Superior mesenteric artery origin atherosclerotic calcium. Mild stenosis at 30% diameter. Renal arteries: Right renal artery origin atherosclerotic calcium with severe stenosis at 80% diameter. Left renal artery origin atherosclerotic calcium with severe stenosis at 70% diameter. Right iliac arteries: Right common iliac artery atherosclerotic calcium with severe stenosis at greater than 90%. Left iliac arteries: Left proximal common iliac artery atherosclerotic calcium with mild stenosis at 20 % diameter. Veins: Portal vein is patent, but prominent. Diameter of the main portal vein is 1.9 cm. This suggest portal hypertension. Liver: Liver with slight surface nodularity consistent with cirrhosis. No focal hepatic lesions. Gallbladder and bile ducts: Gallstone within the gallbladder. No acute biliary tract findings. Pancreas: Unremarkable. No mass. No ductal dilation. Spleen: Splenomegaly. AP length of spleen 16.9 cm. Transverse diameter of spleen 6.3 cm. Cephalo caudal splenic length 15.5 cm. Adrenal glands: Unremarkable. No mass. Kidneys and ureters: Unremarkable. No solid mass. No hydronephrosis. Stomach and bowel: Gastric contour and morphology are unremarkable. Small sliding hiatal hernia. No acute change. Small bowel loops are unremarkable in course and caliber. No obstruction or edema. Large bowel is unremarkable in course and caliber. Scattered minor diverticulosis without acute diverticulitis. No large bowel edema or obstructive features. There is a relative paucity of formed feces. Appendix: Previous appendectomy. Intraperitoneal space: Nonspecific minor free fluid in the pelvic cul-de-sac. Lymph nodes: Unremarkable. No enlarged lymph nodes. Urinary bladder: Urinary bladder is unremarkable in appearance. No wall thickening. No intravesicular calculi. No intravesicular gas. Reproductive: The uterus and adnexa are unremarkable in appearance. There are no dominant adnexal cysts or masslike features. There are no inflammatory features. No uterine mass evident. Bones/joints: Degenerative thoracolumbar spine features. Old compression fracture at T12. Mild loss of height. Soft tissues: Subcutaneous stranding of the right abdominal wall which is nonspecific. This is unchanged since previous study performed yesterday. Recommend clinical correlation. cannot exclude a minor area of cellulitis.. IMPRESSION: 1. No abdominal aortic aneurysm or occlusive change. 2. Celiac artery is widely patent. Superior mesenteric artery origin mild stenosis. 3. Bilateral severe renal artery stenosis. 4. Severe right common iliac artery stenosis. 5. Cirrhotic liver features. No focal hepatic change. 6. Splenomegaly. 7. Gallstone. No acute biliary tract findings. 8. Nonspecific minor free fluid in the pelvis. 9. No significant interval change since 08/30/2023. 10. Subcutaneous fatty stranding of the right lower abdominal wall. cannot exclude an area of minor cellulitis. Recommend clinical correlation. See series 10: Image 55. Similar finding on study from yesterday. Dictated and Authenticated by: Ventura Herring MD. [facility] Concepcion Gomez MD
[2023-08-31 19:17] LABS: Lactate 2.2 mmol/L (0.6-1.4)
[2023-08-31 19:23] VITALS: BP 152/60; PULSE 75; RESP 18; TEMP 36.7; O2SAT 96
[2023-09-01] MEDS: Levothyroxine 25 MCG TAB PO (05:43)
[2023-09-01 07:12] VITALS: BP 140/73; PULSE 72; RESP 16; TEMP 37.3; O2SAT 96
[2023-09-01 08:08] LABS: Abs Immature Grans 0.01 10^3/uL (0.0-0.06); Absolute Basophil Count 0.02 10^3/uL (0.0-0.2); Absolute Eosinophil Count 0.08 10^3/uL (0.0-0.7); Absolute Lymphocyte Count 0.56 10^3/uL (1.2-3.4); Absolute Monocyte Count 0.25 10^3/uL (0.1-0.8); Absolute Neutrophil Count 3.11 10^3/uL (1.2-6.7); Basophils % 0.5 %; HCT 34.5 % (36.0-46.0); HGB 11.6 g/dL (11.2-15.7); Immature Grans % 0.2 %; Lymphocytes % 13.9 %; MCH 28.2 pg (27.0-33.0); MCHC 33.6 % (32.0-36.0); MCV 84 fL (80-95); MPV 10.4 fL (8.0-11.0); Monocytes % 6.2 %; Neutrophils % 77.2 %; Platelet Count 119 10^3/uL (130-400); RBC 4.12 10^6/uL (3.93-5.22); RDW 17.7 % (11.7-14.6); WBC 4.03 10^3/uL (4.4-10.8)
[2023-09-01 08:29] LABS: ALT 34 U/L (14-59); AST 18 U/L (15-37); Albumin 3.6 g/dL (3.4-5.0); Alkaline Phosphatase 82 U/L (46-116); Anion Gap 11.3 mmol/L (3-11); BUN 9 mg/dL (7-18); Bilirubin, Total 1.1 mg/dL (0.2-1.0); C-Reactive Protein 3.65 mg/dL (<or=0.5); CO2 26.7 mmol/L (21.0-32.0); CREATININE 0.8 mg/dL (0.55-1.02); Calcium 8.7 mg/dL (8.5-10.1); Chloride 104 mmol/L (98-107); Estimated GFR 78.72 (mL/min/1.73m2); Glucose 132 mg/dL (74-106); Lipase 41 U/L (16-77); Potassium 3.9 mmol/L (3.5-5.1); Sodium 142 mmol/L (136-145); Total Protein 6.9 g/dL (6.4-8.2)
[2023-09-01] MEDS: hydroCHLOROthiazide 25 MG TAB PO (08:43)
[2023-09-01] MEDS: Metoprolol 12.5 MG TAB 25 MG PO (08:43)
[2023-09-01] MEDS: Losartan 50 MG TAB 100 MG PO (08:44)
[2023-09-01] MEDS: Normal Saline Flush 10 ML SYR IVP (08:44)
[2023-09-01] MEDS: Pantoprazole 40 MG VIAL IVP (08:44)
[2023-09-01] MEDS: Acetaminophen 325 MG TAB PO ×2 (08:45→14:22)
--- NOTE | 2023-09-01 08:59 | CMPROGNOTE_ITS ---
Date of service: 09/01/23 Time of Service: 08:59 Care Management Progress Note Progress Note Text Progress Note Text: Terrie was sitting up in a chair visiting with her when CM met with her. She was in good spirits and stated that she feels good. Her pain is controlled and she is tolerating a diet. Terrie stated she would like to go home and believes she may be discharge later. Discharge Potential Discharge Needs: PCP F/U Appt Anticipated Barriers to Discharge: None Identified Patient/Family Education Needs: Review discharge instructions, discuss Ask Me Three Transportation: Private vehicle Plan: Anticipate Terrie will be discharged home with no new services when medically cleared. She will follow up with her providers,both locally and at [facility] [place], and will transport with family. CM will follow and continue to assess for discharge needs. SDOH(Care Management) Screening Will the Patient Participate in the Screening?: Yes Do you worry about having a steady place to live?: no Problems where you live: Carbon monoxide detectors missing or not working In the past 12 months, have you had to go without electric, gas, oil or water in your home?: no Have you or anyone in your house had to go without enough food to eat?: no Has lack of transportation kept you from medical appointments or from doing things needed for daily living?: no Has anyone in your support network made you feel unsafe for any reason?: no Health Related Social Needs Health related social needs: inadequate housing(Z59.1)
[2023-09-01] MEDS: Insulin Aspart 300 UNITS/3 ML PEN SC (09:05)
[2023-09-01] MEDS: Insulin Glargine 300 UNITS/3 ML PEN 25 UNITS SC (09:12)
--- NOTE | 2023-09-01 11:51 | PGE_ITS ---
Date of Service Date of service: 09/01/23 Time of Service: 11:51 Assessment and Plan Assessment and plan (1) Epigastric abdominal pain: Status: Acute Assessment and plan: ddx: PUD, pancreatitis, ischemic bowel, cholelithiasis/cholecystitis. CTA abdomen and pelvis was done yesterday. she has vascular disease w/ bilateral renal artery stenosis, right common iliac stenosis but she does not have any critical narrowing of her SMA, GILL or celiac arteries. I think keeping her on PPI, keeping her off the liraglutide and then have her follow up w/ surgeon to discuss elective cholecystectomy would be appropriate. (2) Lactate blood increased: Status: Acute Assessment and plan: may be d/t her metformin but given her sudden abdominal pains and persistent lactate elevation I think mesenteric ischemia needs to be ruled out (3) Elevated lipase: Status: Acute Assessment and plan: I think her elevated lipase was from her liraglutide and this has since resolved . she never had any imaging showing signs of acute nor chronic pancreatitis. (4) Cholelithiasis: Status: Acute Assessment and plan: gall stones but no biliary ductal dilatation and contracted gall bladder w/ normal LFT/bilirubin so unlikely she passed a gall stone. She understands that she still should consider having elective cholecystectomy but at this time does not need this done urgently as there was no evidence for acute cholecystitis. Qualifiers: Cholelithiasis location: gallbladder Cholecystitis presence: without cholecystitis Biliary obstruction: without biliary obstruction Qualified Code(s): K80.20 - Calculus of gallbladder without cholecystitis without obstruction (5) Diabetes mellitus, type 2: Assessment and plan: continue basal/bolus insulin Qualifiers: Diabetes mellitus nursing home insulin use: with long term care social worker use Diabetes mellitus complication status: without complication Qualified Code(s): E11.9 - Type 2 diabetes mellitus without complications; Z79.4 - equipment operator intermodal yard (current) use of insulin (6) Portal hypertension: Status: Chronic Assessment and plan: avoid liraglutide or any SGLT-2. (7) Liver cirrhosis secondary to nonalcoholic steatohepatitis (SILVESTRE): Status: Chronic (8) Splenomegaly: Status: Chronic (9) Crohn's disease: Status: Chronic Qualifiers: Gastrointestinal tract location: unspecified location Digestive disease complication type: other complication Qualified Code(s): K50.918 - Crohn's disease, unspecified, with other complication (10) GERD (gastroesophageal reflux disease): Assessment and plan: continue protonix will discharge her home w/ Rx Qualifiers: Esophagitis presence: esophagitis presence not specified Qualified Code(s): K21.9 - Gastro-esophageal reflux disease without esophagitis (11) Essential hypertension: Status: Chronic Assessment and plan: continue losartan, HCTZ Subjective Subjective Interval history since last seen: Alayna feels better but still w/ some epigastric abdominal pain. LFT and lipase are all normal today. CRP however remains a bit elevated at 3.65. She is afebrile and denies any nausea or vomting. She would like to go home. I told her that I would like to first advance her diet and see how she does w/ regular foods. If her pain worsens or she developes nausea or vomiting then I thin she should hold off discharge today but if she does well I am ok w/ discharge pr ovided she understands that any worsening of her pain, fever, vomting or inability to pass BM she should return. I explained to her that while her labs have improved, she still has gallstones albeit no radiologic evidence for acute cholecystitis nor evidence forductal dilatation. Exam Narrative Exam Narrative: Alayna is seen walking around her room, no distress Abdomen: softer today, still some tenderness in the epigastrium but no rebound or guarding and abdomen is not distended and no longer firm Objective Last Vital Signs Temp 37.3 C 09/01/23 07:12 Pulse 72 09/01/23 07:12 Resp 16 09/01/23 07:12 BP 140/73 09/01/23 07:12 Pulse Ox 96 09/01/23 07:12 Laboratory Results - last 24 hr 08/31/23 08/31/23 08/31/23 06:18 13:00 19:10 WBC 4.87 RBC 3.86 L Hgb 10.9 L Hct 32.3 L MCV 84 MCH 28.2 MCHC 33.7 RDW 17.6 H Plt Count 106 L MPV 10.6 Immature Gran % 0.4 Neutrophils % 75.8 Lymphocytes % 14.0 Monocytes % 8.6 Eosinophils % 0.8 Basophils % 0.4 Nucleated RBC % 0.0 Absolute Neutrophils 3.69 Absolute Lymphocytes 0.68 L Absolute Monocytes 0.42 Absolute Eosinophils 0.04 Absolute Basophils 0.02 VBG Lactate 3.1 H* 2.2 H* Sodium 141 Potassium 3.9 Chloride 104 Carbon Dioxide 26.0 Anion Gap 11.0 BUN 17 Creatinine 1.0 Est GFR (CKD-EPI 2020) 60.23 Glucose 130 H Calcium 8.6 Total Bilirubin 1.0 AST 11 L ALT 27 Alkaline Phosphatase 74 C-Reactive Protein 4.50 H Total Protein 6.4 Albumin 3.4 Lipase 63 08/31/ 06:50 WBC 4.03 L RBC 4.12 Hgb 11.6 Hct 34.5 L MCV 84 MCH 28.2 MCHC 33.6 RDW 17.7 H Plt Count 119 L MPV 10.4 Immature Gran % 0.2 Neutrophils % 77.2 Lymphocytes % 13.9 Monocytes % 6.2 Eosinophils % 2.0 Basophils % 0.5 Nucleated RBC % 0.0 Absolute Neutrophils 3.11 Absolute Lymphocytes 0.56 L Absolute Monocytes 0.25 Absolute Eosinophils 0.08 Absolute Basophils 0.02 VBG Lactate Sodium 142 Potassium 3.9 Chloride 104 Carbon Dioxide 26.7 Anion Gap 11.3 H BUN 9 Creatinine 0.8 Est GFR (CKD-EPI 2020) 78.72 Glucose 132 H Calcium 8.7 Total Bilirubin 1.1 H AST 18 ALT 34 Alkaline Phosphatase 82 C-Reactive Protein 3.65 H Total Protein 6.9 Albumin 3.6 Lipase 41 Time Spent with Patient Time Spent with Patient: 25-34 minutes Time was spent: preparing to see the patient(eg.review tests), ordering medications,tests, procedures, referring, communicating with other health residential care facility manager, indepentently interpreting results, counseling the patient and care coordination
[2023-09-01 12:45] LABS: Lactate 1.9 mmol/L (0.6-1.4)
[2023-09-01 13:51] LABS: Lab Add On Test Done
[2023-09-01 15:03] VITALS: BP 149/52; PULSE 71; RESP 17; TEMP 37.2; O2SAT 96
--- NOTE | 2023-09-01 16:38 | W.PM.DS.N ---
Date of service: 09/01/23 Time of Service: 16:39 DS: Diagnosis Discharge Diagnosis (1) Epigastric abdominal pain: Status: Resolved Asessment and Plan: See admission H&P and ER note for details of patient's presenting symptoms and history. In summary this 72-year-old female with history of GERD, Crohn's, diabetes mellitus type 2 on liraglutide insulin and metformin, SILVESTRE with cirrhosis and portal hypertension presented with acute onset of epigastric abdominal pain beginning at 3 PM on the day of admission. Workup included labs that showed an elevated lipase of 98 with a normal procalcitonin less than 0.1 and normal LFTs including total bilirubin of 0.7 normal transaminases and normal alkaline phosphatase. Blood lactate was elevated at 2.8 later rising to as high as 3.1 CBC showed no anemia and no leukocytosis. Initial urinalysis was contaminated with epithelial cells and had pyuria and was mistakenly thought to represent UTI but repeat urinalysis a few hours later was totally negative. Imaging included an abdominal pelvic CT scan with and without contrast which showed hepatic cirrhosis hepatosplenomegaly small amount of abdominal ascites and suggestion of portal hypertension. She was also found to have some upper abdominal adenopathy and a new compression fracture T12 and mild wall thickening loops of small bowel in the left abdomen suspicious for an enteritis. However patient had no history of diarrhea. Of note her pancreas showed normal density with no calcifications and no inflammatory process. Portal superior mesenteric and splenic veins are unremarkable. Her abdominal aorta had calcifications but no aneurysm and there is marked stenosis of the proximal right common iliac artery. Patient had diverticulosis but without evidence of diverticulitis there is no evidence of bowel obstruction. There is mild bowel wall thickening and some loops of small bowel in the left abdomen but no evidence for appendicitis. Gallbladder showed cholelithiasis but the gallbladder itself was contracted and there was no biliary ductal dilatation. Patient was admitted to the hospital for IV fluid hydration pain medications and IV Protonix for empiric coverage for peptic ulcer disease. Surgical consultation was obtained with Dr. Joseph Mcdowell please see his note for details. Patient also had a chest x-ray on admission from the ER that showed no acute pathology. Patient was given IV fluid hydration serial labs were monitored including CMP CBC lipase and lactate levels. Initially the thinking was that the patient had gallstone pancreatitis however upon review of her images and her labs this did not fit the picture for an acute gallstone pancreatitis even if she had possibly passed a stone prior to arrival to the emergency room. Reasoning against gallstone pancreatitis as the patient had no gallbladder wall thickening or gallbladder dilatation and no biliary ductal dilatation and no inflammatory changes of the pancreas. Furthermore she never had an elevated alkaline phosphatase nor was her total bilirubin elevated and the rest of her transaminases were normal. It was surmised that she had an adverse event from her liraglutide which is an SGLT2 inhibitor who is known side effects can be acute pancreatitis or acute elevation of her lipase. Lactic acid was also felt to be secondary to this although concomitant adverse reaction of elevated lactate from metformin cannot be excluded but less likely. Repeat CT scan of the abdomen pelvis this time with angiography was performed to rule out ischemic bowel disease. CT angiogram of the abdomen and pelvis demonstrated that she has atherosclerotic changes involving her renal arteries as well as the right common iliac artery but she had no acute occlusion of her celiac or her SMA or GILL arteries. She has moderately severe stenosis at the origin of her renal arteries bilaterally as well as severe stenosis at the origin of the right common iliac artery. Given these findings were discussed with the patient and her . Also the follow-up CTA of the abdomen pelvis on 08/31/2023 again showed cholelithiasis but no biliary ductal dilatation. Over the next couple days her abdominal pain subsided she was tolerating full liquids and then she was advanced to a low-fat regular diet on the day of discharge which she tolerated quite well. As she was not requiring any narcotic pain medications and was tolerating a diet the patient was desiring to return home and was discharged home in much improved condition. Both the patient and her were educated regarding her findings including the fact that she does have residual gallstones but no evidence of acute cholecystitis and no evidence of acute pancreatitis. It was explained to both him that the elevated lipase and lactate were likely secondary to her liraglutide and they were advised to discontinue use of liraglutide (Victoza). She was advised if needed she can increase her glargine dose by 10 to 15% with close monitoring of her blood sugars. She is advised to call her primary care provider and set up follow-up within the next 1 to 2 weeks. She is also advised to follow-up with Dr. Joseph Mcdowell or the surgeon of her choice to discuss elective cholecystectomy. (2) Lactate blood increased: Status: Resolved Asessment and Plan: Elevated blood lactate of 2.8 on admission peaked at 3.1 on 08/31/2023 and came down to 1.9 on 09/01/2023. Most likely cause is liraglutide. (3) Elevated lipase: Status: Resolved Asessment and Plan: Lipase was elevated at 98 on admission came down overnight to 63 and was down to 41 at the time of discharge. This was also accompanied by an elevated CRP of 1.88 on admission peaking at 4.5 but declined down to 3.65 at the time of discharge. Again this was felt to be secondary to her liraglutide. (4) Cholelithiasis: Status: Chronic Asessment and Plan: Cholelithiasis without evidence for acute cholecystitis. Follow-up with Dr. Joseph Mcdowell within the next 2 to 4 weeks to discuss timing of elective cholecystectomy versus referral to tertiary [facility] for surgery. (5) Diabetes mellitus, type 2: Asessment and Plan: Resume metformin and insulin but discontinue liraglutide, monitor blood sugars 2-3 times a day. Follow-up with primary care provider in the next week. (6) Portal hypertension: Status: Chronic (7) Liver cirrhosis secondary to nonalcoholic steatohepatitis (SILVESTRE): Status: Chronic (8) Splenomegaly: Status: Chronic (9) Crohn's disease: Status: Chronic (10) GERD (gastroesophageal reflux disease): (11) Essential hypertension: Status: Chronic Discharge Plan Disposition Patient Disposition: Home Condition: Improving Discharge Details Reason For Visit: acute abdominal pain, pancreatitis Admit Date/Time: 08/31/23 00:22 Admit Provider: Maynor Monroe Attending Provider: Maynor Monroe Primary Care Provider: Grace Becerril Home Meds and New Rx's Prescriptions: Continued lorazepam 0.5 mg tablet 0.5 mg SL TID PRN (Reason: anxiety) Qty: 10 0RF Rx Instructions: take 1st tab [place] airport, repeat with 1/2-1 tab q 4 hrs prn methocarbamol 500 mg tablet 500 - 1,000 mg PO TID PRN (Reason: back muscle spasm) Qty: 40 0RF glimepiride 2 mg tablet 2 mg PO QAM Qty: 90 3RF Rx Instructions: administer with breakfast--DOSE REDUCTION 01/30/23 (A1C 5.9%) rosuvastatin 5 mg tablet 5 mg PO .every other night Qty: 45 3RF metformin 500 mg tablet 1,000 mg PO BID Qty: 360 3RF metoprolol tartrate 25 mg tablet 25 mg PO BID Qty: 180 3RF losartan-hydrochlorothiazide 100-25 mg tablet 1 tab PO .daily in AM Qty: 90 3RF Rx Instructions: PHARM: Note new COMBINED medication for Pat's BP (stop Losartan & HCTZ individually); 05/08/23 (DME) lancets [OneTouch UltraSoft Lancets] 1 EACH misc 1 ea Miscellaneous DAILY ONETOUCH ULTRA TEST STRIPS 1 EACH strip 1 ea Miscellaneous TID Qty: 300 Rx Instructions: Pt needing to test TID while titrating insulin dose for DM (E11.9) management to have A1c less than 7.5 Entyvio 300 mg recon soln 300 mg IV Q4W Rx Instructions: administer 2nd dose 2 weeks after first dose; administer over 30 minutes, infusions as directed by Dr Robb. changed to every 4 weeks per [facility] [place] 07/01/21 [facility] [place] note omeprazole 20 mg capsule,delayed release(DR/EC) See Rx Instructions .ROUTE .COMPLEX Qty: 90 3RF Dose Instruction: TAKE 1 CAPSULE BY MOUTH DAILY NEEDED FOR GERD Rx Instructions: TAKE 1 CAPSULE BY MOUTH DAILY NEEDED FOR GERD (DME) pen needle, diabetic [BD Ultra-Fine Mini Pen Needle] 31 gauge x 3/16 needle See Rx Instructions .ROUTE .COMPLEX Qty: 100 3RF Dose Instruction: USE TO INJECT INSULIN TO MAINTAIN A1C LESS THAN 7 Rx Instructions: USE TO INJECT INSULIN TO MAINTAIN A1C LESS THAN 7 insulin glargine [Basaglar KwikPen U-100 Insulin] 100 unit/mL (3 mL) insulin pen See Rx Instructions .ROUTE .COMPLEX Qty: 60 6RF Dose Instruction: INJECT 25 UNITS UNDER THE SKIN ONCE DAILY. MAXIMUM DAILY DOSE: 40 UNITS. Rx Instructions: INJECT 25 UNITS UNDER THE SKIN ONCE DAILY. MAXIMUM DAILY DOSE: 40 UNITS. levothyroxine 25 mcg tablet See Rx Instructions .ROUTE .COMPLEX Qty: 90 3RF Dose Instruction: TAKE ONE TABLET BY MOUTH DAILY ON AN EMPTY STOMACH APPROXIMATELY 30 MINUTES APART FROM OTHER MEDICATIONS AND FOOD Rx Instructions: TAKE ONE TABLET BY MOUTH DAILY ON AN EMPTY STOMACH APPROXIMATELY 30 MINUTES APART FROM OTHER MEDICATIONS AND FOOD cimetidine 200 mg Tablet 200 mg PO PRN PRN Discontinued Victoza 3-Melquiades 0.6 mg/0.1 mL (18 mg/3 mL) pen injector 1.2 mg subcut DAILY Qty: 6 6RF Discharge Instructions Instructions: Crohn disease in adults, Gallstones (DC), Lipase Blood Test Additional Instructions: You were admitted w/ symptoms of epigastric abdominal pain and were found to have elevated lipase (a pancreatic enzyme) and elevated lactic acid. You had a CT scan of your abdomen and pelvis which demonstrated gallstones however, there were no signs of acute cholecystitis (i.e. your gallbladder was not distended, there was no visible obstruction of the cystic or common bile duct and no thickening of the gallbladder wall and no fluid around the gallbladder). Also your pancreas did not look inflamed. Upon further review of you medications it was decided that the most plausible explaination for both the lactic acidosis and elevated lipase was your use of liraglutide (Victoza). Victoza is a diabetic agent in the SGLT-2 inhibiotr category (a group of diabetic medications which carry the risk of acute pancreatitis. Since we have held your Victoza your abdominal pains have gradually calmed down to the point you are now able to eat w/ out severe pain or vomiting. Your lipase has normalized now. You lactic acid is near normal now. We repeat your urinalysis upon admission and there was no evidence for urinary tract infection and your blood cultures also showed no blood stream infection. CTA of your abdomen was done to rule out ischemic bowel (i.e. diminished blood flow to intestines/pancreas/liver/kidneys) and while you have atherosclerosis i.e. cholesterol plaques in the arteries w/ moderate to severe narrowing of the renal arteries and the right common iliac artery (the artery which lead from pelvis into the left thigh), there was no acute blockage to cause ischemia. At this point you can resume your metformin and your insulin to control your diabetes but I am recommending that you stay off the liraglutide (Victoza). Follow up w/ your primary care provider in the next 1 to 2 weeks. If you have recurrent abdominal pain, nausea/vomiting, fever or chills please return to the emergency room. You still have gall stones which at any time can cause an acute blockage of the cystic or common bile duct and lead to acute cholecystitis or pancreatitis. You should follow up w/ a surgeon in the next 2 to 4 weeks to discuss having elective cholecystectomy (removal of your gallbladder). You were seen by our surgeion, Dr. Joseph Mcdowell who will be happy to follow up w/ you in the office. Stand Alone Forms: Nursing Discharge Form Referrals: Grace Becerril, GYROSCOPE TECHNICIAN [Primary Care Provider] - (Please call the office to make a follow up apt on Monday within 10-14 days. ) Joseph Mcdowell MD [ [facility] STAFF PHYSICIAN] - (call the office on Monday for follow up in the next 2 to 4 weeks) Activity:: Activity as Tolerated Equipment/Supplies:: No Equipment Needed Diet:: low fat Discharge Orders Discharge Orders: Discharge Order (Routine); Ordered 09/01/23 Ordered By: Jason Javier Other Ambulatory Orders: Comprehensive Metabolic Panel (Routine) Timeframe: 1 Week Facility: [facility] - Location: Laboratory Outpatient - [facility] Ordered By: Jason Javier Lipase (Routine) Timeframe: 1 Week Facility: [facility] - Location: Laboratory Outpatient - [facility] Ordered By: Jason Javier DS: Summary Time Spent with Patient providing and/or coordinating discharge services: Greater than 30 minutes Specific discharge activities: Interview/exam of patient; review of discharge instructions, completion of prescriptions/discharge instructions; discussion w/ nursing and CM; documentation of hospital visit Status at Discharge Functional status at discharge: independent ambulation Overall status at discharge: patient is progressing back to baseline Mental Status: mental status grossly normal Speech and Movement: speech and movement normal Mood: congruent mood Affect: normal affect Quality:SDOH Health Related Social Needs: Health related social needs inadequate housing Exam Narrative Exam Narrative: Alayna is seen walking around her room, no distress Abdomen: softer today, still some tenderness in the epigastrium but no rebound or guarding and abdomen is not distended and no longer firm Psych Mental Status: mental status grossly normal Speech and Movement: speech and movement normal Mood: congruent mood Affect: normal affect DS: Data Vitals/I&O Vitals and I&O: Vital Signs Temperature 37.2 C 09/01/23 15:03 Temperature Source Temporal Artery Scan 09/01/23 15:03 Pulse 71 09/01/23 15:03 Pulse Rhythm Regular 09/01/23 09:17 Respiratory Rate 17 09/01/23 15:03 Respiratory Effort Normal 09/01/23 09:17 Respiratory Depth Normal 09/01/23 09:17 Respiratory Pattern Normal 09/01/23 09:17 Blood Pressure 149/52 H 09/01/23 15:03 Pulse Oximetry 96 09/01/23 15:03 Oxygen Delivery Method Room Air 09/01/23 15:03 Oxygen Flow Rate 0 09/01/23 15:03 Pain Level 0 09/01/23 15:03 Intake & Output 08/31/23 09/01/23 09/01/23 23:59 11:59 23:59 Intake Total 1010 / 1020 10 10 Output Total 800 / 900 800 / 800 Balance 210 / 120 -790 / -790 Weight 65.6 kg Intake: IV 1010 / 1020 Output: Urine 800 / 900 800 / 800 Other: Urine Color Yellow Yellow Urine Appearance Clear Clear Urine Odor Normal Normal Voiding Methods Toilet Toilet Data Completed and Pending Labs on day of discharge: Labs from last 24 hours 09/01/23 09/01/23 08/31/23 12:37 06:50 19:10 WBC 4.03 L RBC 4.12 Hgb 11.6 Hct 34.5 L MCV 84 MCH 28.2 MCHC 33.6 RDW 17.7 H Plt Count 119 L MPV 10.4 Immature Gran % 0.2 Neutrophils % 77.2 Lymphocytes % 13.9 Monocytes % 6.2 Eosinophils % 2.0 Basophils % 0.5 Nucleated RBC % 0.0 Absolute Neutrophils 3.11 Absolute Lymphocytes 0.56 L Absolute Monocytes 0.25 Absolute Eosinophils 0.08 Absolute Basophils 0.02 VBG Lactate 1.9 H 2.2 H* Sodium 142 Potassium 3.9 Chloride 104 Carbon Dioxide 26.7 Anion Gap 11.3 H BUN 9 Creatinine 0.8 Est GFR (CKD-EPI 2020) 78.72 Glucose 132 H Calcium 8.7 Total Bilirubin 1.1 H AST 18 ALT 34 Alkaline Phosphatase 82 C-Reactive Protein 3.65 H Total Protein 6.9 Albumin 3.6 Lipase 41 Add-On Test Request 08/31/23 13:00 WBC RBC Hgb Hct MCV MCH MCHC RDW Plt Count MPV Immature Gran % Neutrophils % Lymphocytes % Monocytes % Eosinophils % Basophils % Nucleated RBC % Absolute Neutrophils Absolute Lymphocytes Absolute Monocytes Absolute Eosinophils Absolute Basophils VBG Lactate Sodium Potassium Chloride Carbon Dioxide Anion Gap BUN Creatinine Est GFR (CKD-EPI 2020) Glucose Calcium Total Bilirubin AST ALT Alkaline Phosphatase C-Reactive Protein Total Protein Albumin Lipase Add-On Test Request Done Preliminary micro results at discharge 08/30/23 21:25 Blood Culture - Preliminary Blood NO GROWTH 24 HOURS 08/30/23 21:03 Blood Culture - Preliminary Blood NO GROWTH 24 HOURS PFSH All Active Problems Cholelithiasis (Chronic) Pyuria (Acute) Enteritis (Acute) Lumbago (Acute) Abnormal mammogram (Acute) Hypothyroidism (Chronic) s/p R partial thyroidectomy Arteriosclerosis of both carotid arteries (Acute) 08/31/21 [facility] [place] Vascular, f/u in 1 year 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 (Acute 02/17/21) MRI angiogram Neck - [facility] [place] Multinodular thyroid (Acute) Bilateral carotid bruits (Acute) Liver cirrhosis secondary to nonalcoholic steatohepatitis (SILVESTRE) (Chronic ~03/2011) Portal hypertension (Chronic) Splenomegaly (Chronic) 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 (Acute) [id number]/24/20 Crohn's disease (Chronic ~2018) 07/01/21 [facility] [place] note - of small intestine with intestinal obstruction Iron deficiency anemia (Acute) Iron deficiency anemia due to chronic blood loss--[facility] [place] Hem Onc note 09/21/22 Essential hypertension (Chronic 02/05/13) Diabetes mellitus type 2, controlled, without complications (Chronic 06/07/12) no retinopathy 01/06/14 A1C goal 7.5 Other and unspecified hyperlipidemia (Chronic 06/07/12) PCEq risk 11% LDL baseline 87 Gastroesophageal reflux disease (Chronic 04/12/11) Former cigarette smoker (Acute) Supraventricular tachycardia, paroxysmal (Chronic 06/02/16) Pulmonary nodule (Chronic) Tubular adenoma (Chronic 10/06/15) [facility] [place] 05/2023 Lichen sclerosus et atrophicus (Chronic 07/26/11) 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) Dr Steinberg Epistaxis (08/18/16) Diarrhea (11/20/14) Chronic interstitial cystitis (02/05/13) Dx: Dr Ponce Hiatal hernia GERD (gastroesophageal reflux disease) Lichen sclerosus et atrophicus Premature menopause Diabetes mellitus, type 2 Surgical History History of colonoscopy (~05/2023) [facility] [place]-repeat 3 yrs H/O partial thyroidectomy (~07/2021) Right thyroid lobectomy, April Christensen, benign process 08/27/21 F/U Gen Surgery Posterior subcapsular age-related cataract of left eye Nuclear sclerotic cataract of left eye Posterior subcapsular age-related cataract, right eye Nuclear sclerotic cataract of right eye [place] [place] [id number] [place] Colonoscopy (10/06/15) Dr Hunter, tubular adenoma, repeat 5 yrs Biopsy of breast (~1992) R benign 1992 Appendectomy 1991 Family History Father Diabetes Sister Diabetes Breast cancer Other Heart disease Personal history of malignant neoplasm Social History Smoking/Tobacco Use Status: Former Tobacco Use Quit Date: 03/20/06 Smoking risk assessment performed?: Yes Alcohol Intake: never Drug use: Never Substance use type: does not use Household members: spouse Housing: house Number of Children: 3 number of grandchildren: 2 current occupation: rertired director from [employer] What is your relationship status?: How often do you talk on the phone with friends or family?: three or more times per week Panel score (0-1 are the most socially isolated patients): 2 What type of physical activity do you participate in: walking Duration: 15-30 minutes/day Frequency: 3-4 times per week Seatbelt use: always Drive intox or ride w/intox team cdl driver: No Working smoke detector in home: Yes Fire extinguisher in home: Yes Carbon monox detector in home: Yes Do you feel safe at home: Yes Do you feel safe in your relationship?: Yes Female Reproductive History Menstrual Menopause type: natural History History 3 Para 3 Hx # Term Pregnancies Multiple births Hx # Pregnancies Ectopic pregnancies AB induced Hx Number of Living Children AB spontaneous Time Spent with Patient Time Spent with Patient: 45-69 minutes Time was spent: preparing to see the patient(eg.review tests), ordering medications,tests, procedures, referring, communicating with other health child caregiver, indepentently interpreting results, counseling the patient (Including the patient's ) and care coordination
== END 2023-09-01 17:10 | disposition home or self-care (01) | DRG 439 ==
LOC: ER 08-31 01:24 → MS 08-31 01:42
PROVIDERS: Internal Medicine; Admitting Provider Family Medicine; Emergency Provider Physician Assistant; PCP Nurse Practitioner Adult Health; Visit Provider Family Medicine
DX: K85.30 Drug induced acute pancreatitis without necrosis or infection (principal); E87.20 Acidosis, unspecified; S22.080A Wedge compression fracture of T11-T12 vertebra, initial encounter for closed fracture; K76.6 Portal hypertension; K50.00 Crohn's disease of small intestine without complications; I85.10 Secondary esophageal varices without bleeding; I47.19 Other supraventricular tachycardia; R18.8 Other ascites; T38.3X5A Adverse effect of insulin and oral hypoglycemic [antidiabetic] drugs, initial encounter; K80.20 Calculus of gallbladder without cholecystitis without obstruction; K21.9 Gastro-esophageal reflux disease without esophagitis; E89.0 Postprocedural hypothyroidism; M54.50 Low back pain, unspecified; I65.23 Occlusion and stenosis of bilateral carotid arteries; K75.81 Nonalcoholic steatohepatitis (NASH); K74.69 Other cirrhosis of liver; D73.2 Chronic congestive splenomegaly; D50.0 Iron deficiency anemia secondary to blood loss (chronic); E11.9 Type 2 diabetes mellitus without complications; Z87.891 Personal history of nicotine dependence; Z79.4 Long term (current) use of insulin; I70.0 Atherosclerosis of aorta; I10 Essential (primary) hypertension; K57.30 Diverticulosis of large intestine without perforation or abscess without bleeding; R59.0 Localized enlarged lymph nodes; I70.1 Atherosclerosis of renal artery; I70.8 Atherosclerosis of other arteries; Z79.84 Long term (current) use of oral hypoglycemic drugs; X58.XXXA Exposure to other specified factors, initial encounter
CPT/HCPCS: 00123; 36415; 80048; 80053; 80076; 83690; 84145; 85652; 87040; 93005; 96361; 96365; 96367; 96375; 99222; 99285; J1650; 71046; 74174; 74178; 81003; 81015; 83605; 84484; 85025; 86140; 93010; 99233; 99239; J0131; J1170; J1815; J1885; J2470; J2543; J3490

== ENCOUNTER 2023-09-04 06:01 | Outpatient (CLI) | payer MEDICARE, BC, SELFPAY ==
[2023-09-04 10:21] LABS: Abs Immature Grans 0.02 10^3/uL (0.0-0.06); Absolute Basophil Count 0.02 10^3/uL (0.0-0.2); Absolute Eosinophil Count 0.05 10^3/uL (0.0-0.7); Absolute Lymphocyte Count 0.46 10^3/uL (1.2-3.4); Absolute Monocyte Count 0.21 10^3/uL (0.1-0.8); Absolute Neutrophil Count 3.01 10^3/uL (1.2-6.7); Basophils % 0.5 %; Eosinophils % 1.3 %; HCT 33.5 % (36.0-46.0); HGB 11.2 g/dL (11.2-15.7); Immature Grans % 0.5 %; Lymphocytes % 12.2 %; MCH 27.9 pg (27.0-33.0); MCHC 33.4 % (32.0-36.0); MCV 83 fL (80-95); MPV 9.7 fL (8.0-11.0); Monocytes % 5.6 %; Neutrophils % 79.9 %; Platelet Count 131 10^3/uL (130-400); RBC 4.02 10^6/uL (3.93-5.22); RDW 17.2 % (11.7-14.6); RDW-SD 52.4 fL; Reticulocyte 2.4 % (0.5-2.4); WBC 3.77 10^3/uL (4.4-10.8)
[2023-09-04 10:31] LABS: ALT 34 U/L (14-59); AST 17 U/L (15-37); Albumin 3.7 g/dL (3.4-5.0); Alkaline Phosphatase 90 U/L (46-116); Anion Gap 9.7 mmol/L (3-11); BUN 15 mg/dL (7-18); Bilirubin, Total 0.8 mg/dL (0.2-1.0); CO2 28.3 mmol/L (21.0-32.0); CREATININE 1.1 mg/dL (0.55-1.02); Chloride 103 mmol/L (98-107); Estimated GFR 53.72 (mL/min/1.73m2); Glucose 203 mg/dL (74-106); Lipase 76 U/L (16-77); Potassium 3.5 mmol/L (3.5-5.1); Sodium 141 mmol/L (136-145)
[2023-09-04 10:44] LABS: Iron 50 ug/dL (50-170); Total Iron Binding Capacity 263 ug/dL (250-450); Transferrin Sat 19 % (15-50)
[2023-09-04 10:57] LABS: Ferritin 223 ng/mL (8-252)
[2023-09-05 09:38] LABS: Tissue Transglutaminase IgA <4.0 CU (<20.0)
[2023-09-06 13:05] LABS: Tissue Transglutaminase Ab IgG 2.4 U/mL
== END 2023-09-04 06:02 | disposition home or self-care (01) ==
LOC: LBO 06:01
PROVIDERS: Internal Medicine; PCP Nurse Practitioner Adult Health; Visit Provider Nurse Practitioner Family
DX: K80.20 Calculus of gallbladder without cholecystitis without obstruction (principal); R74.8 Abnormal levels of other serum enzymes; D50.0 Iron deficiency anemia secondary to blood loss (chronic)
CPT/HCPCS: 36415; 80053; 83690; 86364; 82728; 83540; 83550; 85025; 85045

== ENCOUNTER 2023-09-11 03:04 | Outpatient (CLI) | payer MEDICARE, BC, SELFPAY ==
[2023-09-11 10:59] LABS: ALT 28 U/L (14-59); AST 16 U/L (15-37); Albumin 3.9 g/dL (3.4-5.0); Alkaline Phosphatase 83 U/L (46-116); Anion Gap 9.2 mmol/L (3-11); BUN 11 mg/dL (7-18); Bilirubin, Total 0.81 mg/dL (0.2-1.0); CO2 30.8 mmol/L (21.0-32.0); CREATININE 0.9 mg/dL (0.55-1.02); Calcium 9.1 mg/dL (8.5-10.1); Chloride 100 mmol/L (98-107); Estimated GFR 68.35 (mL/min/1.73m2); Glucose 225 mg/dL (74-106); Lipase 58 U/L (16-77); Potassium 3.8 mmol/L (3.5-5.1); Sodium 140 mmol/L (136-145); Total Protein 7.3 g/dL (6.4-8.2)
== END 2023-09-11 03:05 | disposition home or self-care (01) ==
PROVIDERS: PCP Nurse Practitioner Adult Health; Visit Provider Internal Medicine
DX: E11.9 Type 2 diabetes mellitus without complications (principal); I10 Essential (primary) hypertension
CPT/HCPCS: 36415; 80048; 80053; 83690; 83036

== ENCOUNTER 2023-09-26 03:19 | Outpatient (RCR) | payer MEDICARE, BC, SELFPAY ==
[2023-09-18 00:16] VITALS: BP 151/63; PULSE 90; RESP 18
[2023-09-26] MEDS: Loratidine 10 MG TAB PO (10:13)
[2023-09-26] MEDS: Acetaminophen 325 MG TAB 650 MG PO (10:14)
[2023-09-26] MEDS: VEDOLIZUMAB 300 MG in Normal Saline 250 ML 500 MG IVPB (10:39)
[2023-09-26] MEDS: Normal Saline Flush 10 ML SYR IVP (10:39)
== END 2023-10-18 23:59 | disposition home or self-care (01) ==
LOC: INF 03:19
PROVIDERS: PCP Nurse Practitioner Adult Health; Visit Provider Nurse Practitioner Acute Care
DX: D50.0 Iron deficiency anemia secondary to blood loss (chronic) (principal); K50.90 Crohn's disease, unspecified, without complications; D50.9 Iron deficiency anemia, unspecified
CPT/HCPCS: 96365; J3380

== ENCOUNTER 2023-10-23 03:27 | Outpatient (CLI) | payer MEDICARE, BC, SELFPAY ==
[2023-10-23 14:03] LABS: Abs Immature Grans 0.02 10^3/uL (0.0-0.06); Absolute Basophil Count 0.01 10^3/uL (0.0-0.2); Absolute Eosinophil Count 0.04 10^3/uL (0.0-0.7); Absolute Monocyte Count 0.23 10^3/uL (0.1-0.8); Absolute Neutrophil Count 2.36 10^3/uL (1.2-6.7); Basophils % 0.3 %; Eosinophils % 1.2 %; HGB 11.1 g/dL (11.2-15.7); Immature Grans % 0.6 %; Lymphocytes % 18.4 %; MCH 28.2 pg (27.0-33.0); MCHC 32.6 % (32.0-36.0); MCV 87 fL (80-95); MPV 9.8 fL (8.0-11.0); Monocytes % 7.1 %; Neutrophils % 72.4 %; Platelet Count 159 10^3/uL (130-400); RBC 3.93 10^6/uL (3.93-5.22); RDW 14.7 % (11.7-14.6); RDW-SD 47.2 fL; WBC 3.26 10^3/uL (4.4-10.8)
[2023-10-23 14:36] LABS: Ferritin 127 ng/mL (8-252)
[2023-10-23 15:29] LABS: Iron 39 ug/dL (50-170); Total Iron Binding Capacity 275 ug/dL (250-450); Transferrin Sat 14 % (15-50)
== END 2023-10-23 03:28 | disposition home or self-care (01) ==
PROVIDERS: PCP Nurse Practitioner Adult Health; Visit Provider Nurse Practitioner Family
DX: D50.0 Iron deficiency anemia secondary to blood loss (chronic) (principal)
CPT/HCPCS: 36415; 82728; 83540; 83550; 85025

== ENCOUNTER 2023-10-24 01:37 | Outpatient (RCR) | payer MEDICARE, BC, SELFPAY ==
[2023-10-19 00:10] VITALS: BP 151/63; PULSE 90; RESP 18
[2023-10-24] MEDS: Loratidine 10 MG TAB PO (10:13)
[2023-10-24] MEDS: Acetaminophen 325 MG TAB 650 MG PO (10:13)
[2023-10-24] MEDS: Normal Saline Flush 10 ML SYR IVP (10:14)
[2023-10-24] MEDS: VEDOLIZUMAB 300 MG in Normal Saline 250 ML 500 MG IVPB (10:39)
== END 2023-11-18 23:59 | disposition home or self-care (01) ==
LOC: INF 01:37
PROVIDERS: PCP Nurse Practitioner Adult Health; Visit Provider Nurse Practitioner Acute Care
DX: D50.9 Iron deficiency anemia, unspecified (principal)
CPT/HCPCS: 96365; J3380

== ENCOUNTER 2023-11-01 03:04 | Outpatient (CLI) | payer MEDICARE, BC, SELFPAY ==
[2023-11-01 09:32] LABS: Anion Gap 11.4 mmol/L (3-11); BUN 13 mg/dL (7-18); CO2 28.6 mmol/L (21.0-32.0); Calcium 8.4 mg/dL (8.5-10.1); Chloride 100 mmol/L (98-107); Estimated GFR 59.86 (mL/min/1.73m2); Glucose 146 mg/dL (74-106); Potassium 3.1 mmol/L (3.5-5.1); Sodium 140 mmol/L (136-145)
[2023-11-01 09:35] LABS: Hemoglobin A1C 5.4 % (<5.7)
== END 2023-11-01 03:05 | disposition home or self-care (01) ==
LOC: LBO 03:04
PROVIDERS: PCP Nurse Practitioner Adult Health; Referring Provider Nurse Practitioner Adult Health; Visit Provider Nurse Practitioner Adult Health
DX: I10 Essential (primary) hypertension (principal); E11.9 Type 2 diabetes mellitus without complications
CPT/HCPCS: 36415; 80048; 83036

== ENCOUNTER 2023-11-21 02:32 | Outpatient (RCR) | payer MEDICARE, BC, SELFPAY ==
[2023-11-19 00:06] VITALS: BP 151/63; PULSE 90; RESP 18
[2023-11-21] MEDS: Acetaminophen 325 MG TAB 650 MG PO (10:16)
[2023-11-21] MEDS: Loratidine 10 MG TAB PO (10:16)
[2023-11-21] MEDS: Normal Saline Flush 10 ML SYR IVP (10:17)
[2023-11-21] MEDS: VEDOLIZUMAB 300 MG in Normal Saline 250 ML 500 MG IVPB (10:24)
[2023-11-21 11:01] LABS: HCT 32.7 % (36.0-46.0); HGB 10.8 g/dL (11.2-15.7); MCH 28.3 pg (27.0-33.0); MCV 86 fL (80-95); MPV 11.3 fL (8.0-11.0); Platelet Count 125 10^3/uL (130-400); RBC 3.82 10^6/uL (3.93-5.22); RDW 15.1 % (11.7-14.6); WBC 3.53 10^3/uL (4.4-10.8)
[2023-11-21 11:20] LABS: ALT 24 U/L (14-59); AST 22 U/L (15-37); Albumin 3.6 g/dL (3.4-5.0); Alkaline Phosphatase 74 U/L (46-116); Bilirubin, Direct 0.4 mg/dL (0.0-0.2); Bilirubin, Total 0.99 mg/dL (0.2-1.0); C-Reactive Protein 0.88 mg/dL (<or=0.5); Total Protein 6.9 g/dL (6.4-8.2)
== END 2023-12-18 23:59 | disposition home or self-care (01) ==
LOC: INF 02:32
PROVIDERS: PCP Nurse Practitioner Adult Health; Visit Provider Nurse Practitioner Acute Care
DX: K50.90 Crohn's disease, unspecified, without complications (principal)
CPT/HCPCS: 36415; 80076; 85027; 96365; 86140; J3380

== ENCOUNTER 2023-12-26 03:15 | Outpatient (CLI) | payer MEDICARE, BC, SELFPAY ==
[2023-12-26 14:14] LABS: Abs Immature Grans 0.01 10^3/uL (0.0-0.06); Absolute Basophil Count 0.03 10^3/uL (0.0-0.2); Absolute Eosinophil Count 0.06 10^3/uL (0.0-0.7); Absolute Lymphocyte Count 0.57 10^3/uL (1.2-3.4); Basophils % 0.7 %; Eosinophils % 1.4 %; HCT 36.7 % (36.0-46.0); HGB 11.7 g/dL (11.2-15.7); Immature Grans % 0.2 %; MCH 27.1 pg (27.0-33.0); MCHC 31.9 % (32.0-36.0); MCV 85 fL (80-95); MPV 10.1 fL (8.0-11.0); Monocytes % 6.9 %; Neutrophils % 77.8 %; Platelet Count 134 10^3/uL (130-400); RBC 4.32 10^6/uL (3.93-5.22); RDW 14.5 % (11.7-14.6); RDW-SD 44.5 fL; WBC 4.37 10^3/uL (4.4-10.8)
[2023-12-26 14:47] LABS: Ferritin 50 ng/mL (8-252)
[2023-12-26 15:33] LABS: Iron 42 ug/dL (50-170); Total Iron Binding Capacity 315 ug/dL (250-450); Transferrin Sat 13 % (15-50)
== END 2023-12-26 03:16 | disposition home or self-care (01) ==
PROVIDERS: PCP Nurse Practitioner Adult Health; Visit Provider Nurse Practitioner Family
DX: D50.0 Iron deficiency anemia secondary to blood loss (chronic) (principal)
CPT/HCPCS: 36415; 82728; 83540; 83550; 85025

== ENCOUNTER 2024-01-16 01:50 | Outpatient (RCR) | payer MEDICARE, BC, SELFPAY ==
[2023-12-19 00:06] VITALS: BP 151/63; PULSE 90; RESP 18
[2023-12-19] MEDS: Acetaminophen 325 MG TAB 650 MG PO (10:22)
[2023-12-19] MEDS: Loratidine 10 MG TAB PO (10:22)
[2023-12-19] MEDS: Normal Saline Flush 10 ML SYR IVP (10:22)
[2023-12-19] MEDS: VEDOLIZUMAB 300 MG in Normal Saline 250 ML 500 MG IVPB (11:00)
[2024-01-16] MEDS: Loratidine 10 MG TAB PO (10:06)
[2024-01-16] MEDS: Acetaminophen 325 MG TAB 650 MG PO (10:07)
[2024-01-16] MEDS: Normal Saline Flush 10 ML SYR IVP (10:07)
[2024-01-16] MEDS: VEDOLIZUMAB 300 MG in Normal Saline 250 ML 500 MG IVPB (10:25)
== END 2024-01-18 23:59 | disposition home or self-care (01) ==
LOC: INF 01:50
PROVIDERS: PCP Nurse Practitioner Adult Health; Visit Provider Nurse Practitioner Acute Care
DX: K50.90 Crohn's disease, unspecified, without complications
CPT/HCPCS: 96365; J3380

== ENCOUNTER 2024-01-29 14:45 | Outpatient (CLI) | payer MEDICARE, BC, SELFPAY ==
--- NOTE | 2024-01-29 14:00 | DI.RAD_ITS ---
Exam(s) XR KNEE RT 3V AP,LAT,CHADWICK EXAM: XR KNEE RT 3V AP,LAT,CHADWICK CLINICAL HISTORY: suspect effusion; +bulge,pain,swelling, rt knee, m25.561,m25.461. TECHNIQUE: 2D digital imaging was performed of the right knee. Three views obtained. AP, lateral an d PA tunnel views were obtained. COMPARISON: No exams were available for comparison FINDINGS: BONES: No acute fracture is present. No bony destructive lesion is seen. There is a enthesophyte at t he anterior superior patella. JOINTS: The knee is normally aligned. There is a small joint effusion. SOFT TISSUE: Normal. IMPRESSION: Small joint effusion. DATA REPOSITORY: RADIATION DOSE DELIVERED:
== END 2024-01-29 15:05 ==
LOC: DI 14:46
PROVIDERS: PCP Nurse Practitioner Adult Health; Visit Provider Nurse Practitioner Adult Health
DX: M25.561 Pain in right knee (principal); M25.461 Effusion, right knee
CPT/HCPCS: 36415; 73562; 85652; 86200; 87798; 84550; 85025; 86140; 86618

== ENCOUNTER 2024-01-29 14:47 | Outpatient (CLI) | payer MEDICARE, BC, SELFPAY ==
[2024-01-29 14:58] LABS: ESR 5 mm/hr (0-30)
[2024-01-29 14:59] LABS: Abs Immature Grans 0.02 10^3/uL (0.0-0.06); Absolute Basophil Count 0.03 10^3/uL (0.0-0.2); Absolute Lymphocyte Count 0.83 10^3/uL (1.2-3.4); Absolute Monocyte Count 0.27 10^3/uL (0.1-0.8); Absolute Neutrophil Count 4.28 10^3/uL (1.2-6.7); Basophils % 0.5 %; Eosinophils % 1.8 %; HCT 34.2 % (36.0-46.0); HGB 10.9 g/dL (11.2-15.7); Immature Grans % 0.4 %; MCH 26.3 pg (27.0-33.0); MCHC 31.9 % (32.0-36.0); MCV 83 fL (80-95); MPV 9.5 fL (8.0-11.0); Monocytes % 4.9 %; Neutrophils % 77.4 %; Platelet Count 165 10^3/uL (130-400); RBC 4.14 10^6/uL (3.93-5.22); RDW 15.1 % (11.7-14.6); RDW-SD 44.4 fL; WBC 5.53 10^3/uL (4.4-10.8)
[2024-01-29 16:15] LABS: C-Reactive Protein 0.59 mg/dL (<or=0.5); Uric Acid 6.3 mg/dL (2.6-6.0)
[2024-01-30 09:50] LABS: Cyclic Citrullinated Peptide <2.5 U/mL (<5.0)
[2024-01-30 10:18] LABS: Lyme Ab w Rflx to Lyme Confirm Negative (Negative)
[2024-02-01 00:30] LABS: Anaplasma phagocytophilum Negative (Negative); B. miyamotoi PCR Negative (Negative); Babesia divergens/MO-1 Negative (Negative); Babesia duncani Negative (Negative); Babesia microti Negative (Negative); Ehrlichia chaffeensis Negative (Negative); Ehrlichia ewingii/canis Negative (Negative); Ehrlichia muris eauclairensis Negative (Negative)
== END 2024-01-29 14:48 | disposition home or self-care (01) ==
LOC: LBO 14:48
PROVIDERS: PCP Nurse Practitioner Adult Health; Visit Provider Nurse Practitioner Adult Health
DX: M25.561 Pain in right knee (principal); M25.461 Effusion, right knee
CPT/HCPCS: 36415; 85652; 86200; 87798; 84550; 85025; 86140; 86618

== ENCOUNTER 2024-02-13 01:55 | Outpatient (RCR) | payer MEDICARE, BC, SELFPAY ==
[2024-01-19 00:05] VITALS: BP 151/63; PULSE 90; RESP 18
[2024-02-13] MEDS: Acetaminophen 325 MG TAB 650 MG PO (10:55)
[2024-02-13] MEDS: Loratidine 10 MG TAB PO (10:55)
[2024-02-13] MEDS: VEDOLIZUMAB 300 MG in Normal Saline 250 ML 500 MG IVPB (10:56)
[2024-02-13 11:25] LABS: HCT 31.3 % (36.0-46.0); HGB 9.8 g/dL (11.2-15.7); MCH 25.8 pg (27.0-33.0); MCHC 31.3 % (32.0-36.0); MCV 82 fL (80-95); MPV 10.6 fL (8.0-11.0); Platelet Count 147 10^3/uL (130-400); RDW 14.8 % (11.7-14.6); RDW-SD 43.1 fL; WBC 4.02 10^3/uL (4.4-10.8)
[2024-02-13] MEDS: Normal Saline Flush 10 ML SYR IVP (11:32)
[2024-02-13 11:41] LABS: ALT 31 U/L (14-59); AST 33 U/L (15-37); Albumin 3.7 g/dL (3.4-5.0); Alkaline Phosphatase 70 U/L (46-116); Total Protein 7.2 g/dL (6.4-8.2)
[2024-02-13 11:46] LABS: C-Reactive Protein < 0.50 mg/dL (<or=0.5)
== END 2024-02-17 23:59 | disposition home or self-care (01) ==
LOC: INF 01:55
PROVIDERS: Student in an Organized Health Care Education/Training Program; PCP Nurse Practitioner Adult Health; Visit Provider Nurse Practitioner Acute Care
DX: K50.90 Crohn's disease, unspecified, without complications (principal); D50.9 Iron deficiency anemia, unspecified
CPT/HCPCS: 36415; 80076; 85027; 96365; 86140; J3380

== ENCOUNTER 2024-02-27 02:26 | Outpatient (CLI) | payer MEDICARE, BC, SELFPAY ==
[2024-02-27 15:01] LABS: Abs Immature Grans 0.02 10^3/uL (0.0-0.06); Absolute Basophil Count 0.03 10^3/uL (0.0-0.2); Absolute Eosinophil Count 0.07 10^3/uL (0.0-0.7); Absolute Lymphocyte Count 0.63 10^3/uL (1.2-3.4); Absolute Monocyte Count 0.49 10^3/uL (0.1-0.8); Absolute Neutrophil Count 3.83 10^3/uL (1.2-6.7); Basophils % 0.6 %; Eosinophils % 1.4 %; HCT 30.9 % (36.0-46.0); HGB 9.3 g/dL (11.2-15.7); Immature Grans % 0.4 %; Lymphocytes % 12.4 %; MCH 24.7 pg (27.0-33.0); MCHC 30.1 % (32.0-36.0); MCV 82 fL (80-95); MPV 10.1 fL (8.0-11.0); Monocytes % 9.7 %; Neutrophils % 75.5 %; Platelet Count 146 10^3/uL (130-400); RBC 3.76 10^6/uL (3.93-5.22); RDW 14.9 % (11.7-14.6); RDW-SD 44.1 fL; Reticulocyte 3.4 % (0.5-2.4); WBC 5.07 10^3/uL (4.4-10.8)
[2024-02-27 15:57] LABS: Ferritin 9 ng/mL (8-252)
== END 2024-02-27 02:27 | disposition home or self-care (01) ==
LOC: LBO 02:27
PROVIDERS: PCP Nurse Practitioner Adult Health; Visit Provider Nurse Practitioner Family
DX: D50.0 Iron deficiency anemia secondary to blood loss (chronic) (principal)
CPT/HCPCS: 36415; 82728; 85025; 85045

== ENCOUNTER 2024-03-08 00:56 | Outpatient (RCR) | payer MEDICARE, BC, SELFPAY ==
[2024-02-18 00:20] VITALS: BP 151/63; PULSE 90; RESP 18
[2024-03-07] MEDS: Normal Saline Flush 10 ML SYR IVP (13:23)
[2024-03-07] MEDS: methylPREDNISolone SUCC 40 MG VIAL IVP (13:23)
[2024-03-08 10:05] VITALS: BP 174/66; PULSE 75; RESP 18; TEMP 36.6; O2SAT 97
[2024-03-08] MEDS: Acetaminophen 325 MG TAB 650 MG PO (10:27)
[2024-03-08] MEDS: Normal Saline Flush 10 ML SYR IVP (10:28)
[2024-03-08] MEDS: Loratidine 10 MG TAB PO (10:28)
[2024-03-08] MEDS: VEDOLIZUMAB 300 MG in Normal Saline 250 ML 500 MG IVPB (10:54)
== END 2024-03-19 23:59 | disposition home or self-care (01) ==
LOC: INF 00:56
PROVIDERS: PCP Nurse Practitioner Adult Health; Visit Provider Nurse Practitioner Acute Care
DX: K50.90 Crohn's disease, unspecified, without complications (principal); D50.0 Iron deficiency anemia secondary to blood loss (chronic)
CPT/HCPCS: 96365; 96374; 96375; J2919; J3380; Q0138

== ENCOUNTER 2024-04-08 01:53 | Outpatient (RCR) | payer MEDICARE, BC, SELFPAY ==
[2024-03-20 00:24] VITALS: BP 151/63; PULSE 90; RESP 18; TEMP 36.6
[2024-04-08] MEDS: Loratidine 10 MG TAB PO (09:01)
[2024-04-08] MEDS: Acetaminophen 325 MG TAB 650 MG PO (09:02)
[2024-04-08] MEDS: Normal Saline Flush 10 ML SYR IVP ×2 (09:09→09:29)
[2024-04-08] MEDS: VEDOLIZUMAB 300 MG in Normal Saline 250 ML 500 MG IVPB (09:29)
== END 2024-04-19 23:59 | disposition home or self-care (01) ==
LOC: INF 01:53
PROVIDERS: PCP Nurse Practitioner Adult Health; Visit Provider Nurse Practitioner Acute Care
DX: D50.0 Iron deficiency anemia secondary to blood loss (chronic) (principal)
CPT/HCPCS: 96365; J3380

== ENCOUNTER 2024-05-03 00:35 | Outpatient (RCR) | payer MEDICARE, BC, SELFPAY ==
[2024-05-03] MEDS: Acetaminophen 325 MG TAB 650 MG PO (09:11)
[2024-05-03] MEDS: Loratidine 10 MG TAB PO (09:11)
[2024-05-03] MEDS: VEDOLIZUMAB 300 MG in Normal Saline 250 ML 500 MG IVPB (09:32)
[2024-05-03] MEDS: Normal Saline Flush 10 ML SYR IVP (09:32)
== END 2024-05-17 23:59 | disposition home or self-care (01) ==
LOC: INF 00:35
PROVIDERS: PCP Nurse Practitioner Adult Health; Visit Provider Nurse Practitioner Acute Care
DX: D50.9 Iron deficiency anemia, unspecified (principal)
CPT/HCPCS: 96365; J3380

== ENCOUNTER 2024-05-13 02:57 | Outpatient (CLI) | payer MEDICARE, BC, SELFPAY ==
[2024-05-13 07:19] LABS: Abs Immature Grans 0.02 10^3/uL (0.0-0.06); Absolute Basophil Count 0.02 10^3/uL (0.0-0.2); Absolute Eosinophil Count 0.06 10^3/uL (0.0-0.7); Absolute Lymphocyte Count 0.56 10^3/uL (1.2-3.4); Absolute Monocyte Count 0.27 10^3/uL (0.1-0.8); Absolute Neutrophil Count 2.74 10^3/uL (1.2-6.7); Basophils % 0.5 %; Eosinophils % 1.6 %; HCT 31.1 % (36.0-46.0); HGB 9.4 g/dL (11.2-15.7); Immature Grans % 0.5 %; Lymphocytes % 15.3 %; MCHC 30.2 % (32.0-36.0); MCV 86 fL (80-95); MPV 9.9 fL (8.0-11.0); Monocytes % 7.4 %; Neutrophils % 74.7 %; Platelet Count 122 10^3/uL (130-400); RBC 3.62 10^6/uL (3.93-5.22); RDW 15.6 % (11.7-14.6); RDW-SD 48.1 fL; WBC 3.67 10^3/uL (4.4-10.8)
[2024-05-13 07:41] LABS: Hemoglobin A1C 6.3 % (<5.7)
[2024-05-13 08:01] LABS: Iron 35 ug/dL (50-170); Total Iron Binding Capacity 394 ug/dL (250-450); Transferrin Sat 9 % (15-50)
[2024-05-13 08:01] LABS: COMMENT (LAB VIEW ONLY) 183.09 mg/dL; Microalb ug/mg Crea 5.1 ug/mg Cr
[2024-05-13 08:09] LABS: ALT 28 U/L (14-59); AST 19 U/L (15-37); Albumin 3.8 g/dL (3.4-5.0); Alkaline Phosphatase 81 U/L (46-116); Anion Gap 9.3 mmol/L (3-11); BUN 19 mg/dL (7-18); Bilirubin, Total 0.63 mg/dL (0.2-1.0); CO2 28.7 mmol/L (21.0-32.0); Calcium 9.2 mg/dL (8.5-10.1); Calculated LDL 34 mg/dL (<100); Chloride 103 mmol/L (98-107); Cholesterol 99 mg/dL (<200); Estimated GFR 59.86 (mL/min/1.73m2); Glucose 199 mg/dL (74-106); HDL Cholesterol 38 mg/dL (40-60); Potassium 3.8 mmol/L (3.5-5.1); Sodium 141 mmol/L (136-145); TSH (W/Ref FT4) 4.68 uIU/mL (0.36-3.74); Total Protein 7.4 g/dL (6.4-8.2); Triglyceride 139 mg/dL (<150)
[2024-05-13 08:12] LABS: Ferritin 13 ng/mL (8-252)
[2024-05-13 08:26] LABS: FREE T4 1.13 ng/dL (0.76-1.46)
== END 2024-05-13 02:58 | disposition home or self-care (01) ==
PROVIDERS: Nurse Practitioner Family; Absent Provider Nurse Practitioner Adult Health; PCP Nurse Practitioner Adult Health; Referring Provider Nurse Practitioner Adult Health; Visit Provider Nurse Practitioner Adult Health
DX: I10 Essential (primary) hypertension (principal); I65.23 Occlusion and stenosis of bilateral carotid arteries; I73.9 Peripheral vascular disease, unspecified; E11.9 Type 2 diabetes mellitus without complications; Z79.4 Long term (current) use of insulin; E89.0 Postprocedural hypothyroidism; E87.6 Hypokalemia; S22.080A Wedge compression fracture of T11-T12 vertebra, initial encounter for closed fracture; E83.51 Hypocalcemia; D50.0 Iron deficiency anemia secondary to blood loss (chronic)
CPT/HCPCS: 36415; 80053; 80061; 82043; 82570; 82728; 83036; 83540; 83550; 84439; 84443; 85025; 85045

== ENCOUNTER 2024-06-04 11:00 | Outpatient (RCR) | payer MEDICARE, BC, SELFPAY ==
[2024-06-03] MEDS: Loratidine 10 MG TAB PO (09:13)
[2024-06-03] MEDS: Acetaminophen 325 MG TAB 650 MG PO (09:13)
[2024-06-03] MEDS: VEDOLIZUMAB 300 MG in Normal Saline 250 ML 500 MG IVPB (09:57)
[2024-06-03] MEDS: Normal Saline Flush 5 ML SYR IVP (10:48)
[2024-06-03 11:09] LABS: HGB 7.7 g/dL (11.2-15.7); MCH 23.8 pg (27.0-33.0); MCHC 29.6 % (32.0-36.0); MCV 81 fL (80-95); MPV 11.2 fL (8.0-11.0); Platelet Count 120 10^3/uL (130-400); RBC 3.23 10^6/uL (3.93-5.22); RDW 14.6 % (11.7-14.6); WBC 3.44 10^3/uL (4.4-10.8)
[2024-06-03 11:36] LABS: ALT 30 U/L (14-59); AST 17 U/L (15-37); Albumin 3.4 g/dL (3.4-5.0); Alkaline Phosphatase 78 U/L (46-116); Bilirubin, Direct 0.2 mg/dL (0.0-0.2); Bilirubin, Total 0.6 mg/dL (0.2-1.0); C-Reactive Protein < 0.50 mg/dL (<or=0.5); Total Protein 6.6 g/dL (6.4-8.2)
[2024-06-04] MEDS: FERRIC DERISOMALTOSE 1,000 MG in Normal Saline 250 ML 346.667 MG IVPB (11:32)
[2024-06-04] MEDS: methylPREDNISolone SUCC 40 MG VIAL IV (11:32)
[2024-06-04] MEDS: Normal Saline Flush 10 ML SYR IVP (11:33)
[2024-06-04] MEDS: Normal Saline Flush 5 ML SYR IVP (11:33)
[2024-06-04 11:40] VITALS: BP 126/65; PULSE 65; RESP 17; TEMP 36.3; O2SAT 98
== END 2024-06-17 23:59 | disposition home or self-care (01) ==
LOC: INF 11:00
PROVIDERS: Internal Medicine; PCP Nurse Practitioner Adult Health; Visit Provider Nurse Practitioner Acute Care
DX: K50.90 Crohn's disease, unspecified, without complications (principal); D50.0 Iron deficiency anemia secondary to blood loss (chronic)
CPT/HCPCS: 36415; 80076; 85027; 96365; 86140; J1437; J2919; J3380

== ENCOUNTER 2024-07-02 03:27 | Outpatient (RCR) | payer MEDICARE, BC, SELFPAY ==
[2024-07-01] MEDS: Acetaminophen 325 MG TAB 650 MG PO (09:26)
[2024-07-01] MEDS: Loratidine 10 MG TAB PO (09:26)
[2024-07-01] MEDS: Normal Saline Flush 10 ML SYR IVP (09:27)
[2024-07-01 09:54] LABS: HGB 10.3 g/dL (11.2-15.7); Reticulocyte 4.4 % (0.5-2.4)
[2024-07-01 10:22] LABS: Ferritin 47 ng/mL (8-252)
[2024-07-01] MEDS: VEDOLIZUMAB 300 MG in Normal Saline 250 ML 500 MG IVPB (10:42)
[2024-07-02] MEDS: methylPREDNISolone SUCC 40 MG VIAL IV (11:10)
[2024-07-02] MEDS: Normal Saline Flush 5 ML SYR IVP (11:10)
[2024-07-02] MEDS: FERRIC DERISOMALTOSE 1,000 MG in Normal Saline 250 ML 520 MG IVPB (11:16)
== END 2024-07-17 23:59 | disposition home or self-care (01) ==
LOC: INF 03:27
PROVIDERS: Nurse Practitioner Family; PCP Nurse Practitioner Adult Health; Visit Provider Nurse Practitioner Acute Care
DX: D50.0 Iron deficiency anemia secondary to blood loss (chronic) (principal)
CPT/HCPCS: 36415; 96365; 96374; 96375; 82728; 85018; 85045; J1437; J2919; J3380

== ENCOUNTER 2024-07-29 03:29 | Outpatient (RCR) | payer MEDICARE, BC, SELFPAY ==
[2024-07-29 09:30] LABS: HGB 11.4 g/dL (11.2-15.7); Reticulocyte 3.2 % (0.5-2.4)
[2024-07-29] MEDS: Loratidine 10 MG TAB PO (09:34)
[2024-07-29] MEDS: Normal Saline Flush 10 ML SYR IVP (09:34)
[2024-07-29] MEDS: Acetaminophen 325 MG TAB 650 MG PO (09:34)
[2024-07-29 10:00] LABS: Ferritin 217 ng/mL (8-252)
[2024-07-29] MEDS: VEDOLIZUMAB 300 MG in Normal Saline 250 ML 500 MG IVPB (10:01)
== END 2024-08-17 23:59 | disposition home or self-care (01) ==
LOC: INF 03:29
PROVIDERS: Nurse Practitioner Family; PCP Nurse Practitioner Adult Health; Visit Provider Nurse Practitioner Acute Care
DX: D50.0 Iron deficiency anemia secondary to blood loss (chronic) (principal); K50.90 Crohn's disease, unspecified, without complications
CPT/HCPCS: 36415; 96365; 82728; 85018; 85045; J3380

== ENCOUNTER 2024-08-27 02:08 | Outpatient (RCR) | payer MEDICARE, BC, SELFPAY ==
[2024-08-26] MEDS: Acetaminophen 325 MG TAB 650 MG PO (08:57)
[2024-08-26] MEDS: Loratidine 10 MG TAB PO (08:57)
[2024-08-26] MEDS: Normal Saline Flush 10 ML SYR IVP (09:00)
[2024-08-26 09:31] LABS: HGB 10.1 g/dL (11.2-15.7)
[2024-08-26] MEDS: VEDOLIZUMAB 300 MG in Normal Saline 250 ML 500 MG IVPB (09:34)
[2024-08-26 10:06] LABS: Ferritin 39 ng/mL (8-252)
[2024-08-27] MEDS: methylPREDNISolone SUCC 40 MG VIAL IV (11:13)
[2024-08-27] MEDS: FERRIC DERISOMALTOSE 1,000 MG in Normal Saline 250 ML 520 MG IVPB (11:19)
[2024-08-27] MEDS: Normal Saline Flush 10 ML SYR IVP (12:34)
== END 2024-09-16 23:59 | disposition home or self-care (01) ==
LOC: INF 02:08
PROVIDERS: Nurse Practitioner Family; PCP Nurse Practitioner Adult Health; Visit Provider Nurse Practitioner Acute Care
DX: D50.0 Iron deficiency anemia secondary to blood loss (chronic) (principal)
CPT/HCPCS: 36415; 96365; 82728; 85018; 85045; J1437; J2919; J3380

== ENCOUNTER 2024-09-23 03:24 | Outpatient (RCR) | payer MEDICARE, BC, SELFPAY ==
[2024-09-23] MEDS: Acetaminophen 325 MG TAB 650 MG PO (09:15)
[2024-09-23] MEDS: Normal Saline Flush 10 ML SYR IVP ×2 (09:16→10:33)
[2024-09-23] MEDS: Loratidine 10 MG TAB PO (09:17)
[2024-09-23 09:35] LABS: HGB 10.9 g/dL (11.2-15.7)
[2024-09-23] MEDS: VEDOLIZUMAB 300 MG in Normal Saline 250 ML 500 MG IVPB (09:36)
[2024-09-23 10:01] LABS: Iron 50 ug/dL (50-170); Total Iron Binding Capacity 279 ug/dL (250-450); Transferrin Sat 18 % (15-50)
[2024-09-23 10:14] LABS: Ferritin 163 ng/mL (8-252)
== END 2024-10-17 23:59 | disposition home or self-care (01) ==
LOC: INF 03:24
PROVIDERS: Nurse Practitioner Family; PCP Nurse Practitioner Adult Health; Visit Provider Nurse Practitioner Acute Care
DX: D50.0 Iron deficiency anemia secondary to blood loss (chronic) (principal)
CPT/HCPCS: 96365; 82728; 83540; 83550; 85018; 85045; J3380

== ENCOUNTER 2024-10-21 02:04 | Outpatient (CLI) | payer MEDICARE, BC, SELFPAY ==
[2024-10-21 10:10] LABS: HGB 12.2 g/dL (11.2-15.7)
[2024-10-21 10:30] LABS: Iron 54 ug/dL (50-170); Total Iron Binding Capacity 321 ug/dL (250-450); Transferrin Sat 17 % (15-50)
[2024-10-21 10:57] LABS: Ferritin 92 ng/mL (8-252)
== END 2024-10-21 02:05 | disposition home or self-care (01) ==
LOC: INF 10:26
PROVIDERS: Nurse Practitioner Family; PCP Nurse Practitioner Adult Health; Visit Provider Nurse Practitioner Acute Care
DX: D50.9 Iron deficiency anemia, unspecified (principal)
CPT/HCPCS: 36415; 96365; 82728; 83540; 83550; 85018; 85045; J3380

== ENCOUNTER 2024-10-21 02:05 | Outpatient (CLI) | payer MEDICARE, BC, SELFPAY ==
[2024-10-21] MEDS: Acetaminophen 325 MG TAB 650 MG PO (09:38)
[2024-10-21] MEDS: Loratidine 10 MG TAB PO (09:38)
[2024-10-21] MEDS: VEDOLIZUMAB 300 MG in Normal Saline 250 ML 500 MG IVPB (10:05)
[2024-10-21] MEDS: Normal Saline Flush 10 ML SYR IVP (10:15)
== END 2024-10-21 02:06 | disposition home or self-care (01) ==
PROVIDERS: PCP Nurse Practitioner Adult Health; Visit Provider Nurse Practitioner Adult Health
DX: D50.9 Iron deficiency anemia, unspecified (principal)
CPT/HCPCS: 36415; 96365; J3380

== ENCOUNTER 2024-10-22 11:28 | Outpatient (RCR) | payer MEDICARE, BC, SELFPAY ==
[2024-10-22] MEDS: FERRIC DERISOMALTOSE 1,000 MG in Normal Saline 250 ML 346.667 MG IVPB (11:23)
[2024-10-22] MEDS: methylPREDNISolone SUCC 40 MG VIAL IVP (11:23)
[2024-10-22] MEDS: Normal Saline Flush 10 ML SYR IVP (11:23)
== END 2024-11-17 23:59 | disposition home or self-care (01) ==
LOC: INF 11:28
PROVIDERS: PCP Nurse Practitioner Adult Health; Visit Provider Nurse Practitioner Acute Care
DX: K50.90 Crohn's disease, unspecified, without complications (principal)
CPT/HCPCS: 96365; 96374; J1437; J2919

== ENCOUNTER 2024-11-20 03:07 | Outpatient (CLI) | payer MEDICARE, BC, SELFPAY ==
[2024-11-20 11:31] LABS: Abs Immature Grans 0.01 10^3/uL (0.0-0.06); HCT 32.5 % (36.0-46.0); HGB 10.5 g/dL (11.2-15.7); Immature Grans % 0.2 %; MCH 28.2 pg (27.0-33.0); MCHC 32.3 % (32.0-36.0); MCV 87 fL (80-95); MPV 10.9 fL (8.0-11.0); Platelet Count 127 10^3/uL (130-400); RBC 3.72 10^6/uL (3.93-5.22); RDW 15.6 % (11.7-14.6); RDW-SD 49.5 fL; WBC 4.10 10^3/uL (4.4-10.8)
[2024-11-20 11:39] LABS: INR 1.1 (0.9-1.1); Prothrombin Time 10.9 sec (9.1-11.1)
[2024-11-20 11:45] LABS: ALT 29 U/L (14-59); AST 17 U/L (15-37); Albumin 3.7 g/dL (3.4-5.0); Alkaline Phosphatase 74 U/L (46-116); Anion Gap 8.4 mmol/L (3-11); BUN 15 mg/dL (7-18); Bilirubin, Total 0.6 mg/dL (0.2-1.0); C-Reactive Protein 0.56 mg/dL (<or=0.5); CO2 27.6 mmol/L (21.0-32.0); Calcium 8.8 mg/dL (8.5-10.1); Chloride 103 mmol/L (98-107); Estimated GFR 67.50 (mL/min/1.73m2); Glucose 192 mg/dL (74-106); Potassium 4.0 mmol/L (3.5-5.1); Sodium 139 mmol/L (136-145); Total Protein 6.6 g/dL (6.4-8.2)
[2024-11-20 11:48] LABS: Iron 46 ug/dL (50-170); Total Iron Binding Capacity 265 ug/dL (250-450); Transferrin Sat 17 % (15-50)
[2024-11-20 11:59] LABS: Ferritin 222 ng/mL (8-252)
== END 2024-11-20 03:08 | disposition home or self-care (01) ==
PROVIDERS: Internal Medicine; Nurse Practitioner Family; PCP Nurse Practitioner Adult Health; Visit Provider Nurse Practitioner Acute Care
DX: D50.0 Iron deficiency anemia secondary to blood loss (chronic) (principal); K74.60 Unspecified cirrhosis of liver
CPT/HCPCS: 36415; 80053; 82105; 82728; 83540; 83550; 85025; 85045; 85610; 86140

== ENCOUNTER 2024-11-25 03:43 | Outpatient (CLI) | payer MEDICARE, BC, SELFPAY ==
[2024-11-25] MEDS: VEDOLIZUMAB 300 MG in Normal Saline 250 ML 500 MG IVPB (09:36)
[2024-11-25] MEDS: Normal Saline Flush 10 ML SYR IVP (09:36)
== END 2024-11-25 03:44 | disposition home or self-care (01) ==
LOC: INF 03:44
PROVIDERS: PCP Nurse Practitioner Adult Health; Visit Provider Nurse Practitioner Acute Care
DX: D50.0 Iron deficiency anemia secondary to blood loss (chronic) (principal)
CPT/HCPCS: 96365; J3380

== ENCOUNTER 2024-12-23 03:14 | Outpatient (CLI) | payer MEDICARE, BC, SELFPAY ==
[2024-12-23] MEDS: Loratidine 10 MG TAB PO (09:32)
[2024-12-23] MEDS: Acetaminophen 325 MG TAB 650 MG PO (09:32)
[2024-12-23] MEDS: Normal Saline Flush 10 ML SYR IVP (09:33)
[2024-12-23] MEDS: VEDOLIZUMAB 300 MG in Normal Saline 250 ML 500 MG IVPB (09:53)
[2024-12-23 10:22] LABS: HCT 32.1 % (36.0-46.0); HGB 10.5 g/dL (11.2-15.7); MCH 28.3 pg (27.0-33.0); MCHC 32.7 % (32.0-36.0); MCV 87 fL (80-95); MPV 10.8 fL (8.0-11.0); Platelet Count 124 10^3/uL (130-400); RBC 3.71 10^6/uL (3.93-5.22); RDW 15.0 % (11.7-14.6); RDW-SD 47.8 fL; WBC 3.38 10^3/uL (4.4-10.8)
[2024-12-23 10:28] LABS: HGB 10.3 g/dL (11.2-15.7)
[2024-12-23 11:30] LABS: ALT 34 U/L (14-59); AST 22 U/L (15-37); Albumin 4.0 g/dL (3.4-5.0); Alkaline Phosphatase 83 U/L (46-116); Bilirubin, Direct 0.3 mg/dL (0.0-0.2); Bilirubin, Total 0.7 mg/dL (0.2-1.0); C-Reactive Protein 0.52 mg/dL (<or=0.5); Total Protein 7.2 g/dL (6.4-8.2)
[2024-12-23 11:32] LABS: Iron 52 ug/dL (50-170); Total Iron Binding Capacity 295 ug/dL (250-450); Transferrin Sat 18 % (15-50)
[2024-12-23 11:42] LABS: Ferritin 114 ng/mL (8-252)
== END 2024-12-23 03:15 | disposition home or self-care (01) ==
LOC: INF 03:15
PROVIDERS: Internal Medicine; Nurse Practitioner Family; PCP Nurse Practitioner Adult Health; Visit Provider Nurse Practitioner Acute Care
DX: D50.0 Iron deficiency anemia secondary to blood loss (chronic) (principal)
CPT/HCPCS: 36415; 80076; 85027; 96365; 82728; 83540; 83550; 85018; 85045; 86140; J3380

== ENCOUNTER 2025-01-20 03:26 | Outpatient (CLI) | payer MEDICARE, BC, SELFPAY ==
[2025-01-20] MEDS: Loratidine 10 MG TAB PO (10:56)
[2025-01-20] MEDS: Normal Saline Flush 10 ML SYR IVP (10:56)
[2025-01-20] MEDS: Acetaminophen 325 MG TAB 650 MG PO (10:56)
[2025-01-20] MEDS: VEDOLIZUMAB 300 MG in Normal Saline 250 ML 500 MG IVPB (11:28)
[2025-01-20 11:46] LABS: HGB 10.8 g/dL (11.2-15.7)
[2025-01-20 12:17] LABS: Iron 53 ug/dL (50-170); Total Iron Binding Capacity 373 ug/dL (250-450); Transferrin Sat 14 % (15-50)
[2025-01-20 12:24] LABS: Ferritin 45 ng/mL (8-252)
== END 2025-01-20 03:27 | disposition home or self-care (01) ==
LOC: INF 03:26
PROVIDERS: Nurse Practitioner Family; PCP Nurse Practitioner Adult Health; Visit Provider Nurse Practitioner Acute Care
DX: K50.90 Crohn's disease, unspecified, without complications (principal); D50.0 Iron deficiency anemia secondary to blood loss (chronic)
CPT/HCPCS: 36415; 96365; 82728; 83540; 83550; 85018; 85045; J3380

== ENCOUNTER 2025-01-21 07:12 | Outpatient (CLI) | payer MEDICARE, BC, SELFPAY ==
[2025-01-21] MEDS: methylPREDNISolone SUCC 40 MG VIAL (11:00)
[2025-01-21] MEDS: Normal Saline Flush 10 ML SYR IVP (11:05)
[2025-01-21] MEDS: FERRIC DERISOMALTOSE 1,000 MG in Normal Saline 250 ML 346.667 MG IVPB (11:21)
== END 2025-01-21 07:13 | disposition home or self-care (01) ==
PROVIDERS: PCP Nurse Practitioner Adult Health; Visit Provider Nurse Practitioner Adult Health
DX: D50.9 Iron deficiency anemia, unspecified (principal)
CPT/HCPCS: 96365; 96374; 96375; J1437; J2919

== ENCOUNTER 2025-02-17 03:28 | Outpatient (CLI) | payer MEDICARE, BC, SELFPAY ==
[2025-02-17] MEDS: Acetaminophen 325 MG TAB 650 MG PO (09:08)
[2025-02-17] MEDS: Normal Saline Flush 10 ML SYR IVP (09:08)
[2025-02-17] MEDS: Loratidine 10 MG TAB PO (09:08)
[2025-02-17 09:33] LABS: HGB 10.7 g/dL (11.2-15.7)
[2025-02-17] MEDS: VEDOLIZUMAB 300 MG in Normal Saline 250 ML 500 MG IVPB (09:35)
[2025-02-17 09:53] LABS: Ferritin 132 ng/mL (7-271)
[2025-02-17 10:00] LABS: Iron 64 ug/dL (50-170); Total Iron Binding Capacity 289 ug/dL (250-425); Transferrin Sat 22 % (15-50)
== END 2025-02-17 03:29 | disposition home or self-care (01) ==
PROVIDERS: Nurse Practitioner Family; PCP Nurse Practitioner Adult Health; Visit Provider Nurse Practitioner Acute Care
DX: K50.90 Crohn's disease, unspecified, without complications (principal); D50.0 Iron deficiency anemia secondary to blood loss (chronic)
CPT/HCPCS: 36415; 96365; 82728; 83540; 83550; 85018; 85045; J3380

== ENCOUNTER → 2025-02-28 01:24 | Outpatient (CLI) | payer MEDICARE, BC, SELFPAY ==
--- NOTE | 2025-02-28 12:35 | DI.MAMMO_ITS ---
Exam(s) MAMMO SCREENING EXAM: MAMMO SCREENING CLINICAL HISTORY: screening,z12.39 TECHNIQUE: Mammograms were interpreted according to the usual protocol including computer analysis with CAD system, tomosynthesis and C-view imaging. COMPARISON: 2014 through 2023 FINDINGS: The breasts are composed of scattered fibroglandular densities, Breast Density category B. No suspicious masses or suspicious microcalcifications are seen. No skin thickening or abnormal axillary lymph nodes are seen. There has been no significant change from prior exams. IMPRESSION: BI-RADS Category 1, Negative mammogram Yearly screening mammography is recommended. Breast Density - Category B - There are scattered areas of fibroglandular density. Breast density Category C or D implies that the patient has dense breast tissue. Dense breast tissue can make it harder to find cancer on a mammogram. Dense breast tissue is also associated with an increased risk of breast cancer. This information about the result of the mammogram report was provided to the patient to raise their awareness. Use this report when you speak with the patient about their risks for breast cancer, which includes their family history. At that time, you may recommend additional screening tests (Ultrasound or MRI) as these tests may add significant information. A negative radiographic report should not delay biopsy if a dominant or clinically suspicious mass is present. Up to ten percent of cancers are not identified on mammography. A negative report may reinforce clinical impression. Adenosis and dense breasts may obscure an underlying neoplasm. False positive reports average 6 to 10%. Patient will receive a letter notifying them of these results.
--- NOTE | 2025-02-28 13:03 | DI.DEXA_ITS ---
Exam(s) XR DEXA BONE DENSITY W/WO ARMIN EXAM: XR DEXA BONE DENSITY W/WO ARMIN CLINICAL HISTORY: interval assessment,screening for osteoporosis, postmenopausal,z78.0 TECHNIQUE: HoloITelagen Horizon C densitometer analysis of left hip, lumbar spine and left forearm. Lateral survey image of the thoracic and lumbar spine. COMPARISON: CR,XR XR LUMBAR SPINE COMPLETE from 08/14/2023 DEXA 2004 FINDINGS: Lateral view of the thoracic and lumbar spine shows no evidence of compression fractures. Bone mineral density measurements of the lumbar spine correspond to a total T- score of -1.7, in the osteopenic range. This represents a 3.7 percent increase from 2004. Bone mineral density measurements of the left hip correspond to a total T-score of -2.9. This represents a 14.4 percent decrease from 2005. The femoral neck T-score is -3.4, in the osteoporotic range. Theleft forearm bone mineral density measurements correspond to a T-score of the distal 3rd of -3.0, in the osteoporotic range. The forearm was not analyzed in 2004. IMPRESSION: Osteopenia of the lumbar spine. Osteoporosis of the hip and forearm.
== END ==
LOC: DI 01:24
PROVIDERS: PCP Nurse Practitioner Adult Health; Visit Provider Nurse Practitioner Adult Health
DX: Z12.31 Encounter for screening mammogram for malignant neoplasm of breast (principal); Z78.0 Asymptomatic menopausal state; Z13.820 Encounter for screening for osteoporosis
CPT/HCPCS: 77063; 77067; 77080